=== PATIENT | male | born 1955 | race Caucasian/White ===

== ENCOUNTER → 2017-08-15 | Day surgery (SDC) | payer MEDICARE ==
[2017-08-14 08:28] VITALS: BMI 32.7
[~2017-08-15] MED LIST: INSULIN ASPART 100 UNIT/ML 1 ML 10 ML VIAL SQ SCH; LACTATED RINGERS 1,000 ML IV SCH; PROPOFOL 10 MG/ML 20 ML VIAL IV ONE; SODIUM CHLORIDE 0.9% 1,000 ML IV SCH
[2017-08-15 07:16] LABS: Glucose,Whole Blood 308 mg/dL (75-99)
[2017-08-15 07:19] VITALS: RESP 16
[2017-08-15 08:57] VITALS: TEMP 98
[2017-08-15 10:01] VITALS: PULSE 68
[2017-08-15 10:02] VITALS: BP 140/64
--- NOTE | 2017-08-15 12:19 | CE ---
CARDIAC ELECTROPHYSIOLOGY REPORT This is a 61-year-old male patient who has severe heart failure and cardiomyopathy who underwent biventricular ICD implantation. He was brought in for ICD testing under anesthesia. He has a etaskr device [employer], [id number]. P waves 2.8 mV, pacing impedance in the atrium 470 ohms, pacing threshold 0.5 V at 0.5 milliseconds. The RV sensing was 22.9 mV, pacing impedance 478 ohms, pacing threshold 0.6 V at at 0.5 milliseconds. LV sensing 7.5 mV, pacing impedance 464 ohms and pacing threshold 1.5 V at 1.5 milliseconds, shock impedance 49 ohms. The shock and T-wave protocol was used to induce ventricular fibrillation. This was adequately and appropriately detected at lead sensitivity and successfully internally defibrillated with an 11 joule shock. The charge time was 1.9 seconds. Shock impedance 38 ohms. shock noise. The device was then reprogrammed. Sensitivity reprogrammed to normal sensitivity. MADIT- RIT programming with appropriate antitachycardia pacing, cardioversion and defibrillation. Patient tolerated the procedure well without any acute complications. IMPRESSION: 1. ICD interrogation with reprogramming to MADIT-RIT programming. 2. DFT at or below 11 joules. MMODL / IJN: [id number] /
== END ==
LOC: CATHEP 06:30
PROVIDERS: ATTEND Internal Medicine Clinical Cardiac Electrophysiology
DX: I42.9 Cardiomyopathy, unspecified (principal); I11.0 Hypertensive heart disease with heart failure; I50.9 Heart failure, unspecified; Z87.891 Personal history of nicotine dependence; I25.10 Atherosclerotic heart disease of native coronary artery without angina pectoris; I47.2 Ventricular tachycardia; Z95.1 Presence of aortocoronary bypass graft; E11.9 Type 2 diabetes mellitus without complications; Z79.4 Long term (current) use of insulin; Z95.810 Presence of automatic (implantable) cardiac defibrillator; E78.5 Hyperlipidemia, unspecified; Z82.49 Family history of ischemic heart disease and other diseases of the circulatory system; Z79.899 Other long term (current) drug therapy
CPT/HCPCS: 93642; J2704

== ENCOUNTER → 2017-10-23 | Outpatient (CLI) | payer MEDICARE ==
[2017-10-23 19:51] LABS: Basophils # (A) 0.1 k/uL (0-0.2); Basophils % (A) 1 %; Eosinophils # (A) 0.2 k/uL (0-0.7); Eosinophils % (A) 3 %; HGB 13.7 gm/dL (13.0-17.5); Lymphocytes # (A) 1.4 k/uL (1.0-4.8); Lymphocytes % (A) 20 %; MCH 27.5 pg (25.0-35.0); MCHC 32.6 g/dL (31.0-37.0); MCV 84.5 fL (80.0-100.0); Mean Platelet Volume 9.4; Monocytes # (A) 0.6 k/uL (0-1.0); Monocytes % (A) 8 %; Neutrophils # (A) 4.6 k/uL (1.3-7.7); Neutrophils % (A) 67 %; Platelet Count 234 k/uL (150-450); RBC 4.97 m/uL (4.30-5.90); WBC 6.9 k/uL (3.8-10.6)
[2017-10-23 19:59] LABS: Albumin 4.1 g/dL (3.5-5.0); Potassium 4.7 mmol/L (3.5-5.1); Total Bilirubin 0.7 mg/dL (0.2-1.3); Total Protein 7.2 g/dL (6.3-8.2)
[2017-10-23 20:10] LABS: T4, Free (Free Thyroxine) 2.33 ng/dL (0.78-2.19)
[2017-10-23 20:24] LABS: PSA Annual Screen 0.68 ng/mL (0.00-4.00)
[2017-10-24 01:33] LABS: Hemoglobin A1C 14.3 % (4.0-6.0)
== END | disposition home or self-care (01) ==
LOC: MMGSC 10:51
PROVIDERS: ATTEND Family Medicine
DX: L03.90 Cellulitis, unspecified (principal); E11.9 Type 2 diabetes mellitus without complications; E78.5 Hyperlipidemia, unspecified; Z12.5 Encounter for screening for malignant neoplasm of prostate
CPT/HCPCS: 84439; 80061; 80053; 84443; 85025; 87070; 87205; 82043; 82570; 83036; 36415; G0103

== ENCOUNTER → 2017-11-07 | Outpatient (CLI) | payer MEDICARE ==
[2017-11-07 23:15] LABS: T4, Free (Free Thyroxine) 1.85 ng/dL (0.78-2.19)
== END | disposition home or self-care (01) ==
LOC: MMGSC 10:11
PROVIDERS: ATTEND Family Medicine
DX: R79.89 Other specified abnormal findings of blood chemistry (principal)
CPT/HCPCS: 36415; 84439; 84443; 84480

== ENCOUNTER → 2019-03-09 | Outpatient (CLI) | payer MEDICARE ==
--- NOTE | 2019-03-09 16:05 | US ---
EXAMINATION TYPE: US carotid duplex BILAT DATE OF EXAM: 03/09/2019 COMPARISON: CLINICAL HISTORY: I73.9 Peripheral vascular disease. HTN, no hx of TIA EXAM MEASUREMENTS: RIGHT: Peak Systolic Velocity (PSV) cm/sec ----- Right CCA: 59.7 ----- Right ICA: 119 ----- Right ECA: 103 ICA/CCA ratio: 2.0 RIGHT: End Diastole cm/sec ----- Right CCA: 10.0 ----- Right ICA: 31.2 ----- Right ECA: 0.0 LEFT: Peak Systolic Velocity (PSV) cm/sec ----- Left CCA: 78.7 ----- Left ICA: 53.2 ----- Left ECA: 188.0 ICA/CCA ratio: 0.7 LEFT: End Diastole cm/sec ----- Left CCA: 12.5 ----- Left ICA: 13.9 ----- Left ECA: 9.1 VERTEBRALS (direction of flow): Right Vertebral: Antegrade Left Vertebral: Antegrade Rhythm: Normal Slightly right CCA significant stenosis. Left ECA elevated velocities. Plaque seen in left bulb, le ft CCA and right bulb. No wall thickening. IMPRESSION: Borderline values for 50-69% stenosis within the right internal carotid artery and incid entally noted 50-69% stenosis of the left external carotid artery. CTA could more accurately assess t he degree of stenosis. Criteria for Assigning % of Stenosis / Diameter reduction (Estimation based on the indirect measurements of the internal carotid artery velocities (ICA PSV). 1. Normal (no stenosis)=ICA PSV < 125 cm/s: ratio < 2.0: ICA EDV<40 cm/s. 2. Less than 50% stenosis=ICA PSV < 125 cm/s: ratio < 2.0: ICA EDV<40 cm/s. 3. 50 to 69% stenosis=ICA PSV of 125 to 230 cm/s: ration 2.0 ? 4.0: ICA EDV 40-100 cm/s. 4. Greater than 70% stenosis to near occlusion= ICA PSV > 230 cm/s: ratio > 4.0: ICA EDV > 100 cm/s. 5. Near occlusion= ICA PSV velocities may be low or undetectable: variable ratio and ICA EDV. 6. Total occlusion=unable to detect flow.
== END ==
LOC: RADUSWWP 15:12
PROVIDERS: ATTEND Family Medicine
DX: I65.21 Occlusion and stenosis of right carotid artery (principal)
CPT/HCPCS: 93880

== ENCOUNTER → 2019-12-23 | Outpatient (CLI) | payer MEDICARE ==
--- NOTE | 2019-12-23 15:03 | US ---
LOWER EXTREMITY VENOUS INSUFFICIENCY CLINICAL HISTORY: L97.922 Non-pressure chronic ulcer LL leg fat exp. SIDE PERFORMED: Bilateral 1) Color flow is present and patency is documented in the following vessels. No DVT or SVT is noted . EIV Common Femoral Vein Deep Femoral Vein Femoral Vein Popliteal Vein Proximal Calf Veins Greater Saph Vein Upper Small Saph Vein 2) There is venous reflux noted at the following venous levels: None 3) Incompetent perforators are noted at these levels: None IMPRESSION: No sonographic evidence of deep venous thrombosis within either the visualized bilateral lower extremities. No venous reflux or incompetent perforators seen. No superficial venous thrombosis identified.
--- NOTE | 2019-12-30 13:29 | P.ARTDOP ---
Arterial Doppler LOWER EXTREMITY ARTERIAL DOPPLER: DATE OF SERVICE: 12/23/2019 Reason for study: Bilateral leg ulcers. Doppler waveforms: Multiphasic bilaterally throughout. Pulse volume recording: Mild distal blunting on the left. Pressure gradients: Only at the foot level more on the left than the right. Ankle-brachial indices: Cannot be occluded. Toe brachial indices: 0.62 on the right, 0.30 on the left Impression: Normal proximal flow. Suspect decreased pressure and waveform at the left foot could be vasospastic phenomenon. Suspect adequate circulatory status for healing..
== END | disposition home or self-care (01) ==
LOC: RADUSWWP 13:34
PROVIDERS: ATTEND Family Medicine
DX: I87.333 Chronic venous hypertension (idiopathic) with ulcer and inflammation of bilateral lower extremity (principal); L97.922 Non-pressure chronic ulcer of unspecified part of left lower leg with fat layer exposed; L97.912 Non-pressure chronic ulcer of unspecified part of right lower leg with fat layer exposed; E11.622 Type 2 diabetes mellitus with other skin ulcer
CPT/HCPCS: 93922; 93923; 93970

== ENCOUNTER 2020-05-24 12:11 | Inpatient (IN) | payer MEDICARE ==
[2020-05-24] MEDS ORDERED: NON FORMULARY DRUG (Dulaglutide [Trulicity] 0.75 MG) SQ SCH (14:45)
[2020-05-24] MEDS: SODIUM CHLORIDE 0.9% 1,000 ML IV SCH (15:10)
[2020-05-24] MEDS: FUROSEMIDE 40 MG TAB PO SCH (15:18)
[2020-05-24] MEDS: PIPERACILLIN-TAZOBACTAM 3.375 GM in SODIUM CHLORIDE 0.9% 100 ML IVPB SCH ×2 (15:18→23:26)
[2020-05-24] MEDS: INSULIN ASPART (NovoLOG) 100 UNIT/ML VIAL SQ SCH ×2 (16:58→20:36)
[2020-05-24 16:59] LABS: Glucose,Whole Blood 110 mg/dL (75-99)
[2020-05-24 17:11] LABS: Basophils # (A) 0.1 k/uL (0-0.2); Basophils % (A) 1 %; Eosinophils # (A) 0.3 k/uL (0-0.7); Eosinophils % (A) 4 %; HCT 32.5 % (39.0-53.0); HGB 10.5 gm/dL (13.0-17.5); Lymphocytes # (A) 1.5 k/uL (1.0-4.8); Lymphocytes % (A) 24 %; MCH 26.6 pg (25.0-35.0); MCHC 32.3 g/dL (31.0-37.0); MCV 82.3 fL (80.0-100.0); Mean Platelet Volume 8.7; Monocytes # (A) 0.5 k/uL (0-1.0); Monocytes % (A) 8 %; Neutrophils % (A) 62 %; Platelet Count 201 k/uL (150-450); RBC 3.94 m/uL (4.30-5.90); WBC 6.5 k/uL (3.8-10.6)
[2020-05-24 17:17] LABS: Albumin 3.4 g/dL (3.5-5.0); Calcium 8.8 mg/dL (8.4-10.2); Potassium 4.4 mmol/L (3.5-5.1); Total Bilirubin 0.5 mg/dL (0.2-1.3); Total Protein 6.1 g/dL (6.3-8.2)
[2020-05-24] MEDS: metOLazone 2.5 MG TAB PO SCH (17:21)
[2020-05-24 20:33] LABS: Glucose,Whole Blood 123 mg/dL (75-99)
[2020-05-24] MEDS: INSULIN DETEMIR (LEVEMIR) 100 UNIT/ML SYR SQ SCH (20:42)
--- NOTE | 2020-05-24 23:57 | P.CONS ---
History of Present Illness - Reason for Consult Consult date: 05/24/20 Bilateral lower extremity wound and cellulitis Requesting physician: Johny Granado - Chief Complaint Bilateral leg wound and redness few days - History of Present Illness Patient is 64-year-old male with a past medical history significant for bilateral lower extremity venous stasis ulcer for the patient follow-up at the wound care center, patient has been evaluated in outpatient setting by his primary care physician was noticed to have more swelling in the leg and some redness with concern for cellulitis patient had been admitted to the hospital and infectious disease was consulted for further management of antibiotic therapy Patient at time of evaluation today that is a 05/24/2020 denies having any fever or chills , patient did have mild the leg pain to the leg wound area with intensity to 3 out of 10 and no radiation patient did have more swelling and redness to the right and left leg denies having any purulent drainage patient denies any chest pain shortness breath or cough no nausea no vomiting no abdominal pain and no diarrhea Review of Systems Positive point has been mentioned in the HPI rest of the systems are negative Past Medical History Past Medical History: Coronary Artery Disease (CAD), Heart Failure, Diabetes Mellitus, Eye Disorder, GERD/Reflux, Hearing Disorder / Deafness, Hyperlipidemia, Hypertension, Myocardial Infarction (LA), Osteoarthritis (OA), Renal Disease, Thyroid Disorder Additional Past Medical History / Comment(s): IDDM type II, neuropathy bilateral hands/forearms/lower legs/feet, current bilateral lower leg wounds/WCC pt, bilateral leg edema, bilateral lower leg cellulitis, ischemic cardiomyopathy/AICD, vtach, past medical record documents paroxysmal Afib/pt does not recall this, bilateral lower leg intermittent claudiaction/PAD, chronic renal disease stage III, anemia, bilateral tinnitis/[place], hypothyroid, arthritis bilateral hands with R hand worse, bilateral glaucoma. Last Myocardial Infarction Date:: 2006 History of Any Multi-Drug Resistant Organisms: None Reported Past Surgical History: Coronary Bypass/CABG, Heart Catheterization, Heart Catheterization With Stent, Pacemaker Additional Past Surgical History / Comment(s): PCI with stent 1998, 2006 CABG 3 vessel and AICD, DFTs, aortagram with runoff, colonoscopy, bilateral cataract removals/lens implants. Past Anesthesia/Blood Transfusion Reactions: No Reported Reaction Date of Last Stent Placement:: 1998 Type of Cardiac Device: Permanent Pacemaker Device Placement Date:: 2006 Past Psychological History: No Psychological Hx Reported Additional Psychological History / Comment(s): Pt resides with his spouse. He uses a cane or walker to ambulate. He drives. Smoking Status: Former smoker Past Alcohol Use History: None Reported, Rare Additional Past Alcohol Use History / Comment(s): STARTED SMOKING AT AGE 17 QUIT 2006 SMOKED 1 1/2 PPD Past Drug Use History: None Reported - Past Family History Sister(s) Additional Family Medical History / Comment(s): Pt has a sister with COPD, another sister with diabetes/copd/htn and another sister with diabetes. Father Family Medical History: Myocardial Infarction (LA) Additional Family Medical History / Comment(s): Father of a LA at the age of 75 yrs. Brother(s) Family Medical History: Coronary Artery Disease (CAD), CVA/TIA, Diabetes Mellitus, Myocardial Infarction (LA) Additional Family Medical History / Comment(s): One brother had a LA at 38yrs and at age 48yrs. Another brother is alive and had a stroke. Mother Family Medical History: Diabetes Mellitus, Renal Disease Additional Family Medical History / Comment(s): Mother at age 62 from renal failure Medications and Allergies Home Medications Medication Instructions Recorded Confirmed Type Fenofibrate 160 mg PO DAILY 03/31/14 05/24/20 History Insulin Lispro [humaLOG Kwikpen] 8 - 10 units SQ DAILY PRN 03/31/14 05/24/20 History Losartan Potassium 50 mg PO DAILY 03/31/14 05/24/20 History Insulin Glargine,Hum.rec.anlog 30 units SQ HS 06/07/17 05/24/20 History [Toujeo Solostar] Atorvastatin [Lipitor] 40 mg PO DAILY 05/24/20 05/24/20 History Dulaglutide [Trulicity] 0.75 mg SQ TU 05/24/20 05/24/20 History Furosemide [Lasix] 40 mg PO BID 05/24/20 05/24/20 History Levothyroxine Sodium [Synthroid] 50 mcg PO DAILY 05/24/20 05/24/20 History Levothyroxine Sodium [Synthroid] 200 mcg PO DAILY 05/24/20 05/24/20 History Metoprolol Tartrate 75 mg PO DAILY 05/24/20 05/24/20 History metOLazone 2.5 mg PO Q48H 05/24/20 05/24/20 History Allergies Allergy/AdvReac Type Severity Reaction Status Date / Time No Known Allergies Allergy Verified 05/24/20 14:17 Physical Exam Vitals: Vital Signs Temp Pulse Resp BP Pulse Ox 05/24/20 19:35 97.6 F 63 16 134/74 99 05/24/20 13:23 97.7 F 65 16 113/73 99 Intake and Output 05/24/20 05/24/20 05/25/20 14:59 22:59 06:59 Intake Total 425 Balance 425 Intake: Intake, IV Titration 225 Amount Sodium Chloride 0.9% 1, 225 000 ml @ 75 mls/hr IV . [id number] VICK Rx#:[id number] Oral 200 Other: Voiding Method Toilet Toilet # Voids 2 Weight 91.229 kg GENERAL DESCRIPTION: Middle-aged male lying in bed, no distress. No tachypnea or accessory muscle of respiration use. HEENT: Shows Pallor , no scleral icterus. Oral mucous membrane is dry. No pharyngeal erythema or thrush NECK: Trachea central, no thyromegaly. LUNGS: Unlabored breathing. Clear to auscultation anteriorly. No wheeze or crackle. HEART: S1, S2, regular rate and rhythm. No loud murmur ABDOMEN: Soft, no tenderness , guarding or rigidity, no organomegaly EXTREMITIES: Bilateral lower extremity with diffuse swelling some superficial ulceration minimal redness no foul-smelling drainage. SKIN: No rash, no masses palpable. NEUROLOGICAL: The patient is awake, alert, oriented x3, mood and affect normal. Results CBC & Chem 7: 05/24/20 16:50 05/24/20 16:50 Labs: Abnormal Lab Results - Last 24 Hours (Table) 05/24/20 05/24/20 05/24/20 Range/Units 16:50 16:50 16:50 RBC 3.94 L (4.30-5.90) m/uL Hgb 10.5 L (13.0-17.5) gm/dL Hct 32.5 L (39.0-53.0) % ESR 35 H (0-15) mm/hr BUN 35 H (9-20) mg/dL Creatinine 1.59 H (0.66-1.25) mg/dL Glucose 105 H (74-99) mg/dL POC Glucose (mg/dL) (75-99) mg/dL Total Protein 6.1 L (6.3-8.2) g/dL Albumin 3.4 L (3.5-5.0) g/dL 05/24/20 05/24/20 Range/Units 16:57 20:31 RBC (4.30-5.90) m/uL Hgb (13.0-17.5) gm/dL Hct (39.0-53.0) % ESR (0-15) mm/hr BUN (9-20) mg/dL Creatinine (0.66-1.25) mg/dL Glucose (74-99) mg/dL POC Glucose (mg/dL) 110 H 123 H (75-99) mg/dL Total Protein (6.3-8.2) g/dL Albumin (3.5-5.0) g/dL Assessment and Plan Assessment: 1- patient with bilateral lower extremity venous stasis ulcer and cellulitis right greater than the left with concern for possible streptococcal cellulitis or gram-positive skin chano clinically doubt gram-negative infection (1) Bilateral lower leg cellulitis Current Visit: Yes Status: Acute Code(s): L03.116 - CELLULITIS OF LEFT LOWER LIMB; L03.115 - CELLULITIS OF RIGHT LOWER LIMB SNOMED Code(s): 495616362 Plan: 1- discontinue Zosyn 2-start the patient cefazolin 2 g every 8 hours 3-local wound care with Aquacel silver dressing followed by Jose wrap from just above the toe to below the knee We will follow on clinical condition and cultures to further adjust medication if needed Thank you for this consultation will follow this patient with you Time with Patient: Greater than 30
[2020-05-25 00:23] LABS: Hemoglobin A1C 8.3 % (4.0-6.0)
[2020-05-25] MEDS: LEVOTHYROXINE 50 MCG TAB PO SCH (05:04)
[2020-05-25] MEDS: LEVOTHYROXINE 100 MCG TAB PO SCH (05:04)
[2020-05-25] MEDS: SODIUM CHLORIDE 0.9% 1,000 ML IV SCH ×3 (05:04→23:49)
[2020-05-25 06:55] LABS: Glucose,Whole Blood 72 mg/dL (75-99)
[2020-05-25] MEDS: INSULIN ASPART (NovoLOG) 100 UNIT/ML VIAL SQ SCH ×4 (07:18→20:25)
[2020-05-25] MEDS: FUROSEMIDE 40 MG TAB PO SCH ×2 (07:36→15:35)
[2020-05-25] MEDS: ATORVASTATIN 40 MG TAB PO SCH (07:36)
[2020-05-25] MEDS: FENOFIBRATE 160 MG TAB PO SCH (07:36)
[2020-05-25] MEDS: LOSARTAN 50 MG TAB PO SCH (07:36)
[2020-05-25] MEDS: METOPROLOL TARTRATE 25 MG TAB PO SCH (07:37)
[2020-05-25 08:05] LABS: Basophils # (A) 0.1 k/uL (0-0.2); Basophils % (A) 1 %; Eosinophils # (A) 0.4 k/uL (0-0.7); Eosinophils % (A) 5 %; HCT 34.2 % (39.0-53.0); HGB 10.9 gm/dL (13.0-17.5); Lymphocytes % (A) 25 %; MCH 26.1 pg (25.0-35.0); MCHC 31.8 g/dL (31.0-37.0); MCV 81.9 fL (80.0-100.0); Mean Platelet Volume 8.2; Monocytes # (A) 0.6 k/uL (0-1.0); Monocytes % (A) 8 %; Neutrophils # (A) 4.6 k/uL (1.3-7.7); Neutrophils % (A) 59 %; Platelet Count 219 k/uL (150-450); RBC 4.18 m/uL (4.30-5.90); RDW 13.8 % (11.5-15.5); WBC 7.8 k/uL (3.8-10.6)
[2020-05-25 08:20] LABS: Albumin 3.5 g/dL (3.5-5.0); Calcium 8.9 mg/dL (8.4-10.2); Total Bilirubin 0.5 mg/dL (0.2-1.3); Total Protein 6.4 g/dL (6.3-8.2)
--- NOTE | 2020-05-25 08:58 | XR ---
EXAMINATION TYPE: XR chest 2V DATE OF EXAM: 05/25/2020 CLINICAL HISTORY: Shortness of breath. Dyspnea. TECHNIQUE: Frontal and lateral views of the chest are obtained. COMPARISON: 12/31/2014 chest radiograph FINDINGS: Left-sided biventricular 3-lead AICD. The cardiomediastinal silhouette is within normal li mits for size. Pulmonary vasculature is normal. There is no focal air space opacity, pleural effusion , or pneumothorax seen. The osseous structures are intact. IMPRESSION: No acute cardiopulmonary process.
--- NOTE | 2020-05-25 09:31 | HP ---
HISTORY AND PHYSICAL A 64-year-old white male who was admitted with bilateral lower extremity venostasis ulcer and worsening wound infection. He had a wound dressing that was matted onto his leg. He changes once a week. He has severe swelling and redness about baseball size across his anterior tibia of the right leg. He has large amount of lymphedema in bilateral legs, 3/10 pain, swelling and redness and purulent drainage. He says he has been trying to change dressing once a week with some Aquacel Silver. He does go to the wound clinic once in a while. 14 POINT REVIEW OF SYSTEMS: Negative. PAST MEDICAL HISTORY: Coronary artery disease, heart failure, diabetes mellitus, eye disorder, hearing disorder, hypertension, myocardial infarction, osteoarthritis, renal disease, thyroid disorder, type 2 diabetes mellitus, neuropathy bilateral hands, lymphedema type changes in his legs as mentioned, ischemic cardiomyopathy, AICD. His pacemaker is hypothyroid arthritis. He had recently uncontrolled diabetes and recently his A1c went from 14 down to 9. PAST SURGICAL HISTORY: CABG surgery, heart catheterization with stents, pacemaker. He resides with his spouse. He has a couple of kids, former smoker, rare alcohol. PAST FAMILY HISTORY: Sister, COPD, diabetes. Father myocardial infarction. Brother coronary artery disease, diabetes mellitus in the mother, diabetes mellitus, renal disease. MEDICATIONS: Fenofibrate 160 mg daily, Humalog Quick Pen 8-10 units subcu with meals, losartan 50 mg daily, Tujeo 30 units daily, Lipitor 40 daily, Trulicity 0.75 mg subcu on Tuesdays, Lasix 40 mg b.i.d., Synthroid 250 mcg daily, metoprolol tartrate 25 mg daily, metabolism 2.5 mg q.48 hours. ALLERGIES: No known drug allergies. Temperature 97.6, pulse 60s, respiratory rate 16 to 18, blood pressure 113 to 134/70s, O2 saturation 99%. CARDIOVASCULAR: S1-S2. LUNGS: Some rales at the bases. PSYCH: Fair mood and affect. NEUROLOGIC: Cranial nerves are intact. Pupils equal, round, reactive. EXTREMITIES: Show lymphedema type swelling, ulceration and redness of the lower extremity, a small size over the anterior tibia of the right leg. NEUROLOGIC: Cranial nerves are intact. White count 6.5, hemoglobin is 10.5. His BUN is 35, creatinine 1.99, hemoglobin 10.5, albumin is 3.4. He has venostasis ulcer, cellulitis, right greater than left and cellulitis of the leg, diabetes mellitus, uncontrolled. History of coronary artery disease, hypothyroidism, hypertension, lymphedema. He is on cefazolin 2 g every 8 hours, Aquacel dressings. Possibly discharge home when his leg improves in the next 24- 48 hours. MMODL / IJN: [id number] /
[2020-05-25 11:44] LABS: Glucose,Whole Blood 202 mg/dL (75-99)
[2020-05-25 16:46] LABS: Glucose,Whole Blood 104 mg/dL (75-99)
--- NOTE | 2020-05-25 17:17 | PN ---
PROGRESS NOTE DATE OF SERVICE: 05/25/2020 REASON FOR FOLLOWUP: Bilateral lower extremity wound and cellulitis. INTERVAL HISTORY: The patient is currently afebrile, has been breathing comfortably. Denies having any chest pain or cough. No nausea, vomiting, abdominal pain or any worsening pain in the legs. PHYSICAL EXAMINATION: Blood pressure is 100/59 with a pulse of 66, temperature 97.9. He is 94% on room air. General description is a middle-aged male up in the chair in no distress. RESPIRATORY SYSTEM: Unlabored breathing. Clear to auscultation anteriorly. HEART: S1, S2. Regular rate and rhythm. ABDOMEN: Soft. No tenderness. Bilateral lower extremities have some swelling, some redness. No drainage. LABS: Hemoglobin is 10.9, white count 7.8, BUN of 37, creatinine 1.95. DIAGNOSTIC IMPRESSION AND PLAN: Patient with bilateral lower extremity venostasis ulcers with secondary cellulitis. Local care to continue with dry Aquacel Silver dressing and Jose wrap to keep the swelling down. IV cefazolin. Monitor his clinical course closely. MMODL / IJN: [id number] /
[2020-05-25 20:12] LABS: Glucose,Whole Blood 216 mg/dL (75-99)
[2020-05-25] MEDS: INSULIN DETEMIR (LEVEMIR) 100 UNIT/ML SYR SQ SCH (20:25)
[2020-05-26] MEDS: LEVOTHYROXINE 100 MCG TAB PO SCH (05:58)
[2020-05-26] MEDS: LEVOTHYROXINE 50 MCG TAB PO SCH (05:58)
[2020-05-26 06:55] LABS: Glucose,Whole Blood 84 mg/dL (75-99)
[2020-05-26] MEDS: SODIUM CHLORIDE 0.9% 1,000 ML IV SCH ×2 (07:22→20:26)
[2020-05-26] MEDS: METOPROLOL TARTRATE 25 MG TAB PO SCH (07:23)
[2020-05-26] MEDS: ATORVASTATIN 40 MG TAB PO SCH (07:23)
[2020-05-26] MEDS: INSULIN ASPART (NovoLOG) 100 UNIT/ML VIAL SQ SCH ×4 (07:23→20:25)
[2020-05-26] MEDS: FUROSEMIDE 40 MG TAB PO SCH ×2 (07:23→15:04)
[2020-05-26] MEDS: FENOFIBRATE 160 MG TAB PO SCH (07:23)
[2020-05-26] MEDS: LOSARTAN 50 MG TAB PO SCH (07:23)
[2020-05-26 12:08] LABS: Glucose,Whole Blood 125 mg/dL (75-99)
--- NOTE | 2020-05-26 15:02 | PN ---
PROGRESS NOTE DATE OF SERVICE: 05/26/2020 REASON FOR FOLLOWUP: Bilateral lower extremity cellulitis, right greater than left. INTERVAL HISTORY: The patient is currently afebrile. The patient is feeling better. Breathing comfortably. Denies having any chest pain, cough, abdominal pain, or any worsening pain to the leg. PHYSICAL EXAMINATION: Blood pressure 132/67, pulse of 82, temperature 98.9. He is 93% on room air. General description is a middle-aged male, up in the chair in no distress. RESPIRATORY SYSTEM: Unlabored breathing, clear to auscultation anteriorly. HEART: S1, S2. Regular rate and rhythm. ABDOMEN: Soft, no tenderness. Legs are currently wrapped up. No obvious drainage on the dressing. LABS: Blood culture negative. DIAGNOSTIC IMPRESSION AND PLAN: Patient with bilateral lower extremity cellulitis, right greater than the left in this patient who did have bilateral lower extremity venostasis ulcer. Patient currently responding to cefazolin to continue finish therapy with oral Keflex. Continue Aquacel Silver dressing and Jose wrap to the leg and monitor clinical course closely. MMODL / IJN: [id number] /
[2020-05-26] MEDS: metOLazone 2.5 MG TAB PO SCH (15:04)
[2020-05-26 17:03] LABS: Glucose,Whole Blood 206 mg/dL (75-99)
[2020-05-26 20:16] LABS: Glucose,Whole Blood 158 mg/dL (75-99)
[2020-05-26] MEDS: INSULIN DETEMIR (LEVEMIR) 100 UNIT/ML SYR SQ SCH (20:25)
[2020-05-27 01:39] VITALS: TEMP 97.9
[2020-05-27] MEDS: LEVOTHYROXINE 100 MCG TAB PO SCH (05:58)
[2020-05-27] MEDS: LEVOTHYROXINE 50 MCG TAB PO SCH (05:59)
[2020-05-27 07:28] LABS: Glucose,Whole Blood 133 mg/dL (75-99)
[2020-05-27] MEDS: INSULIN ASPART (NovoLOG) 100 UNIT/ML VIAL SQ SCH ×2 (07:41→13:19)
[2020-05-27] MEDS: ATORVASTATIN 40 MG TAB PO SCH (07:43)
[2020-05-27] MEDS: FUROSEMIDE 40 MG TAB PO SCH (07:44)
[2020-05-27] MEDS: LOSARTAN 50 MG TAB PO SCH (07:44)
[2020-05-27] MEDS: METOPROLOL TARTRATE 25 MG TAB PO SCH (07:44)
[2020-05-27] MEDS: FENOFIBRATE 160 MG TAB PO SCH (07:46)
[2020-05-27 07:47] VITALS: BP 132/62; PULSE 72; RESP 16
[2020-05-27] MEDS: SODIUM CHLORIDE 0.9% 1,000 ML IV SCH (07:49)
[2020-05-27 12:26] LABS: Glucose,Whole Blood 177 mg/dL (75-99)
--- NOTE | 2020-05-27 12:42 | PN ---
PROGRESS NOTE DATE OF SERVICE: 05/27/2020 REASON FOR FOLLOWUP: Bilateral lower extremity cellulitis. INTERVAL HISTORY: Patient is currently afebrile. The patient denies having any chest pain, shortness of breath or cough. No nausea, no vomiting, no abdominal pain or pain to the lower extremity. PHYSICAL EXAMINATION: Blood pressure 132/62 with a pulse of 78, temperature 97.9, he is 96% on room air. General description is an middle-aged male, up in the chair in no distress. RESPIRATORY SYSTEM: Unlabored breathing, clear to auscultation anteriorly. HEART: S1, S2. Regular rate and rhythm. ABDOMEN: Soft, no tenderness. LABS: No new labs have been obtained today. DIAGNOSTIC IMPRESSION AND PLAN: Patient with bilateral lower extremity cellulitis, right greater than left in this patient. Overall clinical improvement on cefazolin, finished therapy with oral Keflex. Prescription sent to the pharmacy. Continue supportive care. MMODL / IJN: [id number] /
--- NOTE | 2020-05-29 12:02 | CDI ---
Documentation Clarification Form Date: 05/29/2020 11:53:10 AM From: Mariluz Salazar Phone: If you have a question about this query, please contact Anette Lindsey, State Archivist at [phone] between 8am and 5pm. Admit Date: 05/24/2020 12:52:00 PM Patient Name: Cruz Sorenson V Visit Number: [id number] Discharge Date: 05/27/2020 03:15:00 PM ATTENTION: The Clinical Documentation Specialists (CDI) and [facility] Coding Staff appreciate your assistance in clarifying documentation. Please respond to the clarification below the line at the bottom and electronically sign. The CDI & [facility] Coding staff will review the response and follow-up if needed. Please note: Queries are made part of the Legal Health Record. If you have any questions, please contact the author of this message via ITS. Dr. Johny Granado Your patient has the documented diagnosis of bilateral lower extremity cellulitis and DM with PAD, neuropathy and CKD III. Please clarify if there is a link between the diabetes and the cellulitis. A relationship between diagnoses cannot be assumed unless documented as such by the attending physician. In order to capture the severity of condition; please document the relationship, if any, between these diagnoses. History/Risk Factors: DM with peripheral neuropathy and PAD. Venous stasis ulcers Treatment: cefazolin 2 g every 8 hours . Aquacel dressings. Please clarify and document your clinical opinion in the progress notes and discharge summary if any relationship (due to, caused by, secondary to) exists between these two diagnoses. Please include clinical findings supporting your diagnosis. Link between DM and cellulitis No link between DM and cellulitis Other explanation of clinical findings (please specify) Unable to determine (no explanation for clinical findings) MTDD
--- NOTE | 2020-05-30 20:47 | PN ---
PROGRESS NOTE ADDENDUM: Diabetic mellitus and cellulitis. MMODL / IJN: [id number] /
== END 2020-05-27 15:15 | disposition home or self-care (01) | DRG 638 ==
LOC: 4SSUR 12:52
PROVIDERS: ADMIT Family Medicine; ATTEND Family Medicine
DX: E11.628 Type 2 diabetes mellitus with other skin complications (principal); L03.115 Cellulitis of right lower limb; L97.919 Non-pressure chronic ulcer of unspecified part of right lower leg with unspecified severity; L97.929 Non-pressure chronic ulcer of unspecified part of left lower leg with unspecified severity; I13.0 Hypertensive heart and chronic kidney disease with heart failure and stage 1 through stage 4 chronic kidney disease, or unspecified chronic kidney disease; L03.116 Cellulitis of left lower limb; I83.029 Varicose veins of left lower extremity with ulcer of unspecified site; I89.0 Lymphedema, not elsewhere classified; I50.9 Heart failure, unspecified; I83.019 Varicose veins of right lower extremity with ulcer of unspecified site; E03.9 Hypothyroidism, unspecified; E11.40 Type 2 diabetes mellitus with diabetic neuropathy, unspecified; Z79.4 Long term (current) use of insulin; E78.5 Hyperlipidemia, unspecified; H91.90 Unspecified hearing loss, unspecified ear; I25.10 Atherosclerotic heart disease of native coronary artery without angina pectoris; I25.2 Old myocardial infarction; I25.5 Ischemic cardiomyopathy; I48.0 Paroxysmal atrial fibrillation; M19.90 Unspecified osteoarthritis, unspecified site; E11.22 Type 2 diabetes mellitus with diabetic chronic kidney disease; N18.3 Chronic kidney disease, stage 3 (moderate); Z79.890 Hormone replacement therapy; Z79.899 Other long term (current) drug therapy; Z82.3 Family history of stroke; Z82.49 Family history of ischemic heart disease and other diseases of the circulatory system; Z82.5 Family history of asthma and other chronic lower respiratory diseases; Z83.3 Family history of diabetes mellitus; Z84.1 Family history of disorders of kidney and ureter; Z87.891 Personal history of nicotine dependence; Z95.1 Presence of aortocoronary bypass graft; Z95.5 Presence of coronary angioplasty implant and graft; Z98.42 Cataract extraction status, left eye; Z98.41 Cataract extraction status, right eye; Z96.1 Presence of intraocular lens; H40.9 Unspecified glaucoma; H93.13 Tinnitus, bilateral; E11.51 Type 2 diabetes mellitus with diabetic peripheral angiopathy without gangrene; I70.213 Atherosclerosis of native arteries of extremities with intermittent claudication, bilateral legs
CPT/HCPCS: 71046; 80053; 83036; 83880; 85025; 85652; 86140; 87040

== ENCOUNTER 2020-06-23 07:17 | Day surgery (SDC) | payer MEDICARE ==
[2020-06-21 15:07] VITALS: BMI 31.1
[~2020-06-23 07:17] MED LIST changes: -INSULIN ASPART 100 UNIT/ML 1 ML 10 ML VIAL SQ SCH; +LIDOCAINE 1% (10MG/ML) FOR IV START INTRADERMA PRN; -PROPOFOL 10 MG/ML 20 ML VIAL IV ONE; -SODIUM CHLORIDE 0.9% 1,000 ML IV SCH
[2020-06-23 07:53] VITALS: TEMP 97.6
[2020-06-23 08:11] LABS: Glucose,Whole Blood 83 mg/dL (75-99)
[2020-06-23] MEDS ORDERED: PROPOFOL 10 MG/ML 20 ML VIAL IV ONE (08:21)
--- NOTE | 2020-06-23 08:24 | P.GSHP ---
History of Present Illness H&P Date: 06/23/20 Chief Complaint: Diarrhea This a 64-year-old male presents today for colonoscopy. He's had issues with diarrhea. Past Medical History Past Medical History: Coronary Artery Disease (CAD), Heart Failure, Diabetes Mellitus, Eye Disorder, GERD/Reflux, Hearing Disorder / Deafness, Hyperlipidemia, Hypertension, Myocardial Infarction ([place]), Osteoarthritis (OA), Renal Disease, Thyroid Disorder Additional Past Medical History / Comment(s): IDDM type II, neuropathy bilateral hands/forearms/lower legs/feet, RECENT ADMISSION FOR bilateral lower leg wounds/WCC pt, bilateral leg edema, CURRENTLY LEFT LEG IS CLEAR, RT LEG STILL HAS SOME CELLULITIS WITH A DRESSING ON IT, ischemic cardiomyopathy/AICD, vtach, past medical record documents paroxysmal Afib/pt does not recall this, bilateral lower leg intermittent claudiaction/PAD, chronic renal disease stage III, anemia, bilateral tinnitis/[place], hypothyroid, arthritis bilateral hands with R hand worse, Last Myocardial Infarction Date:: 2006 History of Any Multi-Drug Resistant Organisms: None Reported Past Surgical History: Coronary Bypass/CABG, Heart Catheterization, Heart Catheterization With Stent, Pacemaker Additional Past Surgical History / Comment(s): PCI with stent 1998, 2006 CABG 3 vessel and AICD, DFTs, aortagram with runoff, colonoscopy, bilateral cataract removals/lens implants. Past Anesthesia/Blood Transfusion Reactions: No Reported Reaction Date of Last Stent Placement:: 1998 Type of Cardiac Device: Permanent Pacemaker Device Placement Date:: 2006 Past Psychological History: No Psychological Hx Reported Additional Psychological History / Comment(s): Pt resides with his spouse. He uses a cane or walker to ambulate. He drives. Smoking Status: Former smoker Past Alcohol Use History: None Reported Additional Past Alcohol Use History / Comment(s): STARTED SMOKING AT AGE 17 QUIT 2006 SMOKED 1 1/2 PPD Past Drug Use History: None Reported - Past Family History Sister(s) Additional Family Medical History / Comment(s): Pt has a sister with COPD, another sister with diabetes/copd/htn and another sister with diabetes. Father Family Medical History: Myocardial Infarction ([place]) Additional Family Medical History / Comment(s): Father of a [place] at the age of 75 yrs. Brother(s) Family Medical History: Coronary Artery Disease (CAD), CVA/TIA, Diabetes Mellitus, Myocardial Infarction ([place]) Additional Family Medical History / Comment(s): One brother had a [place] at 38yrs and at age 48yrs. Another brother is alive and had a stroke. Mother Family Medical History: Diabetes Mellitus, Renal Disease Additional Family Medical History / Comment(s): Mother at age 62 from renal failure Medications and Allergies Home Medications Medication Instructions Recorded Confirmed Type Fenofibrate 160 mg PO DAILY 03/31/14 06/21/20 History Insulin Lispro [humaLOG Kwikpen] 8 - 10 units SQ ACHS PRN 03/31/14 06/21/20 History Losartan Potassium 50 mg PO DAILY 03/31/14 06/21/20 History Insulin Glargine,Hum.rec.anlog 30 units SQ HS 06/07/17 06/21/20 History [Toujeo Solostar] Atorvastatin [Lipitor] 40 mg PO DAILY 05/24/20 06/21/20 History Dulaglutide [Trulicity] 0.75 mg SQ TU 05/24/20 06/21/20 History Furosemide [Lasix] 40 mg PO BID 05/24/20 06/21/20 History Levothyroxine Sodium [Synthroid] 50 mcg PO DAILY 05/24/20 06/21/20 History Levothyroxine Sodium [Synthroid] 200 mcg PO DAILY 05/24/20 06/21/20 History Metoprolol Tartrate 75 mg PO DAILY 05/24/20 06/21/20 History metOLazone 2.5 mg PO Q48H 05/24/20 06/21/20 History Allergies Allergy/AdvReac Type Severity Reaction Status Date / Time No Known Allergies Allergy Verified 06/21/20 14:52 Surgical - Exam Vital Signs Temp Pulse Resp BP Pulse Ox 97.6 F 67 20 128/61 100 06/23/20 07:52 06/23/20 07:52 06/23/20 07:52 06/23/20 07:52 06/23/20 07:52 - General well developed, well nourished, no distress - Eyes PERRL - ENT normal pinna - Neck no masses - Respiratory normal expansion - Cardiovascular Rhythm: regular - Abdomen Abdomen: soft, non tender Assessment and Plan Assessment: Diarrhea. We'll perform colonoscopy.
--- NOTE | 2020-06-23 08:36 | P.OP ---
Date of Procedure: 06/23/20 Preoperative Diagnosis: Diarrhea Postoperative Diagnosis: Diverticulosis Biopsies of sigmoid colon and rectum pending No evidence of colitis Procedure(s) Performed: Colonoscopy Anesthesia: MAC Surgeon: Prosper Schilling Pathology: none sent (Rectum, sigmoid) Condition: stable Disposition: PACU Description of Procedure: The patient's placed on the endoscopy table in the lateral position. He received IV sedation. The digital rectal exam was performed which revealed no abnormalities. The prostate was symmetric without nodules. The flexible colonoscope was then placed patient anus and passed throughout the entire colon. The ileocecal valve visualized. The cecum, ascending and transverse colon ap peared normal. The descending and sigmoid colon there was moderate diverticular changes. There is no evidence of colitis. A random biopsy of the sigmoid colon and rectum were performed using the cold forcep. Scope was withdrawn from patient.
[2020-06-23 08:39] VITALS: RESP 16
[2020-06-23 08:53] VITALS: BP 100/60; PULSE 62
[2020-06-23 08:58] LABS: Glucose,Whole Blood 74 mg/dL (75-99)
== END 2020-06-23 09:34 | disposition home or self-care (01) ==
LOC: ORWHC2ENDO 07:17
PROVIDERS: ATTEND Surgery
DX: K57.30 Diverticulosis of large intestine without perforation or abscess without bleeding (principal); I13.0 Hypertensive heart and chronic kidney disease with heart failure and stage 1 through stage 4 chronic kidney disease, or unspecified chronic kidney disease; E11.22 Type 2 diabetes mellitus with diabetic chronic kidney disease; N18.3 Chronic kidney disease, stage 3 (moderate); I50.9 Heart failure, unspecified; I25.10 Atherosclerotic heart disease of native coronary artery without angina pectoris; F32.9 Major depressive disorder, single episode, unspecified; E03.9 Hypothyroidism, unspecified; I89.0 Lymphedema, not elsewhere classified; E66.9 Obesity, unspecified; K21.9 Gastro-esophageal reflux disease without esophagitis; H91.90 Unspecified hearing loss, unspecified ear; E78.5 Hyperlipidemia, unspecified; I25.2 Old myocardial infarction; I25.5 Ischemic cardiomyopathy; I48.0 Paroxysmal atrial fibrillation; M19.042 Primary osteoarthritis, left hand; M19.041 Primary osteoarthritis, right hand; Z95.810 Presence of automatic (implantable) cardiac defibrillator; Z83.3 Family history of diabetes mellitus; Z95.5 Presence of coronary angioplasty implant and graft; Z87.891 Personal history of nicotine dependence; Z79.4 Long term (current) use of insulin; Z79.899 Other long term (current) drug therapy; Z79.890 Hormone replacement therapy; Z82.49 Family history of ischemic heart disease and other diseases of the circulatory system; Z68.31 Body mass index [BMI] 31.0-31.9, adult
CPT/HCPCS: 88305; 45380; J2704

== ENCOUNTER 2020-09-21 23:28 | Inpatient (IN) | payer MEDICARE ==
--- NOTE | 2020-09-22 00:23 | ED ---
General Adult HPI - General Chief complaint: Fever Stated complaint: Fever Time Seen by Provider: 09/21/20 23:49 Source: patient Mode of arrival: wheelchair Limitations: no limitations - History of Present Illness Initial comments: 65-year-old male patient presents to the emergency department today for evaluation of fever. Patient states he believes he had a fever starting yesterday. States that the he is having associated nasal congestion and draina ge. States he is sneezing. He denies sore throat or cough. Denies any shortness of breath. Denies abdominal pain, nausea, or vomiting. Denies any diarrhea or constipation. Denies loss of taste or smell. Denies any sick contacts. He does have chronic wounds to the bilateral feet and legs. States he does get regular wound care, last visit to the wound care center was yesterday. They were aware of his fever and were not concerned for wound infection. Patient denies any recent rash, chest pain, abdominal pain, back pain, numbness, tingling, dizziness, weakness, hematuria, dysuria, urinary urgency, urinary frequency, headache, visual changes, or any other complaints. - Related Data Home Medications Medication Instructions Recorded Confirmed Fenofibrate 160 mg PO DAILY 03/31/14 06/21/20 Insulin Lispro [humaLOG Kwikpen] 8 - 10 units SQ ACHS PRN 03/31/14 06/21/20 Losartan Potassium 50 mg PO DAILY 03/31/14 06/21/20 Insulin Glargine,Hum.rec.anlog 30 units SQ HS 06/07/17 06/21/20 [Sofia Fajardo] Atorvastatin [Lipitor] 40 mg PO DAILY 05/24/20 06/21/20 Dulaglutide [Trulicity] 0.75 mg SQ TU 05/24/20 06/21/20 Furosemide [Lasix] 40 mg PO BID 05/24/20 06/21/20 Levothyroxine Sodium [Synthroid] 50 mcg PO DAILY 05/24/20 06/21/20 Levothyroxine Sodium [Synthroid] 200 mcg PO DAILY 05/24/20 06/21/20 Metoprolol Tartrate 75 mg PO DAILY 05/24/20 06/21/20 metOLazone 2.5 mg PO Q48H 05/24/20 06/21/20 Allergies Allergy/AdvReac Type Severity Reaction Status Date / Time No Known Allergies Allergy Verified 09/21/20 23:43 Review of Systems ROS Statement: Those systems with pertinent positive or pertinent negative responses have been documented in the HPI. ROS Other: All systems not noted in ROS Statement are negative. Past Medical History Past Medical History: Coronary Artery Disease (CAD), Heart Failure, Diabetes Mellitus, Eye Disorder, GERD/Reflux, Hearing Disorder / Deafness, Hyperli pidemia, Hypertension, Myocardial Infarction ([place]), Osteoarthritis (OA), Renal Disease, Thyroid Disorder Additional Past Medical History / Comment(s): IDDM type II, neuropathy bilateral hands/forearms/lower legs/feet, RECENT ADMISSION FOR bilateral lower leg wounds/WCC pt, bilateral leg edema, CURRENTLY LEFT LEG IS CLEAR, RT LEG STILL HAS SOME CELLULITIS WITH A DRESSING ON IT, ischemic cardiomyopathy/AICD, vtach, past medical record documents paroxysmal Afib/pt does not recall this, bilateral lower leg intermittent claudiaction/PAD, chronic renal disease stage III, anemia, bilateral tinnitis/[place], hypothyroid, arthritis bilateral hands with R hand worse, Last Myocardial Infarction Date:: 2006 History of Any Multi-Drug Resistant Organisms: None Reported Past Surgical History: Coronary Bypass/CABG, Heart Catheterization, Heart Catheterization With Stent, Pacemaker Additional Past Surgical History / Comment(s): PCI with stent 1998, 2006 CABG 3 vessel and AICD, DFTs, aortagram with runoff, colonoscopy, bilateral cataract removals/lens implants. Past Anesthesia/Blood Transfusion Reactions: No Reported Reaction Date of Last Stent Placement:: 1998 Type of Cardiac Device: Permanent Pacemaker Device Placement Date:: 2006 Past Psychological History: No Psychological Hx Reported Smoking Status: Former smoker Past Alcohol Use History: None Reported Past Drug Use History: None Reported - Past Family History Sister(s) Additional Family Medical History / Comment(s): Pt has a sister with COPD, another sister with diabetes/copd/htn and another sister with diabetes. Father Family Medical History: Myocardial Infarction ([place]) Additional Family Medical History / Comment(s): Father of a [place] at the age of 75 yrs. Brother(s) Family Medical History: Coronary Artery Disease (CAD), CVA/TIA, Diabetes Mellitus, Myocardial Infarction ([place]) Additional Family Medical History / Comment(s): One brother had a [place] at 38yrs and at age 48yrs. Another brother is alive and had a stroke. Mother Family Medical History: Diabetes Mellitus, Renal Disease Additional Family Medical History / Comment(s): Mother at age 62 from renal failure General Exam Limitations: no limitations General appearance: alert, in no apparent distress, other (Physical well- developed, well-nourished adult male patient in no acute distress. Vital signs upon presentation are temperature 102.0F, pulse 100, respirations 18, blood pressure 102/63, pulse ox 93% on room air.) Respiratory exam: Present: normal lung sounds bilaterally. Absent: respiratory distress, wheezes, rales, rhonchi, stridor Cardiovascular Exam: Present: regular rate, normal rhythm, normal heart sounds. Absent: systolic murmur, diastolic murmur, rubs, gallop, clicks GI/Abdominal exam: Present: soft, normal bowel sounds. Absent: distended, tenderness, guarding, rebound, rigid Neurological exam: Present: alert, oriented X3, CN II-XII intact Psychiatric exam: Present: normal affect, normal mood Skin exam: Present: warm, dry, intact, normal color. Absent: rash Course Vital Signs 09/21/20 09/22/20 09/22/20 23:37 01:22 02:33 Temperature 102 F H 100 F H 99.9 F H Pulse Rate 100 85 88 Respiratory 18 20 18 Rate Blood Pressure 102/63 136/60 112/52 O2 Sat by Pulse 93 L 100 97 Oximetry Medical Decision Making - Medical Decision Making 65-year-old male patient percents to the emergency department today for evaluation of fever, congestion, and cough. Physical examination did reveal clear equal lung sounds. Initially he was 93% on room air. Labs reviewed and did reveal white blood cell count at 12.2, hemoglobin 10.3, lymphocytes are low at 0.5. BUN 45, creatinine 1.78. Glucose 260. Lactic acid is 1.0. Blood cultures were obtained. He did test negative for COVID and influenza. He will be admitted for further evaluation and to further rule out COVID as it is suspected his is a false negative given fever and hypoxia without evidence for other infection source. - Lab Data Result diagrams: 09/22/20 00:21 09/22/20 00:21 Lab Results 09/22/20 09/22/20 09/22/20 Range/Units 00:21 00:21 00:21 WBC 12.2 H (3.8-10.6) k/uL RBC 3.89 L (4.30-5.90) m/uL Hgb 10.3 L (13.0-17.5) gm/dL Hct 31.1 L (39.0-53.0) % MCV 79.8 L (80.0-100.0) fL MCH 26.5 (25.0-35.0) pg MCHC 33.2 (31.0-37.0) g/dL RDW 15.1 (11.5-15.5) % Plt Count 196 (150-450) k/uL MPV 8.0 Neutrophils % 88 % Lymphocytes % 4 % Monocytes % 5 % Eosinophils % 1 % Basophils % 1 % Neutrophils # 10.8 H (1.3-7.7) k/uL Lymphocytes # 0.5 L (1.0-4.8) k/uL Monocytes # 0.6 (0-1.0) k/uL Eosinophils # 0.1 (0-0.7) k/uL Basophils # 0.1 (0-0.2) k/uL PT 11.2 (9.0-12.0) sec INR 1.1 (<1.2) APTT 24.9 (22.0-30.0) sec Sodium 134 L (137-145) mmol/L Potassium 4.3 (3.5-5.1) mmol/L Chloride 102 (98-107) mmol/L Carbon Dioxide 24 (22-30) mmol/L Anion Gap 8 mmol/L BUN 45 H (9-20) mg/dL Creatinine 1.78 H (0.66-1.25) mg/dL Est GFR (CKD-EPI)AfAm 46 (>60 ml/min/1.73 sqM) Est GFR (CKD-EPI)NonAf 40 (>60 ml/min/1.73 sqM) Glucose 260 H (74-99) mg/dL Plasma Lactic Acid Gianluca (0.7-2.0) mmol/L Calcium 8.3 L (8.4-10.2) mg/dL Total Bilirubin 0.6 (0.2-1.3) mg/dL AST 29 (17-59) U/L ALT 15 (4-49) U/L Alkaline Phosphatase 63 (38-126) U/L Total Protein 6.1 L (6.3-8.2) g/dL Albumin 3.1 L (3.5-5.0) g/dL Urine Color Urine Appearance (Clear) Urine pH (5.0-8.0) Ur Specific [place] (1.001-1.035) Urine Protein (Negative) Urine Glucose (UA) (Negative) Urine Ketones (Negative) Urine Blood (Negative) Urine Nitrite (Negative) Urine Bilirubin (Negative) Urine Urobilinogen (<2.0) mg/dL Ur Leukocyte Esterase (Negative) Urine RBC (0-5) /hpf Urine WBC (0-5) /hpf Ur Squamous Epith Cells (0-4) /hpf Urine Bacteria (None) /hpf Hyaline Casts (0-2) /lpf Granular Casts (0) /lpf Urine Mucus (None) /hpf Influenza Type A (PCR) (Not Detectd) Influenza Type B (PCR) (Not Detectd) RSV (PCR) (Not Detectd) SARS-CoV-2 (PCR) (Not Detectd) 09/22/20 09/22/20 09/22/20 Range/Units 00:21 00:21 02:30 WBC (3.8-10.6) k/uL RBC (4.30-5.90) m/uL Hgb (13.0-17.5) gm/dL Hct (39.0-53.0) % MCV (80.0-100.0) fL MCH (25.0-35.0) pg MCHC (31.0-37.0) g/dL RDW (11.5-15.5) % Plt Count (150-450) k/uL MPV Neutrophils % % Lymphocytes % % Monocytes % % Eosinophils % % Basophils % % Neutrophils # (1.3-7.7) k/uL Lymphocytes # (1.0-4.8) k/uL Monocytes # (0-1.0) k/uL Eosinophils # (0-0.7) k/uL Basophils # (0-0.2) k/uL PT (9.0-12.0) sec INR (<1.2) APTT (22.0-30.0) sec Sodium (137-145) mmol/L Potassium (3.5-5.1) mmol/L Chloride (98-107) mmol/L Carbon Dioxide (22-30) mmol/L Anion Gap mmol/L BUN (9-20) mg/dL Creatinine (0.66-1.25) mg/dL Est GFR (CKD-EPI)AfAm (>60 ml/min/1.73 sqM) Est GFR (CKD-EPI)NonAf (>60 ml/min/1.73 sqM) Glucose (74-99) mg/dL Plasma Lactic Acid Gianluca 1.0 (0.7-2.0) mmol/L Calcium (8.4-10.2) mg/dL Total Bilirubin (0.2-1.3) mg/dL AST (17-59) U/L ALT (4-49) U/L Alkaline Phosphatase (38-126) U/L Total Protein (6.3-8.2) g/dL Albumin (3.5-5.0) g/dL Urine Color Yellow Urine Appearance Cloudy (Clear) Urine pH 5.0 (5.0-8.0) Ur Specific [place] 1.018 (1.001-1.035) Urine Protein 1+ H (Negative) Urine Glucose (UA) 3+ H (Negative) Urine Ketones Trace H (Negative) Urine Blood Trace H (Negative) Urine Nitrite Negative (Negative) Urine Bilirubin Negative (Negative) Urine Urobilinogen <2.0 (<2.0) mg/dL Ur Leukocyte Esterase Negative (Negative) Urine RBC 1 (0-5) /hpf Urine WBC 1 (0-5) /hpf Ur Squamous Epith Cells <1 (0-4) /hpf Urine Bacteria Rare H (None) /hpf Hyaline Casts 6 H (0-2) /lpf Granular Casts 3 (0) /lpf Urine Mucus Rare H (None) /hpf Influenza Type A (PCR) Not Detected (Not Detectd) Influenza Type B (PCR) Not Detected (Not Detectd) RSV (PCR) Not Detected (Not Detectd) SARS-CoV-2 (PCR) Not Detected (Not Detectd) - Radiology Data Radiology results: report reviewed, image reviewed One view x-ray of the chest is obtained. Report is reviewed in its entirety. Impression by Dr. Jones shows no acute findings in the chest. Disposition Clinical Impression: Fever, Hypoxia Narrative: Rule out covid Disposition: ADMITTED IP TO THIS HOSP Condition: Serious Referrals: Johny Granado MD [Primary Care Provider] - 1-2 days Decision to Admit Reason: Admit from EC Decision Date: 09/22/20 Decision Time: 02:55
[2020-09-22 00:32] LABS: Basophils # (A) 0.1 k/uL (0-0.2); Basophils % (A) 1 %; Eosinophils # (A) 0.1 k/uL (0-0.7); Eosinophils % (A) 1 %; HCT 31.1 % (39.0-53.0); HGB 10.3 gm/dL (13.0-17.5); Lymphocytes # (A) 0.5 k/uL (1.0-4.8); Lymphocytes % (A) 4 %; MCH 26.5 pg (25.0-35.0); MCHC 33.2 g/dL (31.0-37.0); MCV 79.8 fL (80.0-100.0); Monocytes # (A) 0.6 k/uL (0-1.0); Monocytes % (A) 5 %; Neutrophils # (A) 10.8 k/uL (1.3-7.7); Neutrophils % (A) 88 %; Platelet Count 196 k/uL (150-450); RBC 3.89 m/uL (4.30-5.90); RDW 15.1 % (11.5-15.5); WBC 12.2 k/uL (3.8-10.6)
--- NOTE | 2020-09-22 00:38 | XR ---
EXAM: XR Chest, 1 View CLINICAL HISTORY: Fever TECHNIQUE: Frontal view of the chest. COMPARISON: May 25, 2020 FINDINGS: Lungs: Unremarkable. No acute infiltration, atelectasis or mass. Pleural space: Unremarkable. No pneumothorax or pleural fluid. Heart: Unremarkable. No cardiomegaly. Mediastinum: Unremarkable. Bones/joints: Previous sternotomy. Tubes, lines and devices: Stable implanted cardiac pacer. IMPRESSION: No acute findings in the chest.
[2020-09-22 00:42] LABS: Albumin 3.1 g/dL (3.5-5.0); Calcium 8.3 mg/dL (8.4-10.2); Potassium 4.3 mmol/L (3.5-5.1); Total Bilirubin 0.6 mg/dL (0.2-1.3); Total Protein 6.1 g/dL (6.3-8.2)
[2020-09-22 00:44] LABS: INR 1.1 (<1.2); Partial Thromboplastin Time 24.9 sec (22.0-30.0); Prothrombin Time 11.2 sec (9.0-12.0)
[2020-09-22] MEDS: SODIUM CHLORIDE 0.9% 500 ML 500 ML IV SCH (00:53)
[2020-09-22 02:44] LABS: Appearance,Urine Cloudy (Clear); Bacteria,Urine Rare /hpf; Bilirubin,Urine Negative (Negative); Blood,Urine Trace (Negative); Color,Urine Yellow; Glucose,Urine (UA) 3+ (Negative); Granular Casts,Urine 3 /lpf (0); Hyaline Casts,Urine 6 /lpf (0-2); Ketones,Urine Trace (Negative); Leukocyte Esterase,Urine Negative (Negative); Mucus,Urine Rare /hpf; Nitrite,Urine Negative (Negative); Protein,Urine 1+ (Negative); RBC,Urine 1 /hpf (0-5); Specific Gravity,Urine 1.018 (1.001-1.035); Squamous Epithelial Cell,Urine <1 /hpf (0-4); Urobilinogen,Urine <2.0 mg/dL (<2.0); WBC,Urine 1 /hpf (0-5)
[2020-09-22] MEDS ORDERED: ACETAMINOPHEN TAB 325 MG TAB PO PRN (02:54)
[2020-09-22] MEDS ORDERED: NALOXONE 0.4 MG/ML 1 ML VIAL IV PRN (02:54)
[2020-09-22] MEDS ORDERED: INSULIN ASPART (NovoLOG) 100 UNIT/ML VIAL SQ ONE (07:50)
[2020-09-22] MEDS ORDERED: DEXAMETHASONE SOD PHOSPHATE 10 MG/ML 1 ML VIAL IV SCH (09:00)
[2020-09-22] MEDS ORDERED: AZITHROMYCIN 500 MG in SODIUM CHLORIDE 0.9% 250 ML IVPB SCH (09:00)
[2020-09-22] MEDS: ZINC SULFATE 220 MG CAP PO SCH (09:33)
[2020-09-22] MEDS: LEVOTHYROXINE 50 MCG TAB PO SCH (09:33)
[2020-09-22] MEDS: METOPROLOL TARTRATE 25 MG TAB PO SCH (09:33)
[2020-09-22] MEDS: LOSARTAN 50 MG TAB PO SCH (09:34)
[2020-09-22] MEDS: FENOFIBRATE 160 MG TAB PO SCH (09:34)
[2020-09-22] MEDS: ATORVASTATIN 40 MG TAB PO SCH (09:34)
[2020-09-22] MEDS: LEVOTHYROXINE 100 MCG TAB PO SCH (09:34)
[2020-09-22] MEDS: FUROSEMIDE 20 MG TAB PO SCH (09:34)
[2020-09-22] MEDS: INSULIN ASPART (NovoLOG) 100 UNIT/ML VIAL SQ SCH ×2 (12:43→17:33)
--- NOTE | 2020-09-22 14:42 | P.CNPUL ---
History of Present Illness Consult date: 09/22/20 Reason for consult: dyspnea, cough Chief complaint: Shortness of breath History of present illness: This is a pleasant 65-year-old male came into the hospital with ongoing fever, it appears that patient started fever about a day ago also has upper respiratory symptoms, has occasional cough, denies any chest pain shortness of breath, denies any loss of taste or smell, there is no history of sick contact, pharmacist medical history is significant for diabetes mellitus hypertension hypertensive cardiovascular disease dyslipidemia hypothyroidism and congestive heart failure, on arrival he has a fever of 102, however came down to 99, abscess significant for mild leukocytosis and microcytic anemia, acute kidney injury with BUN of 45 creatinine 1.78 also noted glucose 260, LDH is 769 with C- reactive protein was 161, iron panel including a and B as well as covert 19 is negative, his chest x-ray did not show any acute finding, computed tomography scan of the chest is pending, and the patient is being treated with IV antibiotics along with dexamethasone, his oxygen saturation is stable 98% Review of Systems All systems: negative Past Medical History Past Medical History: Coronary Artery Disease (CAD), Heart Failure, Diabetes Mellitus, Eye Disorder, GERD/Reflux, Hearing Disorder / Deafness, Hyperlipidemia, Hypertension, Myocardial Infarction ([place]), Osteoarthritis ([place]), Renal Disease, Thyroid Disorder Additional Past Medical History / Comment(s): IDDM type II, neuropathy bilateral hands/forearms/lower legs/feet, RECENT ADMISSION FOR bilateral lower leg wounds/WCC pt, bilateral leg edema, CURRENTLY LEFT LEG IS CLEAR, RT LEG STILL HAS SOME CELLULITIS WITH A DRESSING ON IT, ischemic cardiomyopathy/AICD, vtach, past medical record documents paroxysmal Afib/pt does not recall this, bilateral lower leg intermittent claudiaction/PAD, chronic renal disease stage III, anemia, bilateral tinnitis/[place], hypothyroid, arthritis bilateral hands with R hand worse, Last Myocardial Infarction Date:: 2006 History of Any Multi-Drug Resistant Organisms: None Reported Past Surgical History: Coronary Bypass/CABG, Heart Catheterization, Heart Catheterization With Stent, Pacemaker Additional Past Surgical History / Comment(s): PCI with stent 1998, 2006 CABG 3 vessel and AICD, DFTs, aortagram with runoff, colonoscopy, bilateral cataract removals/lens implants. Past Anesthesia/Blood Transfusion Reactions: No Reported Reaction Date of Last Stent Placement:: 1998 Type of Cardiac Device: Permanent Pacemaker Device Placement Date:: 2006 Past Psychological History: No Psychological Hx Reported Additional Psychological History / Comment(s): Pt resides with his spouse. He uses a cane or walker to ambulate. He drives. Smoking Status: Former smoker Past Alcohol Use History: None Reported Additional Past Alcohol Use History / Comment(s): STARTED SMOKING AT AGE 17 QUIT 2006 SMOKED 1 1/2 PPD Past Drug Use History: None Reported - Past Family History Sister(s) Additional Family Medical History / Comment(s): Pt has a sister with COPD, another sister with diabetes/copd/htn and another sister with diabetes. Father Family Medical History: Myocardial Infarction ([place]) Additional Family Medical History / Comment(s): Father of a [place] at the age of 75 yrs. Brother(s) Family Medical History: Coronary Artery Disease (CAD), CVA/TIA, Diabetes Mellitus, Myocardial Infarction ([place]) Additional Family Medical History / Comment(s): One brother had a [place] at 38yrs and at age 48yrs. Another brother is alive and had a stroke. Mother Family Medical History: Diabetes Mellitus, Renal Disease Additional Family Medical History / Comment(s): Mother at age 62 from renal failure Medications and Allergies Home Medications Medication Instructions Recorded Confirmed Type Fenofibrate 160 mg PO DAILY 03/31/14 09/22/20 History Insulin Lispro [humaLOG Kwikpen] 8 - 10 units SQ ACHS PRN 03/31/14 09/22/20 History Losartan Potassium 50 mg PO DAILY 03/31/14 09/22/20 History Insulin Glargine,Hum.rec.anlog 30 units SQ HS 06/07/17 09/22/20 History [Toujeo Solostar] Atorvastatin [Lipitor] 40 mg PO DAILY 05/24/20 09/22/20 History Dulaglutide [Trulicity] 0.75 mg SQ TU 05/24/20 09/22/20 History Levothyroxine Sodium [Synthroid] 50 mcg PO DAILY 05/24/20 09/22/20 History Levothyroxine Sodium [Synthroid] 200 mcg PO DAILY 05/24/20 09/22/20 History Metoprolol Tartrate 75 mg PO DAILY 05/24/20 09/22/20 History Furosemide [Lasix] 40 mg PO BID 09/22/20 09/22/20 History Allergies Allergy/AdvReac Type Severity Reaction Status Date / Time No Known Allergies Allergy Verified 09/22/20 08:49 Physical Exam Vitals: Vital Signs Temp Pulse Pulse Resp BP BP Pulse Ox 09/22/20 11:00 97.4 F L 66 17 114/66 98 09/22/20 03:51 100 F H 92 18 146/76 100 09/22/20 02:33 99.9 F H 88 18 112/52 97 09/22/20 01:22 100 F H 85 20 136/60 100 09/21/20 23:37 102 F H 100 18 102/63 93 L Intake and Output 09/21/20 09/22/20 09/22/20 22:59 06:59 14:59 Intake Total 220 Balance 220 Intake: Oral 220 Other: # Voids 2 1 Weight 86.636 kg - Constitutional General appearance: average body habitus, disheveled - EENT Eyes: EOMI, PERRLA Ears: bilateral: normal - Neck Carotids: bilateral: upstroke normal - Respiratory Respiratory: bilateral: CTA - Cardiovascular Rhythm: regular Heart sounds: normal: S1, S2 - Gastrointestinal General gastrointestinal: normal bowel sounds - Neurologic Neurologic: CNII-XII intact - Musculoskeletal Musculoskeletal: gait normal, generalized weakness, strength equal bilaterally - Psychiatric Psychiatric: A&O x's 3, appropriate affect, intact judgment & insight Results - Laboratory Findings CBC and BMP: 09/22/20 00:21 09/22/20 00:21 PT/INR, D-dimer PT 11.2 sec (9.0-12.0) 09/22/20 00:21 INR 1.1 (<1.2) 09/22/20 00:21 Abnormal lab findings: Abnormal Labs 09/22/20 09/22/20 09/22/20 00:21 00:21 02:30 WBC 12.2 H RBC 3.89 L Hgb 10.3 L Hct 31.1 L MCV 79.8 L Neutrophils # 10.8 H Lymphocytes # 0.5 L Sodium 134 L BUN 45 H Creatinine 1.78 H Glucose 260 H Calcium 8.3 L Lactate Dehydrogenase C-Reactive Protein Total Protein 6.1 L Albumin 3.1 L Urine Protein 1+ H Urine Glucose (UA) 3+ H Urine Ketones Trace H Urine Blood Trace H Urine Bacteria Rare H Hyaline Casts 6 H Urine Mucus Rare H 09/22/20 08:47 WBC RBC Hgb Hct MCV Neutrophils # Lymphocytes # Sodium BUN Creatinine Glucose Calcium Lactate Dehydrogenase 769 H C-Reactive Protein 161.0 H Total Protein Albumin Urine Protein Urine Glucose (UA) Urine Ketones Urine Blood Urine Bacteria Hyaline Casts Urine Mucus - Diagnostic Findings Chest x-ray: report reviewed, image reviewed Assessment and Plan Assessment: Febrile illness likely upper respiratory however Covid 19 infection cannot be excluded, agree with broad-spectrum antibiotics Decadron will follow up on computed tomography scan of the chest Plan: As noted above Time with Patient: Greater than 30
[2020-09-22] MEDS ORDERED: INSULIN REGULAR 100 UNIT in SODIUM CHLORIDE 0.9% 100 ML IV SCH (20:45)
[2020-09-22] MEDS ORDERED: INSULIN DETEMIR (LEVEMIR) 100 UNIT/ML SYR SQ SCH (21:00)
--- NOTE | 2020-09-22 21:57 | CONS ---
CONSULTATION DATE OF SERVICE: 09/22/2020 REASON FOR CONSULTATION: Fever. HISTORY OF PRESENT ILLNESS: The patient is a 65-year-old male with a past medical history significant for lower extremity wound and previous episode of cellulitis in this patient who follows at [facility]. The patient presented to the ER early this afternoon with concern about fever. The patient before presentation to the hospital. The patient did have mild URI symptoms but denies having any chest pain, shortness of breath or cough. Denies having any nausea. No vomiting, abdominal pain or diarrhea. The patient apparently has bilateral lower extremity wounds which were dressed in the wound care center on Saturday and apparently there was no concern about any wound infection. Patient on presentation to the hospital did have a fever of 102 degrees Fahrenheit. The patient did have mild tachycardia. The patient has been saturating 93% on room air, currently 99% on 2 L nasal cannula. The patient did have a white count of 12.2 with mild lymphopenia but left shift. Creatinine was elevated at 1.78. Liver enzymes were normal. CRP and LDH were elevated. Urine is negative. Subsequently influenza and albarado PCR came back negative. The patient did have a chest x-ray that has been reported negative for any acute infiltrate. The patient was started on Rocephin and Zithromax. Infectious Disease was consulted for further management of fever and need for antibiotic therapy. REVIEW OF SYSTEMS: Positive points have been mentioned in the HPI. Rest of the systems are negative. PAST MEDICAL HISTORY: Coronary artery disease, heart failure, diabetes mellitus, gastroesophageal reflux disease, hyperlipidemia, hypertension, NV. PAST SURGICAL HISTORY: Coronary artery bypass grafting, heart catheterization with stenting and pacemaker. SOCIAL HISTORY: Remote history of smoking. No drinking or drug use. FAMILY HISTORY: Sister with COPD. Father with history of NV. ALLERGIES: NO KNOWN DRUG ALLERGIES. MEDICATIONS: The patient is currently on Tylenol, Lipitor, Rocephin 1 gram q.12 Zithromax, Decadron, Lasix, Levemir, Synthroid, Cozaar, Narcan, zinc. PHYSICAL EXAMINATION: Blood pressure 121/63 with a pulse of 72, temperature 98.4. He is 99% on 2 L nasal cannula. General description is an elderly male up in the bed in no distress. No tachypnea or accessory muscle of respiration use. HEENT: Examination shows no pallor or scleral icterus. Oral mucous membrane is dry. No pharyngeal erythema or thrush. NECK: Trachea is central. No thyromegaly. LUNGS: Unlabored breathing. Clear to auscultation anteriorly. No wheeze or crackle. HEART: S1, S2. Regular rate and rhythm. ABDOMEN: Soft. No tenderness. No guarding or rigidity. Extremities are currently wrapped up. No obvious drainage on the dressing. NEUROLOGICAL: The patient is awake, alert, oriented x3. Mood and affect normal. LABS: Hemoglobin is 10.3, white count 12.2, BUN of 45, creatinine 1.78. Liver enzymes are normal. Urine is negative. Influenza PCR has been negative. DIAGNOSTIC IMPRESSION AND PLAN: Patient admitted to hospital with fever in this patient with high clinical suspicion for lower extremity wound with cellulitis, clinically not behaving as COVID-19 infection, and this patient does not have any respiratory symptoms. Chest x-ray was negative for any acute infiltrate. The patient did have leukocytosis, more common with bacterial infection than the viral infection. PLAN: 1. We will discontinue Rocephin, Zithromax and Decadron. 2. Will start the patient on cefazolin 2 grams q.8 hours. 3. We will follow his clinical condition and further adjust medication if needed. 4. Thank you for this consultation. Will follow this patient along with you. BELEN / SUZIE: [id number] /
--- NOTE | 2020-09-22 21:59 | CT ---
EXAM: CT Chest Without Intravenous Contrast CLINICAL HISTORY: Shortness of breath TECHNIQUE: Axial computed tomography images of the chest without intravenous contrast. CTDI is 10.8 mGy and DLP is 409.8 mGy-cm. This CT exam was performed using one or more of the following dose reduction techniques: automated exposure control, adjustment of the mA and/or kV according to patient size, and/or use of iterative reconstruction technique. COMPARISON: Chest x-ray from September 22, 2020 at 0027 hours FINDINGS: Lungs: Unremarkable. No mass. No consolidation. Pleural space: Unremarkable. No pneumothorax. No significant effusion. Heart: The heart is mildly enlarged. Severe coronary calcification is present. There are signs of previous CABG. No pericardial effusion is seen. Bones/joints: Mild multilevel degenerative changes are seen throughout the thoracic spine. No fracture or bone lesion is identified. No dislocation. Soft tissues: Unremarkable. Vasculature: The thoracic aorta is mildly calcified but nondilated. Lymph nodes: Unremarkable. No enlarged lymph nodes. Gallbladder and bile ducts: Limited images of the upper abdomen demonstrate a 1 cm calcified gallstone in the dependent portion of the nondilated gallbladder. No pericholecystic inflammation or biliary duct dilation is seen. Tubes, lines and devices: There is a pacing device on the left with leads running to the heart. IMPRESSION: Previous CABG and his reimplantation with cardiomegaly and severe coronary calcification. No pericardial effusion. The lungs are well inflated and clear. No infiltrate or consolidation is seen. Cholelithiasis without dilated gallbladder or visible surrounding inflammation.
[2020-09-23 04:59] VITALS: BP 112/42; PULSE 82; RESP 16; TEMP 99.2
[2020-09-23] MEDS: LEVOTHYROXINE 100 MCG TAB PO SCH (05:20)
[2020-09-23] MEDS: LEVOTHYROXINE 50 MCG TAB PO SCH (05:20)
[2020-09-23 06:19] LABS: Basophils % (A) 0 %; Eosinophils % (A) 0 %; HCT 26.5 % (39.0-53.0); HGB 9.2 gm/dL (13.0-17.5); Lymphocytes # (A) 0.9 k/uL (1.0-4.8); Lymphocytes % (A) 7 %; MCH 27.8 pg (25.0-35.0); MCHC 34.8 g/dL (31.0-37.0); MCV 79.9 fL (80.0-100.0); Mean Platelet Volume 8.2; Monocytes # (A) 0.9 k/uL (0-1.0); Monocytes % (A) 7 %; Neutrophils % (A) 85 %; Platelet Count 174 k/uL (150-450); RBC 3.32 m/uL (4.30-5.90); RDW 14.8 % (11.5-15.5)
[2020-09-23] MEDS: METOPROLOL TARTRATE 25 MG TAB PO SCH (09:09)
[2020-09-23] MEDS: FUROSEMIDE 20 MG TAB PO SCH (09:09)
[2020-09-23] MEDS: LOSARTAN 50 MG TAB PO SCH (09:09)
[2020-09-23] MEDS: ATORVASTATIN 40 MG TAB PO SCH (09:09)
[2020-09-23] MEDS: ZINC SULFATE 220 MG CAP PO SCH (09:09)
[2020-09-23] MEDS: FENOFIBRATE 160 MG TAB PO SCH (09:10)
[2020-09-23 10:56] LABS: African American GFR (CKD) 39.7 (60.0-200.0); Anion Gap 9.4 mmol/L (4.00-12.00); BUN/Creat Ratio 28.5 Ratio (12.00-20.00); C Reactive Protein 18.7 mg/dL (0.0-0.8); Carbon Dioxide 23.6 mmol/L (21.6-31.8); Non-African American GFR(CKD) 34.3 (60.0-200.0)
[2020-09-23 20:24] LABS: Hemoglobin A1C 8.8 % (4.0-6.0)
[2020-09-29 05:24] LABS: Glucose,Whole Blood 157 mg/dL (75-99)
[2020-09-29 05:24] LABS: Glucose,Whole Blood 130 mg/dL (75-99)
[2020-09-29 05:24] LABS: Glucose,Whole Blood 171 mg/dL (75-99)
[2020-09-29 05:24] LABS: Glucose,Whole Blood 165 mg/dL (75-99)
[2020-09-29 05:24] LABS: Glucose,Whole Blood 96 mg/dL (75-99)
[2020-09-29 05:41] LABS: Glucose,Whole Blood 471 mg/dL (75-99)
[2020-09-29 05:41] LABS: Glucose,Whole Blood 427 mg/dL (75-99)
[2020-09-29 05:41] LABS: Glucose,Whole Blood 520 mg/dL (75-99)
[2020-09-29 05:41] LABS: Glucose,Whole Blood 282 mg/dL (75-99)
[2020-09-29 05:41] LABS: Glucose,Whole Blood 263 mg/dL (75-99)
[2020-09-29 05:41] LABS: Glucose,Whole Blood 281 mg/dL (75-99)
[2020-09-29 05:41] LABS: Glucose,Whole Blood 422 mg/dL (75-99)
[2020-09-29 05:41] LABS: Glucose,Whole Blood 227 mg/dL (75-99)
[2020-09-29 05:41] LABS: Glucose,Whole Blood 300 mg/dL (75-99)
== END 2020-09-23 12:17 | disposition home or self-care (01) | DRG 603 ==
LOC: EC 23:28 → 6NMEDSUR 09-22 02:52
PROVIDERS: ADMIT Family Medicine; ATTEND Family Medicine
DX: L03.116 Cellulitis of left lower limb (principal); D72.810 Lymphocytopenia; Z20.828 Contact with and (suspected) exposure to other viral communicable diseases; Z96.1 Presence of intraocular lens; I48.0 Paroxysmal atrial fibrillation; I25.5 Ischemic cardiomyopathy; I25.10 Atherosclerotic heart disease of native coronary artery without angina pectoris; I11.0 Hypertensive heart disease with heart failure; H91.90 Unspecified hearing loss, unspecified ear; E78.5 Hyperlipidemia, unspecified; E11.9 Type 2 diabetes mellitus without complications; K21.9 Gastro-esophageal reflux disease without esophagitis; I50.9 Heart failure, unspecified; Z95.5 Presence of coronary angioplasty implant and graft; Z95.1 Presence of aortocoronary bypass graft; Z87.891 Personal history of nicotine dependence; Z98.42 Cataract extraction status, left eye; Z98.41 Cataract extraction status, right eye; I25.2 Old myocardial infarction; Z83.3 Family history of diabetes mellitus; Z82.5 Family history of asthma and other chronic lower respiratory diseases; Z82.49 Family history of ischemic heart disease and other diseases of the circulatory system; Z82.3 Family history of stroke; Z79.899 Other long term (current) drug therapy; Z79.890 Hormone replacement therapy; Z79.4 Long term (current) use of insulin
CPT/HCPCS: 36415; 71045; 71250; 80048; 80053; 81001; 83036; 83605; 83615; 84145; 85025; 85610; 85730; 86140; 87040; 87636; 93005; 96360; 96361; 99285

== ENCOUNTER 2020-12-06 07:11 | Inpatient (IN) | payer MEDICARE ==
[2020-12-06] MEDS ORDERED: SODIUM CHLORIDE 0.9% 500 ML 500 ML IV STA (07:38)
--- NOTE | 2020-12-06 08:14 | ED ---
General Adult HPI - General Chief complaint: Fever Stated complaint: High blood sugar/dehydration Time Seen by Provider: 12/06/20 07:24 Source: family, RN notes reviewed Mode of arrival: wheelchair Limitations: no limitations - History of Present Illness Initial comments: 65-year-old male with a past medical history of IDDM type II, neuropathy, bilat leg wounds, PAD, chronic renal disease presents to the emergency room for a chief complaint of high blood sugar and fever. Patient reports that his sugars have been high for the past several days. States that yesterday, and her just read "high." Patient has been using his insulin as directed. Patient states he also had a fever of 101.7 last night. He states that it has since resolved however he was supposed to have a pacemaker replaced today and his doctor told him he should come in and be evaluated instead. Patient denies cough congestion sore throat. Patient does have wounds on his lower extremities and recently was admitted for bilateral lower extremity cellulitis. States that these are healing and Dr. Ross did not feel they were infected one week ago. Patient states his legs have been red since and there are knots was to be unwrapped until 2 days from now so has not been able to evaluate them.Patient has no other complaints at this time including shortness of breath, chest pain, abdominal pain, nausea or vomiting, headache, or visual changes. - Related Data Home Medications Medication Instructions Recorded Confirmed Fenofibrate 160 mg PO DAILY 03/31/14 12/06/20 Insulin Lispro [humaLOG Kwikpen] See Protocol SQ ACHS PRN 03/31/14 12/06/20 Losartan Potassium 50 mg PO DAILY 03/31/14 12/06/20 Atorvastatin [Lipitor] 40 mg PO DAILY 05/24/20 12/06/20 Levothyroxine Sodium [Synthroid] 50 mcg PO DAILY 05/24/20 12/06/20 Levothyroxine Sodium [Synthroid] 200 mcg PO DAILY 05/24/20 12/06/20 Metoprolol Tartrate 75 mg PO DAILY 05/24/20 12/06/20 Dulaglutide [Trulicity] 3 mg SQ HENRY 11/30/20 12/06/20 Furosemide [Lasix] 20 mg PO DAILY 11/30/20 12/06/20 Insulin Glargine,Hum.rec.anlog 35 units SQ DAILY 11/30/20 12/06/20 [Toujeo Solostar] Acetaminophen Tab [Tylenol Tab] 1,000 mg PO Q6HR PRN 12/06/20 12/06/20 Allergies Allergy/AdvReac Type Severity Reaction Status Date / Time No Known Allergies Allergy Verified 12/06/20 08:56 Review of Systems ROS Statement: Those systems with pertinent positive or pertinent negative responses have been documented in the HPI. ROS Other: All systems not noted in ROS Statement are negative. Past Medical History Past Medical History: Diabetes Mellitus Additional Past Medical History / Comment(s): IDDM type II, neuropathy bilateral hands/forearms/lower legs/feet, RECENT ADMISSION FOR bilateral lower leg wounds/WCC pt, bilateral leg edema, CURRENTLY LEFT LEG IS CLEAR, RT LEG STILL HAS SOME CELLULITIS WITH A DRESSING ON IT, ischemic cardiomyopathy/AICD, vtach, past medical record documents paroxysmal Afib/pt does not recall this, bilateral lower leg intermittent claudiaction/PAD, chronic renal disease stage III, anemia, bilateral tinnitis/[place], hypothyroid, arthritis bilateral hands with R hand worse, Last Myocardial Infarction Date:: 2006 History of Any Multi-Drug Resistant Organisms: None Reported Past Surgical History: Coronary Bypass/CABG, Heart Catheterization, Heart Catheterization With Stent, Pacemaker Additional Past Surgical History / Comment(s): PCI with stent 1998, 2006 CABG 3 vessel and AICD, DFTs, aortagram with runoff, colonoscopy, bilateral cataract removals/lens implants. Past Anesthesia/Blood Transfusion Reactions: No Reported Reaction Date of Last Stent Placement:: 1998 Type of Cardiac Device: Permanent Pacemaker Device Placement Date:: 2006 Past Psychological History: No Psychological Hx Reported Smoking Status: Never smoker Past Alcohol Use History: None Reported Past Drug Use History: None Reported - Past Family History Sister(s) Additional Family Medical History / Comment(s): Pt has a sister with COPD, another sister with diabetes/copd/htn and another sister with diabetes. Father Family Medical History: Myocardial Infarction (CT) Additional Family Medical History / Comment(s): Father of a CT at the age of 75 yrs. Brother(s) Family Medical History: Coronary Artery Disease (CAD), CVA/TIA, Diabetes Mellitus, Myocardial Infarction (CT) Additional Family Medical History / Comment(s): One brother had a CT at 38yrs and at age 48yrs. Another brother is alive and had a stroke. Mother Family Medical History: Diabetes Mellitus, Renal Disease Additional Family Medical History / Comment(s): Mother at age 62 from renal failure General Exam Limitations: no limitations General appearance: alert, in no apparent distress Head exam: Present: atraumatic, normocephalic, normal inspection Eye exam: Present: normal appearance, PERRL, EOMI. Absent: scleral icterus, conjunctival injection, periorbital swelling ENT exam: Present: normal exam, mucous membranes moist Neck exam: Present: normal inspection, full ROM. Absent: tenderness, meningismus, lymphadenopathy Respiratory exam: Present: normal lung sounds bilaterally. Absent: respiratory distress, wheezes, rales, rhonchi, stridor Cardiovascular Exam: Present: regular rate, normal rhythm, normal heart sounds. Absent: systolic murmur, diastolic murmur, rubs, gallop, clicks GI/Abdominal exam: Present: soft, normal bowel sounds. Absent: distended, tenderness, guarding, rebound, rigid Extremities exam: Present: normal capillary refill (Capillary refill less than 2 seconds of the bilateral lower extremities), other (Patient has open wounds on several aspects of the bilateral lower extremities. There is erythema and increased warmth consistent with cellulitis of the dorsal aspect of the left fo ot. Do not appreciate cellulitis of the right foot however there are chronic wounds.) Course Vital Signs 12/06/20 12/06/20 12/06/20 07:12 08:15 09:15 Temperature 98.0 F Pulse Rate 78 81 Respiratory 18 18 18 Rate Blood Pressure 120/62 144/67 O2 Sat by Pulse 97 100 Oximetry Medical Decision Making - Medical Decision Making Vitals are stable. Patient afebrile here in the emergency room. He does have erythema to the left forefoot especially consistent with a cellulitis. Not clinically suspect necrotizing fasciitis, no significant pain, no hemorrhagic bullae. No spreading streaking redness up the leg. No significant edema. Symptoms of infection of an chronically on and off for months. CBC does reveal to give Leukocytosis with a white blood cell count of 21.9. Thermal cytosis noted as well. Patient does have chronic anemia. CMP does reveal chronic kidney disease. Glucose is 293. Acetone positive however anion gap is 9. Patient was started on broad-spectrum antibiotics given concern for cellulitis. No gas on foot x-ray. Chest x-ray does show bilateral opacities. He does not have any upper history symptoms and COVID is negative. I did speak with Dr. Granado who is in agreement with care plan of admitting for broad spectrum IV abx. recommends consult to infectious disease. He will put in any further consult as needed. - Lab Data Result diagrams: 12/06/20 08:08 12/06/20 08:08 Lab Results 12/06/20 12/06/20 12/06/20 Range/Units 08:08 08:08 08:08 WBC 21.9 H (3.8-10.6) k/uL RBC 3.43 L (4.30-5.90) m/uL Hgb 8.4 L (13.0-17.5) gm/dL Hct 26.6 L (39.0-53.0) % MCV 77.5 L (80.0-100.0) fL MCH 24.5 L (25.0-35.0) pg MCHC 31.6 (31.0-37.0) g/dL RDW 14.3 (11.5-15.5) % Plt Count 456 H (150-450) k/uL MPV 8.8 Neutrophils % 90 % Lymphocytes % 5 % Monocytes % 4 % Eosinophils % 1 % Basophils % 0 % Neutrophils # 19.7 H (1.3-7.7) k/uL Lymphocytes # 1.0 (1.0-4.8) k/uL Monocytes # 0.9 (0-1.0) k/uL Eosinophils # 0.2 (0-0.7) k/uL Basophils # 0.0 (0-0.2) k/uL Hypochromasia Slight Sodium 130 L (137-145) mmol/L Potassium 4.1 (3.5-5.1) mmol/L Chloride 94 L (98-107) mmol/L Carbon Dioxide 27 (22-30) mmol/L Anion Gap 9 mmol/L BUN 53 H (9-20) mg/dL Creatinine 1.95 H (0.66-1.25) mg/dL Est GFR (CKD-EPI)AfAm 41 (>60 ml/min/1.73 sqM) Est GFR (CKD-EPI)NonAf 35 (>60 ml/min/1.73 sqM) Glucose 293 H (74-99) mg/dL Plasma Lactic Acid Gianluca 1.2 (0.7-2.0) mmol/L Calcium 8.5 (8.4-10.2) mg/dL Total Bilirubin 1.1 (0.2-1.3) mg/dL AST 38 (17-59) U/L ALT 24 (4-49) U/L Alkaline Phosphatase 227 H (38-126) U/L C-Reactive Protein 328.9 H (<10.0) mg/L Total Protein 6.0 L (6.3-8.2) g/dL Albumin 2.6 L (3.5-5.0) g/dL Acetone, Qual Positive (Negative) Coronavirus (PCR) (Not Detectd) 12/06/20 Range/Units 08:20 WBC (3.8-10.6) k/uL RBC (4.30-5.90) m/uL Hgb (13.0-17.5) gm/dL Hct (39.0-53.0) % MCV (80.0-100.0) fL MCH (25.0-35.0) pg MCHC (31.0-37.0) g/dL RDW (11.5-15.5) % Plt Count (150-450) k/uL MPV Neutrophils % % Lymphocytes % % Monocytes % % Eosinophils % % Basophils % % Neutrophils # (1.3-7.7) k/uL Lymphocytes # (1.0-4.8) k/uL Monocytes # (0-1.0) k/uL Eosinophils # (0-0.7) k/uL Basophils # (0-0.2) k/uL Hypochromasia Sodium (137-145) mmol/L Potassium (3.5-5.1) mmol/L Chloride (98-107) mmol/L Carbon Dioxide (22-30) mmol/L Anion Gap mmol/L BUN (9-20) mg/dL Creatinine (0.66-1.25) mg/dL Est GFR (CKD-EPI)AfAm (>60 ml/min/1.73 sqM) Est GFR (CKD-EPI)NonAf (>60 ml/min/1.73 sqM) Glucose (74-99) mg/dL Plasma Lactic Acid Gianluca (0.7-2.0) mmol/L Calcium (8.4-10.2) mg/dL Total Bilirubin (0.2-1.3) mg/dL AST (17-59) U/L ALT (4-49) U/L Alkaline Phosphatase (38-126) U/L C-Reactive Protein (<10.0) mg/L Total Protein (6.3-8.2) g/dL Albumin (3.5-5.0) g/dL Acetone, Qual (Negative) Coronavirus (PCR) Not Detected (Not Detectd) Disposition Clinical Impression: Cellulitis, Leukocytosis, Chronic anemia Disposition: ADMITTED IP TO THIS HOSP Is patient prescribed a controlled substance at d/c from ED?: No Referrals: Johny Granado MD [Primary Care Provider] - 1-2 days Time of Disposition: 09:31
[2020-12-06 08:30] LABS: Basophils % (A) 0 %; Eosinophils # (A) 0.2 k/uL (0-0.7); Eosinophils % (A) 1 %; HCT 26.6 % (39.0-53.0); HGB 8.4 gm/dL (13.0-17.5); Hypochromasia Slight; Lymphocytes % (A) 5 %; MCH 24.5 pg (25.0-35.0); MCHC 31.6 g/dL (31.0-37.0); MCV 77.5 fL (80.0-100.0); Mean Platelet Volume 8.8; Monocytes # (A) 0.9 k/uL (0-1.0); Monocytes % (A) 4 %; Neutrophils # (A) 19.7 k/uL (1.3-7.7); Neutrophils % (A) 90 %; Platelet Count 456 k/uL (150-450); RBC 3.43 m/uL (4.30-5.90); RDW 14.3 % (11.5-15.5); WBC 21.9 k/uL (3.8-10.6)
[2020-12-06 08:35] LABS: ALT 24 U/L (4-49); AST 38 U/L (17-59); African American GFR (CKD) 41 (>60 ml/min/1.73 sqM); Albumin 2.6 g/dL (3.5-5.0); Alkaline Phosphatase 227 U/L (38-126); Anion Gap 9 mmol/L; Blood Urea Nitrogen 53 mg/dL (9-20); Calcium 8.5 mg/dL (8.4-10.2); Carbon Dioxide 27 mmol/L (22-30); Chloride 94 mmol/L (98-107); Glucose 293 mg/dL (74-99); Non-African American GFR(CKD) 35 (>60 ml/min/1.73 sqM); Potassium 4.1 mmol/L (3.5-5.1); Sodium 130 mmol/L (137-145); Total Bilirubin 1.1 mg/dL (0.2-1.3)
--- NOTE | 2020-12-06 08:50 | XR ---
EXAMINATION TYPE: XR foot complete LT DATE OF EXAM: 12/06/2020 CLINICAL HISTORY: Cellulitis, open wounds. TECHNIQUE: Frontal, lateral, and oblique images of the left foot are obtained. COMPARISON: None FINDINGS: Mild to moderate diffuse subcutaneous edema with moderate to severe diffuse soft tissue swe lling. Large inferior calcaneal spur. Sclerosis and deformity of the navicular bone. Moderate to carter re narrowing and subchondral cystic change at the Lisfranc joints. No suspicious bony destruction or abnormal periosteal reaction to suggest acute osteomyelitis. Significant arterial vascular calcificat ion. IMPRESSION: As above. Charcot-type arthropathy suspected, correlate clinically.
--- NOTE | 2020-12-06 08:52 | XR ---
EXAMINATION TYPE: XR chest 2V DATE OF EXAM: 12/06/2020 COMPARISON: Chest x-ray and CT chest September 22, 2020 HISTORY: Fever. TECHNIQUE: Frontal and lateral views of the chest are obtained. FINDINGS: There is persisting cardiomegaly with small to the pacemaker/defibrillator. Overlying st ernal wires and mediastinal clips are redemonstrated. The osseous structures are intact. New faint Mu ltifocal bilateral opacities on current study. No pleural effusion or pneumothorax seen. IMPRESSION: New faint multifocal bilateral opacities, correlate to exclude covid-19 infection.
[2020-12-06 09:09] LABS: C Reactive Protein 328.9 mg/L (<10.0)
[2020-12-06] MEDS ORDERED: PIPERACILLIN-TAZOBACTAM 3.375 GM in SODIUM CHLORIDE 0.9% 100 ML IVPB STA (09:22)
[2020-12-06] MEDS ORDERED: VANCOMYCIN IV PER PHARMACY 1 EACH MISC MISCELLANE PRN (09:22)
[2020-12-06] MEDS ORDERED: NALOXONE 0.4 MG/ML 1 ML VIAL IV PRN (09:31)
[2020-12-06] MEDS ORDERED: HYDROcodone/APAP 5-325MG 1 EACH TAB PO PRN (09:31)
[2020-12-06] MEDS ORDERED: ACETAMINOPHEN TAB 325 MG TAB PO PRN (09:31)
[2020-12-06] MEDS ORDERED: MORPHINE SULFATE 2 MG/ML SYRINGE IVP PRN (09:35)
[2020-12-06 09:46] LABS: Appearance,Urine Cloudy (Clear); Bilirubin,Urine Negative (Negative); Blood,Urine Trace (Negative); Color,Urine Yellow; Glucose,Urine (UA) 4+ (Negative); Hyaline Casts,Urine 1 /lpf (0-2); Ketones,Urine Negative (Negative); Leukocyte Esterase,Urine Negative (Negative); Mucus,Urine Rare /hpf; Nitrite,Urine Negative (Negative); PH, Urine 5.5 (5.0-8.0); Protein,Urine 1+ (Negative); RBC,Urine <1 /hpf (0-5); Specific Gravity,Urine 1.015 (1.001-1.035); Squamous Epithelial Cell,Urine <1 /hpf (0-4); WBC,Urine 1 /hpf (0-5)
[2020-12-06] MEDS ORDERED: VANCOMYCIN 1,750 MG in SODIUM CHLORIDE 0.9% 500 ML 500 ML IVPB ONE (10:00)
[2020-12-06] MEDS: SODIUM CHLORIDE 0.9% 1,000 ML IV SCH (10:32)
[2020-12-06 14:44] LABS: Glucose,Whole Blood 289 mg/dL (75-99)
[2020-12-06] MEDS: INSULIN ASPART (NovoLOG) 100 UNIT/ML VIAL SQ SCH ×3 (14:47→22:23)
[2020-12-06] MEDS ORDERED: PIPERACILLIN-TAZOBACTAM 3.375 GM in SODIUM CHLORIDE 0.9% 100 ML IVPB SCH (16:00)
[2020-12-06] MEDS: ACETAMINOPHEN TAB 500 MG TAB PO PRN (17:28)
--- NOTE | 2020-12-06 18:12 | HP ---
HISTORY AND PHYSICAL This patient is a 65-year-old white male with type 2 diabetes, neuropathy, bilateral leg wounds and possible Charcot foot, PID, chronic renal disease, elevated blood sugar, fevers, elevated white count, high fevers. He has been treated by a vascular doctor for some vascular wounds in his legs. Due to elevated white count and worsening redness of the leg and a deep fever of 101.7, he was admitted to the hospital. He is supposed to have a pacemaker evaluated. Doctor told him to come to the emergency room instead due to the fever. He is being treated for bilateral lower extremity cellulitis and possible pneumonia. Dr. Bustamante is consulted. HOME MEDICINES: 1. Benefiber 160 daily. 2. Accu-Chek protocol. 3. Losartan 50 daily. 4. Lipitor 40 daily. 5. Synthroid 250 mcg daily. 6. Metoprolol tartrate 75 mg daily. 7. Trulicity 3 mg subcutaneously weekly. 8. Lasix 20 mg daily. 9. Toujeo 35 units subcutaneously daily. 10.Tylenol 1000 q.6 p.r.n. ALLERGIES: NO KNOWN DRUG ALLERGIES. REVIEW OF SYSTEMS: Fourteen-point review of systems negative except for mentioned in HPI. PAST MEDICAL HISTORY: Insulin-dependent diabetes mellitus, type 2, neuropathy in bilateral hands, forearms, possible Charcot joint, cellulitis, ischemic cardiomyopathy, AICD, pacemaker, intermittent claudication, chronic kidney disease type 3, hypothyroidism, bilateral tinnitus. PAST SURGICAL HISTORY: CABG, heart catheterization with stent, pacemaker, bilateral cataract removal, aortogram with runoff. He has had a permanent pacemaker since 2006. FAMILY HISTORY: Sister with diabetes mellitus, chronic renal disease, hypertension. Father with myocardial infarction. Brother with coronary artery disease, CVA, TIA, diabetes, myocardial infarction. Mother with diabetes mellitus, renal disease. PHYSICAL EXAMINATION: This is an obese white male in no acute distress. PSYCH: Fair mood and affect. NEUROLOGIC: Alert and oriented x3. CARDIOVASCULAR: S1, S2. LUNGS: Mostly clear. Scattered wheeze. GI: Soft. Normal bowel sounds. No mass or organomegaly. EXTREMITIES: Severe bilateral lower extremity redness with anterior ulcers on the left leg, open wounds consistent with cellulitis of the left foot and extreme redness and warmth throughout the leg from the knee down to the ankle. He has swelling over the ankle areas bilaterally. VITAL SIGNS: Reviewed. ASSESSMENT: 1. Cellulitis of the left leg. 2. Leukocytosis secondary to left leg inflammation. Dr. Bustamante is consulted. 3. Abnormal chest x-ray, possible pneumonia. 4. Uncontrolled diabetes mellitus. 5. Elevated blood sugar secondary to sepsis. Broad-spectrum antibiotics were ordered. Dr. Bustamante and Dr. Ferris consulted. Continue home medicines, IV antibiotics. MMODL / IJN: [id number] /
[2020-12-06 22:19] LABS: Glucose,Whole Blood 284 mg/dL (75-99)
--- NOTE | 2020-12-07 00:06 | CONS ---
CONSULTATION DATE OF SERVICE: 12/06/2020. REASON FOR CONSULTATION: Lower extremity wound and cellulitis. HISTORY OF PRESENT ILLNESS: The patient is a 65-year-old male apparently seemed to have problem with lower extremity venostasis ulcer for which the patient does follow up with Dr. Armenta's group. The patient mentioned that he was evaluated by his surgeon last week and did have compression dressing applied. The patient apparently was supposed to have his pacemaker generator battery change. However, the patient did have fever last night and the patient was advised to go to the ER for further evaluation. Patient, on presentation to the hospital, was afebrile. Subsequently, spiked a fever of 101.7 Fahrenheit. The patient denies having any headache or URI symptoms. Denies having any chest pain or shortness of breath or cough. No nausea, no vomiting. No abdominal pain. No diarrhea. The patient did have ulcers to both lower extremities did seem to have more swelling and redness to the left foot area with a necrotic wound on the plantar aspect. The patient did have neuropathy. Denies significant pain to the left foot. Patient with these symptoms has been evaluated by the primary physician. On arrival to the ER, the patient did have x-rays of the foot, shows moderate diffuse worse edema with moderate diffuse soft tissue swelling. Chest x-ray was negative for any pneumonia. The patient did have white count of 21,000 creatinine was 1.95. Urine has been negative. Dale PCR was negative. The patient was started on vancomycin and Zosyn and admitted to the hospital. Infectious Disease was consulted for further management of antibiotic therapy. REVIEW OF SYSTEMS: Positive points have been mentioned in HPI. Rest of the systems are negative. PAST MEDICAL HISTORY: Diabetes mellitus, lower extremity venostasis ulcer, coronary artery disease, arrhythmia, arthritis. PAST SURGERY HISTORY: Coronary artery bypass grafting, PTCA with stenting and pacemaker placement. SOCIAL HISTORY: The patient is , lives with his . Denies smoking, drinking or drug use. FAMILY HISTORY: Father with history of ME. Mother history of diabetes and renal insufficiency. ALLERGIES: No known drug allergies. MEDICATIONS: The patient is currently on Tylenol, Lipitor, Zosyn, fenofibrate, Lasix, NovoLog, Synthroid, Cozaar, Lopressor, Narcan and vancomycin. PHYSICAL EXAMINATION: Blood pressure is 145/65, pulse 94, temperature 98.8, T-max 101.7. He is 98% on room air. General description: The patient is a middle-aged male lying in bed in no distress. No tachypnea or accessory muscle of respiration use. HEENT examination: No scleral icterus. Oral mucous membranes dry. NECK: Trachea central. No thyromegaly. LUNGS: Unlabored breathing, decreased intensity in breath sounds. No wheeze. HEART S1, S2. Regular rate and rhythm. ABDOMEN: Soft, no tenderness. No guarding. No rigidity. EXTREMITIES: No edema of the feet. SKIN examination: No rash or mass palpable. NEUROLOGICALLY: The patient is awake, alert, oriented x3. Mood and affect normal. Left foot did have a necrotic wound interval from some swelling and draining, wound on the right foot and ankle area did not have significant soft tissue surrounding redness. LABS: Hemoglobin 8.8, white count 21.9, BUN of 53, creatinine 1.95. Urine is negative. DIAGNOSTIC IMPRESSION AND PLAN: 1. Patient admitted to the hospital with a fever, elevated white count, sepsis, source is likely left lower extremity wound with secondary cellulitis. Underlying diabetes. We will need to cover for both Gram-positive as well as Gram-negative pathogen. 2. Patient high risk for nephrotoxicity vancomycin. PLAN: 1. Vancomycin, pharmacy to dose, target of 15 while watching kidney function closely. 2. Discontinue Zosyn to decrease risk of nephrotoxicity in this combination. 3. Will add cefepime to cover for the Gram-negative. 4. Vascular surgery evaluation for possible debridement and deep culture. 5. We will follow on clinical condition and further adjust medication if needed. Thank you for this consultation. Will follow the patient along with you. MMODL / IJN: [id number] /
[2020-12-07] MEDS: SODIUM CHLORIDE 0.9% 1,000 ML IV SCH ×2 (00:17→11:45)
[2020-12-07] MEDS: ACETAMINOPHEN TAB 500 MG TAB PO PRN ×2 (03:00→21:09)
[2020-12-07] MEDS: LEVOTHYROXINE 100 MCG TAB PO SCH (05:50)
[2020-12-07] MEDS: VANCOMYCIN 1,500 MG in SODIUM CHLORIDE 0.9% 250 ML IVPB SCH (05:50)
[2020-12-07] MEDS: LEVOTHYROXINE 50 MCG TAB PO SCH (05:50)
[2020-12-07] MEDS ORDERED: VANCOMYCIN 1,500 MG in SODIUM CHLORIDE 0.9% 250 ML IVPB SCH (06:00)
[2020-12-07 07:17] LABS: Glucose,Whole Blood 290 mg/dL (75-99)
[2020-12-07] MEDS: LOSARTAN 50 MG TAB PO SCH (08:08)
[2020-12-07] MEDS: FUROSEMIDE 20 MG TAB PO SCH (08:08)
[2020-12-07] MEDS: METOPROLOL TARTRATE 25 MG TAB PO SCH (08:08)
[2020-12-07] MEDS: FENOFIBRATE 160 MG TAB PO SCH (08:08)
[2020-12-07] MEDS: ATORVASTATIN 40 MG TAB PO SCH (08:08)
[2020-12-07] MEDS: INSULIN ASPART (NovoLOG) 100 UNIT/ML VIAL SQ SCH ×4 (08:14→21:10)
--- NOTE | 2020-12-07 10:50 | P.CNPUL ---
History of Present Illness Consult date: 12/07/20 Reason for consult: dyspnea Chief complaint: shortness of breath History of present illness: this is a 65-year-old morbidly obese male with the prior medical history of type 2 diabetes mellitus with his complication and sequelae including peripheral arterial disease neuropathy and chronic leg wounds patient also has chronic renal failure, patient presented into the hospital with the increased blood sugar, also has a problem of shortness of breath had fever of 101, denies any cough or sputum production denies any chest pain, Dr. Ross from vascular surgery has been following him for lower extremity woundshim a patient used to smoke but quit several years ago he used to smoke 2 packs per day quit about 10- 14 years, his prior history also significant for bypass surgery and stent placement, his covid 19 testing is negative, white cell count is 21,900, hemoglobin is 8.4, BUN/creatinine 53 and 1.9,left foot x-ray noted to have Charcot-type arthropathy with soft tissue swelling, chest x-ray prominent interstitium/infiltrate,subtle pneumonia cannot be excludedThomas patient is on Vanco along with cephapirin wound care on consult Review of Systems All systems: negative Past Medical History Past Medical History: Diabetes Mellitus Additional Past Medical History / Comment(s): IDDM type II, neuropathy bilateral hands/forearms/lower legs/feet, RECENT ADMISSION FOR bilateral lower leg wounds/WCC pt, bilateral leg edema, CURRENTLY LEFT LEG IS CLEAR, RT LEG STILL HAS SOME CELLULITIS WITH A DRESSING ON IT, ischemic cardiomyopathy/AICD, vtach, past medical record documents paroxysmal Afib/pt does not recall this, bilateral lower leg intermittent claudiaction/PAD, chronic renal disease stage III, anem ia, bilateral tinnitis/[place], hypothyroid, arthritis bilateral hands with R hand worse, Last Myocardial Infarction Date:: 2006 History of Any Multi-Drug Resistant Organisms: None Reported Past Surgical History: Coronary Bypass/CABG, Heart Catheterization, Heart Catheterization With Stent, Pacemaker Additional Past Surgical History / Comment(s): PCI with stent 1998, 2006 CABG 3 vessel and AICD, DFTs, aortagram with runoff, colonoscopy, bilateral cataract removals/lens implants. Past Anesthesia/Blood Transfusion Reactions: No Reported Reaction Date of Last Stent Placement:: 1998 Type of Cardiac Device: Permanent Pacemaker Device Placement Date:: 2006 Past Psychological History: No Psychological Hx Reported Additional Psychological History / Comment(s): Pt resides with his spouse. He uses a cane or walker to ambulate. He drives. Smoking Status: Former smoker Past Alcohol Use History: None Reported Additional Past Alcohol Use History / Comment(s): STARTED SMOKING AT AGE 17 QUIT 2006 SMOKED 1 1/2 PPD Past Drug Use History: None Reported - Past Family History Sister(s) Additional Family Medical History / Comment(s): Pt has a sister with COPD, another sister with diabetes/copd/htn and another sister with diabetes. Father Family Medical History: Myocardial Infarction ([place]) Additional Family Medical History / Comment(s): Father of a [place] at the age of 75 yrs. Brother(s) Family Medical History: Coronary Artery Disease (CAD), CVA/TIA, Diabetes Mellitus, Myocardial Infarction ([place]) Additional Family Medical History / Comment(s): One brother had a [place] at 38yrs and at age 48yrs. Another brother is alive and had a stroke. Mother Family Medical History: Diabetes Mellitus, Renal Disease Additional Family Medical History / Comment(s): Mother at age 62 from renal failure Medications and Allergies Home Medications Medication Instructions Recorded Confirmed Type Fenofibrate 160 mg PO DAILY 03/31/14 12/06/20 History Insulin Lispro [humaLOG Kwikpen] See Protocol SQ ACHS PRN 03/31/14 12/06/20 History Losartan Potassium 50 mg PO DAILY 03/31/14 12/06/20 History Atorvastatin [Lipitor] 40 mg PO DAILY 05/24/20 12/06/20 History Levothyroxine Sodium [Synthroid] 50 mcg PO DAILY 05/24/20 12/06/20 History Levothyroxine Sodium [Synthroid] 200 mcg PO DAILY 05/24/20 12/06/20 History Metoprolol Tartrate 75 mg PO DAILY 05/24/20 12/06/20 History Dulaglutide [Trulicity] 3 mg SQ HENRY 11/30/20 12/06/20 History Furosemide [Lasix] 20 mg PO DAILY 11/30/20 12/06/20 History Insulin Glargine,Hum.rec.anlog 35 units SQ DAILY 11/30/20 12/06/20 History [Sofia Fajardo] Acetaminophen Tab [Tylenol Tab] 1,000 mg PO Q6HR PRN 12/06/20 12/06/20 History Allergies Allergy/AdvReac Type Severity Reaction Status Date / Time No Known Allergies Allergy Verified 12/06/20 08:56 Physical Exam Vitals: Vital Signs Temp Pulse Pulse Resp BP BP Pulse Ox 12/07/20 09:21 98.0 F 71 16 125/96 96 12/07/20 05:48 99.5 F 77 16 124/61 94 L 12/07/20 02:00 100.7 F H 82 16 125/65 96 12/06/20 22:12 99.9 F H 85 19 124/70 97 12/06/20 18:51 99.8 F H 94 16 145/65 98 12/06/20 17:34 101.7 F H 88 18 123/57 95 12/06/20 16:00 98.2 F 91 20 123/81 96 12/06/20 14:40 86 20 146/68 100 12/06/20 13:00 63 20 121/64 95 12/06/20 11:00 78 18 146/67 100 Intake and Output 12/06/20 12/07/20 12/07/20 22:59 06:59 14:59 Other: Voiding Method Bedpan # Voids 1 # Bowel Movements 1 - Constitutional General appearance: disheveled, morbidly obese - EENT Eyes: PERRLA Ears: bilateral: normal - Neck Neck: normal ROM Carotids: bilateral: upstroke normal - Respiratory Respiratory: bilateral: diminished - Cardiovascular Rhythm: regular Heart sounds: normal: S1, S2 - Gastrointestinal General gastrointestinal: normal bowel sounds - Integumentary bilateral foot infection with left foot more than the right side - Neurologic Neurologic: CNII-XII intact - Musculoskeletal Musculoskeletal: gait normal, generalized weakness, strength equal bilaterally - Psychiatric Psychiatric: A&O x's 3, appropriate affect, intact judgment & insight Results - Laboratory Findings CBC and BMP: 12/06/20 08:08 12/06/20 08:08 Abnormal lab findings: Abnormal Labs 12/06/20 12/06/20 12/06/20 08:08 08:08 09:40 WBC 21.9 H RBC 3.43 L Hgb 8.4 L Hct 26.6 L MCV 77.5 L MCH 24.5 L Plt Count 456 H Neutrophils # 19.7 H Sodium 130 L Chloride 94 L BUN 53 H Creatinine 1.95 H Glucose 293 H POC Glucose (mg/dL) Alkaline Phosphatase 227 H C-Reactive Protein 328.9 H Total Protein 6.0 L Albumin 2.6 L Urine Protein 1+ H Urine Glucose (UA) 4+ H Urine Blood Trace H Urine Mucus Rare H 12/06/20 12/06/20 12/07/20 14:42 22:17 07:15 WBC RBC Hgb Hct MCV MCH Plt Count Neutrophils # Sodium Chloride BUN Creatinine Glucose POC Glucose (mg/dL) 289 H 284 H 290 H Alkaline Phosphatase C-Reactive Protein Total Protein Albumin Urine Protein Urine Glucose (UA) Urine Blood Urine Mucus - Diagnostic Findings Chest x-ray: report reviewed, image reviewed (finding as noted above) Assessment and Plan Assessment: sepsis involving bilateral foot infection and cellulitis Atypical pneumonia Chronic kidney disease Uncontrolled diabetes and neuropathy along with vasculopathy hypertension hypertensive cardiovascular disease Dyslipidemia Morbid obesity and likely obstructive sleep apnea Plan: continue deep breathing exercise incentive spirometry Follow clinical course closely with antibiotics Add oral doxycycline Patient will need a sleep study as outpatient Further recommendations pending plan of care as per clinical response of patient Time with Patient: Greater than 30
[2020-12-07 11:12] LABS: African American GFR (CKD) 42.2 (60.0-200.0); Albumin 2.5 g/dL (3.80-4.90); Albumin/Globulin Ratio 0.96 (1.60-3.17); BUN/Creat Ratio 24.21 Ratio (12.00-20.00); Calcium 7.7 mg/dL (8.7-10.3); Globulin 2.6 g/dL (1.6-3.3); Non-African American GFR(CKD) 36.4 (60.0-200.0); Potassium 3.7 mmol/L (3.5-5.5); Total Bilirubin 0.5 mg/dL (0.2-1.2); Total Protein 5.1 g/dL (6.2-8.2)
[2020-12-07 11:38] LABS: Basophils # (A) 0.05 X 10*3/uL (0.00-0.10); Basophils % (A) 0.3 %; Eosinophils # (A) 0.08 X 10*3/uL (0.04-0.35); Eosinophils % (A) 0.4 %; HCT 22.8 % (39.6-50.0); Lymphocytes # (A) 1.01 X 10*3/uL (0.90-5.00); Lymphocytes % (A) 5.5 %; MCH 24.4 pg (27.0-32.0); MCHC 30.7 g/dL (32.0-37.0); MCV 79.4 fL (80.0-97.0); Mean Platelet Volume 11.5 fL (9.5-12.2); Monocytes % (A) 10.3 %; Neutrophils # (A) 15.19 X 10*3/uL (1.80-7.70); Neutrophils % (A) 82.4 %; Platelet Count 422 X 10*3/uL (140-440); RBC 2.87 X 10*6/uL (4.40-5.60); RDW 15.2 % (11.5-14.5); WBC 18.43 X 10*3/uL (4.50-10.00)
[2020-12-07] MEDS: CEFEPIME 2 GM in SODIUM CHLORIDE 0.9% 100 ML IVPB SCH ×2 (11:42→21:10)
[2020-12-07 12:08] LABS: Glucose,Whole Blood 399 mg/dL (75-99)
--- NOTE | 2020-12-07 13:22 | P.GSCN ---
History of Present Illness Consult date: 12/07/20 Reason for Consult: Left foot ischemia History of present illness: The same pleasant 65-year-old male with bilateral lower extremity wounds. His past medical history includes type 2 diabetes mellitus, neuropathy, bilateral lower extremity chronic wounds, ischemic cardiomyopathy with AICD, bilateral intermittent claudication on chronic anemia, and chronic renal disease stage III. The patient has been following with Dr. Ross in the office. The patient reports he is to follow with Dr. Lira in the wound care center. The patient states Carlos he began with a fever of 101, he was scheduled yesterday to have his defibrillator battery replacement but continued to have a fever and was told to come to the emergency department. He had a x-ray of the left foot that showed Charcot type arthroplasty suspected, arterial vascular calcification. In June 2017 he underwent an aortogram with runoff for bilateral claudication by Dr. Townsend that showed an occluded anterior tibial bilaterally with medical management. He is currently denying any chest pain, shortness of breath. He does have some discomfort with walking. He does have neuropathy and is unable to feel much in the bilateral lower extremities. Left greater than right. Review of Systems 14 point review systems was completed all pertinent positives and negatives as stated in the HPI. Past Medical History Past Medical History: Diabetes Mellitus Additional Past Medical History / Comment(s): IDDM type II, neuropathy bilateral hands/forearms/lower legs/feet, RECENT ADMISSION FOR bilateral lower leg wounds/WCC pt, bilateral leg edema, CURRENTLY LEFT LEG IS CLEAR, RT LEG STILL HAS SOME CELLULITIS WITH A DRESSING ON IT, ischemic cardiomyopathy/AICD, vtach, past medical record documents paroxysmal Afib/pt does not recall this, bilateral lower leg intermittent claudiaction/PAD, chronic renal disease stage III, anemia, bilateral tinnitis/[place], hypothyroid, arthritis bilateral hands with R hand worse, Last Myocardial Infarction Date:: 2006 History of Any Multi-Drug Resistant Organisms: None Reported Past Surgical History: Coronary Bypass/CABG, Heart Catheterization, Heart Catheterization With Stent, Pacemaker Additional Past Surgical History / Comment(s): PCI with stent 1998, 2006 CABG 3 vessel and AICD, DFTs, aortagram with runoff, colonoscopy, bilateral cataract removals/lens implants. Past Anesthesia/Blood Transfusion Reactions: No Reported Reaction Date of Last Stent Placement:: 1998 Type of Cardiac Device: Permanent Pacemaker Device Placement Date:: 2006 Past Psychological History: No Psychological Hx Reported Additional Psychological History / Comment(s): Pt resides with his spouse. He uses a cane or walker to ambulate. He drives. Smoking Status: Former smoker Past Alcohol Use History: None Reported Additional Past Alcohol Use History / Comment(s): STARTED SMOKING AT AGE 17 QUIT 2006 SMOKED 1 1/2 PPD Past Drug Use History: None Reported - Past Family History Sister(s) Additional Family Medical History / Comment(s): Pt has a sister with COPD, another sister with diabetes/copd/htn and another sister with diabetes. Father Family Medical History: Myocardial Infarction ([place]) Additional Family Medical History / Comment(s): Father of a [place] at the age of 75 yrs. Brother(s) Family Medical History: Coronary Artery Disease (CAD), CVA/TIA, Diabetes Mellitus, Myocardial Infarction ([place]) Additional Family Medical History / Comment(s): One brother had a [place] at 38yrs and at age 48yrs. Another brother is alive and had a stroke. Mother Family Medical History: Diabetes Mellitus, Renal Disease Additional Family Medical History / Comment(s): Mother at age 62 from renal failure Medications and Allergies Home Medications Medication Instructions Recorded Confirmed Type Fenofibrate 160 mg PO DAILY 03/31/14 12/06/20 History Insulin Lispro [humaLOG Kwikpen] See Protocol SQ ACHS PRN 03/31/14 12/06/20 History Losartan Potassium 50 mg PO DAILY 03/31/14 12/06/20 History Atorvastatin [Lipitor] 40 mg PO DAILY 05/24/20 12/06/20 History Levothyroxine Sodium [Synthroid] 50 mcg PO DAILY 05/24/20 12/06/20 History Levothyroxine Sodium [Synthroid] 200 mcg PO DAILY 05/24/20 12/06/20 History Metoprolol Tartrate 75 mg PO DAILY 05/24/20 12/06/20 History Dulaglutide [Trulicity] 3 mg SQ HENRY 11/30/20 12/06/20 History Furosemide [Lasix] 20 mg PO DAILY 11/30/20 12/06/20 History Insulin Glargine,Hum.rec.anlog 35 units SQ DAILY 11/30/20 12/06/20 History [Toujeo Solostar] Acetaminophen Tab [Tylenol Tab] 1,000 mg PO Q6HR PRN 12/06/20 12/06/20 History Allergies Allergy/AdvReac Type Severity Reaction Status Date / Time No Known Allergies Allergy Verified 12/06/20 08:56 Surgical - Exam Vital Signs Temp Pulse Resp BP Pulse Ox 98.0 F 78 18 120/62 97 12/06/20 07:12 12/06/20 07:12 12/06/20 07:12 12/06/20 07:12 12/06/20 07:12 General appearance: The patient is alert, oriented, in no acute distress. HET: Head is normocephalic and atraumatic. Pupils are equal and reactive. Oropharynx is clear without lesions. Neck: Supple without lymphadenopathy. Trachea midline. Heart: S1 S2. Regular rate and rhythm. Lungs: Clear to auscultation. Abdomen: Soft, nontender, nondistended. Extremities: Bilateral pedal edema. Left lower extremity with ulcer on proximal dorsal aspect measuring 2 cm x 1 cm. There is an ulcer that covers the majority of the plantar surface of the left foot with some serosanguineous drainage. Malodorous. Right anterior aspect of [place] with a ulcer 3 x 1 cm dry, nondra ining. Ulcer to the lateral aspect of the right plantar surface of his foot measuring 5 x 3 cm. Neurological: No focal deficits. Strength and sensation are grossly intact. Results X-ray left: Shows mild to moderate diffuse subcutaneous edema with moderate to severe diffuse soft tissue swelling. Large inferior calcaneal spur. Sclerosis and deformity of the navicular bone. Moderate to severe narrowing and subchondral cystic change at the Lisfranc joints. No suspicious bony destruction or of abnormal or steel reaction to suggest acute osteomyelitis. significant arterial vascular calcification. - Labs 12/07/20 06:49 12/07/20 06:49 Abnormal Lab Results - Last 24 Hours (Table) 12/06/20 12/06/20 12/06/20 Range/Units 09:40 14:42 22:17 POC Glucose (mg/dL) 289 H 284 H (75-99) mg/dL Urine Protein 1+ H (Negative) Urine Glucose (UA) 4+ H (Negative) Urine Blood Trace H (Negative) Urine Mucus Rare H (None) /hpf 12/07/20 Range/Units 07:15 POC Glucose (mg/dL) 290 H (75-99) mg/dL Urine Protein (Negative) Urine Glucose (UA) (Negative) Urine Blood (Negative) Urine Mucus (None) /hpf Microbiology - Last 24 Hours (Table) 12/06/20 11:15 Gram Stain - Preliminary Foot - Right Wound Culture - Preliminary 12/06/20 14:35 Anaerobic Culture - Preliminary Foot - Right Assessment and Plan Assessment: 1. Bilateral lower extremity wounds 2. Fever 3. Diabetes mellitus 4. Neuropathy 5. Ischemic cardiomyopathy 6. History of intermittent claudication/peripheral arterial disease 7. Chronic anemia 8. Chronic kidney disease Plan: 1. Continue IV antibiotics per infectious disease 2. Bilateral lower extremity arterial ultrasound ordered, pending results 3. Continue current medical treatment 4. Cardiology consult for cardiac clearance 5. Patient will be scheduled for bilateral lower extremity debridement tomorrow if cleared by cardiology 6. By mouth after midnight The impression and plan of care has been dictated as directed. Dr. Armenta I performed a history and examination of this patient, discussed the same with the dictator. I agree with the dictator's note ,documented as a scribe. Any additional findings or plans will be noted.
--- NOTE | 2020-12-07 14:27 | P.CRDCN ---
History of Present Illness History of present illness: HISTORY OF PRESENTING ILLNESS This is a pleasant 65-year-old male past medical history significant for coronary artery disease status post CABG, ischemic cardiomyopathy with recovered ejection fraction and status post AICD placement, peripheral artery disease with bilateral occluded anterior tibial arteries in 2017, bilateral vascular wounds, type 2 diabetes,chronic kidney disease, neuropathy of upper and lower extremities. He follows in the office with Dr. Henderson. We have been asked to see in consultation for AICD management and potential cardiac clearance for surgery. Patient is seen and examined at bedside resting comfortably, no acute distress. Patient states he was scheduled to get had generator change for his AICD however had a temperature of 101.7, the procedure was cancelled, and patient was told to present to the emergency department for further evaluation. He has been feeling sick over this past week, having high blood sugars and having chills. He has had problems with ambulation and bilateral leg pain that has progressively gotten worse over the past couple years. He states the right leg is worse than his left. He follows with Dr. Ross for his vascular wounds on his bilateral legs. He denies shortness of breath, chest pain, palpitations, nausea or vomiting, abdominal pain. Laboratory data reviewed, Covid-19 negative, WBC 18.43, Hgb 7.0, Plt 422, Sodium 136, K 3.7, creatinine 1.9, BUN 46, Vital signs BP 125/96 HR 71, SpO2 96% on room air, afebrile. DIAGNOSTICS Telemetry tracings indicate - patient not on alarm security or surveillance monitor Chest xray New faint multifocal bilateral opacities. Echo 08/29/20: EF 50-55%. Diastolic function evaluation indicates normal diastolic function. Carotid duplex to 08/23/20- Right: irregular heterogenous plaque noted in the ICA, bulb, CCA- 50-79% stenosis. Left: irregular heterogenous plaque noted in t he ICA, bulb, CCA 16-49% stenosis. Current home cardiac medications include metoprolol titrate 75 mg daily, losartan 50 mg daily, Lasix 20 mg daily, atorvastatin 40 mg daily, fenofibrate 160mg daily REVIEW OF SYSTEMS At the time of my exam: CONSTITUTIONAL:+ fever and chills. CARDIOVASCULAR: Denies chest pain, shortness of breath, orthopnea, PND or palpitations. RESPIRATORY: Denies cough. GASTROINTESTINAL: Denies abdominal pain, diarrhea, constipation, nausea or vomiting. MUSCULOSKELETAL: +bilateral leg pain, Denies myalgias. NEUROLOGIC: Denies numbness, tingling, headacbe or weakness. ENDOCRINE: Denies fatigue, weight change, polydipsia or polyurina. GENITOURINARY: Denies burning, hematuria or urgency with micturation. HEMATOLOGIC: Denies history of anemia or bleeding. PHYSICAL EXAMINATION CONSTITUTIONAL: No apparent distress. HEENT: Head is normocephalic. Pupils are equal, round. Sclerae anicteric. Mucous membranes of the mouth are moist. No JVD. No carotid bruit. CHEST EXAMINATION: Lungs are clear to auscultation. No chest wall tenderness is noted on palpation or with deep breathing. HEART EXAMINATION: Regular rate and rhythm. S1, S2 heard. No murmurs, gallops or rub. ABDOMEN: Soft, nontender. Positive bowel sounds. EXTREMITIES: +2 radial pulses bilaterally. +1 lower extremity edema and bilateral lower extremity pain with palpation. Bilateral lower extremity wounds covered in gauze in tape. NEUROLOGIC EXAMINATION: Patient is awake, alert and oriented x3. ASSESSMENT -Coronary artery disease status post CABG -Ischemic cardiomyopathy with recovered ejection fraction and status post AICD placement -Peripheral artery disease with bilateral occluded anterior tibial arteries in 2017 -Bilateral vascular wounds -Type 2 Diabetes -Chronic Kidney Disease PLAN -Will not proceed with AICD generator change at this time due fevers and infectious process this admission. -Will get a baseline EKG. Started aspirin 81mg daily. Continue home medication: metoprolol titrate 75 mg daily, losartan 50 mg daily, Lasix 20 mg daily, atorvastatin 40 mg daily, fenofibrate 160mg daily -From cardiac perspective, patient stable and ok to proceed with wound debridement tomorrow. Nurse Practitioner note has been reviewed, I agree with a documented findings and plan of care. Patient was seen and examined. Past Medical History Past Medical History: Diabetes Mellitus Additional Past Medical History / Comment(s): IDDM type II, neuropathy bilateral hands/forearms/lower legs/feet, RECENT ADMISSION FOR bilateral lower leg wounds/WCC pt, bilateral leg edema, CURRENTLY LEFT LEG IS CLEAR, RT LEG STILL HAS SOME CELLULITIS WITH A DRESSING ON IT, ischemic cardiomyopathy/AICD, vtach, past medical record documents paroxysmal Afib/pt does not recall this, bilateral lower leg intermittent claudiaction/PAD, chronic renal disease stage III, anemia, bilateral tinnitis/[place], hypothyroid, arthritis bilateral hands with R hand worse, Last Myocardial Infarction Date:: 2006 History of Any Multi-Drug Resistant Organisms: None Reported Past Surgical History: Coronary Bypass/CABG, Heart Catheterization, Heart Catheterization With Stent, Pacemaker Additional Past Surgical History / Comment(s): PCI with stent 1998, 2006 CABG 3 vessel and AICD, DFTs, aortagram with runoff, colonoscopy, bilateral cataract r emovals/lens implants. Past Anesthesia/Blood Transfusion Reactions: No Reported Reaction Date of Last Stent Placement:: 1998 Type of Cardiac Device: Permanent Pacemaker Device Placement Date:: 2006 Past Psychological History: No Psychological Hx Reported Additional Psychological History / Comment(s): Pt resides with his spouse. He uses a cane or walker to ambulate. He drives. Smoking Status: Former smoker Past Alcohol Use History: None Reported Additional Past Alcohol Use History / Comment(s): STARTED SMOKING AT AGE 17 QUIT 2006 SMOKED 1 1/2 PPD Past Drug Use History: None Reported - Past Family History Sister(s) Additional Family Medical History / Comment(s): Pt has a sister with COPD, another sister with diabetes/copd/htn and another sister with diabetes. Father Family Medical History: Myocardial Infarction (ID) Additional Family Medical History / Comment(s): Father of a ID at the age of 75 yrs. Brother(s) Family Medical History: Coronary Artery Disease (CAD), CVA/TIA, Diabetes Mellit us, Myocardial Infarction (ID) Additional Family Medical History / Comment(s): One brother had a ID at 38yrs and at age 48yrs. Another brother is alive and had a stroke. Mother Family Medical History: Diabetes Mellitus, Renal Disease Additional Family Medical History / Comment(s): Mother at age 62 from renal failure Medications and Allergies Home Medications Medication Instructions Recorded Confirmed Type Fenofibrate 160 mg PO DAILY 03/31/14 12/06/20 History Insulin Lispro [humaLOG Kwikpen] See Protocol SQ ACHS PRN 03/31/14 12/06/20 History Losartan Potassium 50 mg PO DAILY 03/31/14 12/06/20 History Atorvastatin [Lipitor] 40 mg PO DAILY 05/24/20 12/06/20 History Levothyroxine Sodium [Synthroid] 50 mcg PO DAILY 05/24/20 12/06/20 History Levothyroxine Sodium [Synthroid] 200 mcg PO DAILY 05/24/20 12/06/20 History Metoprolol Tartrate 75 mg PO DAILY 05/24/20 12/06/20 History Dulaglutide [Trulicity] 3 mg SQ HENRY 11/30/20 12/06/20 History Furosemide [Lasix] 20 mg PO DAILY 11/30/20 12/06/20 History Insulin Glargine,Hum.rec.anlog 35 units SQ DAILY 11/30/20 12/06/20 History [Toujeo Solostar] Acetaminophen Tab [Tylenol Tab] 1,000 mg PO Q6HR PRN 12/06/20 12/06/20 History Allergies Allergy/AdvReac Type Severity Reaction Status Date / Time No Known Allergies Allergy Verified 12/06/20 08:56 Physical Exam Vitals: Vital Signs Temp Pulse Pulse Resp BP BP Pulse Ox 12/07/20 09:21 98.0 F 71 16 125/96 96 12/07/20 07:45 16 12/07/20 05:48 99.5 F 77 16 124/61 94 L 12/07/20 02:00 100.7 F H 82 16 125/65 96 12/06/20 22:12 99.9 F H 85 19 124/70 97 12/06/20 18:51 99.8 F H 94 16 145/65 98 12/06/20 17:34 101.7 F H 88 18 123/57 95 12/06/20 16:00 98.2 F 91 20 123/81 96 12/06/20 14:40 86 20 146/68 100 Intake and Output 12/06/20 12/07/20 12/07/20 22:59 06:59 14:59 Intake Total 200 Balance 200 Intake: Oral 200 Other: Voiding Method Bedpan Bedpan # Voids 1 # Bowel Movements 1 Results 12/07/20 06:49 12/07/20 06:49 Cardiac Enzymes 12/07/20 Range/Units 06:49 AST 42 H (14-35) U/L CBC 12/07/20 Range/Units 06:49 WBC 18.43 H (4.50-10.00) X 10*3/uL RBC 2.87 L (4.40-5.60) X 10*6/uL Hgb 7.0 L (13.0-17.0) g/dL Hct 22.8 L (39.6-50.0) % Plt Count 422 (140-440) X 10*3/uL Comprehensive Metabolic Panel 12/07/20 Range/Units 06:49 Sodium 136 (135-145) mmol/L Potassium 3.7 (3.5-5.5) mmol/L Chloride 99 (96-109) mmol/L Carbon Dioxide 27.0 (21.6-31.8) mmol/L BUN 46.0 H (9.0-27.0) mg/dL Creatinine 1.9 H (0.6-1.5) mg/dL Glucose 265 H (70-110) mg/dL Calcium 7.7 L (8.7-10.3) mg/dL AST 42 H (14-35) U/L ALT 22 (10-49) U/L Alkaline Phosphatase 222 H (41-126) U/L Total Protein 5.1 L (6.2-8.2) g/dL Albumin 2.50 L (3.80-4.90) g/dL Current Medications Generic Name Dose Route Start Last Admin Trade Name Freq PRN Reason Stop Dose Admin Acetaminophen 1,000 mg 12/06/20 09:34 12/07/20 03:00 Acetaminophen Tab 500 Mg Tab PO 1,000 mg Q6HR PRN Administration Mild Pain or Fever >= 100.5 Atorvastatin Calcium 40 mg 12/07/20 09:00 12/07/20 08:08 Atorvastatin 40 Mg Tab PO 40 mg DAILY VICK Administration Doxycycline Monohydrate 100 mg 12/07/20 21:00 Doxycycline 100 Mg Cap PO BID VICK Fenofibrate 160 mg 12/07/20 09:00 12/07/20 08:08 Fenofibrate 160 Mg Tab PO 160 mg DAILY VICK Administration Furosemide 20 mg 12/07/20 09:00 12/07/20 08:08 Furosemide 20 Mg Tab PO 20 mg DAILY VICK Administration Sodium Chloride 1,000 mls @ 75 mls/hr 12/06/20 09:45 12/07/20 11:45 Saline 0.9% IV 75 mls/hr .[id number] VICK Administration Vancomycin HCl 1,500 mg/ 250 mls @ 125 mls/hr 12/07/20 06:00 12/07/20 05:50 Sodium Chloride IVPB 125 mls/hr Q24H VICK Administration Cefepime HCl 2 gm/ Sodium 100 mls @ 25 mls/hr 12/07/20 09:00 12/07/20 11:42 Chloride IVPB 25 mls/hr Q12HR VICK Administration Insulin Aspart 0 unit 12/06/20 12:30 12/07/20 12:31 Insulin Aspart (Novolog) 100 Unit/Ml Vial SQ 7 unit ACHS VICK Administration Protocol Levothyroxine Sodium 50 mcg 12/07/20 06:30 12/07/20 05:50 Levothyroxine 50 Mcg Tab PO 50 mcg DAILY@0630 VICK Administration Levothyroxine Sodium 200 mcg 12/07/20 06:30 12/07/20 05:50 Levothyroxine 100 Mcg Tab PO 200 mcg DAILY@0630 VICK Administration Losartan Potassium 50 mg 12/07/20 09:00 12/07/20 08:08 Losartan 50 Mg Tab PO 50 mg DAILY VICK Administration Metoprolol Tartrate 75 mg 12/07/20 09:00 12/07/20 08:08 Metoprolol Tartrate 25 Mg Tab PO 75 mg DAILY VICK Administration Morphine Sulfate 2 mg 12/06/20 09:35 Morphine Sulfate 2 Mg/Ml Syringe IVP Q4H PRN Pain Naloxone HCl 0.2 mg 12/06/20 09:31 Naloxone 0.4 Mg/Ml 1 Ml Vial IV Q2M PRN Opioid Reversal Intake and Output 12/06/20 12/07/20 12/07/20 22:59 06:59 14:59 Intake Total 200 Balance 200 Intake: Oral 200 Other: Voiding Method Bedpan Bedpan # Voids 1 # Bowel Movements 1 12/07/20 06:49 12/07/20 06:49
[2020-12-07] MEDS: ASPIRIN 81 MG PO SCH (15:50)
--- NOTE | 2020-12-07 16:47 | PN ---
PROGRESS NOTE This is a 65-year-old white male with severe cellulitis to the lower extremities bilaterally near the foot with open ulcerations, some ulcers, but he has surrounding redness and erythema spreading up to the legs, so he definitely has a wound infection in his legs. He also has some dark discoloration over the mid foot area. Vascular is seeing him for this. We will continue with treatment for possible pneumonia with doxycycline. He is supposed to have debridement tomorrow. CARDIOVASCULAR: S1, S2. LUNGS: Clear. GI: Soft. HEMATOLOGY: Negative Homans. ASSESSMENT: 1. Diabetic wound infection, cellulitis of the legs, vascular ulcers. 2. Chronic renal disease. 3. Leukocytosis secondary to cellulitis of the legs. 4. Possible pneumonia. 5. Ischemic cardiomyopathy. 6. Chronic anemia. Nothing by mouth. Debridement tomorrow in the OR. MMODL / IJN: [id number] /
[2020-12-07 16:57] LABS: Glucose,Whole Blood 461 mg/dL (75-99)
[2020-12-07] MEDS ORDERED: INSULIN ASPART (NovoLOG) 100 UNIT/ML VIAL SQ ONE (17:20)
[2020-12-07 20:19] LABS: Glucose,Whole Blood 326 mg/dL (75-99)
[2020-12-07] MEDS: DOXYCYCLINE 100 MG CAP PO SCH (22:16)
--- NOTE | 2020-12-08 01:40 | PN ---
PROGRESS NOTE DATE OF SERVICE: 12/07/2020 REASON FOR FOLLOWUP: Bilateral lower extremity wound cellulitis, left greater than right. INTERVAL HISTORY: The patient is currently afebrile. The patient is breathing comfortably. The patient denies having any chest pain, shortness of breath or cough. No abdominal pain. No worsening pain to the bilateral area. PHYSICAL EXAMINATION: Blood pressure 135/65, pulse of 74, temperature 98.9. He is 98% on room air. General description is a middle-aged male lying in bed in no distress. Respiratory system: Unlabored breathing, clear to auscultation anteriorly. Heart S1, S2. Regular rate and rhythm. ABDOMEN: Soft, no tenderness. LABS: Hemoglobin 7, white count of 18.4, BUN of 46, creatinine 1.9. Cultures currently pending. DIAGNOSTIC IMPRESSION AND PLAN: Patient with bilateral lower extremity wound cellulitis, left greater than right. Waiting for the vascular surgery debridement and deep cultures. Patient is covered with cefepime and vancomycin to continue while waiting for the culture to finalize. MMODL / IJN: [id number] /
[2020-12-08] MEDS: SODIUM CHLORIDE 0.9% 1,000 ML IV SCH ×2 (03:26→17:18)
[2020-12-08] MEDS: LEVOTHYROXINE 100 MCG TAB PO SCH (05:59)
[2020-12-08] MEDS: LEVOTHYROXINE 50 MCG TAB PO SCH (05:59)
[2020-12-08] MEDS: VANCOMYCIN 1,500 MG in SODIUM CHLORIDE 0.9% 250 ML IVPB SCH (05:59)
[2020-12-08 06:52] LABS: Glucose,Whole Blood 267 mg/dL (75-99)
[2020-12-08] MEDS: INSULIN ASPART (NovoLOG) 100 UNIT/ML VIAL SQ SCH ×4 (07:51→22:33)
[2020-12-08] MEDS: METOPROLOL TARTRATE 25 MG TAB PO SCH (07:52)
[2020-12-08] MEDS: FUROSEMIDE 20 MG TAB PO SCH (07:52)
[2020-12-08] MEDS: LOSARTAN 50 MG TAB PO SCH (07:52)
[2020-12-08] MEDS: ATORVASTATIN 40 MG TAB PO SCH (07:53)
[2020-12-08] MEDS: ASPIRIN 81 MG PO SCH (07:53)
[2020-12-08] MEDS: CEFEPIME 2 GM in SODIUM CHLORIDE 0.9% 100 ML IVPB SCH ×2 (07:53→22:34)
[2020-12-08] MEDS: FENOFIBRATE 160 MG TAB PO SCH (07:53)
--- NOTE | 2020-12-08 11:02 | P.PN ---
Subjective This is a pleasant 65-year-old male past medical history significant for coronary artery disease status post CABG, ischemic cardiomyopathy with recovered ejection fraction and status post AICD placement, peripheral artery disease with bilateral occluded anterior tibial arteries in 2017, bilateral vascular wounds, type 2 diabetes,chronic kidney disease, neuropathy of upper and lower extremities. He follows in the office with Dr. Henderson. We have been asked to see in consultation for AICD management and potential cardiac clearance for surgery. Patient is seen and examined at bedside resting comfortably, no acute distress. Patient states he was scheduled to get had generator change for his AICD however had a temperature of 101.7, the procedure was cancelled, and patient was told to present to the emergency department for further evaluation. He has been feeling sick over this past week, having high blood sugars and hav ing chills. He has had problems with ambulation and bilateral leg pain that has progressively gotten worse over the past couple years. He states the right leg is worse than his left. He follows with Dr. Ross for his vascular wounds on his bilateral legs. Echo 08/29/20: EF 50-55%. Diastolic function evaluation indicates normal diastolic function. Carotid duplex to 08/23/20- Right: irregular heterogenous plaque noted in the ICA, bulb, CCA- 50-79% stenosis. Left: irregular heterogenous plaque noted in the ICA, bulb, CCA 16-49% stenosis. 12/08/20: Patient is seen and examined at bedside, resting comfortably, no acute distress. He continues to have bilateral leg pain which is unchanged from yesterday. He denies shortness of breath, chest pain, palpitations, nausea or vomiting, abdominal pain. Vital signs BP 133/72, heart rate 71, 95% on room air, and temperature 99.5F. EKG- Plan for patient to get wound debridement today Current hospital cardiac medications include aspirin 81 mg daily, metoprolol titrate 75 mg daily, losartan 50 mg daily, Lasix 20 mg daily, atorvastatin 40 mg daily, fenofibrate 160mg daily PHYSICAL EXAMINATION CONSTITUTIONAL: No apparent distress. HEENT: Head is normocephalic. Pupils are equal, round. Sclerae anicteric. Mucous membranes of the mouth are moist. No JVD. No carotid bruit. CHEST EXAMINATION: Lungs are clear to auscultation. No chest wall tenderness is noted on palpation or with deep breathing. HEART EXAMINATION: Regular rate and rhythm. S1, S2 heard. No murmurs, gallops or rub. ABDOMEN: Soft, nontender. Positive bowel sounds. EXTREMITIES: +2 radial pulses bilaterally. +1 lower extremity edema and bilateral lower extremity pain with palpation. Bilateral lower extremity wounds covered in gauze in tape. NEUROLOGIC EXAMINATION: Patient is awake, alert and oriented x3. ASSESSMENT -Coronary artery disease status post CABG -Ischemic cardiomyopathy with recovered ejection fraction and status post AICD placement -Peripheral artery disease with bilateral occluded anterior tibial arteries in 2017 -Bilateral vascular wounds -Type 2 Diabetes -Chronic Kidney Disease PLAN -Will not proceed with AICD generator change at this time due fevers and infectious process this admission. -Continue home medication: metoprolol titrate 75 mg daily, aspirin 81mg daily, losartan 50 mg daily, Lasix 20 mg daily, atorvastatin 40 mg daily, fenofibrate 160mg daily . Nurse Practitioner note has been reviewed, I agree with a documented findings a nd plan of care. Patient was seen and examined. Objective - Vital Signs Vital signs: Vital Signs Temp 99.5 F 12/08/20 07:31 Pulse 71 12/08/20 07:31 Resp 20 12/08/20 07:31 BP 133/72 12/08/20 07:31 Pulse Ox 95 12/08/20 07:31 Intake & Output 12/07/20 12/08/20 12/08/20 18:59 06:59 18:59 Intake Total 500 Output Total 400 600 450 Balance 100 -600 -450 Intake: Oral 500 Output: Urine 400 600 450 Other: Voiding Method Bedpan Urinal - Labs CBC & Chem 7: 12/08/20 06:44 12/08/20 06:44 Labs: Abnormal Lab Results - Last 24 Hours (Table) 12/07/20 12/07/20 12/07/20 Range/Units 06:49 06:49 12:07 WBC 18.43 H (4.50-10.00) X 10*3/uL RBC 2.87 L (4.40-5.60) X 10*6/uL Hgb 7.0 L (13.0-17.0) g/dL Hct 22.8 L (39.6-50.0) % MCV 79.4 L (80.0-97.0) fL MCH 24.4 L (27.0-32.0) pg MCHC 30.7 L (32.0-37.0) g/dL RDW 15.2 H (11.5-14.5) % Immature Gran # 0.20 H (0.00-0.04) X 10*3/uL Neutrophils # 15.19 H (1.80-7.70) X 10*3/uL Monocytes # 1.90 H (0.20-1.00) X 10*3/uL BUN 46.0 H (9.0-27.0) mg/dL Creatinine 1.9 H (0.6-1.5) mg/dL Est GFR (CKD-EPI)AfAm 42.2 L (60.0-200.0) Est GFR (CKD-EPI)NonAf 36.4 L (60.0-200.0) BUN/Creatinine Ratio 24.21 H (12.00-20.00) Ratio Glucose 265 H (70-110) mg/dL POC Glucose (mg/dL) 399 H (75-99) mg/dL Calcium 7.7 L (8.7-10.3) mg/dL AST 42 H (14-35) U/L Alkaline Phosphatase 222 H (41-126) U/L Total Protein 5.1 L (6.2-8.2) g/dL Albumin 2.50 L (3.80-4.90) g/dL Albumin/Globulin Ratio 0.96 L (1.60-3.17) g/dL 12/07/20 12/07/20 12/08/20 Range/Units 16:55 20:17 06:45 WBC (4.50-10.00) X 10*3/uL RBC (4.40-5.60) X 10*6/uL Hgb (13.0-17.0) g/dL Hct (39.6-50.0) % MCV (80.0-97.0) fL MCH (27.0-32.0) pg MCHC (32.0-37.0) g/dL RDW (11.5-14.5) % Immature Gran # (0.00-0.04) X 10*3/uL Neutrophils # (1.80-7.70) X 10*3/uL Monocytes # (0.20-1.00) X 10*3/uL BUN (9.0-27.0) mg/dL Creatinine (0.6-1.5) mg/dL Est GFR (CKD-EPI)AfAm (60.0-200.0) Est GFR (CKD-EPI)NonAf (60.0-200.0) BUN/Creatinine Ratio (12.00-20.00) Ratio Glucose (70-110) mg/dL POC Glucose (mg/dL) 461 H 326 H 267 H (75-99) mg/dL Calcium (8.7-10.3) mg/dL AST (14-35) U/L Alkaline Phosphatase (41-126) U/L Total Protein (6.2-8.2) g/dL Albumin (3.80-4.90) g/dL Albumin/Globulin Ratio (1.60-3.17) g/dL Microbiology - Last 24 Hours (Table) 12/06/20 11:15 Gram Stain - Preliminary Foot - Right Wound Culture - Preliminary Strep agalactiae - (group b) Group D Enterococcus 12/06/20 08:04 Blood Culture - Preliminary Blood No Growth after 48 hours 12/06/20 07:51 Blood Culture - Preliminary Blood No Growth after 48 hours
[2020-12-08 11:07] LABS: Basophils # (A) 0.07 X 10*3/uL (0.00-0.10); Basophils % (A) 0.3 %; Eosinophils # (A) 0.33 X 10*3/uL (0.04-0.35); Eosinophils % (A) 1.6 %; HCT 23.8 % (39.6-50.0); HGB 7.3 g/dL (13.0-17.0); Lymphocytes # (A) 1.42 X 10*3/uL (0.90-5.00); Lymphocytes % (A) 6.9 %; MCH 24.4 pg (27.0-32.0); MCHC 30.7 g/dL (32.0-37.0); MCV 79.6 fL (80.0-97.0); Mean Platelet Volume 11.6 fL (9.5-12.2); Monocytes # (A) 1.49 X 10*3/uL (0.20-1.00); Monocytes % (A) 7.3 %; Neutrophils # (A) 16.81 X 10*3/uL (1.80-7.70); Neutrophils % (A) 82.3 %; Platelet Count 523 X 10*3/uL (140-440); RBC 2.99 X 10*6/uL (4.40-5.60); RDW 15.8 % (11.5-14.5); WBC 20.44 X 10*3/uL (4.50-10.00)
[2020-12-08 11:34] LABS: Glucose,Whole Blood 233 mg/dL (75-99)
[2020-12-08 11:41] LABS: African American GFR (CKD) 48.3 (60.0-200.0); Albumin 2.5 g/dL (3.80-4.90); Albumin/Globulin Ratio 0.96 (1.60-3.17); Anion Gap 8.8 mmol/L (4.00-12.00); BUN/Creat Ratio 24.12 Ratio (12.00-20.00); Calcium 7.6 mg/dL (8.7-10.3); Carbon Dioxide 27.2 mmol/L (21.6-31.8); Globulin 2.6 g/dL (1.6-3.3); Non-African American GFR(CKD) 41.7 (60.0-200.0); Potassium 4.1 mmol/L (3.5-5.5); Total Bilirubin 0.6 mg/dL (0.2-1.2); Total Protein 5.1 g/dL (6.2-8.2)
[2020-12-08] MEDS ORDERED: LACTATED RINGERS 1,000 ML IV ONE (11:59)
[2020-12-08] MEDS ORDERED: ONDANSETRON 4 MG/2 ML VIAL ONE (12:03)
[2020-12-08] MEDS ORDERED: ONDANSETRON 4 MG/2 ML VIAL IVP ONE (12:14)
[2020-12-08] MEDS ORDERED: DEXAMETHASONE SOD PHOSPHATE 4 MG/ML 1 ML VIAL IVP ONE (12:15)
[2020-12-08] MEDS ORDERED: INSULIN ASPART (NovoLOG) 100 UNIT/ML VIAL SQ ONE ×2 (12:15→14:32)
[2020-12-08] MEDS: DOXYCYCLINE 100 MG CAP PO SCH ×2 (12:20→22:34)
[2020-12-08] MEDS ORDERED: MIDAZOLAM 2 MG/2 ML VIAL ONE (12:45)
[2020-12-08] MEDS ORDERED: fentaNYL (PF) 50 MCG/ML 2 ML AMP ONE (12:45)
[2020-12-08] MEDS ORDERED: PROPOFOL 10 MG/ML 20 ML VIAL IV ONE (12:45)
[2020-12-08] MEDS ORDERED: SODIUM HYPOCHLORITE 0.5% 480 ML BOT MISCELLANE ONE (13:30)
--- NOTE | 2020-12-08 14:02 | P.OP ---
Date of Procedure: 12/08/20 Preoperative Diagnosis: Bilateral foot wounds. Postoperative Diagnosis: Same. Right foot wounds were 2 in number. First measures 8 cm x 3.5 cm x 5 mm in depth while the second measures 6.3 cm x 5 cm x 5 mm in depth. Wound of the left foot measured 14 cm x 7 cm x 9 mm in depth Procedure(s) Performed: Excisional debridement bilateral foot wounds down to muscular level Implants: None. Anesthesia: GETA Surgeon: Luis Hughes Estimated Blood Loss (ml): 10 Pathology: other (Debrided tissue) Condition: stable Disposition: no change Indications for Procedure: Patient is a 65-year-old male who had been treated as an outpatient for bilateral lower extremity foot wounds. This was complicated by his significant bilateral lower extremity edema. His wounds continue to become progressively more severe although his leg edema improved with compression therapy. Patient was admitted to the hospital yesterday and placed on IV antibiotics. Wounds of both feet are need of surgical debridement. Description of Procedure: Patient was brought the upper and placed in the supine position Mr. general inhalational anesthesia via LMA delivered by the department of anesthesiology. The patient had been receiving IV antibiotics on the floor and these were continued as scheduled. Both feet were sterilely prepped and draped in the usual manner. Beginning on the right utilizing surgical scalpel large eschar was removed from the dorsal surface of the foot at the ankle level as well as along the lateral aspect of the right foot. The wounds measured 8 x 3.5 x 0.5 cm and 6.3 x 5.0 x .5 cm respectively. No purulent drainage was retrieved however the tissues were cultured both aerobically and anaerobically. The debridement continued until all nonviable tissue was excised. This was taken down through the skin and subcutaneous fat levels down to the muscle/tendon level. A similar procedure with similar findings were noted on the left foot. The wound measured 14 cm x 7 cm x 0.9 cm. Culture of this wound was also obtained. Following this both wounds were copiously irrigated with pulse lavage. Gauze moistened with half-strength Dakin solution was applied to both wounds and both feet were wrapped. Patient tolerated procedure well and was taken to the recovery area satisfactory and stable condition.
[2020-12-08 14:18] LABS: Glucose,Whole Blood 213 mg/dL (75-99)
[2020-12-08 16:48] LABS: Glucose,Whole Blood 216 mg/dL (75-99)
--- NOTE | 2020-12-08 19:38 | PN ---
PROGRESS NOTE DATE OF SERVICE: 12/08/2020 REASON FOR FOLLOWUP: Bilateral lower extremity wounds with secondary cellulitis. INTERVAL HISTORY: The patient is currently afebrile. The patient is status post surgical debridement of bilateral foot wounds down to the muscular level. Patient tolerated the procedure. Cultures have been obtained. The patient denies having any chest pain or shortness of breath or cough. No abdominal pain or diarrhea. PHYSICAL EXAMINATION: Blood pressure 156/70 with a pulse of 63, temperature 97.6. He is 100% on 3 L nasal cannula. General description is a middle-aged male lying in bed in no distress. RESPIRATORY SYSTEM: Unlabored breathing. Clear to auscultation anteriorly. HEART: S1, S2. Regular rate and rhythm. ABDOMEN: Soft. No tenderness. Bilateral feet are currently dressed up. No obvious drainage on the dressing. LABS: Hemoglobin of 7.3, white count 20.44. BUN of 41, creatinine is 1.7. Initial culture with Streptococcus agalactiae and Enterococcus. DIAGNOSTIC IMPRESSION AND PLAN: Patient with bilateral diabetic foot wounds with secondary cellulitis. Culture showing Enterococcus and Streptococcus. Will wait for the cultures to finalize. Continue cefepime and vancomycin at this point and monitor clinical course closely. MMODL / IJN: [id number] /
[2020-12-08 20:57] LABS: Glucose,Whole Blood 300 mg/dL (75-99)
[2020-12-08] MEDS: ACETAMINOPHEN TAB 500 MG TAB PO PRN (22:33)
[2020-12-09] MEDS: SODIUM CHLORIDE 0.9% 1,000 ML IV SCH ×2 (04:31→20:11)
[2020-12-09] MEDS ORDERED: VANCOMYCIN TROUGH DUE 1 EACH MISC MISCELLANE ONE (05:00)
[2020-12-09] MEDS: LEVOTHYROXINE 100 MCG TAB PO SCH (06:18)
[2020-12-09] MEDS: VANCOMYCIN 1,500 MG in SODIUM CHLORIDE 0.9% 250 ML IVPB SCH (06:18)
[2020-12-09] MEDS: LEVOTHYROXINE 50 MCG TAB PO SCH (06:18)
[2020-12-09 07:22] LABS: Glucose,Whole Blood 274 mg/dL (75-99)
[2020-12-09] MEDS: FUROSEMIDE 20 MG TAB PO SCH (07:22)
[2020-12-09] MEDS: ASPIRIN 81 MG PO SCH (07:22)
[2020-12-09] MEDS: FENOFIBRATE 160 MG TAB PO SCH (07:23)
[2020-12-09] MEDS: LOSARTAN 50 MG TAB PO SCH (07:23)
[2020-12-09] MEDS: METOPROLOL TARTRATE 25 MG TAB PO SCH (07:23)
[2020-12-09] MEDS: ATORVASTATIN 40 MG TAB PO SCH (07:23)
[2020-12-09] MEDS: DOXYCYCLINE 100 MG CAP PO SCH ×2 (07:23→20:14)
[2020-12-09] MEDS: INSULIN ASPART (NovoLOG) 100 UNIT/ML VIAL SQ SCH ×4 (07:27→20:14)
[2020-12-09] MEDS: CEFEPIME 2 GM in SODIUM CHLORIDE 0.9% 100 ML IVPB SCH (09:39)
[2020-12-09 11:35] LABS: Glucose,Whole Blood 385 mg/dL (75-99)
--- NOTE | 2020-12-09 11:42 | P.PN ---
Subjective This is a pleasant 65-year-old male past medical history significant for coronary artery disease status post CABG, ischemic cardiomyopathy with recovered ejection fraction and status post AICD placement, peripheral artery disease with bilateral occluded anterior tibial arteries in 2017, bilateral vascular wounds, type 2 diabetes,chronic kidney disease, neuropathy of upper and lower extremities. He follows in the office with Dr. Henderson. We have been asked to see in consultation for AICD management and potential cardiac clearance for surgery. Patient is seen and examined at bedside resting comfortably, no acute distress. Patient states he was scheduled to get had generator change for his AICD however had a temperature of 101.7, the procedure was cancelled, and patient was told to present to the emergency department for further evaluation. He has been feeling sick over this past week, having high blood sugars and hav ing chills. He has had problems with ambulation and bilateral leg pain that has progressively gotten worse over the past couple years. He states the right leg is worse than his left. He follows with Dr. Ross for his vascular wounds on his bilateral legs. Echo 08/29/20: EF 50-55%. Diastolic function evaluation indicates normal diastolic function. Carotid duplex to 08/23/20- Right: irregular heterogenous plaque noted in the ICA, bulb, CCA- 50-79% stenosis. Left: irregular heterogenous plaque noted in the ICA, bulb, CCA 16-49% stenosis. 12/09/20: Patient is seen and examined at bedside, resting comfortably, no acute distress. He continues to have bilateral leg pain which is unchanged from yesterday. He denies shortness of breath, chest pain, palpitations, nausea or vomiting, abdominal pain. Vital signs BP 136/67, heart rate 65, 96% on room air, and temperature 99.5F. EKG-ventricular paced. Patient POD #1 from wound debridement. Current hospital cardiac medications include aspirin 81 mg daily, metoprolol titrate 75 mg daily, losartan 50 mg daily, Lasix 20 mg daily, atorvastatin 40 mg daily, fenofibrate 160mg daily PHYSICAL EXAMINATION CONSTITUTIONAL: No apparent distress. HEENT: Head is normocephalic. Pupils are equal, round. Sclerae anicteric. Mucous membranes of the mouth are moist. No JVD. No carotid bruit. CHEST EXAMINATION: Lungs are clear to auscultation. No chest wall tenderness is noted on palpation or with deep breathing. HEART EXAMINATION: Regular rate and rhythm. S1, S2 heard. No murmurs, gallops or rub. ABDOMEN: Soft, nontender. Positive bowel sounds. EXTREMITIES: +2 radial pulses bilaterally. +1 lower extremity edema and bilateral lower extremity pain with palpation. Bilateral lower extremity wounds covered in gauze in tape. NEUROLOGIC EXAMINATION: Patient is awake, alert and oriented x3. ASSESSMENT -Coronary artery disease status post CABG -Ischemic cardiomyopathy with recovered ejection fraction and status post AICD placement -Peripheral artery disease with bilateral occluded anterior tibial arteries in 2017 -Bilateral vascular wounds -Type 2 Diabetes -Chronic Kidney Disease PLAN -Will not proceed with AICD generator change at this time due fevers and infectious process this admission. -Continue home medication: metoprolol titrate 75 mg daily, aspirin 81mg daily, losartan 50 mg daily, Lasix 20 mg daily, atorvastatin 40 mg daily, fenofibrate 160mg daily . -We will sign off at this time. Please reach out for further questions or concerns. Nurse Practitioner note has been reviewed, I agree with a documented findings and plan of care. Patient was seen and examined. Objective - Vital Signs Vital signs: Vital Signs Temp 97.5 F L 12/09/20 07:43 Pulse 65 12/09/20 07:43 Resp 18 12/09/20 07:43 BP 136/67 12/09/20 07:43 Pulse Ox 96 12/09/20 07:43 Intake & Output 12/08/20 12/09/20 12/09/20 18:59 06:59 18:59 Intake Total 150 Output Total 460 400 500 Balance -310 -400 -500 Intake: IV 150 Output: Urine 450 400 500 Estimated Blood Loss 10 Other: Voiding Method Urinal Urinal # Voids 1 # Bowel Movements 1 - Labs CBC & Chem 7: 12/08/20 06:44 12/09/20 05:31 Labs: Abnormal Lab Results - Last 24 Hours (Table) 12/08/20 12/08/20 12/08/20 Range/Units 06:44 14:16 16:46 BUN 41.0 H (9.0-27.0) mg/dL Creatinine 1.7 H (0.6-1.5) mg/dL Est GFR (CKD-EPI)AfAm 48.3 L (60.0-200.0) Est GFR (CKD-EPI)NonAf 41.7 L (60.0-200.0) BUN/Creatinine Ratio 24.12 H (12.00-20.00) Ratio Glucose 249 H (70-110) mg/dL POC Glucose (mg/dL) 213 H 216 H (75-99) mg/dL Calcium 7.6 L (8.7-10.3) mg/dL Alkaline Phosphatase 213 H (41-126) U/L Total Protein 5.1 L (6.2-8.2) g/dL Albumin 2.50 L (3.80-4.90) g/dL Albumin/Globulin Ratio 0.96 L (1.60-3.17) g/dL 12/08/20 12/09/20 12/09/20 Range/Units 20:54 05:31 07:15 BUN (9.0-27.0) mg/dL Creatinine 1.69 H (0.6-1.5) mg/dL Est GFR (CKD-EPI)AfAm (60.0-200.0) Est GFR (CKD-EPI)NonAf (60.0-200.0) BUN/Creatinine Ratio (12.00-20.00) Ratio Glucose (70-110) mg/dL POC Glucose (mg/dL) 300 H 274 H (75-99) mg/dL Calcium (8.7-10.3) mg/dL Alkaline Phosphatase (41-126) U/L Total Protein (6.2-8.2) g/dL Albumin (3.80-4.90) g/dL Albumin/Globulin Ratio (1.60-3.17) g/dL 12/09/20 Range/Units 11:31 BUN (9.0-27.0) mg/dL Creatinine (0.6-1.5) mg/dL Est GFR (CKD-EPI)AfAm (60.0-200.0) Est GFR (CKD-EPI)NonAf (60.0-200.0) BUN/Creatinine Ratio (12.00-20.00) Ratio Glucose (70-110) mg/dL POC Glucose (mg/dL) 385 H (75-99) mg/dL Calcium (8.7-10.3) mg/dL Alkaline Phosphatase (41-126) U/L Total Protein (6.2-8.2) g/dL Albumin (3.80-4.90) g/dL Albumin/Globulin Ratio (1.60-3.17) g/dL Microbiology - Last 24 Hours (Table) 12/06/20 11:15 Gram Stain - Preliminary Foot - Right Wound Culture - Preliminary Strep agalactiae - (group b) Enterococcus faecalis 12/06/20 08:04 Blood Culture - Preliminary Blood No Growth after 72 hours 12/06/20 07:51 Blood Culture - Preliminary Blood No Growth after 72 hours 12/08/20 13:19 Gram Stain - Preliminary Foot - Right Wound Culture - Preliminary 12/08/20 13:19 Gram Stain - Preliminary Foot - Left Wound Culture - Preliminary 12/08/20 13:19 Anaerobic Culture - Preliminary Foot - Right 12/08/20 13:19 Anaerobic Culture - Preliminary Foot - Left 12/06/20 14:35 Anaerobic Culture - Preliminary Foot - Right
--- NOTE | 2020-12-09 12:02 | P.PN ---
Subjective Progress Note Date: 12/09/20 Principal diagnosis: Bilateral lower extremity wounds Patient is seen and examined sitting up in his recliner washing. He is status postop day #1 for bilateral lower extremity excisional debridement. He states he had no acute changes through the night. Denies any fever or chills. Objective - Vital Signs Vital signs: Vital Signs Temp 97.5 F L 12/09/20 07:43 Pulse 65 12/09/20 07:43 Resp 18 12/09/20 07:43 BP 136/67 12/09/20 07:43 Pulse Ox 96 12/09/20 07:43 Intake & Output 12/08/20 12/09/20 12/09/20 18:59 06:59 18:59 Intake Total 150 Output Total 460 400 500 Balance -310 -400 -500 Intake: IV 150 Output: Urine 450 400 500 Estimated Blood Loss 10 Other: Voiding Method Urinal Urinal # Voids 1 # Bowel Movements 1 - Exam General appearance: The patient is alert, oriented, in no acute distress. HET: Head is normocephalic and atraumatic. Pupils are equal and reactive. Oropharynx is clear without lesions. Neck: Supple without lymphadenopathy. Trachea midline. Heart: S1 S2. Regular rate and rhythm. Lungs: Clear to auscultation. Abdomen: Soft, nontender, nondistended. Extremities: Bilateral lower extremity edema. Bilateral lower extremities with dressings clean dry and intact. Neurological: No focal deficits. Strength and sensation are grossly intact. - Labs CBC & Chem 7: 12/08/20 06:44 12/09/20 05:31 Labs: Abnormal Lab Results - Last 24 Hours (Table) 12/08/20 12/08/20 12/08/20 Range/Units 06:44 11:32 14:16 BUN 41.0 H (9.0-27.0) mg/dL Creatinine 1.7 H (0.6-1.5) mg/dL Est GFR (CKD-EPI)AfAm 48.3 L (60.0-200.0) Est GFR (CKD-EPI)NonAf 41.7 L (60.0-200.0) BUN/Creatinine Ratio 24.12 H (12.00-20.00) Ratio Glucose 249 H (70-110) mg/dL POC Glucose (mg/dL) 233 H 213 H (75-99) mg/dL Calcium 7.6 L (8.7-10.3) mg/dL Alkaline Phosphatase 213 H (41-126) U/L Total Protein 5.1 L (6.2-8.2) g/dL Albumin 2.50 L (3.80-4.90) g/dL Albumin/Globulin Ratio 0.96 L (1.60-3.17) g/dL 12/08/20 12/08/20 12/09/20 Range/Units 16:46 20:54 05:31 BUN (9.0-27.0) mg/dL Creatinine 1.69 H (0.6-1.5) mg/dL Est GFR (CKD-EPI)AfAm (60.0-200.0) Est GFR (CKD-EPI)NonAf (60.0-200.0) BUN/Creatinine Ratio (12.00-20.00) Ratio Glucose (70-110) mg/dL POC Glucose (mg/dL) 216 H 300 H (75-99) mg/dL Calcium (8.7-10.3) mg/dL Alkaline Phosphatase (41-126) U/L Total Protein (6.2-8.2) g/dL Albumin (3.80-4.90) g/dL Albumin/Globulin Ratio (1.60-3.17) g/dL 12/09/20 Range/Units 07:15 BUN (9.0-27.0) mg/dL Creatinine (0.6-1.5) mg/dL Est GFR (CKD-EPI)AfAm (60.0-200.0) Est GFR (CKD-EPI)NonAf (60.0-200.0) BUN/Creatinine Ratio (12.00-20.00) Ratio Glucose (70-110) mg/dL POC Glucose (mg/dL) 274 H (75-99) mg/dL Calcium (8.7-10.3) mg/dL Alkaline Phosphatase (41-126) U/L Total Protein (6.2-8.2) g/dL Albumin (3.80-4.90) g/dL Albumin/Globulin Ratio (1.60-3.17) g/dL Microbiology - Last 24 Hours (Table) 12/06/20 11:15 Gram Stain - Preliminary Foot - Right Wound Culture - Preliminary Strep agalactiae - (group b) Enterococcus faecalis 12/06/20 08:04 Blood Culture - Preliminary Blood No Growth after 72 hours 12/06/20 07:51 Blood Culture - Preliminary Blood No Growth after 72 hours 12/08/20 13:19 Gram Stain - Preliminary Foot - Right Wound Culture - Preliminary 12/08/20 13:19 Gram Stain - Preliminary Foot - Left Wound Culture - Preliminary 12/08/20 13:19 Anaerobic Culture - Preliminary Foot - Right 12/08/20 13:19 Anaerobic Culture - Preliminary Foot - Left 12/06/20 14:35 Anaerobic Culture - Preliminary Foot - Right Assessment and Plan Assessment: 1. Post op day #1 bilateral lower extremity wound debridement 2. Bilateral lower extremity wounds 3. Fever 4. Diabetes mellitus 5. Neuropathy 6. Ischemic cardiomyopathy 7. History of intermittent claudication/peripheral arterial disease 8. Chronic anemia 9. Chronic kidney disease Plan: 1. Continue IV antibiotics per infectious disease 2. Dressing changes every 12 hours, with Dakin solution then saline wet to dry 3. Continue current medical treatment 4. Cardiology on consult 5. Physical therapy ordered, recommend non-weight bearing on left foot and may have weight bearing on right heal 6. Consult case management for ECF placement The impression and plan of care has been dictated as directed. Dr. Hughes I performed a history and examination of this patient, discussed the same with the dictator. I agree with the dictator's note ,documented as a scribe. Any additional findings or plans will be noted.
--- NOTE | 2020-12-09 15:50 | P.PN ---
Subjective Progress Note Date: 12/09/20 Principal diagnosis: sepsis involving bilateral foot infection and cellulitis Atypical pneumonia Chronic kidney disease Uncontrolled diabetes and neuropathy along with vasculopathy hypertension hypertensive cardiovascular disease Dyslipidemia Morbid obesity and likely obstructive sleep apnea 12/09/2020, patient seen eval reexamined labs reviewed medications reviewed care plan discussed, on room air oxygen saturation 100%, patient remains afebrile and hemodynamically stable with slightly low blood pressure, this is a 65-year-old morbidly obese male with the prior medical history of type 2 diabetes mellitus with his complication and sequelae including peripheral pablo rial disease neuropathy and chronic leg wounds patient also has chronic renal failure, patient presented into the hospital with the increased blood sugar, also has a problem of shortness of breath had fever of 101, denies any cough or sputum production denies any chest pain, Dr. Ross from vascular surgery has been following him for lower extremity woundshim a patient used to smoke but quit several years ago he used to smoke 2 packs per day quit about 10-14 years, his prior history also significant for bypass surgery and stent placement, his covid 19 testing is negative, white cell count is 21,900, hemoglobin is 8.4, BUN/creatinine 53 and 1.9,left foot x-ray noted to have Charcot-type arthropathy with soft tissue swelling, chest x-ray prominent interstitium/infiltrate,subtle pneumonia cannot be excludedThomas patient is on Vanco along with cephapirin wound care on consult Objective - Vital Signs Vital signs: Vital Signs Temp 97.5 F L 12/09/20 14:00 Pulse 58 L 12/09/20 14:00 Resp 18 12/09/20 14:00 BP 92/52 12/09/20 14:00 Pulse Ox 100 12/09/20 14:00 Intake & Output 12/08/20 12/09/20 12/09/20 18:59 06:59 18:59 Intake Total 150 Output Total 460 400 500 Balance -310 -400 -500 Intake: IV 150 Output: Urine 450 400 500 Estimated Blood Loss 10 Other: Voiding Method Urinal Urinal # Voids 1 # Bowel Movements 1 - Exam - Constitutional General appearance: disheveled, morbidly obese - EENT Eyes: PERRLA Ears: bilateral: normal - Neck Neck: normal ROM Carotids: bilateral: upstroke normal - Respiratory Respiratory: bilateral: diminished - Cardiovascular Rhythm: regular Heart sounds: normal: S1, S2 - Gastrointestinal General gastrointestinal: normal bowel sounds - Integumentary bilateral foot infection with left foot more than the right side - Neurologic Neurologic: CNII-XII intact - Musculoskeletal Musculoskeletal: gait normal, generalized weakness, strength equal bilaterally - Psychiatric Psychiatric: A&O x's 3, appropriate affect, intact judgment & insight - Labs CBC & Chem 7: 12/08/20 06:44 12/09/20 05:31 Labs: Abnormal Lab Results - Last 24 Hours (Table) 12/08/20 12/08/20 12/09/20 Range/Units 16:46 20:54 05:31 Creatinine 1.69 H (0.66-1.25) mg/dL POC Glucose (mg/dL) 216 H 300 H (75-99) mg/dL 12/09/20 12/09/20 Range/Units 07:15 11:31 Creatinine (0.66-1.25) mg/dL POC Glucose (mg/dL) 274 H 385 H (75-99) mg/dL Microbiology - Last 24 Hours (Table) 12/06/20 11:15 Gram Stain - Preliminary Foot - Right Wound Culture - Preliminary Strep agalactiae - (group b) Enterococcus faecalis 12/06/20 08:04 Blood Culture - Preliminary Blood No Growth after 72 hours 12/06/20 07:51 Blood Culture - Preliminary Blood No Growth after 72 hours 12/08/20 13:19 Gram Stain - Preliminary Foot - Right Wound Culture - Preliminary 12/08/20 13:19 Gram Stain - Preliminary Foot - Left Wound Culture - Preliminary 12/08/20 13:19 Anaerobic Culture - Preliminary Foot - Right 12/08/20 13:19 Anaerobic Culture - Preliminary Foot - Left 12/06/20 14:35 Anaerobic Culture - Preliminary Foot - Right Assessment and Plan Assessment: sepsis involving bilateral foot infection and cellulitis Atypical pneumonia Chronic kidney disease Uncontrolled diabetes and neuropathy along with vasculopathy hypertension hypertensive cardiovascular disease Dyslipidemia Morbid obesity and likely obstructive sleep apnea Plan: continue deep breathing exercise incentive spirometry Follow clinical course closely with antibiotics continue oral doxycycline 4 feet to 10 days Patient will need a sleep study as outpatient Further recommendations pending plan of care as per clinical response of patient Time with Patient: Greater than 30
--- NOTE | 2020-12-09 16:36 | PN ---
PROGRESS NOTE DATE OF SERVICE: 12/09/2020 REASON FOR FOLLOWUP: Bilateral foot ulcers and cellulitis. INTERVAL HISTORY: The patient is currently afebrile. The patient is breathing comfortably. The patient denies having any chest pain or shortness of breath or cough. No nausea, no vomiting, no abdominal pain or any worsening pain to the bilateral foot areas. PHYSICAL EXAMINATION: Blood pressure 92/52 with a pulse of 58, temperature 97.5. He is 100% on room air. General description is a middle-aged male lying in bed in no distress. RESPIRATORY SYSTEM: Unlabored breathing. Clear to auscultation anteriorly. HEART: S1, S2. Regular rate and rhythm. ABDOMEN: Soft. No tenderness. currently dressed up. No obvious drainage on the dressing. LABS: Vancomycin trough is 15.5, creatinine 1.69. DIAGNOSTIC IMPRESSION AND PLAN: Patient with bilateral foot ulcers with cellulitis, left greater than right. Local culture has been enterococcus and strep. Antibiotic will be adjusted to Unasyn. Discontinue vancomycin and cefepime. He likely will need a PICC line for outpatient antibiotic therapy. Continue supportive care. MMODL / IJN: [id number] /
[2020-12-09 16:48] LABS: Glucose,Whole Blood 372 mg/dL (75-99)
[2020-12-09] MEDS: AMPICILLIN-SULBACTAM 3 GM in SODIUM CHLORIDE 0.9% 100 ML IVPB SCH ×2 (17:18→23:03)
[2020-12-09 20:13] LABS: Glucose,Whole Blood 321 mg/dL (75-99)
[2020-12-09] MEDS: INSULIN DETEMIR (LEVEMIR) 100 UNIT/ML SYR SQ SCH (20:14)
--- NOTE | 2020-12-09 21:49 | PN ---
PROGRESS NOTE This patient is a white male, status post debridement of wounds in his legs bilaterally. No nausea, vomiting. No chest pain, shortness of breath. Temperature 97.5, 100% on room air. Blood pressure is 90s over 50s. Pulse ox 58. CARDIAC: Lungs clear. HEART: S1, S2. ABDOMEN: Soft. Legs are dressed with no obvious bleeding. He is nonweightbearing at this time, so discussion for possible senior care has been given by community development planner and myself. Remains on IV vancomycin. Left greater than right. Local culture has been Enterococcus and Streptococcus. Unasyn antibiotics are being given at this time. He will need a PICC line for outpatient antibiotics and nonweightbearing with senior care placement. MMODL / IJN: [id number] /
[2020-12-09] MEDS: CALCIUM CARBONATE 500 MG CHEWABLE PO PRN (21:53)
[2020-12-10] MEDS: AMPICILLIN-SULBACTAM 3 GM in SODIUM CHLORIDE 0.9% 100 ML IVPB SCH ×4 (05:37→23:11)
[2020-12-10] MEDS: LEVOTHYROXINE 100 MCG TAB PO SCH (05:37)
[2020-12-10] MEDS: LEVOTHYROXINE 50 MCG TAB PO SCH (05:37)
[2020-12-10 06:32] LABS: ALT 18 U/L (4-49); AST 28 U/L (17-59); African American GFR (CKD) 49 (>60 ml/min/1.73 sqM); Albumin 2.2 g/dL (3.5-5.0); Albumin/Globulin Ratio 0.7; Alkaline Phosphatase 235 U/L (38-126); Anion Gap 8 mmol/L; Blood Urea Nitrogen 43 mg/dL (9-20); Calcium 7.8 mg/dL (8.4-10.2); Carbon Dioxide 27 mmol/L (22-30); Chloride 103 mmol/L (98-107); Globulin 3.2 g/dL; Glucose 185 mg/dL (74-99); Non-African American GFR(CKD) 42 (>60 ml/min/1.73 sqM); Potassium 4.2 mmol/L (3.5-5.1); Sodium 138 mmol/L (137-145); Total Bilirubin 0.5 mg/dL (0.2-1.3); Total Protein 5.4 g/dL (6.3-8.2)
[2020-12-10 06:38] LABS: Basophils % (A) 0 %; Eosinophils # (A) 0.3 k/uL (0-0.7); Eosinophils % (A) 1 %; HCT 26.8 % (39.0-53.0); HGB 8.2 gm/dL (13.0-17.5); Hypochromasia Marked; Lymphocytes # (A) 1.4 k/uL (1.0-4.8); Lymphocytes % (A) 7 %; MCH 24.3 pg (25.0-35.0); MCHC 30.6 g/dL (31.0-37.0); MCV 79.3 fL (80.0-100.0); Mean Platelet Volume 7.6; Monocytes # (A) 0.6 k/uL (0-1.0); Monocytes % (A) 3 %; Neutrophils # (A) 16.2 k/uL (1.3-7.7); Neutrophils % (A) 87 %; Platelet Count 572 k/uL (150-450); RBC 3.37 m/uL (4.30-5.90); RDW 14.6 % (11.5-15.5); WBC 18.6 k/uL (3.8-10.6)
[2020-12-10 07:06] LABS: Glucose,Whole Blood 161 mg/dL (75-99)
[2020-12-10] MEDS: INSULIN ASPART (NovoLOG) 100 UNIT/ML VIAL SQ SCH ×4 (07:23→21:21)
[2020-12-10] MEDS: FENOFIBRATE 160 MG TAB PO SCH (07:24)
[2020-12-10] MEDS: DOXYCYCLINE 100 MG CAP PO SCH ×2 (07:24→21:21)
[2020-12-10] MEDS: ASPIRIN 81 MG PO SCH (07:24)
[2020-12-10] MEDS: METOPROLOL TARTRATE 25 MG TAB PO SCH (07:24)
[2020-12-10] MEDS: FUROSEMIDE 20 MG TAB PO SCH (07:24)
[2020-12-10] MEDS: LOSARTAN 50 MG TAB PO SCH (07:24)
[2020-12-10] MEDS: ATORVASTATIN 40 MG TAB PO SCH (07:24)
[2020-12-10] MEDS: SODIUM CHLORIDE 0.9% 1,000 ML IV SCH ×2 (07:28→23:11)
[2020-12-10 11:27] LABS: Glucose,Whole Blood 137 mg/dL (75-99)
--- NOTE | 2020-12-10 11:54 | PN ---
PROGRESS NOTE 65-year-old white male continues to have bilateral leg pain, status post debridement. He was told he is nonweightbearing, the note says weightbearing on the right heel only. He agreed to go to possibly a rehab center for 1 week. He is ventricular paced from pacemaker. Cardiology recesses medications. Pulmonary has him on doxycycline for 10 days for possible pneumonia. CARDIOVASCULAR: S1, S2. Lungs are clear. GI soft. HEMATOLOGY: Negative Homans. NEUROLOGIC: Cranial nerves are intact. He is status post CABG, ischemic cardiomyopathy, PAD, occluded anterior tibial arteries 2016, bilateral vascular wounds, type 2 diabetes mellitus, chronic renal disease. They are not going to do an ICD generator change at this time. Continue metoprolol, aspirin, losartan, Lasix, atorvastatin, fenofibrate, and continue doxycycline for 10 days for pneumonia, possibly outpatient antibiotics. Await for cultures to come back and decide to go the longterm or do wound care at the wound clinic and go home. Await for Dr. Bustamante's recommendations. He has got strep agalactiae and Enterococcus faecalis and Staph aureus possibly we will have to determine if he can take an oral antibiotic or he will need IV antibiotics. Await for Dr. Bustamante's recommendations. MMODL / IJN: [id number] /
[2020-12-10 16:57] LABS: Glucose,Whole Blood 140 mg/dL (75-99)
[2020-12-10 20:26] LABS: Glucose,Whole Blood 166 mg/dL (75-99)
[2020-12-10] MEDS: INSULIN DETEMIR (LEVEMIR) 100 UNIT/ML SYR SQ SCH (21:21)
--- NOTE | 2020-12-10 22:34 | PN ---
PROGRESS NOTE DATE OF SERVICE: 12/10/2020 REASON FOR FOLLOWUP: Bilateral diabetic ulcer and a colitis. INTERVAL HISTORY: The patient is currently afebrile. Patient is breathing comfortably. The patient denies having any chest pain. No shortness of breath or cough. No abdominal pain or any worsening pain to the lower extremity wound area. PHYSICAL EXAMINATION: Blood pressure 110/59 with a pulse of 72, temperature of 97.4. He is 97% on room air. General description is a middle aged male lying in bed in no distress. Respiratory system: Unlabored breathing, clear to auscultation anteriorly heart is S1, S2. Regular. ABDOMEN: Soft, no tenderness. Bilateral foot wounds are currently dressed. No obvious drainage on the dressing. LABS: Hemoglobin 8.8, white count 18.6, creatinine 1.66. DIAGNOSTIC IMPRESSION AND PLAN: Patient with bilateral lower extremity wound with secondary cellulitis, left greater than right. Culture positive for strep, MSSA, Enterococcus faecalis. Patient covered with Unasyn and Zosyn infection will benefit from outpatient antibiotic therapy. This was discussed with the admitting physician. Continue supportive care. MMODL / IJN: [id number] /
[2020-12-11] MEDS: AMPICILLIN-SULBACTAM 3 GM in SODIUM CHLORIDE 0.9% 100 ML IVPB SCH ×4 (05:40→23:14)
[2020-12-11] MEDS: LEVOTHYROXINE 50 MCG TAB PO SCH (05:40)
[2020-12-11] MEDS: LEVOTHYROXINE 100 MCG TAB PO SCH (05:42)
[2020-12-11] MEDS ORDERED: DEXTROSE 50% SYRINGE 50 ML IVP ONE (06:54)
[2020-12-11 06:55] LABS: Glucose,Whole Blood 30 mg/dL (75-99)
[2020-12-11] MEDS: INSULIN ASPART (NovoLOG) 100 UNIT/ML VIAL SQ SCH ×4 (07:01→21:10)
[2020-12-11 07:10] LABS: Glucose,Whole Blood 125 mg/dL (75-99)
[2020-12-11] MEDS: SODIUM CHLORIDE 0.9% 1,000 ML IV SCH ×2 (07:43→23:14)
[2020-12-11] MEDS: ATORVASTATIN 40 MG TAB PO SCH (07:44)
[2020-12-11] MEDS: FENOFIBRATE 160 MG TAB PO SCH (07:44)
[2020-12-11] MEDS: DOXYCYCLINE 100 MG CAP PO SCH ×2 (07:44→21:10)
[2020-12-11] MEDS: ASPIRIN 81 MG PO SCH (07:44)
[2020-12-11] MEDS: METOPROLOL TARTRATE 25 MG TAB PO SCH (07:44)
[2020-12-11] MEDS: LOSARTAN 50 MG TAB PO SCH (07:45)
[2020-12-11] MEDS: FUROSEMIDE 20 MG TAB PO SCH (07:45)
[2020-12-11 08:59] LABS: Basophils # (A) 0.05 X 10*3/uL (0.00-0.10); Basophils % (A) 0.3 %; Eosinophils # (A) 0.29 X 10*3/uL (0.04-0.35); Eosinophils % (A) 1.5 %; HCT 22.8 % (39.6-50.0); Lymphocytes # (A) 1.84 X 10*3/uL (0.90-5.00); Lymphocytes % (A) 9.4 %; MCH 24.1 pg (27.0-32.0); MCHC 30.7 g/dL (32.0-37.0); MCV 78.4 fL (80.0-97.0); Mean Platelet Volume 10.4 fL (9.5-12.2); Monocytes # (A) 1.29 X 10*3/uL (0.20-1.00); Monocytes % (A) 6.6 %; Neutrophils % (A) 78.5 %; Platelet Count 555 X 10*3/uL (140-440); RBC 2.91 X 10*6/uL (4.40-5.60); RDW 16.1 % (11.5-14.5)
[2020-12-11 09:38] LABS: African American GFR (CKD) 61.1 (60.0-200.0); Albumin 2.4 g/dL (3.80-4.90); Albumin/Globulin Ratio 0.92 (1.60-3.17); Anion Gap 4.8 mmol/L (4.00-12.00); Calcium 7.8 mg/dL (8.7-10.3); Carbon Dioxide 29.2 mmol/L (21.6-31.8); Globulin 2.6 g/dL (1.6-3.3); Non-African American GFR(CKD) 52.7 (60.0-200.0); Potassium 3.9 mmol/L (3.5-5.5); Total Bilirubin 0.4 mg/dL (0.2-1.2)
[2020-12-11 11:33] LABS: Glucose,Whole Blood 77 mg/dL (75-99)
--- NOTE | 2020-12-11 14:21 | PN ---
PROGRESS NOTE SUBJECTIVE: 65-year-old white male, status post debridement, severe wound infections, PAD to the legs. His left foot still has some necrotic material all over and on exam. I told him and his on the phone that he is high risk for an amputation of his left foot due to severe infection that appears to be deep. Most of the posterior dorsum of the foot is necrotic and going deep into the foot. He has redness throughout the entire foot and still has some necrotic looking material and some black ischemic areas throughout the wound area covering maybe 40% of the dorsum of his foot. Long-term prognosis is poor. He wants to go home and to rehab center. He has weightbearing on his right heel. He is going to try to ambulate with physical therapy. We are going to consult Dr. Armenta for debridement of the foot prior to going home. Antibiotics are pending Dr. Bustamante's recommendations. He will need outpatient IV antibiotics. Hopefully set up at home. As mentioned above, he has high prognosis is for amputation of his foot which is necrotic through the whole wound which is deep into the foot and 40% of the foot. Cardiovascular: S1-S2. Lungs clear. GI soft. ASSESSMENT: 1. Osteomyelitis. 2. Severe wound infection. 3. Peripheral arterial disease to bilateral feet. 4. Diabetic wound infection. He had low blood sugars as well as long-acting insulin is going to be held today. Continue with Accu-Chek protocol. Continue with other home medications. Prognosis is guarded. Please see further orders. MMODL / IJN: [id number] /
[2020-12-11 16:56] LABS: Glucose,Whole Blood 142 mg/dL (75-99)
--- NOTE | 2020-12-11 18:45 | PN ---
PROGRESS NOTE DATE OF SERVICE: 12/11/2020 REASON FOR FOLLOWUP: Left foot ulcer and cellulitis. INTERVAL HISTORY: Patient is currently afebrile. The patient is breathing comfortably. Denies having any chest pain, shortness of breath or cough. No abdominal pain or pain to the left foot area. PHYSICAL EXAMINATION: Blood 103/61, pulse of 87, temperature 98.5. He is 99% on room air. General description: The patient is a middle-aged male up in the bed in no distress. Respiratory system: Unlabored breathing, clear to auscultation anteriorly. Heart S1, S2. Regular rate and rhythm. Abdomen soft, no tenderness. Left foot plantar area did have a wound with slough tissue, some necrotic area. Swelling and redness has improved. LABS: Hemoglobin is 7, white count 19.60, BUN of 35, creatinine 1.4. DIAGNOSTIC IMPRESSION AND PLAN: Patient with left foot ulcer and cellulitis. Culture with multiple pathogens including MSSA strep and Streptococcus and Enterococcus faecalis. Patient is covered with Unasyn. Still has worsening of the white count could be related to the likely ischemic changes seen and may benefit from a repeat debridement. Local care to continue as ordered and the patient is covered with Unasyn. Continue supportive care. MMODL / IJN: [id number] /
[2020-12-11 20:11] LABS: Glucose,Whole Blood 209 mg/dL (75-99)
[2020-12-12] MEDS: LEVOTHYROXINE 50 MCG TAB PO SCH (05:55)
[2020-12-12] MEDS: AMPICILLIN-SULBACTAM 3 GM in SODIUM CHLORIDE 0.9% 100 ML IVPB SCH ×3 (05:55→17:06)
[2020-12-12] MEDS: LEVOTHYROXINE 100 MCG TAB PO SCH (05:55)
[2020-12-12 07:10] LABS: Glucose,Whole Blood 223 mg/dL (75-99)
[2020-12-12] MEDS: INSULIN ASPART (NovoLOG) 100 UNIT/ML VIAL SQ SCH ×4 (07:49→21:35)
[2020-12-12] MEDS: DOXYCYCLINE 100 MG CAP PO SCH ×2 (07:49→21:35)
[2020-12-12] MEDS: LOSARTAN 50 MG TAB PO SCH (07:49)
[2020-12-12] MEDS: FENOFIBRATE 160 MG TAB PO SCH (07:49)
[2020-12-12] MEDS: FUROSEMIDE 20 MG TAB PO SCH (07:49)
[2020-12-12] MEDS: METOPROLOL TARTRATE 25 MG TAB PO SCH (07:49)
[2020-12-12] MEDS: ATORVASTATIN 40 MG TAB PO SCH (07:49)
[2020-12-12 09:49] LABS: African American GFR (CKD) 61.1 (60.0-200.0); Albumin 2.3 g/dL (3.80-4.90); Albumin/Globulin Ratio 0.85 (1.60-3.17); Anion Gap 7.6 mmol/L (4.00-12.00); BUN/Creat Ratio 20.71 Ratio (12.00-20.00); Calcium 7.8 mg/dL (8.7-10.3); Carbon Dioxide 29.4 mmol/L (21.6-31.8); Globulin 2.7 g/dL (1.6-3.3); Non-African American GFR(CKD) 52.7 (60.0-200.0); Potassium 5.5 mmol/L (3.5-5.5); Total Bilirubin 0.5 mg/dL (0.2-1.2)
[2020-12-12] MEDS: ASPIRIN 81 MG PO SCH (10:05)
[2020-12-12 10:50] LABS: Basophils # (A) 0.07 X 10*3/uL (0.00-0.10); Basophils % (A) 0.4 %; HCT 22.8 % (39.6-50.0); HGB 6.8 g/dL (13.0-17.0); Lymphocytes # (A) 1.91 X 10*3/uL (0.90-5.00); Lymphocytes % (A) 9.9 %; MCH 23.9 pg (27.0-32.0); MCHC 29.8 g/dL (32.0-37.0); Mean Platelet Volume 10.3 fL (9.5-12.2); Monocytes # (A) 1.35 X 10*3/uL (0.20-1.00); Neutrophils # (A) 15.21 X 10*3/uL (1.80-7.70); Neutrophils % (A) 78.3 %; Platelet Count 547 X 10*3/uL (140-440); RBC 2.85 X 10*6/uL (4.40-5.60); RDW 16.2 % (11.5-14.5); WBC 19.39 X 10*3/uL (4.50-10.00)
--- NOTE | 2020-12-12 11:05 | P.PN ---
Subjective Progress Note Date: 12/12/20 Principal diagnosis: sepsis involving bilateral foot infection and cellulitis Atypical pneumonia Chronic kidney disease Uncontrolled diabetes and neuropathy along with vasculopathy hypertension hypertensive cardiovascular disease Dyslipidemia Morbid obesity and likely obstructive sleep apnea 12/12/2020, patient seen eval examined during the rounds labs reviewed medications reviewed care plan discussed, respiratory status the remains stable patient sitting upright on the bed breathing comfortably, patient is scheduled for PICC line later on today also supposed to get wound debridement as well, denies any cough or sputum production, 12/09/2020, patient seen eval reexamined labs reviewed medications reviewed care plan discussed, on room air oxygen saturation 100%, patient remains afebrile and hemodynamically stable with slightly low blood pressure, this is a 65-year-old morbidly obese male with the prior medical history of type 2 diabetes mellitus with his complication and sequelae including peripheral arterial disease neuropathy and chronic leg wounds patient also has chronic renal failure, patient presented into the hospital with the increased blood sugar, also has a problem of shortness of breath had fever of 101, denies any cough or sputum production denies any chest pain, Dr. Ross from vascular surgery has been following him for lower extremity woundshim a patient used to smoke but quit several years ago he used to smoke 2 packs per day quit about 10- 14 years, his prior history also significant for bypass surgery and stent placement, his covid 19 testing is negative, white cell count is 21,900, hemoglobin is 8.4, BUN/creatinine 53 and 1.9,left foot x-ray noted to have Charcot-type arthropathy with soft tissue swelling, chest x-ray prominent interstitium/infiltrate,subtle pneumonia cannot be excludedThomas patient is on Vanco along with cephapirin wound care on consult Objective - Vital Signs Vital signs: Vital Signs Temp 98.8 F 12/12/20 07:37 Pulse 91 12/12/20 07:37 Resp 16 12/12/20 07:37 BP 128/63 12/12/20 07:37 Pulse Ox 100 12/12/20 07:37 Intake & Output 12/11/20 12/12/20 12/12/20 18:59 06:59 18:59 Intake Total 1080 Output Total 600 325 Balance 480 -325 Intake: Oral 1080 Output: Urine 600 325 Other: # Bowel Movements 1 - Exam - Constitutional General appearance: disheveled, morbidly obese - EENT Eyes: PERRLA Ears: bilateral: normal - Neck Neck: normal ROM Carotids: bilateral: upstroke normal - Respiratory Respiratory: bilateral: diminished - Cardiovascular Rhythm: regular Heart sounds: normal: S1, S2 - Gastrointestinal General gastrointestinal: normal bowel sounds - Integumentary bilateral foot infection with left foot more than the right side - Neurologic Neurologic: CNII-XII intact - Musculoskeletal Musculoskeletal: gait normal, generalized weakness, strength equal bilaterally - Psychiatric Psychiatric: A&O x's 3, appropriate affect, intact judgment & insight - Labs CBC & Chem 7: 12/12/20 05:56 12/12/20 05:56 Labs: Abnormal Lab Results - Last 24 Hours (Table) 12/11/20 12/11/20 12/11/20 Range/Units 05:19 05:19 16:55 WBC (4.50-10.00) X 10*3/uL RBC (4.40-5.60) X 10*6/uL Hgb (13.0-17.0) g/dL Hct (39.6-50.0) % MCH (27.0-32.0) pg MCHC (32.0-37.0) g/dL RDW (11.5-14.5) % Plt Count (140-440) X 10*3/uL Immature Gran # (0.00-0.04) X 10*3/uL Neutrophils # (1.80-7.70) X 10*3/uL Monocytes # (0.20-1.00) X 10*3/uL BUN (9.0-27.0) mg/dL Est GFR (CKD-EPI)NonAf (60.0-200.0) BUN/Creatinine Ratio (12.00-20.00) Ratio Glucose (70-110) mg/dL POC Glucose (mg/dL) 142 H (75-99) mg/dL Calcium (8.7-10.3) mg/dL Alkaline Phosphatase (41-126) U/L C-Reactive Protein 11.4 H (0.0-0.8) mg/dL Total Protein (6.2-8.2) g/dL Albumin (3.80-4.90) g/dL Albumin/Globulin Ratio (1.60-3.17) g/dL Procalcitonin 0.42 H (0.02-0.09) ng/mL 12/11/20 12/12/20 12/12/20 Range/Units 20:08 05:56 05:56 WBC 19.39 H (4.50-10.00) X 10*3/uL RBC 2.85 L (4.40-5.60) X 10*6/uL Hgb 6.8 L* (13.0-17.0) g/dL Hct 22.8 L (39.6-50.0) % MCH 23.9 L (27.0-32.0) pg MCHC 29.8 L (32.0-37.0) g/dL RDW 16.2 H (11.5-14.5) % Plt Count 547 H (140-440) X 10*3/uL Immature Gran # 0.65 H (0.00-0.04) X 10*3/uL Neutrophils # 15.21 H (1.80-7.70) X 10*3/uL Monocytes # 1.35 H (0.20-1.00) X 10*3/uL BUN 29.0 H (9.0-27.0) mg/dL Est GFR (CKD-EPI)NonAf 52.7 L (60.0-200.0) BUN/Creatinine Ratio 20.71 H (12.00-20.00) Ratio Glucose 222 H (70-110) mg/dL POC Glucose (mg/dL) 209 H (75-99) mg/dL Calcium 7.8 L (8.7-10.3) mg/dL Alkaline Phosphatase 213 H (41-126) U/L C-Reactive Protein (0.0-0.8) mg/dL Total Protein 5.0 L (6.2-8.2) g/dL Albumin 2.30 L (3.80-4.90) g/dL Albumin/Globulin Ratio 0.85 L (1.60-3.17) g/dL Procalcitonin (0.02-0.09) ng/mL 12/12/20 Range/Units 07:03 WBC (4.50-10.00) X 10*3/uL RBC (4.40-5.60) X 10*6/uL Hgb (13.0-17.0) g/dL Hct (39.6-50.0) % MCH (27.0-32.0) pg MCHC (32.0-37.0) g/dL RDW (11.5-14.5) % Plt Count (140-440) X 10*3/uL Immature Gran # (0.00-0.04) X 10*3/uL Neutrophils # (1.80-7.70) X 10*3/uL Monocytes # (0.20-1.00) X 10*3/uL BUN (9.0-27.0) mg/dL Est GFR (CKD-EPI)NonAf (60.0-200.0) BUN/Creatinine Ratio (12.00-20.00) Ratio Glucose (70-110) mg/dL POC Glucose (mg/dL) 223 H (75-99) mg/dL Calcium (8.7-10.3) mg/dL Alkaline Phosphatase (41-126) U/L C-Reactive Protein (0.0-0.8) mg/dL Total Protein (6.2-8.2) g/dL Albumin (3.80-4.90) g/dL Albumin/Globulin Ratio (1.60-3.17) g/dL Procalcitonin (0.02-0.09) ng/mL Microbiology - Last 24 Hours (Table) 12/06/20 07:51 Blood Culture - Final Blood No Growth after 144 hours 12/06/20 08:04 Blood Culture - Final Blood No Growth after 144 hours 12/08/20 13:19 Gram Stain - Final Foot - Right Wound Culture - Final Strep agalactiae - (group b) Staphylococcus aureus 12/08/20 13:19 Gram Stain - Final Foot - Left Wound Culture - Final Strep agalactiae - (group b) Staphylococcus aureus 12/08/20 13:19 Anaerobic Culture - Final Foot - Left Anaerobic Gram Positive Cocci 12/06/20 14:35 Anaerobic Culture - Final Foot - Right Anaerobic Gm Negative Bacilli Anaerobic Gm Negative Bacilli#2 Assessment and Plan Assessment: sepsis involving bilateral foot infection and cellulitis Atypical pneumonia Chronic kidney disease Uncontrolled diabetes and neuropathy along with vasculopathy hypertension hypertensive cardiovascular disease Dyslipidemia Morbid obesity and likely obstructive sleep apnea Plan: continue deep breathing exercise incentive spirometry Follow clinical course closely with antibiotics continue oral doxycycline 4 feet to 10 days Patient will need a sleep study as outpatient Further recommendations pending plan of care as per clinical response of patient Time with Patient: Greater than 30
[2020-12-12 11:21] LABS: Glucose,Whole Blood 364 mg/dL (75-99)
--- NOTE | 2020-12-12 13:23 | P.PN ---
Subjective Progress Note Date: 12/12/20 Principal diagnosis: Bilateral lower extremity wounds The patient is seen and examined sitting up in the recliner. He states physical therapy assisted him. His pain is been manageable. He is status postop day #4 for bilateral lower extremity debridement. He is been afebrile. Patient with leukocytosis, WBC 19.39, hemoglobin with a drop to 6.8. Infectious disease continues to follow. Objective - Vital Signs Vital signs: Vital Signs Temp 98.8 F 12/12/20 07:37 Pulse 91 12/12/20 07:37 Resp 16 12/12/20 07:37 BP 128/63 12/12/20 07:37 Pulse Ox 100 12/12/20 07:37 Intake & Output 12/11/20 12/12/20 12/12/20 18:59 06:59 18:59 Intake Total 1080 Output Total 600 325 Balance 480 -325 Intake: Oral 1080 Output: Urine 600 325 Other: # Bowel Movements 1 - Exam General appearance: The patient is alert, oriented, in no acute distress. HET: Head is normocephalic and atraumatic. Pupils are equal and reactive. Oropharynx is clear without lesions. Neck: Supple without lymphadenopathy. Trachea midline. Heart: S1 S2. Regular rate and rhythm. Lungs: Clear to auscultation. Abdomen: Soft, nontender, nondistended. Extremities: Bilateral lower extremity edema. Bilateral plantar surface debridement without any drainage, necrotic tissue noted bilaterally. Bilateral dorsal aspect debridement with pink granulated tissue. Neurological: No focal deficits. Strength and sensation are grossly intact. - Labs CBC & Chem 7: 12/12/20 05:56 12/12/20 05:56 Labs: Abnormal Lab Results - Last 24 Hours (Table) 12/11/20 12/11/20 12/11/20 Range/Units 05:19 05:19 16:55 WBC (4.50-10.00) X 10*3/uL RBC (4.40-5.60) X 10*6/uL Hgb (13.0-17.0) g/dL Hct (39.6-50.0) % MCH (27.0-32.0) pg MCHC (32.0-37.0) g/dL RDW (11.5-14.5) % Plt Count (140-440) X 10*3/uL Immature Gran # (0.00-0.04) X 10*3/uL Neutrophils # (1.80-7.70) X 10*3/uL Monocytes # (0.20-1.00) X 10*3/uL BUN (9.0-27.0) mg/dL Est GFR (CKD-EPI)NonAf (60.0-200.0) BUN/Creatinine Ratio (12.00-20.00) Ratio Glucose (70-110) mg/dL POC Glucose (mg/dL) 142 H (75-99) mg/dL Calcium (8.7-10.3) mg/dL Alkaline Phosphatase (41-126) U/L C-Reactive Protein 11.4 H (0.0-0.8) mg/dL Total Protein (6.2-8.2) g/dL Albumin (3.80-4.90) g/dL Albumin/Globulin Ratio (1.60-3.17) g/dL Procalcitonin 0.42 H (0.02-0.09) ng/mL 12/11/20 12/12/20 12/12/20 Range/Units 20:08 05:56 05:56 WBC 19.39 H (4.50-10.00) X 10*3/uL RBC 2.85 L (4.40-5.60) X 10*6/uL Hgb 6.8 L* (13.0-17.0) g/dL Hct 22.8 L (39.6-50.0) % MCH 23.9 L (27.0-32.0) pg MCHC 29.8 L (32.0-37.0) g/dL RDW 16.2 H (11.5-14.5) % Plt Count 547 H (140-440) X 10*3/uL Immature Gran # 0.65 H (0.00-0.04) X 10*3/uL Neutrophils # 15.21 H (1.80-7.70) X 10*3/uL Monocytes # 1.35 H (0.20-1.00) X 10*3/uL BUN 29.0 H (9.0-27.0) mg/dL Est GFR (CKD-EPI)NonAf 52.7 L (60.0-200.0) BUN/Creatinine Ratio 20.71 H (12.00-20.00) Ratio Glucose 222 H (70-110) mg/dL POC Glucose (mg/dL) 209 H (75-99) mg/dL Calcium 7.8 L (8.7-10.3) mg/dL Alkaline Phosphatase 213 H (41-126) U/L C-Reactive Protein (0.0-0.8) mg/dL Total Protein 5.0 L (6.2-8.2) g/dL Albumin 2.30 L (3.80-4.90) g/dL Albumin/Globulin Ratio 0.85 L (1.60-3.17) g/dL Procalcitonin (0.02-0.09) ng/mL 12/12/20 12/12/20 Range/Units 07:03 11:19 WBC (4.50-10.00) X 10*3/uL RBC (4.40-5.60) X 10*6/uL Hgb (13.0-17.0) g/dL Hct (39.6-50.0) % MCH (27.0-32.0) pg MCHC (32.0-37.0) g/dL RDW (11.5-14.5) % Plt Count (140-440) X 10*3/uL Immature Gran # (0.00-0.04) X 10*3/uL Neutrophils # (1.80-7.70) X 10*3/uL Monocytes # (0.20-1.00) X 10*3/uL BUN (9.0-27.0) mg/dL Est GFR (CKD-EPI)NonAf (60.0-200.0) BUN/Creatinine Ratio (12.00-20.00) Ratio Glucose (70-110) mg/dL POC Glucose (mg/dL) 223 H 364 H (75-99) mg/dL Calcium (8.7-10.3) mg/dL Alkaline Phosphatase (41-126) U/L C-Reactive Protein (0.0-0.8) mg/dL Total Protein (6.2-8.2) g/dL Albumin (3.80-4.90) g/dL Albumin/Globulin Ratio (1.60-3.17) g/dL Procalcitonin (0.02-0.09) ng/mL Microbiology - Last 24 Hours (Table) 12/06/20 07:51 Blood Culture - Final Blood No Growth after 144 hours 12/06/20 08:04 Blood Culture - Final Blood No Growth after 144 hours 12/08/20 13:19 Gram Stain - Final Foot - Right Wound Culture - Final Strep agalactiae - (group b) Staphylococcus aureus 12/08/20 13:19 Gram Stain - Final Foot - Left Wound Culture - Final Strep agalactiae - (group b) Staphylococcus aureus 12/08/20 13:19 Anaerobic Culture - Final Foot - Left Anaerobic Gram Positive Cocci 12/06/20 14:35 Anaerobic Culture - Final Foot - Right Anaerobic Gm Negative Bacilli Anaerobic Gm Negative Bacilli#2 Assessment and Plan Assessment: 1. Post op day #4 bilateral lower extremity wound debridement 2. Bilateral non-healing lower extremity wounds 3. Fever 4. Diabetes mellitus 5. Neuropathy 6. Ischemic cardiomyopathy 7. History of intermittent claudication/peripheral arterial disease 8. Chronic anemia 9. Chronic kidney disease Plan: 1. Continue IV antibiotics per infectious disease 2. Dressing changes every 12 hours, with Dakin solution then saline wet to dry 3. Bilateral Arterial ultrasound reviewed by Dr. Barnhart 3. Patient will be scheduled for bilateral lower extremity angiogram tomorrow with Dr. Barnhart 3. Continue current medical treatment 4. Cardiology on consult 5. Physical therapy ordered, recommend non-weight bearing on left foot and may have weight bearing on right heal 6. Consult case management for ECF placement The impression and plan of care has been dictated as directed. Dr. Barnhart I performed a history and examination of this patient, discussed the same with the dictator. I agree with the dictator's note ,documented as a scribe. Any additional findings or plans will be noted.
[2020-12-12] MEDS: SODIUM CHLORIDE 0.9% 1,000 ML IV SCH (15:58)
[2020-12-12 16:49] LABS: Glucose,Whole Blood 273 mg/dL (75-99)
--- NOTE | 2020-12-12 18:21 | PN ---
PROGRESS NOTE This is a 65-year-old white male whose hemoglobin dropped down to 6.8 today. White count is 19.39. Remains on broad-spectrum antibiotics for severe cellulitis and osteomyelitis of the legs. He is going to be transfused one unit of blood today, probably has severe anemia of chronic disease plus some blood loss in his legs. Sugar is in the mid 200s. CARDIOVASCULAR: S1, S2. LUNGS: Clear. GI: Soft. HEMATOLOGY: Negative Homans. Dressings, wrappings on both legs. He had debridement 4 days ago. His white count is still high. We consulted Vascular for another debridement. Surgery recommended changing it every 12 hours with Dakin solution, then saline wet to dry. Angiogram tomorrow with Dr. Barnhart. Unsure what to do. Nonweightbearing on the left foot. Weightbearing on the right heel. Prognosis extremely guarded. Wait for recommendations on the foot per Dr. Bustamante and the vascular surgeon. Remain on broad-spectrum antibiotics. Transfuse for hemoglobin less than 7 today. Monitor electrolytes. He is covered with Unasyn. White count may be elevated secondary to likely ischemic changes. May benefit from repeat debridement. Waiting for Surgery to determine what they want to do with this. MMODL / IJN: [id number] /
[2020-12-12 20:37] LABS: Glucose,Whole Blood 284 mg/dL (75-99)
[2020-12-13] MEDS: AMPICILLIN-SULBACTAM 3 GM in SODIUM CHLORIDE 0.9% 100 ML IVPB SCH ×4 (01:37→17:29)
[2020-12-13] MEDS: SODIUM CHLORIDE 0.9% 1,000 ML IV SCH ×3 (02:44→21:46)
--- NOTE | 2020-12-13 03:28 | PN ---
PROGRESS NOTE DATE OF SERVICE: 12/12/2020 REASON FOR FOLLOWUP: Bilateral foot ulcers and cellulitis. INTERVAL HISTORY: The patient is currently afebrile, has been breathing comfortably. Denies having any chest pain, shortness of breath, cough, no abdominal pain or any worsening pain to diabetic foot wound area. PHYSICAL EXAMINATION: Blood pressure 126/55, pulse of 77, temperature 98.5. He is 97% on room air. General description is a middle-aged male lying in bed in no distress. Respiratory system: Unlabored breathing, clear to auscultation anteriorly. Heart S1, S2. Regular rate and rhythm. Abdomen soft, no tenderness. Bilateral feet wounds have significant amount of necrotic tissue. Surrounding redness has improved though. LABS: Hemoglobin 6.8, white count 19.9, BUN of 29, creatinine 1.4. DIAGNOSTIC IMPRESSION/PLAN: Patient with bilateral foot ulcer with cellulitis. Culture has been positive for Strep MSSA, anaerobes and Enterococcus faecalis. Should be covered with Unasyn with elevated white count, possibly reactive. The patient does have anemia and should be investigated further by GI plus-minus necrotic tissue. No benefit from further surgical debridement for vascular. Continue with Unasyn and monitor clinical course closely. MMODL / IJN: [id number] /
[2020-12-13] MEDS: LEVOTHYROXINE 100 MCG TAB PO SCH (05:24)
[2020-12-13] MEDS: LEVOTHYROXINE 50 MCG TAB PO SCH (05:24)
[2020-12-13 07:06] LABS: Glucose,Whole Blood 273 mg/dL (75-99)
[2020-12-13] MEDS: ATORVASTATIN 40 MG TAB PO SCH (07:51)
[2020-12-13] MEDS: DOXYCYCLINE 100 MG CAP PO SCH ×2 (07:51→21:47)
[2020-12-13] MEDS: FUROSEMIDE 20 MG TAB PO SCH (07:51)
[2020-12-13] MEDS: FENOFIBRATE 160 MG TAB PO SCH (07:52)
[2020-12-13] MEDS: METOPROLOL TARTRATE 25 MG TAB PO SCH (07:52)
[2020-12-13] MEDS: LOSARTAN 50 MG TAB PO SCH (07:52)
[2020-12-13] MEDS: ASPIRIN 81 MG PO SCH (07:52)
[2020-12-13] MEDS: INSULIN ASPART (NovoLOG) 100 UNIT/ML VIAL SQ SCH ×4 (07:54→21:46)
[2020-12-13 09:10] LABS: Basophils # (A) 0.05 X 10*3/uL (0.00-0.10); Basophils % (A) 0.3 %; Eosinophils # (A) 0.23 X 10*3/uL (0.04-0.35); Eosinophils % (A) 1.2 %; HCT 24.4 % (39.6-50.0); HGB 7.7 g/dL (13.0-17.0); Lymphocytes # (A) 2.06 X 10*3/uL (0.90-5.00); Lymphocytes % (A) 10.7 %; MCH 25.2 pg (27.0-32.0); MCHC 31.6 g/dL (32.0-37.0); Monocytes # (A) 1.26 X 10*3/uL (0.20-1.00); Monocytes % (A) 6.6 %; Neutrophils # (A) 15.21 X 10*3/uL (1.80-7.70); Platelet Count 541 X 10*3/uL (140-440); RBC 3.05 X 10*6/uL (4.40-5.60); RDW 17.2 % (11.5-14.5); WBC 19.23 X 10*3/uL (4.50-10.00)
[2020-12-13] MEDS ORDERED: LIDOCAINE 1% INJ 10MG/ML (20 ML MDV) ONE (09:48)
[2020-12-13 09:57] LABS: Glucose,Whole Blood 216 mg/dL (75-99)
[2020-12-13] MEDS ORDERED: IV FLUID CONTINUATION 1,000 ML IV ONE (10:20)
[2020-12-13] MEDS ORDERED: MIDAZOLAM 2 MG/2 ML VIAL IVP ONE (10:35)
[2020-12-13] MEDS ORDERED: LIDOCAINE 1% INJ 10MG/ML (20 ML MDV) SQ ONE (10:36)
[2020-12-13 10:43] LABS: African American GFR (CKD) 66.8 (60.0-200.0); Albumin 2.4 g/dL (3.80-4.90); Albumin/Globulin Ratio 0.89 (1.60-3.17); BUN/Creat Ratio 21.54 Ratio (12.00-20.00); Calcium 7.8 mg/dL (8.7-10.3); Globulin 2.7 g/dL (1.6-3.3); Non-African American GFR(CKD) 57.7 (60.0-200.0); Potassium 4.8 mmol/L (3.5-5.5); Total Bilirubin 0.4 mg/dL (0.3-1.2); Total Protein 5.1 g/dL (6.2-8.2)
[2020-12-13] MEDS ORDERED: IOPAMIDOL-250 100ML BTL INTRAARTER ONE (11:02)
--- NOTE | 2020-12-13 11:17 | P.OP ---
Description of Procedure: Preoperative diagnosis: Critical limb ischemia Omayra 6, bilateral foot wounds Postop diagnosis: Same. 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 Procedure: Aortogram with bilateral lower extremity runoffs via left radial artery access under ultrasound guidance Surgeon: Bronwyn Anesthesia: Moderate sedation times 30 mins Estimated blood loss: 5cc Complications: none Condition: stable Findings: Aorta: Patent without significant stenosis. Athersclerotic disease throughout [place]: Bilateral common, internal and external iliac arteries patent without significant stenosis Femorals: bilateral common, superficial femoral and profundus femoral arteries are patent. bilateral other sclerotic disease with right SFA occlusive disease approximately 60% just after the Torsten's canal. Popliteal: significant atherosclerotic calcific disease within the left poplit eal artery below the knee greater than 90% stenosis. No evidence of stenosis in the right popliteal artery. Tibials: bilateral anterior tibial artery SECOND FLOOR OPERATOR without reconstitution. Calcific disease involving bilateral PT and peroneal vessels with runoff to the ankle. Indication for procedure: 65-year-old gentleman currently being treated at the hospital for bilateral lower extremity foot wounds and he does have significant chronic venous insufficiency and has been treated with Unna boots and compression which he developed worsening wounds at the plantar aspect of bilateral feet. Upon evaluation and arterial Doppler he had decrease flow to his lower extremities with noncompressible vessels. Due to the fact that his wounds have not improved it was determined that he would require angiogram to see if there is any further treatment that can be performed to improve blood flow to his lower extremities. Operative narrative: After written informed consent was obtained the patient all risks benefits competitions were described the patient is brought to the [facility] and laid in a supine position. The area of the left arm was prepped and draped in the usual sterile fashion. Local anesthesia with moderate sedation was performed with continuous pulse ox monitoring and EKG monitoring. Utilizing ultrasound the left radial artery was visualized and shown to be patent without any significant plaque. Utilizing a multipurpose needle under ultrasound guidance the artery was accessed. Guidewire was placed followed by 5 Sudanese sheath. 035 Glidewire was then placed into the aorta followed by pigtail catheter. Angiogram was then obtained of the aorta. Catheter was then placed at the bifurcation and lower extremity runoffs were obtained. Once completed all guidewires, catheters and sheaths were removed and pressure was placed for hemostasis. Patient tolerated procedure well was sent to PACU for recovery
--- NOTE | 2020-12-13 11:35 | IR ---
EXAMINATION TYPE: IR angio abdominal w runoff DATE OF EXAM: 12/13/2020 COMPARISON: NONE HISTORY: Fluoroscopy time. Fluoroscopy was provided to the referring clinician.
--- NOTE | 2020-12-13 12:04 | P.PN ---
Subjective Progress Note Date: 12/13/20 Principal diagnosis: sepsis involving bilateral foot infection and cellulitis Atypical pneumonia Chronic kidney disease Uncontrolled diabetes and neuropathy along with vasculopathy hypertension hypertensive cardiovascular disease Dyslipidemia Morbid obesity and likely obstructive sleep apnea 12/13/2020, patient seen eval examined respiratory status remains stable patient's wound care by vascular surgery,denies any chest pain cough or sputum production, remains on broad-spectrum antibiotics oxygen saturation 98% percent on room air 12/12/2020, patient seen eval examined during the rounds labs reviewed medications reviewed care plan discussed, respiratory status the remains stable patient sitting upright on the bed breathing comfortably, patient is scheduled for PICC line later on today also supposed to get wound debridement as well, denies any cough or sputum production, 12/09/2020, patient seen eval reexamined labs reviewed medications reviewed care plan discussed, on room air oxygen saturation 100%, patient remains afebrile and hemodynamically stable with slightly low blood pressure, this is a 65-year-old morbidly obese male with the prior medical history of type 2 diabetes mellitus with his complication and sequelae including peripheral arterial disease neuropathy and chronic leg wounds patient also has chronic renal failure, patient presented into the hospital with the increased blood sugar, also has a problem of shortness of breath had fever of 101, denies any cough or sputum production denies any chest pain, Dr. Ross from vascular surgery has been following him for lower extremity woundshim a patient used to smoke but quit several years ago he used to smoke 2 packs per day quit about 10- 14 years, his prior history also significant for bypass surgery and stent placement, his covid 19 testing is negative, white cell count is 21,900, hemoglobin is 8.4, BUN/creatinine 53 and 1.9,left foot x-ray noted to have Charcot-type arthropathy with soft tissue swelling, chest x-ray prominent interstitium/infiltrate,subtle pneumonia cannot be excludedThomas patient is on Vanco along with cephapirin wound care on consult Objective - Vital Signs Vital signs: Vital Signs Temp 99.0 F 12/13/20 08:00 Pulse 55 L 12/13/20 11:30 Resp 16 12/13/20 11:30 BP 139/62 12/13/20 11:30 Pulse Ox 98 12/13/20 11:30 Intake & Output 12/12/20 12/13/2021 18:59 06:59 18:59 Intake Total 310 125 Output Total 500 850 Balance -190 -850 125 Weight 83.461 kg Intake: IV 125 Blood Product 310 Rc As-1 Unit 310 [id number] Output: Urine 500 850 Other: Voiding Method Urinal # Voids 1 # Bowel Movements 1 - Exam - Constitutional General appearance: disheveled, morbidly obese - EENT Eyes: PERRLA Ears: bilateral: normal - Neck Neck: normal ROM Carotids: bilateral: upstroke normal - Respiratory Respiratory: bilateral: diminished - Cardiovascular Rhythm: regular Heart sounds: normal: S1, S2 - Gastrointestinal General gastrointestinal: normal bowel sounds - Integumentary bilateral foot infection with left foot more than the right side - Neurologic Neurologic: CNII-XII intact - Musculoskeletal Musculoskeletal: gait normal, generalized weakness, strength equal bilaterally - Psychiatric Psychiatric: A&O x's 3, appropriate affect, intact judgment & insight - Labs CBC & Chem 7: 12/13/20 05:50 12/13/20 05:50 Labs: Abnormal Lab Results - Last 24 Hours (Table) 12/12/20 12/12/20 12/12/20 Range/Units 11:39 16:47 20:34 WBC (4.50-10.00) X 10*3/uL RBC (4.40-5.60) X 10*6/uL Hgb (13.0-17.0) g/dL Hct (39.6-50.0) % MCH (27.0-32.0) pg MCHC (32.0-37.0) g/dL RDW (11.5-14.5) % Plt Count (140-440) X 10*3/uL Immature Gran # (0.00-0.04) X 10*3/uL Neutrophils # (1.80-7.70) X 10*3/uL Monocytes # (0.20-1.00) X 10*3/uL BUN (9.0-27.0) mg/dL Est GFR (CKD-EPI)NonAf (60.0-200.0) BUN/Creatinine Ratio (12.00-20.00) Ratio Glucose (70-110) mg/dL POC Glucose (mg/dL) 273 H 284 H (75-99) mg/dL Calcium (8.7-10.3) mg/dL Alkaline Phosphatase (41-126) U/L Total Protein (6.2-8.2) g/dL Albumin (3.80-4.90) g/dL Albumin/Globulin Ratio (1.60-3.17) g/dL Crossmatch See Detail 12/13/20 12/13/20 12/13/20 Range/Units 05:50 05:50 07:03 WBC 19.23 H (4.50-10.00) X 10*3/uL RBC 3.05 L (4.40-5.60) X 10*6/uL Hgb 7.7 L (13.0-17.0) g/dL Hct 24.4 L (39.6-50.0) % MCH 25.2 L (27.0-32.0) pg MCHC 31.6 L (32.0-37.0) g/dL RDW 17.2 H (11.5-14.5) % Plt Count 541 H (140-440) X 10*3/uL Immature Gran # 0.42 H (0.00-0.04) X 10*3/uL Neutrophils # 15.21 H (1.80-7.70) X 10*3/uL Monocytes # 1.26 H (0.20-1.00) X 10*3/uL BUN 28.0 H (9.0-27.0) mg/dL Est GFR (CKD-EPI)NonAf 57.7 L (60.0-200.0) BUN/Creatinine Ratio 21.54 H (12.00-20.00) Ratio Glucose 231 H (70-110) mg/dL POC Glucose (mg/dL) 273 H (75-99) mg/dL Calcium 7.8 L (8.7-10.3) mg/dL Alkaline Phosphatase 226 H (41-126) U/L Total Protein 5.1 L (6.2-8.2) g/dL Albumin 2.40 L (3.80-4.90) g/dL Albumin/Globulin Ratio 0.89 L (1.60-3.17) g/dL Crossmatch 12/13/20 Range/Units 09:54 WBC (4.50-10.00) X 10*3/uL RBC (4.40-5.60) X 10*6/uL Hgb (13.0-17.0) g/dL Hct (39.6-50.0) % MCH (27.0-32.0) pg MCHC (32.0-37.0) g/dL RDW (11.5-14.5) % Plt Count (140-440) X 10*3/uL Immature Gran # (0.00-0.04) X 10*3/uL Neutrophils # (1.80-7.70) X 10*3/uL Monocytes # (0.20-1.00) X 10*3/uL BUN (9.0-27.0) mg/dL Est GFR (CKD-EPI)NonAf (60.0-200.0) BUN/Creatinine Ratio (12.00-20.00) Ratio Glucose (70-110) mg/dL POC Glucose (mg/dL) 216 H (75-99) mg/dL Calcium (8.7-10.3) mg/dL Alkaline Phosphatase (41-126) U/L Total Protein (6.2-8.2) g/dL Albumin (3.80-4.90) g/dL Albumin/Globulin Ratio (1.60-3.17) g/dL Crossmatch Microbiology - Last 24 Hours (Table) 12/08/20 13:19 Anaerobic Culture - Final Foot - Right 12/06/20 07:51 Blood Culture - Final Blood No Growth after 144 hours 12/06/20 08:04 Blood Culture - Final Blood No Growth after 144 hours Assessment and Plan Assessment: sepsis involving bilateral foot infection and cellulitis Atypical pneumonia Chronic kidney disease Uncontrolled diabetes and neuropathy along with vasculopathy hypertension hypertensive cardiovascular disease Dyslipidemia Morbid obesity and likely obstructive sleep apnea Plan: continue deep breathing exercise incentive spirometry Follow clinical course closely with antibiotics continue oral doxycycline 4 feet to 10 days Patient will need a sleep study as outpatient Further recommendations pending plan of care as per clinical response of patient Time with Patient: Greater than 30
[2020-12-13 16:57] LABS: Glucose,Whole Blood 268 mg/dL (75-99)
--- NOTE | 2020-12-13 19:06 | PN ---
PROGRESS NOTE This is a 65-year-old white male with bilateral foot infections, greater on the left. He is going to have another wound debridement tomorrow. He had an arteriogram that showed one area of blockage, but fixing it would not improve his healing by any significant amount of time, so he will need 6 weeks of antibiotics to heal his foot, according to the vascular doctor. He is being treated for atypical pneumonia on doxycycline orally, IV Unasyn for wound infection. The patient is doing better today. He is in a good mood. Saturation is 98% on room air. CARDIOVASCULAR: S1, S2. LUNGS: Clear. VASCULAR: Left leg is a dressing on the entire leg. He has Charcot foot soft tissue swelling. VITAL SIGNS: Stable. White count 19.2, hemoglobin 7.7, status post one unit of blood transfusion yesterday for significant anemia. ASSESSMENT: 1. Severe anemia secondary to sepsis. 2. Sepsis secondary to bilateral foot infections. 3. Cellulitis. 4. Atypical pneumonia. 5. Chronic kidney disease. 6. Uncontrolled diabetes mellitus. 7. Hypertensive heart disease. 8. Dyslipidemia. 9. Morbid obesity. Continue on oral doxycycline to finish course. IV Unasyn. Possibly he will be need to be set up on prolonged IV antibiotics until the wound heals at home with home nursing care. Please see further orders. MMODL / IJN: [id number] /
[2020-12-13 20:00] LABS: Glucose,Whole Blood 355 mg/dL (75-99)
[2020-12-14] MEDS: ACETAMINOPHEN TAB 500 MG TAB PO PRN (00:30)
[2020-12-14] MEDS: AMPICILLIN-SULBACTAM 3 GM in SODIUM CHLORIDE 0.9% 100 ML IVPB SCH ×5 (00:30→21:09)
--- NOTE | 2020-12-14 01:00 | PN ---
PROGRESS NOTE DATE OF SERVICE: 12/13/2020 REASON FOR FOLLOW UP: Bilateral foot wound and cellulitis. INTERVAL HISTORY: The patient is afebrile. The patient is currently breathing comfortably. Denies having any chest pain. No shortness of breath or cough. No abdominal pain or any worsening pain to the bilateral foot wound area. The patient is status post aortogram with bilateral lower extremity runoff. The patient has tolerated the procedure. EXAMINATION: His blood pressure is 138/57, pulse of 72, temperature 98. He is 93% on room air. General description is a middle-aged male lying in bed in no distress. Respiratory system: Unlabored breathing, clear to auscultation anteriorly. Heart: S1, S2. Regular rate and rhythm. ABDOMEN: Soft, no tenderness. LABS: White count still elevated 19.3. DIAGNOSTIC IMPRESSION AND PLAN: Patient with bilateral foot ulcers, wound and cellulitis. Culture with multiple pathogen including anaerobes, strep and MSSA. The patient is covered with Unasyn. Still have elevated white count more likely because of significant necrotic tissue which may need further debridement. Continue supportive care. MMODL / IJN: [id number] /
[2020-12-14 06:04] LABS: Glucose,Whole Blood 218 mg/dL (75-99)
[2020-12-14] MEDS: INSULIN ASPART (NovoLOG) 100 UNIT/ML VIAL SQ SCH ×4 (06:33→21:09)
[2020-12-14] MEDS: LEVOTHYROXINE 100 MCG TAB PO SCH (06:33)
[2020-12-14] MEDS: LEVOTHYROXINE 50 MCG TAB PO SCH (06:33)
[2020-12-14 07:33] LABS: Basophils % (A) 0 %; Eosinophils # (A) 0.2 k/uL (0-0.7); Eosinophils % (A) 1 %; HCT 24.4 % (39.0-53.0); HGB 7.7 gm/dL (13.0-17.5); Hypochromasia Moderate; Lymphocytes # (A) 1.8 k/uL (1.0-4.8); Lymphocytes % (A) 11 %; MCHC 31.6 g/dL (31.0-37.0); Mean Platelet Volume 7.3; Monocytes # (A) 0.7 k/uL (0-1.0); Monocytes % (A) 4 %; Neutrophils # (A) 13.5 k/uL (1.3-7.7); Neutrophils % (A) 83 %; Platelet Count 542 k/uL (150-450); RBC 3.09 m/uL (4.30-5.90); WBC 16.4 k/uL (3.8-10.6)
[2020-12-14 07:43] LABS: Calcium 7.6 mg/dL (8.4-10.2); Total Bilirubin 0.4 mg/dL (0.2-1.3)
[2020-12-14] MEDS: LOSARTAN 50 MG TAB PO SCH (08:26)
[2020-12-14] MEDS: DOXYCYCLINE 100 MG CAP PO SCH ×2 (08:26→22:58)
[2020-12-14] MEDS: METOPROLOL TARTRATE 25 MG TAB PO SCH (08:26)
[2020-12-14] MEDS: ATORVASTATIN 40 MG TAB PO SCH (08:27)
[2020-12-14] MEDS: FUROSEMIDE 20 MG TAB PO SCH (08:27)
[2020-12-14] MEDS: ASPIRIN 81 MG PO SCH (08:27)
[2020-12-14] MEDS: FENOFIBRATE 160 MG TAB PO SCH (08:27)
[2020-12-14] MEDS ORDERED: IV FLUID CONTINUATION 250 ML IV ONE (11:15)
--- NOTE | 2020-12-14 11:23 | P.ARTDOP ---
Arterial Doppler LOWER EXTREMITY ARTERIAL DOPPLER: DATE OF SERVICE: 12/07/2020 Reason for study: Right foot and leg ulcers. Doppler waveforms: Multiphasic at the right femoral and atypical below. Multiphasic at the left femoral and throughout.. Pulse volume recording: []. Pressure gradients: Only recorded at the foot level. Ankle-brachial indices: Cannot be occluded. Toe brachial indices: 0.3 to on the right, 0.53 on the left Impression: Suggests mild to moderate left fem-pop disease with perfusion possibly adequate for healing. At least moderate right fem-pop disease. Tissue perfusion marginal. Clinical correlation recommended with vascular specialty consultation..
[2020-12-14 11:46] LABS: Glucose,Whole Blood 170 mg/dL (75-99)
--- NOTE | 2020-12-14 12:24 | PN ---
PROGRESS NOTE A 65-year-old white male who is suppose to get a wound debridement today. He had arterial angiogram test done yesterday which shows mild to moderate left, adequate for healing, moderate right femoral-popliteal disease, tissue perfusion marginal, clinical correlation recommended. His worse wounds are on his left leg, which seem to have enough blood flow. He is going to get debridement and antibiotics have to be set up for at least 6 weeks as an outpatient. The patient is having no fevers or chills. He is status post a unit of blood. He is feeling better. Blood pressure 130s over 50s, pulse 70s, temperature 98, O2 of 93 on room air. Well- developed white male in no acute distress. Nonlabored breathing. Lungs are clear. Heart S1, S2. Abdomen is soft, nontender. Labs show white count 19.3. He has got bilateral foot ulcers, wounds, and signs of cellulitis, PAD, strep, MSSA anaerobes covered with Unasyn. He has significant necrotic tissue which has to be debrided today and then possibly be sent home on antibiotics which will be set up with Dr. Bustamante's. His white count is decreased today down to 16.4 from 19.7. His hemoglobin remains low at 7.7. May have to give him another unit of blood if he continues to have blood loss, especially after another wound debridement today. Sugars are in the mid 200s. Prognosis is guarded as he is high risk for amputation due to Charcot foot and about 40% of his foot wounds on his left foot. Prognosis extremely guarded. Risk factor modification explained. MMODL / IJN: [id number] /
[2020-12-14] MEDS ORDERED: fentaNYL (PF) 50 MCG/ML 2 ML AMP ONE (13:27)
[2020-12-14] MEDS ORDERED: PROPOFOL 10 MG/ML 20 ML VIAL IV ONE (13:27)
[2020-12-14] MEDS ORDERED: LIDOCAINE 1% INJ 10MG/ML (20 ML MDV) ONE (13:27)
--- NOTE | 2020-12-14 13:30 | P.PN ---
Subjective Progress Note Date: 12/14/20 Patient seen and examined today. No complaints or concerns. Plan for operative debridement for necrotic tissues. Objective - Vital Signs Vital signs: Vital Signs Temp 97.3 F L 12/14/20 13:20 Pulse 56 L 12/14/20 13:20 Resp 20 12/14/20 13:20 BP 121/55 12/14/20 13:20 Pulse Ox 100 12/14/20 13:20 Intake & Output 12/13/20 12/14/20 12/14/20 18:59 06:59 18:59 Intake Total 465 1260 Output Total 400 950 200 Balance 65 310 -200 Weight 91.5 kg Intake: IV 125 Intake, IV Titration 100 600 Amount Ampicillin-Sulbactam 3 gm 100 200 In Sodium Chloride 0.9% 100 ml @ 200 mls/hr IVPB Q6HR [facility] Rx#:[id number] Sodium Chloride 0.9% 1, 400 000 ml @ 75 mls/hr IV . [id number] [facility] Rx#:[id number] Oral 240 660 Output: Urine 400 950 200 Other: Voiding Method Urinal Urinal # Voids 1 # Bowel Movements 1 1 - Labs CBC & Chem 7: 12/14/20 07:06 12/14/20 07:06 Labs: Abnormal Lab Results - Last 24 Hours (Table) 12/13/20 12/13/20 12/14/20 Range/Units 16:36 19:57 06:03 WBC (3.8-10.6) k/uL RBC (4.30-5.90) m/uL Hgb (13.0-17.5) gm/dL Hct (39.0-53.0) % MCV (80.0-100.0) fL RDW (11.5-15.5) % Plt Count (150-450) k/uL Neutrophils # (1.3-7.7) k/uL BUN (9-20) mg/dL Creatinine (0.66-1.25) mg/dL Glucose (74-99) mg/dL POC Glucose (mg/dL) 268 H 355 H 218 H (75-99) mg/dL Calcium (8.4-10.2) mg/dL Alkaline Phosphatase (38-126) U/L Total Protein (6.3-8.2) g/dL Albumin (3.5-5.0) g/dL 12/14/20 12/14/20 12/14/20 Range/Units 07:06 07:06 11:45 WBC 16.4 H (3.8-10.6) k/uL RBC 3.09 L (4.30-5.90) m/uL Hgb 7.7 L (13.0-17.5) gm/dL Hct 24.4 L (39.0-53.0) % MCV 79.0 L (80.0-100.0) fL RDW 16.0 H (11.5-15.5) % Plt Count 542 H (150-450) k/uL Neutrophils # 13.5 H (1.3-7.7) k/uL BUN 27 H (9-20) mg/dL Creatinine 1.39 H (0.66-1.25) mg/dL Glucose 185 H (74-99) mg/dL POC Glucose (mg/dL) 170 H (75-99) mg/dL Calcium 7.6 L (8.4-10.2) mg/dL Alkaline Phosphatase 226 H (38-126) U/L Total Protein 5.0 L (6.3-8.2) g/dL Albumin 2.0 L (3.5-5.0) g/dL
--- NOTE | 2020-12-14 14:27 | P.OP ---
Date of Procedure: 12/14/20 Description of Procedure: Preoperative diagnosis: [Bilateral lower extremity wounds, bilateral Charcot foot, peripheral arterial disease] Postoperative diagnosis: Same Procedure: [Sharp excisional debridement bilateral lower extremities Right ankle 7 x 3.5 x 0.2 cm to subcutaneous tissue Right foot 9 x 5 x 0.3 cm to bone Left ankle 2.3 x 1.7 x 0.2 cm to subcutaneous tissue Left foot 14 x 11 x 1 cm to bone] Surgeon: Denia Armenta D.O. EBL: [20 mL] IV fluids: [See records] Urine output: [Not measured] Drains: [None] Complications: [None immediately apparent] Condition: [Stable to recovery] Operative indication and findings: [The patient is a 65-year-old male in today for operative debridement of his bilateral lower extremities. He has undergone previous debridement a few days ago and continues to have some areas of ischemic tissue and eschar. There is still some purulent drainage therefore it was decided he would benefit from intervention. He underwent an aortic angiogram yesterday with Dr. Barnhart] Procedure in detail: [The patient is seemingly upper suite and placed in supine position. Bilateral lower extremities were prepped and draped in usual sterile fashion. A preprocedure timeout was performed, all parties are in agreement. On the right ankle the anterior wound is debrided with a scalpel to the level of healthy-appearing granulation tissue. The foot was cleared of all eschar and did appear to travel to the bone at the fifth metatarsal itself. There was no further purulent drainage. The area was irrigated. Wet-to-dry dressings were placed with a Kerlix and Coban and. Attention was then turned towards the left lower extremity the left ankle anteriorly was debrided down to healthy appearing granulation tissue in the subcutaneous space. At the level of the foot there was significant eschar that was excised. At the lateral foot near the fifth metatarsal head there was a pocket of purulent drainage that was opened and cleaned. There is also an area in the medial foot with necrotic-appearing fat that was debrided. Again the debridements of did go to the level of the bone at the metatarsals. The wound was cleansed. Wet-to-dry dressing was placed on the Kerlix and Coban. Will continue local wound care, there is a high inevitability the patient will require amputations due to his Charcot foot and the amount of tissue loss and obstruction due to his wounds. ]
[2020-12-14 14:40] LABS: Glucose,Whole Blood 144 mg/dL (75-99)
--- NOTE | 2020-12-14 15:34 | P.PN ---
Subjective Progress Note Date: 12/14/20 Principal diagnosis: sepsis involving bilateral foot infection and cellulitis Atypical pneumonia Chronic kidney disease Uncontrolled diabetes and neuropathy along with vasculopathy hypertension hypertensive cardiovascular disease Dyslipidemia Morbid obesity and likely obstructive sleep apnea 12/14/2020, patient seen eval examined remains afebrile saturation is stable denies any cough or sputum production denies any chest pain, labs today for reviewed hemoglobin stable 7.7 white cell count is trending downwards 16.4, renal functions have been a stable 27/1.39 12/13/2020, patient seen eval examined respiratory status remains stable patient's wound care by vascular surgery,denies any chest pain cough or sputum production, remains on broad-spectrum antibiotics oxygen saturation 98% percent on room air 12/12/2020, patient seen eval examined during the rounds labs reviewed medications reviewed care plan discussed, respiratory status the remains stable patient sitting upright on the bed breathing comfortably, patient is scheduled for PICC line later on today also supposed to get wound debridement as well, denies any cough or sputum production, 12/09/2020, patient seen eval reexamined labs reviewed medications reviewed care plan discussed, on room air oxygen saturation 100%, patient remains afebrile and hemodynamically stable with slightly low blood pressure, this is a 65-year-old morbidly obese male with the prior medical history of type 2 diabetes mellitus with his complication and sequelae including peripheral arterial disease neuropathy and chronic leg wounds patient also has chronic renal failure, patient presented into the hospital with the increased blood sugar, also has a problem of shortness of breath had fever of 101, denies any cough or sputum production denies any chest pain, Dr. Ross from vascular surgery has been following him for lower extremity woundshim a patient used to smoke but quit several years ago he used to smoke 2 packs per day quit about 10- 14 years, his prior history also significant for bypass surgery and stent placement, his covid 19 testing is negative, white cell count is 21,900, hemoglobin is 8.4, BUN/creatinine 53 and 1.9,left foot x-ray noted to have Charcot-type arthropathy with soft tissue swelling, chest x-ray prominent interstitium/infiltrate,subtle pneumonia cannot be excludedThomas patient is on Vanco along with cephapirin wound care on consult Objective - Vital Signs Vital signs: Vital Signs Temp 97.8 F 12/14/20 15:30 Pulse 58 L 12/14/20 15:30 Resp 16 12/14/20 15:30 BP 146/71 12/14/20 15:30 Pulse Ox 99 12/14/20 15:30 Intake & Output 12/13/20 12/14/20 12/14/20 18:59 06:59 18:59 Intake Total 465 1260 200 Output Total 400 950 520 Balance 65 310 -320 Weight 91.5 kg Intake: IV 125 200 Intake, IV Titration 100 600 Amount Ampicillin-Sulbactam 3 gm 100 200 In Sodium Chloride 0.9% 100 ml @ 200 mls/hr IVPB Q6HR [facility] Rx#:[id number] Sodium Chloride 0.9% 1, 400 000 ml @ 75 mls/hr IV . [id number] [facility] Rx#:[id number] Oral 240 660 0 Output: Urine 400 950 500 Estimated Blood Loss 20 Other: Voiding Method Urinal Urinal # Voids 1 # Bowel Movements 1 1 - Exam - Constitutional General appearance: disheveled, morbidly obese - EENT Eyes: PERRLA Ears: bilateral: normal - Neck Neck: normal ROM Carotids: bilateral: upstroke normal - Respiratory Respiratory: bilateral: diminished - Cardiovascular Rhythm: regular Heart sounds: normal: S1, S2 - Gastrointestinal General gastrointestinal: normal bowel sounds - Integumentary bilateral foot infection with left foot more than the right side - Neurologic Neurologic: CNII-XII intact - Musculoskeletal Musculoskeletal: gait normal, generalized weakness, strength equal bilaterally - Psychiatric Psychiatric: A&O x's 3, appropriate affect, intact judgment & insight - Labs CBC & Chem 7: 12/14/20 07:06 12/14/20 07:06 Labs: Abnormal Lab Results - Last 24 Hours (Table) 12/13/20 12/13/20 12/14/20 Range/Units 16:36 19:57 06:03 WBC (3.8-10.6) k/uL RBC (4.30-5.90) m/uL Hgb (13.0-17.5) gm/dL Hct (39.0-53.0) % MCV (80.0-100.0) fL RDW (11.5-15.5) % Plt Count (150-450) k/uL Neutrophils # (1.3-7.7) k/uL BUN (9-20) mg/dL Creatinine (0.66-1.25) mg/dL Glucose (74-99) mg/dL POC Glucose (mg/dL) 268 H 355 H 218 H (75-99) mg/dL Calcium (8.4-10.2) mg/dL Alkaline Phosphatase (38-126) U/L Total Protein (6.3-8.2) g/dL Albumin (3.5-5.0) g/dL 12/14/20 12/14/20 12/14/20 Range/Units 07:06 07:06 11:45 WBC 16.4 H (3.8-10.6) k/uL RBC 3.09 L (4.30-5.90) m/uL Hgb 7.7 L (13.0-17.5) gm/dL Hct 24.4 L (39.0-53.0) % MCV 79.0 L (80.0-100.0) fL RDW 16.0 H (11.5-15.5) % Plt Count 542 H (150-450) k/uL Neutrophils # 13.5 H (1.3-7.7) k/uL BUN 27 H (9-20) mg/dL Creatinine 1.39 H (0.66-1.25) mg/dL Glucose 185 H (74-99) mg/dL POC Glucose (mg/dL) 170 H (75-99) mg/dL Calcium 7.6 L (8.4-10.2) mg/dL Alkaline Phosphatase 226 H (38-126) U/L Total Protein 5.0 L (6.3-8.2) g/dL Albumin 2.0 L (3.5-5.0) g/dL 12/14/20 Range/Units 14:38 WBC (3.8-10.6) k/uL RBC (4.30-5.90) m/uL Hgb (13.0-17.5) gm/dL Hct (39.0-53.0) % MCV (80.0-100.0) fL RDW (11.5-15.5) % Plt Count (150-450) k/uL Neutrophils # (1.3-7.7) k/uL BUN (9-20) mg/dL Creatinine (0.66-1.25) mg/dL Glucose (74-99) mg/dL POC Glucose (mg/dL) 144 H (75-99) mg/dL Calcium (8.4-10.2) mg/dL Alkaline Phosphatase (38-126) U/L Total Protein (6.3-8.2) g/dL Albumin (3.5-5.0) g/dL Assessment and Plan Assessment: sepsis involving bilateral foot infection and cellulitis Atypical pneumonia Chronic kidney disease Uncontrolled diabetes and neuropathy along with vasculopathy hypertension hypertensive cardiovascular disease Dyslipidemia Morbid obesity and likely obstructive sleep apnea Plan: continue deep breathing exercise incentive spirometry Follow clinical course closely with antibiotics continue oral doxycycline 4 feet to 10 days Patient will need a sleep study as outpatient Further recommendations pending plan of care as per clinical response of patient Time with Patient: Greater than 30
[2020-12-14 16:52] LABS: Glucose,Whole Blood 188 mg/dL (75-99)
[2020-12-14] MEDS: SODIUM CHLORIDE 0.9% 1,000 ML IV SCH (17:01)
[2020-12-14 20:34] LABS: Glucose,Whole Blood 231 mg/dL (75-99)
[2020-12-15] MEDS: LEVOTHYROXINE 100 MCG TAB PO SCH (04:53)
[2020-12-15] MEDS: LEVOTHYROXINE 50 MCG TAB PO SCH (04:53)
[2020-12-15] MEDS: AMPICILLIN-SULBACTAM 3 GM in SODIUM CHLORIDE 0.9% 100 ML IVPB SCH ×4 (04:53→22:59)
[2020-12-15] MEDS: SODIUM CHLORIDE 0.9% 1,000 ML IV SCH (04:54)
--- NOTE | 2020-12-15 05:52 | PN ---
PROGRESS NOTE DATE OF SERVICE: 12/14/2020 REASON FOR FOLLOWUP: Bilateral lower extremity wound and cellulitis. INTERVAL HISTORY: Patient is currently afebrile. Patient is breathing comfortably. The patient is status post debridement of his wound today. The patient has tolerated the procedure. Denies having any chest pain. No shortness of breath or cough. No abdominal pain or diarrhea. PHYSICAL EXAMINATION: Blood pressure 131/78 with a pulse of 75, temperature 97.9. He is 98% on room air. General description is a middle-aged male lying in bed in no distress. Respiratory system: Unlabored breathing ,clear to auscultation anteriorly. Heart S1, S2. Regular rate and rhythm. Abdomen is soft and tenderness. Foot wounds are currently dressed up. No obvious drainage on the dressing. LABS: Hemoglobin 7.7, white count 16.4, BUN of 27, creatinine is 1.39. DIAGNOSTIC IMPRESSION AND PLAN: Patient with bilateral lower extremity wounds with secondary cellulitis, status post debridement. The patient is currently covered with Unasyn. In view of extensive wounds, would benefit from PICC line and outpatient IV antibiotic therapy. Continue with supportive care. MMODL / IJN: [id number] /
[2020-12-15 06:20] LABS: Glucose,Whole Blood 340 mg/dL (75-99)
[2020-12-15] MEDS: INSULIN ASPART (NovoLOG) 100 UNIT/ML VIAL SQ SCH ×4 (06:30→20:31)
[2020-12-15] MEDS: ASPIRIN 81 MG PO SCH (09:26)
[2020-12-15] MEDS: ATORVASTATIN 40 MG TAB PO SCH (09:27)
[2020-12-15] MEDS: METOPROLOL TARTRATE 25 MG TAB PO SCH (09:27)
[2020-12-15] MEDS: LOSARTAN 50 MG TAB PO SCH (09:27)
[2020-12-15] MEDS: FUROSEMIDE 20 MG TAB PO SCH (09:27)
[2020-12-15] MEDS: FENOFIBRATE 160 MG TAB PO SCH (09:27)
--- NOTE | 2020-12-15 10:21 | P.PN ---
Subjective Progress Note Date: 12/15/20 Principal diagnosis: Bilateral lower extremity wounds The patient is seen and examined lying in bed. He is postop day #1 for bilateral lower extremity debridement of his right and left foot. He denies any pain to bilateral lower extremities. He denies any acute changes through the night. Denies any fever or chills. Is able to move bilateral lower extremities. He is scheduled to get a PICC line placement today. Objective - Vital Signs Vital signs: Vital Signs Temp 98.2 F 12/15/20 08:00 Pulse 69 12/15/20 08:00 Resp 16 12/15/20 08:00 BP 124/68 12/15/20 08:00 Pulse Ox 96 12/15/20 08:00 Intake & Output 12/14/20 12/15/20 12/15/20 18:59 06:59 18:59 Intake Total 680 1430 Output Total 845 600 Balance -165 830 Weight 92.5 kg Intake: IV 200 Intake, IV Titration 950 Amount Ampicillin-Sulbactam 3 gm 200 In Sodium Chloride 0.9% 100 ml @ 200 mls/hr IVPB Q6HR [facility] Rx#:[id number] Sodium Chloride 0.9% 1, 750 000 ml @ 75 mls/hr IV . [id number] [facility] Rx#:[id number] Oral 480 480 Output: Urine 825 600 Estimated Blood Loss 20 Other: Voiding Method Urinal Urinal # Voids 3 # Bowel Movements 1 1 - Exam General appearance: The patient is alert, oriented, in no acute distress. HET: Head is normocephalic and atraumatic. Pupils are equal and reactive. Oropharynx is clear without lesions. Neck: Supple without lymphadenopathy. Trachea midline. Heart: S1 S2. Regular rate and rhythm. Lungs: Clear to auscultation. Abdomen: Soft, nontender, nondistended. Extremities: Bilateral lower extremity edema. Bilateral lower extremities with dressing clean dry and intact. Patient is able to freely move bilateral lower extremities including toes. Neurological: No focal deficits. Strength and sensation are grossly intact. - Labs CBC & Chem 7: 12/14/20 07:06 12/14/20 07:06 Labs: Abnormal Lab Results - Last 24 Hours (Table) 12/14/20 12/14/20 12/14/20 Range/Units 11:45 14:38 16:51 POC Glucose (mg/dL) 170 H 144 H 188 H (75-99) mg/dL 12/14/20 12/15/20 Range/Units 20:33 06:19 POC Glucose (mg/dL) 231 H 340 H (75-99) mg/dL Assessment and Plan Assessment: 1. Post op day #4 bilateral lower extremity wound debridement 2. Bilateral non-healing lower extremity wounds 3. Fever 4. Diabetes mellitus 5. Neuropathy 6. Ischemic cardiomyopathy 7. History of intermittent claudication/peripheral arterial disease 8. Chronic anemia 9. Chronic kidney disease Plan: 1. Continue IV antibiotics per infectious disease 2. Daily wet-to-dry dressing changes, beginning tomorrow 3. Continue current medical treatment 5. Physical therapy ordered, recommend non-weight bearing on left foot and may have weight bearing on right heal 6. Discussed with patient he will need outpatient follow-up with the wound care center, and will likely need bilateral lower extremity below the knee amputation 7. Case management for ECF placement on consult The impression and plan of care has been dictated as directed. Dr. Armenta I performed a history and examination of this patient, discussed the same with the dictator. I agree with the dictator's note ,documented as a scribe. Any additional findings or plans will be noted.
--- NOTE | 2020-12-15 10:28 | P.PN ---
Subjective Progress Note Date: 12/15/20 Principal diagnosis: sepsis involving bilateral foot infection and cellulitis Atypical pneumonia Chronic kidney disease Uncontrolled diabetes and neuropathy along with vasculopathy hypertension hypertensive cardiovascular disease Dyslipidemia Morbid obesity and likely obstructive sleep apnea 12/15/2020, patient seen eval examined during the rounds status was debridement of the wound from the foot, respiratory status remained stable breathing comfortably denies any chest pain, remains afebrile with temperature 90.8, hemodynamically stable blood pressure 124/68, on room air oxygen saturation 96%, patient off of doxycycline on Unasyn for 4 foot infection now 12/14/2020, patient seen eval examined remains afebrile saturation is stable denies any cough or sputum production denies any chest pain, labs today for reviewed hemoglobin stable 7.7 white cell count is trending downwards 16.4, renal functions have been a stable /.39 12/13/2020, patient seen eval examined respiratory status remains stable patient's wound care by vascular surgery,denies any chest pain cough or sputum production, remains on broad-spectrum antibiotics oxygen saturation 98% percent on room air 12/12/2020, patient seen eval examined during the rounds labs reviewed medications reviewed care plan discussed, respiratory status the remains stable patient sitting upright on the bed breathing comfortably, patient is scheduled for PICC line later on today also supposed to get wound debridement as well, denies any cough or sputum production, 12/09/2020, patient seen eval reexamined labs reviewed medications reviewed care plan discussed, on room air oxygen saturation 100%, patient remains afebrile and hemodynamically stable with slightly low blood pressure, this is a 65-year-old morbidly obese male with the prior medical history of type 2 diabetes mellitus with his complication and sequelae including peripheral arterial disease neuropathy and chronic leg wounds patient also has chronic renal failure, patient presented into the hospital with the increased blood sugar, also has a problem of shortness of breath had fever of 101, denies any cough or sputum production denies any chest pain, Dr. Ross from vascular surgery has been following him for lower extremity woundshim a patient used to smoke but quit several years ago he used to smoke 2 packs per day quit about 10- 14 years, his prior history also significant for bypass surgery and stent placement, his covid 19 testing is negative, white cell count is 21,900, hemoglobin is 8.4, BUN/creatinine 53 and 1.9,left foot x-ray noted to have Charcot-type arthropathy with soft tissue swelling, chest x-ray prominent inte rstitium/infiltrate,subtle pneumonia cannot be excludedThomas patient is on Vanco along with cephapirin wound care on consult Objective - Vital Signs Vital signs: Vital Signs Temp 98.2 F 12/15/20 08:00 Pulse 69 12/15/20 08:00 Resp 16 12/15/20 08:00 BP 124/68 12/15/20 08:00 Pulse Ox 96 12/15/20 08:00 Intake & Output 12/14/20 12/15/20 12/15/20 18:59 06:59 18:59 Intake Total 680 1430 Output Total 845 600 Balance -165 830 Weight 92.5 kg Intake: IV 200 Intake, IV Titration 950 Amount Ampicillin-Sulbactam 3 gm 200 In Sodium Chloride 0.9% 100 ml @ 200 mls/hr IVPB Q6HR [facility] Rx#:[id number] Sodium Chloride 0.9% 1, 750 000 ml @ 75 mls/hr IV . [id number] [facility] Rx#:[id number] Oral 480 480 Output: Urine 825 600 Estimated Blood Loss 20 Other: Voiding Method Urinal Urinal # Voids 3 # Bowel Movements 1 1 - Exam - Constitutional General appearance: disheveled, morbidly obese - EENT Eyes: PERRLA Ears: bilateral: normal - Neck Neck: normal ROM Carotids: bilateral: upstroke normal - Respiratory Respiratory: bilateral: diminished - Cardiovascular Rhythm: regular Heart sounds: normal: S1, S2 - Gastrointestinal General gastrointestinal: normal bowel sounds - Integumentary bilateral foot infection with left foot more than the right side - Neurologic Neurologic: CNII-XII intact - Musculoskeletal Musculoskeletal: gait normal, generalized weakness, strength equal bilaterally - Psychiatric Psychiatric: A&O x's 3, appropriate affect, intact judgment & insight - Labs CBC & Chem 7: 12/14/20 07:06 12/14/20 07:06 Labs: Abnormal Lab Results - Last 24 Hours (Table) 12/14/20 12/14/20 12/14/20 Range/Units 11:45 14:38 16:51 POC Glucose (mg/dL) 170 H 144 H 188 H (75-99) mg/dL 12/14/20 12/15/20 Range/Units 20:33 06:19 POC Glucose (mg/dL) 231 H 340 H (75-99) mg/dL Assessment and Plan Assessment: sepsis involving bilateral foot infection and cellulitis Atypical pneumonia Chronic kidney disease Uncontrolled diabetes and neuropathy along with vasculopathy hypertension hypertensive cardiovascular disease Dyslipidemia Morbid obesity and likely obstructive sleep apnea Plan: continue deep breathing exercise incentive spirometry Follow clinical course closely with antibiotics Observe off of doxycycline Patient will need a sleep study as outpatient Further recommendations pending plan of care as per clinical response of patient Time with Patient: Greater than 30
[2020-12-15 10:55] VITALS: BMI 32.9
[2020-12-15] MEDS ORDERED: LIDOCAINE 1% INJ 10MG/ML (20 ML MDV) ONE (11:03)
[2020-12-15] MEDS ORDERED: LIDOCAINE 1% INJ 10MG/ML (20 ML MDV) SQ ONE (11:38)
[2020-12-15 12:13] LABS: Glucose,Whole Blood 229 mg/dL (75-99)
--- NOTE | 2020-12-15 12:23 | IR ---
PICC LINE PLACEMENT: HISTORY: Infection requiring long-term antibiotic therapy PROCEDURE: Ultrasound and fluoroscopic guidance of PICC line placement. COMPLICATIONS: None ANESTHESIA: 1. 1% Lidocaine locally. FINDINGS/TECHNIQUE: The procedure was explained to the patient. The risks, complications, benefits and alternatives were discussed and any questions were answered. Informed consent was obtained. The patient was placed supine on the fluoroscopic table and prepped and draped in the usual sterile fash ion. Utilizing a 21 gauge needle and sonographic and fluoroscopic guidance, access in the right bas ilic vein was achieved and there is placement of a 0.018 guidewire. The vein is patent. A 4-F sheat h was placed over the guidewire. The guidewire and dilator were removed and a 4-F. PICC line was carisa maria isabel through the sheath with the tip at the level of the SVC. The sheath was removed, the catheter wa s flushed and sutured into position. The patient was stable throughout the procedure and remained st able upon discharge from the Department of Radiology. The vein puncture was patent under ultrasound. A piña scale image was obtained to document patency of the vein punctured. All elements of the maximal barrier technique were utilized. FLUOROSCOPY TIME: 0.3 minutes and one image submitted IMPRESSION: Successful PICC line placement under ultrasound and fluoroscopic guidance.
--- NOTE | 2020-12-15 12:40 | CDI ---
Documentation Clarification Form Date: 12/15/2020 12:28:14 PM From: Sophia Sommer RN, CCDS Admit Date: 12/06/2020 09:30:00 AM Patient Name: Cruz Sorenson V Visit Number: [id number] ATTENTION: The Clinical Documentation Specialists (CDI) and [facility] Coding Staff appreciate your assistance in clarifying documentation. Please respond to the clarification below the line at the bottom and electronically sign. The CDI & [facility] Coding staff will review the response and follow-up if needed. Please note: Queries are made part of the Legal Health Record. If you have any questions, please contact the author of this message via ITS. Dr. Johny Granado Osteomyelitis has been documented in the 12/11 & 12/12 Attending progress notes in a patient with documented uncontrolled DM2, and requires further clarification. History/Risk Factors: uncontrolled DM2 with elevated blood sugar, CKD stage 3, bilateral lower extremity cellulitis, neuropathy, Ischemic cardiomyopathy w/ AICD, intermittent claudication, PTCA, PAD, Ex-smoker, Charcot arthropathy Clinical Indicators: 12/06 ID Consult: " Patient admitted to the hospital with a fever, elevated white count, sepsis, source is likely left lower extremity wound with secondary cellulitis. Underlying diabetes." 12/11 Attending Progress note: "Osteomyelitis" 12/12 Attending Progress Note: "Remains on broad-spectrum antibiotics for severe cellulitis and osteomyelitis of the legs." 12/06 left Foot XR: "No suspicious bony destruction or abnormal periosteal reaction to suggest acute osteomyelitis. Significant arterial vascular calcification." 12/14 Arterial Doppler: Impression: Suggests mild to moderate left fem-pop disease with perfusion possibly adequate for healing. At least moderate right fem-pop disease. Tissue perfusion marginal." 12/06-12/15 Labs: WBC: 21.9/18.43/20.44/19.6/19.39/19.23/16.4 Neutrophils 19.7/15.19/16.81/16.2/15.4/15.21/13.5 CRP 328.9/11.4 12/08 Right foot wound cx: +Strep agalactiae Left foot Cx: + Anaerobic Gram + Cocci, Strep agalactiae, Staph aureus 12/16 Right foot Cx: + Anaerobic gram negative bacilli, Strep agalactiae, Enterococcus faecalis, Staph aureus Treatment: 12/14 Excisional Debridement Procedure Note: Sharp excisional debridement bilateral lower extremities Right ankle 7 x 3.5 x 0.2 cm to subcutaneous tissue Right foot 9 x 5 x 0.3 cm to bone Left ankle 2.3 x 1.7 x 0.2 cm to subcutaneous tissue Left foot 14 x 11 x 1 cm to bone] 12/06-12/09 Cefazolin 2gm IVPB q 12 hrs. 12/07-12/14 Vibramycin 100 mg Po BID 12/06 Zosyn 3.375mg IVPB Q 8 hrs. Vancomycin IVPB PTD Novolog SSI SQ and Levimir SQ insulin In your professional opinion, please specify the following: *Laterality and Location (if known, specify part of bone): Left Right Bilateral Upper Lower *Acuity: Acute Chronic Subacute Unable to Determine *Cause: Viral (specify organism if know): Bacterial (specify organism if know): Other (please specify): Unable to Determine *Associated condition (if applicable): Diabetic Major osseous defect (specify site) Other (please specify): (Last Revision: June 2017) MTDD
--- NOTE | 2020-12-15 12:53 | CDI ---
Documentation Clarification Form Date: 12/15/2020 12:51:06 PM From: Sophia Sommer RN, CCDS Admit Date: 12/06/2020 09:30:00 AM Patient Name: Cruz Sorenson V Visit Number: [id number] ATTENTION: The Clinical Documentation Specialists (CDI) and [facility] Coding Staff appreciate your assistance in clarifying documentation. Please respond to the clarification below the line at the bottom and electronically sign. The CDI & [facility] Coding staff will review the response and follow-up if needed. Please note: Queries are made part of the Legal Health Record. If you have any questions, please contact the author of this message via ITS. Dr. Johny Granado Cellulitis of the bilateral lower extremities in a patient with uncontrolled DM2 is documented in the H&P, Consults and progress notes and requires further specificity. Patient history/risk factors: Uncontrolled DM2 with elevated blood sugar, CKD stage 3, bilateral lower extremity cellulitis, neuropathy, Ischemic cardiomyopathy w/ AICD, intermittent claudication, PTCA, PAD, Ex-smoker, Charcot arthropathy Clinical Indicators: 12/06 ID Consult: " Patient admitted to the hospital with a fever, elevated white count, sepsis, source is likely left lower extremity wound with secondary cellulitis. Underlying diabetes." 12/07 Pulmonary Consult - 12/14 Pulmonary progress notes: "sepsis involving bilateral foot infection and cellulitis. Uncontrolled diabetes and neuropathy along with vasculopathy." 12/12 Attending Progress Note: "Remains on broad-spectrum antibiotics for severe cellulitis and osteomyelitis of the legs." 12/14 ID: "Patient with bilateral lower extremity wounds with secondary cellulitis, status post debridement." 12/06 Left Foot XR: "No suspicious bony destruction or abnormal periosteal reaction to suggest acute osteomyelitis. Significant arterial vascular calcification." 12/14 Arterial Doppler: Impression: Suggests mild to moderate left fem-pop disease with perfusion possibly adequate for healing. At least moderate right fem-pop disease. Tissue perfusion marginal." 12/06-12/15 Labs: WBC: 21.9/18.43/20.44/19.6/19.39/19.23/16.4 Neutrophils 19.7/15.19/16.81/16.2/15.4/15.21/13.5 CRP 328.9/11.4 12/08 Right foot wound cx: +Strep agalactiae Left foot Cx: + Anaerobic Gram + Cocci, Strep agalactiae, Staph aureus 12/16 Right foot Cx: + Anaerobic gram negative bacilli, Strep agalactiae, Enterococcus faecalis, Staph aureus 12/06 1734 V/S: temp 101.7, HR 88, RR 18, B/P 123/57, SPo2 95% RA Treatment: 12/14 Excisional Debridement Procedure Note: Sharp excisional debridement bilateral lower extremities Right ankle 7 x 3.5 x 0.2 cm to subcutaneous tissue Right foot 9 x 5 x 0.3 cm to bone Left ankle 2.3 x 1.7 x 0.2 cm to subcutaneous tissue Left foot 14 x 11 x 1 cm to bone] 12/06-12/09 Cefazolin 2gm IVPB q 12 hrs. 12/07-12/14 Vibramycin 100 mg Po BID 12/06 Zosyn 3.375mg IVPB Q 8 hrs. Vancomycin IVPB PTD Novolog SSI SQ and Levimir SQ insulin Consults: Vascular and ID In your professional opinion, can Cellulitis be further specified as one of the following? Bilateral Lower Extremity Cellulitis due to DM2 Bilateral Lower Extremity Cellulitis is not related to DM2 Please also specify Infectious agent: Bacteria Virus Other, please specify: Unable to determine (Last Revision: June 2017) MTDD
--- NOTE | 2020-12-15 13:29 | CDI ---
Documentation Clarification Form Date: 12/15/2020 01:24:37 PM From: Sophia Sommer RN, CCDS Admit Date: 12/06/2020 09:30:00 AM Patient Name: Cruz Sorenson V Visit Number: [id number] ATTENTION: The Clinical Documentation Specialists (CDI) and [facility] Coding Staff appreciate your assistance in clarifying documentation. Please respond to the clarification below the line at the bottom and electronically sign. The CDI & [facility] Coding staff will review the response and follow-up if needed. Please note: Queries are made part of the Legal Health Record. If you have any questions, please contact the author of this message via ITS. Dr. Johny Granado The patient has Uncontrolled Diabetes, as indicated in 12/06 H&P, subsequent Consults, and progress notes and requires further specificity. History/Risk Factors: Uncontrolled DM2 with elevated blood sugar, CKD stage 3, bilateral lower extremity cellulitis, neuropathy, Ischemic cardiomyopathy w/ AICD, intermittent claudication, PTCA, PAD, Ex-smoker, Charcot arthropathy Clinical Indicators: 12/06 ED Note: "65-year-old male with a past medical history of IDDM type II, neuropathy, bilateral leg wounds, PAD, chronic renal disease presents to the emergency room for a chief complaint of high blood sugar and fever." 12/06 H&P: "Uncontrolled diabetes mellitus. Elevated blood sugar secondary to sepsis." 12/07 Pulmonary Consult- 12/15 Pulmonary Progress notes: "Uncontrolled diabetes and neuropathy along with vasculopathy." 12/06 ID Consult: " Patient admitted to the hospital with a fever, elevated white count, sepsis, source is likely left lower extremity wound with secondary cellulitis. Underlying diabetes." 12/06-12/15 Labs: + Acetone on 12/06, Glucose 293/265/249/234/209/284/355/231/340 Treatment: 12/06 Sliding Scale Novolog 12/09-12/10 Levemir SQ HS 35 units 12/06 0.9%NS IVF bolus 500 cc followed by 75cc/hr. In order to capture the severity of Illness and necessary documentation specificity, please clarify: DM Type 2 with hyperglycemia DM due to underlying condition, specify (e.g. 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
[2020-12-15 17:00] LABS: Glucose,Whole Blood 233 mg/dL (75-99)
[2020-12-15 20:29] LABS: Glucose,Whole Blood 192 mg/dL (75-99)
--- NOTE | 2020-12-15 21:50 | PN ---
PROGRESS NOTE This is a 65-year-old white male with bilateral lower extremity wounds. He had debridement of his right and left foot. He is able to move his lower extremities. He had a PICC line placement today. VITAL SIGNS: Temperature 98.2, pulse 69, respiratory rate 16 to 18, blood pressure 124/68, O2 96% on room air. CARDIOVASCULAR: S1, S2. LUNGS: Clear. GI: Soft. HEMATOLOGY: Negative Homans. PSYCH: Fair mood and affect. Left leg is in a dressing wrap with Jose wrap. White count is 16.4, hemoglobin 7.7. ASSESSMENT: 1. Postoperative day 4, bilateral lower extremity wound debridement. 2. Nonhealing ulcers in the legs. 3. Fever. 4. Diabetes mellitus. 5. Neuropathy. 6. Ischemic cardiomyopathy. 7. Peripheral vascular disease. 8. Chronic anemia. 9. Chronic kidney disease. Wet-to-dry dressings. Physical therapy. Follow up at the wound care center. He will likely need bilateral lower extremity [id number] amputations. Discussed this with the patient. MMODL / IJN: [id number] /
--- NOTE | 2020-12-15 22:54 | PN ---
PROGRESS NOTE DATE OF SERVICE: 12/15/2020 REASON FOR FOLLOWUP: Bilateral foot wounds and cellulitis. INTERVAL HISTORY: The patient is currently afebrile. The patient is breathing comfortably. Denies having any chest pain or shortness of breath or cough. No abdominal pain or any worsening pain to the lower extremity wounds. PHYSICAL EXAMINATION: Blood pressure 133/56, pulse of 69, temperature 99. He is 98% on room air. General description is a middle-aged male lying in bed in no distress. RESPIRATORY SYSTEM: Unlabored breathing. Clear to auscultation anteriorly. HEART: S1, S2. Regular rate and rhythm. ABDOMEN: Soft. No tenderness. LABS: No new labs have been obtained today. DIAGNOSTIC IMPRESSION AND PLAN: Patient with bilateral foot wounds, left greater than right, status post debridement. Culture with anaerobes, MSSA, strep, enterococcus. Patient is covered with Unasyn and did get a PICC line today. Plan is for at least 4 weeks of antibiotics while monitoring his clinical response and monitor his clinical course closely. MMODL / IJN: [id number] /
[2020-12-16] MEDS: SODIUM CHLORIDE 0.9% 1,000 ML IV SCH ×2 (00:09→12:53)
[2020-12-16] MEDS: LEVOTHYROXINE 100 MCG TAB PO SCH (06:17)
[2020-12-16] MEDS: LEVOTHYROXINE 50 MCG TAB PO SCH (06:17)
[2020-12-16] MEDS: INSULIN ASPART (NovoLOG) 100 UNIT/ML VIAL SQ SCH ×4 (06:18→20:44)
[2020-12-16] MEDS: AMPICILLIN-SULBACTAM 3 GM in SODIUM CHLORIDE 0.9% 100 ML IVPB SCH ×4 (06:18→23:26)
[2020-12-16 06:31] LABS: Glucose,Whole Blood 199 mg/dL (75-99)
[2020-12-16 08:13] LABS: Potassium 4.3 mmol/L (3.5-5.1); Total Protein 5.2 g/dL (6.3-8.2)
[2020-12-16 08:15] LABS: Total Bilirubin 0.4 mg/dL (0.2-1.3)
[2020-12-16 08:19] LABS: Anisocytosis Slight; Basophils % (A) 0 %; Eosinophils # (A) 0.2 k/uL (0-0.7); Eosinophils % (A) 1 %; HCT 23.9 % (39.0-53.0); HGB 7.5 gm/dL (13.0-17.5); Hypochromasia Moderate; Lymphocytes # (A) 1.4 k/uL (1.0-4.8); Lymphocytes % (A) 11 %; MCH 25.4 pg (25.0-35.0); MCHC 31.6 g/dL (31.0-37.0); MCV 80.4 fL (80.0-100.0); Mean Platelet Volume 7.5; Monocytes # (A) 0.7 k/uL (0-1.0); Monocytes % (A) 6 %; Neutrophils # (A) 10.6 k/uL (1.3-7.7); Neutrophils % (A) 81 %; Platelet Count 456 k/uL (150-450); RBC 2.97 m/uL (4.30-5.90); RDW 16.2 % (11.5-15.5); WBC 13.1 k/uL (3.8-10.6)
[2020-12-16] MEDS: FENOFIBRATE 160 MG TAB PO SCH (08:26)
[2020-12-16] MEDS: METOPROLOL TARTRATE 25 MG TAB PO SCH (08:26)
[2020-12-16] MEDS: LOSARTAN 50 MG TAB PO SCH (08:26)
[2020-12-16] MEDS: ASPIRIN 81 MG PO SCH (08:26)
[2020-12-16] MEDS: FUROSEMIDE 20 MG TAB PO SCH (08:26)
[2020-12-16] MEDS: ATORVASTATIN 40 MG TAB PO SCH (08:26)
--- NOTE | 2020-12-16 09:07 | P.PN ---
Subjective Progress Note Date: 12/16/20 Principal diagnosis: sepsis involving bilateral foot infection and cellulitis Atypical pneumonia Chronic kidney disease Uncontrolled diabetes and neuropathy along with vasculopathy hypertension hypertensive cardiovascular disease Dyslipidemia Morbid obesity and likely obstructive sleep apnea 12/16/2020, patient seen eval examined during the rounds labs reviewed medications reviewed care plan discussed, respiratory status remains stable denies any chest pain breathing comfortably, hemoglobin stable white cell count is coming down, stable renal functions 12/15/2020, patient seen eval examined during the rounds status was debridement of the wound from the foot, respiratory status remained stable breathing comfortably denies any chest pain, remains afebrile with temperature 90.8, hemodynamically stable blood pressure 124/68, on room air oxygen saturation 96%, patient off of doxycycline on Unasyn for 4 foot infection now 12/14/2020, patient seen eval examined remains afebrile saturation is stable denies any cough or sputum production denies any chest pain, labs today for reviewed hemoglobin stable 7.7 white cell count is trending downwards 16.4, renal functions have been a stable 27/1.39 12/13/2020, patient seen eval examined respiratory status remains stable patient's wound care by vascular surgery,denies any chest pain cough or sputum production, remains on broad-spectrum antibiotics oxygen saturation 98% percent on room air 12/12/2020, patient seen eval examined during the rounds labs reviewed medications reviewed care plan discussed, respiratory status the remains stable patient sitting upright on the bed breathing comfortably, patient is scheduled for PICC line later on today also supposed to get wound debridement as well, denies any cough or sputum production, 12/09/2020, patient seen eval reexamined labs reviewed medications reviewed care plan discussed, on room air oxygen saturation 100%, patient remains afebrile and hemodynamically stable with slightly low blood pressure, this is a 65-year-old morbidly obese male with the prior medical history of type 2 diabetes mellitus with his complication and sequelae including peripheral arterial disease neuropathy and chronic leg wounds patient also has chronic renal failure, patient presented into the hospital with the increased blood sugar, also has a problem of shortness of breath had fever of 101, denies any cough or sputum production denies any chest pain, Dr. Ross from vascular surgery has been following him for lower extremity woundshim a patient used to smoke but quit several years ago he used to smoke 2 packs per day quit about 10- 14 years, his prior history also significant for bypass surgery and stent placement, his covid 19 testing is negative, white cell count is 21,900, hemoglobin is 8.4, BUN/creatinine 53 and 1.9,left foot x-ray noted to have Charcot-type arthropathy with soft tissue swelling, chest x-ray prominent interstitium/infiltrate,subtle pneumonia cannot be excludedThomas patient is on Vanco along with cephapirin wound care on consult Objective - Vital Signs Vital signs: Vital Signs Temp 98 F 12/16/20 08:15 Pulse 70 12/16/20 08:15 Resp 18 12/16/20 08:15 BP 161/76 12/16/20 08:15 Pulse Ox 95 12/16/20 08:15 Intake & Output 12/15/20 12/16/20 12/16/20 18:59 06:59 18:59 Intake Total 720 480 Output Total 450 100 250 Balance 270 380 -250 Weight 92.5 kg 94.5 kg Intake: Oral 720 480 Output: Urine 450 100 250 Other: Voiding Method Urinal Urinal # Voids 1 # Bowel Movements 1 1 - Exam - Constitutional General appearance: disheveled, morbidly obese - EENT Eyes: PERRLA Ears: bilateral: normal - Neck Neck: normal ROM Carotids: bilateral: upstroke normal - Respiratory Respiratory: bilateral: diminished - Cardiovascular Rhythm: regular Heart sounds: normal: S1, S2 - Gastrointestinal General gastrointestinal: normal bowel sounds - Integumentary bilateral foot infection with left foot more than the right side - Neurologic Neurologic: CNII-XII intact - Musculoskeletal Musculoskeletal: gait normal, generalized weakness, strength equal bilaterally - Psychiatric Psychiatric: A&O x's 3, appropriate affect, intact judgment & insight - Labs CBC & Chem 7: 12/16/20 07:18 12/16/20 07:18 Labs: Abnormal Lab Results - Last 24 Hours (Table) 12/15/20 12/15/20 12/15/20 Range/Units 12:09 16:58 20:28 WBC (3.8-10.6) k/uL RBC (4.30-5.90) m/uL Hgb (13.0-17.5) gm/dL Hct (39.0-53.0) % RDW (11.5-15.5) % Plt Count (150-450) k/uL Neutrophils # (1.3-7.7) k/uL BUN (9-20) mg/dL Creatinine (0.66-1.25) mg/dL Glucose (74-99) mg/dL POC Glucose (mg/dL) 229 H 233 H 192 H (75-99) mg/dL Calcium (8.4-10.2) mg/dL Alkaline Phosphatase (38-126) U/L Total Protein (6.3-8.2) g/dL Albumin (3.5-5.0) g/dL 12/16/20 12/16/20 12/16/20 Range/Units 06:15 07:18 07:18 WBC 13.1 H (3.8-10.6) k/uL RBC 2.97 L (4.30-5.90) m/uL Hgb 7.5 L (13.0-17.5) gm/dL Hct 23.9 L (39.0-53.0) % RDW 16.2 H (11.5-15.5) % Plt Count 456 H (150-450) k/uL Neutrophils # 10.6 H (1.3-7.7) k/uL BUN 31 H (9-20) mg/dL Creatinine 1.27 H (0.66-1.25) mg/dL Glucose 163 H (74-99) mg/dL POC Glucose (mg/dL) 199 H (75-99) mg/dL Calcium 8.0 L (8.4-10.2) mg/dL Alkaline Phosphatase 199 H (38-126) U/L Total Protein 5.2 L (6.3-8.2) g/dL Albumin 2.0 L (3.5-5.0) g/dL Assessment and Plan Assessment: sepsis involving bilateral foot infection and cellulitis Atypical pneumonia off of doxycycline Chronic kidney disease Uncontrolled diabetes and neuropathy along with vasculopathy hypertension hypertensive cardiovascular disease Dyslipidemia Morbid obesity and likely obstructive sleep apnea Plan: continue deep breathing exercise incentive spirometry Follow clinical course closely with antibiotics Observe off of doxycycline Patient will need a sleep study as outpatient Further recommendations pending plan of care as per clinical response of patient Time with Patient: Greater than 30
[2020-12-16 12:10] LABS: Glucose,Whole Blood 248 mg/dL (75-99)
--- NOTE | 2020-12-16 12:33 | P.PN ---
Subjective Progress Note Date: 12/16/20 Principal diagnosis: Bilateral lower extremity wounds Seen and examined lying in bed. She is status post debridement of bilateral two feet days ago. He denies any pain currently. He denies any acute changes through the night including fever or chills. Objective - Vital Signs Vital signs: Vital Signs Temp 98 F 12/16/20 08:15 Pulse 70 12/16/20 08:15 Resp 18 12/16/20 08:15 BP 161/76 12/16/20 08:15 Pulse Ox 95 12/16/20 08:15 Intake & Output 12/15/20 12/16/20 12/16/20 18:59 06:59 18:59 Intake Total 720 480 Output Total 450 100 250 Balance 270 380 -250 Weight 92.5 kg 94.5 kg Intake: Oral 720 480 Output: Urine 450 100 250 Other: Voiding Method Urinal Urinal # Voids 1 # Bowel Movements 1 1 - Exam General appearance: The patient is alert, oriented, in no acute distress. HET: Head is normocephalic and atraumatic. Pupils are equal and reactive. Oropharynx is clear without lesions. Neck: Supple without lymphadenopathy. Trachea midline. Heart: S1 S2. Regular rate and rhythm. Lungs: Clear to auscultation. Abdomen: Soft, nontender, nondistended. Extremities: Debridement site of the plantar aspect left foot without any active bleeding down to bone. Right lower extremity debridement site plantar surface of foot without any bleeding, pink tissue. Dressings were changed to bilateral lower extremities Neurological: No focal deficits. Strength and sensation are grossly intact. - Labs CBC & Chem 7: 12/16/20 07:18 12/16/20 07:18 Labs: Abnormal Lab Results - Last 24 Hours (Table) 12/15/20 12/15/20 12/15/20 Range/Units 12:09 16:58 20:28 WBC (3.8-10.6) k/uL RBC (4.30-5.90) m/uL Hgb (13.0-17.5) gm/dL Hct (39.0-53.0) % RDW (11.5-15.5) % Plt Count (150-450) k/uL Neutrophils # (1.3-7.7) k/uL BUN (9-20) mg/dL Creatinine (0.66-1.25) mg/dL Glucose (74-99) mg/dL POC Glucose (mg/dL) 229 H 233 H 192 H (75-99) mg/dL Calcium (8.4-10.2) mg/dL Alkaline Phosphatase (38-126) U/L Total Protein (6.3-8.2) g/dL Albumin (3.5-5.0) g/dL 12/16/20 12/16/20 12/16/20 Range/Units 06:15 07:18 07:18 WBC 13.1 H (3.8-10.6) k/uL RBC 2.97 L (4.30-5.90) m/uL Hgb 7.5 L (13.0-17.5) gm/dL Hct 23.9 L (39.0-53.0) % RDW 16.2 H (11.5-15.5) % Plt Count 456 H (150-450) k/uL Neutrophils # 10.6 H (1.3-7.7) k/uL BUN 31 H (9-20) mg/dL Creatinine 1.27 H (0.66-1.25) mg/dL Glucose 163 H (74-99) mg/dL POC Glucose (mg/dL) 199 H (75-99) mg/dL Calcium 8.0 L (8.4-10.2) mg/dL Alkaline Phosphatase 199 H (38-126) U/L Total Protein 5.2 L (6.3-8.2) g/dL Albumin 2.0 L (3.5-5.0) g/dL Assessment and Plan Assessment: 1. Post op day #2 bilateral lower extremity wound debridement 2. Bilateral non-healing lower extremity wounds 3. Fever 4. Diabetes mellitus 5. Neuropathy 6. Ischemic cardiomyopathy 7. History of intermittent claudication/peripheral arterial disease 8. Chronic anemia 9. Chronic kidney disease Plan: 1. Continue IV antibiotics per infectious disease 2. Daily wet-to-dry dressing changes 3. Continue current medical treatment 5. Physical therapy ordered, recommend non-weight bearing on left foot and may have weight bearing on right heal 6. Discussed with patient he will need outpatient follow-up with the wound care center, and will likely need bilateral lower extremity below the knee amputation 7. Case management for ECF placement on consult 8. Patient may be discharged from a vascular surgical standpoint IThe above dictated assessment and findings were discussed with Dr. Barnhart. The impression and plan of care have been directed as dictated.
--- NOTE | 2020-12-16 14:30 | DS ---
DISCHARGE SUMMARY A 65-year-old white male, status post wound debridement x2 and PAD with extreme Charcot foot deformity and worsening wounds and necrotic material removed twice from his legs. He has high risk embolism both legs. He has some mild PAD blockage behind the right knee. Left leg is fairly good blood flow. Vascular says he will probably need bilateral knee amputations down the road. He will follow up at the wound clinic and is going to get IV antibiotics at home. DISCHARGE DIAGNOSES: 1. Peripheral arterial disease. 2. Charcot's foot. 3. Diabetic wound infection bilateral feet. 4. Cellulitis bilateral feet. 5. Chronic anemia. 6. Hypertension. 7. Chronic obstructive pulmonary disease. 8. Congestive heart failure. 9. Hypothyroidism. 10.Dyslipidemia. HOME MEDICINES: 1. Aspirin 81 mg daily. 2. Calcium carbonate 1000 q.i.d. 3. Unasyn 3 grams IV piggyback q.6. 4. Losartan 50 daily. 5. Accu-Chek protocol. 6. Fenofibrate 160 daily. 7. Metoprolol tartrate 25 daily. 8. Levothyroxine 250 mcg daily. 9. Lipitor 40 at bedtime. 10.Toujeo 35 units at night. 11.Lasix 20 mg daily. 12.Trulicity 3 mg once a week. 13.Tylenol 1000 q.6. CONDITION: Stable. PROGNOSIS: Guarded. AMBULATE: As tolerated. Follow up in office in a week. MMODL / IJN: [id number] /
[2020-12-16 15:31] LABS: Anisocytosis Slight; Basophils % (A) 0 %; Eosinophils # (A) 0.2 k/uL (0-0.7); Eosinophils % (A) 1 %; HCT 25.8 % (39.0-53.0); HGB 7.9 gm/dL (13.0-17.5); Hypochromasia Marked; Lymphocytes # (A) 1.3 k/uL (1.0-4.8); Lymphocytes % (A) 10 %; MCH 24.8 pg (25.0-35.0); MCHC 30.8 g/dL (31.0-37.0); MCV 80.7 fL (80.0-100.0); Mean Platelet Volume 7.4; Monocytes # (A) 0.6 k/uL (0-1.0); Monocytes % (A) 5 %; Neutrophils # (A) 10.8 k/uL (1.3-7.7); Neutrophils % (A) 83 %; Platelet Count 455 k/uL (150-450)
[2020-12-16 16:47] LABS: Glucose,Whole Blood 303 mg/dL (75-99)
--- NOTE | 2020-12-16 17:18 | PN ---
PROGRESS NOTE DATE OF SERVICE: 12/16/2020 REASON FOR FOLLOWUP: Bilateral diabetic foot ulcers and cellulitis. INTERVAL HISTORY: The patient is currently afebrile. The patient is breathing comfortably. The patient denies having any chest pain or shortness of breath or cough. No abdominal pain or pain to the bilateral foot wound areas. PHYSICAL EXAMINATION: Blood pressure 114/53, pulse of 66, temperature 97.9. He is 98% on room air. General description is a middle-aged male lying in bed in no distress. RESPIRATORY SYSTEM: Unlabored breathing. Clear to auscultation anteriorly. HEART: S1, S2. Regular rate and rhythm. ABDOMEN: Soft. No tenderness. Bilateral foot wounds are currently dressed. No obvious drainage on the dressing. LABS: Hemoglobin is now 7.9, white count 13. DIAGNOSTIC IMPRESSION AND PLAN: Patient with bilateral diabetic foot ulcers with secondary cellulitis. Cultures have been positive for multiple pathogens, including MSSA, enterococcus, strep. The patient is on Unasyn; to continue for 2-3 weeks. Local wound care would benefit from a wound V.A.C. However, currently being managed by Vascular Surgery. Will benefit from followup in the wound care center. Continue with supportive care. MMODL / IJN: [id number] /
[2020-12-16 20:00] LABS: Glucose,Whole Blood 249 mg/dL (75-99)
--- NOTE | 2020-12-16 21:16 | CONS ---
CONSULTATION DATE OF DICTATION: 12/16/2020 REASON FOR CONSULTATION: Diarrhea and GI bleed. HISTORY OF PRESENT ILLNESS: The patient is a 65-year-old pleasant white male with a history of diabetes mellitus, hypertension, hyperlipidemia, bilateral lower extremity wounds, chronic kidney disease. He was admitted to the hospital with cellulitis and worsening lower extremity wounds with fever. He was seen by Vascular Surgery. He underwent debridement and presently on broad-spectrum antibiotics. The patient is doing well and he was being discharged home today. However, he started complaining of diarrhea and had a bowel movement that had bright red blood in the stool. The discharge was canceled and GI was consulted. The patient denies any abdominal pain. He reports no nausea, vomiting. He states that he was started on antibiotics about 4 or 5 days ago. He has been having some loose bowel movements, usually 1 or 2 a day, but today he had about 4 episodes. The last bowel movement had bright red blood in the stool. He is not on any anticoagulants other than aspirin. His last colonoscopy was done by Dr. Schilling in May of 2020 that showed diverticulosis. PAST MEDICAL HISTORY: Significant for diabetes mellitus, hypertension, hyperlipidemia, bilateral lower extremity chronic wounds, chronic kidney disease, hypothyroidism. MEDICATIONS: Medications at home include Benefiber, losartan, Lipitor, Synthroid, metoprolol, Trulicity, Lasix, Toujeo and Tylenol p.r.n. ALLERGIES: NONE. SOCIAL HISTORY: Chronic smoker. No alcohol use. FAMILY HISTORY: Father had coronary artery disease. Brother had coronary artery disease, diabetes mellitus and hypertension. Mother had diabetes mellitus and chronic kidney disease. PAST SURGICAL HISTORY: CABG, cardiac catheterization with stent placement, pacemaker implantation, bilateral cataract surgeries, AICD placement. REVIEW OF SYSTEMS: CARDIOPULMONARY: He denies any chest pain or shortness of breath. GENITOURINARY: No dysuria or hematuria. MUSCULOSKELETAL: Chronic lower extremity wound infections. SKIN: Unremarkable. ENDOCRINE: Unremarkable. PSYCHIATRIC: Unremarkable. NEUROLOGY: Unremarkable. ENT/VISION: Unremarkable. CONSTITUTIONAL: No recent weight loss. No fever, chills, night sweats. GI: As mentioned above. PHYSICAL EXAMINATION: He appears comfortable. VITAL SIGNS: Stable. Blood pressure is 133/53, pulse rate 66, temperature 97.9. HEENT examination unremarkable. Conjunctivae pink. Sclerae anicteric. Oral cavity no lesions. NECK: No JVD or lymph node enlargement. CHEST: Clear to auscultation. HEART: Regular rate and rhythm. ABDOMEN: Soft. Bowel sounds are positive. No organomegaly. EXTREMITIES: No pedal edema. Bilateral lower extremity wound infections that are bandaged. LABS: Labs from today show WBC 13, hemoglobin 7.9, platelets 455. Four days ago hemoglobin was 6.8 and he received one unit of PRBC transfusion. BUN is 31, creatinine 1.27. AST and ALT are within normal limits. T-bilirubin normal, alkaline phosphatase 199. IMPRESSION: 1. Diarrhea with rectal bleeding for the last 3-4 days' duration. The patient had only one episode of rectal bleeding this afternoon. Hemoglobin stable at 7.9 g/dL. Patient believes that the diarrhea began after he was started on IV antibiotics for chronic lower extremity wound infection. Rule out C difficile colitis. Patient had a colonoscopy in May of [address] Schilling that showed diverticulosis. 2. Bilateral lower extremity wound infections, on broad-spectrum antibiotics. 3. Longstanding history of diabetes mellitus with peripheral neuropathy. 4. History of hypertension and hyperlipidemia. 5. History of chronic kidney disease. RECOMMENDATIONS: 1. Obtain stool cultures and C difficile toxin. 2. Continue with current antibiotics. 3. Monitor CBC daily. 4. No plans for any endoscopic intervention at the present time. 5. Will follow with you closely. Thank you for this consultation. MMODL / IJN: [id number] /
[2020-12-17 06:29] LABS: Glucose,Whole Blood 181 mg/dL (75-99)
[2020-12-17] MEDS: LEVOTHYROXINE 50 MCG TAB PO SCH (06:37)
[2020-12-17] MEDS: AMPICILLIN-SULBACTAM 3 GM in SODIUM CHLORIDE 0.9% 100 ML IVPB SCH ×3 (06:37→18:37)
[2020-12-17] MEDS: LEVOTHYROXINE 100 MCG TAB PO SCH (06:37)
[2020-12-17] MEDS: INSULIN ASPART (NovoLOG) 100 UNIT/ML VIAL SQ SCH ×4 (06:37→20:16)
[2020-12-17] MEDS: SODIUM CHLORIDE 0.9% 1,000 ML IV SCH (06:52)
[2020-12-17] MEDS: METOPROLOL TARTRATE 25 MG TAB PO SCH (09:21)
[2020-12-17] MEDS: LOSARTAN 50 MG TAB PO SCH (09:21)
[2020-12-17] MEDS: ASPIRIN 81 MG PO SCH (09:21)
[2020-12-17] MEDS: FENOFIBRATE 160 MG TAB PO SCH (09:22)
[2020-12-17] MEDS: ATORVASTATIN 40 MG TAB PO SCH (09:22)
[2020-12-17] MEDS: FUROSEMIDE 20 MG TAB PO SCH (09:22)
[2020-12-17 10:13] LABS: Anisocytosis Slight; HCT 26.8 % (39.0-53.0); HGB 8.8 gm/dL (13.0-17.5); Hypochromasia Slight; MCHC 32.8 g/dL (31.0-37.0); MCV 79.4 fL (80.0-100.0); Mean Platelet Volume 7.8; Platelet Count 371 k/uL (150-450); RBC 3.38 m/uL (4.30-5.90); RDW 16.2 % (11.5-15.5); WBC 11.9 k/uL (3.8-10.6)
[2020-12-17 10:28] LABS: Eosinophils # (M) 0.24 k/uL (0-0.7); Monocytes # (M) 0.83 k/uL (0-1.0); Neutrophils # (M) 8.93 k/uL (1.3-7.7); Neutrophils % (M) 75 %; Nucleated Red Blood Cells 0 /100 WBC (0-0); Total Cells Counted 100
--- NOTE | 2020-12-17 10:40 | PN ---
PROGRESS NOTE DATE OF SERVICE: 12/17/2020 The patient is a 65-year-old pleasant white male seen on consultation yesterday for diarrhea and rectal bleeding. He had three episodes of diarrhea followed by one episode of rectal bleeding last night. In the meantime, stool for C difficile toxin was ordered because the patient is currently on antibiotics for chronic lower wound infection. He is feeling better. He had one episode of bowel movement in the middle of the night and patient states that there was small streak of fresh blood noted. No bowel movements since this morning. PHYSICAL EXAMINATION: He appears comfortable. No apparent distress. VITAL SIGNS: Stable. Blood pressure is 112/86, pulse rate 82 per minute and afebrile. HEENT examination unremarkable. Conjunctivae pink. Sclerae anicteric. Oral cavity, no lesions. NECK: No JVD or lymph node enlargement. CHEST: Clear to auscultation. HEART: Regular rate and rhythm. ABDOMEN: Soft. Bowel sounds are positive. No organomegaly. NEUROLOGIC: Alert and oriented x3. No focal deficits. EXTREMITIES: Lower extremity wound infection. LABS: No labs are available from today. IMPRESSION: 1. Diarrhea with rectal bleeding x1 yesterday. The patient clinically doing better, no further bleeding. This morning he remains hemodynamically stable. Stool cultures and C difficile toxin are still pending. 2. Chronic lower extremity wound infection, on broad-spectrum antibiotics. 3. History of hypertension and hyperlipidemia. 4. History of diabetes mellitus. RECOMMENDATIONS: 1. Await stool cultures. 2. Monitor for symptoms. 3. Await CBC results. 4. No plans on any endoscopic intervention at this time. 5. We will follow with you closely. Thank you for this consultation. MMODL / IJN: [id number] /
--- NOTE | 2020-12-17 11:13 | P.PN ---
Subjective Progress Note Date: 12/17/20 Principal diagnosis: sepsis involving bilateral foot infection and cellulitis Atypical pneumonia Chronic kidney disease Uncontrolled diabetes and neuropathy along with vasculopathy hypertension hypertensive cardiovascular disease Dyslipidemia Morbid obesity and likely obstructive sleep apnea 12/17/2020, patient seen eval examined during the rounds labs reviewed medications reviewed care plan discussed, respiratory status remains stable off of oxygen breathing comfortably denies any cough or sputum production 12/16/2020, patient seen eval examined during the rounds labs reviewed medications reviewed care plan discussed, respiratory status remains stable denies any chest pain breathing comfortably, hemoglobin stable white cell count is coming down, stable renal functions 12/15/2020, patient seen eval examined during the rounds status was debridement of the wound from the foot, respiratory status remained stable breathing comfortably denies any chest pain, remains afebrile with temperature 90.8, hemodynamically stable blood pressure 124/68, on room air oxygen saturation 96%, patient off of doxycycline on Unasyn for 4 foot infection now 12/14/2020, patient seen eval examined remains afebrile saturation is stable denies any cough or sputum production denies any chest pain, labs today for reviewed hemoglobin stable 7.7 white cell count is trending downwards 16.4, renal functions have been a stable 27/1.39 12/13/2020, patient seen eval examined respiratory status remains stable patient's wound care by vascular surgery,denies any chest pain cough or sputum production, remains on broad-spectrum antibiotics oxygen saturation 98% percent on room air 12/12/2020, patient seen eval examined during the rounds labs reviewed medications reviewed care plan discussed, respiratory status the remains stable patient sitting upright on the bed breathing comfortably, patient is scheduled for PICC line later on today also supposed to get wound debridement as well, denies any cough or sputum production, 12/09/2020, patient seen eval reexamined labs reviewed medications reviewed care plan discussed, on room air oxygen saturation 100%, patient remains afebrile and hemodynamically stable with slightly low blood pressure, this is a 65-year-old morbidly obese male with the prior medical history of type 2 diabetes mellitus with his complication and sequelae including peripheral arterial disease neuropathy and chronic leg wounds patient also has chronic r enal failure, patient presented into the hospital with the increased blood sugar, also has a problem of shortness of breath had fever of 101, denies any cough or sputum production denies any chest pain, Dr. Ross from vascular surgery has been following him for lower extremity woundshim a patient used to smoke but quit several years ago he used to smoke 2 packs per day quit about 10- 14 years, his prior history also significant for bypass surgery and stent placement, his covid 19 testing is negative, white cell count is 21,900, hemoglobin is 8.4, BUN/creatinine 53 and 1.9,left foot x-ray noted to have Charcot-type arthropathy with soft tissue swelling, chest x-ray prominent interstitium/infiltrate,subtle pneumonia cannot be excludedThomas patient is on Vanco along with cephapirin wound care on consult Objective - Vital Signs Vital signs: Vital Signs Temp 98.3 F 12/17/20 08:00 Pulse 72 12/17/20 08:00 Resp 16 12/17/20 08:00 BP 127/64 12/17/20 08:00 Pulse Ox 97 12/17/20 08:00 Intake & Output 12/16/20 12/17/20 12/17/20 18:59 06:59 18:59 Intake Total 1420 1740 480 Output Total 1500 650 Balance -80 1090 480 Weight 93 kg Intake: Intake, IV Titration 700 850 Amount Ampicillin-Sulbactam 3 gm 100 100 In Sodium Chloride 0.9% 100 ml @ 200 mls/hr IVPB Q6HR VICK Rx#:[id number] Sodium Chloride 0.9% 1, 600 750 000 ml @ 75 mls/hr IV . [id number] VICK Rx#:[id number] Oral 720 890 480 Output: Urine 1500 650 Other: Voiding Method Urinal # Bowel Movements 2 1 - Exam - Constitutional General appearance: disheveled, morbidly obese - EENT Eyes: PERRLA Ears: bilateral: normal - Neck Neck: normal ROM Carotids: bilateral: upstroke normal - Respiratory Respiratory: bilateral: diminished - Cardiovascular Rhythm: regular Heart sounds: normal: S1, S2 - Gastrointestinal General gastrointestinal: normal bowel sounds - Integumentary bilateral foot infection with left foot more than the right side - Neurologic Neurologic: CNII-XII intact - Musculoskeletal Musculoskeletal: gait normal, generalized weakness, strength equal bilaterally - Psychiatric Psychiatric: A&O x's 3, appropriate affect, intact judgment & insight - Labs CBC & Chem 7: 12/17/20 08:50 12/16/20 07:18 Labs: Abnormal Lab Results - Last 24 Hours (Table) 12/16/20 12/16/20 12/16/20 Range/Units 11:46 15:13 16:44 WBC 13.0 H (3.8-10.6) k/uL RBC 3.20 L (4.30-5.90) m/uL Hgb 7.9 L (13.0-17.5) gm/dL Hct 25.8 L (39.0-53.0) % MCV (80.0-100.0) fL MCH 24.8 L (25.0-35.0) pg MCHC 30.8 L (31.0-37.0) g/dL RDW 16.0 H (11.5-15.5) % Plt Count 455 H (150-450) k/uL Neutrophils # 10.8 H (1.3-7.7) k/uL Neutrophils # (Manual) (1.3-7.7) k/uL POC Glucose (mg/dL) 248 H 303 H (75-99) mg/dL 12/16/20 12/17/20 12/17/20 Range/Units 19:58 06:21 08:50 WBC 11.9 H (3.8-10.6) k/uL RBC 3.38 L (4.30-5.90) m/uL Hgb 8.8 L (13.0-17.5) gm/dL Hct 26.8 L (39.0-53.0) % MCV 79.4 L (80.0-100.0) fL MCH (25.0-35.0) pg MCHC (31.0-37.0) g/dL RDW 16.2 H (11.5-15.5) % Plt Count (150-450) k/uL Neutrophils # (1.3-7.7) k/uL Neutrophils # (Manual) 8.93 H (1.3-7.7) k/uL POC Glucose (mg/dL) 249 H 181 H (75-99) mg/dL Microbiology - Last 24 Hours (Table) 12/17/20 00:11 Stool Culture - Preliminary Stool Assessment and Plan Assessment: sepsis involving bilateral foot infection and cellulitis Atypical pneumonia off of doxycycline Chronic kidney disease Uncontrolled diabetes and neuropathy along with vasculopathy hypertension hypertensive cardiovascular disease Dyslipidemia Morbid obesity and likely obstructive sleep apnea Plan: continue deep breathing exercise incentive spirometry Follow clinical course closely with antibiotics Observe off of doxycycline Patient will need a sleep study as outpatient Further recommendations pending plan of care as per clinical response of patient Time with Patient: Greater than 30
[2020-12-17 11:40] LABS: Glucose,Whole Blood 258 mg/dL (75-99)
[2020-12-17 16:38] LABS: Glucose,Whole Blood 252 mg/dL (75-99)
--- NOTE | 2020-12-17 17:53 | PN ---
PROGRESS NOTE DATE OF SERVICE: 12/17/2020 REASON FOR FOLLOWUP: Bilateral diabetic foot ulcer with secondary cellulitis. INTERVAL HISTORY: The patient is currently afebrile. The patient is feeling slightly better. The patient's discharge has been put on hold because of the bleeding from the rectum yesterday, being managed by the GI Team. Denies any chest pain, shortness of breath, abdominal pain, or any worsening pain in the bilateral foot wound area. PHYSICAL EXAMINATION: Blood pressure 127/67, pulse of 61, temperature 98.3, he is 96% on room air. GENERAL DESCRIPTION: A middle-aged male lying in bed in no distress. RESPIRATORY SYSTEM: Unlabored breathing, clear to auscultation anteriorly. HEART: S1, S2. Regular rate and rhythm. ABDOMEN: Soft, no tenderness. EXTREMITIES: Bilateral foot wounds have been dressed with no drainage on the dressings. LABORATORY DATA: Hemoglobin 8.2, white count 11.9. DIAGNOSTIC IMPRESSION AND PLAN: Patient with bilateral diabetic foot ulcers and cellulitis, left greater than right. Culture positive for strep, Enterococcus, MSSA, and the patient is covered with Unasyn. He has a PICC line for outpatient antibiotic once stable from GI standpoint. Continue supportive care. MMODL / IJN: [id number] /
[2020-12-17 20:10] LABS: Glucose,Whole Blood 216 mg/dL (75-99)
[2020-12-18] MEDS: AMPICILLIN-SULBACTAM 3 GM in SODIUM CHLORIDE 0.9% 100 ML IVPB SCH ×4 (00:36→17:43)
[2020-12-18] MEDS: CALCIUM CARBONATE 500 MG CHEWABLE PO PRN (00:39)
[2020-12-18 06:05] LABS: Glucose,Whole Blood 164 mg/dL (75-99)
[2020-12-18] MEDS: LEVOTHYROXINE 50 MCG TAB PO SCH (06:25)
[2020-12-18] MEDS: LEVOTHYROXINE 100 MCG TAB PO SCH (06:25)
[2020-12-18] MEDS: INSULIN ASPART (NovoLOG) 100 UNIT/ML VIAL SQ SCH ×4 (06:26→21:36)
[2020-12-18 07:55] LABS: Anisocytosis Slight; Basophils % (A) 0 %; Eosinophils # (A) 0.2 k/uL (0-0.7); Eosinophils % (A) 2 %; HCT 24.6 % (39.0-53.0); HGB 7.8 gm/dL (13.0-17.5); Hypochromasia Moderate; Lymphocytes # (A) 1.4 k/uL (1.0-4.8); Lymphocytes % (A) 12 %; MCHC 31.7 g/dL (31.0-37.0); Mean Platelet Volume 7.5; Monocytes # (A) 0.6 k/uL (0-1.0); Monocytes % (A) 5 %; Neutrophils # (A) 8.5 k/uL (1.3-7.7); Neutrophils % (A) 79 %; Platelet Count 401 k/uL (150-450); RBC 3.11 m/uL (4.30-5.90); RDW 16.2 % (11.5-15.5); WBC 10.8 k/uL (3.8-10.6)
[2020-12-18] MEDS: SODIUM CHLORIDE 0.9% 1,000 ML IV SCH (09:31)
[2020-12-18] MEDS: FENOFIBRATE 160 MG TAB PO SCH (09:45)
[2020-12-18] MEDS: ASPIRIN 81 MG PO SCH (09:45)
[2020-12-18] MEDS: METOPROLOL TARTRATE 25 MG TAB PO SCH (09:45)
[2020-12-18] MEDS: LOSARTAN 50 MG TAB PO SCH (09:45)
[2020-12-18] MEDS: ATORVASTATIN 40 MG TAB PO SCH (09:45)
[2020-12-18] MEDS: FUROSEMIDE 20 MG TAB PO SCH (09:45)
[2020-12-18 11:36] LABS: Glucose,Whole Blood 167 mg/dL (75-99)
--- NOTE | 2020-12-18 12:31 | PN ---
PROGRESS NOTE DATE OF SERVICE: 12/17/2020 A 65-year-old white male admitted to the hospital with severe cellulitis and PAD and wound infections of bilateral legs, most likely requiring 6 weeks of IV antibiotics at home and if that fails, he will have to have below-knee amputations per Dr. Armenta. The patient has some GI bleeding and was kept in the hospital and had no further bleeding overnight. Hemoglobin was 8.4 yesterday on 12/17/2020. We are going to monitor him overnight 1 more night. Monitor for bleeding. Possibly discharged home tomorrow. His lungs are clear. Cardiovascular S1-S2. Psych fair mood and affect. no suprapubic tenderness. Hematologic, his wounds are dressed on the legs. ASSESSMENT: Acute gastrointestinal bleeding, most likely diverticular versus hemorrhoids. GI recommendations pending. Diabetes, decubitus wounds of severe nature, PAD, Charcot joint, left foot. Prognosis extremely guarded. Please see further orders. MMODL / IJN: [id number] /
--- NOTE | 2020-12-18 15:27 | PN ---
PROGRESS NOTE DATE OF SERVICE: 12/18/2020 INTERVAL HISTORY: Patient is a 65-year-old white male admitted to the hospital with bilateral lower extremity wound and presently on broad-spectrum antibiotics. While in the hospital for the last 2 days he had some small amount of bright red blood per rectum. His last colonoscopy in May of [address] Schilling showed diverticulosis and internal hemorrhoids. This morning he had one bowel movement with small streak of blood. No abdominal pain. No nausea, no vomiting. PHYSICAL EXAMINATION: GENERAL: Appears comfortable. VITAL SIGNS: Stable. Blood pressure 146/54, pulse rate 60, temperature 98. HEENT: Examination unremarkable. Conjunctivae are pink. Sclerae anicteric. Oral cavity no lesions. NECK: No JVD or lymph node enlargement. CHEST: Clear to auscultation. HEART: Regular rate and rhythm. ABDOMEN: Soft. Bowel sounds are positive. No organomegaly. EXTREMITIES: Bilateral lower extremity wounds. LABS: WBC 10.8, hemoglobin 7.8, and platelets are 401. IMPRESSION: 1. Intermittent rectal bleeding, probably from internal hemorrhoids. The patient had a colonoscopy by Dr. Schilling in May of 2020 that showed small internal hemorrhoids and diverticulosis. 2. Diarrhea secondary to antibiotics, resolved. 3. Bilateral lower extremity wound infection, on broad-spectrum antibiotics. RECOMMENDATION: 1. We will start the patient on a rectal suppository twice daily. 2. No plans on any endoscopic intervention. 3. If the hemoglobin remains stable, he can be discharged home tomorrow with outpatient followup in 2 weeks. Thank you for this consultation. MMODL / IJN: [id number] /
[2020-12-18 16:54] LABS: Glucose,Whole Blood 224 mg/dL (75-99)
[2020-12-18] MEDS: HYDROCORTISONE SUPPOSITORY 25 MG SUPP RECTAL SCH ×2 (17:44→21:36)
--- NOTE | 2020-12-18 19:51 | P.PN ---
Subjective Progress Note Date: 12/18/20 Principal diagnosis: sepsis involving bilateral foot infection and cellulitis Atypical pneumonia Chronic kidney disease Uncontrolled diabetes and neuropathy along with vasculopathy hypertension hypertensive cardiovascular disease Dyslipidemia Morbid obesity and likely obstructive sleep apnea 12/18/2020, patient seen eval reexamined during the rounds labs reviewed medications reviewed patient remains on room air breathing comfortably denies any chest pain denies any cough or sputum production, patient had just a new dressing in the feet and lower extremity 12/17/2020, patient seen eval examined during the rounds labs reviewed medications reviewed care plan discussed, respiratory status remains stable off of oxygen breathing comfortably denies any cough or sputum production 12/16/2020, patient seen eval examined during the rounds labs reviewed medications reviewed care plan discussed, respiratory status remains stable denies any chest pain breathing comfortably, hemoglobin stable white cell count is coming down, stable renal functions 12/15/2020, patient seen eval examined during the rounds status was debridement of the wound from the foot, respiratory status remained stable breathing comfortably denies any chest pain, remains afebrile with temperature 90.8, hemodynamically stable blood pressure 124/68, on room air oxygen saturation 96%, patient off of doxycycline on Unasyn for 4 foot infection now 12/14/2020, patient seen eval examined remains afebrile saturation is stable denies any cough or sputum production denies any chest pain, labs today for reviewed hemoglobin stable 7.7 white cell count is trending downwards 16.4, renal functions have been a stable 27/1.39 12/13/2020, patient seen eval examined respiratory status remains stable dave ent's wound care by vascular surgery,denies any chest pain cough or sputum production, remains on broad-spectrum antibiotics oxygen saturation 98% percent on room air 12/12/2020, patient seen eval examined during the rounds labs reviewed medications reviewed care plan discussed, respiratory status the remains stable patient sitting upright on the bed breathing comfortably, patient is scheduled f or PICC line later on today also supposed to get wound debridement as well, denies any cough or sputum production, 12/09/2020, patient seen eval reexamined labs reviewed medications reviewed care plan discussed, on room air oxygen saturation 100%, patient remains afebrile and hemodynamically stable with slightly low blood pressure, this is a 65-year-old morbidly obese male with the prior medical history of type 2 diabetes mellitus with his complication and sequelae including peripheral arterial disease neuropathy and chronic leg wounds patient also has chronic renal failure, patient presented into the hospital with the increased blood sugar, also has a problem of shortness of breath had fever of 101, denies any cough or sputum production denies any chest pain, Dr. Ross from vascular surgery has been following him for lower extremity woundshim a patient used to smoke but quit several years ago he used to smoke 2 packs per day quit about 10- 14 years, his prior history also significant for bypass surgery and stent placement, his covid 19 testing is negative, white cell count is 21,900, hemoglobin is 8.4, BUN/creatinine 53 and 1.9,left foot x-ray noted to have Charcot-type arthropathy with soft tissue swelling, chest x-ray prominent interstitium/infiltrate,subtle pneumonia cannot be excludedThomas patient is on Vanco along with cephapirin wound care on consult Objective - Vital Signs Vital signs: Vital Signs Temp 98.5 F 12/18/20 08:00 Pulse 84 12/18/20 16:00 Resp 18 12/18/20 16:00 BP 127/66 12/18/20 16:00 Pulse Ox 95 12/18/20 16:00 Intake & Output 12/18/20 12/18/20 12/19/20 06:59 18:59 06:59 Intake Total 580 Output Total 1275 Balance -1275 580 Weight 94 kg Intake: Oral 580 Output: Urine 1275 Other: Voiding Method Urinal # Voids 2 # Bowel Movements 1 1 - Exam - Constitutional General appearance: disheveled, morbidly obese - EENT Eyes: PERRLA Ears: bilateral: normal - Neck Neck: normal ROM Carotids: bilateral: upstroke normal - Respiratory Respiratory: bilateral: diminished - Cardiovascular Rhythm: regular Heart sounds: normal: S1, S2 - Gastrointestinal General gastrointestinal: normal bowel sounds - Integumentary bilateral foot infection with left foot more than the right side - Neurologic Neurologic: CNII-XII intact - Musculoskeletal Musculoskeletal: gait normal, generalized weakness, strength equal bilaterally - Psychiatric Psychiatric: A&O x's 3, appropriate affect, intact judgment & insight - Labs CBC & Chem 7: 12/18/20 07:26 12/16/20 07:18 Labs: Abnormal Lab Results - Last 24 Hours (Table) 12/17/20 12/18/20 12/18/20 Range/Units 20:08 06:02 07:26 WBC 10.8 H (3.8-10.6) k/uL RBC 3.11 L (4.30-5.90) m/uL Hgb 7.8 L (13.0-17.5) gm/dL Hct 24.6 L (39.0-53.0) % MCV 79.0 L (80.0-100.0) fL RDW 16.2 H (11.5-15.5) % Neutrophils # 8.5 H (1.3-7.7) k/uL POC Glucose (mg/dL) 216 H 164 H (75-99) mg/dL 12/18/20 12/18/20 Range/Units 11:34 16:53 WBC (3.8-10.6) k/uL RBC (4.30-5.90) m/uL Hgb (13.0-17.5) gm/dL Hct (39.0-53.0) % MCV (80.0-100.0) fL RDW (11.5-15.5) % Neutrophils # (1.3-7.7) k/uL POC Glucose (mg/dL) 167 H 224 H (75-99) mg/dL Assessment and Plan Assessment: sepsis involving bilateral foot infection and cellulitis Atypical pneumonia off of doxycycline Chronic kidney disease Uncontrolled diabetes and neuropathy along with vasculopathy hypertension hypertensive cardiovascular disease Dyslipidemia Morbid obesity and likely obstructive sleep apnea Plan: continue deep breathing exercise incentive spirometry Follow clinical course closely with antibiotics Observe off of doxycycline Patient will need a sleep study as outpatient Further recommendations pending plan of care as per clinical response of patient Time with Patient: Greater than 30
[2020-12-18 20:59] LABS: Glucose,Whole Blood 230 mg/dL (75-99)
--- NOTE | 2020-12-18 21:49 | P.PN ---
Progress Note - Text Progress Note Date: 12/18/20 Patient seen and examined. He states pain in his feet have improved. He is still having swelling to the lower extremities. He states he is supposed to be leaving early next week. He denies any fevers, chills, nausea, chest pain or shortness of breath. VSS- afebrile NAD, alert and oriented x 3 PERRL, EOMI Clear, no retractions RRR Bilateral large foot wounds with fibrinous tissue, no purulence. Tendon and ligaments are exposed on the left plantar surface wound. A/P: 1. Bilateral lower extremtiy non healing foot wounds 2. Lower extremity venous insufficiency 3. PVD 4. Pneumonia - continue local wound care. We will schedule for another formal debridement and skin substitute placement either Saturday or Saturday. If patient has a bed and is being discharged prior to Saturday then we will see him as outpatient.
--- NOTE | 2020-12-18 23:14 | PN ---
PROGRESS NOTE DATE OF SERVICE: 12/18/2020. REASON FOR FOLLOWUP: Bilateral diabetic foot ulcer and cellulitis. INTERVAL HISTORY: The patient is currently afebrile. The patient is breathing comfortably. The patient denies having any chest pain. No shortness of breath, cough, abdominal pain. Denies any further black or tarry stool. No vomiting. EXAMINATION: His vital signs stable. T-max 98. General description is a middle-aged male lying in bed in no distress. Respiratory system: Unlabored breathing, clear to auscultation anteriorly. Heart: S1, S2. Regular rate and rhythm. Abdomen soft, no tenderness. Bilateral foot wounds are currently dressed up. No obvious drainage on the dressing. LABS: Hemoglobin is 10.8, white count of 10, wound culture with multiple pathogens. DIAGNOSTIC IMPRESSION AND PLAN: Patient with bilateral diabetic foot ulcers secondary cellulitis. Culture positive for multiple pathogens. Patient seemed to be clinically responding to the Unasyn and will continue on for 2-3 days with no clear response. Local wound care is ordered and monitor clinical course closely. MMODL / IJN: [id number] /
--- NOTE | 2020-12-18 23:44 | PN ---
PROGRESS NOTE 65-year-old white male he was examined. He has pain on his feet, it is improved. He is still having swelling in his lower extremities, was going to be sent home, but he still had a little bit of blood in his stools this morning. We are going to check his hemoglobin in the morning prior to discharge. No fever or chills. Psych: Fair mood and affect. Lungs are clear. Cardiac: Regular rate and rhythm. Extremities shows bilateral large foot wounds with fibrinous tissue. No purulence. Tendon in the ligaments exposed, the left plantar surface wounds. ASSESSMENT: 1. Community-acquired pneumonia. 2. Bilateral lower extremity nonhealing foot wounds. 3. Infected diabetic wounds. 4. Venous insufficiency. 5. Peripheral vascular disease. Continue local wound care. They are going to do another formal debridement, skin substitute placement Saturday, Saturday. They may see him as an outpatient if we send him home tomorrow. BELEN / SUZIE: [id number] /
[2020-12-19] MEDS: AMPICILLIN-SULBACTAM 3 GM in SODIUM CHLORIDE 0.9% 100 ML IVPB SCH ×5 (00:23→22:57)
[2020-12-19 06:33] LABS: Glucose,Whole Blood 259 mg/dL (75-99)
[2020-12-19] MEDS: INSULIN ASPART (NovoLOG) 100 UNIT/ML VIAL SQ SCH ×4 (06:38→21:08)
[2020-12-19] MEDS: LEVOTHYROXINE 100 MCG TAB PO SCH (06:38)
[2020-12-19] MEDS: LEVOTHYROXINE 50 MCG TAB PO SCH (06:38)
[2020-12-19 08:05] LABS: Anisocytosis Slight; Basophils % (A) 0 %; Eosinophils # (A) 0.1 k/uL (0-0.7); Eosinophils % (A) 1 %; HCT 24.1 % (39.0-53.0); HGB 7.8 gm/dL (13.0-17.5); Hypochromasia Slight; Lymphocytes % (A) 10 %; MCH 25.4 pg (25.0-35.0); MCHC 32.4 g/dL (31.0-37.0); MCV 78.4 fL (80.0-100.0); Mean Platelet Volume 7.9; Microcytosis Slight; Monocytes # (A) 0.6 k/uL (0-1.0); Monocytes % (A) 6 %; Neutrophils # (A) 8.2 k/uL (1.3-7.7); Neutrophils % (A) 82 %; Platelet Count 363 k/uL (150-450); RBC 3.07 m/uL (4.30-5.90); RDW 16.2 % (11.5-15.5)
[2020-12-19 08:06] LABS: Albumin 2.1 g/dL (3.5-5.0); Potassium 4.1 mmol/L (3.5-5.1); Total Bilirubin 0.4 mg/dL (0.2-1.3); Total Protein 5.4 g/dL (6.3-8.2)
[2020-12-19] MEDS: METOPROLOL TARTRATE 25 MG TAB PO SCH (09:36)
[2020-12-19] MEDS: HYDROCORTISONE SUPPOSITORY 25 MG SUPP RECTAL SCH ×2 (09:37→21:08)
[2020-12-19] MEDS: ASPIRIN 81 MG PO SCH (09:37)
[2020-12-19] MEDS: LOSARTAN 50 MG TAB PO SCH (09:37)
[2020-12-19] MEDS: ATORVASTATIN 40 MG TAB PO SCH (09:37)
[2020-12-19] MEDS: FUROSEMIDE 20 MG TAB PO SCH (09:37)
[2020-12-19] MEDS: FENOFIBRATE 160 MG TAB PO SCH (09:37)
[2020-12-19] MEDS: SODIUM CHLORIDE 0.9% 1,000 ML IV SCH ×3 (09:38→19:49)
[2020-12-19 09:49] LABS: Erythrocyte Sedimentation Rate 108 mm/hr (0-15)
--- NOTE | 2020-12-19 11:32 | P.PN ---
Subjective Progress Note Date: 12/19/20 Principal diagnosis: sepsis involving bilateral foot infection and cellulitis Atypical pneumonia Chronic kidney disease Uncontrolled diabetes and neuropathy along with vasculopathy hypertension hypertensive cardiovascular disease Dyslipidemia Morbid obesity and likely obstructive sleep apnea 12/19/2020, patient has been doing well denies any chest pain, vitals remains stable, remains on room air denies any chest 12/18/2020, patient seen eval reexamined during the rounds labs reviewed medications reviewed patient remains on room air breathing comfortably denies any chest pain denies any cough or sputum production, patient had just a new dressing in the feet and lower extremity 12/17/2020, patient seen eval examined during the rounds labs reviewed medications reviewed care plan discussed, respiratory status remains stable off of oxygen breathing comfortably denies any cough or sputum production 12/16/2020, patient seen eval examined during the rounds labs reviewed medications reviewed care plan discussed, respiratory status remains stable denies any chest pain breathing comfortably, hemoglobin stable white cell count is coming down, stable renal functions 12/15/2020, patient seen eval examined during the rounds status was debridement of the wound from the foot, respiratory status remained stable breathing comfortably denies any chest pain, remains afebrile with temperature 90.8, hemodynamically stable blood pressure 124/68, on room air oxygen saturation 96%, patient off of doxycycline on Unasyn for 4 foot infection now 12/14/2020, patient seen eval examined remains afebrile saturation is stable denies any cough or sputum production denies any chest pain, labs today for reviewed hemoglobin stable 7.7 white cell count is trending downwards 16.4, renal functions have been a stable 27/1.39 12/13/2020, patient seen eval examined respiratory status remains stable patient's wound care by vascular surgery,denies any chest pain cough or sputum production, remains on broad-spectrum antibiotics oxygen saturation 98% percent on room air 12/12/2020, patient seen eval examined during the rounds labs reviewed medications reviewed care plan discussed, respiratory status the remains stable patient sitting upright on the bed breathing comfortably, patient is scheduled for PICC line later on today also supposed to get wound debridement as well, denies any cough or sputum production, 12/09/2020, patient seen eval reexamined labs reviewed medications reviewed care plan discussed, on room air oxygen saturation 100%, patient remains afebrile and hemodynamically stable with slightly low blood pressure, this is a 65-year-old morbidly obese male with the prior medical history of type 2 diabetes mellitus with his complication and sequelae including peripheral arterial disease neuropathy and chronic leg wounds patient also has chronic renal failure, patient presented into the hospital with the increased blood sugar, also has a problem of shortness of breath had fever of 101, denies any cough or sputum production denies any chest pain, Dr. Ross from vascular surgery has been following him for lower extremity woundshim a patient used to smoke but quit several years ago he used to smoke 2 packs per day quit about 10- 14 years, his prior history also significant for bypass surgery and stent placement, his covid 19 testing is negative, white cell count is 21,900, hemoglobin is 8.4, BUN/creatinine 53 and 1.9,left foot x-ray noted to have Charcot-type arthropathy with soft tissue swelling, chest x-ray prominent interstitium/infiltrate,subtle pneumonia cannot be excludedThomas patient is on Vanco along with cephapirin wound care on consult Objective - Vital Signs Vital signs: Vital Signs Temp 98.8 F 12/19/20 04:11 Pulse 71 12/19/20 04:11 Resp 16 12/19/20 04:11 BP 138/66 12/19/20 04:11 Pulse Ox 91 L 12/19/20 04:11 Intake & Output 12/18/20 12/19/20 12/19/20 18:59 06:59 18:59 Intake Total 580 240 Output Total 427 Balance 580 -427 240 Weight 94.3 kg Intake: Oral 580 240 Output: Urine 425 Stool 2 Other: Voiding Method Urinal # Bowel Movements 1 - Exam - Constitutional General appearance: disheveled, morbidly obese - EENT Eyes: PERRLA Ears: bilateral: normal - Neck Neck: normal ROM Carotids: bilateral: upstroke normal - Respiratory Respiratory: bilateral: diminished - Cardiovascular Rhythm: regular Heart sounds: normal: S1, S2 - Gastrointestinal General gastrointestinal: normal bowel sounds - Integumentary bilateral foot infection with left foot more than the right side - Neurologic Neurologic: CNII-XII intact - Musculoskeletal Musculoskeletal: gait normal, generalized weakness, strength equal bilaterally - Psychiatric Psychiatric: A&O x's 3, appropriate affect, intact judgment & insight - Labs CBC & Chem 7: 12/19/20 07:26 12/19/20 07:26 Labs: Abnormal Lab Results - Last 24 Hours (Table) 12/18/20 12/18/20 12/18/20 Range/Units 11:34 16:53 20:57 RBC (4.30-5.90) m/uL Hgb (13.0-17.5) gm/dL Hct (39.0-53.0) % MCV (80.0-100.0) fL RDW (11.5-15.5) % Neutrophils # (1.3-7.7) k/uL ESR (0-15) mm/hr Sodium (137-145) mmol/L Carbon Dioxide (22-30) mmol/L BUN (9-20) mg/dL Glucose (74-99) mg/dL POC Glucose (mg/dL) 167 H 224 H 230 H (75-99) mg/dL Calcium (8.4-10.2) mg/dL Alkaline Phosphatase (38-126) U/L C-Reactive Protein (<10.0) mg/L Total Protein (6.3-8.2) g/dL Albumin (3.5-5.0) g/dL 12/19/20 12/19/20 12/19/20 Range/Units 06:31 07:26 07:26 RBC 3.07 L (4.30-5.90) m/uL Hgb 7.8 L (13.0-17.5) gm/dL Hct 24.1 L (39.0-53.0) % MCV 78.4 L (80.0-100.0) fL RDW 16.2 H (11.5-15.5) % Neutrophils # 8.2 H (1.3-7.7) k/uL ESR 108 H (0-15) mm/hr Sodium 136 L (137-145) mmol/L Carbon Dioxide 33 H (22-30) mmol/L BUN 34 H (9-20) mg/dL Glucose 248 H (74-99) mg/dL POC Glucose (mg/dL) 259 H (75-99) mg/dL Calcium 8.0 L (8.4-10.2) mg/dL Alkaline Phosphatase 204 H (38-126) U/L C-Reactive Protein 64.0 H (<10.0) mg/L Total Protein 5.4 L (6.3-8.2) g/dL Albumin 2.1 L (3.5-5.0) g/dL Assessment and Plan Assessment: sepsis involving bilateral foot infection and cellulitis Atypical pneumonia off of doxycycline Chronic kidney disease Uncontrolled diabetes and neuropathy along with vasculopathy hypertension hypertensive cardiovascular disease Dyslipidemia Morbid obesity and likely obstructive sleep apnea Plan: continue deep breathing exercise incentive spirometry Follow clinical course closely with antibiotics Observe off of doxycycline Patient will need a sleep study as outpatient Further recommendations pending plan of care as per clinical response of patient Time with Patient: Greater than 30
[2020-12-19 11:56] LABS: Glucose,Whole Blood 291 mg/dL (75-99)
--- NOTE | 2020-12-19 12:59 | CDI ---
Documentation Clarification Form 2nd Request Date: 12/15/2020 12:28:14 PM From: Sophia Sommer RN, CCDS Admit Date: 12/06/2020 09:30:00 AM Patient Name: Cruz Sorenson V Visit Number: [id number] ATTENTION: The Clinical Documentation Specialists (CDI) and [facility] Coding Staff appreciate your assistance in clarifying documentation. Please respond to the clarification below the line at the bottom and electronically sign. The CDI & [facility] Coding staff will review the response and follow-up if needed. Please note: Queries are made part of the Legal Health Record. If you have any questions, please contact the author of this message via ITS. Dr. Johny Granado Osteomyelitis has been documented in the 12/11 & 12/12 Attending progress notes in a patient with documented uncontrolled DM2, and requires further clarification. History/Risk Factors: uncontrolled DM2 with elevated blood sugar, CKD stage 3, bilateral lower extremity cellulitis, neuropathy, Ischemic cardiomyopathy w/ AICD, intermittent claudication, PTCA, PAD, Ex-smoker, Charcot arthropathy Clinical Indicators: 12/06 ID Consult: " Patient admitted to the hospital with a fever, elevated white count, sepsis, source is likely left lower extremity wound with secondary cellulitis. Underlying diabetes." 12/11 Attending Progress note: "Osteomyelitis" 12/12 Attending Progress Note: "Remains on broad-spectrum antibiotics for severe cellulitis and osteomyelitis of the legs." 12/06 left Foot XR: "No suspicious bony destruction or abnormal periosteal reaction to suggest acute osteomyelitis. Significant arterial vascular calcification." 12/14 Arterial Doppler: Impression: Suggests mild to moderate left fem-pop disease with perfusion possibly adequate for healing. At least moderate right fem-pop disease. Tissue perfusion marginal." 12/06-12/15 Labs: WBC: 21.9/18.43/20.44/19.6/19.39/19.23/16.4 Neutrophils 19.7/15.19/16.81/16.2/15.4/15.21/13.5 CRP 328.9/11.4 12/08 Right foot wound cx: +Strep agalactiae Left foot Cx: + Anaerobic Gram + Cocci, Strep agalactiae, Staph aureus 12/16 Right foot Cx: + Anaerobic gram negative bacilli, Strep agalactiae, Enterococcus faecalis, Staph aureus Treatment: 12/14 Excisional Debridement Procedure Note: Sharp excisional debridement bilateral lower extremities Right ankle 7 x 3.5 x 0.2 cm to subcutaneous tissue Right foot 9 x 5 x 0.3 cm to bone Left ankle 2.3 x 1.7 x 0.2 cm to subcutaneous tissue Left foot 14 x 11 x 1 cm to bone] 12/06-12/09 Cefazolin 2gm IVPB q 12 hrs. 12/07-12/14 Vibramycin 100 mg Po BID 12/06 Zosyn 3.375mg IVPB Q 8 hrs. Vancomycin IVPB PTD Novolog SSI SQ and Levimir SQ insulin In your professional opinion, please specify the following: *Laterality and Location (if known, specify part of bone): Left Right Bilateral Upper Lower *Acuity: Acute Chronic Subacute Unable to Determine *Cause: Viral (specify organism if know): Bacterial (specify organism if know): Other (please specify): Unable to Determine *Associated condition (if applicable): Diabetic Major osseous defect (specify site) Other (please specify): (Last Revision: June 2017) MTDD
--- NOTE | 2020-12-19 13:00 | CDI ---
Documentation Clarification Form 2nd request Date: 12/15/2020 12:51:00 PM From: Sophia Sommer RN, CDS Admit Date: 12/06/2020 09:30:00 AM Patient Name: Cruz Sorenson V Visit Number: [id number] ATTENTION: The Clinical Documentation Specialists (CDI) and [facility] Coding Staff appreciate your assistance in clarifying documentation. Please respond to the clarification below the line at the bottom and electronically sign. The CDI & [facility] Coding staff will review the response and follow-up if needed. Please note: Queries are made part of the Legal Health Record. If you have any questions, please contact the author of this message via ITS. Dr. Johny Granado Cellulitis of the bilateral lower extremities in a patient with uncontrolled DM2 is documented in the H&P, Consults and progress notes and requires further specificity. Patient history/risk factors: Uncontrolled DM2 with elevated blood sugar, CKD stage 3, bilateral lower extremity cellulitis, neuropathy, Ischemic cardiomyopathy w/ AICD, intermittent claudication, PTCA, PAD, Ex-smoker, Charcot arthropathy Clinical Indicators: 12/06 ID Consult: " Patient admitted to the hospital with a fever, elevated white count, sepsis, source is likely left lower extremity wound with secondary cellulitis. Underlying diabetes." 12/07 Pulmonary Consult - 12/14 Pulmonary progress notes: "sepsis involving bilateral foot infection and cellulitis. Uncontrolled diabetes and neuropathy along with vasculopathy." 12/12 Attending Progress Note: "Remains on broad-spectrum antibiotics for severe cellulitis and osteomyelitis of the legs." 12/14 ID: "Patient with bilateral lower extremity wounds with secondary cellulitis, status post debridement." 12/06 Left Foot XR: "No suspicious bony destruction or abnormal periosteal reaction to suggest acute osteomyelitis. Significant arterial vascular calcification." 12/14 Arterial Doppler: Impression: Suggests mild to moderate left fem-pop disease with perfusion possibly adequate for healing. At least moderate right fem-pop disease. Tissue perfusion marginal." 12/06-12/15 Labs: WBC: 21.9/18.43/20.44/19.6/19.39/19.23/16.4 Neutrophils 19.7/15.19/16.81/16.2/15.4/15.21/13.5 CRP 328.9/11.4 12/08 Right foot wound cx: +Strep agalactiae Left foot Cx: + Anaerobic Gram + Cocci, Strep agalactiae, Staph aureus 12/16 Right foot Cx: + Anaerobic gram negative bacilli, Strep agalactiae, Enterococcus faecalis, Staph aureus 12/06 1734 V/S: temp 101.7, HR 88, RR 18, B/P 123/57, SPo2 95% RA Treatment: 12/14 Excisional Debridement Procedure Note: Sharp excisional debridement bilateral lower extremities Right ankle 7 x 3.5 x 0.2 cm to subcutaneous tissue Right foot 9 x 5 x 0.3 cm to bone Left ankle 2.3 x 1.7 x 0.2 cm to subcutaneous tissue Left foot 14 x 11 x 1 cm to bone] 12/06-12/09 Cefazolin 2gm IVPB q 12 hrs. 12/07-12/14 Vibramycin 100 mg Po BID 12/06 Zosyn 3.375mg IVPB Q 8 hrs. Vancomycin IVPB PTD Novolog SSI SQ and Levimir SQ insulin Consults: Vascular and ID In your professional opinion, can Cellulitis be further specified as one of the following? Bilateral Lower Extremity Cellulitis due to DM2 Bilateral Lower Extremity Cellulitis is not related to DM2 Please also specify Infectious agent: Bacteria Virus Other, please specify: Unable to determine (Last Revision: June 2017) MTDD
--- NOTE | 2020-12-19 13:02 | CDI ---
Documentation Clarification Form 2nd Request Date: 12/15/2020 01:24:37 PM From: Sophia Sommer RN, CCDS Admit Date: 12/06/2020 09:30:00 AM Patient Name: Cruz Sorenson V Visit Number: [id number] ATTENTION: The Clinical Documentation Specialists (CDI) and [facility] Coding Staff appreciate your assistance in clarifying documentation. Please respond to the clarification below the line at the bottom and electronically sign. The CDI & [facility] Coding staff will review the response and follow-up if needed. Please note: Queries are made part of the Legal Health Record. If you have any questions, please contact the author of this message via ITS. Dr. Johny Granado The patient has Uncontrolled diabetes, as indicated in 12/06 H&P, subsequent Consults and progress notes and requires further specificity. History/Risk Factors: Uncontrolled DM2 with elevated blood sugar, CKD stage 3, bilateral lower extremity cellulitis, neuropathy, Ischemic cardiomyopathy w/ AICD, intermittent claudication, PTCA, PAD, Ex-smoker, Charcot arthropathy Clinical Indicators: 12/06 ED Note: "65-year-old male with a past medical history of IDDM type II, neuropathy, bilateral leg wounds, PAD, chronic renal disease presents to the emergency room for a chief complaint of high blood sugar and fever." 12/06 H&P: "Uncontrolled diabetes mellitus. Elevated blood sugar secondary to sepsis." 12/07 Pulmonary Consult- 12/15 Pulmonary Progress notes: "Uncontrolled diabetes and neuropathy along with vasculopathy." 12/06 ID Consult: " Patient admitted to the hospital with a fever, elevated white count, sepsis, source is likely left lower extremity wound with secondary cellulitis. Underlying diabetes." 12/06-12/15 Labs: + Acetone on 12/06, Glucose 293/265/249/234/209/284/355/231/340 Treatment: 12/06 Sliding Scale Novolog 12/09-12/10 Levemir SQ HS 35 units 12/06 0.9%NS IVF bolus 500 cc followed by 75cc/hr. In order to capture the severity of Illness and necessary documentation specificity, please clarify: DM Type 2 with hyperglycemia DM due to underlying condition, specify (e.g. 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
--- NOTE | 2020-12-19 13:02 | P.PN ---
Subjective Progress Note Date: 12/19/20 Principal diagnosis: Anemia, melena Patient seen and examined lying in bed. He had a bowel movement today which his nurse reports as brown. He's been having several bowel movements daily, likely due to antibiotic therapy. Hemoglobin is stable at 7.8 with no further signs of GI bleed. Objective - Vital Signs Vital signs: Vital Signs Temp 98.8 F 12/19/20 04:11 Pulse 71 12/19/20 04:11 Resp 16 12/19/20 04:11 BP 138/66 12/19/20 04:11 Pulse Ox 91 L 12/19/20 04:11 Intake & Output 12/18/20 12/19/20 12/19/20 18:59 06:59 18:59 Intake Total 580 240 Output Total 427 Balance 580 -427 240 Weight 94.3 kg Intake: Oral 580 240 Output: Urine 425 Stool 2 Other: Voiding Method Urinal # Bowel Movements 1 - Exam General appearance: The patient is alert, oriented, appears in no acute distress. HET: Head is normocephalic and atraumatic. Conjunctiva pink. Sclera anicteric. Neck: Supple without lymphadenopathy. Abdomen: Soft, nontender, nondistended with bowel sounds. No guarding or rigidity. Extremities: Normal skin color and turgor. No pedal edema Skin: No rashes, no jaundice Neurological: No focal deficits. Alert and oriented 3. - Labs CBC & Chem 7: 12/19/20 07:26 12/19/20 07:26 Labs: Abnormal Lab Results - Last 24 Hours (Table) 12/18/20 12/18/20 12/18/20 Range/Units 11:34 16:53 20:57 RBC (4.30-5.90) m/uL Hgb (13.0-17.5) gm/dL Hct (39.0-53.0) % MCV (80.0-100.0) fL RDW (11.5-15.5) % Neutrophils # (1.3-7.7) k/uL ESR (0-15) mm/hr Sodium (137-145) mmol/L Carbon Dioxide (22-30) mmol/L BUN (9-20) mg/dL Glucose (74-99) mg/dL POC Glucose (mg/dL) 167 H 224 H 230 H (75-99) mg/dL Calcium (8.4-10.2) mg/dL Alkaline Phosphatase (38-126) U/L C-Reactive Protein (<10.0) mg/L Total Protein (6.3-8.2) g/dL Albumin (3.5-5.0) g/dL 12/19/20 12/19/20 12/19/20 Range/Units 06:31 07:26 07:26 RBC 3.07 L (4.30-5.90) m/uL Hgb 7.8 L (13.0-17.5) gm/dL Hct 24.1 L (39.0-53.0) % MCV 78.4 L (80.0-100.0) fL RDW 16.2 H (11.5-15.5) % Neutrophils # 8.2 H (1.3-7.7) k/uL ESR 108 H (0-15) mm/hr Sodium 136 L (137-145) mmol/L Carbon Dioxide 33 H (22-30) mmol/L BUN 34 H (9-20) mg/dL Glucose 248 H (74-99) mg/dL POC Glucose (mg/dL) 259 H (75-99) mg/dL Calcium 8.0 L (8.4-10.2) mg/dL Alkaline Phosphatase 204 H (38-126) U/L C-Reactive Protein 64.0 H (<10.0) mg/L Total Protein 5.4 L (6.3-8.2) g/dL Albumin 2.1 L (3.5-5.0) g/dL Assessment and Plan (1) Rectal bleeding Narrative/Plan: This is a 65-year-old pleasant male who has had intermittent rectal bleeding, likely from internal hemorrhoids. The patient had a colonoscopy by Dr. Schilling in May 2020 that showed small internal hemorrhoids and diverticulosis. Patient has had no further rectal bleeding. Had a normal bowel movement today. Globin is stable at 7.8 Current Visit: Yes Status: Acute Code(s): K62.5 - HEMORRHAGE OF ANUS AND RECTUM SNOMED Code(s): 13536001 (2) Diarrhea Narrative/Plan: Diarrhea secondary to antibiotics Current Visit: Yes Status: Acute Code(s): R19.7 - DIARRHEA, UNSPECIFIED SNOMED Code(s): 71520739 (3) Chronic anemia Current Visit: Yes Status: Acute Code(s): D64.9 - ANEMIA, UNSPECIFIED SNOMED Code(s): 281260332 Plan: 1. Supportive care 2. CBC daily 3. Monitor for signs and symptoms of GI bleed 4. Rectal suppositories twice daily for hemorrhoids 5. No plans for endoscopic evaluation Thank you for this consultation, we will sign off at this time. Dr. Romero I agree with the dictator's note, documented as a scribe by Cynthia Tello.
--- NOTE | 2020-12-19 13:12 | P.PN ---
Subjective Progress Note Date: 12/19/20 Principal diagnosis: Bilateral lower extremity wounds The patient is seen and examined lying in bed. He denies any pain in his feet. He's had no acute changes through the night. He is status post bilateral debridement of his feet. Objective - Vital Signs Vital signs: Vital Signs Temp 98.8 F 12/19/20 04:11 Pulse 71 12/19/20 04:11 Resp 16 12/19/20 04:11 BP 138/66 12/19/20 04:11 Pulse Ox 91 L 12/19/20 04:11 Intake & Output 12/18/20 12/19/20 12/19/20 18:59 06:59 18:59 Intake Total 580 240 Output Total 427 Balance 580 -427 240 Weight 94.3 kg Intake: Oral 580 240 Output: Urine 425 Stool 2 Other: Voiding Method Urinal # Bowel Movements 1 - Exam General appearance: The patient is alert, oriented, in no acute distress. HET: Head is normocephalic and atraumatic. Neck: Supple without lymphadenopathy. Trachea midline. Extremities: Normal skin color and turgor. Bilateral lower extremity edema. Bilateral large polyp wounds with fibrinous tissue, no purulence. Tendon and ligaments are exposed on the left plantar surface wound. Neurological: No focal deficits. Strength and sensation are grossly intact. - Labs CBC & Chem 7: 12/19/20 07:26 12/19/20 07:26 Labs: Abnormal Lab Results - Last 24 Hours (Table) 12/18/20 12/18/20 12/18/20 Range/Units 11:34 16:53 20:57 RBC (4.30-5.90) m/uL Hgb (13.0-17.5) gm/dL Hct (39.0-53.0) % MCV (80.0-100.0) fL RDW (11.5-15.5) % Neutrophils # (1.3-7.7) k/uL ESR (0-15) mm/hr Sodium (137-145) mmol/L Carbon Dioxide (22-30) mmol/L BUN (9-20) mg/dL Glucose (74-99) mg/dL POC Glucose (mg/dL) 167 H 224 H 230 H (75-99) mg/dL Calcium (8.4-10.2) mg/dL Alkaline Phosphatase (38-126) U/L C-Reactive Protein (<10.0) mg/L Total Protein (6.3-8.2) g/dL Albumin (3.5-5.0) g/dL 12/19/20 12/19/20 12/19/20 Range/Units 06:31 07:26 07:26 RBC 3.07 L (4.30-5.90) m/uL Hgb 7.8 L (13.0-17.5) gm/dL Hct 24.1 L (39.0-53.0) % MCV 78.4 L (80.0-100.0) fL RDW 16.2 H (11.5-15.5) % Neutrophils # 8.2 H (1.3-7.7) k/uL ESR 108 H (0-15) mm/hr Sodium 136 L (137-145) mmol/L Carbon Dioxide 33 H (22-30) mmol/L BUN 34 H (9-20) mg/dL Glucose 248 H (74-99) mg/dL POC Glucose (mg/dL) 259 H (75-99) mg/dL Calcium 8.0 L (8.4-10.2) mg/dL Alkaline Phosphatase 204 H (38-126) U/L C-Reactive Protein 64.0 H (<10.0) mg/L Total Protein 5.4 L (6.3-8.2) g/dL Albumin 2.1 L (3.5-5.0) g/dL Assessment and Plan Assessment: 1. Status post bilateral lower extremity wound debridement 2. Bilateral non-healing lower extremity wounds 3. Peripheral Vascular Disease 4. Diabetes mellitus 5. Neuropathy 6. Ischemic cardiomyopathy 7. History of intermittent claudication/peripheral arterial disease 8. Chronic anemia 9. Chronic kidney disease Plan: 1. Continue local wound care 2. Consult wound care for further local wound care and outpatient follow-up and debridement 3. Continue IV antibiotics per infectious disease Patient may be discharged home from a vascular surgical standpoint The impression and plan of care has been dictated as directed. I performed a history and examination of this patient, discussed the same with the dictator. I agree with the dictator's note ,documented as a scribe. Any additional findings or plans will be noted.
[2020-12-19 16:37] LABS: Glucose,Whole Blood 242 mg/dL (75-99)
[2020-12-19 20:03] LABS: Glucose,Whole Blood 259 mg/dL (75-99)
--- NOTE | 2020-12-20 00:48 | PN ---
PROGRESS NOTE DATE OF SERVICE: 12/19/2020. REASON FOR FOLLOWUP: Bilateral diabetic foot ulcers and cellulitis. INTERVAL HISTORY: Patient is currently afebrile. The patient is breathing comfortably. The patient denies having any chest pain. No shortness of breath or cough. No nausea, vomiting. No abdominal pain. No worsening pain to bilateral foot wound area. PHYSICAL EXAMINATION: Blood pressure 109/53, pulse of 69, temperature 98.7. She is 97% on room air. General description is a middle-aged male lying in bed in no distress. Respiratory system: Unlabored breathing. Clear to auscultation anteriorly. Heart S1, S2. Regular rate and rhythm. Abdomen: Soft, no tenderness. Left foot plantar wound minimal necrotic tissue though overall improvement. Right foot wound base no significant slough tissue or surrounding redness. LABS: Hemoglobin 7.1, white count 10.0. BUN of 24, creatinine 1.21. DIAGNOSTIC IMPRESSION AND PLAN: Patient with bilateral diabetic foot ulcer left greater than right, status post debridement. Culture has been positive for strep MSSA anaerobes. Patient is currently on Unasyn 3 g q.6h to continue. Local wound care per Surgery. Continue supportive care. MMODL / IJN: [id number] /
--- NOTE | 2020-12-20 01:29 | PN ---
PROGRESS NOTE This is a 65-year-old white male, hemoglobin stable, minimal rectal bleeding to be discharged home tomorrow. Cardiovascular S1-S2. Lungs clear. GI soft. Hematology negative Homans. Psych: Fair mood and affect. PLAN: Continue current treatment. Follow up in next 24 to 48 hours for possible discharge home tomorrow. MMODL / IJN: [id number] /
[2020-12-20 06:11] LABS: Glucose,Whole Blood 239 mg/dL (75-99)
[2020-12-20] MEDS: LEVOTHYROXINE 100 MCG TAB PO SCH (06:33)
[2020-12-20] MEDS: LEVOTHYROXINE 50 MCG TAB PO SCH (06:33)
[2020-12-20] MEDS: SODIUM CHLORIDE 0.9% 1,000 ML IV SCH (06:34)
[2020-12-20] MEDS: AMPICILLIN-SULBACTAM 3 GM in SODIUM CHLORIDE 0.9% 100 ML IVPB SCH (06:34)
[2020-12-20] MEDS: INSULIN ASPART (NovoLOG) 100 UNIT/ML VIAL SQ SCH ×2 (06:34→12:18)
[2020-12-20 08:01] VITALS: RESP 16
[2020-12-20 08:04] LABS: Calcium 7.8 mg/dL (8.4-10.2); Potassium 4.1 mmol/L (3.5-5.1); Total Bilirubin 0.3 mg/dL (0.2-1.3); Total Protein 5.2 g/dL (6.3-8.2)
[2020-12-20 08:25] LABS: Anisocytosis Slight; HCT 23.3 % (39.0-53.0); HGB 7.4 gm/dL (13.0-17.5); Hypochromasia Slight; MCH 25.1 pg (25.0-35.0); MCHC 31.9 g/dL (31.0-37.0); MCV 78.8 fL (80.0-100.0); Mean Platelet Volume 7.9; Platelet Count 330 k/uL (150-450); RBC 2.96 m/uL (4.30-5.90); RDW 16.6 % (11.5-15.5); WBC 8.7 k/uL (3.8-10.6)
[2020-12-20 09:19] LABS: Eosinophils # (M) 0.17 k/uL (0-0.7); Lymphocytes # (M) 1.48 k/uL (1.0-4.8); Monocytes # (M) 0.52 k/uL (0-1.0); Myelocytes # (M) 0.09 k/uL (0); Myelocytes % 1 %; Neutrophils # (M) 6.61 k/uL (1.3-7.7); Neutrophils % (M) 76 %; Nucleated Red Blood Cells 0 /100 WBC (0-0); Poikilocytosis (M) Present; Total Cells Counted 200
--- OUTSIDE RECORDS SUMMARY | 2020-12-20 11:07 | XMS REPORT | Referral Summary ---
:1955 Author Name Matilda Address [address] [place] [address] Care Team Providers Name Role Phone Pankaj Unavailable Unavailable Santiago Unavailable Unavailable Matilda Unavailable Unavailable Nevaeh Unavailable Unavailable Salazar Unavailable Unavailable Allergies, Adverse Reactions and Alerts Substance Reaction Reaction Severity Status No Known Allergies Unspecified Active Medications Medication Directions Start Date Status Keflex 500 mg capsule 1 capsule oral/TID 09/23/2020 active Santyl 250 unit/gram topical ointment topical, Apply daily 2020 active ointment after cleansing Santyl 250 unit/gram topical ointment topical, Apply daily 2020 active ointment after cleansing Problems Problem Onset Date Status L97.812 - Non-pressure chronic ulcer of other part of right lower 09/07/2020 active leg with fat layer exposed E11.621 - Type 2 diabetes mellitus with foot ulcer 09/07/2020 active E11.622 - Type 2 diabetes mellitus with other skin ulcer 09/07/2020 active I87.331 - Chronic venous hypertension (idiopathic) with ulce r and 09/07/2020 active inflammation of right lower extremity L97.512 - Non-pressure chronic ulcer of other part of right foot 09/07/2020 active with fat layer exposed L97.222 - Non-pressure chronic ulcer of left calf with fat l alexis 09/21/2020 active exposed Encounters Date Location 09/07/2020 12:00:00 AM [facility] Encounter Diagnosis: L97.812 - Non-pressure chronic ulcer of other part of right lower leg with fat layer exposed Encounter Diagnosis: E11.621 - Type 2 diabetes mellitus with foot ulcer Encounter Diagnosis: E11.622 - Type 2 diabetes mellitus with other skin ulcer Encounter Diagnosis: I87.331 - Chronic venous hypertension (idiopathic) with ulcer and inflammation of right lower extremity Encounter Diagnosis: L97.512 - Non-pressure chronic ulcer of other part of right foot with fat layer exposed Encounter Diagnosis: L97.222 - Non-pressure chronic ulcer of left calf with fat layer exposed Vital signs Vital Value Unit Height 66 [in_i] Weight Measured 202 [lb_av] BP Systolic 117 mm[Hg] BP Diastolic 62 mm[Hg] BMI (Body Mass Index) 32.6 Unspecified Weight Measured 91.82 kg Body Temperature 98.3 [degF] Body Temperature 36.83 Cassandra O2 % BldC Oximetry Unspecified Unspecified Heart Rate 99 /min Respiratory Rate 18 /min Inhaled O2 concentration Unspecified Unspecified Immunizations Name Date Status Immunization information has not been included or does not e xist. Procedures Procedure Date Status Procedure information has not been included or does not exis t. Social History Smoking Status: Former smoker. Notes: QUIT IN 2006 Goals Description Goal: Patient will not experience any in jury related to falls Goal: Patient will remain injury free re lated to falls Goal: Patient/caregiver will verbalize/d emonstrate measures taken to prevent injury and/or falls Goal: Necrotic/devitalized tissue will b e minimized in the wound bed Goal: Patient/caregiver will verbalize u nderstanding of reason and process for debridement of necrotic tissue Goal: Patient/caregiver will verbalize u nderstanding of the [facility] Goal: Patient will verbalize adequate pa in control and receive pain control interventions during procedures as neede d Goal: Patient/caregiver will verbalize a dequate pain control between visits Goal: Patient/caregiver will verbalize c omfort level met Goal: Patient will maintain optimal mert a control Goal: Verify adequate tissue perfusion p rior to therapeutic compression application Goal: Patient/caregiver will verbalize u nderstanding of skin care regimen Goal: Ulcer/skin breakdown will have a v olume reduction of 30% by week 4 Goal: Ulcer/skin breakdown will have a v olume reduction of 50% by week 8 Goal: Ulcer/skin breakdown will have a v olume reduction of 80% by week 12 Goal: Ulcer/skin breakdown will heal wit hin 14 weeks Health Concerns Description Problem: Abuse / Safety / Falls / Self C are Management Problem: Necrotic Tissue Problem: Orientation to the Wound Care P rogram Problem: Pain, Acute or Chronic Problem: Venous Leg Ulcer Problem: Wound/Skin Impairment Functional Status Description Date Cognitive Status: Alert and Oriented x 3 (Active) 09/07 Ambulatory Status - Cane (Active) 11/23/2020 Assessment and Plan Description Plan of Treatment: Patient referred to hospital for behavioral medicine care Plan of Treatment: Apply topical anesthe tic as ordered Plan of Treatment: Excisional debridemen t Plan of Treatment: Administer pain contr ol measures as ordered Plan of Treatment: Non-invasive vascular studies Plan of Treatment: Patient referred to hospital for behavioral medicine care Assessment: this is a 64-year-old pleasa nt gentleman being seen by the wound care center for nonhealing ulcerat ions to bilateral lower extremities anterior aspect. Patient has a past medical hist ory that includes diabetes mellitus last hemoglobin A1c was a while ago at 9.7, h yperlipidemia, myocardial infarction, osteoarthritis, hypothyroidism, bilatera l diabetic neuropathy, coronary artery bypass 1998, defibrillator. Patient is a forme r smoker stopped smoking in 2006 after his bypass surgery. Patient presents today with nonhealing ulcerations to bilateral lower extremities anterior aspect. Orly ent was pulling up his compression stockings causing trauma to the lower extremities. Patient has significant edema to bilateral lower extremities. Patient just has bee n putting a dressing over top of the ulcerations. His last arterial Doppler was a year and half ago which showed positive blood flow no clots.12/22/2019: Patient is tolerating dressings without any difficulties. Patient is scheduled for his Dopplers tomorrow. Patient has no complaints or concerns at this time.12/29: Patient's hemoglobin A1c 14.9, patient venous Dopplers were negative fo r DVT showed venous insufficiency, arterial Dopplers impression suspect atelectatic circulation status for healing. Suspected decreased pressure waveform at the left foot could be vasospastic phenomenon. Normal proximal flow.01/18/2020: Patient is loly erating dressings without any difficulties. Patient was scheduled to see diabetes ed ucation however they are not seeing patients at this time. Instructed patient the im portance of seeing them once they are reopened and seen patients. Patient sharron balized understanding. Patient has no complaint or concerns at this time2019: Patient is tolerating dressings without any difficulties. [facility]id are at the [facility].09/07/2020: this is a 65-year-old pleasant gentleman who is bein g seen in the wound care center with a nonhealing ulceration to the right anter ior lower extremity and the right foot fourth digit lateral aspect ulceration. Jessica t states that the ulcerations have been there for approximately 12 weeks. He has been utilizing absorptive silver and collagen. The latest he has been using his collage n with home care. Patient has been utilizing Jose wraps. He does have CircAid at home at the bedside. Patient has history of diabetes with his last hemoglobin A1c at 8.2. Arterial Dopplers were performed in December to pressure on the right 0.64 to p ressure on the left 0.33 ABIs unable to obtain.09/13/2020: patient is tolerating dressings.09/21/2020: No [id number]/30/2020: No [id number]/06 /2021: No complaints. Tolerating 3 layer wraps [id number]/13/2021: No complain ts. Tolerating wraps.10/19/2020: No complaints10/26/2020: No complaints. Loly erating bilateral wraps.11/02/2020: No complaints. Against advice, the patient again began utilizing the shoes that cause breakdown on the anterior ankle on the r ight.11/09/2020: No complaints. Patient continues to be noncompliant with avoida nce of shoes that defined on the anterior ankle crease.11/16/2020: No [id number] /24/2021: No complaints Results Name Specimen Value Unit Ref. Range Date Lab Order: Complete Blood Count w/diff 12/15/2019 WBC 6.3 k/uL 12/15/2019 RBC 4.3 m/uL 12/15/2019 HGB 12.5 gm/dL 12/15/2019 HCT 37.9 % 12/15/2019 MCV 88.2 fL 12/15/2019 MCH 29.1 pg 12/15/2019 MCHC 32.9 g/dL 12/15/2019 RDW 13.5 % 12/15/2019 Platelet Count 177 k/uL 12/15/2019 Neutrophils % (A) 67 % 12/15/19 Lymphocytes % (A) 19 % 12/15/19 Monocytes % (A) 7 % 12/15/2019 Eosinophils % (A) 5 % 12/15/19 Basophils % (A) 1 % 12/15/2019 Neutrophils # (A) 4.2 k/uL 12/15/19 Lymphocytes # (A) 1.2 k/uL 3/17/20 20 Monocytes # (A) 0.4 k/uL 12/15/2019 Eosinophils # (A) 0.3 k/uL 12/15/19 20 Basophils # (A) 0.1 k/uL 12/15/2019 Lab Order: Comprehensive Metabolic Panel 12/15/2019 Glucose 359 mg/dL 12/15/2019 Sodium 135 mmol/L 12/15/2019 Potassium 4.3 mmol/L 12/15/2019 Chloride 99 mmol/L 12/15/2019 Carbon Dioxide 30 mmol/L 12/15/2019 Anion Gap 6 mmol/L 12/15/2019 Blood Urea Nitrogen 24 mg/dL 2019 Creatinine 1.31 mg/dL 12/15/2019 Non- GFR(CKD) 58 12/15/2019 GFR (CKD) 67 12/15/2019 Calcium 8.9 mg/dL 12/15/2019 Total Protein 6.8 g/dL 12/15/2019 Albumin 3.8 g/dL 12/15/2019 Total Bilirubin 0.5 mg/dL 12/15/2019 AST 24 U/L 12/15/2019 ALT 14 U/L 12/15/2019 Alkaline Phosphatase 95 U/L 12/14 Lab Order: Prealbumin 11/28 Prealbumin 25 mg/dL 12/15/2019 Lab Order: Hemoglobin A1C 12/15/2019 Hemoglobin A1C 14.9 % 12/15/2019 Estimated Average Glucose 381 12/15/2019 Medical Equipment Implanted Area JEANCARLOS Assigning Author [email or web address] Medical Equipment information has not been included or does not exist. Reason for Referral transition of care
[2020-12-20 11:24] VITALS: BP 151/67; PULSE 70; TEMP 98
[2020-12-20] MEDS: ATORVASTATIN 40 MG TAB PO SCH (11:26)
[2020-12-20] MEDS: ASPIRIN 81 MG PO SCH (11:26)
[2020-12-20] MEDS: FUROSEMIDE 20 MG TAB PO SCH (11:27)
[2020-12-20] MEDS: FENOFIBRATE 160 MG TAB PO SCH (11:27)
[2020-12-20] MEDS: METOPROLOL TARTRATE 25 MG TAB PO SCH (11:28)
[2020-12-20] MEDS: LOSARTAN 50 MG TAB PO SCH (11:28)
[2020-12-20 11:44] LABS: Glucose,Whole Blood 174 mg/dL (75-99)
--- NOTE | 2020-12-20 12:11 | P.CONS ---
History of Present Illness - Reason for Consult Consult date: 12/20/20 wound care - History of Present Illness This is a 65-year-old woman known to the wound care center with nonhealing ulcerations to bilateral lower feet plantar aspect nonhealing ulceration to the right foot dorsal aspect and a nonhealing ulceration to the left foot dorsal aspect. Patient has undergone 2 surgical debridements over the last few days. They have been utilizing silver to the site. Patient is scheduled to have another debridement sometime this week either in the wound care center or outpatient. Patient will be scheduled with Dr. Lira tomorrow for wound care appointment. Right foot ulceration plantar aspect is nonhealing ulceration with muscle exposure without necrosis significant amount of slough eschar noted with granulation seen throughout. Nonhealing ulceration to right foot dorsal aspect with fat layer exposure significant granulation seen throughout wound bed and minimal slough. Left foot plantar aspect ulceration is a nonhealing nonpressure ulceration with muscle involvement, significant amount of eschar noted with minimal granulation, left foot dorsal aspect ulceration with fatty layer exposure minimal slough noted with granulation syndrome wound bed. Review Of Systems: Constitutional: No fever, no chills, no night sweats. No weight change. No weakness, fatigue or lethargy. No daytime sleepiness. Integumentary:reports wounds, no lesions. No rash or pruritus. No unusual bruising. No change in hair or nails. Physical exam: General Appearance: Alert, cooperative, no distress, appears stated age. Skin: See HPI all other Skin color, texture, tugor normal, no rashes or lesions. Neurologic: Alert oriented x3 Assessment: 1. Nonhealing ulceration right foot with muscle involvement without necrosis 2. Nonhealing ulceration right dorsal foot with fat layer exposure 3. Nonhealing ulceration left plantar foot with muscle involvement 4. Nonhealing ulceration left dorsal foot with fat layer exposure 5. Diabetic foot ulcer Plan: 1. Apply Santyl edge to edge and the nickel in depth, saline moistened gauze, dry gauze, rolled gauze secured paper tape change daily. Patient will be seen tomorrow 12/21/2020 at 945 in the wound care center with Dr. Lira. 2. Minimal weightbearing Thank you for the consultation any questions please contact the wound care ce nter DNP note has been reviewed and discussed with Dr. Lira and the impression and plan of care has been directed as dictated. Past Medical History Past Medical History: Diabetes Mellitus Additional Past Medical History / Comment(s): IDDM type II, neuropathy bilateral hands/forearms/lower legs/feet, RECENT ADMISSION FOR bilateral lower leg wounds/WCC pt, bilateral leg edema, CURRENTLY LEFT LEG IS CLEAR, RT LEG STILL HAS SOME CELLULITIS WITH A DRESSING ON IT, ischemic cardiomyopathy/AICD, vtach, past medical record documents paroxysmal Afib/pt does not recall this, bilateral lower leg intermittent claudiaction/PAD, chronic renal disease stage III, anemia, bilateral tinnitis/[place], hypothyroid, arthritis bilateral hands with R hand worse, Last Myocardial Infarction Date:: 2006 History of Any Multi-Drug Resistant Organisms: None Reported Past Surgical History: Coronary Bypass/CABG, Heart Catheterization, Heart Catheterization With Stent, Pacemaker Additional Past Surgical History / Comment(s): PCI with stent 1998, 2006 CABG 3 vessel and AICD, DFTs, aortagram with runoff, colonoscopy, bilateral cataract removals/lens implants. Past Anesthesia/Blood Transfusion Reactions: No Reported Reaction Date of Last Stent Placement:: 1998 Type of Cardiac Device: Permanent Pacemaker Device Placement Date:: 2006 Past Psychological History: No Psychological Hx Reported Additional Psychological History / Comment(s): Pt resides with his spouse. He uses a cane or walker to ambulate. He drives. Smoking Status: Former smoker Past Alcohol Use History: None Reported Additional Past Alcohol Use History / Comment(s): STARTED SMOKING AT AGE 17 QUIT 2006 SMOKED 1 1/2 PPD Past Drug Use History: None Reported - Past Family History Sister(s) Additional Family Medical History / Comment(s): Pt has a sister with COPD, another sister with diabetes/copd/htn and another sister with diabetes. Father Family Medical History: Myocardial Infarction (SD) Additional Family Medical History / Comment(s): Father of a SD at the age of 75 yrs. Brother(s) Family Medical History: Coronary Artery Disease (CAD), CVA/TIA, Diabetes Mellitus, Myocardial Infarction (SD) Additional Family Medical History / Comment(s): One brother had a SD at 38yrs and at age 48yrs. Another brother is alive and had a stroke. Mother Family Medical History: Diabetes Mellitus, Renal Disease Additional Family Medical History / Comment(s): Mother at age 62 from renal failure Medications and Allergies Home Medications Medication Instructions Recorded Confirmed Type Fenofibrate 160 mg PO DAILY 03/31/14 12/06/20 History Insulin Lispro [humaLOG Kwikpen] See Protocol SQ ACHS PRN 03/31/14 12/06/20 History Losartan Potassium 50 mg PO DAILY 03/31/14 12/06/20 History Atorvastatin [Lipitor] 40 mg PO DAILY 05/24/20 12/06/20 History Levothyroxine Sodium [Synthroid] 50 mcg PO DAILY 05/24/20 12/06/20 History Levothyroxine Sodium [Synthroid] 200 mcg PO DAILY 05/24/20 12/06/20 History Metoprolol Tartrate 75 mg PO DAILY 05/24/20 12/06/20 History Dulaglutide [Trulicity] 3 mg SQ HENRY 11/30/20 12/06/20 History Furosemide [Lasix] 20 mg PO DAILY 11/30/20 12/06/20 History Insulin Glargine,Hum.rec.anlog 35 units SQ DAILY 11/30/20 12/06/20 History [Toujeo Solostar] Acetaminophen Tab [Tylenol] 1,000 mg PO Q6HR PRN 12/06/20 12/06/20 History Ampicillin-Sulbactam [Unasyn] 3 gm IVPB Q6HR vial 12/16/20 Rx Aspirin 81 mg PO DAILY 90 Days #90 chew 12/16/20 Rx Calcium Carbonate [Tums] 1,000 mg PO QID PRN 90 Days #90 12/16/20 Rx chew Allergies Allergy/AdvReac Type Severity Reaction Status Date / Time No Known Allergies Allergy Verified 12/06/20 08:56 Physical Exam Vitals: Vital Signs Temp Pulse Resp BP BP Pulse Ox 12/20/20 11:23 98.0 F 70 16 151/67 95 12/20/20 10:52 76 16 167/77 12/20/20 08:00 67 12/20/20 07:58 97.7 F 67 16 119/61 96 12/20/20 04:00 98.3 F 63 19 141/70 96 12/19/20 23:17 99.5 F 71 18 149/72 94 L 12/19/20 20:00 99.1 F 73 19 150/62 98 12/19/20 16:00 64 16 143/78 93 L 12/19/20 14:00 64 Intake and Output 12/19/20 12/20/20 12/20/20 22:59 06:59 14:59 Intake Total 880 480 Output Total 575 450 975 Balance 305 -450 -495 Intake: Oral 880 480 Output: Urine 575 450 975 Other: # Voids 1 # Bowel Movements 1 Weight 93.5 kg Results CBC & Chem 7: 12/20/20 07:03 12/20/20 07:03 Labs: Abnormal Lab Results - Last 24 Hours (Table) 12/19/20 12/19/20 12/19/20 Range/Units 16:34 20:02 23:06 RBC (4.30-5.90) m/uL Hgb (13.0-17.5) gm/dL Hct (39.0-53.0) % MCV (80.0-100.0) fL RDW (11.5-15.5) % Myelocytes # (Manual) (0) k/uL Carbon Dioxide (22-30) mmol/L BUN (9-20) mg/dL Creatinine (0.66-1.25) mg/dL Glucose (74-99) mg/dL POC Glucose (mg/dL) 242 H 259 H (75-99) mg/dL Calcium (8.4-10.2) mg/dL Alkaline Phosphatase (38-126) U/L C-Reactive Protein 62.7 H (<10.0) mg/L Total Protein (6.3-8.2) g/dL Albumin (3.5-5.0) g/dL 12/20/20 12/20/20 12/20/20 Range/Units 06:09 07:03 07:03 RBC 2.96 L (4.30-5.90) m/uL Hgb 7.4 L (13.0-17.5) gm/dL Hct 23.3 L (39.0-53.0) % MCV 78.8 L (80.0-100.0) fL RDW 16.6 H (11.5-15.5) % Myelocytes # (Manual) 0.09 H (0) k/uL Carbon Dioxide 34 H (22-30) mmol/L BUN 35 H (9-20) mg/dL Creatinine 1.28 H (0.66-1.25) mg/dL Glucose 176 H (74-99) mg/dL POC Glucose (mg/dL) 239 H (75-99) mg/dL Calcium 7.8 L (8.4-10.2) mg/dL Alkaline Phosphatase 153 H (38-126) U/L C-Reactive Protein (<10.0) mg/L Total Protein 5.2 L (6.3-8.2) g/dL Albumin 2.0 L (3.5-5.0) g/dL 12/20/20 Range/Units 11:43 RBC (4.30-5.90) m/uL Hgb (13.0-17.5) gm/dL Hct (39.0-53.0) % MCV (80.0-100.0) fL RDW (11.5-15.5) % Myelocytes # (Manual) (0) k/uL Carbon Dioxide (22-30) mmol/L BUN (9-20) mg/dL Creatinine (0.66-1.25) mg/dL Glucose (74-99) mg/dL POC Glucose (mg/dL) 174 H (75-99) mg/dL Calcium (8.4-10.2) mg/dL Alkaline Phosphatase (38-126) U/L C-Reactive Protein (<10.0) mg/L Total Protein (6.3-8.2) g/dL Albumin (3.5-5.0) g/dL Microbiology - Last 24 Hours (Table) 12/17/20 00:11 Stool Culture - Final Stool Assessment and Plan (1) Non-healing ulcer of right foot with fat layer exposed Current Visit: Yes Status: Acute Code(s): L97.512 - NON-PRS CHRONIC ULCER OTH PRT RIGHT FOOT W FAT LAYER EXPOSED SNOMED Code(s): 427582537 (2) Non-healing ulcer of right foot with necrosis of muscle Current Visit: Yes Status: Acute Code(s): L97.513 - NON-PRS CHRONIC ULCER OTH PRT RIGHT FOOT W NECROS MUSCLE SNOMED Code(s): 522136806 (3) Non-healing ulcer of left foot with fat layer exposed Current Visit: Yes Status: Acute Code(s): L97.522 - NON-PRS CHRONIC ULCER OTH PRT LEFT FOOT W FAT LAYER EXPOSED SNOMED Code(s): 243111946 (4) Non-healing ulcer of left foot with necrosis of muscle Current Visit: Yes Status: Acute Code(s): L97.523 - NON-PRS CHRONIC ULCER OTH PRT LEFT FOOT W NECROSIS OF MUSCLE SNOMED Code(s): 916134933 (5) Diabetic foot ulcer Current Visit: Yes Status: Acute Code(s): E11.621 - TYPE 2 DIABETES MELLITUS WITH FOOT ULCER; L97.509 - NON-PRESSURE CHRONIC ULCER OTH PRT UNSP FOOT W UNSP SEVERITY SNOMED Code(s): 625213850
[2020-12-20] MEDS ORDERED: COLLAGENASE 250 UNIT/GM OINTMENT 30 GM TUBE TOPICAL SCH (12:15)
[2020-12-20] MEDS ORDERED: ERTAPENEM 1 GM in SODIUM CHLORIDE 0.9% 50 ML IVPB SCH (13:00)
--- NOTE | 2020-12-20 14:04 | CDI ---
Documentation Clarification form 3rd request Date: 12/15/2020 12:28:14 PM From: Sophia Sommer RN, CCDS Admit Date: 12/06/2020 09:30:00 AM Patient Name: Cruz Sorenson V Visit Number: [id number] ATTENTION: The Clinical Documentation Specialists (CDI) and [facility] Coding Staff appreciate your assistance in clarifying documentation. Please respond to the clarification below the line at the bottom and electronically sign. The CDI & [facility] Coding staff will review the response and follow-up if needed. Please note: Queries are made part of the Legal Health Record. If you have any questions, please contact the author of this message via ITS. Dr. Johny Granado Osteomyelitis has been documented in the 12/11 & 12/12 Attending progress notes in a patient with documented uncontrolled DM2, and requires further clarification. History/Risk Factors: uncontrolled DM2 with elevated blood sugar, CKD stage 3, bilateral lower extremity cellulitis, neuropathy, Ischemic cardiomyopathy w/ AICD, intermittent claudication, PTCA, PAD, Ex-smoker, Charcot arthropathy Clinical Indicators: 12/06 ID Consult: " Patient admitted to the hospital with a fever, elevated white count, sepsis, source is likely left lower extremity wound with secondary cellulitis. Underlying diabetes." 12/11 Attending Progress note: "Osteomyelitis" 12/12 Attending Progress Note: "Remains on broad-spectrum antibiotics for severe cellulitis and osteomyelitis of the legs." 12/06 left Foot XR: "No suspicious bony destruction or abnormal periosteal reaction to suggest acute osteomyelitis. Significant arterial vascular calcification." 12/14 Arterial Doppler: Impression: Suggests mild to moderate left fem-pop disease with perfusion possibly adequate for healing. At least moderate right fem-pop disease. Tissue perfusion marginal." 12/06-12/15 Labs: WBC: 21.9/18.43/20.44/19.6/19.39/19.23/16.4 Neutrophils 19.7/15.19/16.81/16.2/15.4/15.21/13.5 CRP 328.9/11.4 12/08 Right foot wound cx: +Strep agalactiae Left foot Cx: + Anaerobic Gram + Cocci, Strep agalactiae, Staph aureus 12/16 Right foot Cx: + Anaerobic gram negative bacilli, Strep agalactiae, Enterococcus faecalis, Staph aureus Treatment: 12/14 Excisional Debridement Procedure Note: Sharp excisional debridement bilateral lower extremities Right ankle 7 x 3.5 x 0.2 cm to subcutaneous tissue Right foot 9 x 5 x 0.3 cm to bone Left ankle 2.3 x 1.7 x 0.2 cm to subcutaneous tissue Left foot 14 x 11 x 1 cm to bone] 12/06-12/09 Cefazolin 2gm IVPB q 12 hrs. 12/07-12/14 Vibramycin 100 mg Po BID 12/06 Zosyn 3.375mg IVPB Q 8 hrs. Vancomycin IVPB PTD Novolog SSI SQ and Levimir SQ insulin In your professional opinion, please specify the following: *Laterality and Location (if known, specify part of bone): Left Right Bilateral Upper Lower *Acuity: Acute Chronic Subacute Unable to Determine *Cause: Viral (specify organism if know): Bacterial (specify organism if know): Other (please specify): Unable to Determine *Associated condition (if applicable): Diabetic Major osseous defect (specify site) Other (please specify): (Last Revision: June 2017) MTDD
--- NOTE | 2020-12-20 14:08 | CDI ---
Documentation Clarification Form 3rd request Date: 12/15/2020 12:51:06 PM From: Sophia Sommer RN, CCDS Admit Date: 12/06/2020 09:30:00 AM Patient Name: Cruz Sorenson V Visit Number: [id number] ATTENTION: The Clinical Documentation Specialists (CDI) and [facility] Coding Staff appreciate your assistance in clarifying documentation. Please respond to the clarification below the line at the bottom and electronically sign. The CDI & [facility] Coding staff will review the response and follow-up if needed. Please note: Queries are made part of the Legal Health Record. If you have any questions, please contact the author of this message via ITS. Dr. Johny Granado Cellulitis of the bilateral lower extremities in a patient with uncontrolled DM2 is documented in the H&P, Consults and progress notes and requires further specificity. Patient history/risk factors: Uncontrolled DM2 with elevated blood sugar, CKD stage 3, bilateral lower extremity cellulitis, neuropathy, Ischemic cardiomyopathy w/ AICD, intermittent claudication, PTCA, PAD, Ex-smoker, Charcot arthropathy Clinical Indicators: 12/06 ID Consult: " Patient admitted to the hospital with a fever, elevated white count, sepsis, source is likely left lower extremity wound with secondary cellulitis. Underlying diabetes." 12/07 Pulmonary Consult - 12/14 Pulmonary progress notes: "sepsis involving bilateral foot infection and cellulitis. Uncontrolled diabetes and neuropathy along with vasculopathy." 12/12 Attending Progress Note: "Remains on broad-spectrum antibiotics for severe cellulitis and osteomyelitis of the legs." 12/14 ID: "Patient with bilateral lower extremity wounds with secondary cellulitis, status post debridement." 12/06 Left Foot XR: "No suspicious bony destruction or abnormal periosteal reaction to suggest acute osteomyelitis. Significant arterial vascular calcification." 12/14 Arterial Doppler: Impression: Suggests mild to moderate left fem-pop disease with perfusion possibly adequate for healing. At least moderate right fem-pop disease. Tissue perfusion marginal." 12/06-12/15 Labs: WBC: 21.9/18.43/20.44/19.6/19.39/19.23/16.4 Neutrophils 19.7/15.19/16.81/16.2/15.4/15.21/13.5 CRP 328.9/11.4 12/08 Right foot wound cx: +Strep agalactiae Left foot Cx: + Anaerobic Gram + Cocci, Strep agalactiae, Staph aureus 12/16 Right foot Cx: + Anaerobic gram negative bacilli, Strep agalactiae, Enterococcus faecalis, Staph aureus 12/06 1734 V/S: temp 101.7, HR 88, RR 18, B/P 123/57, SPo2 95% RA Treatment: 12/14 Excisional Debridement Procedure Note: Sharp excisional debridement bilateral lower extremities Right ankle 7 x 3.5 x 0.2 cm to subcutaneous tissue Right foot 9 x 5 x 0.3 cm to bone Left ankle 2.3 x 1.7 x 0.2 cm to subcutaneous tissue Left foot 14 x 11 x 1 cm to bone] 12/06-12/09 Cefazolin 2gm IVPB q 12 hrs. 12/07-12/14 Vibramycin 100 mg Po BID 12/06 Zosyn 3.375mg IVPB Q 8 hrs. Vancomycin IVPB PTD Novolog SSI SQ and Levimir SQ insulin Consults: Vascular and ID In your professional opinion, can Cellulitis be further specified as one of the following? Bilateral Lower Extremity Cellulitis due to DM2 Bilateral Lower Extremity Cellulitis is not related to DM2 Please also specify Infectious agent: Bacteria Virus Other, please specify: Unable to determine (Last Revision: June 2017) MTDD
--- NOTE | 2020-12-20 14:10 | CDI ---
Documentation Clarification Form 3rd request Date: 12/15/2020 01:24:37 PM From: Sophia Sommer RN, CCDS Admit Date: 12/06/2020 09:30:00 AM Patient Name: Cruz Sorenson V Visit Number: [id number] ATTENTION: The Clinical Documentation Specialists (CDI) and [facility] Coding Staff appreciate your assistance in clarifying documentation. Please respond to the clarification below the line at the bottom and electronically sign. The CDI & [facility] Coding staff will review the response and follow-up if needed. Please note: Queries are made part of the Legal Health Record. If you have any questions, please contact the author of this message via ITS. Dr. Johny Granado The patient has Uncontrolled diabetes, as indicated in 12/06 H&P, subsequent Consults and progress notes and requires further specificity. History/Risk Factors: Uncontrolled DM2 with elevated blood sugar, CKD stage 3, bilateral lower extremity cellulitis, neuropathy, Ischemic cardiomyopathy w/ AICD, intermittent claudication, PTCA, PAD, Ex-smoker, Charcot arthropathy Clinical Indicators: 12/06 ED Note: "65-year-old male with a past medical history of IDDM type II, neuropathy, bilateral leg wounds, PAD, chronic renal disease presents to the emergency room for a chief complaint of high blood sugar and fever." 12/06 H&P: "Uncontrolled diabetes mellitus. Elevated blood sugar secondary to sepsis." 12/07 Pulmonary Consult- 12/15 Pulmonary Progress notes: "Uncontrolled diabetes and neuropathy along with vasculopathy." 12/06 ID Consult: " Patient admitted to the hospital with a fever, elevated white count, sepsis, source is likely left lower extremity wound with secondary cellulitis. Underlying diabetes." 12/06-12/15 Labs: + Acetone on 12/06, Glucose 293/265/249/234/209/284/355/231/340 Treatment: 12/06 Sliding Scale Novolog 12/09-12/10 Levemir SQ HS 35 units 12/06 0.9%NS IVF bolus 500 cc followed by 75cc/hr. In order to capture the severity of Illness and necessary documentation specificity, please clarify: DM Type 2 with hyperglycemia DM due to underlying condition, specify (e.g. 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
[2020-12-20] MEDS: HYDROCORTISONE SUPPOSITORY 25 MG SUPP RECTAL SCH (15:14)
--- NOTE | 2020-12-20 15:20 | P.PN ---
Subjective Progress Note Date: 12/20/20 Principal diagnosis: sepsis involving bilateral foot infection and cellulitis Atypical pneumonia Chronic kidney disease Uncontrolled diabetes and neuropathy along with vasculopathy hypertension hypertensive cardiovascular disease Dyslipidemia Morbid obesity and likely obstructive sleep apnea 12/20/2020, patient seen eval examined during the rounds, respiratory status remains stable, denies any chest pain 12/19/2020, patient has been doing well denies any chest pain, vitals remains stable, remains on room air denies any chest 12/18/2020, patient seen eval reexamined during the rounds labs reviewed medications reviewed patient remains on room air breathing comfortably denies any chest pain denies any cough or sputum production, patient had just a new dressing in the feet and lower extremity 12/17/2020, patient seen eval examined during the rounds labs reviewed medications reviewed care plan discussed, respiratory status remains stable off of oxygen breathing comfortably denies any cough or sputum production 12/16/2020, patient seen eval examined during the rounds labs reviewed medications reviewed care plan discussed, respiratory status remains stable de nies any chest pain breathing comfortably, hemoglobin stable white cell count is coming down, stable renal functions 12/15/2020, patient seen eval examined during the rounds status was debridement of the wound from the foot, respiratory status remained stable breathing comfortably denies any chest pain, remains afebrile with temperature 90.8, hemodynamically stable blood pressure 124/68, on room air oxygen saturation 96%, patient off of doxycycline on Unasyn for 4 foot infection now 12/14/2020, patient seen eval examined remains afebrile saturation is stable denies any cough or sputum production denies any chest pain, labs today for reviewed hemoglobin stable 7.7 white cell count is trending downwards 16.4, renal functions have been a stable 27/1.39 12/13/2020, patient seen eval examined respiratory status remains stable patient's wound care by vascular surgery,denies any chest pain cough or sputum production, remains on broad-spectrum antibiotics oxygen saturation 98% percent on room air 12/12/2020, patient seen eval examined during the rounds labs reviewed medications reviewed care plan discussed, respiratory status the remains stable patient sitting upright on the bed breathing comfortably, patient is scheduled for PICC line later on today also supposed to get wound debridement as well, denies any cough or sputum production, 12/09/2020, patient seen eval reexamined labs reviewed medications reviewed care plan discussed, on room air oxygen saturation 100%, patient remains afebrile and hemodynamically stable with slightly low blood pressure, this is a 65-year-old morbidly obese male with the prior medical history of type 2 diabetes mellitus with his complication and sequelae including peripheral arterial disease neuropathy and chronic leg wounds patient also has chronic renal failure, patient presented into the hospital with the increased blood sugar, also has a problem of shortness of breath had fever of 101, denies any cough or sputum production denies any chest pain, Dr. Ross from vascular surgery has been following him for lower extremity woundshim a patient used to smoke but quit several years ago he used to smoke 2 packs per day quit about 10-14 years, his prior history also significant for bypass surgery and stent placement, his covid 19 testing is negative, white cell count is 21,900, hemoglobin is 8.4, BUN/creatinine 53 and 1.9,left foot x-ray noted to have Charcot-type arthropathy with soft tissue swelling, chest x-ray prominent inter stitium/infiltrate,subtle pneumonia cannot be excludedThomas patient is on Vanco along with cephapirin wound care on consult Objective - Vital Signs Vital signs: Vital Signs Temp 98.0 F 12/20/20 11:23 Pulse 70 12/20/20 11:23 Resp 16 12/20/20 11:23 BP 151/67 12/20/20 11:23 Pulse Ox 95 12/20/20 11:23 Intake & Output 12/19/20 12/20/20 12/20/20 18:59 06:59 18:59 Intake Total 1360 720 Output Total 897 642 6562 Balance 710 -372 -668 Weight 93.5 kg Intake: Oral 1360 720 Output: Urine 395 791 5555 Other: # Voids 1 1 # Bowel Movements 1 1 2 - Exam - Constitutional General appearance: disheveled, morbidly obese - EENT Eyes: PERRLA Ears: bilateral: normal - Neck Neck: normal ROM Carotids: bilateral: upstroke normal - Respiratory Respiratory: bilateral: diminished - Cardiovascular Rhythm: regular Heart sounds: normal: S1, S2 - Gastrointestinal General gastrointestinal: normal bowel sounds - Integumentary bilateral foot infection with left foot more than the right side - Neurologic Neurologic: CNII-XII intact - Musculoskeletal Musculoskeletal: gait normal, generalized weakness, strength equal bilaterally - Psychiatric Psychiatric: A&O x's 3, appropriate affect, intact judgment & insight - Labs CBC & Chem 7: 12/20/20 07:03 12/20/20 07:03 Labs: Abnormal Lab Results - Last 24 Hours (Table) 12/19/20 12/19/20 12/19/20 Range/Units 16:34 20:02 23:06 RBC (4.30-5.90) m/uL Hgb (13.0-17.5) gm/dL Hct (39.0-53.0) % MCV (80.0-100.0) fL RDW (11.5-15.5) % Myelocytes # (Manual) (0) k/uL Carbon Dioxide (22-30) mmol/L BUN (9-20) mg/dL Creatinine (0.66-1.25) mg/dL Glucose (74-99) mg/dL POC Glucose (mg/dL) 242 H 259 H (75-99) mg/dL Calcium (8.4-10.2) mg/dL Alkaline Phosphatase (38-126) U/L C-Reactive Protein 62.7 H (<10.0) mg/L Total Protein (6.3-8.2) g/dL Albumin (3.5-5.0) g/dL 12/20/20 12/20/20 12/20/20 Range/Units 06:09 07:03 07:03 RBC 2.96 L (4.30-5.90) m/uL Hgb 7.4 L (13.0-17.5) gm/dL Hct 23.3 L (39.0-53.0) % MCV 78.8 L (80.0-100.0) fL RDW 16.6 H (11.5-15.5) % Myelocytes # (Manual) 0.09 H (0) k/uL Carbon Dioxide 34 H (22-30) mmol/L BUN 35 H (9-20) mg/dL Creatinine 1.28 H (0.66-1.25) mg/dL Glucose 176 H (74-99) mg/dL POC Glucose (mg/dL) 239 H (75-99) mg/dL Calcium 7.8 L (8.4-10.2) mg/dL Alkaline Phosphatase 153 H (38-126) U/L C-Reactive Protein (<10.0) mg/L Total Protein 5.2 L (6.3-8.2) g/dL Albumin 2.0 L (3.5-5.0) g/dL 12/20/20 Range/Units 11:43 RBC (4.30-5.90) m/uL Hgb (13.0-17.5) gm/dL Hct (39.0-53.0) % MCV (80.0-100.0) fL RDW (11.5-15.5) % Myelocytes # (Manual) (0) k/uL Carbon Dioxide (22-30) mmol/L BUN (9-20) mg/dL Creatinine (0.66-1.25) mg/dL Glucose (74-99) mg/dL POC Glucose (mg/dL) 174 H (75-99) mg/dL Calcium (8.4-10.2) mg/dL Alkaline Phosphatase (38-126) U/L C-Reactive Protein (<10.0) mg/L Total Protein (6.3-8.2) g/dL Albumin (3.5-5.0) g/dL Microbiology - Last 24 Hours (Table) 12/17/20 00:11 Stool Culture - Final Stool Assessment and Plan Assessment: sepsis involving bilateral foot infection and cellulitis Atypical pneumonia off of doxycycline Chronic kidney disease Uncontrolled diabetes and neuropathy along with vasculopathy hypertension hypertensive cardiovascular disease Dyslipidemia Morbid obesity and likely obstructive sleep apnea Plan: continue deep breathing exercise incentive spirometry Follow clinical course closely with antibiotics Observe off of doxycycline Patient will need a sleep study as outpatient Further recommendations pending plan of care as per clinical response of patient Time with Patient: Greater than 30
[2020-12-20 16:31] LABS: Glucose,Whole Blood 272 mg/dL (75-99)
--- NOTE | 2020-12-20 19:37 | PN ---
PROGRESS NOTE DATE OF SERVICE: 12/20/2020 REASON FOR FOLLOWUP: Bilateral diabetic foot ulcer and cellulitis. INTERVAL HISTORY: The patient is currently afebrile. The patient is breathing comfortably. He was seen on rounds this morning. Denies having any chest pain, shortness of breath or cough. No abdominal pain or worsening pain to the bilateral foot wound areas. PHYSICAL EXAMINATION: Blood pressure 151/67, pulse of 60, temperature 98. He is 95% on room air. General description is a middle-aged male lying in bed in no distress. RESPIRATORY SYSTEM: Unlabored breathing. Clear to auscultation anteriorly. HEART: S1, S2. Regular rate and rhythm. ABDOMEN: Soft. No tenderness. Bilateral feet are currently dressed up. No obvious drainage on the dressing. LABS: Hemoglobin is 7.4, white count 8.7, BUN of 35, creatinine 1.28. DIAGNOSTIC IMPRESSION AND PLAN: Patient with bilateral diabetic foot ulcers with secondary cellulitis, status post debridement. Culture with anaerobes and MSSA. We will give him a dose of Invanz 1 gram x1 so he can resume his IV Unasyn at home tomorrow. Local wound care per Surgery with close outpatient followup. MMODL / IJN: [id number] /
--- NOTE | 2020-12-23 14:10 | PN ---
PROGRESS NOTE Please add: Bilateral lower leg wound debridements mostly on the foot bilaterally related to diabetes mellitus. Type 2 diabetes mellitus and diabetic peripheral vascular disease as well as diabetic cellulitis and osteomyelitis, all of the above. MMODL / IJN: [id number] /
== END 2020-12-20 17:58 | disposition home health service (06) | DRG 853 ==
LOC: EC 07:11 → 4SSUR 09:30 → 3SCARD 12-13 11:50
PROVIDERS: ADMIT Family Medicine; ATTEND Family Medicine
PROC: 0KBV0ZZ Excision of Right Foot Muscle, Open Approach (ICD-10-PCS; 2020-12-08)
PROC: 0KBW0ZZ Excision of Left Foot Muscle, Open Approach (ICD-10-PCS; principal; 2020-12-08 12:30)
PROC: 30233N1 Transfusion of Nonautologous Red Blood Cells into Peripheral Vein, Percutaneous Approach (ICD-10-PCS; 2020-12-12)
PROC: B41D1ZZ Fluoroscopy of Aorta and Bilateral Lower Extremity Arteries using Low Osmolar Contrast (ICD-10-PCS; 2020-12-13)
PROC: 0JBN0ZZ Excision of Right Lower Leg Subcutaneous Tissue and Fascia, Open Approach (ICD-10-PCS; 2020-12-14)
PROC: 0QBP0ZZ Excision of Left Metatarsal, Open Approach (ICD-10-PCS; 2020-12-14)
PROC: 0QBN0ZZ Excision of Right Metatarsal, Open Approach (ICD-10-PCS; 2020-12-14)
PROC: 0JBP0ZZ Excision of Left Lower Leg Subcutaneous Tissue and Fascia, Open Approach (ICD-10-PCS; 2020-12-14)
PROC: B44HZZZ Ultrasonography of Bilateral Lower Extremity Arteries (ICD-10-PCS; 2020-12-14)
PROC: 02HV33Z Insertion of Infusion Device into Superior Vena Cava, Percutaneous Approach (ICD-10-PCS; 2020-12-15)
DX: A40.1 Sepsis due to streptococcus, group B (principal); J18.9 Pneumonia, unspecified organism; I13.0 Hypertensive heart and chronic kidney disease with heart failure and stage 1 through stage 4 chronic kidney disease, or unspecified chronic kidney disease; L03.116 Cellulitis of left lower limb; L03.115 Cellulitis of right lower limb; M86.172 Other acute osteomyelitis, left ankle and foot; M86.171 Other acute osteomyelitis, right ankle and foot; K52.1 Toxic gastroenteritis and colitis; J44.0 Chronic obstructive pulmonary disease with (acute) lower respiratory infection; L97.413 Non-pressure chronic ulcer of right heel and midfoot with necrosis of muscle; L97.423 Non-pressure chronic ulcer of left heel and midfoot with necrosis of muscle; E11.610 Type 2 diabetes mellitus with diabetic neuropathic arthropathy; D63.1 Anemia in chronic kidney disease; L97.512 Non-pressure chronic ulcer of other part of right foot with fat layer exposed; L97.522 Non-pressure chronic ulcer of other part of left foot with fat layer exposed; E11.51 Type 2 diabetes mellitus with diabetic peripheral angiopathy without gangrene; E11.22 Type 2 diabetes mellitus with diabetic chronic kidney disease; E11.621 Type 2 diabetes mellitus with foot ulcer; E11.69 Type 2 diabetes mellitus with other specified complication; I50.9 Heart failure, unspecified; E11.42 Type 2 diabetes mellitus with diabetic polyneuropathy; E11.628 Type 2 diabetes mellitus with other skin complications; I70.235 Atherosclerosis of native arteries of right leg with ulceration of other part of foot; E11.65 Type 2 diabetes mellitus with hyperglycemia; Z79.4 Long term (current) use of insulin; I48.0 Paroxysmal atrial fibrillation; N18.30 Chronic kidney disease, stage 3 unspecified; I70.245 Atherosclerosis of native arteries of left leg with ulceration of other part of foot; E66.01 Morbid (severe) obesity due to excess calories; Z20.822 Contact with and (suspected) exposure to COVID-19; E86.0 Dehydration; I25.5 Ischemic cardiomyopathy; E03.9 Hypothyroidism, unspecified; M19.042 Primary osteoarthritis, left hand; M19.041 Primary osteoarthritis, right hand; I25.2 Old myocardial infarction; H93.13 Tinnitus, bilateral; I25.10 Atherosclerotic heart disease of native coronary artery without angina pectoris; E78.5 Hyperlipidemia, unspecified; G47.33 Obstructive sleep apnea (adult) (pediatric); K57.90 Diverticulosis of intestine, part unspecified, without perforation or abscess without bleeding; T36.8X5A Adverse effect of other systemic antibiotics, initial encounter; K64.8 Other hemorrhoids; Z71.3 Dietary counseling and surveillance; Z68.33 Body mass index [BMI] 33.0-33.9, adult; Z79.890 Hormone replacement therapy; Z79.899 Other long term (current) drug therapy; Z95.810 Presence of automatic (implantable) cardiac defibrillator; Z95.1 Presence of aortocoronary bypass graft; Z95.5 Presence of coronary angioplasty implant and graft; Z98.42 Cataract extraction status, left eye; Z98.41 Cataract extraction status, right eye; Z96.1 Presence of intraocular lens; Z87.891 Personal history of nicotine dependence; Z82.5 Family history of asthma and other chronic lower respiratory diseases; Z83.3 Family history of diabetes mellitus; Z82.49 Family history of ischemic heart disease and other diseases of the circulatory system; Z82.3 Family history of stroke; Z84.1 Family history of disorders of kidney and ureter
CPT/HCPCS: 36200; 36415; 36573; 71046; 75625; 75716; 76937; 80053; 80202; 81001; 82009; 82565; 83605; 84145; 85025; 85652; 86140; 86850; 86900; 86901; 86920; 87040; 87045; 87046; 87070; 87075; 87077; 87186; 87205; 87635; 93005; 93922; 94760

== ENCOUNTER → 2020-12-06 | Day surgery (SDC) | payer MEDICARE ==
[2020-11-30 09:45] VITALS: BMI 29.0
[~2020-12-06] MED LIST changes: +SODIUM CHLORIDE 0.9% 1,000 ML IV SCH; +ceFAZolin 1 GM in SODIUM CHLORIDE 0.9% 250 ML IRRIGATION PRN
== END ==
LOC: CATHEP 06:29
PROVIDERS: ATTEND Internal Medicine Clinical Cardiac Electrophysiology
DX: Z53.9 Procedure and treatment not carried out, unspecified reason (principal)

== ENCOUNTER 2020-12-22 12:01 | Inpatient (IN) | payer MEDICARE ==
[2020-12-22] MEDS ORDERED: CALCIUM CARBONATE 500 MG CHEWABLE PO PRN (17:42)
[2020-12-22] MEDS ORDERED: ACETAMINOPHEN TAB 500 MG TAB PO PRN (17:42)
[2020-12-22] MEDS ORDERED: AMPICILLIN-SULBACTAM 3 GM VIAL IVPB SCH (18:00)
[2020-12-22 18:16] LABS: Glucose,Whole Blood 180 mg/dL (75-99)
[2020-12-22 19:04] LABS: ALT 18 U/L (4-49); AST 31 U/L (17-59); African American GFR (CKD) 63 (>60 ml/min/1.73 sqM); Albumin 2.6 g/dL (3.5-5.0); Albumin/Globulin Ratio 0.7; Alkaline Phosphatase 193 U/L (38-126); Anion Gap 6 mmol/L; Blood Urea Nitrogen 36 mg/dL (9-20); Calcium 8.5 mg/dL (8.4-10.2); Carbon Dioxide 33 mmol/L (22-30); Chloride 97 mmol/L (98-107); Globulin 3.5 g/dL; Glucose 156 mg/dL (74-99); Non-African American GFR(CKD) 54 (>60 ml/min/1.73 sqM); Potassium 3.8 mmol/L (3.5-5.1); Sodium 136 mmol/L (137-145); Total Bilirubin 0.4 mg/dL (0.2-1.3); Total Protein 6.1 g/dL (6.3-8.2)
[2020-12-22 19:07] LABS: Anisocytosis Slight; Basophils # (A) 0.1 k/uL (0-0.2); Basophils % (A) 1 %; Eosinophils # (A) 0.4 k/uL (0-0.7); Eosinophils % (A) 3 %; HCT 26.4 % (39.0-53.0); HGB 8.4 gm/dL (13.0-17.5); Hypochromasia Moderate; Lymphocytes # (A) 1.8 k/uL (1.0-4.8); Lymphocytes % (A) 16 %; MCH 25.1 pg (25.0-35.0); MCHC 31.8 g/dL (31.0-37.0); MCV 79.1 fL (80.0-100.0); Mean Platelet Volume 7.9; Monocytes # (A) 0.8 k/uL (0-1.0); Monocytes % (A) 7 %; Neutrophils # (A) 8.1 k/uL (1.3-7.7); Neutrophils % (A) 72 %; Platelet Count 319 k/uL (150-450); RBC 3.33 m/uL (4.30-5.90); RDW 16.4 % (11.5-15.5); WBC 11.2 k/uL (3.8-10.6)
[2020-12-22] MEDS: SODIUM CHLORIDE 0.9% 1,000 ML IV SCH (19:08)
[2020-12-22] MEDS: AMPICILLIN-SULBACTAM 3 GM in SODIUM CHLORIDE 0.9% 100 ML IVPB SCH (19:08)
--- NOTE | 2020-12-22 19:55 | XR ---
EXAMINATION TYPE: XR chest 1V portable DATE OF EXAM: 12/22/2020 COMPARISON: 12/06/2020 HISTORY: Shortness of breath. TECHNIQUE: Single frontal view of the chest is obtained. FINDINGS: There is unchanged diffuse mild hazy opacities. No pleural effusion, or pneumothorax seen. The cardiac silhouette size is borderline enlarged. Stable prior cardiothoracic postsurgical change s. The osseous structures are intact. IMPRESSION: Unchanged mild hazy opacities.
[2020-12-22 20:18] LABS: Glucose,Whole Blood 206 mg/dL (75-99)
[2020-12-22 20:31] LABS: Erythrocyte Sedimentation Rate 120 mm/hr (0-15)
[2020-12-22] MEDS: INSULIN ASPART (NovoLOG) 100 UNIT/ML VIAL SQ SCH (20:32)
[2020-12-22] MEDS: INSULIN DETEMIR (LEVEMIR) 100 UNIT/ML SYR SQ SCH (20:33)
[2020-12-22 22:18] LABS: Appearance,Urine Clear (Clear); Bilirubin,Urine Negative (Negative); Blood,Urine Negative (Negative); Color,Urine Yellow; Glucose,Urine (UA) 3+ (Negative); Hyaline Casts,Urine 1 /lpf (0-2); Ketones,Urine Negative (Negative); Leukocyte Esterase,Urine Negative (Negative); Mucus,Urine Rare /hpf; Nitrite,Urine Negative (Negative); PH, Urine 5.5 (5.0-8.0); Protein,Urine 1+ (Negative); RBC,Urine 1 /hpf (0-5); Squamous Epithelial Cell,Urine <1 /hpf (0-4); Urobilinogen,Urine <2.0 mg/dL (<2.0); WBC,Urine 1 /hpf (0-5)
[2020-12-23] MEDS: AMPICILLIN-SULBACTAM 3 GM in SODIUM CHLORIDE 0.9% 100 ML IVPB SCH ×4 (05:51→20:16)
[2020-12-23] MEDS: LEVOTHYROXINE 100 MCG TAB PO SCH (05:59)
[2020-12-23] MEDS: LEVOTHYROXINE 50 MCG TAB PO SCH (05:59)
[2020-12-23 07:18] LABS: Glucose,Whole Blood 109 mg/dL (75-99)
[2020-12-23] MEDS: INSULIN ASPART (NovoLOG) 100 UNIT/ML VIAL SQ SCH ×4 (08:07→20:09)
[2020-12-23] MEDS: LOSARTAN 50 MG TAB PO SCH (08:22)
[2020-12-23] MEDS: FUROSEMIDE 20 MG TAB PO SCH (08:22)
[2020-12-23] MEDS: METOPROLOL TARTRATE 25 MG TAB PO SCH (08:22)
[2020-12-23] MEDS: ASPIRIN 81 MG PO SCH (08:23)
[2020-12-23] MEDS: ATORVASTATIN 40 MG TAB PO SCH (08:23)
[2020-12-23] MEDS: FENOFIBRATE 160 MG TAB PO SCH (08:23)
--- NOTE | 2020-12-23 11:22 | P.CONS ---
History of Present Illness - Reason for Consult Consult date: 12/23/20 wound care - History of Present Illness This is a 65-year-old woman known to the wound care center with nonhealing ulcerations to bilateral lower feet plantar aspect nonhealing ulceration to the right foot dorsal aspect and a nonhealing ulceration to the left foot dorsal aspect. Patient has undergone 2 surgical debridements over the last few days. They have been utilizing silver to the site. Patient is scheduled to have another debridement sometime this week either in the wound care center or outpatient. Patient will be scheduled with Dr. Lira tomorrow for wound care appointment. Right foot ulceration plantar aspect is nonhealing ulceration with muscle exposure without necrosis significant amount of slough eschar noted with granulation seen throughout. Nonhealing ulceration to right foot dorsal aspect with fat layer exposure significant granulation seen throughout wound bed and minimal slough. Left foot plantar aspect ulceration is a nonhealing nonpressure ulceration with muscle involvement, significant amount of eschar noted with minimal granulation, left foot dorsal aspect ulceration with fatty layer exposure minimal slough noted with granulation syndrome wound bed. Review Of Systems: Constitutional: No fever, no chills, no night sweats. No weight change. No weakness, fatigue or lethargy. No daytime sleepiness. Integumentary:reports wounds, no lesions. No rash or pruritus. No unusual bruising. No change in hair or nails. Physical exam: General Appearance: Alert, cooperative, no distress, appears stated age. Skin: See HPI all other Skin color, texture, tugor normal, no rashes or lesions. Neurologic: Alert oriented x3 Assessment: 1. Nonhealing ulceration right foot with muscle involvement without necrosis 2. Nonhealing ulceration right dorsal foot with fat layer exposure 3. Nonhealing ulceration left plantar foot with muscle involvement 4. Nonhealing ulceration left dorsal foot with fat layer exposure 5. Diabetic foot ulcer Plan: 1. Apply Santyl edge to edge and the nickel in depth, saline moistened gauze, dry gauze, rolled gauze secured paper tape change daily. Patient will be seen tomorrow 12/21/2020 at 945 in the wound care center with Dr. Lira. 2. Minimal weightbearing Thank you for the consultation any questions please contact the wound care c enter DNP note has been reviewed and discussed with Dr. Lira and the impression and plan of care has been directed as dictated. Past Medical History Past Medical History: Diabetes Mellitus, Heart Failure, Diabetes Mellitus, Eye Disorder, GERD/Reflux, Hearing Disorder / Deafness, Hyperlipidemia, Hypertension, Myocardial Infarction (RI), Osteoarthritis (OA), Renal Disease, Thyroid Disorder Additional Past Medical History / Comment(s): IDDM type II, neuropathy bilateral hands/forearms/lower legs/feet, RECENT ADMISSION FOR bilateral lower leg wounds/WCC pt, bilateral leg edema, CURRENTLY LEFT LEG IS CLEAR, RT LEG STILL HAS SOME CELLULITIS WITH A DRESSING ON IT, ischemic cardiomyopathy/AICD, vtach, past medical record documents paroxysmal Afib/pt does not recall this, bilateral lower leg intermittent claudiaction/PAD, chronic renal disease stage III, anemia, bilateral tinnitis/[place], hypothyroid, arthritis bilateral hands with R hand worse, Last Myocardial Infarction Date:: 2006 History of Any Multi-Drug Resistant Organisms: None Reported Past Surgical History: Coronary Bypass/CABG, Heart Catheterization, Heart Catheterization With Stent, Pacemaker Additional Past Surgical History / Comment(s): PCI with stent 1998, 2006 CABG 3 vessel and AICD, DFTs, aortagram with runoff, colonoscopy, bilateral cataract removals/lens implants. Past Anesthesia/Blood Transfusion Reactions: No Reported Reaction Date of Last Stent Placement:: 1998 Type of Cardiac Device: Permanent Pacemaker Device Placement Date:: 2006 Past Psychological History: No Psychological Hx Reported Additional Psychological History / Comment(s): Pt resides with his spouse. He uses a cane or walker to ambulate. He drives. Smoking Status: Former smoker Past Alcohol Use History: None Reported Additional Past Alcohol Use History / Comment(s): STARTED SMOKING AT AGE 17 QUIT 2006 SMOKED 1 1/2 PPD Past Drug Use History: None Reported - Past Family History Sister(s) Additional Family Medical History / Comment(s): Pt has a sister with COPD, another sister with diabetes/copd/htn and another sister with diabetes. Father Family Medical History: Myocardial Infarction (RI) Additional Family Medical History / Comment(s): Father of a RI at the age of 75 yrs. Brother(s) Family Medical History: Coronary Artery Disease (CAD), CVA/TIA, Diabetes Mellitus, Myocardial Infarction (RI) Additional Family Medical History / Comment(s): One brother had a RI at 38yrs and at age 48yrs. Another brother is alive and had a stroke. Mother Family Medical History: Diabetes Mellitus, Renal Disease Additional Family Medical History / Comment(s): Mother at age 62 from renal failure Medications and Allergies Home Medications Medication Instructions Recorded Confirmed Type Fenofibrate 160 mg PO DAILY 03/31/14 12/22/20 History Insulin Lispro [humaLOG Kwikpen] See Protocol SQ ACHS PRN 03/31/14 12/22/20 History Losartan Potassium 50 mg PO DAILY 03/31/14 12/22/20 History Atorvastatin [Lipitor] 40 mg PO DAILY 05/24/20 12/22/20 History Levothyroxine Sodium [Synthroid] 50 mcg PO DAILY 05/24/20 12/22/20 History Levothyroxine Sodium [Synthroid] 200 mcg PO DAILY 05/24/20 12/22/20 History Metoprolol Tartrate 75 mg PO DAILY 05/24/20 12/22/20 History Dulaglutide [Trulicity] 3 mg SQ HENRY 11/30/20 12/22/20 History Furosemide [Lasix] 20 mg PO DAILY 11/30/20 12/22/20 History Insulin Glargine,Hum.rec.anlog 35 units SQ HS 11/30/20 12/22/20 History [Toujeo Solostar] Acetaminophen Tab [Tylenol] 1,000 mg PO Q6HR PRN 12/06/20 12/22/20 History Ampicillin-Sulbactam [Unasyn] 3 gm IVPB Q6HR vial 12/16/20 12/22/20 Rx Aspirin 81 mg PO DAILY 90 Days #90 chew 12/16/20 12/22/20 Rx Calcium Carbonate [Tums] 1,000 mg PO QID PRN 90 Days #90 12/16/20 12/22/20 Rx chew Collagenase [Santyl] 1 applic TOPICAL DAILY 12/22/20 12/22/20 History Allergies Allergy/AdvReac Type Severity Reaction Status Date / Time No Known Allergies Allergy Verified 12/22/20 16:27 Physical Exam Vitals: Vital Signs Temp Pulse Resp BP Pulse Ox 12/23/20 02:00 98.2 F 77 16 151/64 100 12/22/20 20:00 16 12/22/20 19:50 97.7 F 76 16 150/72 98 12/22/20 16:00 97.8 F 76 16 145/71 99 Intake and Output 12/22/20 12/23/20 12/23/20 22:59 06:59 14:59 Intake Total 240 Output Total 400 Balance -160 Intake: Oral 240 Output: Urine 400 Other: # Voids 3 Weight 93.894 kg Results CBC & Chem 7: 12/22/20 18:35 12/22/20 18:35 Labs: Abnormal Lab Results - Last 24 Hours (Table) 12/22/20 12/22/20 12/22/20 Range/Units 18:13 18:35 18:35 WBC 11.2 H (3.8-10.6) k/uL RBC 3.33 L (4.30-5.90) m/uL Hgb 8.4 L (13.0-17.5) gm/dL Hct 26.4 L (39.0-53.0) % MCV 79.1 L (80.0-100.0) fL RDW 16.4 H (11.5-15.5) % Neutrophils # 8.1 H (1.3-7.7) k/uL ESR 120 H (0-15) mm/hr Sodium 136 L (137-145) mmol/L Chloride 97 L (98-107) mmol/L Carbon Dioxide 33 H (22-30) mmol/L BUN 36 H (9-20) mg/dL Creatinine 1.37 H (0.66-1.25) mg/dL Glucose 156 H (74-99) mg/dL POC Glucose (mg/dL) 180 H (75-99) mg/dL Alkaline Phosphatase 193 H (38-126) U/L Total Protein 6.1 L (6.3-8.2) g/dL Albumin 2.6 L (3.5-5.0) g/dL Urine Protein (Negative) Urine Glucose (UA) (Negative) Urine Mucus (None) /hpf 12/22/20 12/22/20 12/23/20 Range/Units 20:15 21:50 07:17 WBC (3.8-10.6) k/uL RBC (4.30-5.90) m/uL Hgb (13.0-17.5) gm/dL Hct (39.0-53.0) % MCV (80.0-100.0) fL RDW (11.5-15.5) % Neutrophils # (1.3-7.7) k/uL ESR (0-15) mm/hr Sodium (137-145) mmol/L Chloride (98-107) mmol/L Carbon Dioxide (22-30) mmol/L BUN (9-20) mg/dL Creatinine (0.66-1.25) mg/dL Glucose (74-99) mg/dL POC Glucose (mg/dL) 206 H 109 H (75-99) mg/dL Alkaline Phosphatase (38-126) U/L Total Protein (6.3-8.2) g/dL Albumin (3.5-5.0) g/dL Urine Protein 1+ H (Negative) Urine Glucose (UA) 3+ H (Negative) Urine Mucus Rare H (None) /hpf Microbiology - Last 24 Hours (Table) 12/22/20 21:50 Urine Culture - Preliminary Urine,Clean Catch Assessment and Plan (1) Diabetic foot ulcer Current Visit: No Status: Acute Code(s): E11.621 - TYPE 2 DIABETES MELLITUS WITH FOOT ULCER; L97.509 - NON-PRESSURE CHRONIC ULCER OTH PRT UNSP FOOT W UNSP SEVERITY SNOMED Code(s): 407744045 (2) Non-healing ulcer of left foot with necrosis of muscle Current Visit: No Status: Acute Code(s): L97.523 - NON-PRS CHRONIC ULCER OTH PRT LEFT FOOT W NECROSIS OF MUSCLE SNOMED Code(s): 158029825 (3) Non-healing ulcer of right foot with necrosis of muscle Current Visit: No Status: Acute Code(s): L97.513 - NON-PRS CHRONIC ULCER OTH PRT RIGHT FOOT W NECROS MUSCLE SNOMED Code(s): 646851453
[2020-12-23 11:36] LABS: Glucose,Whole Blood 86 mg/dL (75-99)
[2020-12-23] MEDS: COLLAGENASE 250 UNIT/GM OINTMENT 30 GM TUBE TOPICAL SCH ×2 (11:38→16:15)
--- NOTE | 2020-12-23 12:24 | P.GSCN ---
History of Present Illness Consult date: 12/23/20 Reason for Consult: Bilateral lower extremity wounds Requesting physician: Johny Granado History of present illness: This is pleasant 65-year-old male with bilateral lower extremity wounds. He was recently hospitalized and discharged 3 days ago after bilateral lower extremity debridement. He followed up this past week with Dr. Lira from the wound care center and has home care. He has history of chronic anemia, had labs drawn with a reported hemoglobin of 7.0 was told to come to the emergency department for further evaluation. He also underwent aortogram with bilateral lower extremity runoffs on 12/13/2020 which revealed 90% left below the knee popliteal artery stenosis, right SFA occlusive disease 60% stenosis, bilateral MARGARITA TANNER ROTARY DRUM CONTINUOUS PROCESS. His past medical history includes type 2 diabetes mellitus, neuropathy, bilateral lower extremity chronic wounds, ischemic cardiomyopathy with AICD, bilateral intermittent claudication on chronic anemia, and chronic renal disease stage III. He denies any pain, fever, nausea, vomiting, chest pain, shortness of breath, black stool or blood in the stool. Review of Systems A 14 point review of systems was completed all pertinent positives and negatives as stated in the HPI Past Medical History Past Medical History: Diabetes Mellitus, Heart Failure, Diabetes Mellitus, Eye Disorder, GERD/Reflux, Hearing Disorder / Deafness, Hyperlipidemia, Hypertension, Myocardial Infarction ([place]), Osteoarthritis (OA), Renal Disease, Thyroid Disorder Additional Past Medical History / Comment(s): IDDM type II, neuropathy bilateral hands/forearms/lower legs/feet, RECENT ADMISSION FOR bilateral lower leg wounds/WCC pt, bilateral leg edema, CURRENTLY LEFT LEG IS CLEAR, RT LEG STILL HAS SOME CELLULITIS WITH A DRESSING ON IT, ischemic cardiomyopathy/AICD, vtach, past medical record documents paroxysmal Afib/pt does not recall this, bilateral lower leg intermittent claudiaction/PAD, chronic renal disease stage III, anemia, bilateral tinnitis/CAHTO, hypothyroid, arthritis bilateral hands with R hand worse, Last Myocardial Infarction Date:: 2006 History of Any Multi-Drug Resistant Organisms: None Reported Past Surgical History: Coronary Bypass/CABG, Heart Catheterization, Heart Catheterization With Stent, Pacemaker Additional Past Surgical History / Comment(s): PCI with stent 1998, 2006 CABG 3 vessel and AICD, DFTs, aortagram with runoff, colonoscopy, bilateral cataract removals/lens implants. Past Anesthesia/Blood Transfusion Reactions: No Reported Reaction Date of Last Stent Placement:: 1998 Type of Cardiac Device: Permanent Pacemaker Device Placement Date:: 2006 Past Psychological History: No Psychological Hx Reported Additional Psychological History / Comment(s): Pt resides with his spouse. He uses a cane or walker to ambulate. He drives. Smoking Status: Former smoker Past Alcohol Use History: None Reported Additional Past Alcohol Use History / Comment(s): STARTED SMOKING AT AGE 17 QUIT 2006 SMOKED 1 1/2 PPD Past Drug Use History: None Reported - Past Family History Sister(s) Additional Family Medical History / Comment(s): Pt has a sister with COPD, another sister with diabetes/copd/htn and another sister with diabetes. Father Family Medical History: Myocardial Infarction (WA) Additional Family Medical History / Comment(s): Father of a WA at the age of 75 yrs. Brother(s) Family Medical History: Coronary Artery Disease (CAD), CVA/TIA, Diabetes Melli tus, Myocardial Infarction (WA) Additional Family Medical History / Comment(s): One brother had a WA at 38yrs and at age 48yrs. Another brother is alive and had a stroke. Mother Family Medical History: Diabetes Mellitus, Renal Disease Additional Family Medical History / Comment(s): Mother at age 62 from renal failure Medications and Allergies Home Medications Medication Instructions Recorded Confirmed Type Fenofibrate 160 mg PO DAILY 03/31/14 12/22/20 History Insulin Lispro [humaLOG Kwikpen] See Protocol SQ ACHS PRN 03/31/14 12/22/20 History Losartan Potassium 50 mg PO DAILY 03/31/14 12/22/20 History Atorvastatin [Lipitor] 40 mg PO DAILY 05/24/20 12/22/20 History Levothyroxine Sodium [Synthroid] 50 mcg PO DAILY 05/24/20 12/22/20 History Levothyroxine Sodium [Synthroid] 200 mcg PO DAILY 05/24/20 12/22/20 History Metoprolol Tartrate 75 mg PO DAILY 05/24/20 12/22/20 History Dulaglutide [Trulicity] 3 mg SQ HENRY 11/30/20 12/22/20 History Furosemide [Lasix] 20 mg PO DAILY 11/30/20 12/22/20 History Insulin Glargine,Hum.rec.anlog 35 units SQ HS 11/30/20 12/22/20 History [Sofia Gomessara] Acetaminophen Tab [Tylenol] 1,000 mg PO Q6HR PRN 12/06/20 12/22/20 History Ampicillin-Sulbactam [Unasyn] 3 gm IVPB Q6HR vial 12/16/20 12/22/20 Rx Aspirin 81 mg PO DAILY 90 Days #90 chew 12/16/20 12/22/20 Rx Calcium Carbonate [Tums] 1,000 mg PO QID PRN 90 Days #90 12/16/20 12/22/20 Rx chew Collagenase [Santyl] 1 applic TOPICAL DAILY 12/22/20 12/22/20 History Allergies Allergy/AdvReac Type Severity Reaction Status Date / Time No Known Allergies Allergy Verified 12/22/20 16:27 Surgical - Exam Vital Signs Temp Pulse Resp BP Pulse Ox 97.8 F 76 16 145/71 99 12/22/20 16:00 12/22/20 16:00 12/22/20 16:00 12/22/20 16:00 12/22/20 16:00 General appearance: The patient is alert, oriented, appears in no acute distress. HET: Head is normocephalic and atraumatic. Neck: Supple without lymphadenopathy. Trachea midline. Heart: S1 S2. Regular rate and rhythm. Lungs: No crackles or wheezes are heard. Abdomen: Soft, nontender, nondistended. Extremities: Bilateral lower extremity edema. Patient had bilateral lower extremity dressings with Jose wrap intact. Palpable bilateral femoral pulses, absent dorsalis pedis pulses. Right foot ulceration plantar aspect nonhealing with muscle exposure without necrosis significant amount of slough eschar, with granulation seen throughout. Nonhealing ulceration to the dorsal aspect of the right foot with that later exposure with significant granulation seen throughout with minimal soft tissue. Left foot plantar aspect ulceration nonhealing with muscle involvement, with a significant amount of eschar noted with minimal granulation, left foot dorsal aspect ulceration with fatty layer exposure minimal slough tissue. Neurological: No focal deficits. Strength and sensation are grossly intact. Results - Labs 12/22/20 18:35 12/22/20 18:35 Abnormal Lab Results - Last 24 Hours (Table) 12/22/20 12/22/20 12/22/20 Range/Units 18:13 18:35 18:35 WBC 11.2 H (3.8-10.6) k/uL RBC 3.33 L (4.30-5.90) m/uL Hgb 8.4 L (13.0-17.5) gm/dL Hct 26.4 L (39.0-53.0) % MCV 79.1 L (80.0-100.0) fL RDW 16.4 H (11.5-15.5) % Neutrophils # 8.1 H (1.3-7.7) k/uL ESR 120 H (0-15) mm/hr Sodium 136 L (137-145) mmol/L Chloride 97 L (98-107) mmol/L Carbon Dioxide 33 H (22-30) mmol/L BUN 36 H (9-20) mg/dL Creatinine 1.37 H (0.66-1.25) mg/dL Glucose 156 H (74-99) mg/dL POC Glucose (mg/dL) 180 H (75-99) mg/dL Alkaline Phosphatase 193 H (38-126) U/L Total Protein 6.1 L (6.3-8.2) g/dL Albumin 2.6 L (3.5-5.0) g/dL Urine Protein (Negative) Urine Glucose (UA) (Negative) Urine Mucus (None) /hpf 12/22/20 12/22/20 12/23/20 Range/Units 20:15 21:50 07:17 WBC (3.8-10.6) k/uL RBC (4.30-5.90) m/uL Hgb (13.0-17.5) gm/dL Hct (39.0-53.0) % MCV (80.0-100.0) fL RDW (11.5-15.5) % Neutrophils # (1.3-7.7) k/uL ESR (0-15) mm/hr Sodium (137-145) mmol/L Chloride (98-107) mmol/L Carbon Dioxide (22-30) mmol/L BUN (9-20) mg/dL Creatinine (0.66-1.25) mg/dL Glucose (74-99) mg/dL POC Glucose (mg/dL) 206 H 109 H (75-99) mg/dL Alkaline Phosphatase (38-126) U/L Total Protein (6.3-8.2) g/dL Albumin (3.5-5.0) g/dL Urine Protein 1+ H (Negative) Urine Glucose (UA) 3+ H (Negative) Urine Mucus Rare H (None) /hpf Microbiology - Last 24 Hours (Table) 12/22/20 21:50 Urine Culture - Preliminary Urine,Clean Catch Diabetes panel 12/22/20 Range/Units 18:35 Sodium 136 L (137-145) mmol/L Potassium 3.8 (3.5-5.1) mmol/L Chloride 97 L (98-107) mmol/L Carbon Dioxide 33 H (22-30) mmol/L BUN 36 H (9-20) mg/dL Creatinine 1.37 H (0.66-1.25) mg/dL Glucose 156 H (74-99) mg/dL Calcium 8.5 (8.4-10.2) mg/dL AST 31 (17-59) U/L ALT 18 (4-49) U/L Alkaline Phosphatase 193 H (38-126) U/L Total Protein 6.1 L (6.3-8.2) g/dL Albumin 2.6 L (3.5-5.0) g/dL Calcium panel 12/22/20 Range/Units 18:35 Calcium 8.5 (8.4-10.2) mg/dL Albumin 2.6 L (3.5-5.0) g/dL Pituitary panel 12/22/20 Range/Units 18:35 Sodium 136 L (137-145) mmol/L Potassium 3.8 (3.5-5.1) mmol/L Chloride 97 L (98-107) mmol/L Carbon Dioxide 33 H (22-30) mmol/L BUN 36 H (9-20) mg/dL Creatinine 1.37 H (0.66-1.25) mg/dL Glucose 156 H (74-99) mg/dL Calcium 8.5 (8.4-10.2) mg/dL Adrenal panel 12/22/20 Range/Units 18:35 Sodium 136 L (137-145) mmol/L Potassium 3.8 (3.5-5.1) mmol/L Chloride 97 L (98-107) mmol/L Carbon Dioxide 33 H (22-30) mmol/L BUN 36 H (9-20) mg/dL Creatinine 1.37 H (0.66-1.25) mg/dL Glucose 156 H (74-99) mg/dL Calcium 8.5 (8.4-10.2) mg/dL Total Bilirubin 0.4 (0.2-1.3) mg/dL AST 31 (17-59) U/L ALT 18 (4-49) U/L Alkaline Phosphatase 193 H (38-126) U/L Total Protein 6.1 L (6.3-8.2) g/dL Albumin 2.6 L (3.5-5.0) g/dL Assessment and Plan Assessment: 1. Bilateral non-healing lower extremity wounds 2. Status post debridement of bilateral feet 3. Peripheral arterial disease, 90% left below the knee popliteal artery stenosis, right SFA occlusive disease 60% stenosis 4. Diabetes mellitus 5. Neuropathy 6. Ischemic cardiomyopathy 7. History of intermittent claudication/peripheral arterial disease 8. Chronic anemia 9. Chronic kidney disease Plan: 1. Supportive care 2. Consult wound care for local wound treatment, patient known to them 3. Plan for bilateral foot debridement Saturday with Primatrix 4. Continue with medical treatment 5. Further surgical recommendations to follow Thank you for this consultation, and allowing us take part in the plan of care of your patient during his hospital stay The impression and plan of care has been dictated as directed. Dr. Hughes I performed a history and examination of this patient, discussed the same with the dictator. I agree with the dictator's note ,documented as a scribe. Any additional findings or plans will be noted.
--- NOTE | 2020-12-23 14:05 | P.CRDCN ---
History of Present Illness History of present illness: This is a pleasant 65-year-old male past medical history significant for coronary artery disease status post CABG, ischemic cardiomyopathy with recovered ejection fraction and status post AICD placement, peripheral artery disease with bilateral occluded anterior tibial arteries in 2017, bilateral vascular wounds s/p 2 surgical debridements last week, type 2 diabetes,chronic kidney disease, neuropathy of upper and lower extremities. He follows in the office with Dr. Henderson. We have been asked to see in consultation for congestive heart failure. He follows with Dr. Ross for his vascular wounds on his bilateral legs. Patient states that he is admitted for low hemoglobin. He states he was at home and he had home nursing to check his labs and was told that his hemoglobin was 7.0 and to come to the emergency department. Patient was recently hospitalized and discharged 3 days ago after bilateral lower extremity debridement. On admission, Hgb 8.4, patient did not recieve any blood tranfusions. Patient seen and examined at bedside, in no acute distress. Patient denies shortness of breath, Chest pain, palpitations, lightheadedness, dizziness, syncope. Laboratory data reviewed, BNP 3180, sodium 136, potassium 3.8, creatinine 1.37, BUN 36, WBC 11.2, hemoglobin 8.4, platelets 319 Vital signs BP 127/64 HR 77, SpO2 95% on room air, afebrile. DIAGNOSTICS Chest xray unchanged mild hazy opacities. Cardiac silhouette size is borderline enlarged. Echo 08/29/20: EF 50-55%. Diastolic function evaluation indicates normal diastolic function. Carotid duplex to 08/23/20- Right: irregular heterogenous plaque noted in the ICA, bulb, CCA- 50-79% stenosis. Left: irregular heterogenous plaque noted in the ICA, bulb, CCA 16-49% stenosis. Current home cardiac medications include metoprolol titrate 75 mg daily, losartan 50 mg daily, Lasix 20 mg daily, atorvastatin 40 mg daily, fenofibrate 160mg daily, aspirin 81 mg daily. REVIEW OF SYSTEMS At the time of my exam: CONSTITUTIONAL: Denies fever and chills. CARDIOVASCULAR: Denies chest pain, shortness of breath, orthopnea, PND or palpitations. RESPIRATORY: Denies cough. GASTROINTESTINAL: Denies abdominal pain, diarrhea, constipation, nausea or vomiting. MUSCULOSKELETAL: +bilateral leg pain, Denies myalgias. NEUROLOGIC: Denies numbness, tingling, headacbe or weakness. ENDOCRINE: Denies fatigue, weight change, polydipsia or polyurina. GENITOURINARY: Denies burning, hematuria or urgency with micturation. HEMATOLOGIC: Denies history of anemia or bleeding. PHYSICAL EXAMINATION CONSTITUTIONAL: No apparent distress. HEENT: Head is normocephalic. Pupils are equal, round. Sclerae anicteric. Mucous membranes of the mouth are moist. No JVD. No carotid bruit. CHEST EXAMINATION: Lungs are clear to auscultation. No chest wall tenderness is noted on palpation or with deep breathing. HEART EXAMINATION: Regular rate and rhythm. S1, S2 heard. No murmurs, gallops or rub. ABDOMEN: Soft, nontender. Positive bowel sounds. EXTREMITIES: +2 radial pulses bilaterally. trace lower extremity edema and carolina ateral lower extremity pain with palpation. Left plantar food ulceration. Right dorsal foot ulceration open to air, left dorsal foot ulceration open to air. NEUROLOGIC EXAMINATION: Patient is awake, alert and oriented x3. ASSESSMENT -Coronary artery disease status post CABG -Ischemic cardiomyopathy with recovered ejection fraction and status post AICD placement -Peripheral artery disease with bilateral occluded anterior tibial arteries in 2017 -Bilateral vascular wounds -Type 2 Diabetes -Chronic Kidney Disease PLAN -Patient does not appear to be in congestive heart failure on exam. Most recent echocardiogram EF 50-55%. Diastolic function evaluation indicates normal diastolic function. -We will sign off at this time. Please reach out for any further questions or concerns. Thank you kindly for this consultation. Nurse Practitioner note has been reviewed, I agree with a documented findings and plan of care. Patient was seen and examined. Past Medical History Past Medical History: Diabetes Mellitus, Heart Failure, Diabetes Mellitus, Eye Disorder, GERD/Reflux, Hearing Disorder / Deafness, Hyperlipidemia, Hypertension, Myocardial Infarction ([place]), Osteoarthritis (OA), Renal Disease, Thyroid Disorder Additional Past Medical History / Comment(s): IDDM type II, neuropathy bilateral hands/forearms/lower legs/feet, RECENT ADMISSION FOR bilateral lower leg wounds/WCC pt, bilateral leg edema, CURRENTLY LEFT LEG IS CLEAR, RT LEG STILL HAS SOME CELLULITIS WITH A DRESSING ON IT, ischemic cardiomyopathy/AICD, vtach, past medical record documents paroxysmal Afib/pt does not recall this, bilateral lower leg intermittent claudiaction/PAD, chronic renal disease stage III, anemia, bilateral tinnitis/WASHOE, hypothyroid, arthritis bilateral hands with R hand worse, Last Myocardial Infarction Date:: 2006 History of Any Multi-Drug Resistant Organisms: None Reported Past Surgical History: Coronary Bypass/CABG, Heart Catheterization, Heart Catheterization With Stent, Pacemaker Additional Past Surgical History / Comment(s): PCI with stent 1998, 2006 CABG 3 vessel and AICD, DFTs, aortagram with runoff, colonoscopy, bilateral cataract removals/lens implants. Past Anesthesia/Blood Transfusion Reactions: No Reported Reaction Date of Last Stent Placement:: 1998 Type of Cardiac Device: Permanent Pacemaker Device Placement Date:: 2006 Past Psychological History: No Psychological Hx Reported Additional Psychological History / Comment(s): Pt resides with his spouse. He uses a cane or walker to ambulate. He drives. Smoking Status: Former smoker Past Alcohol Use History: None Reported Additional Past Alcohol Use History / Comment(s): STARTED SMOKING AT AGE 17 QUIT 2006 SMOKED 1 1/2 PPD Past Drug Use History: None Reported - Past Family History Sister(s) Additional Family Medical History / Comment(s): Pt has a sister with COPD, another sister with diabetes/copd/htn and another sister with diabetes. Father Family Medical History: Myocardial Infarction (IA) Additional Family Medical History / Comment(s): Father of a IA at the age of 75 yrs. Brother(s) Family Medical History: Coronary Artery Disease (CAD), CVA/TIA, Diabetes Mellitus, Myocardial Infarction (IA) Additional Family Medical History / Comment(s): One brother had a IA at 38yrs and at age 48yrs. Another brother is alive and had a stroke. Mother Family Medical History: Diabetes Mellitus, Renal Disease Additional Family Medical History / Comment(s): Mother at age 62 from renal failure Medications and Allergies Home Medications Medication Instructions Recorded Confirmed Type Fenofibrate 160 mg PO DAILY 03/31/14 12/22/20 History Insulin Lispro [humaLOG Kwikpen] See Protocol SQ ACHS PRN 03/31/14 12/22/20 History Losartan Potassium 50 mg PO DAILY 03/31/14 12/22/20 History Atorvastatin [Lipitor] 40 mg PO DAILY 05/24/20 12/22/20 History Levothyroxine Sodium [Synthroid] 50 mcg PO DAILY 05/24/20 12/22/20 History Levothyroxine Sodium [Synthroid] 200 mcg PO DAILY 05/24/20 12/22/20 History Metoprolol Tartrate 75 mg PO DAILY 05/24/20 12/22/20 History Dulaglutide [Trulicity] 3 mg SQ HENRY 11/30/20 12/22/20 History Furosemide [Lasix] 20 mg PO DAILY 11/30/20 12/22/20 History Insulin Glargine,Hum.rec.anlog 35 units SQ HS 11/30/20 12/22/20 History [Touadamo Solostar] Acetaminophen Tab [Tylenol] 1,000 mg PO Q6HR PRN 12/06/20 12/22/20 History Ampicillin-Sulbactam [Unasyn] 3 gm IVPB Q6HR vial 12/16/20 12/22/20 Rx Aspirin 81 mg PO DAILY 90 Days #90 chew 12/16/20 12/22/20 Rx Calcium Carbonate [Tums] 1,000 mg PO QID PRN 90 Days #90 12/16/20 12/22/20 Rx chew Collagenase [Santyl] 1 applic TOPICAL DAILY 12/22/20 12/22/20 History Allergies Allergy/AdvReac Type Severity Reaction Status Date / Time No Known Allergies Allergy Verified 12/22/20 16:27 Physical Exam Vitals: Vital Signs Temp Pulse Resp BP Pulse Ox 12/23/20 02:00 98.2 F 77 16 151/64 100 12/22/20 20:00 16 12/22/20 19:50 97.7 F 76 16 150/72 98 12/22/20 16:00 97.8 F 76 16 145/71 99 Intake and Output 12/22/20 12/23/20 12/23/20 22:59 06:59 14:59 Intake Total 240 Output Total 400 Balance -160 Intake: Oral 240 Output: Urine 400 Other: # Voids 3 Weight 93.894 kg Results 12/22/20 18:35 12/22/20 18:35 Cardiac Enzymes 12/22/20 Range/Units 18:35 AST 31 (17-59) U/L CBC 12/22/20 Range/Units 18:35 WBC 11.2 H (3.8-10.6) k/uL RBC 3.33 L (4.30-5.90) m/uL Hgb 8.4 L (13.0-17.5) gm/dL Hct 26.4 L (39.0-53.0) % Plt Count 319 (150-450) k/uL Comprehensive Metabolic Panel 12/22/20 Range/Units 18:35 Sodium 136 L (137-145) mmol/L Potassium 3.8 (3.5-5.1) mmol/L Chloride 97 L (98-107) mmol/L Carbon Dioxide 33 H (22-30) mmol/L BUN 36 H (9-20) mg/dL Creatinine 1.37 H (0.66-1.25) mg/dL Glucose 156 H (74-99) mg/dL Calcium 8.5 (8.4-10.2) mg/dL AST 31 (17-59) U/L ALT 18 (4-49) U/L Alkaline Phosphatase 193 H (38-126) U/L Total Protein 6.1 L (6.3-8.2) g/dL Albumin 2.6 L (3.5-5.0) g/dL Current Medications Generic Name Dose Route Start Last Admin Trade Name Freq PRN Reason Stop Dose Admin Acetaminophen 1,000 mg 12/22/20 17:42 Acetaminophen Tab 500 Mg Tab PO Q6HR PRN Pain Aspirin 81 mg 12/23/20 09:00 Aspirin 81 Mg PO DAILY [facility] Atorvastatin Calcium 40 mg 12/23/20 09:00 Atorvastatin 40 Mg Tab PO DAILY [facility] Calcium Carbonate/Glycine 1,000 mg 12/22/20 17:42 Calcium Carbonate 500 Mg Chewable PO QID PRN Heartburn Fenofibrate 160 mg 12/23/20 09:00 Fenofibrate 160 Mg Tab PO DAILY [facility] Furosemide 20 mg 12/23/20 09:00 Furosemide 20 Mg Tab PO DAILY [facility] Sodium Chloride 1,000 mls @ 20 mls/hr 12/22/20 17:45 12/22/20 19:08 Saline 0.9% IV 20 mls/hr .Q24H VICK Administration Ampicillin Sodium/Sulbactam 100 mls @ 200 mls/hr 12/22/20 20:00 12/23/20 05:51 Sodium 3 gm/ Sodium Chloride IVPB Not Given Q6H [facility] Insulin Aspart 0 unit 12/22/20 21:00 12/22/20 20:32 Insulin Aspart (Novolog) 100 Unit/Ml Vial SQ 4 unit ACHS VICK Administration Protocol Insulin Detemir 35 unit 12/22/20 21:00 12/22/20 20:33 Insulin Detemir (Levemir) 100 Unit/Ml Syr SQ 35 unit HS VICK Administration Levothyroxine Sodium 50 mcg 12/23/20 06:30 12/23/20 05:59 Levothyroxine 50 Mcg Tab PO 50 mcg 0630 VICK Administration Levothyroxine Sodium 200 mcg 12/23/20 06:30 12/23/20 05:59 Levothyroxine 100 Mcg Tab PO 200 mcg 0630 VICK Administration Losartan Potassium 50 mg 12/23/20 09:00 Losartan 50 Mg Tab PO DAILY VICK Metoprolol Tartrate 75 mg 12/23/20 09:00 Metoprolol Tartrate 25 Mg Tab PO DAILY [facility] Collagenase 250 Unit 1 each 12/23/20 09:00 /Gm Ointment 30 Gm TOPICAL Tube DAILY [facility] Non-Formulary Medication 3 mg 12/25/20 09:00 Dulaglutide [Trulicity] SQ HENRY VICK Intake and Output 12/22/20 12/23/20 12/23/20 22:59 06:59 14:59 Intake Total 240 Output Total 400 Balance -160 Intake: Oral 240 Output: Urine 400 Other: # Voids 3 Weight 93.894 kg 12/22/20 18:35 12/22/20 18:35
--- NOTE | 2020-12-23 15:07 | HP ---
HISTORY AND PHYSICAL A 65-year-old white male admitted with severe swelling of the extremities, severe redness, excoriation, worsening wounds in bilateral feet and severe anemia who is admitted for failed outpatient treatment. His cardiomyopathy with recovered ejection fraction, status post AICD placement, peripheral artery disease, bilateral occluded anterior tibial arteries. He is status post debridement last week. He continues to have severe gangrene to the bottom of both feet and wounds are severe covering about 50% of the feet posteriorly. He has severe swelling of his legs when he was sent home a couple days ago. He was admitted for severe low hemoglobin of 7. His hemoglobin was 8.4 on admission. We got him on his antibiotics wound care for possible debridement which worsened wound infections. His chest x-ray unchanged mild hazy opacities, cardiac silhouette borderline enlarged. Echo shows 50% to 55% ejection fraction. Carotid shows blockage 60% to 79% in the internal carotid artery on the right. Left is about 60% to 49% stenosis. Physical exam as mentioned above weakness fatigue, shortness of breath at rest and with any exertion. PHYSICAL EXAMINATION: Vital signs stable. Afebrile. CARDIOVASCULAR: S1, S2. LUNGS: Rales at the bases. Scattered rhonchi. HEMATOLOGY: 3+ pedal edema bilaterally. Wound dressings to the bilateral feet. As mentioned, 40% to 50% of the feet with gangrene changes on the bottom. HEAD: Pupils equal, round, reactive. LUNGS: Clear. ASSESSMENT: 1. Suspect acute on chronic diastolic heart failure. 2. Coronary artery disease. 3. Ischemic cardiomyopathy. 4. Status post AICD. 5. Peripheral artery disease. 6. Bilateral vascular wounds. 7. Type 2 diabetes mellitus. 8. Chronic kidney disease. PLAN: Plan is to continue with IV antibiotics. Possibly a change diastolic heart failure medications. Wound care, possibly debridement, possibly amputation will be done. Await for vascular consult. Prognosis on him is very guarded at this time. Hemoglobin, want to give him a unit of blood if the hemoglobin goes below 7, currently is 8.3. MMODL / IJN: [id number] /
--- NOTE | 2020-12-23 15:25 | P.CONS ---
History of Present Illness - Reason for Consult Consult date: 12/22/20 Diabetic foot ulcer and cellulitis Requesting physician: Johny Granado - Chief Complaint Low hemoglobin x 1 day - History of Present Illness Patient is a 65 year male who was recently admitted at this facility in this patient who did have bilateral diabetic foot infection in this patient due to multiple debridement of the left foot culture were positive for Str eptococcus agalactiae MSSA anaerobic gram-positive cocci patient did got a PICC line and was advised Unasyn 3 g every 8 hours for 3 weeks the patient was receiving at home apparently the patient did have a blood draw in the outpatient setting he was noticed to have low hemoglobin for the patient has been admitted directly to the hospital for GI workup infection disease was consulted for follow-up on his diabetic foot wound and infection, patient currently denies having any fever or any chills, the patient denies having any chest pain or shortness, Evelin did mention some blood in the stool denies any worsening pain to the left foot treatment to the left foot wound is currently sent and followed by moist dressing with Aquacel dressing to the right foot. The patient was doing at home Review of Systems Positive point has been mentioned in the HPI rest of the systems are negative Past Medical History Past Medical History: Diabetes Mellitus, Heart Failure, Diabetes Mellitus, Eye Disorder, GERD/Reflux, Hearing Disorder / Deafness, Hyperlipidemia, Hypertension, Myocardial Infarction (IA), Osteoarthritis (OA), Renal Disease, Thyroid Disorder Additional Past Medical History / Comment(s): IDDM type II, neuropathy bilateral hands/forearms/lower legs/feet, RECENT ADMISSION FOR bilateral lower leg wounds/WCC pt, bilateral leg edema, CURRENTLY LEFT LEG IS CLEAR, RT LEG STILL HAS SOME CELLULITIS WITH A DRESSING ON IT, ischemic cardiomyopathy/AICD, vtach, past medical record documents paroxysmal Afib/pt does not recall this, bilateral lower leg intermittent claudiaction/PAD, chronic renal disease stage III, anemia, bilateral tinnitis/[place], hypothyroid, arthritis bilateral hands with R hand worse, Last Myocardial Infarction Date:: 2006 History of Any Multi-Drug Resistant Organisms: None Reported Past Surgical History: Coronary Bypass/CABG, Heart Catheterization, Heart Catheterization With Stent, Pacemaker Additional Past Surgical History / Comment(s): PCI with stent 2006 CABG 3 vessel and AICD, DFTs, aortagram with runoff, colonoscopy, bilateral cataract removals/lens implants. Past Anesthesia/Blood Transfusion Reactions: No Reported Reaction Date of Last Stent Placement:: 1998 Type of Cardiac Device: Permanent Pacemaker Device Placement Date:: 2006 Past Psychological History: No Psychological Hx Reported Additional Psychological History / Comment(s): Pt resides with his spouse. He uses a cane or walker to ambulate. He drives. Smoking Status: Former smoker Past Alcohol Use History: None Reported Additional Past Alcohol Use History / Comment(s): STARTED SMOKING AT AGE 17 QUIT 2006 SMOKED 1 1/2 PPD Past Drug Use History: None Reported - Past Family History Sister(s) Additional Family Medical History / Comment(s): Pt has a sister with COPD, another sister with diabetes/copd/htn and another sister with diabetes. Father Family Medical History: Myocardial Infarction (IA) Additional Family Medical History / Comment(s): Father of a IA at the age of 75 yrs. Brother(s) Family Medical History: Coronary Artery Disease (CAD), CVA/TIA, Diabetes Mellitus, Myocardial Infarction (IA) Additional Family Medical History / Comment(s): One brother had a IA at 38yrs and at age 48yrs. Another brother is alive and had a stroke. Mother Family Medical History: Diabetes Mellitus, Renal Disease Additional Family Medical History / Comment(s): Mother at age 62 from renal failure Medications and Allergies Home Medications Medication Instructions Recorded Confirmed Type Fenofibrate 160 mg PO DAILY 03/31/14 12/22/20 History Insulin Lispro [humaLOG Kwikpen] See Protocol SQ ACHS PRN 03/31/14 12/22/20 History Losartan Potassium 50 mg PO DAILY 03/31/14 12/22/20 History Atorvastatin [Lipitor] 40 mg PO DAILY 05/24/20 12/22/20 History Levothyroxine Sodium [Synthroid] 50 mcg PO DAILY 05/24/20 12/22/20 History Levothyroxine Sodium [Synthroid] 200 mcg PO DAILY 05/24/20 12/22/20 History Metoprolol Tartrate 75 mg PO DAILY 05/24/20 12/22/20 History Dulaglutide [Trulicity] 3 mg SQ HENRY 11/30/20 12/22/20 History Furosemide [Lasix] 20 mg PO DAILY 11/30/20 12/22/20 History Insulin Glargine,Hum.rec.anlog 35 units SQ HS 11/30/20 12/22/20 History [T[place]] Acetaminophen Tab [Tylenol] 1,000 mg PO Q6HR PRN 12/06/20 12/22/20 History Ampicillin-Sulbactam [Unasyn] 3 gm IVPB Q6HR vial 12/16/20 12/22/20 Rx Aspirin 81 mg PO DAILY 90 Days #90 chew 12/16/20 12/22/20 Rx Calcium Carbonate [Tums] 1,000 mg PO QID PRN 90 Days #90 12/16/20 12/22/20 Rx chew Collagenase [Santyl] 1 applic TOPICAL DAILY 12/22/20 12/22/20 History Allergies Allergy/AdvReac Type Severity Reaction Status Date / Time No Known Allergies Allergy Verified 12/22/20 16:27 Physical Exam Vitals: Vital Signs Temp Pulse Resp BP Pulse Ox 12/23/20 08:00 77 16 12/23/20 02:00 98.2 F 77 16 151/64 100 12/22/20 20:00 16 12/22/20 19:50 97.7 F 76 16 150/72 98 12/22/20 16:00 97.8 F 76 16 145/71 99 Intake and Output 12/22/20 12/23/20 12/23/20 22:59 06:59 14:59 Intake Total 240 Output Total 400 Balance -160 Intake: Oral 240 Output: Urine 400 Other: # Voids 3 Weight 93.894 kg GENERAL DESCRIPTION: Middle-aged male lying in bed, no distress. No tachypnea or accessory muscle of respiration use. HEENT: Shows Pallor , no scleral icterus. Oral mucous membrane is dry. No pharyngeal erythema or thrush NECK: Trachea central, no thyromegaly. LUNGS: Unlabored breathing. Clear to auscultation anteriorly. No wheeze or crackle. HEART: S1, S2, regular rate and rhythm. No loud murmur ABDOMEN: Soft, no tenderness , guarding or rigidity, no organomegaly EXTREMITIES: Left foot plantar aspect did have a deep wound with tendon exposed some slough tissue some surrounding swelling no redness did have drainage but no foul-smelling SKIN: No rash, no masses palpable. NEUROLOGICAL: The patient is awake, alert, oriented x3, mood and affect normal. Results CBC & Chem 7: 12/22/20 18:35 12/22/20 18:35 Labs: Abnormal Lab Results - Last 24 Hours (Table) 12/22/20 12/22/20 12/22/20 Range/Units 18:13 18:35 18:35 WBC 11.2 H (3.8-10.6) k/uL RBC 3.33 L (4.30-5.90) m/uL Hgb 8.4 L (13.0-17.5) gm/dL Hct 26.4 L (39.0-53.0) % MCV 79.1 L (80.0-100.0) fL RDW 16.4 H (11.5-15.5) % Neutrophils # 8.1 H (1.3-7.7) k/uL ESR 120 H (0-15) mm/hr Sodium 136 L (137-145) mmol/L Chloride 97 L (98-107) mmol/L Carbon Dioxide 33 H (22-30) mmol/L BUN 36 H (9-20) mg/dL Creatinine 1.37 H (0.66-1.25) mg/dL Glucose 156 H (74-99) mg/dL POC Glucose (mg/dL) 180 H (75-99) mg/dL Alkaline Phosphatase 193 H (38-126) U/L Total Protein 6.1 L (6.3-8.2) g/dL Albumin 2.6 L (3.5-5.0) g/dL Urine Protein (Negative) Urine Glucose (UA) (Negative) Urine Mucus (None) /hpf 12/22/20 12/22/20 12/23/20 Range/Units 20:15 21:50 07:17 WBC (3.8-10.6) k/uL RBC (4.30-5.90) m/uL Hgb (13.0-17.5) gm/dL Hct (39.0-53.0) % MCV (80.0-100.0) fL RDW (11.5-15.5) % Neutrophils # (1.3-7.7) k/uL ESR (0-15) mm/hr Sodium (137-145) mmol/L Chloride (98-107) mmol/L Carbon Dioxide (22-30) mmol/L BUN (9-20) mg/dL Creatinine (0.66-1.25) mg/dL Glucose (74-99) mg/dL POC Glucose (mg/dL) 206 H 109 H (75-99) mg/dL Alkaline Phosphatase (38-126) U/L Total Protein (6.3-8.2) g/dL Albumin (3.5-5.0) g/dL Urine Protein 1+ H (Negative) Urine Glucose (UA) 3+ H (Negative) Urine Mucus Rare H (None) /hpf Microbiology - Last 24 Hours (Table) 12/22/20 21:50 Urine Culture - Preliminary Urine,Clean Catch Assessment and Plan Assessment: 1-patient with left diabetic foot infection extensive with significant deep wound tendon exposed did have some slough tissue, and this patient recent culture positive for strep MSSA and anaerobes for the patient was receiving Unasyn now admitted to the hospital for anemia and possible GI bleed, no evidence of any worsening infection to the left foot 2-patient with a right diabetic foot ulcers not as extensive as the left (1) Diabetic foot ulcer Current Visit: Yes Status: Acute Code(s): E11.621 - TYPE 2 DIABETES MELLITUS WITH FOOT ULCER; L97.509 - NON-PRESSURE CHRONIC ULCER OTH PRT UNSP FOOT W UNSP SEVERITY SNOMED Code(s): 827014932 (2) Chronic ulcer of left leg with fat layer exposed Current Visit: No Status: Acute Code(s): L97.922 - NON-PRS CHR ULC UNSP PRT OF L LOW LEG W FAT LAYER EXPOSED SNOMED Code(s): 69847098 Plan: 1-patient will be treated with Unasyn 3 g every 6 hours 2-local wound care with Santyl followed by moist dressing to be changed daily the patient may benefit from wound VAC application We will follow on clinical condition and cultures to further adjust medication if needed Thank you for this consultation will follow this patient with you Time with Patient: Greater than 30
[2020-12-23 16:51] LABS: Glucose,Whole Blood 93 mg/dL (75-99)
--- NOTE | 2020-12-23 17:28 | PN ---
PROGRESS NOTE This is a 65-year-old white male with cellulitis of bilateral lower extremities. He is going to have debridement on Saturday or Saturday. He remains on broad-spectrum antibiotics over the weekend. Monitor his electrolytes and his breathing. Congestive heart failure will be addressed by Cardiology. CARDIOVASCULAR: S1, S2. LUNGS: Clear. GI: Distended. EXTREMITIES: Extremities are wrapped from the toes up to the knees. ASSESSMENT: 1. Cellulitis of the legs. 2. Charcot deformities. 3. Peripheral arterial disease. 4. Diabetes mellitus. 5. Hypertension. PROGNOSIS: Extremely guarded. Wait for further wound debridement next week. Continue with broad-spectrum antibiotics at this time. Prognosis guarded. MMODL / IJN: [id number] /
[2020-12-23 20:10] LABS: Glucose,Whole Blood 109 mg/dL (75-99)
[2020-12-23] MEDS: INSULIN DETEMIR (LEVEMIR) 100 UNIT/ML SYR SQ SCH (20:10)
[2020-12-23] MEDS: SODIUM CHLORIDE 0.9% 1,000 ML IV SCH (20:17)
--- NOTE | 2020-12-23 23:12 | PN ---
PROGRESS NOTE DATE OF SERVICE: 12/23/2020 REASON FOR FOLLOWUP: Right diabetic foot wound and cellulitis. INTERVAL HISTORY: The patient is currently afebrile. The patient is breathing comfortably. Denies having any chest pain, shortness of breath or cough. No abdominal pain or any worsening pain to the left foot. PHYSICAL EXAMINATION: Blood pressure is 127/64 with pulse of 59, temperature 98.2. He is 95% on room air. General description is a middle-aged male lying in bed in no distress. RESPIRATORY SYSTEM: Unlabored breathing. Clear to auscultation anteriorly. HEART: S1, S2. Regular rate and rhythm. ABDOMEN: Soft. No tenderness. LABS: Hemoglobin 8.4, white count 11.2. DIAGNOSTIC IMPRESSION AND PLAN: Patient with bilateral diabetic foot ulcers, left greater than right, in this patient who did have extensive debridement. Culture has been multiple pathogens and the patient is covered with Unasyn. Local care with Santyl. Would benefit from wound V.A.C. Continue supportive care. MMODL / IJN: [id number] /
[2020-12-24] MEDS: AMPICILLIN-SULBACTAM 3 GM in SODIUM CHLORIDE 0.9% 100 ML IVPB SCH ×4 (02:42→21:12)
[2020-12-24] MEDS: LEVOTHYROXINE 100 MCG TAB PO SCH (06:15)
[2020-12-24] MEDS: LEVOTHYROXINE 50 MCG TAB PO SCH (06:15)
[2020-12-24 07:37] LABS: Glucose,Whole Blood 75 mg/dL (75-99)
[2020-12-24] MEDS: INSULIN ASPART (NovoLOG) 100 UNIT/ML VIAL SQ SCH ×4 (07:55→21:25)
[2020-12-24] MEDS: FUROSEMIDE 20 MG TAB PO SCH (09:30)
[2020-12-24] MEDS: LOSARTAN 50 MG TAB PO SCH (09:30)
[2020-12-24] MEDS: METOPROLOL TARTRATE 25 MG TAB PO SCH (09:30)
[2020-12-24] MEDS: ATORVASTATIN 40 MG TAB PO SCH (09:30)
[2020-12-24] MEDS: ASPIRIN 81 MG PO SCH (09:30)
[2020-12-24] MEDS: FENOFIBRATE 160 MG TAB PO SCH (09:31)
[2020-12-24] MEDS: COLLAGENASE 250 UNIT/GM OINTMENT 30 GM TUBE TOPICAL SCH ×2 (09:31)
[2020-12-24 12:38] LABS: Glucose,Whole Blood 155 mg/dL (75-99)
--- NOTE | 2020-12-24 13:42 | PN ---
PROGRESS NOTE 65-year-old white male who was admitted with severe cellulitis, leg edema, fluid overload, severe anemia, started on antibiotics, possible debridement Saturday or Saturday. Wants to stay in the hospital until his debridement, O2 95% on room air, pulse is 59, blood pressure 120s over 60s, temperature 98.2. CARDIOVASCULAR: S1, S2. Lungs are clear. Abdomen is soft. Extremities 2 to 3+ edema. LABORATORY DATA: Sugars are in the low 100s to 90s, low at 75. Plan is to get debridement Saturday or Saturday. Continue with wound care. IMPRESSION: 1. Diabetic wound infection. 2. Peripheral arterial disease. 3. Gangrene to the feet. 4. Diabetes mellitus. 5. Congestive heart failure. 6. Hypertension. 7. Hypothyroidism. Please see further orders. Await debridement on Saturday or Saturday. MMELÍASL / JENNAN: [id number] /
--- NOTE | 2020-12-24 14:53 | P.PN ---
Subjective Progress Note Date: 12/24/20 Patient seen and examined. No complaints. No issues overall. Objective - Vital Signs Vital signs: Vital Signs Temp 98.0 F 12/24/20 12:34 Pulse 59 L 12/24/20 12:34 Resp 12 12/24/20 12:34 BP 113/61 12/24/20 12:34 Pulse Ox 98 12/24/20 12:34 Intake & Output 12/23/20 12/24/20 12/24/20 18:59 06:59 18:59 Intake Total 640 Output Total 1050 825 Balance -410 -825 Intake: Intake, IV Titration 100 Amount Ampicillin-Sulbactam 3 gm 100 In Sodium Chloride 0.9% 100 ml @ 200 mls/hr IVPB Q6H VICK Rx#:[id number] Oral 540 Output: Urine 1050 825 Other: Voiding Method Bedpan Urinal Urinal # Voids 0 - Exam Gen. a pleasant operative male in no acute distress sitting in his bed with family member at bedside. HEENT is normal cephalic, atraumatic, etc. he motion intact. Heart appears regular at this time. Lungs are clear bilaterally. Abdomen soft, nontender nondistended. Obese. Examination is show no clubbing, cyanosis or edema. Dressings in place clean and dry. Cranial nerves II through XII grossly intact. Normal mood and affect. - Labs CBC & Chem 7: 12/22/20 18:35 12/22/20 18:35 Labs: Abnormal Lab Results - Last 24 Hours (Table) 12/23/20 12/24/20 Range/Units 20:07 12:37 POC Glucose (mg/dL) 109 H 155 H (75-99) mg/dL Microbiology - Last 24 Hours (Table) 12/22/20 21:50 Urine Culture - Preliminary Urine,Clean Catch Assessment and Plan Assessment: Bilateral lower extremity nonhealing wounds due to Charcot foot and diabetes Status post debridement of bilateral lower extremities Peripheral arterial disease Diabetes mellitus Neuropathy Ischemic cardiomyopathy Chronic anemia Chronic kidney disease Plan: Continue supportive care at this time. Continue wound care. Continue dressing changes. We'll plan for bilateral lower extremity debridement with skin substitute placement on Saturday
[2020-12-24 17:43] LABS: Glucose,Whole Blood 151 mg/dL (75-99)
[2020-12-24] MEDS: SODIUM CHLORIDE 0.9% 1,000 ML IV SCH (18:00)
--- NOTE | 2020-12-24 18:06 | PN ---
PROGRESS NOTE DATE OF SERVICE: 12/24/2020. REASON FOR FOLLOW UP: Bilateral diabetic foot ulcer and cellulitis. INTERVAL HISTORY: The patient is currently afebrile. Patient is breathing comfortably. Patient denies having any chest pain or shortness of breath, cough. No abdominal pain or any worsening pain to the foot. PHYSICAL EXAMINATION: Blood pressure 113/61, pulse of 89, temperature 98. He is 98% on room air. General description is a middle-aged male lying in bed in no distress. Respiratory system: Unlabored breathing, clear to auscultation anteriorly. Heart S1, S2. Regular rate and rhythm. Abdomen soft, no tenderness. The left foot plantar wound with slough tissue. His third toe is getting more swollen, slightly have necrotic tip. No drainage. LABS: No new labs have been obtained today. DIAGNOSTIC IMPRESSION AND PLAN: Patient with bilateral diabetic foot wound and cellulitis, left greater than right. Previous culture was multiple pathogens. Patient is covered with Unasyn to continue wound care with Santyl and moist dressing. His left third toe is getting infected now and may need further debridement or amputation. Will discuss with Vascular Surgery. Continue supportive care. MMODL / IJN: [id number] /
[2020-12-24 21:03] LABS: Glucose,Whole Blood 200 mg/dL (75-99)
[2020-12-24] MEDS: INSULIN DETEMIR (LEVEMIR) 100 UNIT/ML SYR SQ SCH (21:18)
[2020-12-25] MEDS: AMPICILLIN-SULBACTAM 3 GM in SODIUM CHLORIDE 0.9% 100 ML IVPB SCH ×4 (02:08→19:38)
[2020-12-25] MEDS: LEVOTHYROXINE 100 MCG TAB PO SCH (05:29)
[2020-12-25] MEDS: LEVOTHYROXINE 50 MCG TAB PO SCH (05:29)
[2020-12-25 07:08] LABS: Glucose,Whole Blood 216 mg/dL (75-99)
[2020-12-25 08:06] LABS: ALT 18 U/L (4-49); AST 33 U/L (17-59); African American GFR (CKD) 58 (>60 ml/min/1.73 sqM); Albumin 2.1 g/dL (3.5-5.0); Albumin/Globulin Ratio 0.7; Alkaline Phosphatase 172 U/L (38-126); Anion Gap 5 mmol/L; Blood Urea Nitrogen 32 mg/dL (9-20); Calcium 7.4 mg/dL (8.4-10.2); Carbon Dioxide 31 mmol/L (22-30); Chloride 102 mmol/L (98-107); Glucose 201 mg/dL (74-99); Non-African American GFR(CKD) 50 (>60 ml/min/1.73 sqM); Potassium 4.3 mmol/L (3.5-5.1); Sodium 138 mmol/L (137-145); Total Bilirubin 0.3 mg/dL (0.2-1.3); Total Protein 5.1 g/dL (6.3-8.2)
[2020-12-25 08:39] LABS: Anisocytosis Slight; HCT 21.8 % (39.0-53.0); Hypochromasia Slight; MCHC 32.2 g/dL (31.0-37.0); MCV 77.6 fL (80.0-100.0); Mean Platelet Volume 7.8; Microcytosis Slight; Platelet Count 258 k/uL (150-450); RDW 16.9 % (11.5-15.5); WBC 7.7 k/uL (3.8-10.6)
[2020-12-25] MEDS ORDERED: DULAGLUTIDE 3 MG/0.5 ML SQ SCH (09:00)
[2020-12-25] MEDS: LOSARTAN 50 MG TAB PO SCH (09:24)
[2020-12-25] MEDS: FUROSEMIDE 20 MG TAB PO SCH (09:24)
[2020-12-25] MEDS: ATORVASTATIN 40 MG TAB PO SCH (09:24)
[2020-12-25] MEDS: ASPIRIN 81 MG PO SCH (09:24)
[2020-12-25] MEDS: METOPROLOL TARTRATE 25 MG TAB PO SCH (09:24)
[2020-12-25] MEDS: INSULIN ASPART (NovoLOG) 100 UNIT/ML VIAL SQ SCH ×4 (09:25→20:52)
[2020-12-25] MEDS: COLLAGENASE 250 UNIT/GM OINTMENT 30 GM TUBE TOPICAL SCH ×2 (09:26→13:30)
[2020-12-25] MEDS: FENOFIBRATE 160 MG TAB PO SCH (09:26)
--- NOTE | 2020-12-25 09:59 | P.PN ---
Subjective Progress Note Date: 12/25/20 Patient seen and examined. No issues Objective - Vital Signs Vital signs: Vital Signs Temp 99.4 F 12/25/20 04:32 Pulse 73 12/25/20 04:32 Resp 16 12/25/20 04:32 BP 122/68 12/25/20 04:32 Pulse Ox 92 L 12/25/20 04:32 Intake & Output 12/24/20 12/25/20 12/25/20 18:59 06:59 18:59 Output Total 1075 600 Balance -1075 -600 Output: Urine 1075 600 Other: Voiding Method Urinal Urinal Urinal # Voids 0 - Exam Gen. a pleasant operative male in no acute distress sitting in his bed with family member at bedside. HEENT is normal cephalic, atraumatic, etc. he motion intact. Heart appears regular at this time. Lungs are clear bilaterally. Abdomen soft, nontender nondistended. Obese. Examination is show no clubbing, cyanosis or edema. Dressings in place clean and dry. Cranial nerves II through XII grossly intact. Normal mood and affect. - Labs CBC & Chem 7: 12/25/20 07:16 12/25/20 07:16 Labs: Abnormal Lab Results - Last 24 Hours (Table) 12/24/20 12/24/20 12/24/20 Range/Units 12:37 17:42 21:01 RBC (4.30-5.90) m/uL Hgb (13.0-17.5) gm/dL Hct (39.0-53.0) % MCV (80.0-100.0) fL RDW (11.5-15.5) % Carbon Dioxide (22-30) mmol/L BUN (9-20) mg/dL Creatinine (0.66-1.25) mg/dL Glucose (74-99) mg/dL POC Glucose (mg/dL) 155 H 151 H 200 H (75-99) mg/dL Calcium (8.4-10.2) mg/dL Alkaline Phosphatase (38-126) U/L Total Protein (6.3-8.2) g/dL Albumin (3.5-5.0) g/dL 12/25/20 12/25/20 12/25/20 Range/Units 07:06 07:16 07:16 RBC 2.80 L (4.30-5.90) m/uL Hgb 7.0 L (13.0-17.5) gm/dL Hct 21.8 L (39.0-53.0) % MCV 77.6 L (80.0-100.0) fL RDW 16.9 H (11.5-15.5) % Carbon Dioxide 31 H (22-30) mmol/L BUN 32 H (9-20) mg/dL Creatinine 1.46 H (0.66-1.25) mg/dL Glucose 201 H (74-99) mg/dL POC Glucose (mg/dL) 216 H (75-99) mg/dL Calcium 7.4 L (8.4-10.2) mg/dL Alkaline Phosphatase 172 H (38-126) U/L Total Protein 5.1 L (6.3-8.2) g/dL Albumin 2.1 L (3.5-5.0) g/dL Microbiology - Last 24 Hours (Table) 12/22/20 21:50 Urine Culture - Final Urine,Clean Catch Assessment and Plan Assessment: Bilateral lower extremity nonhealing wounds due to Charcot foot and diabetes Status post debridement of bilateral lower extremities Peripheral arterial disease Diabetes mellitus Neuropathy Ischemic cardiomyopathy Chronic anemia Chronic kidney disease Plan: Patient doing well overall without any issues. Would transfuse 1 unit PRBC in the preoperative time To improve hemodynamics. Plan for debridement and skin substitute placement tomorrow with Dr. Ross
[2020-12-25 11:46] LABS: Lymphocytes # (M) 0.92 k/uL (1.0-4.8); Monocytes # (M) 0.62 k/uL (0-1.0); Neutrophils # (M) 6.16 k/uL (1.3-7.7); Neutrophils % (M) 80 %; Nucleated Red Blood Cells 0 /100 WBC (0-0); Total Cells Counted 100
[2020-12-25 11:50] LABS: Glucose,Whole Blood 241 mg/dL (75-99)
--- NOTE | 2020-12-25 12:40 | PN ---
PROGRESS NOTE 65-year-old male with severe PAD, wound infection and gangrene to the feet encompassing about 40% of the feet posteriorly. Supposed to get debrided again in the next couple days prior to discharge. Temperature 99.4, pulse 73, respiratory, rate 16. Blood pressure 132/68, O2 92% on room air. PSYCH: Fair mood and affect. NEUROLOGIC: Alert and oriented x3. CARDIOVASCULAR S1, S2. GI soft. Dressings clean, dry from the toes wrapped up to the knees. Sugars mid 150s to 200s. Carbon dioxide is 31, creatinine is 1.46, BUN 32. ASSESSMENT: 1. Bilateral lower extremity nonhealing wounds due to Charcot foot, diabetes, status post debridement of bilateral lower extremities. 2. Peripheral arterial disease. 3. Diabetes mellitus. 4. Neuropathy. 5. Ischemic cardiomyopathy. 6. Chronic anemia. 7. Chronic kidney disease. They are going to give 1 unit of blood and a debridement tomorrow with Dr. Partida. Told him possibly he will be able to go home. He has had some bleeding from the rectum but GI has cleared him and did not want to do scopes on last admission. Please see further orders. MMODL / IJN: [id number] /
[2020-12-25] MEDS: SODIUM CHLORIDE 0.9% 1,000 ML IV SCH (16:02)
[2020-12-25 17:00] LABS: Glucose,Whole Blood 156 mg/dL (75-99)
[2020-12-25 18:11] LABS: Anisocytosis Slight; Basophils # (A) 0.1 k/uL (0-0.2); Basophils % (A) 1 %; Eosinophils # (A) 0.4 k/uL (0-0.7); Eosinophils % (A) 5 %; HCT 22.1 % (39.0-53.0); HGB 7.2 gm/dL (13.0-17.5); Hypochromasia Slight; Lymphocytes # (A) 1.5 k/uL (1.0-4.8); Lymphocytes % (A) 17 %; MCH 25.3 pg (25.0-35.0); MCHC 32.7 g/dL (31.0-37.0); MCV 77.3 fL (80.0-100.0); Mean Platelet Volume 8.3; Microcytosis Slight; Monocytes # (A) 0.7 k/uL (0-1.0); Monocytes % (A) 9 %; Neutrophils % (A) 69 %; Platelet Count 255 k/uL (150-450); RBC 2.86 m/uL (4.30-5.90); RDW 16.6 % (11.5-15.5); WBC 8.8 k/uL (3.8-10.6)
[2020-12-25 19:12] LABS: Poikilocytosis (M) Present; Polychromasia Present
--- NOTE | 2020-12-25 19:53 | PN ---
PROGRESS NOTE DATE OF SERVICE: 12/25/2020 REASON FOR FOLLOWUP: Bilateral diabetic foot ulceration and cellulitis. INTERVAL HISTORY: Patient is currently afebrile. The patient is breathing comfortably. The patient denies having any chest pain. No shortness of breath or cough. No abdominal pain or any worsening pain to the left foot wound area. PHYSICAL EXAMINATION: Blood pressure is 113/65, pulse of 71, temperature 98.3. He is 96% on room air. General description is a middle-aged male lying in bed in no distress. Respiratory system: Unlabored breathing, clear to auscultation anteriorly. Heart S1, S2. Regular rate and rhythm. Abdomen soft, no tenderness. Left foot is currently dressed up. He did have an ischemic 3rd toe. LABS: Hemoglobin is 7, white count 7.7, BUN of 32, creatinine 1.46. DIAGNOSTIC IMPRESSION AND PLAN: Patient with bilateral diabetic foot ulceration and cellulitis, left greater than right. This patient is status post debridement, now with evidence of ischemic 3rd toe. Scheduled for further debridement tomorrow. Last tune culture positive for multiple pathogen and the patient currently covered with Unasyn to continue and monitor clinical course closely. Continue supportive care. MMODL / IJN: [id number] /
[2020-12-25 20:03] LABS: Glucose,Whole Blood 143 mg/dL (75-99)
[2020-12-25] MEDS: INSULIN DETEMIR (LEVEMIR) 100 UNIT/ML SYR SQ SCH (20:52)
[2020-12-26] MEDS: AMPICILLIN-SULBACTAM 3 GM in SODIUM CHLORIDE 0.9% 100 ML IVPB SCH ×4 (02:42→19:31)
[2020-12-26] MEDS: LEVOTHYROXINE 50 MCG TAB PO SCH (02:43)
[2020-12-26] MEDS: LACTATED RINGERS 1,000 ML IV SCH (02:43)
[2020-12-26] MEDS: LEVOTHYROXINE 100 MCG TAB PO SCH (02:43)
[2020-12-26] MEDS ORDERED: HYDROmorphone 0.5 MG/0.5 ML SYRINGE IVP PRN (07:00)
[2020-12-26] MEDS ORDERED: DEXAMETHASONE SOD PHOSPHATE 4 MG/ML 1 ML VIAL IV ONE (07:00)
[2020-12-26] MEDS ORDERED: fentaNYL (PF) 50 MCG/ML 2 ML AMP IV PRN (07:00)
[2020-12-26] MEDS ORDERED: ONDANSETRON 4 MG/2 ML VIAL IVP ONE (07:00)
[2020-12-26] MEDS ORDERED: MIDAZOLAM 2 MG/2 ML VIAL IV PRN (07:00)
[2020-12-26 07:08] LABS: Glucose,Whole Blood 138 mg/dL (75-99)
[2020-12-26 08:51] LABS: Basophils # (A) 0.07 X 10*3/uL (0.00-0.10); Basophils % (A) 0.8 %; Eosinophils # (A) 0.36 X 10*3/uL (0.04-0.35); Eosinophils % (A) 4.3 %; HCT 25.2 % (39.6-50.0); HGB 7.8 g/dL (13.0-17.0); Lymphocytes # (A) 1.53 X 10*3/uL (0.90-5.00); Lymphocytes % (A) 18.3 %; MCH 25.2 pg (27.0-32.0); MCV 81.6 fL (80.0-97.0); Mean Platelet Volume 11.2 fL (9.5-12.2); Monocytes # (A) 0.78 X 10*3/uL (0.20-1.00); Monocytes % (A) 9.4 %; Neutrophils # (A) 5.56 X 10*3/uL (1.80-7.70); Neutrophils % (A) 66.7 %; Platelet Count 279 X 10*3/uL (140-440); RBC 3.09 X 10*6/uL (4.40-5.60); RDW 17.2 % (11.5-14.5); WBC 8.34 X 10*3/uL (4.50-10.00)
[2020-12-26] MEDS: ASPIRIN 81 MG PO SCH (08:59)
[2020-12-26] MEDS: ATORVASTATIN 40 MG TAB PO SCH (08:59)
[2020-12-26] MEDS: INSULIN ASPART (NovoLOG) 100 UNIT/ML VIAL SQ SCH ×4 (08:59→21:16)
[2020-12-26] MEDS: FUROSEMIDE 20 MG TAB PO SCH (08:59)
[2020-12-26] MEDS: FENOFIBRATE 160 MG TAB PO SCH (08:59)
[2020-12-26] MEDS: LOSARTAN 50 MG TAB PO SCH (09:02)
[2020-12-26] MEDS: METOPROLOL TARTRATE 25 MG TAB PO SCH (09:02)
[2020-12-26] MEDS: COLLAGENASE 250 UNIT/GM OINTMENT 30 GM TUBE TOPICAL SCH ×2 (09:37→09:38)
[2020-12-26 09:52] LABS: Erythrocyte Sedimentation Rate 106 mm/Hr (0-20); Protein, Total 5.3 g/dL (6.2-8.2)
[2020-12-26 10:03] LABS: % Iron Saturation 10.45 (15.00-50.00); African American GFR (CKD) 66.8 (60.0-200.0); Albumin 2.4 g/dL (3.80-4.90); Albumin/Globulin Ratio 0.83 (1.60-3.17); Anion Gap 3.7 mmol/L (4.00-12.00); BUN/Creat Ratio 23.08 Ratio (12.00-20.00); Calcium 7.3 mg/dL (8.7-10.3); Carbon Dioxide 32.3 mmol/L (21.6-31.8); Ferritin 792.9 ng/mL (22.0-322.0); Globulin 2.9 g/dL (1.6-3.3); Non-African American GFR(CKD) 57.7 (60.0-200.0); Total Bilirubin 0.4 mg/dL (0.3-1.2); Total Protein 5.3 g/dL (6.2-8.2)
[2020-12-26 11:52] LABS: Glucose,Whole Blood 122 mg/dL (75-99)
[2020-12-26 13:02] LABS: Free Kappa Lt Chain Qnt, Serum 7.07 mg/dL (0.33-1.94)
[2020-12-26] MEDS ORDERED: IV FLUID CONTINUATION 450 ML IV ONE (14:44)
[2020-12-26 15:13] LABS: Immunoglobulin M 58.6 mg/dL (40.0-280.0)
[2020-12-26] MEDS ORDERED: ePHEDrine SULFATE/0.9% NACL/PF 50 MG/5 ML SYRINGE IV ONE (16:10)
[2020-12-26] MEDS ORDERED: MIDAZOLAM 2 MG/2 ML VIAL ONE (16:10)
[2020-12-26] MEDS ORDERED: fentaNYL (PF) 50 MCG/ML 2 ML AMP ONE (16:10)
[2020-12-26] MEDS ORDERED: PROPOFOL 10 MG/ML 20 ML VIAL IV ONE (16:10)
[2020-12-26] MEDS ORDERED: LIDOCAINE 1% INJ 10MG/ML (20 ML MDV) ONE (16:10)
[2020-12-26] MEDS ORDERED: LACTATED RINGERS 1,000 ML IV ONE (17:04)
--- NOTE | 2020-12-26 18:18 | P.OP ---
Date of Procedure: 12/26/20 Preoperative Diagnosis: Nonhealing wound bilateral lower extremities appear left foot measuring 15 x 11 cm x 9 mm in depth on the plantar surface of the foot. 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 #2: Pulse lavage irrigation all wounds bilateral feet. #3: Application of Primatrix to left foot wound. #4: Application of wound VAC left foot wound. #5: Application Unna boot right lower extremity. Anesthesia: TIN Surgeon: Luis Hughes Estimated Blood Loss (ml): 5 IV fluids (ml): 500 Urine output (ml): 0 Pathology: none sent Condition: stable Disposition: no change Indications for Procedure: Patient is a 65-year-old male who had presented to the office with bilateral lower extremity wounds and extreme leg edema. The patient was treated with compression wraps all simultaneously being treated at the wound care center. His leg edema has improved and the patient was admitted for IV antibiotic therapy. Because of the necrotic tissue patient is offered excisional the Brightman and application of xenograft. The procedure, risk and benefits were discussed. Patient was to proceed. Description of Procedure: Patient brought the upper and placed in the supine position and administered general inhalational anesthesia delivered by the department anesthesiology. The bilateral lower extremities were sterilely prepped and draped in usual manner. The left foot wound was measured and found to be 15 cm x 11 cm x 9 mm. The wound edges were clean however after debridement utilizing a surgical scalpel was performed of all necrotic/nonviable tissue the patient's fifth metatarsal was exposed as were the tendons of the flexure sheath pulse lavage irrigation was performed followed by application of a Primatrix xenograft which was secured to the skin with 4-0 chromic sutures. This was followed by application of the sling gauze followed by application of a negative pressure wound VAC therapy. On the right similar debridement was performed and findings were encountered, with tendon and bone exposure.Primatrix was applied and secured with chromic suture to the plantar wound. The wound on the dorsum of the foot had good granular tissue with no tendon or bone exposed. This was treated also with application of Primatrix which was secured to the skin with chromic suture. Presently gauze was applied over the xenograft and the leg was wrapped with an Unna boot. Patient tolerated procedure well and taken to recovery in satisfactory and stable condition.
[2020-12-26 18:40] LABS: Glucose,Whole Blood 109 mg/dL (75-99)
[2020-12-26 20:54] LABS: Glucose,Whole Blood 137 mg/dL (75-99)
[2020-12-26] MEDS: INSULIN DETEMIR (LEVEMIR) 100 UNIT/ML SYR SQ SCH ×2 (21:15→21:28)
--- NOTE | 2020-12-26 21:18 | P.CONS ---
History of Present Illness - Reason for Consult Consult date: 12/25/20 Anemia Requesting physician: Johny Granado - History of Present Illness Mr. Sorenson is a 65-year-old male patient who was recently admitted with the same. He has known history of diabetes and non-healing wounds, bilateral lower extremities, and bilateral dorsal feet. Status post surgical debridements. Right foot is deep with visible muscle tissue. He has chronic anemia since 2019, worsening last few months. Therefore he was scheduled to be seen in office in January for first time consultation. He also appears to have chronic kidney disease with baseline creatinine between 1.5-2, unknown stage. We have been asked to further evaluate related to his chronic anemia. Review of Systems All systems: negative Constitutional: Reports as per HPI Past Medical History Past Medical History: Diabetes Mellitus, Heart Failure, Diabetes Mellitus, Eye Disorder, GERD/Reflux, Hearing Disorder / Deafness, Hyperlipidemia, Hypertension, Myocardial Infarction (LA), Osteoarthritis (OA), Renal Disease, Thyroid Disorder Additional Past Medical History / Comment(s): IDDM type II, neuropathy bilateral hands/forearms/lower legs/feet, RECENT ADMISSION FOR bilateral lower leg wou nds/C pt, bilateral leg edema, CURRENTLY LEFT LEG IS CLEAR, RT LEG STILL HAS SOME CELLULITIS WITH A DRESSING ON IT, ischemic cardiomyopathy/AICD, vtach, past medical record documents paroxysmal Afib/pt does not recall this, bilateral lower leg intermittent claudiaction/PAD, chronic renal disease stage III, anemia, bilateral tinnitis/[place], hypothyroid, arthritis bilateral hands with R hand worse, Last Myocardial Infarction Date:: 2006 History of Any Multi-Drug Resistant Organisms: None Reported Past Surgical History: Coronary Bypass/CABG, Heart Catheterization, Heart Catheterization With Stent, Pacemaker Additional Past Surgical History / Comment(s): PCI with stent 1998, 2006 CABG 3 vessel and AICD, DFTs, aortagram with runoff, colonoscopy, bilateral cataract removals/lens implants. Past Anesthesia/Blood Transfusion Reactions: No Reported Reaction Date of Last Stent Placement:: 1998 Type of Cardiac Device: Permanent Pacemaker Device Placement Date:: 2006 Past Psychological History: No Psychological Hx Reported Additional Psychological History / Comment(s): Pt resides with his spouse. He uses a cane or walker to ambulate. He drives. Smoking Status: Former smoker Past Alcohol Use History: None Reported Additional Past Alcohol Use History / Comment(s): STARTED SMOKING AT AGE 17 QUIT 2006 SMOKED 1 1/2 PPD Past Drug Use History: None Reported - Past Family History Sister(s) Additional Family Medical History / Comment(s): Pt has a sister with COPD, another sister with diabetes/copd/htn and another sister with diabetes. Father Family Medical History: Myocardial Infarction (LA) Additional Family Medical History / Comment(s): Father of a LA at the age of 75 yrs. Brother(s) Family Medical History: Coronary Artery Disease (CAD), CVA/TIA, Diabetes Mellitus, Myocardial Infarction (LA) Additional Family Medical History / Comment(s): One brother had a LA at 38yrs and at age 48yrs. Another brother is alive and had a stroke. Mother Family Medical History: Diabetes Mellitus, Renal Disease Additional Family Medical History / Comment(s): Mother at age 62 from renal failure Medications and Allergies Home Medications Medication Instructions Recorded Confirmed Type Fenofibrate 160 mg PO DAILY 03/31/14 12/22/20 History Insulin Lispro [humaLOG Kwikpen] See Protocol SQ ACHS PRN 03/31/14 12/22/20 History Losartan Potassium 50 mg PO DAILY 03/31/14 12/22/20 History Atorvastatin [Lipitor] 40 mg PO DAILY 05/24/20 12/22/20 History Levothyroxine Sodium [Synthroid] 50 mcg PO DAILY 05/24/20 12/22/20 History Levothyroxine Sodium [Synthroid] 200 mcg PO DAILY 05/24/20 12/22/20 History Metoprolol Tartrate 75 mg PO DAILY 05/24/20 12/22/20 History Dulaglutide [Trulicity] 3 mg SQ HENRY 11/30/20 12/22/20 History Furosemide [Lasix] 20 mg PO DAILY 11/30/20 12/22/20 History Insulin Glargine,Hum.rec.anlog 35 units SQ HS 11/30/20 12/22/20 History [Toujeo Solostar] Acetaminophen Tab [Tylenol] 1,000 mg PO Q6HR PRN 12/06/20 12/22/20 History Ampicillin-Sulbactam [Unasyn] 3 gm IVPB Q6HR vial 12/16/20 12/22/20 Rx Aspirin 81 mg PO DAILY 90 Days #90 chew 12/16/20 12/22/20 Rx Calcium Carbonate [Tums] 1,000 mg PO QID PRN 90 Days #90 12/16/20 12/22/20 Rx chew Collagenase [Santyl] 1 applic TOPICAL DAILY 12/22/20 12/22/20 History Allergies Allergy/AdvReac Type Severity Reaction Status Date / Time No Known Allergies Allergy Verified 12/22/20 16:27 Physical Exam Vitals: Vital Signs Temp Pulse Pulse Resp BP BP Pulse Ox 12/25/20 22:10 98.7 F 75 16 136/77 95 12/25/20 21:51 98.8 F 76 18 144/74 12/25/20 21:40 99 F 72 18 134/69 96 12/25/20 21:30 98.5 F 73 18 147/68 94 L 12/25/20 20:39 98.9 F 72 16 135/67 95 12/25/20 12:33 98.3 F 61 16 113/65 96 12/25/20 04:32 99.4 F 73 16 122/68 92 L Intake and Output 12/25/20 12/25/20 12/25/20 06:59 14:59 22:59 Intake Total 0 Output Total 600 Balance -600 0 Intake: Blood Product 0 Rc As-1 Unit 0 [id number] Output: Urine 600 Other: Voiding Method Urinal # Voids 2 - Constitutional General appearance: cooperative, no acute distress - EENT Eyes: EOMI, PERRLA ENT: NA/AT, normal oropharynx - Neck Neck: normal ROM - Respiratory Respiratory: bilateral: CTA - Cardiovascular Rhythm: regular Heart sounds: normal: S1, S2 - Gastrointestinal General gastrointestinal: soft - Integumentary Integumentary: pale - Neurologic Neurologic: CNII-XII intact - Musculoskeletal Musculoskeletal: generalized weakness - Psychiatric Psychiatric: A&O x's 3, appropriate affect, intact judgment & insight Results CBC & Chem 7: 12/26/20 06:23 12/26/20 06:23 Labs: Abnormal Lab Results - Last 24 Hours (Table) 12/25/20 12/25/20 12/25/20 Range/Units 07:06 07:16 07:16 RBC 2.80 L (4.30-5.90) m/uL Hgb 7.0 L (13.0-17.5) gm/dL Hct 21.8 L (39.0-53.0) % MCV 77.6 L (80.0-100.0) fL RDW 16.9 H (11.5-15.5) % Lymphocytes # (Manual) 0.92 L (1.0-4.8) k/uL Carbon Dioxide 31 H (22-30) mmol/L BUN 32 H (9-20) mg/dL Creatinine 1.46 H (0.66-1.25) mg/dL Glucose 201 H (74-99) mg/dL POC Glucose (mg/dL) 216 H (75-99) mg/dL Calcium 7.4 L (8.4-10.2) mg/dL Alkaline Phosphatase 172 H (38-126) U/L Total Protein 5.1 L (6.3-8.2) g/dL Albumin 2.1 L (3.5-5.0) g/dL Crossmatch 12/25/20 12/25/20 12/25/20 Range/Units 11:49 16:59 17:47 RBC 2.86 L (4.30-5.90) m/uL Hgb 7.2 L (13.0-17.5) gm/dL Hct 22.1 L (39.0-53.0) % MCV 77.3 L (80.0-100.0) fL RDW 16.6 H (11.5-15.5) % Lymphocytes # (Manual) (1.0-4.8) k/uL Carbon Dioxide (22-30) mmol/L BUN (9-20) mg/dL Creatinine (0.66-1.25) mg/dL Glucose (74-99) mg/dL POC Glucose (mg/dL) 241 H 156 H (75-99) mg/dL Calcium (8.4-10.2) mg/dL Alkaline Phosphatase (38-126) U/L Total Protein (6.3-8.2) g/dL Albumin (3.5-5.0) g/dL Crossmatch 12/25/20 12/25/20 Range/Units 17:47 20:02 RBC (4.30-5.90) m/uL Hgb (13.0-17.5) gm/dL Hct (39.0-53.0) % MCV (80.0-100.0) fL RDW (11.5-15.5) % Lymphocytes # (Manual) (1.0-4.8) k/uL Carbon Dioxide (22-30) mmol/L BUN (9-20) mg/dL Creatinine (0.66-1.25) mg/dL Glucose (74-99) mg/dL POC Glucose (mg/dL) 143 H (75-99) mg/dL Calcium (8.4-10.2) mg/dL Alkaline Phosphatase (38-126) U/L Total Protein (6.3-8.2) g/dL Albumin (3.5-5.0) g/dL Crossmatch See Detail Microbiology - Last 24 Hours (Table) 12/22/20 21:50 Urine Culture - Final Urine,Clean Catch Assessment and Plan (1) Microcytic anemia Current Visit: Yes Status: Acute Code(s): D50.9 - IRON DEFICIENCY ANEMIA, UNSPECIFIED SNOMED Code(s): 339694212 Plan: Assessment and Recommendations: Microcytic Anemia: - Likely secondary to chronic inflammation, worsened with persistent non- healing ulcers and component of CKD (unknown stage). - Full anemia work-up placed, replacement recs will be made when resulted. - Gi evaluation if not performed in past few years - Appears to be chronic since 2019, worsening past month. - Recent admission with Transfusion required Diabetes mellitus Non-healing bilateral pedal ulcers Chronic Kidney disease (unknown stage)
--- NOTE | 2020-12-26 23:46 | PN ---
PROGRESS NOTE DATE OF SERVICE: 12/26/2020 REASON FOR FOLLOW UP: Bilateral diabetic foot ulcer and cellulitis. INTERVAL HISTORY: Patient is currently afebrile. Patient is breathing comfortably. The patient denies having any chest pain. No shortness of breath or cough. No abdominal pain or any worsening pain to the lower extremity. PHYSICAL EXAMINATION: Blood pressure 132/60 with a pulse of 73, temperature of 96.8. He is 93% on room air. General description: The patient is a middle-aged male lying in bed in no distress. Respiratory system: Unlabored breathing, clear to auscultation anteriorly. Heart: S1, S2. Regular rate and rhythm. Abdomen soft, no tenderness. Bilateral feet currently dressed up, no obvious drainage on the dressing. LABS: Hemoglobin 7.3, white count 8.34, BUN of 30, creatinine 1.3. DIAGNOSTIC IMPRESSION AND PLAN: Patient with bilateral diabetic foot ulcer, left greater than the right. This patient is status post extensive debridement and deep cultures positive for multiple pathogens on the last admission. Patient covered with Unasyn to continue. Local wound care as ordered and monitor clinical course closely. Continue supportive care. MMODL / IJN: [id number] /
[2020-12-27] MEDS: SODIUM CHLORIDE 0.9% 1,000 ML IV SCH ×2 (00:05→17:49)
--- NOTE | 2020-12-27 00:46 | PN ---
PROGRESS NOTE 65-year-old white male who underwent debridement today after having a blood transfusion yesterday. His last hemoglobin 7.8. We are going to recheck in the morning. Possibly will need bilateral knee amputations. Will discuss with the family. Labs were reviewed. Sugars are mid 100s. Iron level is low at 21, TIBC is low at 201, ferritin high 792. ASSESSMENT: 1. Severe anemia. 2. Status post wound debridement. 3. Diabetes mellitus. 4. Diabetic wound infection. 5. Severe gangrene of the legs. He had sharp debridement of bilateral feet, pulse lavage and irrigation all wounds in the feet. PriMatrix to left foot wound. Wound VAC, left foot wound. Application Unna boot right lower extremities. Prognosis is very guarded. The wound is 15 x 11 x 9 cm on the left foot. MMODL / IJN: [id number] /
[2020-12-27] MEDS: AMPICILLIN-SULBACTAM 3 GM in SODIUM CHLORIDE 0.9% 100 ML IVPB SCH ×4 (02:47→19:55)
[2020-12-27] MEDS: LEVOTHYROXINE 100 MCG TAB PO SCH (05:43)
[2020-12-27] MEDS: LEVOTHYROXINE 50 MCG TAB PO SCH (05:43)
[2020-12-27 07:06] LABS: Glucose,Whole Blood 251 mg/dL (75-99)
[2020-12-27] MEDS: ATORVASTATIN 40 MG TAB PO SCH (08:07)
[2020-12-27] MEDS: FUROSEMIDE 20 MG TAB PO SCH (08:07)
[2020-12-27] MEDS: ASPIRIN 81 MG PO SCH (08:07)
[2020-12-27] MEDS: LOSARTAN 50 MG TAB PO SCH (08:07)
[2020-12-27] MEDS: FOLIC ACID 1 MG TAB PO SCH (08:07)
[2020-12-27] MEDS: METOPROLOL TARTRATE 25 MG TAB PO SCH (08:07)
[2020-12-27] MEDS: COLLAGENASE 250 UNIT/GM OINTMENT 30 GM TUBE TOPICAL SCH ×2 (08:08→13:16)
[2020-12-27] MEDS: INSULIN ASPART (NovoLOG) 100 UNIT/ML VIAL SQ SCH ×4 (08:08→21:23)
[2020-12-27] MEDS: FENOFIBRATE 160 MG TAB PO SCH (08:08)
--- NOTE | 2020-12-27 08:44 | P.PN ---
Subjective Progress Note Date: 12/27/20 Principal diagnosis: bilateral lower extremity foot wounds Patient seen and examined. Doing well since his surgery yesterday. He denies any fevers, chills, chest pain or shortness of breath. States his pain is controlled. Objective - Vital Signs Vital signs: Vital Signs Temp 98.9 F 12/27/20 05:00 Pulse 88 12/27/20 08:00 Resp 20 12/27/20 08:00 BP 134/64 12/27/20 05:00 Pulse Ox 94 L 12/27/20 05:00 Intake & Output 12/26/20 12/27/20 12/27/20 18:59 06:59 18:59 Intake Total 1000 400 Output Total 4 3 3 Balance 996 397 -3 Intake: IV 1000 Oral 400 Output: Stool 3 3 Estimated Blood Loss 4 Other: Voiding Method Urinal Urinal Urinal # Voids 1 - Exam Gen. well-nourished well-developed male no acute distress alert and oriented 3 HEENT- no scleral icterus, pupils equal round reactive, extraocular muscles intact Cardiovascular- regular rate Pulmonary- clear no retractions Extremities- right foot wound dressing intact with Jose wrap to the knee. Moderate edema noted. Minimal drainage. Left foot wound is dressed with a wound VAC. Wound VAC is intact without any leak. Minimal drainage noted within the canister. Moderate edema left lower extremity. - Labs CBC & Chem 7: 12/26/20 06:23 12/26/20 06:23 Labs: Abnormal Lab Results - Last 24 Hours (Table) 12/26/20 12/26/20 12/26/20 Range/Units 06:23 06:23 06:23 RBC 3.09 L (4.40-5.60) X 10*6/uL Hgb 7.8 L (13.0-17.0) g/dL Hct 25.2 L (39.6-50.0) % MCH 25.2 L (27.0-32.0) pg MCHC 31.0 L (32.0-37.0) g/dL RDW 17.2 H (11.5-14.5) % Eosinophils # 0.36 H (0.04-0.35) X 10*3/uL ESR 106 H (0-20) mm/Hr Carbon Dioxide 32.3 H (21.6-31.8) mmol/L Anion Gap 3.70 L (4.00-12.00) mmol/L BUN 30.0 H (9.0-27.0) mg/dL Est GFR (CKD-EPI)NonAf 57.7 L (60.0-200.0) BUN/Creatinine Ratio 23.08 H (12.00-20.00) Ratio Glucose 131 H (70-110) mg/dL POC Glucose (mg/dL) (75-99) mg/dL Calcium 7.3 L (8.7-10.3) mg/dL Iron 21 L (65-175) ug/dL TIBC 201 L (228-460) ug/dL % Saturation 10.45 L (15.00-50.00) Ferritin 792.9 H (22.0-322.0) ng/mL Alkaline Phosphatase 138 H (41-126) U/L Total Protein 5.3 L (6.2-8.2) g/dL Total Protein (PEP) 5.3 L (6.2-8.2) g/dL Albumin 2.40 L (3.80-4.90) g/dL Albumin/Globulin Ratio 0.83 L (1.60-3.17) g/dL IgA (60.0-350.0) mg/dL GEORGE Screen POSITIVE A (NEGATIVE) Free Reddick LC, Quant 7.07 H (0.33-1.94) mg/dL Free Lambda LC, Quant 8.05 H (0.57-2.63) mg/dL 12/26/20 12/26/20 12/26/20 Range/Units 06:23 11:51 18:37 RBC (4.40-5.60) X 10*6/uL Hgb (13.0-17.0) g/dL Hct (39.6-50.0) % MCH (27.0-32.0) pg MCHC (32.0-37.0) g/dL RDW (11.5-14.5) % Eosinophils # (0.04-0.35) X 10*3/uL ESR (0-20) mm/Hr Carbon Dioxide (21.6-31.8) mmol/L Anion Gap (4.00-12.00) mmol/L BUN (9.0-27.0) mg/dL Est GFR (CKD-EPI)NonAf (60.0-200.0) BUN/Creatinine Ratio (12.00-20.00) Ratio Glucose (70-110) mg/dL POC Glucose (mg/dL) 122 H 109 H (75-99) mg/dL Calcium (8.7-10.3) mg/dL Iron (65-175) ug/dL TIBC (228-460) ug/dL % Saturation (15.00-50.00) Ferritin (22.0-322.0) ng/mL Alkaline Phosphatase (41-126) U/L Total Protein (6.2-8.2) g/dL Total Protein (PEP) (6.2-8.2) g/dL Albumin (3.80-4.90) g/dL Albumin/Globulin Ratio (1.60-3.17) g/dL IgA 912.0 H (60.0-350.0) mg/dL GEORGE Screen (NEGATIVE) Free Reddick LC, Quant (0.33-1.94) mg/dL Free Lambda LC, Quant (0.57-2.63) mg/dL 12/26/20 12/27/20 Range/Units 20:41 07:02 RBC (4.40-5.60) X 10*6/uL Hgb (13.0-17.0) g/dL Hct (39.6-50.0) % MCH (27.0-32.0) pg MCHC (32.0-37.0) g/dL RDW (11.5-14.5) % Eosinophils # (0.04-0.35) X 10*3/uL ESR (0-20) mm/Hr Carbon Dioxide (21.6-31.8) mmol/L Anion Gap (4.00-12.00) mmol/L BUN (9.0-27.0) mg/dL Est GFR (CKD-EPI)NonAf (60.0-200.0) BUN/Creatinine Ratio (12.00-20.00) Ratio Glucose (70-110) mg/dL POC Glucose (mg/dL) 137 H 251 H (75-99) mg/dL Calcium (8.7-10.3) mg/dL Iron (65-175) ug/dL TIBC (228-460) ug/dL % Saturation (15.00-50.00) Ferritin (22.0-322.0) ng/mL Alkaline Phosphatase (41-126) U/L Total Protein (6.2-8.2) g/dL Total Protein (PEP) (6.2-8.2) g/dL Albumin (3.80-4.90) g/dL Albumin/Globulin Ratio (1.60-3.17) g/dL IgA (60.0-350.0) mg/dL GEORGE Screen (NEGATIVE) Free Reddick LC, Quant (0.33-1.94) mg/dL Free Lambda LC, Quant (0.57-2.63) mg/dL Assessment and Plan Assessment: Bilateral lower extremity nonhealing wounds due to Charcot foot and diabetes Status post debridement of bilateral lower extremities with left foot skin substitute and wound vac placement Peripheral arterial disease Diabetes mellitus Neuropathy Ischemic cardiomyopathy Chronic anemia Chronic kidney disease Plan: continue wound vac x 1 week. continue unna boot to the right lower extremity. If needed dressing can be changed if saturated. Do not change below adaptic dressing. Will need follow up in 1 week at wound care center. Ok for discharge from vascular standpoint.
[2020-12-27 12:13] LABS: Glucose,Whole Blood 248 mg/dL (75-99)
--- NOTE | 2020-12-27 13:00 | PN ---
PROGRESS NOTE A 65-year-old white male. Yesterday, he had wound debridement of his legs bilaterally. He is doing well since surgery yesterday. Hemoglobin is pending. Today, he denies any fever, chills, shortness of breath. Temperature 98.9, pulse 80 to 88, respiratory rate 18 to 20, blood pressure 130s over 60s, O2 of 94%. CARDIOVASCULAR: S1, S2. LUNGS: Clear. GI: Soft. His right foot wound dressing intact. Jose wrap to the knee. Moderate edema. Left foot is dressed with a wound VAC. Wound VAC is intact. Moderate edema left lower extremity. Hemoglobin 7.8, but is pending for today. ASSESSMENT: 1. Bilateral lower extremity nonhealing wounds due to Charcot foot, diabetes. 2. Debridement of bilateral lower legs with wound VAC to the left leg. 3. Peripheral arterial disease. 4. Diabetes mellitus. 5. Neuropathy. 6. Ischemic cardiomyopathy. 7. Anemia of chronic kidney disease. Wound VAC for a week. Unna boot to the right lower extremity. If needed, dressing can be changed if saturated. Do not change below adaptive dressing. Follow up in one week in the wound center. Possible discharge if hemoglobin is stable today. Await for hemoglobin. MMODL / IJN: [id number] /
[2020-12-27 13:31] LABS: Anisocytosis Slight; Basophils # (A) 0.1 k/uL (0-0.2); Basophils % (A) 1 %; Eosinophils # (A) 0.2 k/uL (0-0.7); Eosinophils % (A) 3 %; HCT 25.3 % (39.0-53.0); HGB 8.1 gm/dL (13.0-17.5); Hypochromasia Moderate; Lymphocytes % (A) 12 %; MCH 25.3 pg (25.0-35.0); MCHC 31.9 g/dL (31.0-37.0); MCV 79.2 fL (80.0-100.0); Mean Platelet Volume 8.1; Microcytosis Slight; Monocytes # (A) 0.7 k/uL (0-1.0); Monocytes % (A) 8 %; Neutrophils # (A) 6.6 k/uL (1.3-7.7); Neutrophils % (A) 75 %; Platelet Count 287 k/uL (150-450); RDW 16.7 % (11.5-15.5); WBC 8.8 k/uL (3.8-10.6)
[2020-12-27 13:46] LABS: Toxic Granulation Present
[2020-12-27 13:47] LABS: Poikilocytosis (M) Present; Rouleaux Present
--- NOTE | 2020-12-27 14:54 | P.PN ---
Subjective Progress Note Date: 12/27/20 Principal diagnosis: chronic Anemia Partial Anemia panel resulted. IgA increased 920, Awaiting immunofixation and electrophoresis for paraprotein identification. FLC ratio is stable. Hemoglobin 8.1 today. Objective - Vital Signs Vital signs: Vital Signs Temp 98.4 F 12/27/20 12:36 Pulse 67 12/27/20 12:36 Resp 18 12/27/20 12:36 BP 111/61 12/27/20 12:36 Pulse Ox 94 L 12/27/20 12:36 Intake & Output 12/26/20 12/27/20 12/27/20 18:59 06:59 18:59 Intake Total 1000 400 Output Total 4 3 3 Balance 996 397 -3 Intake: IV 1000 Oral 400 Output: Stool 3 3 Estimated Blood Loss 4 Other: Voiding Method Urinal Urinal Urinal # Voids 1 - Exam - Constitutional General appearance: cooperative, no acute distress - EENT Eyes: EOMI, PERRLA ENT: NA/AT, normal oropharynx - Neck Neck: normal ROM - Respiratory Respiratory: bilateral: CTA - Cardiovascular Rhythm: regular Heart sounds: normal: S1, S2 - Gastrointestinal General gastrointestinal: soft - Integumentary Integumentary: pale - Neurologic Neurologic: CNII-XII intact - Musculoskeletal Musculoskeletal: generalized weakness - Psychiatric Psychiatric: A&O x's 3, appropriate affect, intact judgment & insight - Labs CBC & Chem 7: 12/27/20 12:41 12/26/20 06:23 Labs: Abnormal Lab Results - Last 24 Hours (Table) 12/26/20 12/26/20 12/26/20 Range/Units 06:23 18:37 20:41 RBC (4.30-5.90) m/uL Hgb (13.0-17.5) gm/dL Hct (39.0-53.0) % MCV (80.0-100.0) fL RDW (11.5-15.5) % POC Glucose (mg/dL) 109 H 137 H (75-99) mg/dL IgA 912.0 H (60.0-350.0) mg/dL 12/27/20 12/27/20 12/27/20 Range/Units 07:02 11:56 12:41 RBC 3.20 L (4.30-5.90) m/uL Hgb 8.1 L (13.0-17.5) gm/dL Hct 25.3 L (39.0-53.0) % MCV 79.2 L (80.0-100.0) fL RDW 16.7 H (11.5-15.5) % POC Glucose (mg/dL) 251 H 248 H (75-99) mg/dL IgA (60.0-350.0) mg/dL Assessment and Plan (1) Microcytic anemia Current Visit: Yes Status: Acute Code(s): D50.9 - IRON DEFICIENCY ANEMIA, UNSPECIFIED SNOMED Code(s): 533996844 Plan: Assessment and Recommendations: Microcytic Anemia: - Likely secondary to chronic inflammation, worsened with persistent non- healing ulcers and component of CKD (unknown stage). - Full anemia work-up placed, replacement recs will be made when resulted. - Gi evaluation if not performed in past few years - Appears to be chronic since 2019, worsening past month. - Recent admission with Transfusion required Diabetes mellitus Non-healing bilateral pedal ulcers Chronic Kidney disease (unknown stage) Await completion of anemia panel IgA increased 920
[2020-12-27 17:23] LABS: Glucose,Whole Blood 206 mg/dL (75-99)
[2020-12-27] MEDS: LACTATED RINGERS 1,000 ML IV SCH (17:36)
[2020-12-27] MEDS: INSULIN DETEMIR (LEVEMIR) 100 UNIT/ML SYR SQ SCH (21:22)
[2020-12-27 21:36] LABS: Glucose,Whole Blood 196 mg/dL (75-99)
[2020-12-28] MEDS: AMPICILLIN-SULBACTAM 3 GM in SODIUM CHLORIDE 0.9% 100 ML IVPB SCH ×3 (01:50→14:28)
--- NOTE | 2020-12-28 02:25 | PN ---
PROGRESS NOTE DATE OF SERVICE: 12/27/2020 REASON FOR FOLLOWUP: Bilateral diabetic foot ulcer and cellulitis. INTERVAL HISTORY: Patient is currently afebrile. He is breathing comfortably. Patient denies any chest pain, shortness of breath or cough. No nausea, vomiting, abdominal pain or diarrhea. PHYSICAL EXAMINATION: Blood pressure 111/61 with a pulse of 67, temperature 98.4. He is 94% on room air. General description is a middle-aged male lying in bed in no distress. Respiratory system: Unlabored breathing, clear to auscultation anteriorly. Heart S1, S2. Regular rate and rhythm. Abdomen: Soft, no tenderness. LABS: Hemoglobin 11.3, white count 8.8. DIAGNOSTIC IMPRESSION AND PLAN: Patient with bilateral diabetic foot ulcer and cellulitis, left greater than the right in this patient who is status post debridement of the left foot wound and application of the wound VAC to continue local wound care. The patient to continue with Unasyn and monitor clinical course closely. MMODL / IJN: [id number] / SURINDER
[2020-12-28] MEDS: LEVOTHYROXINE 100 MCG TAB PO SCH (06:13)
[2020-12-28] MEDS: LEVOTHYROXINE 50 MCG TAB PO SCH (06:13)
[2020-12-28 07:25] LABS: Glucose,Whole Blood 71 mg/dL (75-99)
[2020-12-28] MEDS: LACTATED RINGERS 1,000 ML IV SCH (07:31)
[2020-12-28] MEDS: INSULIN ASPART (NovoLOG) 100 UNIT/ML VIAL SQ SCH ×2 (07:31→12:58)
[2020-12-28] MEDS: COLLAGENASE 250 UNIT/GM OINTMENT 30 GM TUBE TOPICAL SCH ×2 (07:33→09:43)
[2020-12-28 09:08] LABS: Basophils # (A) 0.06 X 10*3/uL (0.00-0.10); Basophils % (A) 0.7 %; Eosinophils # (A) 0.36 X 10*3/uL (0.04-0.35); Eosinophils % (A) 4.2 %; HCT 26.5 % (39.6-50.0); HGB 7.9 g/dL (13.0-17.0); Lymphocytes % (A) 17.3 %; MCH 24.7 pg (27.0-32.0); MCHC 29.8 g/dL (32.0-37.0); MCV 82.8 fL (80.0-97.0); Mean Platelet Volume 11.1 fL (9.5-12.2); Monocytes # (A) 0.93 X 10*3/uL (0.20-1.00); Monocytes % (A) 10.7 %; Neutrophils # (A) 5.79 X 10*3/uL (1.80-7.70); Neutrophils % (A) 66.8 %; Platelet Count 304 X 10*3/uL (140-440); RDW 17.5 % (11.5-14.5); WBC 8.67 X 10*3/uL (4.50-10.00)
[2020-12-28] MEDS: ASPIRIN 81 MG PO SCH (09:42)
[2020-12-28] MEDS: ATORVASTATIN 40 MG TAB PO SCH (09:42)
[2020-12-28] MEDS: METOPROLOL TARTRATE 25 MG TAB PO SCH (09:42)
[2020-12-28] MEDS: FOLIC ACID 1 MG TAB PO SCH (09:43)
[2020-12-28] MEDS: FENOFIBRATE 160 MG TAB PO SCH (09:43)
[2020-12-28] MEDS: FUROSEMIDE 20 MG TAB PO SCH (09:43)
[2020-12-28] MEDS: LOSARTAN 50 MG TAB PO SCH (09:43)
[2020-12-28 10:00] LABS: African American GFR (CKD) 66.8 (60.0-200.0); Albumin 2.5 g/dL (3.80-4.90); Albumin/Globulin Ratio 0.89 (1.60-3.17); Anion Gap 4.9 mmol/L (4.00-12.00); BUN/Creat Ratio 20.77 Ratio (12.00-20.00); Calcium 7.7 mg/dL (8.7-10.3); Carbon Dioxide 33.1 mmol/L (21.6-31.8); Globulin 2.8 g/dL (1.6-3.3); Non-African American GFR(CKD) 57.7 (60.0-200.0); Total Bilirubin 0.3 mg/dL (0.2-1.2); Total Protein 5.3 g/dL (6.2-8.2)
--- NOTE | 2020-12-28 11:19 | P.PN ---
Subjective Progress Note Date: 12/28/20 Principal diagnosis: nonhealing diabetic wounds She was seen and examined lying in bed. He is without any pain at this time. He is status post debridement of bilateral feet. Left lower extremity with application of primatrix. His had no acute changes through the night, no fevers or chills. He states he wants to be discharged today because he has to receive his second Covid vaccine. Objective - Vital Signs Vital signs: Vital Signs Temp 98.3 F 12/28/20 05:00 Pulse 76 12/28/20 05:00 Resp 20 12/28/20 05:00 BP 148/67 12/28/20 05:00 Pulse Ox 96 12/28/20 05:00 Intake & Output 12/27/20 12/28/20 12/28/20 18:59 06:59 18:59 Intake Total 160 400 Output Total 3 3 250 Balance 157 397 -250 Intake: Intake, IV Titration 160 Amount Lactated Ringers 1,000 ml 160 @ 20 mls/hr IV .Q24H VICK Rx#:[id number] Oral 400 Output: Urine 250 Stool 3 3 Other: Voiding Method Urinal Urinal # Voids 1 1 # Bowel Movements 1 - Exam General appearance: The patient is alert, oriented, in no acute distress. HET: Head is normocephalic and atraumatic. Neck: Supple without lymphadenopathy. Trachea midline. Extremities: Left lower extremity with wound VAC and dressing intact. Left lower extremity swelling. Right lower extremity with dressing clean dry and intact with decreased swelling. Neurological: No focal deficits. Alert and oriented 3. - Labs CBC & Chem 7: 12/28/20 06:21 12/28/20 06:21 Labs: Abnormal Lab Results - Last 24 Hours (Table) 12/27/20 12/27/20 12/27/20 Range/Units 11:56 12:41 17:15 RBC 3.20 L (4.30-5.90) m/uL Hgb 8.1 L (13.0-17.5) gm/dL Hct 25.3 L (39.0-53.0) % MCV 79.2 L (80.0-100.0) fL MCH (27.0-32.0) pg MCHC (32.0-37.0) g/dL RDW 16.7 H (11.5-15.5) % Eosinophils # (0.04-0.35) X 10*3/uL POC Glucose (mg/dL) 248 H 206 H (75-99) mg/dL 12/27/20 12/28/20 12/28/20 Range/Units 21:16 06:21 07:23 RBC 3.20 L (4.30-5.90) m/uL Hgb 7.9 L (13.0-17.5) gm/dL Hct 26.5 L (39.0-53.0) % MCV (80.0-100.0) fL MCH 24.7 L (27.0-32.0) pg MCHC 29.8 L (32.0-37.0) g/dL RDW 17.5 H (11.5-15.5) % Eosinophils # 0.36 H (0.04-0.35) X 10*3/uL POC Glucose (mg/dL) 196 H 71 L (75-99) mg/dL Assessment and Plan Assessment: 1. Bilateral extremity nonhealing wounds due to charcoal foot and diabetes 2. Status post debridement of bilateral extremities with left foot skin substitute and wound VAC placement 3. Peripheral arterial disease, 90% left below the knee popliteal artery stenosis, right SFA occlusive disease 60% stenosis 4. Diabetes mellitus 5. Neuropathy 6. Ischemic cardiomyopathy 7. History of intermittent claudication/peripheral arterial disease 8. Chronic anemia 9. Chronic kidney disease Plan: Continue wound VAC 1 week Continue Unna boot to the right lower extremity. If needed dressing can be changed to saturated. Do not change below Adaptic dressing. Follow-up in one week with wound care center Patient may be discharged home from vascular surgical standpoint Thank you for this consultation, we will sign off at this time The impression and plan of care has been dictated as directed. Dr. Armenta I performed a history and examination of this patient, discussed the same with the dictator. I agree with the dictator's note ,documented as a scribe. Any additional findings or plans will be noted.
[2020-12-28 12:54] LABS: Glucose,Whole Blood 84 mg/dL (75-99)
[2020-12-28 13:16] VITALS: BP 135/67; PULSE 64; RESP 16; TEMP 97.9
--- NOTE | 2020-12-28 13:35 | P.PN ---
Subjective Progress Note Date: 12/28/20 Principal diagnosis: chronic Anemia IgA markedly elevated, may be related to chronic kidney disease (nephropathy) versus MGUS/Multiple myeloma. patient is planning discharge today, therefore cresencio radhaee us in office within 2 weeks to monitor CBC and to obtain 24 hour urine SPEP and FLC 24 urine/ Objective - Vital Signs Vital signs: Vital Signs Temp 97.9 F 12/28/20 12:44 Pulse 64 12/28/20 12:44 Resp 16 12/28/20 12:44 BP 135/67 12/28/20 12:44 Pulse Ox 93 L 12/28/20 12:44 Intake & Output 12/27/20 12/28/20 12/28/20 18:59 06:59 18:59 Intake Total 160 400 Output Total 3 3 250 Balance 157 397 -250 Intake: Intake, IV Titration 160 Amount Lactated Ringers 1,000 ml 160 @ 20 mls/hr IV .Q24H VICK Rx#:[id number] Oral 400 Output: Urine 250 Stool 3 3 Other: Voiding Method Urinal Urinal Urinal # Voids 1 1 # Bowel Movements 1 - Exam - Constitutional General appearance: cooperative, no acute distress - EENT Eyes: EOMI, PERRLA ENT: NA/AT, normal oropharynx - Neck Neck: normal ROM - Respiratory Respiratory: bilateral: CTA - Cardiovascular Rhythm: regular Heart sounds: normal: S1, S2 - Gastrointestinal General gastrointestinal: soft - Integumentary Integumentary: pale - Neurologic Neurologic: CNII-XII intact - Musculoskeletal Musculoskeletal: generalized weakness - Psychiatric Psychiatric: A&O x's 3, appropriate affect, intact judgment & insight - Labs CBC & Chem 7: 12/28/20 06:21 12/28/20 06:21 Labs: Abnormal Lab Results - Last 24 Hours (Table) 12/27/20 12/27/20 12/27/20 Range/Units 12:41 17:15 21:16 RBC 3.20 L (4.30-5.90) m/uL Hgb 8.1 L (13.0-17.5) gm/dL Hct 25.3 L (39.0-53.0) % MCV 79.2 L (80.0-100.0) fL MCH (27.0-32.0) pg MCHC (32.0-37.0) g/dL RDW 16.7 H (11.5-15.5) % Eosinophils # (0.04-0.35) X 10*3/uL Carbon Dioxide (21.6-31.8) mmol/L Est GFR (CKD-EPI)NonAf (60.0-200.0) BUN/Creatinine Ratio (12.00-20.00) Ratio Glucose (70-110) mg/dL POC Glucose (mg/dL) 206 H 196 H (75-99) mg/dL Calcium (8.7-10.3) mg/dL Alkaline Phosphatase (41-126) U/L Total Protein (6.2-8.2) g/dL Albumin (3.80-4.90) g/dL Albumin/Globulin Ratio (1.60-3.17) g/dL 12/28/20 12/28/20 12/28/20 Range/Units 06:21 06:21 07:23 RBC 3.20 L (4.30-5.90) m/uL Hgb 7.9 L (13.0-17.5) gm/dL Hct 26.5 L (39.0-53.0) % MCV (80.0-100.0) fL MCH 24.7 L (27.0-32.0) pg MCHC 29.8 L (32.0-37.0) g/dL RDW 17.5 H (11.5-15.5) % Eosinophils # 0.36 H (0.04-0.35) X 10*3/uL Carbon Dioxide 33.1 H (21.6-31.8) mmol/L Est GFR (CKD-EPI)NonAf 57.7 L (60.0-200.0) BUN/Creatinine Ratio 20.77 H (12.00-20.00) Ratio Glucose 59 L (70-110) mg/dL POC Glucose (mg/dL) 71 L (75-99) mg/dL Calcium 7.7 L (8.7-10.3) mg/dL Alkaline Phosphatase 139 H (41-126) U/L Total Protein 5.3 L (6.2-8.2) g/dL Albumin 2.50 L (3.80-4.90) g/dL Albumin/Globulin Ratio 0.89 L (1.60-3.17) g/dL Assessment and Plan (1) Microcytic anemia Current Visit: Yes Status: Acute Code(s): D50.9 - IRON DEFICIENCY ANEMIA, UNSPECIFIED SNOMED Code(s): 218612309 Plan: Assessment and Recommendations: Microcytic Anemia: - Likely secondary to chronic inflammation, worsened with persistent non- healing ulcers and component of CKD (unknown stage). - Full anemia work-up placed, replacement recs will be made when resulted. - Gi evaluation if not performed in past few years - Appears to be chronic since 2019, worsening past month. - Recent admission with Transfusion required Diabetes mellitus Non-healing bilateral pedal ulcers Chronic Kidney disease (unknown stage) Await completion of anemia panel IgA increased 920 Electrophoresis and immunofixation still pending 24 hour urine as outpatient, script in discharge CBC check one week and follow-up in 2
[2020-12-28 13:40] LABS: Albumin 1.68 g/dL (3.80-4.90); Gamma Globulin 0.86 g/dL (0.70-1.50)
[2020-12-28 13:48] VITALS: BMI 33.4
--- NOTE | 2020-12-28 21:23 | P.PN ---
Progress Note - Text Progress Note Date: 12/28/20 REASON FOR FOLLOWUP: Bilateral diabetic foot ulcer and cellulitis. INTERVAL HISTORY: Patient is afebrile. The pt is breathing comfortably. Patient denies any chest pain, shortness of breath or cough. No nausea, vomiting, abdominal pain or diarrhea. PHYSICAL EXAMINATION: Blood pressure 110/60 with a pulse of 60, temperature 98.4. He is 94% on room air. General description is a middle-aged male lying in bed in no distress. Respiratory system: Unlabored breathing, clear to auscultation anteriorly. Heart S1, S2. Regular rate and rhythm. Abdomen: Soft, no tenderness. Bilateral Feet wounds , dressed no drainage LABS: Reviewed DIAGNOSTIC IMPRESSION AND PLAN: Patient with bilateral diabetic foot ulcer and cellulitis, left greater than the right in this patient who is status post debridement of the left foot wound and application of the wound VAC to continue local wound care. Plan is to continue with Unasyn 3gm q6hr x 3 weeks to finish his course of therapy.
[2020-12-29 22:44] LABS: LD Isoenzymes 1 18 % (19-38); LD Isoenzymes 2 36 % (30-43); LD Isoenzymes 3 24 % (16-26); LD Isoenzymes 4 10 % (3-12); LD Isoenzymes 5 12 % (3-14); Lactacte Dehydrogenase(LD) ISO 174 U/L (120-250)
--- NOTE | 2021-01-02 06:49 | CDI ---
Documentation Clarification Form Date: 01/02/21 From: Tyra Ahuja Phone: Admit Date: 12/22/2020 03:37:00 PM Patient Name: Cruz Sorenson V Visit Number: [id number] Discharge Date: 12/28/2020 03:25:00 PM ATTENTION: The Clinical Documentation Specialists (CDI) and [facility] Coding Staff appreciate your assistance in clarifying documentation. Please respond to the clarification below the line at the bottom and electronically sign. The CDI & [facility] Coding staff will review the response and follow-up if needed. Please note: Queries are made part of the Legal Health Record. If you have any questions, please contact the author of this message via ITS. Dr. Johny Granado, Osteomyelitis is documented procedure note. Additional clarification regarding the cause and acuity of the osteomyelitis is requested. History/Risk Factors: Type II diabetes: w foot ulcer, peripheral angiopathy w gangrene, cellulitis, neuropathy, Charcot's, CKD Clinical Indicators: Nonhealing wound bilateral lower extremities appear left foot measuring 15 x 11 cm x 9 mm in depth on the plantar surface of the foot.On the right foot entire wound measures 8.5 x 5.5 x 6 mm deep and a wound on the dorsal surface of the lower leg/foot area measuring 6.25 x 2.5 x 2 mm deep. Same plus clinical osteomyelitis with necrosis down to bone level bilateral feet Treatment: Excisional sharp debridement bilateral feet. Please clarify the acuity and etiology of the osteomyelitis, if known: Acuity: [ ] Acute osteomyelitis [ ] Chronic osteomyelitis [ ] Subacute osteomyelitis [ ] Unable to Determine MTDD
--- NOTE | 2021-01-02 06:58 | CDI ---
Documentation Clarification Form Date: 01/02/21 From: Tyra Ahuja Phone: Admit Date: 12/22/2020 03:37:00 PM Patient Name: Cruz Sorenson V Visit Number: [id number] Discharge Date: 12/28/2020 03:25:00 PM ATTENTION: The Clinical Documentation Specialists (CDI) and [facility] Coding Staff appreciate your assistance in clarifying documentation. Please respond to the clarification below the line at the bottom and electronically sign. The CDI & [facility] Coding staff will review the response and follow-up if needed. Please note: Queries are made part of the Legal Health Record. If you have any questions, please contact the author of this message via ITS. Dr. Luis Hughes, A debridement is documented procedure note. Additional clarification regarding the procedure is requested. History/Risk Factors: Type II diabetes: w foot ulcer, peripheral angiopathy w gangrene, cellulitis, neuropathy, Charcot's, CKD Clinical Indicators: Nonhealing wound bilateral lower extremities appear left foot measuring 15 x 11 cm x 9 mm in depth on the plantar surface of the foot. On the right foot entire wound measures 8.5 x 5.5 x 6 mm deep and a wound on the dorsal surface of the lower leg/foot area measuring 6.25 x 2.5 x 2 mm deep. Same plus clinical osteomyelitis with necrosis down to bone level bilateral feet Treatment: Excisional sharp debridement bilateral feet Please clarify the depth of the excisional debridement for both feet and location: Bones, Muscles Skin Subcutaneous tissue and fascia Other; please specify Unable to determine Five elements required for accurate and compliant documentation of a debridement: Technique used (e.g., excisional, excised, cutting, brushing, jet lavage etc.) Instrument(s) used (e.g., scalpel, curette, etc.) Nature of the tissue removed (e.g., necrotic, devitalized tissues, non-viable tissue, etc.) Appearance and size of the wound (e.g., down to fresh bleeding tissue, 7cm x 10cm, etc.) Depth of the debridement* (e.g., skin, subcutaneous tissue, fascia, muscle, bone, etc.) bone MTDD
[2021-01-02 10:56] LABS: ANA Pattern Speckled
--- NOTE | 2021-01-03 14:46 | CDI ---
Documentation Clarification Form Date: 01/02/2021 06:48:00 AM From: Tyra Ahuja Phone: Admit Date: 12/22/2020 03:37:00 PM Patient Name: Cruz Sorenson V Visit Number: [id number] Discharge Date: 12/28/2020 03:25:00 PM ATTENTION: The Clinical Documentation Specialists (CDI) and [facility] Coding Staff appreciate your assistance in clarifying documentation. Please respond to the clarification below the line at the bottom and electronically sign. The CDI & [facility] Coding staff will review the response and follow-up if needed. Please note: Queries are made part of the Legal Health Record. If you have any questions, please contact the author of this message via ITS. Dr. Johny Granado, Osteomyelitis is documented procedure note. Additional clarification regarding the cause and acuity of the osteomyelitis is requested. History/Risk Factors: Type II diabetes: w foot ulcer, peripheral angiopathy w gangrene, cellulitis, neuropathy, Charcot's, CKD Clinical Indicators: Nonhealing wound bilateral lower extremities appear left foot measuring 15 x 11 cm x 9 mm in depth on the plantar surface of the foot. On the right foot entire wound measures 8.5 x 5.5 x 6 mm deep and a wound on the dorsal surface of the lower leg/foot area measuring 6.25 x 2.5 x 2 mm deep. Same plus clinical osteomyelitis with necrosis down to bone level bilateral feet Treatment: Excisional sharp debridement bilateral feet. Please clarify the acuity and etiology of the osteomyelitis, if known: Acuity: [ ] Acute osteomyelitis [ ] Chronic osteomyelitis [ ] Subacute osteomyelitis [ ] Unable to Determine MTDD
--- NOTE | 2021-01-05 14:20 | CDI ---
Documentation Clarification Form Date: 01/02/2021 06:48:00 AM From: Tyra Ahuja Phone: Admit Date: 12/22/2020 03:37:00 PM Patient Name: Cruz Sorenson V Visit Number: [id number] Discharge Date: 12/28/2020 03:25:00 PM ATTENTION: The Clinical Documentation Specialists (CDI) and [facility] Coding Staff appreciate your assistance in clarifying documentation. Please respond to the clarification below the line at the bottom and electronically sign. The CDI & [facility] Coding staff will review the response and follow-up if needed. Please note: Queries are made part of the Legal Health Record. If you have any questions, please contact the author of this message via ITS. Dr. Johny Granado, Osteomyelitis is documented procedure note. Additional clarification regarding the cause and acuity of the osteomyelitis is requested. History/Risk Factors: Type II diabetes: w foot ulcer, peripheral angiopathy w gangrene, cellulitis, neuropathy, Charcot's, CKD Clinical Indicators: Nonhealing wound bilateral lower extremities appear left foot measuring 15 x 11 cm x 9 mm in depth on the plantar surface of the foot. On the right foot entire wound measures 8.5 x 5.5 x 6 mm deep and a wound on the dorsal surface of the lower leg/foot area measuring 6.25 x 2.5 x 2 mm deep. Same plus clinical osteomyelitis with necrosis down to bone level bilateral feet Treatment: Excisional sharp debridement bilateral feet. Please clarify the acuity and etiology of the osteomyelitis, if known: Acuity: [ ] Acute osteomyelitis [ ] Chronic osteomyelitis [ ] Subacute osteomyelitis [ ] Unable to Determine MTDD
--- NOTE | 2021-01-08 10:21 | PN ---
PROGRESS NOTE ADDENDUM: Chronic osteomyelitis. MMODL / IJN: [id number] /
--- NOTE | 2021-01-19 18:21 | DS ---
DISCHARGE SUMMARY DATE OF ADMISSION: 12/22/2020. DATE OF DISCHARGE: 12/28/2020. MEDICATIONS: 1. Losartan 50 mg daily. 2. Humalog Quick Pen use as directed. 3. Fenofibrate 160 mg daily. 4. Metoprolol tartrate 75 mg daily. 5. Levothyroxine 250 mcg daily. 6. Lipitor 40 mg daily. 7. Toujeo 35 units daily. 8. Trulicity 3 mg once a week. 9. Lasix 20 mg daily. 10.Acetaminophen 1000 mg every 6 hours p.r.n. 11.Aspirin 81 mg daily. 12.Calcium carbonate 1000 mg q.i.d. 13.Unasyn 3 grams IV piggyback q.6 hours for at least 14 days. Follow up with Dr. Bustamante in the Wound clinic for this. 14.Santyl topical daily to the wounds. Condition stable. Prognosis guarded. DISCHARGE DIAGNOSES: 1. Severe cellulitis, diabetic wound infection of the legs. 2. Severe necrotic tissue of the lower legs with visible muscle tissue. 3. Diastolic congestive heart failure with fluid overload. 4. Chronic renal disease. 5. Diabetes mellitus. 6. Hypothyroidism. 7. Insulin-dependent diabetes mellitus. 8. Microcytic anemia secondary to nonhealing ulcers requiring blood transfusion while inpatient. 9. Chronic obstructive pulmonary disease. PROGNOSIS: Extremely guarded. Patient was admitted for severe anemia requiring a unit of blood transfusion. He also had severe wound infections with severe swelling in his extremities for which treatment was given with IV antibiotics and wound care. He will follow up with Wound Clinic for 14 more days of antibiotics, vascular surgeon for possible amputations down the road. Risk factor modification including cholesterol, medication, blood pressure control, diastolic heart failure treatment. Hypertension medications. Discussed with the patient home nursing for wound care. Prognosis extremely guarded in this patient. MMODL / IJN: [id number] /
== END 2020-12-28 15:25 | disposition home health service (06) | DRG 628 ==
LOC: 5NMEDONC 15:37
PROVIDERS: ADMIT Family Medicine; ATTEND Family Medicine
PROC: 30243N1 Transfusion of Nonautologous Red Blood Cells into Central Vein, Percutaneous Approach (ICD-10-PCS; 2020-12-25)
PROC: 0HRNXK3 Replacement of Left Foot Skin with Nonautologous Tissue Substitute, Full Thickness, External Approach (ICD-10-PCS; principal; 2020-12-26 14:45)
PROC: 0QBP0ZZ Excision of Left Metatarsal, Open Approach (ICD-10-PCS; principal; 2020-12-26 14:45)
PROC: 0QBN0ZZ Excision of Right Metatarsal, Open Approach (ICD-10-PCS; principal; 2020-12-26 14:45)
PROC: 0HRKXK3 Replacement of Right Lower Leg Skin with Nonautologous Tissue Substitute, Full Thickness, External Approach (ICD-10-PCS; principal; 2020-12-26 14:45)
DX: E11.69 Type 2 diabetes mellitus with other specified complication (principal); I50.33 Acute on chronic diastolic (congestive) heart failure; M86.9 Osteomyelitis, unspecified; E11.52 Type 2 diabetes mellitus with diabetic peripheral angiopathy with gangrene; I13.0 Hypertensive heart and chronic kidney disease with heart failure and stage 1 through stage 4 chronic kidney disease, or unspecified chronic kidney disease; I70.269 Atherosclerosis of native arteries of extremities with gangrene, unspecified extremity; I47.2 Ventricular tachycardia; L97.414 Non-pressure chronic ulcer of right heel and midfoot with necrosis of bone; L97.424 Non-pressure chronic ulcer of left heel and midfoot with necrosis of bone; L03.116 Cellulitis of left lower limb; L03.115 Cellulitis of right lower limb; M86.672 Other chronic osteomyelitis, left ankle and foot; M86.671 Other chronic osteomyelitis, right ankle and foot; E11.621 Type 2 diabetes mellitus with foot ulcer; E11.610 Type 2 diabetes mellitus with diabetic neuropathic arthropathy; D63.1 Anemia in chronic kidney disease; E11.42 Type 2 diabetes mellitus with diabetic polyneuropathy; E11.22 Type 2 diabetes mellitus with diabetic chronic kidney disease; E11.628 Type 2 diabetes mellitus with other skin complications; N18.30 Chronic kidney disease, stage 3 unspecified; I48.0 Paroxysmal atrial fibrillation; Z79.4 Long term (current) use of insulin; Z20.822 Contact with and (suspected) exposure to COVID-19; B95.61 Methicillin susceptible Staphylococcus aureus infection as the cause of diseases classified elsewhere; B95.5 Unspecified streptococcus as the cause of diseases classified elsewhere; I25.5 Ischemic cardiomyopathy; E03.9 Hypothyroidism, unspecified; E78.5 Hyperlipidemia, unspecified; D50.9 Iron deficiency anemia, unspecified; K21.9 Gastro-esophageal reflux disease without esophagitis; I25.10 Atherosclerotic heart disease of native coronary artery without angina pectoris; I25.2 Old myocardial infarction; M19.042 Primary osteoarthritis, left hand; M19.041 Primary osteoarthritis, right hand; H91.90 Unspecified hearing loss, unspecified ear; E66.9 Obesity, unspecified; Z68.33 Body mass index [BMI] 33.0-33.9, adult; Z95.810 Presence of automatic (implantable) cardiac defibrillator; Z79.82 Long term (current) use of aspirin; Z79.890 Hormone replacement therapy; Z79.899 Other long term (current) drug therapy; Z98.42 Cataract extraction status, left eye; Z98.41 Cataract extraction status, right eye; Z96.1 Presence of intraocular lens; Z95.5 Presence of coronary angioplasty implant and graft; Z95.1 Presence of aortocoronary bypass graft; Z87.19 Personal history of other diseases of the digestive system; Z87.891 Personal history of nicotine dependence; Z71.3 Dietary counseling and surveillance; Z98.890 Other specified postprocedural states; Z83.3 Family history of diabetes mellitus; Z82.5 Family history of asthma and other chronic lower respiratory diseases; Z82.49 Family history of ischemic heart disease and other diseases of the circulatory system; Z82.3 Family history of stroke; Z84.1 Family history of disorders of kidney and ureter
CPT/HCPCS: 71045; 80053; 81001; 82607; 82668; 82728; 82746; 82784; 83540; 83550; 83625; 83880; 83883; 84165; 85025; 85652; 86038; 86039; 86334; 86431; 86850; 86900; 86901; 86920; 87086; 87635; 93005

== ENCOUNTER 2021-01-13 14:51 | Day surgery (SDC) | payer MEDICARE ==
[~2021-01-13 14:51] MED LIST changes: -LACTATED RINGERS 1,000 ML IV SCH; -LIDOCAINE 1% (10MG/ML) FOR IV START INTRADERMA PRN; +Pre Op ABX Message 1 EACH MISC MISCELLANE ONE; -SODIUM CHLORIDE 0.9% 1,000 ML IV SCH; -ceFAZolin 1 GM in SODIUM CHLORIDE 0.9% 250 ML IRRIGATION PRN
[2021-01-13 15:20] VITALS: TEMP 98.4
[2021-01-13] MEDS ORDERED: LACTATED RINGERS 1,000 ML IV ONE (15:23)
[2021-01-13 15:28] LABS: Glucose,Whole Blood 146 mg/dL (75-99)
[2021-01-13] MEDS ORDERED: fentaNYL (PF) 50 MCG/ML 2 ML AMP ONE (17:21)
[2021-01-13] MEDS ORDERED: MIDAZOLAM 2 MG/2 ML VIAL ONE (17:21)
[2021-01-13] MEDS ORDERED: ePHEDrine SULFATE/0.9% NACL/PF 50 MG/5 ML SYRINGE IV ONE (17:21)
[2021-01-13] MEDS ORDERED: PROPOFOL 10 MG/ML 20 ML VIAL IV ONE (17:21)
--- NOTE | 2021-01-13 18:29 | P.OP ---
Date of Procedure: 01/13/21 Preoperative Diagnosis: Bilateral foot wounds, stage IV. Status post bilateral foot wound debridement with application of Primatrix. Postoperative Diagnosis: Same. Wound left foot measuring 15 x 12 x 1 cm. Wound on the right foot measuring 9 cm x 5 cm x 1 cm. Procedure(s) Performed: #1: Debridement of bilateral foot wounds with sharp technique (knifeblade). #2: Application of negative pressure wound VAC therapy with durable medical equipment, greater than 50 cm bilaterally Anesthesia: MAC Surgeon: Luis Hughes Estimated Blood Loss (ml): 10 Urine output (ml): 0 Pathology: none sent Condition: stable Disposition: no change Indications for Procedure: Patient is a 65-year-old male with a history of diabetes mellitus who had presented with bilateral lower extremity foot wounds complicated by extreme fluid overload of the lower extremities. His wounds have been treated with wound debridement and application of Primatrix and negative pressure wound VAC therapy. His leg edema was treated with compression overall his wounds have improved however the wound on the right foot is in need of significant debridement with lesser debridement needed on the left foot. Description of Procedure: Patient brought the upper and placed in the supine position and administered general inhalational anesthesia delivered by the department anesthesiology. The patient's bilateral feet were sterilely prepped and draped in usual manner. The right foot wound measured 9 x 5 x 1 cm with the edges being clean and little evidence of undermining and no tunneling. Necrotic tissue including tendon and tendon sheath was encountered and this was sharply excised with a surgical scalpel blade down to the bone level. Granular tissue was noted throughout a significant portion of the wound bed. Once adequate debridement was achieved a black sponge wound VAC was then placed over the wound with good negative pressure result. Unfortunately most of the Primatrix previously placed did not adhere to the tissue. On the left foot a large portion of the Primatrix is intact. On a small degree of debridement of this wound was necessary. Again this was performed with a surgical scalpel down to the bone level. Negative pressure wound VAC therapy was applied with good result. Patient tolerated procedure well and was transferred to the recovery area satisfactory and stable condition.
[2021-01-13] MEDS ORDERED: ACETAMINOPHEN TAB 500 MG TAB PO PRN (18:30)
[2021-01-13] MEDS ORDERED: INSULIN LISPRO 100 UNIT/ML SQ PRN (18:30)
[2021-01-13] MEDS ORDERED: CALCIUM CARBONATE 500 MG CHEWABLE PO PRN (18:30)
[2021-01-13] MEDS ORDERED: LOSARTAN 50 MG TAB PO SCH (18:45)
[2021-01-13 18:54] LABS: Glucose,Whole Blood 130 mg/dL (75-99)
[2021-01-13 19:14] VITALS: BP 138/75; PULSE 72; RESP 16
[2021-01-13] MEDS ORDERED: NON FORMULARY DRUG (Insulin Glargine,Hum.Rec.Anlog [Toujeo Solostar] 300 UNIT/ML Insuln.Pe SQ SCH (21:00)
[2021-01-14] MEDS ORDERED: AMPICILLIN-SULBACTAM 3 GM VIAL IVPB SCH
[2021-01-14] MEDS ORDERED: METOPROLOL TARTRATE 25 MG TAB PO SCH (09:00)
[2021-01-14] MEDS ORDERED: FOLIC ACID 1 MG TAB PO SCH (09:00)
[2021-01-14] MEDS ORDERED: FUROSEMIDE 20 MG TAB PO SCH (09:00)
[2021-01-14] MEDS ORDERED: ATORVASTATIN 40 MG TAB PO SCH (09:00)
[2021-01-14] MEDS ORDERED: ASPIRIN 81 MG PO SCH (09:00)
[2021-01-14] MEDS ORDERED: NON FORMULARY DRUG (Levothyroxine Sodium [Synthroid] 200 MCG Tablet) PO SCH (09:00)
[2021-01-14] MEDS ORDERED: LEVOTHYROXINE 50 MCG TAB PO SCH (09:00)
[2021-01-14] MEDS ORDERED: FENOFIBRATE 160 MG TAB PO SCH (09:00)
[2021-01-15] MEDS ORDERED: DULAGLUTIDE 3 MG/0.5 ML SQ SCH (18:30)
== END 2021-01-13 19:40 | disposition home or self-care (01) ==
LOC: OR 14:51
PROVIDERS: ATTEND Surgery
DX: E11.621 Type 2 diabetes mellitus with foot ulcer (principal); E11.42 Type 2 diabetes mellitus with diabetic polyneuropathy; L97.521 Non-pressure chronic ulcer of other part of left foot limited to breakdown of skin; L97.519 Non-pressure chronic ulcer of other part of right foot with unspecified severity; E78.5 Hyperlipidemia, unspecified; I25.10 Atherosclerotic heart disease of native coronary artery without angina pectoris; Z79.4 Long term (current) use of insulin; Z79.890 Hormone replacement therapy; Z79.899 Other long term (current) drug therapy; Z95.5 Presence of coronary angioplasty implant and graft; Z95.810 Presence of automatic (implantable) cardiac defibrillator
CPT/HCPCS: 11043; 11046 ×11; 87635; J2250; J3010; J2704

== ENCOUNTER 2021-01-27 12:41 | Day surgery (SDC) | payer MEDICARE ==
[2021-01-27] MEDS ORDERED: INSULIN ASPART (NovoLOG) 100 UNIT/ML VIAL SQ ONE (13:50)
[2021-01-27 13:53] LABS: Glucose,Whole Blood 221 mg/dL (75-99)
[2021-01-27] MEDS ORDERED: LACTATED RINGERS 1,000 ML IV ONE (14:04)
[2021-01-27] MEDS ORDERED: CLINDAMYCIN 600 MG in DEXTROSE 5% IN WATER 50 ML IVPB STA ×2 (14:40)
[2021-01-27] MEDS ORDERED: PHENYLEPHRINE-0.9% NACL SYG 1,000 MCG/10 ML SYRINGE ONE (14:41)
[2021-01-27] MEDS ORDERED: PROPOFOL 10 MG/ML 20 ML VIAL IV ONE (14:41)
[2021-01-27] MEDS ORDERED: fentaNYL (PF) 50 MCG/ML 2 ML AMP ONE (14:41)
[2021-01-27] MEDS ORDERED: LIDOCAINE 1% INJ 10MG/ML (20 ML MDV) ONE (14:41)
[2021-01-27] MEDS ORDERED: MIDAZOLAM 2 MG/2 ML VIAL ONE (14:41)
[2021-01-27 16:05] LABS: Glucose,Whole Blood 176 mg/dL (75-99)
[2021-01-27 16:11] VITALS: TEMP 96.9
--- NOTE | 2021-01-27 16:13 | P.OP ---
Date of Procedure: 01/27/21 Preoperative Diagnosis: Nonhealing wounds plantar surface of both the left and right foot Postoperative Diagnosis: Same, plus non-viability of the left foot. Procedure(s) Performed: Debridement of bilateral foot wounds. Right foot wound measured 8 cm x 5 cm x 1 cm while the left foot wound measured 12 cm x 14 cm x 1.5 cm. Implants: None. Anesthesia: GETA Surgeon: Luis Hughes Estimated Blood Loss (ml): 5 Urine output (ml): 0 Pathology: none sent Condition: stable Disposition: no change Indications for Procedure: Patient is a 65-year-old male who has been treated for bilateral foot wounds on the plantar aspect over the past few months. His undergone multiple debridements in the past. The wounds of the right foot have been healing although they're currently is exposed tendon which is in need of debridement. On the left approximate 50% of the wound is healing well however there is exposed tendon and bone and it appears preoperatively that this will not recover and is anticipated the patient will need an a below the knee amputation however prior to making that decision debridement under anesthesia is thought to be appropriate. Description of Procedure: Patient brought the upper and placed in the supine position MrDeacon general inhalational anesthesia delivered by the department anesthesiology. Both feet/lower extremities were sterilely prepped and draped in usual manner. On the right the foot wound measures 8 x 5 x 1 cm. Excellent granulation tissue is noted throughout a proximally 90-95% on the wound although there are areas where tendon is exposed. Utilizing a surgical scalpel these exposed tendons were to prided to below the annular tissue level. Excellent bleeding characteristics were identified. Some bleeding was encountered and this was controlled with electrocautery. On the left the foot wound measures 12 cm x 14 cm x 1.5 cm. Exposed tendon and bone was identified near the metatarsophalangeal level. The tendons were debridable in the forefoot area revealing no viable tissue and no bleeding. The exposed tendons were debridable back as far as possible. Wound VAC was placed over each wound. Patient tolerated the procedure well and was taken the recovery area satisfactory and stable condition. I did discuss with the patient's sister the need for below the knee amputation. She had indicated that they had anticipated this outcome and were not surprised.
[2021-01-27 16:15] VITALS: RESP 16
[2021-01-27 16:56] VITALS: BP 118/70; PULSE 64
== END 2021-01-27 17:28 | disposition home or self-care (01) ==
LOC: OR 12:41
PROVIDERS: ATTEND Surgery
DX: E11.621 Type 2 diabetes mellitus with foot ulcer (principal); E11.52 Type 2 diabetes mellitus with diabetic peripheral angiopathy with gangrene; L97.429 Non-pressure chronic ulcer of left heel and midfoot with unspecified severity; L97.419 Non-pressure chronic ulcer of right heel and midfoot with unspecified severity; I96 Gangrene, not elsewhere classified; E11.42 Type 2 diabetes mellitus with diabetic polyneuropathy; I11.0 Hypertensive heart disease with heart failure; I50.9 Heart failure, unspecified; I48.0 Paroxysmal atrial fibrillation; K21.9 Gastro-esophageal reflux disease without esophagitis; E78.5 Hyperlipidemia, unspecified; I47.2 Ventricular tachycardia; N28.9 Disorder of kidney and ureter, unspecified; Z95.810 Presence of automatic (implantable) cardiac defibrillator; Z82.49 Family history of ischemic heart disease and other diseases of the circulatory system; Z83.3 Family history of diabetes mellitus; Z95.1 Presence of aortocoronary bypass graft; Z95.5 Presence of coronary angioplasty implant and graft; Z97.2 Presence of dental prosthetic device (complete) (partial); Z98.890 Other specified postprocedural states; Z79.890 Hormone replacement therapy; Z79.4 Long term (current) use of insulin; Z79.899 Other long term (current) drug therapy; Z91.041 Radiographic dye allergy status
CPT/HCPCS: 11043; 11046 ×10; J2250; J2001; J3010; J1642; J2370; J2704

== ENCOUNTER 2021-02-17 10:26 | Inpatient (IN) | payer MEDICARE ==
[2021-02-15 14:23] VITALS: BMI 32.5
[~2021-02-17 10:26] MED LIST changes: +HYDROmorphone 0.5 MG/0.5 ML SYRINGE IVP PRN; +MIDAZOLAM 2 MG/2 ML VIAL IV PRN; -Pre Op ABX Message 1 EACH MISC MISCELLANE ONE; +SCOPOLAMINE 1.5MG/72HR PATCH TRANSDERM ONE
[2021-02-17] MEDS: LACTATED RINGERS 1,000 ML IV SCH (11:01)
[2021-02-17 11:06] LABS: Glucose,Whole Blood 221 mg/dL (75-99)
--- NOTE | 2021-02-17 11:19 | P.HPIHPCON ---
History of Present Illness H&P Date: 02/17/21 The patient is a 65-year-old male with bilateral lower extremity wounds, type 2 diabetes, neuropathy, heart failure, hyperlipidemia, hypertension. These nonhealing wounds have come to a point where it is recommended he undergo amputation of his left lower extremity. He seemingly understands and is willing to proceed as such at this time he denies any fevers, chills, nausea, vomiting or issues otherwise. Consent for Procedure: I have explained the operation/procedure to the patient, including the risks, benefits, side effects, alternative therapies (including not receiving the proposed treatment or service), the likelihood of the patient achieving his/her goals, and potential recuperation problems for the procedure/sedation/analgesia, as well as any blood products, if indicated. I also explained to the patient the risks, benefits and side effects of the alternatives, as well as the risks related to not receiving the proposed procedure, care, treatment, or services. Past Medical History Past Medical History: Heart Failure, Diabetes Mellitus, Diabetes Mellitus, Eye Disorder, GERD/Reflux, Hearing Disorder / Deafness, Hyperlipidemia, Hypertension, Myocardial Infarction (IN), Osteoarthritis (OA), Renal Disease, Skin Disorder, Thyroid Disorder Additional Past Medical History / Comment(s): IDDM type II, neuropathy bilateral hands/forearms/lower legs/feet, WCC pt, bilateral leg edema, [place]. wounds feet- exposed bone left foot-both feet w/wound vacs, ischemic cardiomyopathy/AICD, vtach, past medical record documents paroxysmal Afib/pt does not recall this, bilateral lower leg intermittent claudication/PAD, chronic renal disease stage III, anemia-transfusion in December per pt., bilateral tinnitis/ASA'CARSARMIUT, hypothyroid Last Myocardial Infarction Date:: 2006 History of Any Multi-Drug Resistant Organisms: None Reported Past Surgical History: AICD, Coronary Bypass/CABG, Heart Catheterization, Heart Catheterization With Stent, Pacemaker Additional Past Surgical History / Comment(s): PCI with one stent 2006 CABG 3 vessel and AICD, DFTs, aortagram with runoff, colonoscopy, bilateral cataract removals/lens implants, multiple debridements of wounds Past Anesthesia/Blood Transfusion Reactions: No Reported Reaction Date of Last Stent Placement:: 1998 Type of Cardiac Device: Permanent Pacemaker, AICD Device Placement Date:: 2006 Smoking Status: Former smoker - Past Family History Sister(s) Additional Family Medical History / Comment(s): Pt has a sister with COPD, another sister with diabetes/copd/htn and another sister with diabetes. Father Family Medical History: Myocardial Infarction (IN) Additional Family Medical History / Comment(s): Father of a IN at the age of 75 yrs. Brother(s) Family Medical History: Coronary Artery Disease (CAD), CVA/TIA, Diabetes Mellitus, Myocardial Infarction (IN) Additional Family Medical History / Comment(s): One brother had a IN at 38yrs and at age 48yrs. Another brother is alive and had a stroke. Mother Family Medical History: Diabetes Mellitus, Renal Disease Additional Family Medical History / Comment(s): Mother at age 62 from renal failure Medications and Allergies Home Medications Medication Instructions Recorded Confirmed Type Fenofibrate 160 mg PO DAILY 03/31/14 02/17/21 History Insulin Lispro [humaLOG Kwikpen] See Protocol SQ ACHS PRN 03/31/14 02/15/21 History Losartan Potassium 50 mg PO DAILY 03/31/14 02/15/21 History Atorvastatin [Lipitor] 40 mg PO DAILY 05/24/20 02/15/21 History Levothyroxine Sodium [Synthroid] 50 mcg PO DAILY 05/24/20 02/15/21 History Levothyroxine Sodium [Synthroid] 200 mcg PO DAILY 05/24/20 02/15/21 History Metoprolol Tartrate 75 mg PO DAILY 05/24/20 02/15/21 History Dulaglutide [Trulicity] 3 mg SQ HENRY 11/30/20 02/17/21 History Furosemide [Lasix] 40 mg PO DAILY 11/30/20 02/17/21 History Insulin Glargine,Hum.rec.anlog 35 units SQ HS 11/30/20 02/15/21 History [Toujeo Solostar] Acetaminophen Tab [Tylenol] 1,000 mg PO Q6HR PRN 12/06/20 02/15/21 History Aspirin 81 mg PO DAILY 90 Days #90 chew 12/16/20 02/15/21 Rx Calcium Carbonate [Tums] 1,000 mg PO QID PRN 90 Days #90 12/16/20 02/15/21 Rx chew Folic Acid 1 mg PO DAILY 90 Days #90 tab 12/27/20 02/17/21 Rx Allergies Allergy/AdvReac Type Severity Reaction Status Date / Time No Known Allergies Allergy Verified 02/17/21 10:59 Surgical - Exam Vital Signs Temp Pulse Resp BP Pulse Ox 98.1 F 91 18 87/56 100 02/17/21 10:48 02/17/21 10:48 02/17/21 10:48 02/17/21 10:48 02/17/21 10:48 Gen. a pleasant cooperative chronically ill-appearing male in no acute distress. HEENT is normal cephalic, atraumatic, excellent motion intact. Heart appears regular this time. Lungs are clear bilaterally. Abdomen is soft, nontender, obese, nondistended. Extremity show no clubbing, cyanosis or edema, he has bilateral foot wound vacs. Normal mood and affect. Cranial nerves II through XII grossly intact Results - Labs Abnormal Lab Results - Last 24 Hours (Table) 02/17/21 Range/Units 11:02 POC Glucose (mg/dL) 221 H (75-99) mg/dL Assessment and Plan Assessment: Bilateral foot wounds Type 2 diabetes Hypertension Hyperlipidemia Neuropathy Plan: The plan is to go forward today with a left lower extremity below-knee amputation. Continue local wound care of the right lower extremity. Risks and benefits were discussed with the patient who seemingly understands and is leading to proceed as such. Preoperative labs are pending. He did have cardiac clearance for this procedure.
[2021-02-17 11:28] LABS: Basophils # (A) 0.1 k/uL (0-0.2); Basophils % (A) 1 %; Eosinophils # (A) 0.3 k/uL (0-0.7); Eosinophils % (A) 3 %; HCT 32.2 % (39.0-53.0); HGB 10.4 gm/dL (13.0-17.5); Lymphocytes # (A) 1.4 k/uL (1.0-4.8); Lymphocytes % (A) 13 %; MCH 24.6 pg (25.0-35.0); MCHC 32.4 g/dL (31.0-37.0); Mean Platelet Volume 7.9; Microcytosis Slight; Monocytes % (A) 9 %; Neutrophils % (A) 73 %; Platelet Count 403 k/uL (150-450); RBC 4.25 m/uL (4.30-5.90); RDW 15.7 % (11.5-15.5); WBC 10.9 k/uL (3.8-10.6)
[2021-02-17 11:29] LABS: Calcium 8.5 mg/dL (8.4-10.2); Potassium 4.2 mmol/L (3.5-5.1)
[2021-02-17] MEDS: DEXAMETHASONE SOD PHOSPHATE 4 MG/ML 1 ML VIAL IV ONE ×2 (11:47→16:42)
[2021-02-17] MEDS: ONDANSETRON 4 MG/2 ML VIAL IVP ONE ×2 (11:47→16:42)
[2021-02-17 11:48] LABS: MCV 75.8 fL (80.0-100.0)
[2021-02-17] MEDS ORDERED: LIDOCAINE 1% INJ 10MG/ML (20 ML MDV) ONE (13:09)
[2021-02-17] MEDS ORDERED: PROPOFOL 10 MG/ML 20 ML VIAL IV ONE (13:09)
[2021-02-17] MEDS ORDERED: fentaNYL (PF) 50 MCG/ML 2 ML AMP ONE (13:09)
[2021-02-17] MEDS ORDERED: PHENYLEPHRINE-0.9% NACL SYG 1,000 MCG/10 ML SYRINGE ONE (13:09)
[2021-02-17] MEDS ORDERED: SUCCINYLCHOLINE CHLORIDE 100 MG/5 ML SYR IV ONE (13:09)
[2021-02-17] MEDS ORDERED: MIDAZOLAM 2 MG/2 ML VIAL ONE (13:09)
[2021-02-17] MEDS ORDERED: LACTATED RINGERS 1,000 ML IV ONE (14:42)
[2021-02-17 14:56] LABS: Glucose,Whole Blood 273 mg/dL (75-99)
--- NOTE | 2021-02-17 14:58 | P.OP ---
Date of Procedure: 02/17/21 Description of Procedure: PREOPERATIVE DIAGNOSIS: [Nonhealing left lower extremity wounds, diabetes]. POSTOPERATIVE DIAGNOSIS: [Same]. OPERATION: Left] below knee amputation. SURGEON: Denia Armenta DO . ANESTHESIA: [General endotracheal] ESTIMATED BLOOD LOSS: [50 mL] SPECIMENS REMOVED: [Left leg] COMPLICATIONS: [None immediately apparent] CONDITION: Stable to recovery FINDINGS AND INDICATIONS: [The patient is a 65-year-old male with nonhealing bilateral lower extremity wounds. He has undergone multiple attempts at wound healing and continues to have infected left lower extremity wounds with significant tissue loss. The plan today is for below-knee amputation. Risks and benefits were discussed, he seemingly understood and was willing to proceed as such.] PROCEDURE IN DETAIL: The patient was brought to the operating room, the operative leg was prepped and draped in the usual sterile manner. 10 cm below the tibial plateau was marked. The calf circumference was measured. Two thirds was utilized for the anterior incision, one third was utilized to create the flap. The incision was marked. The incision was deepened through the subcutaneous tissue and fascia to the level of the bone. The fascia was transected around the level of the incision. Anterior compartment muscles were divided and visualized to the tibial vessels which were suture ligated with 2-0 silk. Then the lateral compartment muscles were divided. Dissection was carried down to the level of the bone. The periosteal elevator was used and the tibia was freed from its periosteal tissues. The tibia was divided with an oscillating saw. The same was done of the fibula, approximately 1-1/2-2 cm more proximal to the tibia itself. The posterior flap was created with an amputation knife. Bleeding was controlled with suture ligation of the vessels. Electrocautery was also used for hemostasis. The specimen was removed. The wound was copiously irrigated. The tibia and fibula were smoothed with a rasp. 2-0 and 3-0 Vicryl was utilized to approximate the fascia. The skin was reapproximated with sharee. The incsion was cleansed and a dressing was placed. The patient was extubated and transferred to PACU in stable condition having tolerated the procedure well
[2021-02-17] MEDS ORDERED: HYDROcodone/APAP 5-325MG 1 EACH TAB PO PRN (15:01)
[2021-02-17] MEDS ORDERED: MORPHINE SULFATE 4 MG/ML SYRINGE IV PRN (15:01)
[2021-02-17] MEDS ORDERED: ONDANSETRON 4 MG/2 ML VIAL IVP PRN (15:01)
[2021-02-17] MEDS ORDERED: INSULIN ASPART (NovoLOG) 100 UNIT/ML VIAL SQ ONE (15:16)
[2021-02-17 16:38] LABS: Glucose,Whole Blood 302 mg/dL (75-99)
[2021-02-17] MEDS: SODIUM CHLORIDE 0.9% 1,000 ML IV SCH (16:42)
[2021-02-18] MEDS: HYDROcodone/APAP 5-325MG 1 EACH TAB PO PRN ×2 (02:17→14:59)
[2021-02-18] MEDS: SODIUM CHLORIDE 0.9% 1,000 ML IV SCH ×2 (02:19→12:21)
[2021-02-18] MEDS: LACTATED RINGERS 1,000 ML IV SCH (05:28)
[2021-02-18 07:12] LABS: Glucose,Whole Blood 181 mg/dL (75-99)
[2021-02-18] MEDS: INSULIN ASPART (NovoLOG) 100 UNIT/ML VIAL SQ SCH ×4 (07:45→22:20)
[2021-02-18] MEDS ORDERED: CALCIUM CARBONATE 500 MG CHEWABLE PO PRN (10:57)
[2021-02-18] MEDS ORDERED: ACETAMINOPHEN TAB 500 MG TAB PO PRN (10:57)
[2021-02-18 11:33] LABS: Glucose,Whole Blood 291 mg/dL (75-99)
--- NOTE | 2021-02-18 13:16 | P.PN ---
Subjective Progress Note Date: 02/18/21 Patient seen and examined. Overall doing well. No complaints. Pain is relatively well controlled. No chest pains or shortness of breath. Sitting in bed eating lunch, resting comfortably. HEENT is normocephalic. Heart is regular at this time. Lungs are clear. Abdomen is soft. Left lower extremity knee immobilizer and dressings clean, dry, intact. Right lower extremity wound VAC in place. Postoperative day #1 from left lower extremity below-knee amputation Right lower extremity wounds Diabetes Order place for rigid dressing and stump mobile architect, PTOT for evaluation and DC planning. Hopeful for discharge in next 24-48 hours Objective - Vital Signs Vital signs: Vital Signs Temp 98.2 F 02/18/21 07:45 Pulse 82 02/18/21 07:45 Resp 17 02/18/21 07:45 BP 113/58 02/18/21 07:45 Pulse Ox 94 L 02/18/21 07:45 Intake & Output 02/17/21 02/18/21 02/18/21 18:59 06:59 18:59 Intake Total 1500 Output Total 50 950 Balance 1450 -950 Weight 92.986 kg Intake: IV 1500 Output: Urine 950 Estimated Blood Loss 50 Other: Voiding Method Urinal # Voids 0 # Bowel Movements 0 - Labs CBC & Chem 7: 02/17/21 11:01 02/17/21 11:01 Labs: Abnormal Lab Results - Last 24 Hours (Table) 02/17/21 02/17/21 02/18/21 Range/Units 14:54 16:34 07:10 POC Glucose (mg/dL) 273 H 302 H 181 H (75-99) mg/dL 02/18/21 Range/Units 11:31 POC Glucose (mg/dL) 291 H (75-99) mg/dL
[2021-02-18 16:29] LABS: Glucose,Whole Blood 175 mg/dL (75-99)
[2021-02-18] MEDS ORDERED: INSULIN DETEMIR (LEVEMIR) 100 UNIT/ML SYR SQ SCH (21:00)
[2021-02-18 21:14] LABS: Glucose,Whole Blood 181 mg/dL (75-99)
[2021-02-19] MEDS: SODIUM CHLORIDE 0.9% 1,000 ML IV SCH ×3 (03:47→17:54)
[2021-02-19] MEDS: LEVOTHYROXINE 100 MCG TAB PO SCH (06:30)
[2021-02-19] MEDS: LEVOTHYROXINE 50 MCG TAB PO SCH (06:30)
[2021-02-19] MEDS ORDERED: DEXTROSE 50% SYRINGE 50 ML IVP ONE (06:41)
[2021-02-19] MEDS ORDERED: DEXTROSE 50% SYRINGE 50 ML IVP STA (06:43)
[2021-02-19 06:59] LABS: Glucose,Whole Blood 24 mg/dL (75-99)
[2021-02-19 07:11] LABS: Glucose,Whole Blood 52 mg/dL (75-99)
[2021-02-19] MEDS: LACTATED RINGERS 1,000 ML IV SCH (07:18)
[2021-02-19] MEDS: INSULIN ASPART (NovoLOG) 100 UNIT/ML VIAL SQ SCH ×4 (07:34→21:48)
[2021-02-19 07:38] LABS: Glucose,Whole Blood 99 mg/dL (75-99)
--- NOTE | 2021-02-19 08:10 | CONS ---
CONSULTATION A 65-year-old status post [id number] amputation of the left leg. History of heart failure, dyslipidemia, hypertension, diabetes mellitus, neuropathy, severe PAD. He is sitting comfortably with minimal pain except some phantom pain. History of heart failure, diabetes mellitus, eye disorder, GERD, hearing disorder, hypertension, myocardial infarction, osteoarthritis, renal disease, COPD, end-stage diastolic heart failure, hypothyroidism, bilateral leg wounds, AICD, cardiomyopathy, ischemic, hypothyroidism, chronic kidney disease, stage 3. PAST SURGICAL HISTORY: PCI, stent, CABG x3 vessels. FAMILY HISTORY: Sister with COPD. Father with OR. Brother with diabetes mellitus, CVA, coronary artery disease. Mother had renal disease, diabetes mellitus. REVIEW OF SYSTEMS: Fourteen-point review of systems negative except for mentioned in HPI. HOME MEDICATIONS: See list. PHYSICAL EXAMINATION: Vital signs temp 98.1, pulse 90s, respiratory 16 to 18, blood pressure is 87/56, O2 saturation 100%. Cardiovascular S1, S2. Lungs transmitted upper airway sounds, scattered rhonchi and wheeze. Hematology negative Homans. Psych fair mood and affect. NEUROLOGIC: Alert and oriented x3. His left leg is BKA. ASSESSMENT: 1. Bilateral knee amputation, left leg amputation below-knee. 2. Diabetes mellitus. 3. Chronic obstructive pulmonary disease. 4. Diastolic heart failure. 5. Diabetic wound infection. 6. Cellulitis of the legs. PROGNOSIS: Extremely guarded. Follow up in the next 24 to 48 hours. Possible discharge home once PT OT and possibly fpc placement for physical therapy and wound care. Continue home medications. Prognosis guarded. MMODL / IJN: [id number] /
[2021-02-19] MEDS: ATORVASTATIN 40 MG TAB PO SCH (08:53)
[2021-02-19] MEDS: FOLIC ACID 1 MG TAB PO SCH (08:53)
[2021-02-19] MEDS: ASPIRIN 81 MG PO SCH (08:53)
[2021-02-19] MEDS: LOSARTAN 50 MG TAB PO SCH (08:54)
[2021-02-19] MEDS: FENOFIBRATE 160 MG TAB PO SCH (08:54)
[2021-02-19] MEDS: FUROSEMIDE 40 MG TAB PO SCH (08:54)
[2021-02-19] MEDS ORDERED: METOPROLOL TARTRATE 25 MG TAB PO SCH (09:00)
[2021-02-19] MEDS ORDERED: DULAGLUTIDE 3 MG/0.5 ML SQ SCH (09:00)
[2021-02-19 09:58] LABS: Basophils # (A) 0.04 X 10*3/uL (0.00-0.10); Basophils % (A) 0.3 %; Eosinophils # (A) 0.19 X 10*3/uL (0.04-0.35); Eosinophils % (A) 1.6 %; HCT 26.2 % (39.6-50.0); Lymphocytes # (A) 1.94 X 10*3/uL (0.90-5.00); Lymphocytes % (A) 16.1 %; MCH 24.1 pg (27.0-32.0); MCHC 30.5 g/dL (32.0-37.0); MCV 78.9 fL (80.0-97.0); Mean Platelet Volume 10.6 fL (9.5-12.2); Monocytes # (A) 1.25 X 10*3/uL (0.20-1.00); Monocytes % (A) 10.4 %; Neutrophils # (A) 8.56 X 10*3/uL (1.80-7.70); Neutrophils % (A) 71.1 %; Platelet Count 406 X 10*3/uL (140-440); RBC 3.32 X 10*6/uL (4.40-5.60); RDW 16.9 % (11.5-14.5); WBC 12.04 X 10*3/uL (4.50-10.00)
[2021-02-19 10:15] LABS: ALT <8 U/L (10-49); AST 20 U/L (14-35); African American GFR (CKD) 81.8 (60.0-200.0); Albumin/Globulin Ratio 0.86 (1.60-3.17); Alkaline Phosphatase 105 U/L (41-126); Calcium 7.7 mg/dL (8.7-10.3); Carbon Dioxide 29.3 mmol/L (21.6-31.8); Chloride 107 mmol/L (96-109); Globulin 2.8 g/dL (1.6-3.3); Glucose 19 mg/dL (70-110); Potassium 3.9 mmol/L (3.5-5.5); Sodium 142 mmol/L (135-145); Total Bilirubin 0.1 mg/dL (0.2-1.2); Total Protein 5.2 g/dL (6.2-8.2)
[2021-02-19 10:23] LABS: Non-African American GFR(CKD) 70.6 (60.0-200.0)
[2021-02-19 11:30] LABS: Glucose,Whole Blood 107 mg/dL (75-99)
[2021-02-19 16:32] LABS: Glucose,Whole Blood 145 mg/dL (75-99)
--- NOTE | 2021-02-19 17:05 | P.PN ---
Subjective Patient seen and examined. Overall doing well. No complaints. Sitting in bed eating lunch, resting comfortably. HEENT is normocephalic. Heart is regular at this time. Lungs are clear. Abdomen is soft. Left lower extremity dressing change. Stump and flap are clean and dry. No erythema or drainage Right lower extremity wound VAC in place. Right lower extremity with heel wound Postoperative day #2 from left lower extremity below-knee amputation Right lower extremity wounds Diabetes Still awaiting rigid dressing and stump aeroplane pilot. Physical therapy still to see the patient. Continue 3 times weekly right lower extremity dressing changes. Offloading right lower extremity heel Objective - Vital Signs Vital signs: Vital Signs Temp 98.5 F 02/19/21 13:55 Pulse 70 02/19/21 13:55 Resp 17 02/19/21 13:55 BP 119/63 02/19/21 13:55 Pulse Ox 98 02/19/21 13:55 Intake & Output 02/18/21 02/19/21 02/19/21 18:59 06:59 18:59 Intake Total 500 Balance 500 Intake: Intake, IV Titration 500 Amount Sodium Chloride 0.9% 1, 500 000 ml @ 100 mls/hr IV . Q10H [facility] Rx#:[id number] Other: Voiding Method Urinal Urinal # Voids 3 5 - Labs CBC & Chem 7: 02/19/21 05:46 02/19/21 05:46 Labs: Abnormal Lab Results - Last 24 Hours (Table) 02/18/21 02/19/21 02/19/21 Range/Units 21:10 05:46 05:46 WBC 12.04 H (4.50-10.00) X 10*3/uL RBC 3.32 L (4.40-5.60) X 10*6/uL Hgb 8.0 L (13.0-17.0) g/dL Hct 26.2 L (39.6-50.0) % MCV 78.9 L (80.0-97.0) fL MCH 24.1 L (27.0-32.0) pg MCHC 30.5 L (32.0-37.0) g/dL RDW 16.9 H (11.5-14.5) % Immature Gran # 0.06 H (0.00-0.04) X 10*3/uL Neutrophils # 8.56 H (1.80-7.70) X 10*3/uL Monocytes # 1.25 H (0.20-1.00) X 10*3/uL Glucose 19 L* (70-110) mg/dL POC Glucose (mg/dL) 181 H (75-99) mg/dL Calcium 7.7 L (8.7-10.3) mg/dL Total Bilirubin 0.1 L (0.2-1.2) mg/dL ALT <8 L (10-49) U/L Total Protein 5.2 L (6.2-8.2) g/dL Albumin 2.40 L (3.80-4.90) g/dL Albumin/Globulin Ratio 0.86 L (1.60-3.17) g/dL 02/19/21 02/19/21 02/19/21 Range/Units 06:40 07:10 11:29 WBC (4.50-10.00) X 10*3/uL RBC (4.40-5.60) X 10*6/uL Hgb (13.0-17.0) g/dL Hct (39.6-50.0) % MCV (80.0-97.0) fL MCH (27.0-32.0) pg MCHC (32.0-37.0) g/dL RDW (11.5-14.5) % Immature Gran # (0.00-0.04) X 10*3/uL Neutrophils # (1.80-7.70) X 10*3/uL Monocytes # (0.20-1.00) X 10*3/uL Glucose (70-110) mg/dL POC Glucose (mg/dL) 24 L 52 L 107 H (75-99) mg/dL Calcium (8.7-10.3) mg/dL Total Bilirubin (0.2-1.2) mg/dL ALT (10-49) U/L Total Protein (6.2-8.2) g/dL Albumin (3.80-4.90) g/dL Albumin/Globulin Ratio (1.60-3.17) g/dL 02/19/21 Range/Units 16:30 WBC (4.50-10.00) X 10*3/uL RBC (4.40-5.60) X 10*6/uL Hgb (13.0-17.0) g/dL Hct (39.6-50.0) % MCV (80.0-97.0) fL MCH (27.0-32.0) pg MCHC (32.0-37.0) g/dL RDW (11.5-14.5) % Immature Gran # (0.00-0.04) X 10*3/uL Neutrophils # (1.80-7.70) X 10*3/uL Monocytes # (0.20-1.00) X 10*3/uL Glucose (70-110) mg/dL POC Glucose (mg/dL) 145 H (75-99) mg/dL Calcium (8.7-10.3) mg/dL Total Bilirubin (0.2-1.2) mg/dL ALT (10-49) U/L Total Protein (6.2-8.2) g/dL Albumin (3.80-4.90) g/dL Albumin/Globulin Ratio (1.60-3.17) g/dL
--- NOTE | 2021-02-19 20:21 | P.PN ---
Progress Note - Text Progress Note Date: 02/19/21 presenting complaint: Left lower extremity wounds interval history: Patient presented with left lower extremity diabetic wounds. Has undergone left below-knee amputation. Today: Sitting up in bed. Eating his lunch. Has some post pain in the left leg. Has wounds in the right leg with dressing. No nausea vomiting. Review of systems: Was done for constitutional, cardiovascular, GI, pulmonary. relevant finding as above Active Medications Acetaminophen (Acetaminophen Tab 500 Mg Tab) 1,000 mg PO Q6HR PRN PRN Reason: Pain Hydrocodone Bitart/Acetaminophen (Hydrocodone/Apap 5-325mg 1 Each Tab) 1 each PO Q4HR PRN PRN Reason: Pain Scale 6 to 7 Last Admin: 02/18/21 14:59 Dose: 1 each Documented by: Hydrocodone Bitart/Acetaminophen (Hydrocodone/Apap 5-325mg 1 Each Tab) 2 each PO Q4HR PRN PRN Reason: Pain Scale 8 to 10 Last Admin: 02/18/21 22:21 Dose: 1 each Documented by: Aspirin (Aspirin 81 Mg) 81 mg PO DAILY [facility] Last Admin: 02/19/21 08:53 Dose: 81 mg Documented by: Atorvastatin Calcium (Atorvastatin 40 Mg Tab) 40 mg PO DAILY [facility] Last Admin: 02/19/21 08:53 Dose: 40 mg Documented by: Calcium Carbonate/Glycine (Calcium Carbonate 500 Mg Chewable) 1,000 mg PO QID PRN PRN Reason: Heartburn Fenofibrate (Fenofibrate 160 Mg Tab) 160 mg PO DAILY [facility] Last Admin: 02/19/21 08:54 Dose: 160 mg Documented by: Folic Acid (Folic Acid 1 Mg Tab) 1 mg PO DAILY [facility] Last Admin: 02/19/21 08:53 Dose: 1 mg Documented by: Furosemide (Furosemide 40 Mg Tab) 40 mg PO DAILY [facility] Last Admin: 02/19/21 08:54 Dose: 40 mg Documented by: Lactated Ringer's (Lactated Ringers) 1,000 mls @ 20 mls/hr IV .Q24H [facility] Last Admin: 02/19/21 07:18 Dose: 20 mls/hr Documented by: Sodium Chloride (Saline 0.9%) 1,000 mls @ 100 mls/hr IV .Q10H [facility] Last Admin: 02/19/21 17:54 Dose: Not Given Documented by: Insulin Aspart (Insulin Aspart (Novolog) 100 Unit/Ml Vial) [address] [facility]; Protocol Last Admin: 02/19/21 17:53 Dose: 1 unit Documented by: Levothyroxine Sodium (Levothyroxine 50 Mcg Tab) 50 mcg PO DAILY@0630 [facility] Last Admin: 02/19/21 06:30 Dose: 50 mcg Documented by: Levothyroxine Sodium (Levothyroxine 100 Mcg Tab) 200 mcg PO DAILY@30 [facility] Last Admin: 02/19/21 06:30 Dose: 200 mcg Documented by: Losartan Potassium (Losartan 50 Mg Tab) 50 mg PO DAILY [facility] Last Admin: 02/19/21 08:54 Dose: 50 mg Documented by: Metoprolol Tartrate (Metoprolol Tartrate 25 Mg Tab) 75 mg PO DAILY [facility] Last Admin: 02/19/21 08:53 Dose: 75 mg Documented by: Morphine Sulfate (Morphine Sulfate 4 Mg/Ml Syringe) 3 mg IV Q2HR PRN PRN Reason: Moderate Pain Non-Formulary Medication (Dulaglutide [Trulicity]) 3 mg SQ [facility] Last Admin: 02/19/21 08:56 Dose: Not Given Documented by: Ondansetron HCl (Ondansetron 4 Mg/2 Ml Vial) 4 mg IVP Q6HR PRN PRN Reason: Nausea And Vomiting On examination: VITAL SIGNS: [97.8, 70, 17, 119/63, 88% on room air] GENERAL APPEARANCE:sitting up in bed, eating. HEENT: Normal external appearance of nose and ear. Oral cavity normal EYES: Pupils equal. Conjunctiva normal. NECK: JVD not raised. Mass not palpable. RESPIRATORY: Respiratory effort normal. Lungs clear to auscultation. CARDIOVASCULAR: First and second sounds normal. No edema. ABDOMEN: Soft. Liver and spleen not palpable. No tenderness. No mass palpable. PSYCHIATRY: Alert and oriented x3. Mood and affect normal. EXTREMITIES: Left below-knee amputation with the leg brace, dressing over the right ankle INVESTIGATIONS, reviewed in the clinical context: WBC 12 hemoglobin 8 platelets 406 potassium 3.9 creatinine 1.1. Blood glucoses 19 Accu-Cheks: 24, 52, 19, 107, 145 Assessment and plan: -Left lower extremity wound diabetic nonhealing followed by left below-knee amputation Pain control and wound dressing as per vascular surgery -Diabetes mellitus type 2, on insulin. Uncontrolled with hypoglycemia hold off Levemir for now. Follow Accu-Cheks closely -GERD on Tums -Hyperlipidemia on fenofibrate, Lipitor -Essential hypertension Continue losartan. Change Lopressor to 25 mg twice a day. 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 Discussed with the patient. RICHARD Levemir.
[2021-02-19 21:14] LABS: Glucose,Whole Blood 74 mg/dL (75-99)
[2021-02-19] MEDS: HYDROcodone/APAP 5-325MG 1 EACH TAB PO PRN (21:47)
[2021-02-20 02:18] LABS: Glucose,Whole Blood 120 mg/dL (75-99)
[2021-02-20] MEDS: SODIUM CHLORIDE 0.9% 1,000 ML IV SCH ×3 (04:00→21:29)
[2021-02-20] MEDS: LACTATED RINGERS 1,000 ML IV SCH (05:54)
[2021-02-20] MEDS: LEVOTHYROXINE 50 MCG TAB PO SCH (06:16)
[2021-02-20] MEDS: LEVOTHYROXINE 100 MCG TAB PO SCH (06:16)
[2021-02-20 07:01] LABS: Glucose,Whole Blood 167 mg/dL (75-99)
[2021-02-20] MEDS: INSULIN ASPART (NovoLOG) 100 UNIT/ML VIAL SQ SCH ×4 (07:35→21:29)
[2021-02-20] MEDS: ASPIRIN 81 MG PO SCH (07:37)
[2021-02-20] MEDS: FUROSEMIDE 40 MG TAB PO SCH (07:37)
[2021-02-20] MEDS: FENOFIBRATE 160 MG TAB PO SCH (07:37)
[2021-02-20] MEDS: LOSARTAN 50 MG TAB PO SCH (07:37)
[2021-02-20] MEDS: FOLIC ACID 1 MG TAB PO SCH (07:37)
[2021-02-20] MEDS: ATORVASTATIN 40 MG TAB PO SCH (07:37)
[2021-02-20] MEDS: METOPROLOL TARTRATE 25 MG TAB PO SCH ×2 (07:38→21:30)
[2021-02-20] MEDS: HYDROcodone/APAP 5-325MG 1 EACH TAB PO PRN ×2 (07:45→21:29)
[2021-02-20 11:51] LABS: Glucose,Whole Blood 279 mg/dL (75-99)
--- NOTE | 2021-02-20 15:07 | P.PN ---
Subjective Progress Note Date: 02/20/21 Principal diagnosis: Left below the knee amputation She was seen and examined lying in bed. He is postop day #3 for left below the knee amputation. He states overall he is doing well, pain is manageable. He also has ulcer to the right lower extremity with a wound VAC dressing. He denies any fevers or chills. He is awaiting physical therapy for evaluation for discharge. Also awaiting prostatic company for stump itinerant teacher assistant and rigid dressing. Objective - Vital Signs Vital signs: Vital Signs Temp 98.1 F 02/20/21 07:31 Pulse 80 02/20/21 07:31 Resp 18 02/20/21 07:31 BP 125/63 02/20/21 07:31 Pulse Ox 94 L 02/20/21 07:31 Intake & Output 02/19/21 02/20/21 02/20/21 18:59 06:59 18:59 Intake Total 900 Balance 900 Intake: Intake, IV Titration 600 Amount Sodium Chloride 0.9% 1, 600 000 ml @ 100 mls/hr IV . Q10H [facility] Rx#:[id number] Oral 300 Other: Voiding Method Urinal # Voids 5 # Bowel Movements 1 - Exam General appearance: The patient is alert, oriented, in no acute distress. HET: Head is normocephalic and atraumatic. Pupils are equal and reactive. Oropharynx is clear without lesions. Neck: Supple without lymphadenopathy. Trachea midline. Heart: S1 S2. Regular rate and rhythm. Lungs: No crackles or wheezes are heard. Abdomen: Soft, nontender, nondistended with bowel sounds. No peritoneal signs. No palpable organomegaly or masses. Extremities: Left lower extremity with dressing clean dry and intact on stump. Right lower extremity with dressing clean dry and intact with a heel wound and wound VAC in place. Neurological: No focal deficits. Strength and sensation are grossly intact. - Labs CBC & Chem 7: 02/19/21 05:46 02/19/21 05:46 Labs: Abnormal Lab Results - Last 24 Hours (Table) 02/19/21 02/19/21 02/19/21 Range/Units 11:29 16:30 21:07 POC Glucose (mg/dL) 107 H 145 H 74 L (75-99) mg/dL 02/20/21 02/20/21 Range/Units 02:16 06:58 POC Glucose (mg/dL) 120 H 167 H (75-99) mg/dL Assessment and Plan Assessment: Postop day #3 left lower extremity below the knee amputation Right lower extremity wounds Diabetes Plan: Change wound VAC dressing every 3 days to right lower extremity Offload right lower extremity heel Order for stump itinerant teacher assistant and rigid dressing Physical therapy on consult Will plan for patient to be discharged home tomorrow to home with home care and physical therapy The impression and plan of care has been dictated as directed. Dr. Armenta I performed a history and examination of this patient, discussed the same with the dictator. I agree with the dictator's note ,documented as a scribe. Any additional findings or plans will be noted.
[2021-02-20 17:06] LABS: Glucose,Whole Blood 255 mg/dL (75-99)
[2021-02-20 20:45] LABS: Glucose,Whole Blood 306 mg/dL (75-99)
[2021-02-21 02:47] LABS: Glucose,Whole Blood 191 mg/dL (75-99)
--- NOTE | 2021-02-21 04:42 | PN ---
PROGRESS NOTE This 65-year-old white male status post left BKA. Home medicines for hypertension and thyroid have been ordered. He has some minimal pain due to a phantom pain. Cardiovascular: S1, S2. Lungs clear. GI soft. Hematology: Negative Homans. Musculoskeletal shows left BKA. Sugars in the 200s to 300 range. ASSESSMENT: 1. Insulin-dependent diabetes mellitus. 2. Peripheral arterial disease. 3. Diabetic wound infection of the right foot. 4. Below knee amputation of the left foot. PROGNOSIS: Extremely guarded. We will set up PT, OT, and possible discharge home soon. MMODL / IJN: [id number] /
[2021-02-21] MEDS: LACTATED RINGERS 1,000 ML IV SCH (05:26)
[2021-02-21] MEDS: LEVOTHYROXINE 100 MCG TAB PO SCH (06:06)
[2021-02-21] MEDS: LEVOTHYROXINE 50 MCG TAB PO SCH (06:06)
[2021-02-21 07:04] LABS: Glucose,Whole Blood 232 mg/dL (75-99)
[2021-02-21] MEDS: ATORVASTATIN 40 MG TAB PO SCH (07:12)
[2021-02-21] MEDS: METOPROLOL TARTRATE 25 MG TAB PO SCH ×2 (07:12→23:07)
[2021-02-21] MEDS: FUROSEMIDE 40 MG TAB PO SCH (07:12)
[2021-02-21] MEDS: INSULIN ASPART (NovoLOG) 100 UNIT/ML VIAL SQ SCH ×4 (07:12→23:08)
[2021-02-21] MEDS: FOLIC ACID 1 MG TAB PO SCH (07:13)
[2021-02-21] MEDS: FENOFIBRATE 160 MG TAB PO SCH (07:13)
[2021-02-21] MEDS: ASPIRIN 81 MG PO SCH (07:13)
[2021-02-21] MEDS: LOSARTAN 50 MG TAB PO SCH (07:13)
--- NOTE | 2021-02-21 08:20 | P.DS ---
Providers Date of admission: 02/17/21 10:26 Expected date of discharge: 02/21/21 Attending physician: Denia Armenta DO Consults: 02/17/21 14:59 Consult Physician Routine Consulting Provider: Johny Granado Reason/Comments: post bka, med mgmnt Do you want consulting provider notified?: Yes [facility] Course: A pleasant 65-year-old male with bilateral lower extremity wounds type 2 diabetes neuropathy, heart failure, hyperlipidemia, and hypertension. He had nonhealing wounds that have come to a point where he was recommended to undergo amputation of his left lower extremity. He underwent a left below the knee amputation on 02/17/2021. Physical therapy evaluated the patient yesterday and deemed the patient is safe to go home with in-home rehab. The patient was agreeable to this plan. He will be discharged home with a wound VAC to the right lower extremity. He has tolerated the procedure well, she has had no fevers or chills. Pain has been well controlled. Assessment: The patient is seen and examined. 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 He denies any acute changes through the night. His been tolerating his diet. He's been afebrile, states his pain is controlled. Plan is for discharge home today with home care/physical therapy. Exam: General appearance: The patient is alert, oriented, in no acute distress. HET: Head is normocephalic and atraumatic. Pupils are equal and reactive. Oropharynx is clear without lesions. Neck: Supple without lymphadenopathy. Trachea midline. Heart: S1 S2. Regular rate and rhythm. Lungs: No crackles or wheezes are heard. Abdomen: Soft, nontender, nondistended with bowel sounds. No peritoneal signs. No palpable organomegaly or masses. Extremities: Left lower extremity with dressing clean dry and intact on stump. Right lower extremity with dressing clean dry and intact with a heel wound and wound VAC in place. Neurological: No focal deficits. Strength and sensation are grossly intact. Assessment: Postop day #4 left lower extremity below the knee amputation Right lower extremity wounds Diabetes Plan: Wound VAC to be changed every 3 days to right lower extremity Offload right lower extremity heel Stump rail detector car operator and rigid dressing to left BKA stump Physical therapy on consult The impression and plan of care has been dictated as directed. Dr. Armenta I performed a history and examination of this patient, discussed the same with the dictator. I agree with the dictator's note ,documented as a scribe. Any additional findings or plans will be noted. Procedures: Left lower extremity [id number] amputation Patient Condition at Discharge: Good Plan - Discharge Summary Discharge Rx Participant: Yes New Discharge Prescriptions: New HYDROcodone/APAP 5-325MG [[place] 5-325] 1 each PO Q4HR PRN 3 Days #18 tab PRN Reason: Pain Scale 6 To 7 Continue Losartan Potassium 50 mg PO DAILY Insulin Lispro [humaLOG Kwikpen] See Protocol SQ ACHS PRN PRN Reason: BS >300 Fenofibrate 160 mg PO DAILY Metoprolol Tartrate 75 mg PO DAILY Levothyroxine Sodium [Synthroid] 50 mcg PO DAILY Levothyroxine Sodium [Synthroid] 200 mcg PO DAILY Atorvastatin [Lipitor] 40 mg PO DAILY Insulin Glargine,Hum.rec.anlog [Toujeo Solostar] 35 units SQ HS Furosemide [Lasix] 40 mg PO DAILY Dulaglutide [Trulicity] 3 mg SQ HENRY Acetaminophen Tab [Tylenol] 1,000 mg PO Q6HR PRN PRN Reason: Pain Aspirin 81 mg PO DAILY 90 Days #90 chew Calcium Carbonate [Tums] 1,000 mg PO QID PRN 90 Days #90 chew PRN Reason: Heartburn Folic Acid 1 mg PO DAILY 90 Days #90 tab Discharge Medication List Fenofibrate 160 mg PO DAILY 03/31/14 [History] Insulin Lispro [humaLOG Kwikpen] See Protocol SQ ACHS PRN 03/31/14 [History] Losartan Potassium 50 mg PO DAILY 03/31/14 [History] Atorvastatin [Lipitor] 40 mg PO DAILY 05/24/20 [History] Levothyroxine Sodium [Synthroid] 50 mcg PO DAILY 05/24/20 [History] Levothyroxine Sodium [Synthroid] 200 mcg PO DAILY 05/24/20 [History] Metoprolol Tartrate 75 mg PO DAILY 05/24/20 [History] Dulaglutide [Trulicity] 3 mg SQ HENRY 11/30/20 [History] Furosemide [Lasix] 40 mg PO DAILY 11/30/20 [History] Insulin Glargine,Hum.rec.anlog [Toujeo Solostar] 35 units SQ HS 11/30/20 [History] Acetaminophen Tab [Tylenol] 1,000 mg PO Q6HR PRN 12/06/20 [History] Aspirin 81 mg PO DAILY 90 Days #90 chew 12/16/20 [Rx] Calcium Carbonate [Tums] 1,000 mg PO QID PRN 90 Days #90 chew 12/16/20 [Rx] Folic Acid 1 mg PO DAILY 90 Days #90 tab 12/27/20 [Rx] HYDROcodone/APAP 5-325MG [[place] 5-325] 1 each PO Q4HR PRN 3 Days #18 tab 02/21/21 [Rx] Follow up Appointment(s)/Referral(s): [facility], [NON-STAFF] - Patient Instructions/Handouts: Below the Knee Amputation (DC) Activity/Diet/Wound Care/Special Instructions: 1. 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 [facility]: [phone] - please call if you have any questions regarding needs for your left leg Wound VAC to right lower extremity to be changed every 3 days Dressing change as needed to left stump Patient may shower, no tub bath. Follow-up with Dr. Armenta in 1-2 weeks. Follow-up with wound care as previously scheduled Discharge Disposition: HOME WITH HOME HEALTH SERVICES
[2021-02-21 09:34] LABS: African American GFR (CKD) 63 (>60 ml/min/1.73 sqM); Anion Gap 3 mmol/L; Blood Urea Nitrogen 25 mg/dL (9-20); Calcium 7.9 mg/dL (8.4-10.2); Carbon Dioxide 31 mmol/L (22-30); Chloride 101 mmol/L (98-107); Glucose 233 mg/dL (74-99); Non-African American GFR(CKD) 54 (>60 ml/min/1.73 sqM); Sodium 135 mmol/L (137-145)
[2021-02-21 09:43] LABS: Anisocytosis Slight; HCT 25.7 % (39.0-53.0); Hypochromasia Moderate; MCH 23.9 pg (25.0-35.0); MCHC 30.7 g/dL (31.0-37.0); Mean Platelet Volume 7.2; Microcytosis Slight; Platelet Count 440 k/uL (150-450); RDW 16.1 % (11.5-15.5)
[2021-02-21 09:46] LABS: HGB 7.9 gm/dL (13.0-17.5)
[2021-02-21 10:36] LABS: Neutrophils % (M) 78 %; Nucleated Red Blood Cells 0 /100 WBC (0-0); Total Cells Counted 100
[2021-02-21] MEDS: SODIUM CHLORIDE 0.9% 1,000 ML IV SCH ×2 (10:47→20:46)
[2021-02-21 11:30] LABS: Glucose,Whole Blood 241 mg/dL (75-99)
--- NOTE | 2021-02-21 14:12 | XR ---
EXAMINATION TYPE: XR chest 2V DATE OF EXAM: 02/21/2021 COMPARISON: Chest x-ray 12/22/2020 HISTORY: Fever TECHNIQUE: Frontal and lateral views of the chest are obtained on 3 images. FINDINGS: Right-sided PICC line has been removed. Generator in the left pectoral region, leads in th e right atrium, right ventricle, coronary sinus are again noted, patient is post median sternotomy. I s no evident pneumothorax. Cardiac mediastinal silhouette is stable. Aorta is dense. Patchy basilar d ensity is noted. IMPRESSION: Ossicle basilar atelectasis, scarring, correlate to exclude pneumonia
[2021-02-21 16:41] LABS: Glucose,Whole Blood 283 mg/dL (75-99)
[2021-02-21 16:56] LABS: Appearance,Urine Clear (Clear); Bacteria,Urine Occasional /hpf; Bilirubin,Urine Negative (Negative); Blood,Urine Trace (Negative); Color,Urine Light Yellow; Glucose,Urine (UA) 1+ (Negative); Hyaline Casts,Urine 4 /lpf (0-2); Ketones,Urine Negative (Negative); Leukocyte Esterase,Urine Large (Negative); Mucus,Urine Rare /hpf; Nitrite,Urine Negative (Negative); PH, Urine 5.5 (5.0-8.0); Protein,Urine Trace (Negative); RBC,Urine 4 /hpf (0-5); Specific Gravity,Urine 1.009 (1.001-1.035); Urobilinogen,Urine <2.0 mg/dL (<2.0); WBC,Urine 60 /hpf (0-5)
[2021-02-21 21:07] LABS: Glucose,Whole Blood 289 mg/dL (75-99)
[2021-02-21] MEDS: HYDROcodone/APAP 5-325MG 1 EACH TAB PO PRN (23:10)
[2021-02-22 01:54] LABS: Glucose,Whole Blood 215 mg/dL (75-99)
[2021-02-22] MEDS: SODIUM CHLORIDE 0.9% 1,000 ML IV SCH ×2 (05:26→16:39)
[2021-02-22] MEDS: LACTATED RINGERS 1,000 ML IV SCH (05:26)
--- NOTE | 2021-02-22 06:12 | PN ---
PROGRESS NOTE 65-year-old white male status post left below-knee amputation. His pain is much improved. Severe pain in the left leg is gone. He has a wound VAC in the right foot for right foot infection. CARDIOVASCULAR: S1, S2. Lungs clear. GI soft. Hematology negative Homans. ASSESSMENT: Mild phantom pain, status post left below knee amputation for severe peripheral arterial disease and diabetic wound infection down to the bone. Failed treatment for multiple months. PROGNOSIS: Extremely guarded. As far as right foot goes, continue wound VAC. Continue broad-spectrum antibiotics. Diabetic good control with sugars. PT/OT possible discharge home tomorrow. MMODL / IJN: [id number] /
[2021-02-22] MEDS: LEVOTHYROXINE 100 MCG TAB PO SCH (06:20)
[2021-02-22] MEDS: LEVOTHYROXINE 50 MCG TAB PO SCH (06:21)
[2021-02-22 07:19] LABS: Glucose,Whole Blood 205 mg/dL (75-99)
[2021-02-22] MEDS: INSULIN ASPART (NovoLOG) 100 UNIT/ML VIAL SQ SCH ×4 (07:38→22:29)
[2021-02-22] MEDS: METOPROLOL TARTRATE 25 MG TAB PO SCH ×2 (07:39→22:29)
[2021-02-22] MEDS: FUROSEMIDE 40 MG TAB PO SCH (07:40)
[2021-02-22] MEDS: ATORVASTATIN 40 MG TAB PO SCH (07:40)
[2021-02-22] MEDS: ASPIRIN 81 MG PO SCH (07:40)
[2021-02-22] MEDS: FOLIC ACID 1 MG TAB PO SCH (07:41)
[2021-02-22] MEDS: LOSARTAN 50 MG TAB PO SCH (07:41)
[2021-02-22] MEDS: FENOFIBRATE 160 MG TAB PO SCH (07:41)
[2021-02-22 08:42] LABS: HCT 25.3 % (39.0-53.0); HGB 8.2 gm/dL (13.0-17.5); MCH 24.8 pg (25.0-35.0); MCHC 32.6 g/dL (31.0-37.0); MCV 76.2 fL (80.0-100.0); Mean Platelet Volume 7.2; Microcytosis Slight; Platelet Count 436 k/uL (150-450); RBC 3.31 m/uL (4.30-5.90); RDW 15.9 % (11.5-15.5); WBC 11.3 k/uL (3.8-10.6)
[2021-02-22 11:31] LABS: Glucose,Whole Blood 305 mg/dL (75-99)
--- NOTE | 2021-02-22 12:15 | P.PN ---
Subjective Progress Note Date: 02/22/21 Principal diagnosis: Left below the knee amputation The patient was seen and examined lying in bed. He is postop day #5 for left arcgv-yro-bpdf amputation. He has a diabetic ulcer to the right lateral side of the his foot, as well as a pressure ulcer on his right heel. Saturday evening the patient spiked a temperature with a max temperature 101.1, and an elevated CBC yesterday of 15. Labs are pending today. Infectious disease has been consulted regarding possible need for antibiotics. He denies any fevers through the night, however did say that he had night sweats but the nurse said he was afebrile. He denies any extremity pain, shortness breath, or chest pain. He is urinating, which is clear. Chest x-ray was ordered yesterday showing ossicle basilar atelectasis, scarring, correlate to exclude pneumonia Objective - Vital Signs Vital signs: Vital Signs Temp 98.4 F 02/22/21 07:56 Pulse 63 02/22/21 07:56 Resp 17 02/22/21 07:56 BP 139/65 02/22/21 07:56 Pulse Ox 99 02/22/21 07:56 Intake & Output 02/21/21 02/22/21 02/22/21 18:59 06:59 18:59 Output Total 250 Balance -250 Weight 92.986 kg Output: Urine 250 Other: Voiding Method Urinal # Voids 6 - Labs CBC & Chem 7: 02/22/21 07:49 02/21/21 09:04 Labs: Abnormal Lab Results - Last 24 Hours (Table) 02/21/21 02/21/21 02/21/21 Range/Units 11:27 16:38 16:40 WBC (3.8-10.6) k/uL RBC (4.30-5.90) m/uL Hgb (13.0-17.5) gm/dL Hct (39.0-53.0) % MCV (80.0-100.0) fL MCH (25.0-35.0) pg RDW (11.5-15.5) % POC Glucose (mg/dL) 241 H 283 H (75-99) mg/dL Urine Protein Trace H (Negative) Urine Glucose (UA) 1+ H (Negative) Urine Blood Trace H (Negative) Ur Leukocyte Esterase Large H (Negative) Urine WBC 60 H (0-5) /hpf Urine Bacteria Occasional H (None) /hpf Hyaline Casts 4 H (0-2) /lpf Urine Mucus Rare H (None) /hpf 02/21/21 02/22/21 02/22/21 Range/Units 21:06 01:53 07:00 WBC (3.8-10.6) k/uL RBC (4.30-5.90) m/uL Hgb (13.0-17.5) gm/dL Hct (39.0-53.0) % MCV (80.0-100.0) fL MCH (25.0-35.0) pg RDW (11.5-15.5) % POC Glucose (mg/dL) 289 H 215 H 205 H (75-99) mg/dL Urine Protein (Negative) Urine Glucose (UA) (Negative) Urine Blood (Negative) Ur Leukocyte Esterase (Negative) Urine WBC (0-5) /hpf Urine Bacteria (None) /hpf Hyaline Casts (0-2) /lpf Urine Mucus (None) /hpf 02/22/21 Range/Units 07:49 WBC 11.3 H (3.8-10.6) k/uL RBC 3.31 L (4.30-5.90) m/uL Hgb 8.2 L (13.0-17.5) gm/dL Hct 25.3 L (39.0-53.0) % MCV 76.2 L (80.0-100.0) fL MCH 24.8 L (25.0-35.0) pg RDW 15.9 H (11.5-15.5) % POC Glucose (mg/dL) (75-99) mg/dL Urine Protein (Negative) Urine Glucose (UA) (Negative) Urine Blood (Negative) Ur Leukocyte Esterase (Negative) Urine WBC (0-5) /hpf Urine Bacteria (None) /hpf Hyaline Casts (0-2) /lpf Urine Mucus (None) /hpf Assessment and Plan Assessment: Postop day #5 left lower extremity below the knee amputation Right lower extremity wounds Diabetes Plan: Change wound VAC dressing every 3 days to right lower extremity Offload right lower extremity heel Continue with stump general practitioner and rigid dressing Physical therapy on consult X-ray reviewed Infectious disease consult with further opinion of possible need for antibiotics The impression and plan of care has been dictated as directed. Dr. Armenta I performed a history and examination of this patient, discussed the same with the dictator. I agree with the dictator's note ,documented as a scribe. Any additional findings or plans will be noted.
--- NOTE | 2021-02-22 15:02 | CONS ---
CONSULTATION DATE OF SERVICE: 02/22/2021 REASON FOR CONSULTATION: Fever. HISTORY OF PRESENT ILLNESS: The patient is a 65-year-old male with multiple comorbidities, including diabetes mellitus, bilateral diabetic foot wound, left greater than right foot. The patient was electively admitted to the hospital on 02/17/2021 for left jvlkq-opp-bqcu amputation for nonhealing wound to the left foot area. The patient did have the procedure completed on the same day with left hgjwf-vjq-ktgy amputation. No complication postop. The patient did not have any fever on presentation to the hospital. However, he did spike a fever only x1 on 02/20/2021 in the evening with a temperature of 101.1 degrees Fahrenheit. The next morning around 2:48 a.m. he did have fever of 100.3, but no fever since then. The patient did have a mildly elevated white count on the 25th of 15,000. Creatinine was mildly elevated. Liver enzymes are normal. Did have positive UA with large leukocyte esterase and 60 WBC. Dale PCR was negative. He did have a chest x-ray some basilar atelectasis, scarring, correlate to exclude pneumonia. Infectious Disease was consulted last evening for his fever. The patient currently does not have any active symptoms. The patient denies having any headache. No chest pain. No shortness of breath or cough. No abdominal pain. Pain to the left BKA stump is currently controlled. He did have wound VAC application to the right foot wound which was taken off and the wound bed looks clean. REVIEW OF SYSTEMS: Positive points have been mentioned in HPI. Rest of the systems are negative. PAST MEDICAL HISTORY: Diabetes mellitus, heart failure, hypertension, hyperlipidemia, DE, osteoarthritis, hypothyroidism, diabetic foot infection. PAST SURGICAL HISTORY: AICD placement, coronary artery bypass grafting, PTCA with stenting, multiple debridement of the foot wound, pacemaker placement. SOCIAL HISTORY: Remote history of smoking. No drinking or drug use. FAMILY HISTORY: Father with history of DE. Mother history of diabetes and kidney disease. ALLERGIES: No known drug allergies. MEDICATIONS: Medications include the patient is currently on Tylenol, [place], aspirin, Lipitor, Tums, Lofibra, folic acid, Lasix, NovoLog, lactated Ringer's, Synthroid, Cozaar, Lopressor, Zofran and IV fluid. PHYSICAL EXAMINATION: Blood pressure is 139/65, pulse of 63, temperature 98.4. He is 99% on room air. General description is a middle-aged male lying in bed in no distress. HEENT: Examination shows slight pallor. No scleral icterus. Oral mucous membrane is dry. NECK: Trachea central. No thyromegaly. LUNGS: Unlabored breathing, clear to auscultation anteriorly with crackles. HEART: S1, S2. Regular rate and rhythm. ABDOMEN: Soft, no tenderness. No guarding or rigidity. EXTREMITIES: Left BKA stump is currently dressed. Right foot wound VAC was removed. Wound base looks clean and there is no evidence of any cellulitis. LABS: Hemoglobin is 8.2 with white count down to 11.3 as of this morning. BUN of 22, creatinine 1.1. Electrolytes are normal. Liver enzymes are normal. Urine was slightly positive. Dale PCR was negative. Chest x-ray did not show any pneumonia. DIAGNOSTIC IMPRESSION: Patient electively admitted to the hospital for left dqwrd-bbb-htga amputation for a nonhealing wound to the left foot which was completed on 02/17/2021. The patient did have an episode of fever in the evening of 02/20 and the morning of 02/21 and he did have an elevated white count that day; however, the patient did not have any obvious focus of infection. The patient's fever subsequently resolved without any antibiotic therapy and his cultures are negative with negative workup and no obvious focus of infection. Recommend to monitor the patient closely off antibiotic therapy. PLAN: 1. No need for any systemic antibiotic therapy at this point or on discharge. 2. Local care to continue per Vascular Surgery. MMODL / IJN: [id number] /
[2021-02-22 16:51] LABS: Glucose,Whole Blood 235 mg/dL (75-99)
[2021-02-22 20:39] LABS: Glucose,Whole Blood 206 mg/dL (75-99)
[2021-02-22] MEDS: HYDROcodone/APAP 5-325MG 1 EACH TAB PO PRN (22:29)
[2021-02-23] MEDS: SODIUM CHLORIDE 0.9% 1,000 ML IV SCH (03:45)
[2021-02-23] MEDS: LEVOTHYROXINE 100 MCG TAB PO SCH (06:12)
[2021-02-23] MEDS: LEVOTHYROXINE 50 MCG TAB PO SCH (06:12)
[2021-02-23 06:47] LABS: Glucose,Whole Blood 201 mg/dL (75-99)
[2021-02-23] MEDS ORDERED: INSULIN DETEMIR (LEVEMIR) 100 UNIT/ML SYR SQ SCH ×2 (07:37→07:45)
--- NOTE | 2021-02-23 07:56 | P.DS ---
Providers Date of admission: 02/17/21 10:26 Attending physician: Denia Armenta DO Consults: 02/17/21 14:59 Consult Physician Routine Consulting Provider: Johny Granado Consult Reason/Comments: post bka, med mgmnt Do you want consulting provider notified?: Yes 02/22/21 07:57 Consult Physician Urgent Consulting Provider: Vivi Bustamante Consult Reason/Comments: fever, questionable pneumonia, wounds: input for abx Do you want consulting provider notified?: Yes Primary care physician: Corey Hospital Course: This is A pleasant 65-year-old male with bilateral lower extremity wounds type 2 diabetes neuropathy, heart failure, hyperlipidemia, and hypertension. He had nonhealing wounds that have come to a point where he was recommended to undergo amputation of his left lower extremity. He underwent a left below the knee amputation on 02/17/2021. Physical therapy evaluated the patient and deemed the patient is safe to go home with in-home rehab. The patient was agreeable to this plan. He will be discharged home with a wound VAC to the right lower extremity. He had a spike in his temperature Saturday evening with a max temp 101.3, he has been afebrile since. Infectious disease was consulted for recommendation if home antibiotics were needed, and Dr. Bustamante deemed not necessary. Patient will be discharged home today. Assessment: The patient is seen and examined. He has stump pipe organ mechanic on left stump and wound vac on right foot. He denies any acute changes through the night. He has remained afebrile, pain well controlled. Plan is for discharge home today with home care/physical therapy. Exam: General appearance: The patient is alert, oriented, in no acute distress. HET: Head is normocephalic and atraumatic. Pupils are equal and reactive. Oropharynx is clear without lesions. Neck: Supple without lymphadenopathy. Trachea midline. Heart: S1 S2. Regular rate and rhythm. Lungs: No crackles or wheezes are heard. Abdomen: Soft, nontender, nondistended with bowel sounds. No peritoneal signs. No palpable organomegaly or masses. Extremities: Left lower extremity with dressing clean dry and intact with stump pipe organ mechanic on stump. Right lower extremity with dressing clean dry and intact with a heel wound and wound VAC in place. Neurological: No focal deficits. Strength and sensation are grossly intact. Assessment: Postop day #6 left lower extremity below the knee amputation Right lower extremity wounds Diabetes Plan: Wound VAC to be changed every 3 days to right lower extremity Offload right lower extremity heel Stump pipe organ mechanic and rigid dressing to left BKA stump Physical therapy on consult The impression and plan of care has been dictated as directed. Dr. Saul Valladares performed a history and examination of this patient, discussed the same with the dictator. I agree with the dictator's note ,documented as a scribe. Any additional findings or plans will be noted. Patient Condition at Discharge: Good Plan - Discharge Summary Discharge Rx Participant: Yes New Discharge Prescriptions: New HYDROcodone/APAP 5-325MG [[place] 5-325] 1 each PO Q4HR PRN 3 Days #18 tab PRN Reason: Pain Scale 6 To 7 Continue Losartan Potassium 50 mg PO DAILY Insulin Lispro [humaLOG Kwikpen] See Protocol SQ ACHS PRN PRN Reason: BS >300 Fenofibrate 160 mg PO DAILY Metoprolol Tartrate 75 mg PO DAILY Levothyroxine Sodium [Synthroid] 50 mcg PO DAILY Levothyroxine Sodium [Synthroid] 200 mcg PO DAILY Atorvastatin [Lipitor] 40 mg PO DAILY Insulin Glargine,Hum.rec.anlog [[place] Solostar] 35 units SQ HS Furosemide [Lasix] 40 mg PO DAILY Dulaglutide [Trulicity] 3 mg SQ HENRY Acetaminophen Tab [Tylenol] 1,000 mg PO Q6HR PRN PRN Reason: Pain Aspirin 81 mg PO DAILY 90 Days #90 chew Calcium Carbonate [Tums] 1,000 mg PO QID PRN 90 Days #90 chew PRN Reason: Heartburn Folic Acid 1 mg PO DAILY 90 Days #90 tab Discharge Medication List Fenofibrate 160 mg PO DAILY 03/31/14 [History] Insulin Lispro [humaLOG Kwikpen] See Protocol SQ ACHS PRN 03/31/14 [History] Losartan Potassium 50 mg PO DAILY 03/31/14 [History] Atorvastatin [Lipitor] 40 mg PO DAILY 05/24/20 [History] Levothyroxine Sodium [Synthroid] 50 mcg PO DAILY 05/24/20 [History] Levothyroxine Sodium [Synthroid] 200 mcg PO DAILY 05/24/20 [History] Metoprolol Tartrate 75 mg PO DAILY 05/24/20 [History] Dulaglutide [Trulicity] 3 mg SQ HENRY 11/30/20 [History] Furosemide [Lasix] 40 mg PO DAILY 11/30/20 [History] Insulin Glargine,Hum.rec.anlog [[place]o Solostar] 35 units SQ HS 11/30/20 [History] Acetaminophen Tab [Tylenol] 1,000 mg PO Q6HR PRN 12/06/20 [History] Aspirin 81 mg PO DAILY 90 Days #90 chew 12/16/20 [Rx] Calcium Carbonate [Tums] 1,000 mg PO QID PRN 90 Days #90 chew 12/16/20 [Rx] Folic Acid 1 mg PO DAILY 90 Days #90 tab 12/27/20 [Rx] HYDROcodone/APAP 5-325MG [[place] 5-325] 1 each PO Q4HR PRN 3 Days #18 tab 02/21/21 [Rx] Follow up Appointment(s)/Referral(s): [facility], [NON-STAFF] - Patient Instructions/Handouts: Below the Knee Amputation (DC) Activity/Diet/Wound Care/Special Instructions: 1. Wound vac - [facility]/: [phone] (Vtc Technician needs to call at discharge to resume home wound vac - please call CM with d/c) 2. [facility]: [phone] - please call if you have any questions regarding needs for your left leg Wound VAC to right lower extremity to be changed every 3 days Dressing change as needed to left stump Patient may shower, no tub bath. Follow-up with Dr. Armenta in 1-2 weeks. Follow-up with wound care as previously scheduled Discharge Disposition: HOME WITH HOME HEALTH SERVICES
[2021-02-23] MEDS: LOSARTAN 50 MG TAB PO SCH (08:22)
[2021-02-23] MEDS: ASPIRIN 81 MG PO SCH (08:22)
[2021-02-23] MEDS: METOPROLOL TARTRATE 25 MG TAB PO SCH (08:22)
[2021-02-23] MEDS: INSULIN ASPART (NovoLOG) 100 UNIT/ML VIAL SQ SCH ×3 (08:22→17:16)
[2021-02-23] MEDS: FOLIC ACID 1 MG TAB PO SCH (08:23)
[2021-02-23] MEDS: ATORVASTATIN 40 MG TAB PO SCH (08:23)
[2021-02-23] MEDS: FUROSEMIDE 40 MG TAB PO SCH (08:23)
[2021-02-23] MEDS: FENOFIBRATE 160 MG TAB PO SCH (08:23)
[2021-02-23] MEDS ORDERED: GABAPENTIN 100 MG CAP PO SCH (11:30)
[2021-02-23 14:38] VITALS: BP 101/61; PULSE 67; RESP 18; TEMP 97.9
[2021-02-23] MEDS: LACTATED RINGERS 1,000 ML IV SCH (15:32)
--- NOTE | 2021-02-23 16:20 | PN ---
PROGRESS NOTE DATE OF SERVICE: 02/23/2021 REASON FOR FOLLOWUP: Postop fever. INTERVAL HISTORY: The patient is currently afebrile. Patient is breathing comfortably. Patient denies having any chest pain. No shortness of breath or cough. No abdominal pain or diarrhea. PHYSICAL EXAMINATION: Blood pressure 101/61 with a pulse of 67, temperature 97.9. He is 99% on room air. General description is a middle-aged male lying in bed in no distress. RESPIRATORY SYSTEM: Unlabored breathing, clear to auscultation anteriorly. HEART: S1, S2. Regular rate and rhythm. ABDOMEN: Soft, no tenderness. LABS: Hemoglobin is 8.2, white count 11.3. DIAGNOSTIC IMPRESSION AND PLAN: Patient with fever postoperative below knee amputation in this patient with no obvious focus of infection. Culture has been negative so far. The patient's fever resolved without antibiotic therapy. Recommend no antibiotic on discharge. MMODL / IJN: [id number] /
[2021-02-23 16:49] LABS: Glucose,Whole Blood 242 mg/dL (75-99)
--- NOTE | 2021-02-24 00:08 | P.PN ---
Subjective This is a pleasant 65 years old male with multiple medical problems including heart failure, diabetes mellitus, GERD, hearing disorder, hyperlipidemia, hypertension, osteoarthritis, hypothyroidism, chronic kidney disease stage III, ischemic cardiomyopathy status post AICD, he is admitted under Dr. Kathi jang for nonhealing left lower extremity wound status post left below-knee amputation. Continue supportive care and management. Patient was about the discharge today by surgery team, he developed fever and thus far To be monitored for another 24 hours, infectious disease consult obtained who recommended no antibiotics as fever improved and subsided without antibiotic. Today patient is doing well and he feels he can go home. He was on long-acting insulin 35 units lowered to 18 units daily with instructions to keep close monitoring for glucose, check glucose 4 times a day explained to the patient extensively and he verbalized understanding and acceptance Objective - Vital Signs Vital signs: Vital Signs Temp 97.9 F 02/23/21 14:38 Pulse 67 02/23/21 14:38 Resp 18 02/23/21 14:38 BP 101/61 02/23/21 14:38 Pulse Ox 99 02/23/21 14:38 Intake & Output 02/22/21 02/23/21 02/23/21 18:59 06:59 18:59 Output Total 600 500 Balance -600 -500 Output: Urine 600 500 Other: Voiding Method Urinal Urinal # Voids 5 # Bowel Movements 1 - Exam GENERAL: The patient is alert and oriented x3, not in any acute distress. Well developed, well nourished. HEENT: Pupils are round and equally reacting to light. EOMI. No scleral icterus. No conjunctival pallor. Normocephalic, atraumatic. No pharyngeal erythema. No thyromegaly. CARDIOVASCULAR: S1 and S2 present. No murmurs, rubs, or gallops. PULMONARY: Chest is clear to auscultation, no wheezing or crackles. ABDOMEN: Soft, nontender, nondistended, normoactive bowel sounds. No palpable organomegaly. MUSCULOSKELETAL: No joint swelling or deformity. -EXTREMITIES: No cyanosis, clubbing, or pedal edema. Bilateral BKA NEUROLOGICAL: Gross neurological examination did not reveal any focal deficits. SKIN: No rashes. no petechiae. - Labs CBC & Chem 7: 02/22/21 07:49 02/21/21 09:04 Labs: Abnormal Lab Results - Last 24 Hours (Table) 02/22/21 02/22/21 02/23/21 Range/Units 16:48 20:39 06:46 POC Glucose (mg/dL) 235 H 206 H 201 H (75-99) mg/dL Assessment and Plan Assessment: -Left lower extremity wound diabetic nonhealing followed by left below-knee amputation -Diabetes mellitus type 2, on insulin. 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 He is doing well he is eating well, no chest pain or dyspnea Continue with insulin but adjust dose, we started him on 15 units daily and du ring the day he needed 3 more units so adjusted to 18 units daily upon discharge and prescription sent to the pharmacy, I discussed with Moisés the bedside nurse Labs and medication were reviewed.. Continue same treatment. Continue with symptomatic treatment. Resume home medication. Monitor lytes and vitals. DVT and GI prophylaxis pain management for surgery primary team Patient is medically stable instructed patient to follow-up with PCP within one week after discharge and he verbalized understanding and acceptance Thank you for consulting us
--- NOTE | 2021-02-24 00:09 | P.PN ---
Subjective This is a pleasant 65 years old male with multiple medical problems including heart failure, diabetes mellitus, GERD, hearing disorder, hyperlipidemia, hypertension, osteoarthritis, hypothyroidism, chronic kidney disease stage III, ischemic cardiomyopathy status post AICD, he is admitted under Dr. Kathi jang for nonhealing left lower extremity wound status post left below-knee amputation. Continue supportive care and management. Patient was about the discharge today by surgery team, he developed fever and thus far To be monitored for another 24 hours, infectious disease consult obtained Objective - Vital Signs Vital signs: Vital Signs Temp 98.4 F 02/22/21 07:56 Pulse 63 02/22/21 07:56 Resp 17 02/22/21 07:56 BP 139/65 02/22/21 07:56 Pulse Ox 99 02/22/21 07:56 Intake & Output 02/21/21 02/22/21 02/22/21 18:59 06:59 18:59 Output Total 250 Balance -250 Weight 92.986 kg Output: Urine 250 Other: Voiding Method Urinal # Voids 6 - Exam GENERAL: The patient is alert and oriented x3, not in any acute distress. Well developed, well nourished. HEENT: Pupils are round and equally reacting to light. EOMI. No scleral icterus. No conjunctival pallor. Normocephalic, atraumatic. No pharyngeal erythema. No thyromegaly. CARDIOVASCULAR: S1 and S2 present. No murmurs, rubs, or gallops. PULMONARY: Chest is clear to auscultation, no wheezing or crackles. ABDOMEN: Soft, nontender, nondistended, normoactive bowel sounds. No palpable organomegaly. MUSCULOSKELETAL: No joint swelling or deformity. -EXTREMITIES: No cyanosis, clubbing, or pedal edema. Bilateral BKA NEUROLOGICAL: Gross neurological examination did not reveal any focal deficits. SKIN: No rashes. no petechiae. - Labs CBC & Chem 7: 02/22/21 07:49 02/21/21 09:04 Labs: Abnormal Lab Results - Last 24 Hours (Table) 02/21/21 02/21/21 02/21/21 Range/Units 16:38 16:40 21:06 WBC (3.8-10.6) k/uL RBC (4.30-5.90) m/uL Hgb (13.0-17.5) gm/dL Hct (39.0-53.0) % MCV (80.0-100.0) fL MCH (25.0-35.0) pg RDW (11.5-15.5) % POC Glucose (mg/dL) 283 H 289 H (75-99) mg/dL Urine Protein Trace H (Negative) Urine Glucose (UA) 1+ H (Negative) Urine Blood Trace H (Negative) Ur Leukocyte Esterase Large H (Negative) Urine WBC 60 H (0-5) /hpf Urine Bacteria Occasional H (None) /hpf Hyaline Casts 4 H (0-2) /lpf Urine Mucus Rare H (None) /hpf 02/22/21 02/22/21 02/22/21 Range/Units 01:53 07:00 07:49 WBC 11.3 H (3.8-10.6) k/uL RBC 3.31 L (4.30-5.90) m/uL Hgb 8.2 L (13.0-17.5) gm/dL Hct 25.3 L (39.0-53.0) % MCV 76.2 L (80.0-100.0) fL MCH 24.8 L (25.0-35.0) pg RDW 15.9 H (11.5-15.5) % POC Glucose (mg/dL) 215 H 205 H (75-99) mg/dL Urine Protein (Negative) Urine Glucose (UA) (Negative) Urine Blood (Negative) Ur Leukocyte Esterase (Negative) Urine WBC (0-5) /hpf Urine Bacteria (None) /hpf Hyaline Casts (0-2) /lpf Urine Mucus (None) /hpf 02/22/21 Range/Units 11:29 WBC (3.8-10.6) k/uL RBC (4.30-5.90) m/uL Hgb (13.0-17.5) gm/dL Hct (39.0-53.0) % MCV (80.0-100.0) fL MCH (25.0-35.0) pg RDW (11.5-15.5) % POC Glucose (mg/dL) 305 H (75-99) mg/dL Urine Protein (Negative) Urine Glucose (UA) (Negative) Urine Blood (Negative) Ur Leukocyte Esterase (Negative) Urine WBC (0-5) /hpf Urine Bacteria (None) /hpf Hyaline Casts (0-2) /lpf Urine Mucus (None) /hpf Assessment and Plan Assessment: -Left lower extremity wound diabetic nonhealing followed by left below-knee amputation -Diabetes mellitus type 2, on insulin. 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 He is doing well he is eating well, no chest pain or dyspnea Continue with insulin and adjust dose accordingly Labs and medication were reviewed.. Continue same treatment. Continue with symptomatic treatment. Resume home medication. Monitor lytes and vitals. DVT and GI prophylaxis pain management for surgery primary team patient to follow-up with PCP within one week after discharge and he verbalized understanding and acceptance Thank you for consulting us
== END 2021-02-23 18:30 | disposition home health service (06) | DRG 240 ==
LOC: 2ORMAIN 10:26 → 4SSUR 14:43
PROVIDERS: ADMIT Surgery; ATTEND Surgery
PROC: 0Y6J0Z1 Detachment at Left Lower Leg, High, Open Approach (ICD-10-PCS; principal; 2021-02-17 12:00)
DX: E11.51 Type 2 diabetes mellitus with diabetic peripheral angiopathy without gangrene (principal); I13.0 Hypertensive heart and chronic kidney disease with heart failure and stage 1 through stage 4 chronic kidney disease, or unspecified chronic kidney disease; I50.32 Chronic diastolic (congestive) heart failure; J98.11 Atelectasis; L03.115 Cellulitis of right lower limb; L03.116 Cellulitis of left lower limb; L97.919 Non-pressure chronic ulcer of unspecified part of right lower leg with unspecified severity; E03.9 Hypothyroidism, unspecified; E11.22 Type 2 diabetes mellitus with diabetic chronic kidney disease; E11.42 Type 2 diabetes mellitus with diabetic polyneuropathy; E11.621 Type 2 diabetes mellitus with foot ulcer; E11.649 Type 2 diabetes mellitus with hypoglycemia without coma; E78.5 Hyperlipidemia, unspecified; G54.6 Phantom limb syndrome with pain; H91.90 Unspecified hearing loss, unspecified ear; Z20.822 Contact with and (suspected) exposure to COVID-19; I25.2 Old myocardial infarction; I25.5 Ischemic cardiomyopathy; I50.84 End stage heart failure; J44.9 Chronic obstructive pulmonary disease, unspecified; K21.9 Gastro-esophageal reflux disease without esophagitis; L89.619 Pressure ulcer of right heel, unspecified stage; L97.509 Non-pressure chronic ulcer of other part of unspecified foot with unspecified severity; M19.91 Primary osteoarthritis, unspecified site; I70.245 Atherosclerosis of native arteries of left leg with ulceration of other part of foot; Z79.4 Long term (current) use of insulin; N18.30 Chronic kidney disease, stage 3 unspecified; R50.82 Postprocedural fever; Z82.3 Family history of stroke; Z82.49 Family history of ischemic heart disease and other diseases of the circulatory system; Z82.5 Family history of asthma and other chronic lower respiratory diseases; Z83.3 Family history of diabetes mellitus; Z87.891 Personal history of nicotine dependence; Z95.810 Presence of automatic (implantable) cardiac defibrillator; H93.13 Tinnitus, bilateral; M19.90 Unspecified osteoarthritis, unspecified site; Z95.1 Presence of aortocoronary bypass graft; Z95.5 Presence of coronary angioplasty implant and graft; Z84.1 Family history of disorders of kidney and ureter; Z98.42 Cataract extraction status, left eye; Z98.41 Cataract extraction status, right eye; Z96.1 Presence of intraocular lens; Z79.890 Hormone replacement therapy; Z79.899 Other long term (current) drug therapy
CPT/HCPCS: 71046; 80048; 80053; 81001; 85025; 85027; 86850; 86900; 86901; 87635

== ENCOUNTER 2021-03-20 12:43 | Inpatient (IN) | payer MEDICARE ==
[2021-03-20] MEDS ORDERED: SODIUM CHLORIDE 0.9% 1,000 ML IV STA (14:40)
[2021-03-20] MEDS ORDERED: VANCOMYCIN IV PER PHARMACY 1 EACH MISC MISCELLANE PRN (14:41)
--- NOTE | 2021-03-20 14:50 | ED ---
Skin/Abscess/FB HPI - General Chief complaint: Skin/Abscess/Foreign Body Stated complaint: right foot wound Time Seen by Provider: 03/20/21 14:31 Source: patient Mode of arrival: wheelchair Limitations: physical limitation - History of Present Illness Initial comments: 65-year-old male with history of chronic diabetic wounds on the right foot presents to emergency Department with a chief complaint of a foot infection. Patient states he goes to the wound clinic and was advised to come to emergency department for IV antibiotics and admission. Patient states over the last week, he has developed gradual increase in his wound near the fifth toe along with necrotic changes. States he also has developed a foul odor. Also reports having a fever over the last week of 102. States she has been taking Tylenol for it and able to break the fever. He also reports 2 additional ones on the heel and on the lateral aspect of the right plantar aspect of her foot. He denies diabetic peripheral neuropathy so pain is minimal. - Related Data Home Medications Medication Instructions Recorded Confirmed Fenofibrate 160 mg PO DAILY 03/31/14 02/17/21 Insulin Lispro [humaLOG Kwikpen] See Protocol SQ ACHS PRN 03/31/14 02/17/21 Losartan Potassium 50 mg PO DAILY 03/31/14 02/17/21 Atorvastatin [Lipitor] 40 mg PO DAILY 05/24/20 02/17/21 Levothyroxine Sodium [Synthroid] 50 mcg PO DAILY 05/24/20 02/17/21 Levothyroxine Sodium [Synthroid] 200 mcg PO DAILY 05/24/20 02/17/21 Metoprolol Tartrate 75 mg PO DAILY 05/24/20 02/17/21 Dulaglutide [Trulicity] 3 mg SQ HENRY 11/30/20 02/17/21 Furosemide [Lasix] 40 mg PO DAILY 11/30/20 02/17/21 Acetaminophen Tab [Tylenol] 1,000 mg PO Q6HR PRN 12/06/20 02/17/21 Previous Rx's Medication Instructions Recorded Aspirin 81 mg PO DAILY 90 Days #90 chew 12/16/20 Calcium Carbonate [Tums] 1,000 mg PO QID PRN 90 Days #90 12/16/20 chew Folic Acid 1 mg PO DAILY 90 Days #90 tab 12/27/20 HYDROcodone/APAP 5-325MG [Jordan 1 each PO Q4HR PRN 3 Days #18 tab 02/21/21 5-325] Gabapentin [Neurontin] 100 mg PO TID 30 Days #90 cap 02/23/21 Insulin Glargine,Hum.rec.anlog 18 units SQ DAILY #1 vial 02/23/21 [Sofia Fajardo] Allergies Allergy/AdvReac Type Severity Reaction Status Date / Time No Known Allergies Allergy Verified 03/20/21 12:54 Review of Systems ROS Statement: Those systems with pertinent positive or pertinent negative responses have been documented in the HPI. ROS Other: All systems not noted in ROS Statement are negative. Past Medical History Past Medical History: Heart Failure, Diabetes Mellitus, Diabetes Mellitus, Eye Disorder, GERD/Reflux, Hearing Disorder / Deafness, Hyperlipidemia, Hypertension, Myocardial Infarction (VT), Osteoarthritis (OA), Renal Disease, Skin Disorder, Thyroid Disorder Additional Past Medical History / Comment(s): IDDM type II, neuropathy bilateral hands/forearms/lower legs/feet, WCC pt, bilateral leg edema, [place]. wounds right foot w/wound vac, ischemic cardiomyopathy/AICD, vtach, past medical record do cuments paroxysmal Afib/pt does not recall this, bilateral lower leg intermittent claudication/PAD, chronic renal disease stage III, anemia- transfusion in December per pt., bilateral tinnitis/SLEETMUTE, hypothyroidchronic renal disease stage III, anemia, bilateral tinnitis/SLEETMUTE, hypothyroid, arthritis bilateral hands with R hand worse, Last Myocardial Infarction Date:: 2006 History of Any Multi-Drug Resistant Organisms: None Reported Past Surgical History: AICD, Coronary Bypass/CABG, Heart Catheterization, Heart Catheterization With Stent, Pacemaker Additional Past Surgical History / Comment(s): PCI with one stent 1998, 2006 CABG 3 vessel and AICD, DFTs, aortagram with runoff, colonoscopy, bilateral c ataract removals/lens implants, multiple debridements of wounds, left bka Past Anesthesia/Blood Transfusion Reactions: No Reported Reaction Date of Last Stent Placement:: 1998 Type of Cardiac Device: Permanent Pacemaker, AICD Device Placement Date:: 2006 Past Psychological History: No Psychological Hx Reported Smoking Status: Former smoker Past Alcohol Use History: None Reported Past Drug Use History: None Reported - Past Family History Sister(s) Additional Family Medical History / Comment(s): Pt has a sister with COPD, another sister with diabetes/copd/htn and another sister with diabetes. Father Family Medical History: Myocardial Infarction (VT) Additional Family Medical History / Comment(s): Father of a VT at the age of 75 yrs. Brother(s) Family Medical History: Coronary Artery Disease (CAD), CVA/TIA, Diabetes Mellitus, Myocardial Infarction (VT) Additional Family Medical History / Comment(s): One brother had a VT at 38yrs and at age 48yrs. Another brother is alive and had a stroke. Mother Family Medical History: Diabetes Mellitus, Renal Disease Additional Family Medical History / Comment(s): Mother at age 62 from renal failure General Exam Limitations: physical limitation General appearance: alert, in no apparent distress Head exam: Present: atraumatic, normocephalic, normal inspection Eye exam: Present: normal appearance, PERRL, EOMI Pupils: Present: normal accommodation ENT exam: Present: normal exam, normal oropharynx, mucous membranes moist Neck exam: Present: normal inspection, full ROM. Absent: tenderness Respiratory exam: Present: normal lung sounds bilaterally. Absent: respiratory distress, wheezes, rales, rhonchi, stridor Cardiovascular Exam: Present: regular rate, normal rhythm, normal heart sounds. Absent: diastolic murmur Extremities exam: Present: full ROM. Absent: normal inspection (Left foot amputation. Right foot diabetic ulcers on the plantar aspect. The heel wound appears to be necrotic with some yellow discharge. Foul smell noted.), tenderness (Minimal tenderness at the wound site), pedal edema, joint swelling, calf tenderness Back exam: Present: normal inspection, full ROM. Absent: tenderness Neurological exam: Present: alert, oriented X3 Psychiatric exam: Present: normal affect, normal mood Skin exam: Present: warm, dry, intact, normal color Course Vital Signs 03/20/21 03/20/21 03/20/21 12:50 15:52 17:13 Temperature 97.9 F Pulse Rate 83 84 93 Respiratory 18 18 16 Rate Blood Pressure 92/60 116/63 135/68 O2 Sat by Pulse 98 99 95 Oximetry Medical Decision Making - Medical Decision Making 65-year-old male with history of chronic diabetic wounds on the right foot presents to emergency Department with a chief complaint of a foot infection. On physical examination, patient has multiple diabetic ulcers on the right foot. There is a definitive foul smell. Patient was given IV fluids and immediately started on vancomycin and Rocephin. Most recent wound cultures were reviewed with inpatient pharmacist who suggested these will be appropriate starting points. X-ray showed gas gangrene along with changes suggestive of osteoarthritis. Leukocytosis of 14.5. He is anemic at baseline. Also elevation BUN and creatinine. He will be started on IV fluids. He will be admitted for further medical management. I spoke with Dr. Granado who will admit. Case discussed with Dr. Nunez. Infectious disease on consult. - Lab Data Result diagrams: 03/20/21 15:05 03/20/21 15:05 Lab Results 03/20/21 03/20/21 03/20/21 Range/Units 15:05 15:05 15:05 WBC 14.5 H (3.8-10.6) k/uL RBC 4.13 L (4.30-5.90) m/uL Hgb 9.8 L D (13.0-17.5) gm/dL Hct 30.5 L (39.0-53.0) % MCV 74.0 L (80.0-100.0) fL MCH 23.6 L (25.0-35.0) pg MCHC 31.9 (31.0-37.0) g/dL RDW 15.1 (11.5-15.5) % Plt Count 429 (150-450) k/uL MPV 8.3 Neutrophils % 82 % Lymphocytes % 10 % Monocytes % 5 % Eosinophils % 2 % Basophils % 0 % Neutrophils # 12.0 H (1.3-7.7) k/uL Lymphocytes # 1.5 (1.0-4.8) k/uL Monocytes # 0.7 (0-1.0) k/uL Eosinophils # 0.2 (0-0.7) k/uL Basophils # 0.1 (0-0.2) k/uL Microcytosis Slight Sodium 133 L (137-145) mmol/L Potassium 5.0 (3.5-5.1) mmol/L Chloride 96 L (98-107) mmol/L Carbon Dioxide 29 (22-30) mmol/L Anion Gap 8 mmol/L BUN 49 H (9-20) mg/dL Creatinine 1.72 H (0.66-1.25) mg/dL Est GFR (CKD-EPI)AfAm 48 (>60 ml/min/1.73 sqM) Est GFR (CKD-EPI)NonAf 41 (>60 ml/min/1.73 sqM) Glucose 248 H (74-99) mg/dL Plasma Lactic Acid Gianluca 1.8 (0.7-2.0) mmol/L Calcium 8.7 (8.4-10.2) mg/dL Total Bilirubin 0.6 (0.2-1.3) mg/dL AST 26 (17-59) U/L ALT 12 (4-49) U/L Alkaline Phosphatase 105 (38-126) U/L Total Protein 6.7 (6.3-8.2) g/dL Albumin 2.9 L (3.5-5.0) g/dL Disposition Clinical Impression: Osteomyelitis, Diabetic foot ulcer Disposition: ADMITTED IP TO THIS HOSP Condition: Fair Is patient prescribed a controlled substance at d/c from ED?: No Referrals: Johny Granado MD [Primary Care Provider] - 1-2 days Time of Disposition: 17:29
[2021-03-20] MEDS ORDERED: VANCOMYCIN 1,500 MG in SODIUM CHLORIDE 0.9% 250 ML IVPB ONE (15:30)
[2021-03-20 15:47] LABS: Basophils # (A) 0.1 k/uL (0-0.2); Basophils % (A) 0 %; Eosinophils # (A) 0.2 k/uL (0-0.7); Eosinophils % (A) 2 %; HCT 30.5 % (39.0-53.0); Lymphocytes # (A) 1.5 k/uL (1.0-4.8); Lymphocytes % (A) 10 %; MCH 23.6 pg (25.0-35.0); MCHC 31.9 g/dL (31.0-37.0); Mean Platelet Volume 8.3; Microcytosis Slight; Monocytes # (A) 0.7 k/uL (0-1.0); Monocytes % (A) 5 %; Neutrophils % (A) 82 %; Platelet Count 429 k/uL (150-450); RBC 4.13 m/uL (4.30-5.90); RDW 15.1 % (11.5-15.5); WBC 14.5 k/uL (3.8-10.6)
[2021-03-20 16:07] LABS: Albumin 2.9 g/dL (3.5-5.0); Calcium 8.7 mg/dL (8.4-10.2); Total Bilirubin 0.6 mg/dL (0.2-1.3); Total Protein 6.7 g/dL (6.3-8.2)
[2021-03-20 16:08] LABS: HGB 9.8 gm/dL (13.0-17.5)
--- NOTE | 2021-03-20 16:23 | XR ---
EXAMINATION TYPE: XR foot complete RT DATE OF EXAM: 03/20/2021 COMPARISON: NONE HISTORY: 65-year-old male diabetic wounds, pain, rule out osteomyelitis. TECHNIQUE: 3 views FINDINGS: There is soft tissue air along the lateral forefoot extending to the mid foot. Osseous erosions cente red about the fourth and fifth MCP joints. There is additional osteal lysis at the base of the fifth metatarsal. Vascular calcifications compatible with diabetes. Generalized soft tissue swelling. IMPRESSION: 1. Gas gangrene/diabetic infection lateral forefoot to midfoot. 2. Additional findings compatible with osteomyelitis centered at the fourth and fifth MTP joints as w ell as the base of the fifth metatarsal.
[2021-03-20] MEDS ORDERED: MORPHINE SULFATE 4 MG/ML SYRINGE IV PRN (17:24)
[2021-03-20] MEDS ORDERED: LORazepam 2 MG/ML INJ IV PRN (17:24)
[2021-03-20] MEDS ORDERED: IBUPROFEN 400 MG TAB PO PRN (17:24)
[2021-03-20] MEDS ORDERED: NALOXONE 0.4 MG/ML 1 ML VIAL IV PRN (17:24)
[2021-03-20] MEDS ORDERED: ONDANSETRON 4 MG/2 ML VIAL IVP PRN (17:24)
[2021-03-20] MEDS: SODIUM CHLORIDE 0.9% 1,000 ML IV SCH (18:16)
[2021-03-20 20:27] LABS: Glucose,Whole Blood 273 mg/dL (75-99)
[2021-03-20] MEDS: LOSARTAN 50 MG TAB PO SCH (21:23)
[2021-03-20] MEDS: METOPROLOL TARTRATE 25 MG TAB PO SCH (21:23)
[2021-03-20] MEDS: FUROSEMIDE 40 MG TAB PO SCH (21:24)
[2021-03-20] MEDS: INSULIN ASPART (NovoLOG) 100 UNIT/ML VIAL SQ SCH (21:24)
[2021-03-20] MEDS: GABAPENTIN 100 MG CAP PO SCH (23:02)
[2021-03-21] MEDS: ACETAMINOPHEN TAB 325 MG TAB PO PRN (01:52)
[2021-03-21] MEDS: LEVOTHYROXINE 100 MCG TAB PO SCH (06:00)
[2021-03-21] MEDS: LEVOTHYROXINE 50 MCG TAB PO SCH (06:00)
[2021-03-21 07:10] LABS: Glucose,Whole Blood 230 mg/dL (75-99)
[2021-03-21] MEDS: SODIUM CHLORIDE 0.9% 1,000 ML IV SCH ×2 (07:49→20:52)
[2021-03-21] MEDS: ASPIRIN 81 MG PO SCH (07:50)
[2021-03-21] MEDS: FOLIC ACID 1 MG TAB PO SCH (07:50)
[2021-03-21] MEDS: FENOFIBRATE 160 MG TAB PO SCH (07:50)
[2021-03-21] MEDS: LOSARTAN 50 MG TAB PO SCH (07:50)
[2021-03-21] MEDS: GABAPENTIN 100 MG CAP PO SCH ×3 (07:50→20:53)
[2021-03-21] MEDS: INSULIN ASPART (NovoLOG) 100 UNIT/ML VIAL SQ SCH ×4 (07:52→20:57)
[2021-03-21] MEDS ORDERED: ATORVASTATIN 40 MG TAB PO SCH (09:00)
[2021-03-21] MEDS ORDERED: VANCOMYCIN 1,500 MG in SODIUM CHLORIDE 0.9% 250 ML IVPB SCH (09:00)
[2021-03-21] MEDS: METOPROLOL TARTRATE 25 MG TAB PO SCH (09:40)
[2021-03-21 12:09] LABS: Glucose,Whole Blood 249 mg/dL (75-99)
[2021-03-21] MEDS: FUROSEMIDE 40 MG TAB PO SCH (12:48)
[2021-03-21] MEDS ORDERED: DAPTOmycin 500 MG in SODIUM CHLORIDE 0.9% 50 ML IVPB SCH (13:00)
--- NOTE | 2021-03-21 13:52 | CONS ---
CONSULTATION DATE OF SERVICE: 03/21/2021 REASON FOR FOLLOWUP: 1. Right foot infection. 2. Bacteremia. HISTORY OF PRESENT ILLNESS: The patient is a 65-year-old, male with a past medical history significant for diabetic foot infection requiring amputation of his left leg. The patient also has a wound on his right foot lateral border for which the patient underwent care at [facility]. The patient did mention about a week ago he noticed to have a dusky appearance to his right fifth toe. He did ask the [facility] to look at it. He was told was no infection and was advised to keep an eye on it. The patient mentions within 2 days the area started becoming more discolored and he went to the [facility] yesterday. He did have necrotic right fifth toe and with some purulent drainage. The patient has been complaining of some pain. However, he did have neuropathy and did not have significant sensation right foot area, more of a dull aching pressure sensation and some drainage, but no foul smelling. With these symptoms, the patient was evaluated by the ER physician. On arrival to the ER, the patient was afebrile. This morning the patient did spike a fever of 100 degrees Fahrenheit. The patient did have white count of 14.5, creatinine 1.63. CRP is 8.0. He did have blood cultures drawn which came back positive with Gram-positive cocci. The patient is currently being treated with vancomycin. Infectious Disease was consulted for further management of antibiotic therapy. REVIEW OF SYSTEMS: Positive points have been mentioned in HPI. Rest of the systems are negative. PAST MEDICAL HISTORY: Heart failure, diabetes mellitus, diabetic foot infection, hyperlipidemia, hypertension, MN, osteoarthritis, renal insufficiency. PAST SURGICAL HISTORY: AICD placement, coronary artery bypass grafting, heart catheterization with stent, pacemaker placement, left leg amputation. SOCIAL HISTORY: Remote history of smoking. No drinking or drug use. FAMILY HISTORY: Father with history of MN. Brother history of coronary artery disease. ALLERGIES: No known drug allergies. MEDICATIONS: The patient is currently on Tylenol, [place], aspirin, Lipitor, fenofibrate, folic acid, Lasix, Neurontin, Motrin, NovoLog, Synthroid, Cozaar, vancomycin, pharmacy to dose. PHYSICAL EXAMINATION: Blood pressure 107/54 with a pulse of 81, temperature of 100. He is 95% on room air. General description is a middle-aged male lying in bed in no distress. No tachypnea or accessory muscles of respiration use. HEENT: Examination shows pallor. No scleral icterus. Oral mucous membranes dry. NECK: Trachea central. No thyromegaly. LUNGS unlabored breathing. Clear to auscultation anteriorly. No wheeze or crackles. HEART S1, S2. Regular rate and rhythm. ABDOMEN: Soft, no tenderness. No guarding. No rigidity. EXTREMITIES: . Examination of the right foot lateral border did have a wound with necrotic right fifth toe with purulent drainage has been cultured. NEUROLOGICAL: Patient is awake, alert, oriented times three. Mood and affect normal. LABS: Hemoglobin is 9.8, white count 14.5. His BUN is 49, creatinine is 1.72. Electrolytes have been normal. Blood culture with Gram-positive cocci. The patient did have x-rays of the foot with concerning for diabetic foot infection. DIAGNOSTIC IMPRESSION AND PLAN: 1. Patient presented to hospital with right diabetic foot infection with gangrene of the right fifth toe with purulent drainage. No evidence of gram-positive cocci. Likely cover secondary to MRSA or gram-positive skin chano with evidence of gram infection need to cover for the anaerobes in addition to the gram-positive that has been growing in the cultures. 2. Patient does have renal insufficiency and high risk of nephrotoxicity with vancomycin. PLAN: 1. The patient meeds vascular surgery evaluation JOYCE for evaluation and debridement and possible amputation and deep cultures. 2. Discontinue vancomycin. 3. Start the patient on daptomycin 6 mg/kg and clindamycin. 4. We will follow on clinical condition and culture to further adjust medication if needed. Thank you for this consultation. We will follow this patient along with you. MMODL / IJN: [id number] /
[2021-03-21 14:36] VITALS: BMI 30.7
[2021-03-21] MEDS: CLINDAMYCIN 900 MG in DEXTROSE 5% IN WATER 50 ML IVPB SCH ×2 (15:58)
--- NOTE | 2021-03-21 16:32 | HP ---
HISTORY AND PHYSICAL DATE OF SERVICE: 03/21/2021. I am covering for Dr. Granado. CHIEF COMPLAINTS: Diabetic foot ulcers on the right leg. HISTORY OF PRESENT ILLNESS: This 65-year-old gentleman with a past medical history of multiple medical problems including CHF, history of diabetes type 2, history of GERD, hard of hearing, hypertension, hyperlipidemia, history of myocardial infarction, being followed Dr. Johny Granado in the outpatient setting recently underwent left below -knee amputation by Dr. Ross and as well as Dr. Armenta. The patient was also attending wound care clinic also with wound VAC. The patient had some infection previously and the wound care prior to surgery was grown strep agalactiae and multiple organisms, but recent cultures are negative at this time. The patient is currently complaining of severe ulceration on the left foot multiple with foul smelling and the patient came to [facility]. Osteomyelitis is strongly suspected. Dr. Bustamante and Dr. Armenta are following the patient closely. There is no history of fever, rigors. No history of headache, loss of consciousness or seizures at this time. PAST MEDICAL HISTORY: History of CHF, history of diabetes type 2, history of GERD, hard of hearing, hypertension, hyperlipidemia. MEDICATIONS: Home medications are: Neurontin 100 mg p.o. t.i.d., metoprolol 75 mg p.o. daily, losartan 50 mg p.o. daily, Synthroid 250 mcg p.o. daily, Insulin QV pen, Toujeo 20 units subcu q.h.s., Manning 5 mg q.4h p.r.n., Lasix 40 mg p.o. daily. Folic acid 1 mg daily. Fenofibrate 160 mg p.o. daily. Trulicity 3 mg q.h.s. Lipitor 40 mg. Aspirin 81 mg p.o. daily. ALLERGIES: None. FAMILY HISTORY: History of myocardial infarction in the family. SOCIAL HISTORY: Previous history of smoking. No history of current smoking or alcohol intake. REVIEW OF SYSTEMS: ENT: Diminished vision. Diminished hearing. CARDIOVASCULAR: No angina or palpitations. RESPIRATION: No cough. No hemoptysis. GI: No nausea or vomiting. : No dysuria. NERVOUS SYSTEM: No numbness or weakness. ALLERGY/IMMUNOLOGY: No asthma or hayfever. MUSCULOSKELETAL as mentioned earlier. HEMATOLOGY/ONCOLOGY: No history of anemia. ENDOCRINE: As mentioned earlier. CONSTITUTIONAL: As mentioned earlier. DERMATOLOGY: As mentioned earlier. RHEUMATOLOGY negative. PSYCHIATRY as mentioned earlier. PHYSICAL EXAMINATION: Alert and oriented times three. Pulse 65, blood pressure 79/45, respiration 16, temperature 98.2, pulse ox 98 percent on room air. T-max 100 degrees. HEENT: Conjunctivae normal. NECK: No JVD. CARDIOVASCULAR: S1, S2 muffled. RESPIRATORY: Breath sounds diminished in the bases. A few scattered rhonchi. ABDOMEN: Soft. Nontender. LEGS status post left below -knee amputation and right leg ulcers, foot ulcers also present. NERVOUS SYSTEM: Higher functions as mentioned earlier. Moves all 4 limbs. No focal motor or sensory deficits. LYMPHATICS: No lymph nodes palpable in the neck, axillae or groin. SKIN: No ulcers, rashes or bleeding. JOINTS: No active deforming arthropathy. LABS: Glucose 232, 249. Covid 19 is negative. WBC 14, hemoglobin 9.8. Creatinine is 1.72. ASSESSMENT: 1. Acute right diabetic foot wound with possible sepsis, rule out osteomyelitis. 2. History of recent left below-knee amputation, rule out stump infection. 3. Increased WBC. 4. Anemia, macrocytic. 5. Hyponatremia. 6. Increased creatinine with acute renal failure, acute tubular necrosis. 7. Chronic kidney stage 3 baseline. 8. Diabetes mellitus type 2 uncontrolled with hyperglycemia. 9. Hypoalbuminemia with mild to moderate protein calorie malnutrition. 10.History of congestive heart failure. 11.History of diabetes type 2. 12.History of gastroesophageal reflux disease. 13.Hard of hearing. 14.Hypertension. 15.Hyperlipidemia. 16.Myocardial infarction. 17.History of degenerative joint disease. 18.Hypothyroidism. 19.History of peripheral neuropathy. 20.History of AICD. 21.History of atrial fibrillation. 22.History of peripheral vascular disease. 23.History of anemia. 24.History of hypothyroidism. 26.History of degenerative joint disease. 27.History of AICD. 28.History of coronary artery disease, coronary artery bypass grafting/stent. 29.History of AICD. 30.Remote history of nicotine dependence. 31.Obesity with body mass index of 30.8. 32.FULL CODE. RECOMMENDATIONS AND DISCUSSION: This 65-year-old gentleman who presented with multiple complex medical issues, we will monitor the patient closely. Continue the current medications, management and broad- spectrum IV antibiotics. Follow the cultures. I would also recommend a bone scan to complete the workup. Otherwise, surgical debridement with surgery. Prognosis guarded because of multiple complex medical issues. Further recommendations to follow. MMODL / IJN: [id number] / MTDD
[2021-03-21 16:52] LABS: Glucose,Whole Blood 223 mg/dL (75-99)
[2021-03-21 18:30] LABS: Appearance,Urine Turbid (Clear); Bacteria,Urine Few /hpf; Bilirubin,Urine Negative (Negative); Blood,Urine Moderate (Negative); Color,Urine Yellow; Glucose,Urine (UA) 1+ (Negative); Hyaline Casts,Urine 11 /lpf (0-2); Ketones,Urine Negative (Negative); Leukocyte Esterase,Urine Large (Negative); Mucus,Urine Occasional /hpf; Nitrite,Urine Negative (Negative); PH, Urine 5.5 (5.0-8.0); Protein,Urine 1+ (Negative); RBC,Urine 13 /hpf (0-5); Specific Gravity,Urine 1.018 (1.001-1.035); Urobilinogen,Urine <2.0 mg/dL (<2.0); WBC,Urine >182 /hpf (0-5)
[2021-03-21 20:43] LABS: Glucose,Whole Blood 250 mg/dL (75-99)
[2021-03-21] MEDS: CEFEPIME 2 GM in SODIUM CHLORIDE 0.9% 100 ML IVPB SCH (20:51)
[2021-03-21] MEDS ORDERED: INSULIN DETEMIR (LEVEMIR) 100 UNIT/ML SYR SQ SCH (21:00)
[2021-03-22] MEDS: CLINDAMYCIN 900 MG in DEXTROSE 5% IN WATER 50 ML IVPB SCH ×6 (02:20→17:27)
[2021-03-22] MEDS: CEFEPIME 2 GM in SODIUM CHLORIDE 0.9% 100 ML IVPB SCH ×2 (04:49→11:31)
[2021-03-22] MEDS: LEVOTHYROXINE 100 MCG TAB PO SCH (05:48)
[2021-03-22] MEDS: LEVOTHYROXINE 50 MCG TAB PO SCH (05:48)
[2021-03-22 07:13] LABS: African American GFR (CKD) 54 (>60 ml/min/1.73 sqM); Anion Gap 5 mmol/L; Blood Urea Nitrogen 48 mg/dL (9-20); Calcium 7.6 mg/dL (8.4-10.2); Carbon Dioxide 28 mmol/L (22-30); Chloride 104 mmol/L (98-107); Glucose 129 mg/dL (74-99); Non-African American GFR(CKD) 47 (>60 ml/min/1.73 sqM); Potassium 4.4 mmol/L (3.5-5.1); Sodium 137 mmol/L (137-145)
[2021-03-22 07:30] LABS: Glucose,Whole Blood 140 mg/dL (75-99)
[2021-03-22] MEDS: FUROSEMIDE 40 MG TAB PO SCH (07:30)
[2021-03-22] MEDS: ASPIRIN 81 MG PO SCH (07:30)
[2021-03-22] MEDS: FENOFIBRATE 160 MG TAB PO SCH (07:31)
[2021-03-22] MEDS: INSULIN ASPART (NovoLOG) 100 UNIT/ML VIAL SQ SCH ×4 (07:31→20:20)
[2021-03-22] MEDS: GABAPENTIN 100 MG CAP PO SCH ×3 (07:31→20:21)
[2021-03-22] MEDS: METOPROLOL TARTRATE 25 MG TAB PO SCH (07:31)
[2021-03-22] MEDS: LOSARTAN 50 MG TAB PO SCH (07:31)
[2021-03-22] MEDS: FOLIC ACID 1 MG TAB PO SCH (07:31)
[2021-03-22] MEDS: SODIUM CHLORIDE 0.9% 1,000 ML IV SCH (07:32)
[2021-03-22 09:12] LABS: C Reactive Protein 14.2 mg/dL (<1.0)
[2021-03-22 09:19] LABS: Basophils # (A) 0.05 X 10*3/uL (0.00-0.10); Basophils % (A) 0.4 %; Eosinophils # (A) 0.37 X 10*3/uL (0.04-0.35); Eosinophils % (A) 2.9 %; HCT 23.5 % (39.6-50.0); HGB 7.2 g/dL (13.0-17.0); Lymphocytes # (A) 1.98 X 10*3/uL (0.90-5.00); Lymphocytes % (A) 15.8 %; MCH 23.8 pg (27.0-32.0); MCHC 30.6 g/dL (32.0-37.0); MCV 77.8 fL (80.0-97.0); Mean Platelet Volume 10.7 fL (9.5-12.2); Monocytes # (A) 1.15 X 10*3/uL (0.20-1.00); Monocytes % (A) 9.1 %; Neutrophils # (A) 8.95 X 10*3/uL (1.80-7.70); Neutrophils % (A) 71.2 %; Platelet Count 381 X 10*3/uL (140-440); RBC 3.02 X 10*6/uL (4.40-5.60); RDW 16.2 % (11.5-14.5); WBC 12.57 X 10*3/uL (4.50-10.00)
[2021-03-22 11:40] LABS: Glucose,Whole Blood 92 mg/dL (75-99)
--- NOTE | 2021-03-22 12:51 | CDI ---
Documentation Clarification Form Date: 03/22/2021 12:35:21 PM From: Echo Irving RN CCDS Admit Date: 03/20/2021 05:14:00 PM Patient Name: Cruz Sorenson V Visit Number: [id number] Discharge Date: ATTENTION: The Clinical Documentation Specialists (CDI) and [facility] Coding Staff appreciate your assistance in clarifying documentation. Please respond to the clarification below the line at the bottom and electronically sign. The CDI & [facility] Coding staff will review the response and follow-up if needed. Please note: Queries are made part of the Legal Health Record. If you have any questions, please contact the author of this message via ITS. Dr. Diaz, Your patient has the documented diagnosis of unspecified CHF 03/21 in H&P. Additional information regarding the type, acuity of CHF is requested. History/Risk Factors: 65-year-old male presents to the ED for severe ulceration of the left foot that is foul smelling. Medical History: CHF; DM2 and HTN. H&P 03/21. Clinical Indicators: VS/Pulse OX: 03/20 B/P 92/60; HR 93; Temp 97.9 F Oral; RR 18; SpO2 98% ra Cardiology Consult 12/22: Echo 08/29/20 EF 50-55%. Diastolic function indicates normal diastolic function. Treatment: 03/20 Lasix 40mg PO Daily VICK to current; 03/20 Lopressor 75mg PO Daily VICK to current. In your professional opinion, can you please clarify the acuity and type of CHF if known? [ ] Chronic Diastolic Heart Failure (preserved EF) [ ] Other, please specify [ ] Unable to determine (Template Last Revised: October 2020) Cannot speak for other physicians documentation. My impression is as per my documentation only. MTDD
--- NOTE | 2021-03-22 13:22 | CDI ---
Documentation Clarification Form Date: 03/22/2021 12:55:57 PM From: Echo Irving RN CCDS Admit Date: 03/20/2021 05:14:00 PM Patient Name: Cruz Sorenson V Visit Number: [id number] Discharge Date: ATTENTION: The Clinical Documentation Specialists (CDI) and [facility] Coding Staff appreciate your assistance in clarifying documentation. Please respond to the clarification below the line at the bottom and electronically sign. The CDI & [facility] Coding staff will review the response and follow-up if needed. Please note: Queries are made part of the Legal Health Record. If you have any questions, please contact the author of this message via ITS. Dr. Diaz, Mild to Moderate Malnutrition is documented 03/21 H&P. Additional clarification regarding the severity of malnutrition is requested. History/Risk Factors: 65-year-old male presents to the ED for multiple ulceration of the left foot that is foul smelling. Medical History: CHF; DM2; CKD; HTN and recent Left below the knee amputation with infection. H&P 03/21. Clinical Indicators: Hypoalbuminemia with mild to moderate protein calorie malnutrition. 03/21 H&P Lab: 03/20 Albumin 2.9 Current BMI: 30.7kg RD Consult Assessment: Appetite: Fair, duration 3-6 months. Diet prior to admission no taste for four months, decreased appetite. Nutritional Assessment: Diet Consistent carb. Physical findings: Overweight, hypermetabolism wounds: Stage 2 pressure ulcer on right heel, right bilateral foot right dorsal foot and toe. Estimated Nutritional Needs in Kcals: Weight used to Estimate Nutritional Needs: [place] Body Weight. Energy Formula for estimated Nutritional Needs: 25-30 Kcals/Kg. Energy Needs (Kcal) 5991-4092. KCAL Comment CHO: 221 Grams. Estimated Protein needs: Weight used to Estimate Protein Needs. Estimated Protein range (grams/kg) 2.0; Estimated protein needs (grams/day) 129. Estimated Fluid Needs: Fluid Formula: 1ml/Kcal; Estimated fluid needs (mls/day): 7771-2084. Nutritional Diagnosis: Malnutrition severe, acute. Treatment: Dietary Consult: see above Supplements: Glucerna Once daily and Gerardo BID. Lab monitoring: blood glucose Other: po intake; po supplement intake. Please clarify the type of malnutrition, if known: [ ] Mild Protein-Calorie Malnutrition [ ] Moderate Protein-Calorie Malnutrition [ ] Severe Protein-Calorie Malnutrition [ ] Other condition, please specify [ ] Unable to Determine (Template Last Revised: November 2020) No malnutrition MTDD
[2021-03-22 13:29] LABS: Erythrocyte Sedimentation Rate 106 mm/Hr (0-20)
[2021-03-22] MEDS ORDERED: SODIUM CHLORIDE 0.9% 500 ML IV ONE (13:42)
[2021-03-22 13:51] LABS: Glucose,Whole Blood 74 mg/dL (75-99)
[2021-03-22] MEDS ORDERED: DEXTROSE 50% SYRINGE 50 ML IVP ONE (13:56)
[2021-03-22] MEDS ORDERED: fentaNYL (PF) 50 MCG/ML 2 ML AMP ONE (14:16)
[2021-03-22] MEDS ORDERED: ePHEDrine SULFATE/0.9% NACL/PF 50 MG/5 ML SYRINGE IV ONE (14:16)
[2021-03-22] MEDS ORDERED: PHENYLEPHRINE-0.9% NACL SYG 1,000 MCG/10 ML SYRINGE ONE (14:16)
[2021-03-22] MEDS ORDERED: PROPOFOL 10 MG/ML 20 ML VIAL IV ONE (14:16)
[2021-03-22] MEDS ORDERED: LIDOCAINE 1% INJ 10MG/ML (20 ML MDV) ONE (14:16)
[2021-03-22] MEDS ORDERED: MIDAZOLAM 2 MG/2 ML VIAL ONE (14:16)
[2021-03-22] MEDS ORDERED: SUCCINYLCHOLINE CHLORIDE 100 MG/5 ML SYR IV ONE (14:16)
[2021-03-22] MEDS ORDERED: IV FLUID CONTINUATION 1,000 ML IV ONE (14:18)
--- NOTE | 2021-03-22 14:28 | P.GSCN ---
History of Present Illness Consult date: 03/21/21 Reason for Consult: Osteomyelitis right foot History of present illness: Disease 65-year-old white male with a past medical history of type 2 diabetes, peripheral arterial disease, peripheral neuropathy, heart failure, hyperlipidemia and hypertension. He has had a significant history of nonhealing wounds to his lower extremities. He recently underwent a left below the knee amputation on February [address] Armenta. He has had multiple debridements of the right foot. He has continued follow-up with the wound care center with Dr. Grey for his right foot wounds and was sent to the emergency department for further evaluation and IV antibiotics.. He states he saw Dr. Ross approximately 2 weeks ago where he removed his sharee of the left stump. He then states he was getting in the car to go to the wound care center and part of the incision line opened and was bleeding. He now has a wound VAC to the left stump. He states he has fevers off-and-on at night. He denies any pain to his right lower extremity. He has a foul odor. He denies any chest pain, shortness of breath, abdominal pain, nausea or vomiting. X-ray of right foot shows gas gangrene/diabetic infection lateral forefoot and midfoot. Additional findings compatible with osteomyelitis centered at the fourth and fifth MTP joints as well as the base of the fifth metatarsal. 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 Review of Systems A 14 point review of systems was completed all pertinent positives and negatives as stated in the HPI. Past Medical History Past Medical History: Heart Failure, Diabetes Mellitus, Diabetes Mellitus, Eye Disorder, GERD/Reflux, Hearing Disorder / Deafness, Hyperlipidemia, Hypertension, Myocardial Infarction (AK), Osteoarthritis (OA), Renal Disease, Skin Disorder, Thyroid Disorder Additional Past Medical History / Comment(s): IDDM type II, neuropathy bilateral hands/forearms/lower legs/feet, WCC pt, bilateral leg edema, [place]. wounds right foot w/wound vac, ischemic cardiomyopathy/AICD, vtach, past medical record documents paroxysmal Afib/pt does not recall this, bilateral lower leg intermittent claudication/PAD, chronic renal disease stage III, anemia- transfusion in December per pt., bilateral tinnitis/[place], hypothyroidchronic renal disease stage III, anemia, bilateral tinnitis/[place]IK, hypothyroid, arthritis bilateral hands with R hand worse, Last Myocardial Infarction Date:: 2006 History of Any Multi-Drug Resistant Organisms: None Reported Past Surgical History: AICD, Coronary Bypass/CABG, Heart Catheterization, Heart Catheterization With Stent, Pacemaker Additional Past Surgical History / Comment(s): PCI with one stent 1998, 2006 CABG 3 vessel and AICD, DFTs, aortagram with runoff, colonoscopy, bilateral cataract removals/lens implants, multiple debridements of wounds, left bka Past Anesthesia/Blood Transfusion Reactions: No Reported Reaction Date of Last Stent Placement:: 1998 Type of Cardiac Device: Permanent Pacemaker, AICD Device Placement Date:: 2006 Past Psychological History: No Psychological Hx Reported Additional Psychological History / Comment(s): Pt resides with his spouse. currently non-weight bearing both feet & using wheelchair Smoking Status: Former smoker Past Alcohol Use History: None Reported Additional Past Alcohol Use History / Comment(s): STARTED SMOKING AT AGE 17 QUIT 2006 SMOKED 1 1/2 PPD Past Drug Use History: None Reported - Past Family History Sister(s) Additional Family Medical History / Comment(s): Pt has a sister with COPD, another sister with diabetes/copd/htn and another sister with diabetes. Father Family Medical History: Myocardial Infarction (AK) Additional Family Medical History / Comment(s): Father of a AK at the age of 75 yrs. Brother(s) Family Medical History: Coronary Artery Disease (CAD), CVA/TIA, Diabetes Mellitus, Myocardial Infarction (AK) Additional Family Medical History / Comment(s): One brother had a AK at 38yrs and at age 48yrs. Another brother is alive and had a stroke. Mother Family Medical History: Diabetes Mellitus, Renal Disease Additional Family Medical History / Comment(s): Mother at age 62 from renal failure Medications and Allergies Home Medications Medication Instructions Recorded Confirmed Type Fenofibrate 160 mg PO DAILY 03/31/14 03/20/21 History Insulin Lispro [humaLOG Kwikpen] See Protocol SQ ACHS PRN 03/31/14 03/20/21 History Losartan Potassium 50 mg PO DAILY 03/31/14 03/20/21 History Atorvastatin [Lipitor] 40 mg PO DAILY 05/24/20 03/20/21 History Levothyroxine Sodium [Synthroid] 50 mcg PO DAILY 05/24/20 03/20/21 History Levothyroxine Sodium [Synthroid] 200 mcg PO DAILY 05/24/20 03/20/21 History Metoprolol Tartrate 75 mg PO DAILY 05/24/20 03/20/21 History Dulaglutide [Trulicity] 3 mg SQ TH 11/30/20 03/20/21 History Furosemide [Lasix] 40 mg PO DAILY 11/30/20 03/20/21 History Aspirin 81 mg PO DAILY 90 Days #90 chew 12/16/20 03/20/21 Rx Folic Acid 1 mg PO DAILY 90 Days #90 tab 12/27/20 03/20/21 Rx HYDROcodone/APAP 5-325MG [[place] 1 each PO Q4HR PRN 3 Days #18 tab 02/21/21 03/20/21 Rx 5-325] Gabapentin [Neurontin] 100 mg PO TID 30 Days #90 cap 02/23/21 03/20/21 Rx Insulin Glargine,Hum.rec.anlog 20 unit SQ HS 03/20/21 03/20/21 History [Sofia Fajardo] Allergies Allergy/AdvReac Type Severity Reaction Status Date / Time No Known Allergies Allergy Verified 03/20/21 18:45 Surgical - Exam Vital Signs Temp Pulse Resp BP Pulse Ox 97.9 F 83 18 92/60 98 03/20/21 12:50 03/20/21 12:50 03/20/21 12:50 03/20/21 12:50 03/20/21 12:50 General appearance: The patient is alert, oriented, appears in no acute distress. HET: Head is normocephalic and atraumatic. Neck: Supple without lymphadenopathy. Trachea midline. Heart: S1 S2. Regular rate and rhythm. Lungs: Her to auscultation. Abdomen: Soft, nontender, nondistended. Extremities: Left below the knee amputation with wound VAC. Right lower extremity with edema, fifth toe with gangrene, malodorous, lateral side of forefoot with a approximate 7 cm x 4 cm wound with bleeding, heel with a 4 x 4 pressure wound. Palpable femoral pulse. Multiphasic popliteal signal, monophasic dorsalis pedis signal, unable to obtain a posterior tibialis signal. Neurological: No focal deficits. Alert and oriented 3. Results - Labs 03/20/21 15:05 03/21/21 06:31 Abnormal Lab Results - Last 24 Hours (Table) 03/20/21 03/20/21 03/20/21 Range/Units 15:05 15:05 16:35 WBC 14.5 H (3.8-10.6) k/uL RBC 4.13 L (4.30-5.90) m/uL Hgb 9.8 L D (13.0-17.5) gm/dL Hct 30.5 L (39.0-53.0) % MCV 74.0 L (80.0-100.0) fL MCH 23.6 L (25.0-35.0) pg Neutrophils # 12.0 H (1.3-7.7) k/uL Sodium 133 L (137-145) mmol/L Chloride 96 L (98-107) mmol/L BUN 49 H (9-20) mg/dL Creatinine 1.72 H (0.66-1.25) mg/dL Glucose 248 H (74-99) mg/dL POC Glucose (mg/dL) (75-99) mg/dL C-Reactive Protein 8.0 H (<1.0) mg/dL Albumin 2.9 L (3.5-5.0) g/dL 03/20/21 03/21/21 03/21/21 Range/Units 20:26 06:31 07:09 WBC (3.8-10.6) k/uL RBC (4.30-5.90) m/uL Hgb (13.0-17.5) gm/dL Hct (39.0-53.0) % MCV (80.0-100.0) fL MCH (25.0-35.0) pg Neutrophils # (1.3-7.7) k/uL Sodium (137-145) mmol/L Chloride (98-107) mmol/L BUN (9-20) mg/dL Creatinine 1.63 H (0.66-1.25) mg/dL Glucose (74-99) mg/dL POC Glucose (mg/dL) 273 H 230 H (75-99) mg/dL C-Reactive Protein (<1.0) mg/dL Albumin (3.5-5.0) g/dL 03/21/21 Range/Units 12:08 WBC (3.8-10.6) k/uL RBC (4.30-5.90) m/uL Hgb (13.0-17.5) gm/dL Hct (39.0-53.0) % MCV (80.0-100.0) fL MCH (25.0-35.0) pg Neutrophils # (1.3-7.7) k/uL Sodium (137-145) mmol/L Chloride (98-107) mmol/L BUN (9-20) mg/dL Creatinine (0.66-1.25) mg/dL Glucose (74-99) mg/dL POC Glucose (mg/dL) 249 H (75-99) mg/dL C-Reactive Protein (<1.0) mg/dL Albumin (3.5-5.0) g/dL Microbiology - Last 24 Hours (Table) 03/20/21 15:05 Blood Culture Gram Stain - Preliminary Blood 03/20/21 14:45 Blood Culture Gram Stain - Preliminary Blood 03/20/21 15:05 Blood Culture - Final Blood 03/20/21 14:45 Blood Culture - Final Blood Diabetes panel 03/20/21 03/21/21 Range/Units 15:05 06:31 Sodium 133 L (137-145) mmol/L Potassium 5.0 (3.5-5.1) mmol/L Chloride 96 L (98-107) mmol/L Carbon Dioxide 29 (22-30) mmol/L BUN 49 H (9-20) mg/dL Creatinine 1.72 H 1.63 H (0.66-1.25) mg/dL Glucose 248 H (74-99) mg/dL Calcium 8.7 (8.4-10.2) mg/dL AST 26 (17-59) U/L ALT 12 (4-49) U/L Alkaline Phosphatase 105 (38-126) U/L Total Protein 6.7 (6.3-8.2) g/dL Albumin 2.9 L (3.5-5.0) g/dL Calcium panel 03/20/21 Range/Units 15:05 Calcium 8.7 (8.4-10.2) mg/dL Albumin 2.9 L (3.5-5.0) g/dL Pituitary panel 03/20/21 03/21/21 Range/Units 15:05 06:31 Sodium 133 L (137-145) mmol/L Potassium 5.0 (3.5-5.1) mmol/L Chloride 96 L (98-107) mmol/L Carbon Dioxide 29 (22-30) mmol/L BUN 49 H (9-20) mg/dL Creatinine 1.72 H 1.63 H (0.66-1.25) mg/dL Glucose 248 H (74-99) mg/dL Calcium 8.7 (8.4-10.2) mg/dL Adrenal panel 03/20/21 03/21/21 Range/Units 15:05 06:31 Sodium 133 L (137-145) mmol/L Potassium 5.0 (3.5-5.1) mmol/L Chloride 96 L (98-107) mmol/L Carbon Dioxide 29 (22-30) mmol/L BUN 49 H (9-20) mg/dL Creatinine 1.72 H 1.63 H (0.66-1.25) mg/dL Glucose 248 H (74-99) mg/dL Calcium 8.7 (8.4-10.2) mg/dL Total Bilirubin 0.6 (0.2-1.3) mg/dL AST 26 (17-59) U/L ALT 12 (4-49) U/L Alkaline Phosphatase 105 (38-126) U/L Total Protein 6.7 (6.3-8.2) g/dL Albumin 2.9 L (3.5-5.0) g/dL - Imaging Comments: X-ray of right foot: Gas gangrene/diabetic infection lateral forefoot to midfoot. Additional findings compatible with osteomyelitis center at the fourth and fifth MTP joints as well as the base of the fifth metatarsal. Assessment and Plan Assessment: 1. Chronic nonhealing wounds to right lower extremity with previous debridement 2. Gangrene of right fifth toe 3. Peripheral arterial disease 4. History of recent left below the knee amputation 5. Type 2 diabetes 6. Peripheral neuropathy 7. History of heart failure 8. Hypertension 9. Hyperlipidemia Plan: 1. Continue IV antibiotics 2. Continue with local wound care 3. X-ray reviewed 4. Discussed need for surgical intervention with the patient, he prefers to proceed with a left [id number] amputation if he requires further debridement or transmetatarsal amputation 5. Discussed with Dr. Armenta, Dr. Armenta will discuss further with patient in moving forward with surgical intervention. Further recommendations to follow Thank you for this consultation and allowing us take part in the plan of care of your patient during his hospital stay. The impression and plan of care has been dictated as directed. Dr. Armenta I performed a history and examination of this patient, discussed the same with the dictator. I agree with the dictator's note ,documented as a scribe. Any additional findings or plans will be noted.
--- NOTE | 2021-03-22 14:29 | P.PN ---
Progress Note - Text Progress Note Date: 03/22/21 Lungs discussion had with the patient today regarding need for intervention. He states that he does not want to go through the multiple interventions and wound care as he had the other lower extremity he would rather go forward below-knee amputation rather than maintaining this go round. We discussed that if for some reason there is amenable amounts of tissue and a small wound to local wound care may consider above plan to do a below-knee amputation per his request at this time
[2021-03-22] MEDS ORDERED: LACTATED RINGERS 1,000 ML IV ONE (14:57)
[2021-03-22] MEDS ORDERED: ceFAZolin 2,000 MG in SODIUM CHLORIDE 0.9% 500 ML IRRIGATION ONE (15:00)
[2021-03-22] MEDS ORDERED: SODIUM CHLORIDE 0.9% 500 ML 500 ML IV ONE (15:51)
--- NOTE | 2021-03-22 16:21 | NM ---
EXAMINATION TYPE: NM bone 3 phase DATE OF EXAM: 03/22/2021 COMPARISON: Plain film 03/20/2021 HISTORY: Diabetic wounds, osteomyelitis Dual phase bone scintigraphy was performed following the injection of 25.0 mCi Tc 99m MDP. Immediate images and clinician canceled delayed images. FINDINGS: Blood flow and blood pool images are equally increased to the right foot. IMPRESSION: Plain film is consistent with osteomyelitis. Incomplete three-phase bone scan.
[2021-03-22 16:24] LABS: Glucose,Whole Blood 117 mg/dL (75-99)
[2021-03-22] MEDS ORDERED: HYDROcodone/APAP 7.5-325MG 1 EACH TAB PO PRN (17:21)
--- NOTE | 2021-03-22 17:29 | P.PN ---
Subjective Patient is admitted for right foot infection gangrene and osteomyelitis of the right foot. Patient is undergoing a right below-knee amputation today. was admitted for sepsis secondary to right foot gangrene. Patient is presently on cefepime, clindamycin. Patient's creatinine is around 1.5 Motrin will be discontinued will discuss reviewed Lasix as well. Morphine will be switched to [place]. We'll hold off on losartan and continue with IV fluids. Constitutional: Denied any fatigue denied any fever. Cardio vascular: denied any chest pain, palpitations Gastrointestinal denied any nausea vomiting Pulmonary: Denied any shortness of breath cough Neurologic denied any new focal deficits All inpatient medications were reviewed and appropriate changes in these medications as dictated in the interval history and assessment and plan. PHYSICAL EXAMINATION: GENERAL: The patient is alert and oriented x3, not in any acute distress. Well developed, well nourished. HEENT: Pupils are round and equally reacting to light. EOMI. No scleral icterus. No conjunctival pallor. Normocephalic, atraumatic. No pharyngeal erythema. No thyromegaly. CARDIOVASCULAR: S1 and S2 present. No murmurs, rubs, or gallops. PULMONARY: Chest is clear to auscultation, no wheezing or crackles. ABDOMEN: Soft, nontender, nondistended, normoactive bowel sounds. No palpable organomegaly. MUSCULOSKELETAL: No joint swelling or deformity. EXTREMITIES: Left below-knee amputation with wound VAC right lower extremity edema with the fifth toe gangrenous fall smelling discharge and a forefoot ulceration. NEUROLOGICAL: Gross neurological examination did not reveal any focal deficits. SKIN: As mentioned above -Right foot fifth toe gangrene with osteomyelitis patient had multiple debridements in the past and patient is undergoing below-knee amputation patient had below-knee amputation on the left side as well. Continue with the above- mentioned antibiotics. Wound cultures are showing gram-negative bacilli and blood cultures showing Staphylococcus species enterococcus Enterobacter cloaca. Patient is being followed by infectious disease repeat blood cultures are showing no growth from yesterday. Further management as per infectious disease. -Acute renal failure secondary to diuretics which will be held and the Motrin will be held and patient will be continued on IV fluids. Basic metabolic profile tomorrow -Type 2 diabetes mellitus blood patient's blood sugars are low will change the insulin that is long-acting insulin from 20 units to 20 units -Diabetic peripheral neuropathy continue gabapentin -Hypertension -Hypothyroidism -Patient had history of ischemic cardiomyopathy cardiac ejection fraction recovered as per the previous documentation by cardiology and patient has an AICD in place. Objective - Vital Signs Vital signs: Vital Signs Temp 97.8 F 03/22/21 16:19 Pulse 70 03/22/21 17:01 Resp 16 03/22/21 17:01 BP 127/60 03/22/21 17:01 Pulse Ox 94 L 03/22/21 17:01 Intake & Output 03/21/21 03/22/21 03/22/21 18:59 06:59 18:59 Intake Total 1050 1571 Output Total 750 750 75 Balance -224 130 2432 Weight 86.183 kg Intake: IV 951 Intake, IV Titration 1050 Amount Cefepime 2 gm In Sodium 200 Chloride 0.9% 100 ml @ 25 mls/hr IVPB Q8H [facility] Rx#: [id number] Clindamycin 900 mg In 100 Dextrose 5% in Water 50 ml @ 50 mls/hr IVPB Q8HR VICK Rx#:[id number] Sodium Chloride 0.9% 1, 750 000 ml @ 75 mls/hr IV . [id number] VICK Rx#:[id number] Blood Product 620 Rc As-1 Unit 310 [id number] Rc Cpda-1 Unit 310 [id number] Output: Urine 750 750 Estimated Blood Loss 75 Other: Voiding Method Urinal Urinal Urinal # Bowel Movements 1 - Labs CBC & Chem 7: 03/22/21 06:21 03/22/21 06:21 Labs: Abnormal Lab Results - Last 24 Hours (Table) 03/21/21 03/21/21 03/22/21 Range/Units 18:22 20:42 06:21 WBC (4.50-10.00) X 10*3/uL RBC (4.40-5.60) X 10*6/uL Hgb (13.0-17.0) g/dL Hct (39.6-50.0) % MCV (80.0-97.0) fL MCH (27.0-32.0) pg MCHC (32.0-37.0) g/dL RDW (11.5-14.5) % Immature Gran # (0.00-0.04) X 10*3/uL Neutrophils # (1.80-7.70) X 10*3/uL Monocytes # (0.20-1.00) X 10*3/uL Eosinophils # (0.04-0.35) X 10*3/uL ESR (0-20) mm/Hr BUN 48 H (9-20) mg/dL Creatinine 1.55 H (0.66-1.25) mg/dL Glucose 129 H (74-99) mg/dL POC Glucose (mg/dL) 250 H (75-99) mg/dL Calcium 7.6 L (8.4-10.2) mg/dL C-Reactive Protein 14.2 H (<1.0) mg/dL Urine Protein 1+ H (Negative) Urine Glucose (UA) 1+ H (Negative) Urine Blood Moderate H (Negative) Ur Leukocyte Esterase Large H (Negative) Urine RBC 13 H (0-5) /hpf Urine WBC >182 H (0-5) /hpf Urine WBC Clumps Many H (None) /hpf Urine Bacteria Few H (None) /hpf Hyaline Casts 11 H (0-2) /lpf Urine Mucus Occasional H (None) /hpf Crossmatch 03/22/21 03/22/21 03/22/21 Range/Units 06:21 07:25 08:50 WBC 12.57 H (4.50-10.00) X 10*3/uL RBC 3.02 L (4.40-5.60) X 10*6/uL Hgb 7.2 L (13.0-17.0) g/dL Hct 23.5 L (39.6-50.0) % MCV 77.8 L (80.0-97.0) fL MCH 23.8 L (27.0-32.0) pg MCHC 30.6 L (32.0-37.0) g/dL RDW 16.2 H (11.5-14.5) % Immature Gran # 0.07 H (0.00-0.04) X 10*3/uL Neutrophils # 8.95 H (1.80-7.70) X 10*3/uL Monocytes # 1.15 H (0.20-1.00) X 10*3/uL Eosinophils # 0.37 H (0.04-0.35) X 10*3/uL ESR 106 H (0-20) mm/Hr BUN (9-20) mg/dL Creatinine (0.66-1.25) mg/dL Glucose (74-99) mg/dL POC Glucose (mg/dL) 140 H (75-99) mg/dL Calcium (8.4-10.2) mg/dL C-Reactive Protein (<1.0) mg/dL Urine Protein (Negative) Urine Glucose (UA) (Negative) Urine Blood (Negative) Ur Leukocyte Esterase (Negative) Urine RBC (0-5) /hpf Urine WBC (0-5) /hpf Urine WBC Clumps (None) /hpf Urine Bacteria (None) /hpf Hyaline Casts (0-2) /lpf Urine Mucus (None) /hpf Crossmatch See Detail 03/22/21 03/22/21 Range/Units 13:49 16:22 WBC (4.50-10.00) X 10*3/uL RBC (4.40-5.60) X 10*6/uL Hgb (13.0-17.0) g/dL Hct (39.6-50.0) % MCV (80.0-97.0) fL MCH (27.0-32.0) pg MCHC (32.0-37.0) g/dL RDW (11.5-14.5) % Immature Gran # (0.00-0.04) X 10*3/uL Neutrophils # (1.80-7.70) X 10*3/uL Monocytes # (0.20-1.00) X 10*3/uL Eosinophils # (0.04-0.35) X 10*3/uL ESR (0-20) mm/Hr BUN (9-20) mg/dL Creatinine (0.66-1.25) mg/dL Glucose (74-99) mg/dL POC Glucose (mg/dL) 74 L 117 H (75-99) mg/dL Calcium (8.4-10.2) mg/dL C-Reactive Protein (<1.0) mg/dL Urine Protein (Negative) Urine Glucose (UA) (Negative) Urine Blood (Negative) Ur Leukocyte Esterase (Negative) Urine RBC (0-5) /hpf Urine WBC (0-5) /hpf Urine WBC Clumps (None) /hpf Urine Bacteria (None) /hpf Hyaline Casts (0-2) /lpf Urine Mucus (None) /hpf Crossmatch Microbiology - Last 24 Hours (Table) 03/20/21 14:45 Blood Culture Gram Stain - Preliminary Blood Blood Culture - Preliminary Coagulase Negative Staph 03/21/21 12:22 Blood Culture - Preliminary Blood No Growth after 24 hours 03/21/21 11:27 Gram Stain - Preliminary Foot - Right Wound Culture - Preliminary Gram Neg Bacilli 03/20/21 15:05 Blood Culture Gram Stain - Preliminary Blood Blood Culture - Preliminary Staphylococcus species Enterobacter cloacae Complex
--- NOTE | 2021-03-22 17:36 | P.OP ---
Date of Procedure: 03/22/21 Description of Procedure: PREOPERATIVE DIAGNOSIS: [Severe right lower extremity foot infection, peripheral arterial disease, diabetes, noncompliance]. POSTOPERATIVE DIAGNOSIS: [Same]. OPERATION: [Right] below knee amputation. SURGEON: Denia Armenta DO PLANNING AND ANALYSIS MANAGER: [None]. ANESTHESIA: [General endotracheal] ESTIMATED BLOOD LOSS: [75 mL] SPECIMENS REMOVED: [Right leg] COMPLICATIONS: [None immediately apparent] CONDITION: Stable to recovery FINDINGS AND INDICATIONS: [Chris is a 65-year-old male well known to our service for previous lower extremity wound debridements and Charcot feet. He has been dealing with these for many years. He recently was readmitted for issues with his right lower extremity and worsening wounds with evidence of possible gas gangrene. Discussion was had with the patient regarding the plan going forward and he adamantly stated he does not want to go forth with any further local wound care or debridement segment would rather just undergo an amputation at this point. Given the extent of the wound and previous issues with healing I do believe this is reasonable. His hemoglobin this morning was low therefore he was transfused prior to the procedure. Risks and benefits were discussed. He seemingly understood and is willing to proceed as such] PROCEDURE IN DETAIL: The patient was brought to the operating room, the operative leg was prepped and draped in the usual sterile manner. 10 cm below the tibial plateau was marked. The calf circumference was measured. Two thirds was utilized for the anterior incision, one third was utilized to create the flap. The incision was marked. The incision was deepened through the subcutaneous tissue and fascia to the level of the bone. The fascia was transected around the level of the incision. Anterior compartment muscles were divided and visualized to the tibial vessels which were suture ligated with 2-0 silk. Then the lateral compartment muscles were divided. Dissection was carried down to the level of the bone. The periosteal elevator was used and the tibia was freed from its periosteal tissues. The tibia was divided with an oscillating saw. The same was done of the fibula, approximately 1-1/2-2 cm more proximal to the tibia itself. The posterior flap was created with an amputation knife. Bleeding was controlled with suture ligation of the vessels. Electrocautery was also used for hemostasis. The specimen was removed. The wound was copiously irrigated. The tibia and fibula were smoothed with a rasp. 2-0 and 3-0 Vicryl was utilized to approximate the fascia. The skin was reapproximated with sharee. The incsion was cleansed and a dressing was placed. The patient was extubated and transferred to PACU in stable condition having tolerated the procedure well
[2021-03-22 17:53] LABS: Anisocytosis Slight; HCT 32.5 % (39.0-53.0); HGB 10.7 gm/dL (13.0-17.5); Hypochromasia Slight; MCH 26.2 pg (25.0-35.0); MCHC 32.9 g/dL (31.0-37.0); Mean Platelet Volume 7.4; Microcytosis Slight; Platelet Count 339 k/uL (150-450); Poikilocytosis Slight; RBC 4.09 m/uL (4.30-5.90); RDW 16.4 % (11.5-15.5)
[2021-03-22 17:59] LABS: MCV 79.6 fL (80.0-100.0)
[2021-03-22] MEDS: HYDROcodone/APAP 5-325MG 1 EACH TAB PO PRN (19:12)
[2021-03-22 20:16] LABS: Glucose,Whole Blood 215 mg/dL (75-99)
[2021-03-22] MEDS ORDERED: INSULIN DETEMIR (LEVEMIR) 100 UNIT/ML SYR SQ SCH (21:00)
[2021-03-23] MEDS: SODIUM CHLORIDE 0.9% 1,000 ML IV SCH ×2 (00:49→13:07)
[2021-03-23] MEDS: CLINDAMYCIN 900 MG in DEXTROSE 5% IN WATER 50 ML IVPB SCH ×6 (02:19→16:37)
[2021-03-23] MEDS: CEFEPIME 2 GM in SODIUM CHLORIDE 0.9% 100 ML IVPB SCH ×3 (02:22→21:49)
--- NOTE | 2021-03-23 05:31 | PN ---
PROGRESS NOTE DATE OF SERVICE: 03/22/2021 REASON FOR FOLLOW UP: Right diabetic foot infection and bacteremia. INTERVAL HISTORY: The patient is currently afebrile. The patient is hemodynamically stable, breathing comfortably. The patient was taken to the OR this afternoon and is status post right xsrbi-wst-peky amputation. Patient tolerated the procedure. No vomiting. No abdominal pain or diarrhea. PHYSICAL EXAMINATION: Blood pressure 105/56, pulse of 68, temperature 97.6, 98% on room air. General description is a middle-aged male lying in bed in no distress. Respiratory system: Unlabored breathing, clear to auscultation anteriorly. Heart S1, S2. Regular rate and rhythm. Abdomen soft, no tenderness. Right foot is currently dressed up. LABS: Hemoglobin is 10.3, white count 11.0. Blood culture with Coagulase negative Staph culture Enterobacter, foot culture with Gram-negative bacilli. DIAGNOSTIC IMPRESSION AND PLAN: Patient with right diabetic foot infection with gangrene of the fifth toe and nonhealing wound to the right foot lateral border in this patient status post right aiqao-vfy-tlaz amputation. The patient is covered with cefepime and clindamycin to continue while inpatient and monitor clinical course closely. Continue supportive care. Blood cultures repeated to document clearance. MMODL / IJN: [id number] /
[2021-03-23] MEDS: LEVOTHYROXINE 100 MCG TAB PO SCH (06:00)
[2021-03-23] MEDS: LEVOTHYROXINE 50 MCG TAB PO SCH (06:07)
[2021-03-23 06:54] LABS: Glucose,Whole Blood 64 mg/dL (75-99)
[2021-03-23 07:11] LABS: Glucose,Whole Blood 64 mg/dL (75-99)
[2021-03-23] MEDS: INSULIN ASPART (NovoLOG) 100 UNIT/ML VIAL SQ SCH ×4 (07:18→21:48)
[2021-03-23 08:15] LABS: Glucose,Whole Blood 172 mg/dL (75-99)
[2021-03-23] MEDS: ASPIRIN 81 MG PO SCH (08:28)
[2021-03-23] MEDS: METOPROLOL TARTRATE 25 MG TAB PO SCH (08:28)
[2021-03-23] MEDS: FENOFIBRATE 160 MG TAB PO SCH (08:28)
[2021-03-23] MEDS: GABAPENTIN 100 MG CAP PO SCH ×3 (08:29→21:49)
[2021-03-23] MEDS: FOLIC ACID 1 MG TAB PO SCH (08:29)
[2021-03-23 08:30] LABS: Anisocytosis Slight; HCT 30.6 % (39.0-53.0); HGB 10.3 gm/dL (13.0-17.5); MCH 26.5 pg (25.0-35.0); MCHC 33.8 g/dL (31.0-37.0); MCV 78.5 fL (80.0-100.0); Mean Platelet Volume 7.3; Microcytosis Slight; Platelet Count 337 k/uL (150-450); RDW 16.6 % (11.5-15.5); WBC 16.4 k/uL (3.8-10.6)
[2021-03-23 08:45] LABS: African American GFR (CKD) 62 (>60 ml/min/1.73 sqM); Anion Gap 6 mmol/L; Blood Urea Nitrogen 36 mg/dL (9-20); Calcium 7.6 mg/dL (8.4-10.2); Carbon Dioxide 25 mmol/L (22-30); Chloride 104 mmol/L (98-107); Glucose 169 mg/dL (74-99); Non-African American GFR(CKD) 53 (>60 ml/min/1.73 sqM); Potassium 4.2 mmol/L (3.5-5.1); Sodium 135 mmol/L (137-145)
--- NOTE | 2021-03-23 08:56 | P.PN ---
Subjective Progress Note Date: 03/23/21 Principal diagnosis: Right foot infection, osteomyelitis, Charcot foot She was seen and examined lying in bed. He is postop day #1 for right ogebf-ljr-wrxy amputation. He denies any pain to the stump, states he is having some phantom pain. He has been afebrile. He is status post 2 units of PRBC transfusion, hemoglobin improved to 10.3 yesterday. Today's labs are currently pending. He states he did have a low sugar this morning at 65 and felt a little shaky, he ate breakfast and sugar has improved. Infectious diseases on board, he is continuing his IV antibiotics at this time. Repeat blood cultures drawn. Objective - Vital Signs Vital signs: Vital Signs Temp 98.9 F 03/23/21 08:23 Pulse 93 03/23/21 08:23 Resp 15 03/23/21 08:23 BP 130/64 03/23/21 08:23 Pulse Ox 95 03/23/21 08:23 Intake & Output 03/22/21 03/23/21 03/23/21 18:59 06:59 18:59 Intake Total 1571 920 Output Total 475 450 Balance 1096 470 Intake: IV 951 Intake, IV Titration 680 Amount Cefepime 2 gm In Sodium 100 Chloride 0.9% 100 ml @ 25 mls/hr IVPB Q12H [facility] Rx# :[id number] Cefepime 2 gm In Sodium 100 Chloride 0.9% 100 ml @ 25 mls/hr IVPB Q8H [facility]ICK Rx#: [id number] Clindamycin 900 mg In 100 Dextrose 5% in Water 50 ml @ 50 mls/hr IVPB Q8HR VICK Rx#:[id number] Sodium Chloride 0.9% 1, 380 000 ml @ 75 mls/hr IV . [id number] VICK Rx#:[id number] Oral 240 Blood Product 620 Rc As-1 Unit 310 [id number] Rc Cpda-1 Unit 310 [id number] Output: Urine 400 450 Estimated Blood Loss 75 Other: Voiding Method Urinal Urinal # Voids 4 - Exam General appearance: The patient is alert, oriented, appears in no acute distress. HET: Head is normocephalic and atraumatic. Neck: Supple without lymphadenopathy. Trachea midline. Heart: S1 S2. Regular rate and rhythm. Lungs: Clear to auscultation. Abdomen: Soft, nontender, nondistended with bowel sounds. Extremities: Right kfspi-wua-qqvr amputation stump with dressing intact. Left lobe the knee stump with wound VAC and dressing intact. Neurological: No focal deficits. Alert and oriented 3. - Labs CBC & Chem 7: 03/23/21 08:10 03/23/21 08:10 Labs: Abnormal Lab Results - Last 24 Hours (Table) 03/22/21 03/22/21 03/22/21 Range/Units 06:21 06: 08:50 WBC 12.57 H (4.50-10.00) X 10*3/uL RBC 3.02 L (4.40-5.60) X 10*6/uL Hgb 7.2 L (13.0-17.0) g/dL Hct 23.5 L (39.6-50.0) % MCV 77.8 L (80.0-97.0) fL MCH 23.8 L (27.0-32.0) pg MCHC 30.6 L (32.0-37.0) g/dL RDW 16.2 H (11.5-14.5) % Immature Gran # 0.07 H (0.00-0.04) X 10*3/uL Neutrophils # 8.95 H (1.80-7.70) X 10*3/uL Monocytes # 1.15 H (0.20-1.00) X 10*3/uL Eosinophils # 0.37 H (0.04-0.35) X 10*3/uL ESR 106 H (0-20) mm/Hr Sodium (137-145) mmol/L BUN (9-20) mg/dL Creatinine (0.66-1.25) mg/dL Glucose (74-99) mg/dL POC Glucose (mg/dL) (75-99) mg/dL Calcium (8.4-10.2) mg/dL C-Reactive Protein 14.2 H (<1.0) mg/dL Crossmatch See Detail 03/22/21 03/22/21 03/22/21 Range/Units 13:49 16:22 17:33 WBC 11.0 H (4.50-10.00) X 10*3/uL RBC 4.09 L (4.40-5.60) X 10*6/uL Hgb 10.7 L (13.0-17.0) g/dL Hct 32.5 L (39.6-50.0) % MCV 79.6 L D (80.0-97.0) fL MCH (27.0-32.0) pg MCHC (32.0-37.0) g/dL RDW 16.4 H (11.5-14.5) % Immature Gran # (0.00-0.04) X 10*3/uL Neutrophils # (1.80-7.70) X 10*3/uL Monocytes # (0.20-1.00) X 10*3/uL Eosinophils # (0.04-0.35) X 10*3/uL ESR (0-20) mm/Hr Sodium (137-145) mmol/L BUN (9-20) mg/dL Creatinine (0.66-1.25) mg/dL Glucose (74-99) mg/dL POC Glucose (mg/dL) 74 L 117 H (75-99) mg/dL Calcium (8.4-10.2) mg/dL C-Reactive Protein (<1.0) mg/dL Crossmatch 03/22/21 03/23/21 03/23/21 Range/Units 20:14 06:53 07:10 WBC (4.50-10.00) X 10*3/uL RBC (4.40-5.60) X 10*6/uL Hgb (13.0-17.0) g/dL Hct (39.6-50.0) % MCV (80.0-97.0) fL MCH (27.0-32.0) pg MCHC (32.0-37.0) g/dL RDW (11.5-14.5) % Immature Gran # (0.00-0.04) X 10*3/uL Neutrophils # (1.80-7.70) X 10*3/uL Monocytes # (0.20-1.00) X 10*3/uL Eosinophils # (0.04-0.35) X 10*3/uL ESR (0-20) mm/Hr Sodium (137-145) mmol/L BUN (9-20) mg/dL Creatinine (0.66-1.25) mg/dL Glucose (74-99) mg/dL POC Glucose (mg/dL) 215 H 64 L 64 L (75-99) mg/dL Calcium (8.4-10.2) mg/dL C-Reactive Protein (<1.0) mg/dL Crossmatch 03/23/21 03/23/21 03/23/21 Range/Units 08:10 08:10 08:14 WBC 16.4 H (4.50-10.00) X 10*3/uL RBC 3.90 L (4.40-5.60) X 10*6/uL Hgb 10.3 L (13.0-17.0) g/dL Hct 30.6 L (39.6-50.0) % MCV 78.5 L (80.0-97.0) fL MCH (27.0-32.0) pg MCHC (32.0-37.0) g/dL RDW 16.6 H (11.5-14.5) % Immature Gran # (0.00-0.04) X 10*3/uL Neutrophils # (1.80-7.70) X 10*3/uL Monocytes # (0.20-1.00) X 10*3/uL Eosinophils # (0.04-0.35) X 10*3/uL ESR (0-20) mm/Hr Sodium 135 L (137-145) mmol/L BUN 36 H (9-20) mg/dL Creatinine 1.39 H (0.66-1.25) mg/dL Glucose 169 H (74-99) mg/dL POC Glucose (mg/dL) 172 H (75-99) mg/dL Calcium 7.6 L (8.4-10.2) mg/dL C-Reactive Protein (<1.0) mg/dL Crossmatch Microbiology - Last 24 Hours (Table) 03/20/21 14:45 Blood Culture Gram Stain - Preliminary Blood Blood Culture - Preliminary Coagulase Negative Staph 03/21/21 12:22 Blood Culture - Preliminary Blood No Growth after 24 hours 03/21/21 11:27 Gram Stain - Preliminary Foot - Right Wound Culture - Preliminary Gram Neg Bacilli Assessment and Plan Assessment: 1. Postop day #1 right wvlye-drq-ejlz amputation 2. Severe right foot infection 3. Chronic nonhealing wounds to right lower extremity with previous debridement 3. Gangrene of right fifth toe 4. Peripheral arterial disease 5. History of recent left below the knee amputation 6. Type 2 diabetes 7. Peripheral neuropathy 8. History of heart failure 9. Hypertension 10. Hyperlipidemia Plan: 1. Continue IV antibiotics 2. Wound VAC to be changed every 3 days to left BKA stump 3. Stump cake wrapper and rigid dressing ordered, please contact [facility] 4. Continue medical management 5. Consult to physical therapy ordered 6. Patient was like to be discharged home with home care and physical therapy Thank you for this consultation and allowing us take part in the plan of care of your patient during his hospital stay. The impression and plan of care has been dictated as directed. Dr. Armenta I performed a history and examination of this patient, discussed the same with the dictator. I agree with the dictator's note ,documented as a scribe. Any additional findings or plans will be noted.
[2021-03-23 11:45] LABS: Glucose,Whole Blood 275 mg/dL (75-99)
--- NOTE | 2021-03-23 13:06 | P.PN ---
Subjective Patient is admitted for right foot infection gangrene and osteomyelitis of the right foot. Patient is undergoing a right below-knee amputation today. was admitted for sepsis secondary to right foot gangrene. Patient is presently on cefepime, clindamycin. Patient's creatinine is around 1.5 Motrin will be discontinued will discuss reviewed Lasix as well. Morphine will be switched to [place]. We'll hold off on losartan and continue with IV fluids. 03/23/2021 Patient is a left below-knee amputation. Patient blood sugars started going up as he started eating. Thing long-acting insulin dose to 15 units continue with sliding scale insulin. Continue with present antibiotics. Since patient had bacteremia patient probably will need to continue the antibiotics. Final decision regarding antibiotic duration up to infectious disease. Patient probably can be discharged tomorrow if he continues to have negative blood cultures. Constitutional: Denied any fatigue denied any fever. Cardio vascular: denied any chest pain, palpitations Gastrointestinal denied any nausea vomiting Pulmonary: Denied any shortness of breath cough Neurologic denied any new focal deficits All inpatient medications were reviewed and appropriate changes in these medications as dictated in the interval history and assessment and plan. PHYSICAL EXAMINATION: GENERAL: The patient is alert and oriented x3, not in any acute distress. Well developed, well nourished. HEENT: Pupils are round and equally reacting to light. EOMI. No scleral icterus. No conjunctival pallor. Normocephalic, atraumatic. No pharyngeal erythema. No thyromegaly. CARDIOVASCULAR: S1 and S2 present. No murmurs, rubs, or gallops. PULMONARY: Chest is clear to auscultation, no wheezing or crackles. ABDOMEN: Soft, nontender, nondistended, normoactive bowel sounds. No palpable organomegaly. MUSCULOSKELETAL: No joint swelling or deformity. EXTREMITIES: Left below-knee amputation with wound VAC right lower extremity edema with the fifth toe gangrenous fall smelling discharge and a forefoot ulceration. NEUROLOGICAL: Gross neurological examination did not reveal any focal deficits. SKIN: As mentioned above -Right foot fifth toe gangrene with osteomyelitis patient had multiple debridements in the past and patient is undergoing below-knee amputation patient had below-knee amputation on the left side as well. Continue with the above- mentioned antibiotics. Wound cultures are showing gram-negative bacilli and blood cultures showing Staphylococcus species enterococcus Enterobacter cloaca. Patient is being followed by infectious disease repeat blood cultures are s howing no growth from yesterday. Further management as per infectious disease. -Acute renal failure secondary to diuretics which will be held and the Motrin will be held and patient will be continued on IV fluids. Basic metabolic profile tomorrow -Type 2 diabetes mellitus blood patient's blood sugars are low will change the insulin that is long-acting insulin from 15 units as his blood sugars started going up -Diabetic peripheral neuropathy continue gabapentin -Hypertension -Hypothyroidism -Patient had history of ischemic cardiomyopathy cardiac ejection fraction recovered as per the previous documentation by cardiology and patient has an AICD in place. Objective - Vital Signs Vital signs: Vital Signs Temp 98.9 F 03/23/21 08:23 Pulse 93 03/23/21 08:23 Resp 15 03/23/21 08:23 BP 130/64 03/23/21 08:23 Pulse Ox 95 03/23/21 08:23 Intake & Output 03/22/21 03/23/21 03/23/21 18:59 06:59 18:59 Intake Total 1571 920 Output Total 475 450 Balance 1096 470 Intake: IV 951 Intake, IV Titration 680 Amount Cefepime 2 gm In Sodium 100 Chloride 0.9% 100 ml @ 25 mls/hr IVPB Q12H [facility] Rx# :[id number] Cefepime 2 gm In Sodium 100 Chloride 0.9% 100 ml @ 25 mls/hr IVPB Q8H [facility]ICK Rx#: [id number] Clindamycin 900 mg In 100 Dextrose 5% in Water 50 ml @ 50 mls/hr IVPB Q8HR [facility] Rx#:[id number] Sodium Chloride 0.9% 1, 380 000 ml @ 75 mls/hr IV . [id number] [facility]ICK Rx#:[id number] Oral 240 Blood Product 620 Rc As-1 Unit 310 [id number] Rc Cpda-1 Unit 310 [id number] Output: Urine 400 450 Estimated Blood Loss 75 Other: Voiding Method Urinal Urinal # Voids 4 2 - Labs CBC & Chem 7: 03/23/21 08:10 03/23/21 08:10 Labs: Abnormal Lab Results - Last 24 Hours (Table) 03/22/21 03/22/21 03/22/21 Range/Units 06:21 08:50 13:49 WBC (3.8-10.6) k/uL RBC (4.30-5.90) m/uL Hgb (13.0-17.5) gm/dL Hct (39.0-53.0) % MCV (80.0-100.0) fL RDW (11.5-15.5) % ESR 106 H (0-20) mm/Hr Sodium (137-145) mmol/L BUN (9-20) mg/dL Creatinine (0.66-1.25) mg/dL Glucose (74-99) mg/dL POC Glucose (mg/dL) 74 L (75-99) mg/dL Calcium (8.4-10.2) mg/dL Crossmatch See Detail 03/22/21 03/22/21 03/22/21 Range/Units 16:22 17:33 20:14 WBC 11.0 H (3.8-10.6) k/uL RBC 4.09 L (4.30-5.90) m/uL Hgb 10.7 L (13.0-17.5) gm/dL Hct 32.5 L (39.0-53.0) % MCV 79.6 L D (80.0-100.0) fL RDW 16.4 H (11.5-15.5) % ESR (0-20) mm/Hr Sodium (137-145) mmol/L BUN (9-20) mg/dL Creatinine (0.66-1.25) mg/dL Glucose (74-99) mg/dL POC Glucose (mg/dL) 117 H 215 H (75-99) mg/dL Calcium (8.4-10.2) mg/dL Crossmatch 03/23/21 03/23/21 03/23/21 Range/Units 06:53 07:10 08:10 WBC 16.4 H (3.8-10.6) k/uL RBC 3.90 L (4.30-5.90) m/uL Hgb 10.3 L (13.0-17.5) gm/dL Hct 30.6 L (39.0-53.0) % MCV 78.5 L (80.0-100.0) fL RDW 16.6 H (11.5-15.5) % ESR (0-20) mm/Hr Sodium (137-145) mmol/L BUN (9-20) mg/dL Creatinine (0.66-1.25) mg/dL Glucose (74-99) mg/dL POC Glucose (mg/dL) 64 L 64 L (75-99) mg/dL Calcium (8.4-10.2) mg/dL Crossmatch 03/23/21 03/23/21 03/23/21 Range/Units 08:10 08:14 11:43 WBC (3.8-10.6) k/uL RBC (4.30-5.90) m/uL Hgb (13.0-17.5) gm/dL Hct (39.0-53.0) % MCV (80.0-100.0) fL RDW (11.5-15.5) % ESR (0-20) mm/Hr Sodium 135 L (137-145) mmol/L BUN 36 H (9-20) mg/dL Creatinine 1.39 H (0.66-1.25) mg/dL Glucose 169 H (74-99) mg/dL POC Glucose (mg/dL) 172 H 275 H (75-99) mg/dL Calcium 7.6 L (8.4-10.2) mg/dL Crossmatch Microbiology - Last 24 Hours (Table) 03/21/21 11:27 Gram Stain - Final Foot - Right Wound Culture - Final Enterobacter cloacae 03/20/21 14:45 Blood Culture Gram Stain - Final Blood Blood Culture - Preliminary Staph hominis sub sp. hominis 03/22/21 06:21 Blood Culture - Preliminary Blood No Growth after 24 hours 03/21/21 12:22 Blood Culture - Preliminary Blood No Growth after 24 hours
[2021-03-23 16:45] LABS: Glucose,Whole Blood 292 mg/dL (75-99)
[2021-03-23] MEDS: HYDROcodone/APAP 5-325MG 1 EACH TAB PO PRN (20:03)
[2021-03-23 21:00] LABS: Glucose,Whole Blood 354 mg/dL (75-99)
[2021-03-23] MEDS: INSULIN DETEMIR (LEVEMIR) 100 UNIT/ML SYR SQ SCH (21:48)
--- NOTE | 2021-03-23 23:58 | PN ---
PROGRESS NOTE DATE OF SERVICE: 03/23/2021. REASON FOR FOLLOWUP: Right diabetic foot infection with secondary bacteremia. INTERVAL HISTORY: Patient is afebrile. The patient is breathing comfortably. The patient denies having any chest pain. No shortness of breath or cough. No abdominal pain. Overall pain to the right BKA stump is currently controlled. PHYSICAL EXAMINATION: Blood pressure is 147/68 with a pulse of 87, temperature 99.8. He is 96% on room air. General description is a middle-aged male lying in bed in no distress. Respiratory system: Unlabored breathing. Clear to auscultation anteriorly. Heart S1, S2. Regular rate and rhythm. Abdomen soft, no tenderness. LABS: White count 9.8, hemoglobin 16.4, BUN of 36, creatinine 1.39. Blood culture repeat is so far negative. DIAGNOSTIC IMPRESSION AND PLAN: 1. Patient with possible , possible contamination. Repeat blood culture negative off vancomycin. 2. Patient with Enterobacter bacteremia source secondary to right diabetic foot infection status post right acmtb-mzj-mnjs amputation. Patient covered with cefepime to continue. Clindamycin is continued. MMODL / IJN: [id number] /
[2021-03-24 02:17] LABS: Glucose,Whole Blood 242 mg/dL (75-99)
[2021-03-24] MEDS: SODIUM CHLORIDE 0.9% 1,000 ML IV SCH ×2 (03:45→17:25)
[2021-03-24] MEDS: LEVOTHYROXINE 100 MCG TAB PO SCH (05:58)
[2021-03-24] MEDS: LEVOTHYROXINE 50 MCG TAB PO SCH (05:58)
[2021-03-24 07:25] LABS: Glucose,Whole Blood 153 mg/dL (75-99)
[2021-03-24] MEDS: METOPROLOL TARTRATE 25 MG TAB PO SCH (07:56)
[2021-03-24] MEDS: FENOFIBRATE 160 MG TAB PO SCH (07:58)
[2021-03-24] MEDS: ASPIRIN 81 MG PO SCH (07:59)
[2021-03-24] MEDS: FOLIC ACID 1 MG TAB PO SCH (07:59)
[2021-03-24] MEDS: GABAPENTIN 100 MG CAP PO SCH ×3 (07:59→21:05)
[2021-03-24] MEDS: INSULIN ASPART (NovoLOG) 100 UNIT/ML VIAL SQ SCH ×4 (07:59→21:06)
--- NOTE | 2021-03-24 09:08 | P.PN ---
Subjective Progress Note Date: 03/24/21 Principal diagnosis: Right foot infection, osteomyelitis, Charcot foot Patient is seen and examined at the bedside. He is postop day #2 for a right below the knee amputation. No acute changes through the night. He had low- grade temp last evening 99.8. He remains on IV antibiotics at this time. Repeat blood culture preliminary showing no growth after 48 hours. Pain is man ageable. Gabapentin was increased yesterday. Objective - Vital Signs Vital signs: Vital Signs Temp 99.8 F H 03/24/21 07:42 Pulse 73 03/24/21 07:42 Resp 16 03/24/21 07:42 BP 107/58 03/24/21 07:42 Pulse Ox 96 03/24/21 07:42 Intake & Output 03/23/21 03/24/21 03/24/21 18:59 06:59 18:59 Intake Total 480 Balance 480 Weight 86.183 kg Intake: Oral 480 Other: Voiding Method Urinal # Voids 2 5 - Exam General appearance: The patient is alert, oriented, appears in no acute distress. HET: Head is normocephalic and atraumatic. Neck: Supple without lymphadenopathy. Trachea midline. Heart: S1 S2. Regular rate and rhythm. Lungs: Clear to auscultation. Abdomen: Soft, nontender, nondistended with bowel sounds. Extremities: Right rufnr-vls-kykx amputation stump with dressing intact. Dressing changed to right stump, incision well approximated with sharee, small amount of serous drainage, skin tissue pink and warm. Left below the knee stump with wound VAC and dressing intact. Neurological: No focal deficits. Alert and oriented 3. - Labs CBC & Chem 7: 03/24/21 05:37 03/24/21 05:37 Labs: Abnormal Lab Results - Last 24 Hours (Table) 03/23/21 03/23/21 03/23/21 Range/Units 11:43 16:44 20:58 POC Glucose (mg/dL) 275 H 292 H 354 H (75-99) mg/dL 03/24/21 03/24/21 Range/Units 02:15 07:18 POC Glucose (mg/dL) 242 H 153 H (75-99) mg/dL Microbiology - Last 24 Hours (Table) 03/22/21 06:21 Blood Culture - Preliminary Blood No Growth after 48 hours 03/21/21 12:22 Blood Culture - Preliminary Blood No Growth after 48 hours 03/20/21 15:05 Blood Culture Gram Stain - Final Blood Blood Culture - Final Staph hominis sub sp. hominis Enterobacter cloacae Complex 03/21/21 11:27 Gram Stain - Final Foot - Right Wound Culture - Final Enterobacter cloacae 03/20/21 14:45 Blood Culture Gram Stain - Final Blood Blood Culture - Preliminary Staph hominis sub sp. hominis Assessment and Plan Assessment: 1. Postop day #2 right qmxej-bzu-ivel amputation 2. Severe right foot infection 3. Chronic nonhealing wounds to right lower extremity with previous debridement 3. Gangrene of right fifth toe 4. Peripheral arterial disease 5. History of recent left below the knee amputation 6. Type 2 diabetes 7. Peripheral neuropathy 8. History of heart failure 9. Hypertension 10. Hyperlipidemia Plan: 1. Continue IV antibiotics 2. Wound VAC to be changed every 3 days to left BKA stump 3. Stump excel analyst and rigid dressing ordered, please contact [facility] 4. Continue medical management 5. Consult to physical therapy ordered 6. Patient would like to be discharged home with home care and physical therapy 7. Daily dressing change with adaptic, 4x4, kerlix 8. Patient is cleared from vascular surgery for discharge once otherwise medically stable. Thank you for this consultation and allowing us take part in the plan of care of your patient during his hospital stay. The impression and plan of care has been dictated as directed. Dr. Armenta I performed a history and examination of this patient, discussed the same with the dictator. I agree with the dictator's note ,documented as a scribe. Any additional findings or plans will be noted.
[2021-03-24 09:50] LABS: HCT 28.1 % (39.6-50.0); HGB 8.8 g/dL (13.0-17.0); MCH 25.4 pg (27.0-32.0); MCHC 31.3 g/dL (32.0-37.0); Mean Platelet Volume 10.7 fL (9.5-12.2); Platelet Count 323 X 10*3/uL (140-440); RBC 3.47 X 10*6/uL (4.40-5.60); WBC 15.13 X 10*3/uL (4.50-10.00)
--- NOTE | 2021-03-24 10:13 | CDI ---
Documentation Clarification Form Date: 03/28/2021 01:20:04 PM From: Echo Irving RN CCDS Admit Date: 03/20/2021 05:14:00 PM Patient Name: Cruz Sorenson V Visit Number: [id number] Discharge Date: ATTENTION: The Clinical Documentation Specialists (CDI) and [facility] Coding Staff appreciate your assistance in clarifying documentation. Please respond to the clarification below the line at the bottom and electronically sign. The CDI & [facility] Coding staff will review the response and follow-up if needed. Please note: Queries are made part of the Legal Health Record. If you have any questions, please contact the author of this message via ITS. Dr. Johny Granado, Your patient has the documented diagnosis of unspecified CHF 03/21 in H&P as the attending/admitting physician. Additional information regarding the type, acuity of CHF is requested. History/Risk Factors: 65-year-old male presents to the ED for severe ulceration of the left foot that is foul smelling. Medical History: CHF; DM2 and HTN. H&P 03/21. Clinical Indicators: VS/Pulse OX: 03/20 B/P 92/60; HR 93; Temp 97.9 F Oral; RR 18; SpO2 98% ra Cardiology Consult 12/22: Echo 08/29/20 EF 50-55%. Diastolic function indicates normal diastolic function. Treatment: 03/20 Lasix 40mg PO Daily VICK dc 03/22; 03/20 Lopressor 75mg PO Daily VICK to current. In your professional opinion, can you please clarify the acuity and type of CHF if known? [ ] Chronic Diastolic Heart Failure (preserved EF) [ ] CHF Ruled Out [ ] Other, please specify [ ] Unable to determine (Template Last Revised: October 2020) MTDD
[2021-03-24 10:59] LABS: African American GFR (CKD) 56.2 (60.0-200.0); Anion Gap 4.2 mmol/L (4.00-12.00); Calcium 6.8 mg/dL (8.7-10.3); Carbon Dioxide 26.8 mmol/L (21.6-31.8); Non-African American GFR(CKD) 48.5 (60.0-200.0); Potassium 4.3 mmol/L (3.5-5.5)
[2021-03-24] MEDS: CEFEPIME 2 GM in SODIUM CHLORIDE 0.9% 100 ML IVPB SCH ×2 (11:46→23:08)
[2021-03-24 11:48] LABS: Glucose,Whole Blood 174 mg/dL (75-99)
[2021-03-24 17:00] LABS: Glucose,Whole Blood 158 mg/dL (75-99)
--- NOTE | 2021-03-24 17:04 | PN ---
PROGRESS NOTE DATE OF SERVICE: 03/24/2021 REASON FOR FOLLOWUP: Right diabetic foot infection with bacteremia. INTERVAL HISTORY: Patient has been running a low-grade fever of 99.8. The patient denies having any chest pain. No shortness of breath or cough. No nausea, vomiting, abdominal pain or diarrhea. PHYSICAL EXAMINATION: Blood pressure 107/63 with a pulse of 71, temperature 98.7. He is 97% on room air. General description is a middle-aged male lying in in no distress. Respiratory system: Unlabored breathing, clear to auscultation anteriorly. Heart S1, S2. Regular rate and rhythm. Right BKA stump is currently covered. No drainage on the dressing. LABS: White count 15.1, BUN of 42, creatinine 1.5. ASSESSMENT: 1. Patient with right diabetic foot infection. Culture positive for Enterobacter. The patient is currently on cefepime with plan for at least 2 weeks of antibiotics from his negative blood cultures. 2. Possible persistent bacteremia in Staphylococcus hominis likely contaminant been negative. No need for vancomycin. MMODL / IJN: [id number] /
[2021-03-24 20:40] LABS: Glucose,Whole Blood 247 mg/dL (75-99)
[2021-03-24] MEDS: INSULIN DETEMIR (LEVEMIR) 100 UNIT/ML SYR SQ SCH (21:05)
[2021-03-25] MEDS: LEVOTHYROXINE 100 MCG TAB PO SCH (06:01)
[2021-03-25] MEDS: LEVOTHYROXINE 50 MCG TAB PO SCH (06:02)
[2021-03-25 06:44] LABS: Glucose,Whole Blood 93 mg/dL (75-99)
[2021-03-25] MEDS: INSULIN ASPART (NovoLOG) 100 UNIT/ML VIAL SQ SCH ×4 (08:15→20:34)
[2021-03-25] MEDS: FOLIC ACID 1 MG TAB PO SCH (08:24)
[2021-03-25] MEDS: ASPIRIN 81 MG PO SCH (08:24)
[2021-03-25] MEDS: GABAPENTIN 100 MG CAP PO SCH ×3 (08:24→20:34)
[2021-03-25] MEDS: FENOFIBRATE 160 MG TAB PO SCH (08:24)
[2021-03-25] MEDS: METOPROLOL TARTRATE 25 MG TAB PO SCH (08:25)
[2021-03-25 11:35] LABS: Glucose,Whole Blood 177 mg/dL (75-99)
[2021-03-25] MEDS: SODIUM CHLORIDE 0.9% 1,000 ML IV SCH ×2 (11:53→19:41)
[2021-03-25] MEDS: CEFEPIME 2 GM in SODIUM CHLORIDE 0.9% 100 ML IVPB SCH (11:54)
--- NOTE | 2021-03-25 12:11 | P.PN ---
Subjective Progress Note Date: 03/24/21 Principal diagnosis: Right foot fifth toe gangrene with osteomyelitis Patient is admitted for right foot infection gangrene and osteomyelitis of the right foot. Patient is undergoing a right below-knee amputation today. was admitted for sepsis secondary to right foot gangrene. Patient is presently on cefepime, clindamycin. Patient's creatinine is around 1.5 Motrin will be discontinued will discuss reviewed Lasix as well. Morphine will be switched to [place]. We'll hold off on losartan and continue with IV fluids. 03/24/2021 Patient is seen and examined at the bedside. He is postop day #2 for a right below the knee amputation. Patient is a previous left below-knee amputation. Patient blood sugars started going up as he started eating. Thing long-acting insulin dose to 15 units continue with sliding scale insulin. Continue with present antibiotics. ID on board and recommending to continue IV cefepime with plan for at least 2 weeks of antibiotic from date blood cultures turned negative. Objective - Vital Signs Vital signs: Vital Signs Temp 99.8 F H 03/24/21 07:42 Pulse 73 03/24/21 07:42 Resp 16 03/24/21 07:42 BP 107/58 03/24/21 07:42 Pulse Ox 96 03/24/21 07:42 Intake & Output 03/23/21 03/24/21 03/24/21 18:59 06:59 18:59 Intake Total 480 400 Output Total 500 Balance 480 -100 Weight 86.183 kg Intake: Oral 480 400 Output: Urine 500 Other: Voiding Method Urinal # Voids 2 5 # Bowel Movements 1 - Exam GENERAL: The patient is alert and oriented x3, not in any acute distress. Well developed, well nourished. HEENT: Pupils are round and equally reacting to light. EOMI. No scleral icterus. No conjunctival pallor. Normocephalic, atraumatic. No pharyngeal erythema. No thyromegaly. CARDIOVASCULAR: S1 and S2 present. No murmurs, rubs, or gallops. PULMONARY: Chest is clear to auscultation, no wheezing or crackles. ABDOMEN: Soft, nontender, nondistended, normoactive bowel sounds. No palpable organomegaly. MUSCULOSKELETAL: No joint swelling or deformity. EXTREMITIES: Left below-knee amputation with wound VAC right lower extremity edema with the fifth toe gangrenous fall smelling discharge and a forefoot ulceration. NEUROLOGICAL: Gross neurological examination did not reveal any focal deficits. SKIN: As mentioned above - Labs CBC & Chem 7: 03/24/21 05:37 03/24/21 05:37 Labs: Abnormal Lab Results - Last 24 Hours (Table) 03/23/21 03/23/21 03/24/21 Range/Units 16:44 20:58 02:15 WBC (4.50-10.00) X 10*3/uL RBC (4.40-5.60) X 10*6/uL Hgb (13.0-17.0) g/dL Hct (39.6-50.0) % MCH (27.0-32.0) pg MCHC (32.0-37.0) g/dL RDW (11.5-14.5) % BUN (9.0-27.0) mg/dL Est GFR (CKD-EPI)AfAm (60.0-200.0) Est GFR (CKD-EPI)NonAf (60.0-200.0) BUN/Creatinine Ratio (12.00-20.00) Ratio Glucose (70-110) mg/dL POC Glucose (mg/dL) 292 H 354 H 242 H (75-99) mg/dL Calcium (8.7-10.3) mg/dL 03/24/21 03/24/21 03/24/21 Range/Units 05:37 05:37 07:18 WBC 15.13 H (4.50-10.00) X 10*3/uL RBC 3.47 L (4.40-5.60) X 10*6/uL Hgb 8.8 L (13.0-17.0) g/dL Hct 28.1 L (39.6-50.0) % MCH 25.4 L (27.0-32.0) pg MCHC 31.3 L (32.0-37.0) g/dL RDW 18.0 H (11.5-14.5) % BUN 42.0 H (9.0-27.0) mg/dL Est GFR (CKD-EPI)AfAm 56.2 L (60.0-200.0) Est GFR (CKD-EPI)NonAf 48.5 L (60.0-200.0) BUN/Creatinine Ratio 28.00 H (12.00-20.00) Ratio Glucose 167 H (70-110) mg/dL POC Glucose (mg/dL) 153 H (75-99) mg/dL Calcium 6.8 L (8.7-10.3) mg/dL 03/24/21 Range/Units 11:46 WBC (4.50-10.00) X 10*3/uL RBC (4.40-5.60) X 10*6/uL Hgb (13.0-17.0) g/dL Hct (39.6-50.0) % MCH (27.0-32.0) pg MCHC (32.0-37.0) g/dL RDW (11.5-14.5) % BUN (9.0-27.0) mg/dL Est GFR (CKD-EPI)AfAm (60.0-200.0) Est GFR (CKD-EPI)NonAf (60.0-200.0) BUN/Creatinine Ratio (12.00-20.00) Ratio Glucose (70-110) mg/dL POC Glucose (mg/dL) 174 H (75-99) mg/dL Calcium (8.7-10.3) mg/dL Microbiology - Last 24 Hours (Table) 03/21/21 12:22 Blood Culture - Preliminary Blood No Growth after 72 hours 03/22/21 06:21 Blood Culture - Preliminary Blood No Growth after 48 hours 03/20/21 15:05 Blood Culture Gram Stain - Final Blood Blood Culture - Final Staph hominis sub sp. hominis Enterobacter cloacae Complex 03/21/21 11:27 Gram Stain - Final Foot - Right Wound Culture - Final Enterobacter cloacae Assessment and Plan Assessment: -Right foot fifth toe gangrene with osteomyelitis patient had multiple debridements in the past and patient is undergoing below-knee amputation patient had below-knee amputation on the left side as well. Continue with the above- mentioned antibiotics. Wound cultures are showing gram-negative bacilli and blood cultures showing Staphylococcus species enterococcus Enterobacter cloaca. Patient is being followed by infectious disease repeat blood cultures are showing no growth from yesterday. Further management as per infectious disease. -Acute renal failure secondary to diuretics which will be held and the Motrin will be held and patient will be continued on IV fluids. Basic metabolic profile tomorrow -Type 2 diabetes mellitus blood patient's blood sugars are low will change the insulin that is long-acting insulin from 15 units as his blood sugars started going up -Diabetic peripheral neuropathy continue gabapentin -Hypertension -Hypothyroidism -Patient had history of ischemic cardiomyopathy cardiac ejection fraction recovered as per the previous documentation by cardiology and patient has an AICD in place.
[2021-03-25 16:30] LABS: Glucose,Whole Blood 187 mg/dL (75-99)
[2021-03-25 20:27] LABS: Glucose,Whole Blood 227 mg/dL (75-99)
[2021-03-25] MEDS: INSULIN DETEMIR (LEVEMIR) 100 UNIT/ML SYR SQ SCH (20:34)
[2021-03-26] MEDS: CEFEPIME 2 GM in SODIUM CHLORIDE 0.9% 100 ML IVPB SCH ×3 (00:06→23:39)
--- NOTE | 2021-03-26 01:00 | PN ---
PROGRESS NOTE DATE OF SERVICE: 03/25/2021. REASON FOR FOLLOWUP: Right diabetic foot infection, Enterobacter bacteremia. INTERVAL HISTORY: Patient is afebrile. The patient is breathing comfortably. Patient denies having any chest pain, shortness of breath, abdominal pain, or any worsening pain to the right AKA stump. PHYSICAL EXAMINATION: Blood pressure 124/58 with a pulse of 64, temperature 9.6, 95% on room air. Description: Is a middle-aged male lying in in no distress. RESPIRATORY SYSTEM: Unlabored breathing, clear to auscultation anteriorly. HEART: S1, S2. Regular rate and rhythm. EXTREMITIES: Right BKA stump is currently dressed. No obvious drainage on the dressing. LABS: No new labs have been obtained today. DIAGNOSTIC IMPRESSION AND PLAN: Patient with right diabetic foot infection in this patient who is status post right xljok-ild-akyc amputation as infected part wound he will not need to be on long-term antibiotic therapy. The patient did have Enterobacter bacteremia and at least 2 weeks. Negative blood cultures. Continue cefepime and monitor clinical course closely. MMODL / IJN: [id number] /
[2021-03-26] MEDS: LEVOTHYROXINE 100 MCG TAB PO SCH (05:10)
[2021-03-26] MEDS: SODIUM CHLORIDE 0.9% 1,000 ML IV SCH ×2 (05:10→21:32)
[2021-03-26] MEDS: LEVOTHYROXINE 50 MCG TAB PO SCH (05:10)
[2021-03-26 06:49] LABS: Glucose,Whole Blood 119 mg/dL (75-99)
[2021-03-26] MEDS: INSULIN ASPART (NovoLOG) 100 UNIT/ML VIAL SQ SCH ×4 (06:56→21:35)
[2021-03-26] MEDS: ASPIRIN 81 MG PO SCH (07:01)
[2021-03-26] MEDS: GABAPENTIN 100 MG CAP PO SCH ×3 (07:01→21:37)
[2021-03-26] MEDS: METOPROLOL TARTRATE 25 MG TAB PO SCH (07:01)
[2021-03-26] MEDS: FENOFIBRATE 160 MG TAB PO SCH (07:02)
[2021-03-26] MEDS: FOLIC ACID 1 MG TAB PO SCH (07:02)
[2021-03-26] MEDS: ACETAMINOPHEN TAB 325 MG TAB PO PRN (07:04)
[2021-03-26 11:27] LABS: Glucose,Whole Blood 172 mg/dL (75-99)
--- NOTE | 2021-03-26 12:25 | P.PN ---
Subjective Progress Note Date: 03/25/21 Principal diagnosis: Right foot fifth toe gangrene with osteomyelitis Patient is admitted for right foot infection gangrene and osteomyelitis of the right foot. Patient is undergoing a right below-knee amputation today. was admitted for sepsis secondary to right foot gangrene. Patient is presently on cefepime, clindamycin. Patient's creatinine is around 1.5 Motrin will be discontinued will discuss reviewed Lasix as well. Morphine will be switched to [place]. We'll hold off on losartan and continue with IV fluids. 03/24/2021 Patient is seen and examined at the bedside. He is postop day #2 for a right below the knee amputation. Patient is a previous left below-knee amputation. Patient blood sugars started going up as he started eating. Thing long-acting insulin dose to 15 units continue with sliding scale insulin. Continue with present antibiotics. ID on board and recommending to continue IV cefepime with plan for at least 2 weeks of antibiotic from date blood cultures turned negative. 03/25/2021 Patient is seen and evaluated in room at bedside; remains afebrile; vital signs reveal blood pressure 124/58, pulse 64, temperature 96.6 and SpO2 of 95% on room air Patient is status post right below-knee amputation for infected right diabetic foot wound; ID on board; not recommending long-term antibiotic therapy; patient did have an Enterobacter bacteremia for which he received at least 2 weeks of antibiotic therapy; repeat blood cultures have been negative; ID recommending to continue with IV cefepime at this time and monitor clinical course for further recommendations Objective - Vital Signs Vital signs: Vital Signs Temp 99.4 F 03/25/21 07:39 Pulse 78 03/25/21 08:24 Resp 16 03/25/21 08:24 BP 100/60 03/25/21 07:39 Pulse Ox 96 03/25/21 07:39 Intake & Output 03/24/21 03/25/21 03/25/21 18:59 06:59 18:59 Intake Total 400 900 Output Total 1100 1025 Balance -700 -125 Intake: Intake, IV Titration 900 Amount Sodium Chloride 0.9% 1, 900 000 ml @ 75 mls/hr IV . [id number] VICK Rx#:[id number] Oral 400 Output: Urine 1100 1025 Other: Voiding Method Urinal Urinal # Bowel Movements 1 - Exam GENERAL: The patient is alert and oriented x3, not in any acute distress. Well developed, well nourished. HEENT: Pupils are round and equally reacting to light. EOMI. No scleral icterus. No conjunctival pallor. Normocephalic, atraumatic. No pharyngeal erythema. No thyromegaly. CARDIOVASCULAR: S1 and S2 present. No murmurs, rubs, or gallops. PULMONARY: Chest is clear to auscultation, no wheezing or crackles. ABDOMEN: Soft, nontender, nondistended, normoactive bowel sounds. No palpable organomegaly. MUSCULOSKELETAL: No joint swelling or deformity. EXTREMITIES: Left below-knee amputation with wound VAC right lower extremity edema with the fifth toe gangrenous fall smelling discharge and a forefoot ulceration. NEUROLOGICAL: Gross neurological examination did not reveal any focal deficits. SKIN: As mentioned above - Labs CBC & Chem 7: 03/24/21 05:37 03/24/21 05:37 Labs: Abnormal Lab Results - Last 24 Hours (Table) 03/24/21 03/24/21 03/25/21 Range/Units 16:56 20:39 11:29 POC Glucose (mg/dL) 158 H 247 H 177 H (75-99) mg/dL Microbiology - Last 24 Hours (Table) 03/22/21 06:21 Blood Culture - Preliminary Blood No Growth after 72 hours 03/21/21 12:22 Blood Culture - Preliminary Blood No Growth after 72 hours Assessment and Plan Assessment: 1. Right foot fifth toe gangrene with osteomyelitis patient had multiple debridements in the past and patient is undergoing below-knee amputation patient had below-knee amputation on the left side as well. Continue with the above-mentioned antibiotics. Wound cultures are showing gram-negative bacilli and blood cultures showing Staphylococcus species enterococcus Enterobacter cloaca. Patient is being followed by infectious disease repeat blood cultures are showing no growth from yesterday. Further management as per infectious dis ease. 2. Acute renal failure secondary to diuretics which will be held and the Motrin will be held and patient will be continued on IV fluids. Basic metabolic profile tomorrow 3. Type 2 diabetes mellitus blood patient's blood sugars are low will change the insulin that is long-acting insulin from 15 units as his blood sugars started going up -Diabetic peripheral neuropathy continue gabapentin 4. Hypertension; stable with current regimen 5. Hypothyroidism; clinically euthyroid on current dose of levothyroxine 6. Patient had history of ischemic cardiomyopathy cardiac ejection fraction recovered as per the previous documentation by cardiology and patient has an AICD in place. DVT prophylaxis; SCDs/ chemical prophylaxis per surgery discretion CODE STATUS; full code
[2021-03-26 12:39] LABS: Anisocytosis Slight; Basophils # (A) 0.1 k/uL (0-0.2); Basophils % (A) 0 %; Eosinophils # (A) 0.5 k/uL (0-0.7); Eosinophils % (A) 4 %; HCT 29.5 % (39.0-53.0); HGB 9.7 gm/dL (13.0-17.5); Hypochromasia Slight; Lymphocytes # (A) 1.5 k/uL (1.0-4.8); Lymphocytes % (A) 11 %; MCH 26.4 pg (25.0-35.0); Mean Platelet Volume 7.2; Microcytosis Slight; Monocytes # (A) 0.8 k/uL (0-1.0); Monocytes % (A) 6 %; Neutrophils # (A) 10.8 k/uL (1.3-7.7); Neutrophils % (A) 78 %; Platelet Count 409 k/uL (150-450); RBC 3.69 m/uL (4.30-5.90); RDW 17.5 % (11.5-15.5); WBC 13.8 k/uL (3.8-10.6)
[2021-03-26 13:01] LABS: African American GFR (CKD) 63 (>60 ml/min/1.73 sqM); Anion Gap 5 mmol/L; Blood Urea Nitrogen 39 mg/dL (9-20); Calcium 7.7 mg/dL (8.4-10.2); Carbon Dioxide 26 mmol/L (22-30); Chloride 108 mmol/L (98-107); Glucose 127 mg/dL (74-99); Non-African American GFR(CKD) 54 (>60 ml/min/1.73 sqM); Potassium 4.2 mmol/L (3.5-5.1); Sodium 139 mmol/L (137-145)
[2021-03-26 16:35] LABS: Glucose,Whole Blood 197 mg/dL (75-99)
--- NOTE | 2021-03-26 18:34 | P.PN ---
Subjective Progress Note Date: 03/26/21 Principal diagnosis: Right foot fifth toe gangrene with osteomyelitis Patient is admitted for right foot infection gangrene and osteomyelitis of the right foot. Patient is undergoing a right below-knee amputation today. was admitted for sepsis secondary to right foot gangrene. Patient is presently on cefepime, clindamycin. Patient's creatinine is around 1.5 Motrin will be discontinued will discuss reviewed Lasix as well. Morphine will be switched to [place]. We'll hold off on losartan and continue with IV fluids. 03/24/2021 Patient is seen and examined at the bedside. He is postop day #2 for a right below the knee amputation. Patient is a previous left below-knee amputation. Patient blood sugars started going up as he started eating. Thing long-acting insulin dose to 15 units continue with sliding scale insulin. Continue with present antibiotics. ID on board and recommending to continue IV cefepime with plan for at least 2 weeks of antibiotic from date blood cultures turned negative. 03/25/2021 Patient is seen and evaluated in room at bedside; remains afebrile; vital signs reveal blood pressure 124/58, pulse 64, temperature 96.6 and SpO2 of 95% on room air Patient is status post right below-knee amputation for infected right diabetic foot wound; ID on board; not recommending long-term antibiotic therapy; patient did have an Enterobacter bacteremia for which he received at least 2 weeks of antibiotic therapy; repeat blood cultures have been negative; ID recommending to continue with IV cefepime at this time and monitor clinical course for further recommendations 03/26/2021 Patient is seen and evaluated in room at bedside; vital signs are reviewed and are stable Lab review reveals a WBC of 13.8, hemoglobin 9.7, sodium 139, potassium 4.2, BUN/creatinine of 39/1.37 Patient with right diabetic foot infection and is status post right below-knee amputation, ID on board and recommending no long-term antibiotics since infected part of the wound is removed with amputation; patient remains on IV cefepime and further recommendations for discharge antibiotic therapy from ID is pending Objective - Vital Signs Vital signs: Vital Signs Temp 98.2 F 03/26/21 07:26 Pulse 80 03/26/21 07:26 Resp 18 03/26/21 07:26 BP 131/61 06/27/21 07:26 Pulse Ox 98 03/26/21 07:26 Intake & Output 03/25/21 03/26/21 03/26/21 18:59 06:59 18:59 Output Total 400 1100 Balance -400 -1100 Output: Urine 400 1100 Other: Voiding Method Urinal Urinal Urinal # Bowel Movements 0 - Exam GENERAL: The patient is alert and oriented x3, not in any acute distress. Well developed, well nourished. HEENT: Pupils are round and equally reacting to light. EOMI. No scleral icterus. No conjunctival pallor. Normocephalic, atraumatic. No pharyngeal erythema. No thyromegaly. CARDIOVASCULAR: S1 and S2 present. No murmurs, rubs, or gallops. PULMONARY: Chest is clear to auscultation, no wheezing or crackles. ABDOMEN: Soft, nontender, nondistended, normoactive bowel sounds. No palpable organomegaly. MUSCULOSKELETAL: No joint swelling or deformity. EXTREMITIES: Left below-knee amputation with wound VAC right lower extremity edema with the fifth toe gangrenous fall smelling discharge and a forefoot ulceration. NEUROLOGICAL: Gross neurological examination did not reveal any focal deficits. SKIN: As mentioned above - Labs CBC & Chem 7: 03/26/21 12:29 03/26/21 12:29 Labs: Abnormal Lab Results - Last 24 Hours (Table) 03/22/21 03/25/21 03/25/21 Range/Units 08:50 16:17 20:25 POC Glucose (mg/dL) 187 H 227 H (75-99) mg/dL Crossmatch See Detail 03/26/21 03/26/21 Range/Units 06:48 11:25 POC Glucose (mg/dL) 119 H 172 H (75-99) mg/dL Crossmatch Microbiology - Last 24 Hours (Table) 03/22/21 06:21 Blood Culture - Preliminary Blood No Growth after 96 hours 03/21/21 12:22 Blood Culture - Preliminary Blood No Growth after 96 hours 03/20/21 14:45 Blood Culture Gram Stain - Final Blood Blood Culture - Final Staph hominis sub sp. hominis Assessment and Plan Assessment: 1. Right foot fifth toe gangrene with osteomyelitis patient had multiple debridements in the past and patient is undergoing below-knee amputation patient had below-knee amputation on the left side as well. Continue with the above- mentioned antibiotics. Wound cultures are showing gram-negative bacilli and blood cultures showing Staphylococcus species enterococcus Enterobacter cloaca. Patient is being followed by infectious disease repeat blood cultures are showing no growth from yesterday. Further management as per infectious disease. 2. Acute renal failure secondary to diuretics which will be held and the Motrin will be held and patient will be continued on IV fluids. Basic metabolic profile tomorrow 3. Type 2 diabetes mellitus blood patient's blood sugars are low will change the insulin that is long-acting insulin from 15 units as his blood sugars started going up -Diabetic peripheral neuropathy continue gabapentin 4. Hypertension; stable with current regimen 5. Hypothyroidism; clinically euthyroid on current dose of levothyroxine 6. Patient had history of ischemic cardiomyopathy cardiac ejection fraction recovered as per the previous documentation by cardiology and patient has an AICD in place. DVT prophylaxis; SCDs/ chemical prophylaxis per surgery discretion CODE STATUS; full code
[2021-03-26 21:13] LABS: Glucose,Whole Blood 271 mg/dL (75-99)
[2021-03-26] MEDS: INSULIN DETEMIR (LEVEMIR) 100 UNIT/ML SYR SQ SCH (21:35)
--- NOTE | 2021-03-26 23:52 | PN ---
PROGRESS NOTE DATE OF SERVICE: 03/26/2021 REASON FOR FOLLOWUP: Right diabetic foot infection with Enterobacter bacteremia. INTERVAL HISTORY: The patient is afebrile. The patient is breathing comfortably. Denies having any chest pain, shortness of breath or cough. No abdominal pain or any worsening pain to the right foot area. PHYSICAL EXAMINATION: Blood pressure 116/58 with a pulse of 78, temperature 98.2. He is 98% on room air. General description is a middle-aged male lying in bed in no distress. Respiratory system: Unlabored breathing, clear to auscultation anteriorly. Heart S1, S2. Regular rate and rhythm. Right BKA stump is currently dressed up. No obvious drainage on the dressing. LABS: Hemoglobin 11.4, white count 13.2, BUN of 39, creatinine 1.37. 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 However in view of bacteremia, to continue with cefepime while monitoring his white count closely. Continue supportive care. MMODL / IJN: [id number] /
[2021-03-27] MEDS: LEVOTHYROXINE 100 MCG TAB PO SCH (05:40)
[2021-03-27] MEDS: LEVOTHYROXINE 50 MCG TAB PO SCH (05:40)
[2021-03-27 07:13] LABS: Glucose,Whole Blood 57 mg/dL (75-99)
[2021-03-27 07:30] LABS: Glucose,Whole Blood 57 mg/dL (75-99)
[2021-03-27 07:47] LABS: Glucose,Whole Blood 90 mg/dL (75-99)
[2021-03-27] MEDS: INSULIN ASPART (NovoLOG) 100 UNIT/ML VIAL SQ SCH ×4 (08:25→20:49)
[2021-03-27] MEDS: ASPIRIN 81 MG PO SCH (08:27)
[2021-03-27] MEDS: FENOFIBRATE 160 MG TAB PO SCH (08:28)
[2021-03-27] MEDS: GABAPENTIN 100 MG CAP PO SCH ×3 (08:28→22:12)
[2021-03-27] MEDS: METOPROLOL TARTRATE 25 MG TAB PO SCH (08:28)
[2021-03-27] MEDS: FOLIC ACID 1 MG TAB PO SCH (08:28)
--- NOTE | 2021-03-27 08:39 | P.PN ---
Subjective Progress Note Date: 03/27/21 Principal diagnosis: Right foot infection, osteomyelitis, Charcot foot Patient seen and examined without any acute changes. Patient is status post right ylnrk-gxp-kfcz amputation. States his pain is well controlled. Infectious diseases on consult and recommending long-term antibiotics. He has been afebrile. Objective - Vital Signs Vital signs: Vital Signs Temp 98.1 F 03/27/21 07:53 Pulse 65 03/27/21 07:53 Resp 18 03/27/21 07:53 BP 138/81 03/27/21 07:53 Pulse Ox 95 03/27/21 07:53 Intake & Output 03/26/21 03/27/21 03/27/21 18:59 06:59 18:59 Intake Total 1080 Output Total 800 325 Balance 280 -325 Intake: Oral 1080 Output: Urine 800 325 Other: Voiding Method Urinal - Exam General appearance: The patient is alert, oriented, appears in no acute distress. HET: Head is normocephalic and atraumatic. Neck: Supple without lymphadenopathy. Trachea midline. Heart: S1 S2. Regular rate and rhythm. Lungs: Clear to auscultation. Abdomen: Soft, nontender, nondistended with bowel sounds. Extremities: Right rxuqg-pja-wuwy amputation stump with dressing intact. Left below the knee amputation with wound VAC intact. Neurological: No focal deficits. Alert and oriented 3. - Labs CBC & Chem 7: 03/26/21 12:29 03/26/21 12:29 Labs: Abnormal Lab Results - Last 24 Hours (Table) 03/26/21 03/26/21 03/26/21 Range/Units 11:25 12:29 12:29 WBC 13.8 H (3.8-10.6) k/uL RBC 3.69 L (4.30-5.90) m/uL Hgb 9.7 L (13.0-17.5) gm/dL Hct 29.5 L (39.0-53.0) % RDW 17.5 H (11.5-15.5) % Neutrophils # 10.8 H (1.3-7.7) k/uL Chloride 108 H (98-107) mmol/L BUN 39 H (9-20) mg/dL Creatinine 1.37 H (0.66-1.25) mg/dL Glucose 127 H (74-99) mg/dL POC Glucose (mg/dL) 172 H (75-99) mg/dL Calcium 7.7 L (8.4-10.2) mg/dL 03/26/21 03/26/21 03/27/21 Range/Units 16:34 21:10 07:12 WBC (3.8-10.6) k/uL RBC (4.30-5.90) m/uL Hgb (13.0-17.5) gm/dL Hct (39.0-53.0) % RDW (11.5-15.5) % Neutrophils # (1.3-7.7) k/uL Chloride (98-107) mmol/L BUN (9-20) mg/dL Creatinine (0.66-1.25) mg/dL Glucose (74-99) mg/dL POC Glucose (mg/dL) 197 H 271 H 57 L (75-99) mg/dL Calcium (8.4-10.2) mg/dL 03/27/21 Range/Units 07:29 WBC (3.8-10.6) k/uL RBC (4.30-5.90) m/uL Hgb (13.0-17.5) gm/dL Hct (39.0-53.0) % RDW (11.5-15.5) % Neutrophils # (1.3-7.7) k/uL Chloride (98-107) mmol/L BUN (9-20) mg/dL Creatinine (0.66-1.25) mg/dL Glucose (74-99) mg/dL POC Glucose (mg/dL) 57 L (75-99) mg/dL Calcium (8.4-10.2) mg/dL Microbiology - Last 24 Hours (Table) 03/21/21 12:22 Blood Culture - Preliminary Blood No Growth after 120 hours 03/22/21 06:21 Blood Culture - Preliminary Blood No Growth after 96 hours Assessment and Plan Assessment: 1. Postop day #5 right kclqn-cif-qvon amputation 2. Severe right foot infection 3. Chronic nonhealing wounds to right lower extremity with previous debridement 3. Gangrene of right fifth toe 4. Peripheral arterial disease 5. History of recent left below the knee amputation 6. Type 2 diabetes 7. Peripheral neuropathy 8. History of heart failure 9. Hypertension 10. Hyperlipidemia Plan: 1. Continue IV antibiotics 2. Wound VAC to be changed every 3 days to left BKA stump 3. Stump director physical and rigid dressing ordered 4. Continue medical management 5. Continue with physical therapy 6. Patient would like to be discharged home with home care and physical therapy 7. Daily dressing change with adaptic, 4x4, kerlix 8. Patient is cleared from vascular surgery for discharge once otherwise medically stable. Thank you for this consultation we will sign off at this time. The impression and plan of care has been dictated as directed. Dr. Armenta I performed a history and examination of this patient, discussed the same with the dictator. I agree with the dictator's note ,documented as a scribe. Any additional findings or plans will be noted.
[2021-03-27 08:46] LABS: Basophils # (A) 0.06 X 10*3/uL (0.00-0.10); Basophils % (A) 0.5 %; Eosinophils # (A) 0.62 X 10*3/uL (0.04-0.35); Eosinophils % (A) 5.1 %; HCT 28.1 % (39.6-50.0); HGB 8.7 g/dL (13.0-17.0); Lymphocytes # (A) 1.51 X 10*3/uL (0.90-5.00); Lymphocytes % (A) 12.4 %; MCH 25.6 pg (27.0-32.0); MCV 82.6 fL (80.0-97.0); Mean Platelet Volume 10.3 fL (9.5-12.2); Monocytes # (A) 0.93 X 10*3/uL (0.20-1.00); Monocytes % (A) 7.6 %; Neutrophils # (A) 8.98 X 10*3/uL (1.80-7.70); Neutrophils % (A) 73.8 %; Platelet Count 413 X 10*3/uL (140-440); RDW 18.7 % (11.5-14.5); WBC 12.17 X 10*3/uL (4.50-10.00)
[2021-03-27 09:46] LABS: African American GFR (CKD) 91.8 (60.0-200.0); Anion Gap 4.3 mmol/L (4.00-12.00); Calcium 7.8 mg/dL (8.7-10.3); Carbon Dioxide 26.7 mmol/L (21.6-31.8); Non-African American GFR(CKD) 79.2 (60.0-200.0); Potassium 4.3 mmol/L (3.5-5.5)
[2021-03-27] MEDS: CEFEPIME 2 GM in SODIUM CHLORIDE 0.9% 100 ML IVPB SCH ×2 (11:44→22:12)
[2021-03-27 12:07] LABS: Glucose,Whole Blood 117 mg/dL (75-99)
[2021-03-27] MEDS: SODIUM CHLORIDE 0.9% 1,000 ML IV SCH (12:26)
--- NOTE | 2021-03-27 14:49 | PN ---
PROGRESS NOTE DATE OF SERVICE: 03/27/2021 REASON FOR FOLLOWUP: Right diabetic foot infection with Enterobacter bacteremia. INTERVAL HISTORY: Patient is afebrile. The patient has been breathing comfortably. Denies any chest pain. No shortness of breath. No cough. No abdominal pain or diarrhea. PHYSICAL EXAMINATION: Blood pressure is 138/81, pulse of 85, temperature 98.1. He is 95% on room air. General description is a middle-aged male lying in bed in no distress. Respiratory system: Unlabored breathing. Clear to auscultation anteriorly. Heart S1, S2. Regular rate and rhythm. ABDOMEN: Soft, no tenderness. Right BKA stump is currently dressed. No drainage on the dressing. LABORATORY DATA: Repeat blood cultures have been negative. DIAGNOSTIC IMPRESSION AND PLAN: This patient with right diabetic foot infection with secondary bacteremia, Enterobacter. Local culture positive for Enterobacter bacteremia. Repeat blood culture negative with infected part removed and patient cleared his bacteremia. We will finish therapy with oral antibiotics. Continue supportive care., Prescription sent to the pharmacy and close outpatient followup. MMODL / IJN: [id number] /
[2021-03-27 16:46] LABS: Glucose,Whole Blood 158 mg/dL (75-99)
[2021-03-27 20:39] LABS: Glucose,Whole Blood 184 mg/dL (75-99)
[2021-03-27] MEDS: INSULIN DETEMIR (LEVEMIR) 100 UNIT/ML SYR SQ SCH (20:49)
[2021-03-28] MEDS: SODIUM CHLORIDE 0.9% 1,000 ML IV SCH (00:01)
[2021-03-28 02:52] VITALS: TEMP 98.2
[2021-03-28] MEDS: LEVOTHYROXINE 100 MCG TAB PO SCH (05:42)
[2021-03-28] MEDS: CEFEPIME 2 GM in SODIUM CHLORIDE 0.9% 100 ML IVPB SCH (05:42)
[2021-03-28] MEDS: LEVOTHYROXINE 50 MCG TAB PO SCH (05:42)
--- NOTE | 2021-03-28 07:07 | PN ---
PROGRESS NOTE 65-year-old white male remains on cefepime. He will be switched to oral antibiotics for discharge. He has had a wound VAC on his left leg status post amputation. His right leg appears to have sharee in it and is status post amputation on this admission. Remains on his Levemir, Synthroid, Lopressor. Wants to be discharged home tomorrow with his sister who will take care of him at home. Temperature 97.6, respiratory 14 to 18, blood pressure is 120 to 150s over 60s to 70s, O2 97 to 99 on room air. Cardiovascular: S1, S2. Lungs clear. GI soft. Hematology negative Homans. Psych: Fair mood and affect. Bilateral BKA. PROGNOSIS: Guarded but good. He will have to be set up with outpatient prosthesis once his stumps heal. Continue with wound VAC, oral antibiotics. Possible discharge home in the morning. MMODL / IJN: [id number] /
[2021-03-28 07:12] LABS: Glucose,Whole Blood 142 mg/dL (75-99)
[2021-03-28] MEDS: FOLIC ACID 1 MG TAB PO SCH (07:36)
[2021-03-28] MEDS: ASPIRIN 81 MG PO SCH (07:36)
[2021-03-28] MEDS: METOPROLOL TARTRATE 25 MG TAB PO SCH (07:36)
[2021-03-28] MEDS: GABAPENTIN 100 MG CAP PO SCH (07:36)
[2021-03-28] MEDS: INSULIN ASPART (NovoLOG) 100 UNIT/ML VIAL SQ SCH ×2 (07:36→12:30)
[2021-03-28] MEDS: FENOFIBRATE 160 MG TAB PO SCH (07:37)
[2021-03-28 07:57] VITALS: BP 137/75; PULSE 66; RESP 17
[2021-03-28 09:30] LABS: Basophils # (A) 0.07 X 10*3/uL (0.00-0.10); Basophils % (A) 0.7 %; Eosinophils # (A) 0.62 X 10*3/uL (0.04-0.35); Eosinophils % (A) 5.8 %; HCT 27.4 % (39.6-50.0); HGB 8.4 g/dL (13.0-17.0); Lymphocytes # (A) 1.89 X 10*3/uL (0.90-5.00); Lymphocytes % (A) 17.8 %; MCH 25.4 pg (27.0-32.0); MCHC 30.7 g/dL (32.0-37.0); MCV 82.8 fL (80.0-97.0); Mean Platelet Volume 10.6 fL (9.5-12.2); Monocytes # (A) 0.99 X 10*3/uL (0.20-1.00); Monocytes % (A) 9.3 %; Neutrophils # (A) 6.96 X 10*3/uL (1.80-7.70); Neutrophils % (A) 65.5 %; Platelet Count 380 X 10*3/uL (140-440); RBC 3.31 X 10*6/uL (4.40-5.60); RDW 18.9 % (11.5-14.5); WBC 10.63 X 10*3/uL (4.50-10.00)
[2021-03-28 11:39] LABS: Glucose,Whole Blood 216 mg/dL (75-99)
--- NOTE | 2021-03-28 13:50 | CDI ---
Documentation Clarification Form Date: 03/28/2021 01:20:04 PM From: Echo Irving RN CCDS Admit Date: 03/20/2021 05:14:00 PM Patient Name: Cruz Sorenson V Visit Number: [id number] Discharge Date: ATTENTION: The Clinical Documentation Specialists (CDI) and [facility] Coding Staff appreciate your assistance in clarifying documentation. Please respond to the clarification below the line at the bottom and electronically sign. The CDI & [facility] Coding staff will review the response and follow-up if needed. Please note: Queries are made part of the Legal Health Record. If you have any questions, please contact the author of this message via ITS. Dr. Johny Granado, Sepsis is documented Internal Medicine progress notes, 03/22, 03/23, 03/24, 03/25 & 03/26, but is not noted in subsequent documentation. Clarification is requested. History/Risk Factors: 65-year-old male presents to the ED with right foot ulcerations and having a fever of over 102. ED note 03/20. Medical History: DM2; HTN; CKD: recent left BKA and right foot diabetic wounds. H&P 03/21. Clinical Indicators: Patient was admitted for sepsis secondary to right foot gangrene. Internal Medicine progress notes 03/22, 03/23, 03/24, 03/25 & 03/26. VSS: B/P 92/60; HR 83; Temp 97.9 Oral F; RR 18; SpO2 98% ra Labs: 02/28 Wbc 14.5; Neutrophils Blood Culture: 03/22 Gram Positive Cocci Right Foot Culture: 03/22 Enterobacter cloacae. Treatment: 03/20 Ceftriaxone 1gm IVPB x 1; 03/21 Clindamycin 1gm IVPB Q8H d/c 03/23; 03/20 Vancomycin 1,500mg IVPB x1; 03/21 Vancomycin 1,500mg IVPB Daily d/c 03/21; 03/21 Daptomycin 500mg x 1; 03/21 Cefepime 2gm IVPB Q8H; 03/23 Cefepime 2gm IVPB Q12H changed on 03/27 Cefepime 2gm IVPB Q8H to current. Fluid bolus: 03/20 0.9NS 1L x 1 Please clarify if the Sepsis is: [ ] Sepsis confirmed, remains under treatment [ ] Sepsis confirmed, resolved [ ] Sepsis ruled out [ ] Other condition, please specify [ ] Unable to determine (Template Last Revised: November 2020) MTDD
[2021-03-28 14:10] LABS: African American GFR (CKD) 73.6 (60.0-200.0); Albumin 2.2 g/dL (3.80-4.90); Albumin/Globulin Ratio 0.81 (1.60-3.17); Anion Gap 2.1 mmol/L (4.00-12.00); BUN/Creat Ratio 33.33 Ratio (12.00-20.00); Calcium 7.7 mg/dL (8.7-10.3); Carbon Dioxide 30.9 mmol/L (21.6-31.8); Globulin 2.7 g/dL (1.6-3.3); Non-African American GFR(CKD) 63.5 (60.0-200.0); Potassium 4.3 mmol/L (3.5-5.5); Total Bilirubin 0.2 mg/dL (0.3-1.2); Total Protein 4.9 g/dL (6.2-8.2)
--- NOTE | 2021-03-30 06:44 | PN ---
PROGRESS NOTE ADDENDUM: Chronic diastolic heart failure with preserved ejection fraction. Sepsis is confirmed. MMODL / IJN: [id number] /
== END 2021-03-28 14:09 | disposition home or self-care (01) | DRG 853 ==
LOC: SUPCPDRO 12:43 → EC 12:43 → 4SSUR 17:14
PROVIDERS: ADMIT Family Medicine; ATTEND Family Medicine
PROC: 0Y6H0Z1 Detachment at Right Lower Leg, High, Open Approach (ICD-10-PCS; principal; 2021-03-22 10:30)
DX: A41.9 Sepsis, unspecified organism (principal); A48.0 Gas gangrene; N17.0 Acute kidney failure with tubular necrosis; E11.52 Type 2 diabetes mellitus with diabetic peripheral angiopathy with gangrene; I13.0 Hypertensive heart and chronic kidney disease with heart failure and stage 1 through stage 4 chronic kidney disease, or unspecified chronic kidney disease; E44.0 Moderate protein-calorie malnutrition; E87.1 Hypo-osmolality and hyponatremia; I50.32 Chronic diastolic (congestive) heart failure; L97.819 Non-pressure chronic ulcer of other part of right lower leg with unspecified severity; L97.419 Non-pressure chronic ulcer of right heel and midfoot with unspecified severity; I70.261 Atherosclerosis of native arteries of extremities with gangrene, right leg; M86.9 Osteomyelitis, unspecified; Z79.4 Long term (current) use of insulin; B96.89 Other specified bacterial agents as the cause of diseases classified elsewhere; D53.9 Nutritional anemia, unspecified; E03.9 Hypothyroidism, unspecified; E11.42 Type 2 diabetes mellitus with diabetic polyneuropathy; E11.610 Type 2 diabetes mellitus with diabetic neuropathic arthropathy; E11.621 Type 2 diabetes mellitus with foot ulcer; E11.628 Type 2 diabetes mellitus with other skin complications; E11.65 Type 2 diabetes mellitus with hyperglycemia; E11.22 Type 2 diabetes mellitus with diabetic chronic kidney disease; N18.30 Chronic kidney disease, stage 3 unspecified; Z20.822 Contact with and (suspected) exposure to COVID-19; E11.69 Type 2 diabetes mellitus with other specified complication; L97.519 Non-pressure chronic ulcer of other part of right foot with unspecified severity; Z87.891 Personal history of nicotine dependence; Z68.30 Body mass index [BMI] 30.0-30.9, adult; E66.9 Obesity, unspecified; E78.5 Hyperlipidemia, unspecified; H91.90 Unspecified hearing loss, unspecified ear; I25.2 Old myocardial infarction; M19.042 Primary osteoarthritis, left hand; M19.041 Primary osteoarthritis, right hand; I25.10 Atherosclerotic heart disease of native coronary artery without angina pectoris; I25.5 Ischemic cardiomyopathy; I48.0 Paroxysmal atrial fibrillation; T50.2X5A Adverse effect of carbonic-anhydrase inhibitors, benzothiadiazides and other diuretics, initial encounter; Z79.82 Long term (current) use of aspirin; Z79.890 Hormone replacement therapy; Z79.899 Other long term (current) drug therapy; Z82.3 Family history of stroke; Z82.49 Family history of ischemic heart disease and other diseases of the circulatory system; Z82.5 Family history of asthma and other chronic lower respiratory diseases; Z83.3 Family history of diabetes mellitus; Z89.512 Acquired absence of left leg below knee; Z91.19 Patient's noncompliance with other medical treatment and regimen; Z95.810 Presence of automatic (implantable) cardiac defibrillator; Z95.1 Presence of aortocoronary bypass graft; Z95.5 Presence of coronary angioplasty implant and graft; Z98.42 Cataract extraction status, left eye; Z98.41 Cataract extraction status, right eye; Z96.1 Presence of intraocular lens
CPT/HCPCS: 36415; 78315; 80048; 80053; 81001; 82565; 83605; 85025; 85027; 85652; 86140; 86850; 86900; 86901; 86920; 87040; 87070; 87077; 87186; 87205; 87635; 96365; 96367; 99284

== ENCOUNTER 2021-06-02 15:43 | Emergency (ER) | payer MEDICARE ==
[2021-06-02 17:04] LABS: Anisocytosis Slight; Basophils # (A) 0.1 k/uL (0-0.2); Basophils % (A) 1 %; Eosinophils # (A) 0.6 k/uL (0-0.7); Eosinophils % (A) 8 %; HCT 32.9 % (39.0-53.0); HGB 10.5 gm/dL (13.0-17.5); Hypochromasia Slight; Lymphocytes # (A) 1.4 k/uL (1.0-4.8); Lymphocytes % (A) 17 %; MCH 26.9 pg (25.0-35.0); MCV 84.1 fL (80.0-100.0); Mean Platelet Volume 7.9; Monocytes # (A) 0.5 k/uL (0-1.0); Monocytes % (A) 7 %; Neutrophils # (A) 5.4 k/uL (1.3-7.7); Neutrophils % (A) 67 %; Platelet Count 254 k/uL (150-450); RBC 3.92 m/uL (4.30-5.90); RDW 16.7 % (11.5-15.5); WBC 8.1 k/uL (3.8-10.6)
[2021-06-02 17:08] LABS: Albumin 2.8 g/dL (3.5-5.0); Calcium 8.7 mg/dL (8.4-10.2); INR 1.1 (<1.2); Partial Thromboplastin Time 24.3 sec (22.0-30.0); Potassium 4.5 mmol/L (3.5-5.1); Prothrombin Time 11.3 sec (9.0-12.0); Total Bilirubin 0.2 mg/dL (0.2-1.3)
[2021-06-02 17:27] VITALS: BP 180/75; PULSE 71; RESP 20; TEMP 98.2
--- NOTE | 2021-06-02 18:05 | XR ---
EXAMINATION TYPE: XR chest 2V DATE OF EXAM: 06/02/2021 COMPARISON: 02/21/2021 HISTORY: Cough and pain TECHNIQUE: 2 views FINDINGS: There is some blunting of the left costophrenic angle. Heart size is normal. There is left axillary pacemaker. There are sternal wires. Bony thorax is intact. There is no heart failure. IMPRESSION: There is some pleural reaction and atelectasis at the left lung base that is consistent w ith scarring and not significantly different than old exam. No acute lung disease. Normal heart.
--- NOTE | 2021-06-02 19:17 | ED ---
General Adult HPI - General Chief complaint: Recheck/Abnormal Lab/Rx Stated complaint: Chest pain Time Seen by Provider: 06/02/21 15:50 Source: patient Mode of arrival: wheelchair Limitations: no limitations - History of Present Illness Initial comments: Patient is a 65-year-old male with multiple medical conditions including coronary artery disease with bypass, pacemaker and ICD placement. He presents to the emergency room with redness around his pacemaker site. States that he had his unit replaced on April [address] Bowman. Admits he had issues with delayed healing. Has been wearing a Steri-Strip strip over the most medial aspect where his wound was slightly opened. States that that has finally healed up. Over the past month patient has had some redness around the pacemaker site. He saw Dr. Henderson in office 3 weeks ago who instructed him that he needs to see Dr. Bowman. He states that he has been attempting to see him in office however has not had any success therefore he decided to come into the emergency room for evaluation. States the redness has improved over the past 3 weeks. He has mild tenderness to the site however feels as if he has been overusing his upper extremities - sleeps with his arms above his head for which he was told to not elevate the left arm above his shoulder. Also since he is wheelchair bound, he needs to transfer himself and therefore puts more than 10 lbs of pressure on his left arm. He denies any fevers or chills. No cough. Denies chest pain or palpitations. No other alleviating, precipitating or modifying factors - Related Data Home Medications Medication Instructions Recorded Confirmed Fenofibrate 160 mg PO DAILY 03/31/14 06/02/21 Insulin Lispro [humaLOG Kwikpen] See Protocol SQ AC-TID PRN 03/31/14 06/02/21 Atorvastatin [Lipitor] 40 mg PO DAILY 05/24/20 06/02/21 Metoprolol Tartrate 25 mg PO TID 05/24/20 06/02/21 Ergocalciferol (Vitamin D2) 1,250 mcg PO MO 06/02/21 06/02/21 [Drisdol (50,000 Iu)] Insulin Glargine,Hum.rec.anlog 20 units SQ HS 06/02/21 06/02/21 [Toujeo Solostar] Levothyroxine Sodium [Synthroid] 50 mcg PO DAILY 06/02/21 06/02/21 Levothyroxine Sodium [Synthroid] 200 mcg PO DAILY 06/02/21 06/02/21 Losartan [Cozaar] 50 mg PO DAILY 06/02/21 06/02/21 Previous Rx's Medication Instructions Recorded Aspirin 81 mg PO DAILY 90 Days #90 chew 12/16/20 Folic Acid 1 mg PO DAILY 90 Days #90 tab 12/27/20 Cephalexin [Keflex] 500 mg PO Q8HR 1 Days #21 cap 06/02/21 Allergies Allergy/AdvReac Type Severity Reaction Status Date / Time No Known Allergies Allergy Verified 06/02/21 15:51 Review of Systems ROS Statement: Those systems with pertinent positive or pertinent negative responses have been documented in the HPI. ROS Other: All systems not noted in ROS Statement are negative. Past Medical History Past Medical History: Heart Failure, Diabetes Mellitus, Diabetes Mellitus, Eye Disorder, GERD/Reflux, Hearing Disorder / Deafness, Hyperlipidemia, Hypertension, Myocardial Infarction ([place]), Osteoarthritis (OA), Renal Disease, Skin Disorder, Thyroid Disorder Additional Past Medical History / Comment(s): IDDM type II, neuropathy bilateral hands/forearms/lower legs/feet, WCC pt, bilateral leg edema, [place]. wounds right foot w/wound vac, ischemic cardiomyopathy/AICD, vtach, past medical record documents paroxysmal Afib/pt does not recall this, bilateral lower leg intermittent claudication/PAD, chronic renal disease stage III, anemia- transfusion in December per pt., bilateral tinnitis/[place], hypothyroidchronic renal disease stage III, anemia, bilateral tinnitis/[place], hypothyroid, arthritis bila teral hands with R hand worse, Last Myocardial Infarction Date:: 2006 History of Any Multi-Drug Resistant Organisms: None Reported Past Surgical History: AICD, Coronary Bypass/CABG, Heart Catheterization, Heart Catheterization With Stent, Pacemaker Additional Past Surgical History / Comment(s): PCI with one stent 2006 CABG 3 vessel and AICD, DFTs, aortagram with runoff, colonoscopy, bilateral cataract removals/lens implants, multiple debridements of wounds, left bka Past Anesthesia/Blood Transfusion Reactions: No Reported Reaction Date of Last Stent Placement:: 1998 Type of Cardiac Device: Permanent Pacemaker, AICD Device Placement Date:: 2006 Past Psychological History: No Psychological Hx Reported Smoking Status: Former smoker Past Alcohol Use History: None Reported Past Drug Use History: None Reported - Past Family History Sister(s) Additional Family Medical History / Comment(s): Pt has a sister with COPD, another sister with diabetes/copd/htn and another sister with diabetes. Father Family Medical History: Myocardial Infarction ([place]) Additional Family Medical History / Comment(s): Father of a [place] at the age of 75 yrs. Brother(s) Family Medical History: Coronary Artery Disease (CAD), CVA/TIA, Diabetes Mellitus, Myocardial Infarction ([place]) Additional Family Medical History / Comment(s): One brother had a [place] at 38yrs and at age 48yrs. Another brother is alive and had a stroke. Mother Family Medical History: Diabetes Mellitus, Renal Disease Additional Family Medical History / Comment(s): Mother at age 62 from renal failure General Exam Limitations: no limitations General appearance: alert, in no apparent distress Head exam: Present: atraumatic, normocephalic, normal inspection Eye exam: Present: normal appearance, PERRL, EOMI. Absent: scleral icterus, conjunctival injection, periorbital swelling ENT exam: Present: normal exam, mucous membranes moist Neck exam: Present: normal inspection. Absent: tenderness, meningismus, lymphadenopathy Respiratory exam: Present: normal lung sounds bilaterally, chest wall tenderness (redness with flaking skin over the lateral aspect of the pacemaker. No palpable fluid. No open skin around unit. Incision is fully closed, clean, dry. No crepitance). Absent: respiratory distress, wheezes, rales, rhonchi, stridor Cardiovascular Exam: Present: regular rate, normal rhythm, normal heart sounds. Absent: systolic murmur, diastolic murmur, rubs, gallop, clicks GI/Abdominal exam: Present: soft, normal bowel sounds. Absent: distended, tenderness, guarding, rebound, rigid Extremities exam: Present: other (b/l le bka). Absent: tenderness, pedal edema, joint swelling, calf tenderness Back exam: Present: normal inspection Neurological exam: Present: alert, oriented X3, CN II-XII intact Psychiatric exam: Present: normal affect, normal mood Skin exam: Present: warm, dry, intact, normal color. Absent: rash Course Vital Signs 06/02/21 06/02/21 15:48 17:10 Temperature 98.2 F Pulse Rate 73 71 Respiratory 16 20 Rate Blood Pressure 170/68 180/75 O2 Sat by Pulse 96 99 Oximetry EKG Findings - EKG Comments: EKG Findings:: EKG demonstrates electronic ventricular pacemaker. Rate of 72. WV interval 134. QRS 140. QTC of 488. Pacemaker captures appropriately. Negative for sgarbossa criteria Medical Decision Making - Medical Decision Making Upon arrival the patient is placed in room 18. A thorough history and physical exam is performed. Laboratory studies conducted under [facility] labs. White count normal. Troponin is negative. Chest x-ray demonstrates some pleural reaction and atelectasis at the left lung base consistent with scarring. A 12-lead EKG demonstrates that the pacemaker is capturing appropriately. Spoke with Dr. Garcia who requested the patient be placed on Keflex TID and follow up with Dr. Bowman. Discussed this with the patient who agreed to the treatment plan. Requested the patient follow-up for any new or worsening symptoms. Patient discharged in stable condition - Lab Data Result diagrams: 06/02/21 16:34 06/02/21 16:34 Lab Results 06/02/21 06/02/21 06/02/21 Range/Units 16:34 16:34 16:34 WBC 8.1 (3.8-10.6) k/uL RBC 3.92 L (4.30-5.90) m/uL Hgb 10.5 L (13.0-17.5) gm/dL Hct 32.9 L (39.0-53.0) % MCV 84.1 (80.0-100.0) fL MCH 26.9 (25.0-35.0) pg MCHC 32.0 (31.0-37.0) g/dL RDW 16.7 H (11.5-15.5) % Plt Count 254 (150-450) k/uL MPV 7.9 Neutrophils % 67 % Lymphocytes % 17 % Monocytes % 7 % Eosinophils % 8 % Basophils % 1 % Neutrophils # 5.4 (1.3-7.7) k/uL Lymphocytes # 1.4 (1.0-4.8) k/uL Monocytes # 0.5 (0-1.0) k/uL Eosinophils # 0.6 (0-0.7) k/uL Basophils # 0.1 (0-0.2) k/uL Hypochromasia Slight Anisocytosis Slight PT 11.3 (9.0-12.0) sec INR 1.1 (<1.2) APTT 24.3 (22.0-30.0) sec Sodium 139 (137-145) mmol/L Potassium 4.5 (3.5-5.1) mmol/L Chloride 106 (98-107) mmol/L Carbon Dioxide 28 (22-30) mmol/L Anion Gap 5 mmol/L BUN 26 H (9-20) mg/dL Creatinine 1.42 H (0.66-1.25) mg/dL Est GFR (CKD-EPI)AfAm 60 (>60 ml/min/1.73 sqM) Est GFR (CKD-EPI)NonAf 52 (>60 ml/min/1.73 sqM) Glucose 190 H (74-99) mg/dL Calcium 8.7 (8.4-10.2) mg/dL Total Bilirubin 0.2 (0.2-1.3) mg/dL AST 24 (17-59) U/L ALT 9 (4-49) U/L Alkaline Phosphatase 84 (38-126) U/L Troponin I (0.000-0.034) ng/mL Total Protein 6.0 L (6.3-8.2) g/dL Albumin 2.8 L (3.5-5.0) g/dL 06/02/21 Range/Units 16:34 WBC (3.8-10.6) k/uL RBC (4.30-5.90) m/uL Hgb (13.0-17.5) gm/dL Hct (39.0-53.0) % MCV (80.0-100.0) fL MCH (25.0-35.0) pg MCHC (31.0-37.0) g/dL RDW (11.5-15.5) % Plt Count (150-450) k/uL MPV Neutrophils % % Lymphocytes % % Monocytes % % Eosinophils % % Basophils % % Neutrophils # (1.3-7.7) k/uL Lymphocytes # (1.0-4.8) k/uL Monocytes # (0-1.0) k/uL Eosinophils # (0-0.7) k/uL Basophils # (0-0.2) k/uL Hypochromasia Anisocytosis PT (9.0-12.0) sec INR (<1.2) APTT (22.0-30.0) sec Sodium (137-145) mmol/L Potassium (3.5-5.1) mmol/L Chloride (98-107) mmol/L Carbon Dioxide (22-30) mmol/L Anion Gap mmol/L BUN (9-20) mg/dL Creatinine (0.66-1.25) mg/dL Est GFR (CKD-EPI)AfAm (>60 ml/min/1.73 sqM) Est GFR (CKD-EPI)NonAf (>60 ml/min/1.73 sqM) Glucose (74-99) mg/dL Calcium (8.4-10.2) mg/dL Total Bilirubin (0.2-1.3) mg/dL AST (17-59) U/L ALT (4-49) U/L Alkaline Phosphatase (38-126) U/L Troponin I <0.012 (0.000-0.034) ng/mL Total Protein (6.3-8.2) g/dL Albumin (3.5-5.0) g/dL Disposition Clinical Impression: Pacemaker complications, Cellulitis Disposition: HOME SELF-CARE Condition: Stable Instructions (If sedation given, give patient instructions): Cellulitis (ED) Additional Instructions: Please follow up with your PCP in 2-4 days. Follow up with Dr. Bowman in 1 week. Take the antibioitic 3 times daily. Return to the ED for any new or worsening symptoms. Prescriptions: Cephalexin [Keflex] 500 mg PO Q8HR 1 Days #21 cap Is patient prescribed a controlled substance at d/c from ED?: No Referrals: Johny Granado MD [Primary Care Provider] - 1-2 days Maico Bowman MD [STAFF PHYSICIAN] - 1-2 days Time of Disposition: 19:24
== END 2021-06-02 19:53 | disposition home or self-care (01) ==
LOC: EC 15:43
DX: T82.897A Other specified complication of cardiac prosthetic devices, implants and grafts, initial encounter (principal); L03.313 Cellulitis of chest wall; I13.0 Hypertensive heart and chronic kidney disease with heart failure and stage 1 through stage 4 chronic kidney disease, or unspecified chronic kidney disease; E11.22 Type 2 diabetes mellitus with diabetic chronic kidney disease; N18.30 Chronic kidney disease, stage 3 unspecified; I50.9 Heart failure, unspecified; K21.9 Gastro-esophageal reflux disease without esophagitis; E11.36 Type 2 diabetes mellitus with diabetic cataract; E78.5 Hyperlipidemia, unspecified; I25.2 Old myocardial infarction; I25.5 Ischemic cardiomyopathy; I48.0 Paroxysmal atrial fibrillation; I25.10 Atherosclerotic heart disease of native coronary artery without angina pectoris; M19.90 Unspecified osteoarthritis, unspecified site; E07.9 Disorder of thyroid, unspecified; Z95.0 Presence of cardiac pacemaker; Z79.4 Long term (current) use of insulin; Z87.891 Personal history of nicotine dependence; Z79.82 Long term (current) use of aspirin; Z95.1 Presence of aortocoronary bypass graft; Z89.512 Acquired absence of left leg below knee; Z79.899 Other long term (current) drug therapy; Y84.9 Medical procedure, unspecified as the cause of abnormal reaction of the patient, or of later complication, without mention of misadventure at the time of the procedure
CPT/HCPCS: 36415; 71046; 80053; 84484; 85025; 85610; 85730; 93005; 99284

== ENCOUNTER 2021-07-25 17:09 | Emergency (ER) | payer MEDICARE ==
--- NOTE | 2021-07-25 18:54 | XR ---
EXAMINATION TYPE: XR chest 2V DATE OF EXAM: 07/25/2021 COMPARISON: 06/02/2021 HISTORY: Short of breath TECHNIQUE: 2 views FINDINGS: There is blunting left costophrenic angle. There are sternal wires. There is left axillary pacemaker. Right lung is clear. IMPRESSION: Left pleural effusion increased compared to old exam. No obvious heart failure.
[2021-07-25] MEDS ORDERED: CASIRIVIMAB (REGN10933) (EUA) 600 MG, IMDEVIMAB (REGN10987) (EUA) 600 MG in SODIUM CHLO... IVPB ONE (20:00)
[2021-07-25] MEDS ORDERED: SODIUM CHLORIDE 0.9% 50 ML IVPB ONE (20:00)
[2021-07-25] MEDS ORDERED: ACETAMINOPHEN TAB 325 MG TAB PO STA (20:37)
[2021-07-25] MEDS ORDERED: IBUPROFEN 600 MG TAB PO STA (20:37)
--- NOTE | 2021-07-25 20:39 | ED ---
URI HPI - General Chief Complaint: Upper Respiratory Infection Stated Complaint: Cough/Congestion/Fever Time Seen by Provider: 07/25/21 19:02 Source: patient, RN notes reviewed Mode of arrival: wheelchair Limitations: no limitations - History of Present Illness Initial Comments: Patient is a 65-year-old male that presents to emergency room complaining of cough, sneezing and nasal discharge. He notes his is Covid-positive she can emergency room to get tested. Patient was otherwise well-appearing. He does have a significant medical history of bilateral lower leg amputation. He denied chest pain shortness of breath headache nausea vomiting diarrhea constipation fever fatigue chills. - Related Data Home Medications Medication Instructions Recorded Confirmed Fenofibrate 160 mg PO DAILY 03/31/14 07/25/21 Insulin Lispro [humaLOG Kwikpen] See Protocol SQ AC-TID 03/31/14 07/25/21 Atorvastatin [Lipitor] 40 mg PO DAILY 05/24/20 07/25/21 Metoprolol Tartrate 75 mg PO DAILY 05/24/20 07/25/21 Ergocalciferol (Vitamin D2) 1,250 mcg PO MO 06/02/21 07/25/21 [Drisdol (50,000 Iu)] Insulin Glargine,Hum.rec.anlog 20 units SQ HS 06/02/21 07/25/21 [Toujeo Solostar] Levothyroxine Sodium [Synthroid] 50 mcg PO DAILY 06/02/21 07/25/21 Levothyroxine Sodium [Synthroid] 200 mcg PO DAILY 06/02/21 07/25/21 Losartan [Cozaar] 50 mg PO DAILY 06/02/21 07/25/21 Insulin Lispro [humaLOG Kwikpen] 5 unit SQ AC-TID 07/25/21 07/25/21 Previous Rx's Medication Instructions Recorded Aspirin 81 mg PO DAILY 90 Days #90 chew 12/16/20 Folic Acid 1 mg PO DAILY 90 Days #90 tab 12/27/20 Allergies Allergy/AdvReac Type Severity Reaction Status Date / Time No Known Allergies Allergy Verified 07/25/21 19:54 Review of Systems ROS Statement: Those systems with pertinent positive or pertinent negative responses have been documented in the HPI. ROS Other: All systems not noted in ROS Statement are negative. Past Medical History Past Medical History: Heart Failure, Diabetes Mellitus, Diabetes Mellitus, Eye Disorder, GERD/Reflux, Hearing Disorder / Deafness, Hyperlipidemia, Hypertension, Myocardial Infarction ([place]), Osteoarthritis ([place]), Renal Disease, Skin Disorder, Thyroid Disorder Additional Past Medical History / Comment(s): IDDM type II, neuropathy bilateral hands/forearms/lower legs/feet, WCC pt, bilateral leg edema, [place]. wounds right foot w/wound vac, ischemic cardiomyopathy/AICD, vtach, past medical record documents paroxysmal Afib/pt does not recall this, bilateral lower leg intermittent claudication/PAD, chronic renal disease stage III, anemia- transfusion in December per pt., bilateral tinnitis/[place], hypothyroidchronic renal disease stage III, anemia, bilateral tinnitis/[place], hypothyroid, arthritis bilateral hands with R hand worse, Last Myocardial Infarction Date:: 2006 History of Any Multi-Drug Resistant Organisms: None Reported Past Surgical History: AICD, Coronary Bypass/CABG, Heart Catheterization, Heart Catheterization With Stent, Pacemaker Additional Past Surgical History / Comment(s): PCI with one stent 1998, 2006 CABG 3 vessel and AICD, DFTs, aortagram with runoff, colonoscopy, bilateral cataract removals/lens implants, multiple debridements of wounds, left bka Past Anesthesia/Blood Transfusion Reactions: No Reported Reaction Date of Last Stent Placement:: 1998 Type of Cardiac Device: Permanent Pacemaker, AICD Device Placement Date:: 2006 Past Psychological History: No Psychological Hx Reported Smoking Status: Former smoker Past Alcohol Use History: None Reported Past Drug Use History: None Reported - Past Family History Sister(s) Additional Family Medical History / Comment(s): Pt has a sister with COPD, another sister with diabetes/copd/htn and another sister with diabetes. Father Family Medical History: Myocardial Infarction ([place]) Additional Family Medical History / Comment(s): Father of a [place] at the age of 75 yrs. Brother(s) Family Medical History: Coronary Artery Disease (CAD), CVA/TIA, Diabetes Mellitus, Myocardial Infarction ([place]) Additional Family Medical History / Comment(s): One brother had a [place] at 38yrs and at age 48yrs. Another brother is alive and had a stroke. Mother Family Medical History: Diabetes Mellitus, Renal Disease Additional Family Medical History / Comment(s): Mother at age 62 from renal failure General Exam Limitations: no limitations General appearance: alert, in no apparent distress Head exam: Present: atraumatic, normocephalic, normal inspection Eye exam: Present: normal appearance, PERRL, EOMI. Absent: scleral icterus, conjunctival injection, periorbital swelling ENT exam: Present: normal exam, mucous membranes moist Neck exam: Present: normal inspection Respiratory exam: Present: normal lung sounds bilaterally. Absent: respiratory distress, wheezes, rales, rhonchi, stridor Cardiovascular Exam: Present: regular rate, normal rhythm, normal heart sounds. Absent: systolic murmur, diastolic murmur, rubs, gallop, clicks GI/Abdominal exam: Present: soft, normal bowel sounds. Absent: distended, tenderness, guarding, rebound, rigid Extremities exam: Present: normal inspection, full ROM, normal capillary refill, other (Bilateral [id number] amputation). Absent: tenderness, pedal edema, joint swelling, calf tenderness Neurological exam: Present: alert, oriented X3 Psychiatric exam: Present: normal affect, normal mood Skin exam: Present: warm, dry, intact, normal color. Absent: rash Course Vital Signs 07/25/21 07/25/21 17:32 20:38 Temperature 101.4 F H 99.8 F H Pulse Rate 77 68 Respiratory 19 18 Rate Blood Pressure 145/73 145/68 O2 Sat by Pulse 94 L 93 L Oximetry Medical Decision Making - Medical Decision Making 65-year-old male wanting Covid testing due to exposure to positive . Covid test ordered. Covid test positive. Patient wishes to undergo monoclonal antibody infusion as she does meet criteria. Patient can discharge home after monoclonal antibody infusion. Case discussed with Dr. Bello, patient can discharge home. - Lab Data Lab Results 07/25/21 Range/Units 17:39 Influenza Type A (PCR) Not Detected (Not Detectd) Influenza Type B (PCR) Not Detected (Not Detectd) RSV (PCR) Not Detected (Not Detectd) SARS-CoV-2 (PCR) Detected A (Not Detectd) - Radiology Data Radiology results: report reviewed, image reviewed Chest x-ray: Left pleural effusion increased compared to old exam. No obvious heart failure. Disposition Clinical Impression: COVID Disposition: HOME SELF-CARE Condition: Stable Instructions (If sedation given, give patient instructions): Coronavirus Disease 2019 (COVID-19) Additional Instructions: Please return to the Emergency Department if symptoms worsen or any other concerns. Follow-up with primary care 1-2 days. Quarantine per CDC guidelines. Tylenol Motrin alternating every 3 hours for fever. Is patient prescribed a controlled substance at d/c from ED?: No Referrals: Johny Granado MD [Primary Care Provider] - 1-2 days Time of Disposition: 21:09
[2021-07-25 20:41] VITALS: RESP 18
[2021-07-25 22:22] VITALS: BP 112/55; PULSE 61; TEMP 99.4
== END 2021-07-25 22:23 | disposition home or self-care (01) ==
LOC: EC 17:09
DX: U07.1 COVID-19 (principal); I11.0 Hypertensive heart disease with heart failure; I50.9 Heart failure, unspecified; E11.36 Type 2 diabetes mellitus with diabetic cataract; K21.9 Gastro-esophageal reflux disease without esophagitis; E78.5 Hyperlipidemia, unspecified; I25.2 Old myocardial infarction; M19.90 Unspecified osteoarthritis, unspecified site; E07.9 Disorder of thyroid, unspecified; I48.0 Paroxysmal atrial fibrillation; I25.5 Ischemic cardiomyopathy; Z79.4 Long term (current) use of insulin; Z79.82 Long term (current) use of aspirin; Z95.1 Presence of aortocoronary bypass graft; Z95.0 Presence of cardiac pacemaker; Z89.512 Acquired absence of left leg below knee; Z87.891 Personal history of nicotine dependence
CPT/HCPCS: 99283 ×2; 96365; 87636; 71046; M0243; Q0243

== ENCOUNTER → 2022-05-03 | Outpatient (CLI) | payer MEDICARE ==
--- NOTE | 2022-05-04 13:32 | XR ---
Left leg HISTORY: Nonpressure ulcer Frontal and lateral views of the left leg Patient is status post below-knee amputation. Suspect there is soft tissue swelling. Surgical clips a re present in the soft tissues medially. Osteoarthritic change noted in the left knee. Somewhat perme ative pattern of the cortex of the distal tibial remnant is noted. No definite periosteal reaction. S oft tissue vascular calcifications are noted. There is patella paulette. IMPRESSION: Edema, correlate for cellulitis. Patella paulette. Postop changes. Suspect decreased bone min eralization possibly due to to disuse. Additional findings above.
== END | disposition home or self-care (01) ==
LOC: RADXRMAIN 15:48
PROVIDERS: ATTEND Nurse Practitioner Family
DX: L97.912 Non-pressure chronic ulcer of unspecified part of right lower leg with fat layer exposed (principal)

== ENCOUNTER 2022-07-18 12:14 | Inpatient (IN) | payer MEDICARE ==
[2022-07-18] MEDS ORDERED: ONDANSETRON 4 MG/2 ML VIAL IVP STA (13:23)
[2022-07-18] MEDS ORDERED: SODIUM CHLORIDE 0.9% 1,000 ML IV STA (13:23)
[2022-07-18 15:05] LABS: Basophils # (A) 0.1 k/uL (0-0.2); Basophils % (A) 1 %; Eosinophils # (A) 0.2 k/uL (0-0.7); Eosinophils % (A) 2 %; HGB 11.5 gm/dL (13.0-17.5); Lymphocytes # (A) 1.2 k/uL (1.0-4.8); Lymphocytes % (A) 13 %; MCHC 33.8 g/dL (31.0-37.0); MCV 85.7 fL (80.0-100.0); Mean Platelet Volume 8.8; Monocytes # (A) 0.4 k/uL (0-1.0); Monocytes % (A) 4 %; Neutrophils # (A) 7.7 k/uL (1.3-7.7); Neutrophils % (A) 79 %; Platelet Count 179 k/uL (150-450); RBC 3.97 m/uL (4.30-5.90); RDW 14.9 % (11.5-15.5); WBC 9.6 k/uL (3.8-10.6)
[2022-07-18 15:09] LABS: Appearance,Urine Clear (Clear); Bilirubin,Urine Negative (Negative); Blood,Urine Trace (Negative); Color,Urine Light Yellow; Glucose,Urine (UA) 4+ (Negative); Ketones,Urine Negative (Negative); Leukocyte Esterase,Urine Negative (Negative); Nitrite,Urine Negative (Negative); Protein,Urine 1+ (Negative); RBC,Urine 2 /hpf (0-5); Specific Gravity,Urine 1.013 (1.001-1.035); Urobilinogen,Urine <2.0 mg/dL (<2.0); WBC,Urine <1 /hpf (0-5)
--- NOTE | 2022-07-18 15:10 | ED ---
Abdominal Pain HPI - General Chief Complaint: Abdominal Pain Stated Complaint: right side pain, vomiting Time Seen by Provider: 07/18/22 13:12 Source: patient, family, RN notes reviewed Mode of arrival: wheelchair Limitations: no limitations - History of Present Illness Initial Comments: This is a 66-year-old male who presents to the emergency department for abdominal pain. Patient states that he has had pain on the right side of his abdomen that began this morning with associated nausea and vomiting. He does report associated diarrhea as well. States that the stool is dark, however he has not noticed any nighat blood. Denies any history of similar symptoms in the past. Denies any fevers, chills, sore throat, chest pain, palpitations, diarrhea, back pain, or headaches. MD Complaint: abdominal pain Location: RLQ - Related Data Home Medications Medication Instructions Recorded Confirmed Fenofibrate 160 mg PO DAILY 03/31/14 07/18/22 Insulin Lispro [humaLOG Kwikpen] See Protocol SQ AC-TID 03/31/14 07/18/22 Atorvastatin [Lipitor] 40 mg PO DAILY 05/24/20 07/18/22 Metoprolol Tartrate 25 mg PO TID 05/24/20 07/18/22 Ergocalciferol (Vitamin D2) 1,250 mcg PO MO 06/02/21 07/18/22 [Drisdol (50,000 Iu)] Insulin Glargine,Hum.rec.anlog 30 units SQ HS 06/02/21 07/18/22 [Toujeo Solostar] Levothyroxine Sodium [Synthroid] 50 mcg PO DAILY 06/02/21 07/18/22 Levothyroxine Sodium [Synthroid] 200 mcg PO DAILY 06/02/21 07/25/21 Losartan [Cozaar] 50 mg PO DAILY 06/02/21 07/18/22 Insulin Lispro [humaLOG Kwikpen] 5 unit SQ AC-TID 07/25/21 07/18/22 Finerenone [Kerendia] 10 mg PO HS 07/18/22 07/18/22 Furosemide [Lasix] 40 mg PO BID 07/18/22 07/18/22 Omeprazole 40 mg PO DAILY 07/18/22 07/18/22 Previous Rx's Medication Instructions Recorded Aspirin 81 mg PO DAILY 90 Days #90 chew 12/16/20 Folic Acid 1 mg PO DAILY 90 Days #90 tab 12/27/20 Allergies Allergy/AdvReac Type Severity Reaction Status Date / Time No Known Allergies Allergy Verified 07/18/22 14:56 Review of Systems ROS Statement: Those systems with pertinent positive or pertinent negative responses have been documented in the HPI. ROS Other: All systems not noted in ROS Statement are negative. Past Medical History Past Medical History: Heart Failure, Diabetes Mellitus, Diabetes Mellitus, Eye Disorder, GERD/Reflux, Hearing Disorder / Deafness, Hyperlipidemia, Hyp ertension, Myocardial Infarction (MA), Osteoarthritis (OA), Renal Disease, Skin Disorder, Thyroid Disorder Additional Past Medical History / Comment(s): IDDM type II, neuropathy bilateral hands/forearms/lower legs/feet, WCC pt, bilateral leg edema, [place]. wounds right foot w/wound vac, ischemic cardiomyopathy/AICD, vtach, past medical record documents paroxysmal Afib/pt does not recall this, bilateral lower leg intermittent claudication/PAD, chronic renal disease stage III, anemia- transfusion in December per pt., bilateral tinnitis/[place], hypothyroidchronic renal disease stage III, anemia, bilateral tinnitis/[place], hypothyroid, arthritis bilateral hands with R hand worse, Last Myocardial Infarction Date:: 2006 History of Any Multi-Drug Resistant Organisms: None Reported Past Surgical History: AICD, Coronary Bypass/CABG, Heart Catheterization, Heart Catheterization With Stent, Pacemaker Additional Past Surgical History / Comment(s): PCI with one stent 1998, 2006 CABG 3 vessel and AICD, DFTs, aortagram with runoff, colonoscopy, bilateral cataract removals/lens implants, multiple debridements of wounds, left bka Past Anesthesia/Blood Transfusion Reactions: No Reported Reaction Date of Last Stent Placement:: 1998 Type of Cardiac Device: Permanent Pacemaker, AICD Device Placement Date:: 2006 Past Psychological History: No Psychological Hx Reported Smoking Status: Former smoker Past Alcohol Use History: None Reported Past Drug Use History: None Reported - Past Family History Sister(s) Additional Family Medical History / Comment(s): Pt has a sister with COPD, another sister with diabetes/copd/htn and another sister with diabetes. Father Family Medical History: Myocardial Infarction (MA) Additional Family Medical History / Comment(s): Father of a MA at the age of 75 yrs. Brother(s) Family Medical History: Coronary Artery Disease (CAD), CVA/TIA, Diabetes Mellitus, Myocardial Infarction (MA) Additional Family Medical History / Comment(s): One brother had a MA at 38yrs and at age 48yrs. Another brother is alive and had a stroke. Mother Family Medical History: Diabetes Mellitus, Renal Disease Additional Family Medical History / Comment(s): Mother at age 62 from renal failure General Exam Limitations: no limitations General appearance: alert, in no apparent distress Head exam: Present: atraumatic, normocephalic, normal inspection Neck exam: Present: normal inspection. Absent: tenderness, meningismus, lymphadenopathy Respiratory exam: Present: normal lung sounds bilaterally. Absent: respiratory distress, wheezes, rales, rhonchi, stridor Cardiovascular Exam: Present: regular rate, normal rhythm, normal heart sounds. Absent: systolic murmur, diastolic murmur, rubs, gallop, clicks GI/Abdominal exam: Present: soft, normal bowel sounds. Absent: distended, tenderness, guarding, rebound, rigid Neurological exam: Present: alert, oriented X3, CN II-XII intact Psychiatric exam: Present: normal affect, normal mood Skin exam: Present: warm, dry, intact, normal color. Absent: rash Course Vital Signs 07/18/22 07/18/22 07/18/22 13:05 16:13 19:01 Temperature 97.4 F L 97.4 F L Pulse Rate 54 L 60 66 Respiratory 16 18 18 Rate Blood Pressure 179/75 198/88 147/85 O2 Sat by Pulse 99 99 98 Oximetry Medical Decision Making - Medical Decision Making This is a 66-year-old male who presents to the emergency department for abdomi nal pain. Lab work was nonactionable. CT scan of the abdomen and pelvis was obtained, this revealed a gallstone in the gallbladder neck, as well as an extensive left lower lobe consolidation. This was discussed with the patient, who states that he has had increasing shortness of breath as well as a productive cough. Denies any associated chest pain. Chest x-ray was obtained, revealing a left sided pleural effusion, however evaluation of the consolidation was not optimal. He did also have an ultrasound of the gallbladder, which again redemonstrated the gallstone within the gallbladder neck. However, there were not other signs of an acute cholecystitis. Case discussed with the patient's primary care provider, Dr. Granado, who is agreeable to admitting the patient for the pneumonia. Patient was started on ceftriaxone and azithromycin per the pneumonia protocol with blood and sputum cultures obtained. Computed tomography scan of the chest was ordered per Dr. Granado's request with results pending at the time of admission. This case was discussed in detail with the attending ED physician. Presentation, findings, and treatment plan discussed in detail as well. - Lab Data Result diagrams: 07/18/22 14:58 07/18/22 14:58 Lab Results 07/18/22 07/18/22 07/18/22 Range/Units 14:58 14:58 14:58 WBC 9.6 (3.8-10.6) k/uL RBC 3.97 L (4.30-5.90) m/uL Hgb 11.5 L (13.0-17.5) gm/dL Hct 34.0 L (39.0-53.0) % MCV 85.7 (80.0-100.0) fL MCH 29.0 (25.0-35.0) pg MCHC 33.8 (31.0-37.0) g/dL RDW 14.9 (11.5-15.5) % Plt Count 179 (150-450) k/uL MPV 8.8 Neutrophils % 79 % Lymphocytes % 13 % Monocytes % 4 % Eosinophils % 2 % Basophils % 1 % Neutrophils # 7.7 (1.3-7.7) k/uL Lymphocytes # 1.2 (1.0-4.8) k/uL Monocytes # 0.4 (0-1.0) k/uL Eosinophils # 0.2 (0-0.7) k/uL Basophils # 0.1 (0-0.2) k/uL Sodium 136 L (137-145) mmol/L Potassium 5.1 (3.5-5.1) mmol/L Chloride 102 (98-107) mmol/L Carbon Dioxide 22 (22-30) mmol/L Anion Gap 12 mmol/L BUN 48 H (9-20) mg/dL Creatinine 2.01 H (0.66-1.25) mg/dL Est GFR (CKD-EPI)AfAm 39 (>60 ml/min/1.73 sqM) Est GFR (CKD-EPI)NonAf 34 (>60 ml/min/1.73 sqM) Glucose 341 H (74-99) mg/dL Calcium 8.8 (8.4-10.2) mg/dL Total Bilirubin 0.6 (0.2-1.3) mg/dL AST 29 (17-59) U/L ALT 17 (4-49) U/L Alkaline Phosphatase 97 (38-126) U/L Troponin I (0.000-0.034) ng/mL NT-Pro-B Natriuret Pep pg/mL Total Protein 6.8 (6.3-8.2) g/dL Albumin 3.7 (3.5-5.0) g/dL Amylase 62 (30-110) U/L Lipase 116 (23-300) U/L Urine Color Light Yellow Urine Appearance Clear (Clear) Urine pH 7.0 (5.0-8.0) Ur Specific Filion 1.013 (1.001-1.035) Urine Protein 1+ H (Negative) Urine Glucose (UA) 4+ H (Negative) Urine Ketones Negative (Negative) Urine Blood Trace H (Negative) Urine Nitrite Negative (Negative) Urine Bilirubin Negative (Negative) Urine Urobilinogen <2.0 (<2.0) mg/dL Ur Leukocyte Esterase Negative (Negative) Urine RBC 2 (0-5) /hpf Urine WBC <1 (0-5) /hpf 07/18/22 07/18/22 Range/Units 14:58 18:38 WBC (3.8-10.6) k/uL RBC (4.30-5.90) m/uL Hgb (13.0-17.5) gm/dL Hct (39.0-53.0) % MCV (80.0-100.0) fL MCH (25.0-35.0) pg MCHC (31.0-37.0) g/dL RDW (11.5-15.5) % Plt Count (150-450) k/uL MPV Neutrophils % % Lymphocytes % % Monocytes % % Eosinophils % % Basophils % % Neutrophils # (1.3-7.7) k/uL Lymphocytes # (1.0-4.8) k/uL Monocytes # (0-1.0) k/uL Eosinophils # (0-0.7) k/uL Basophils # (0-0.2) k/uL Sodium (137-145) mmol/L Potassium (3.5-5.1) mmol/L Chloride (98-107) mmol/L Carbon Dioxide (22-30) mmol/L Anion Gap mmol/L BUN (9-20) mg/dL Creatinine (0.66-1.25) mg/dL Est GFR (CKD-EPI)AfAm (>60 ml/min/1.73 sqM) Est GFR (CKD-EPI)NonAf (>60 ml/min/1.73 sqM) Glucose (74-99) mg/dL Calcium (8.4-10.2) mg/dL Total Bilirubin (0.2-1.3) mg/dL AST (17-59) U/L ALT (4-49) U/L Alkaline Phosphatase (38-126) U/L Troponin I <0.012 (0.000-0.034) ng/mL NT-Pro-B Natriuret Pep 592 pg/mL Total Protein (6.3-8.2) g/dL Albumin (3.5-5.0) g/dL Amylase (30-110) U/L Lipase (23-300) U/L Urine Color Urine Appearance (Clear) Urine pH (5.0-8.0) Ur Specific Filion (1.001-1.035) Urine Protein (Negative) Urine Glucose (UA) (Negative) Urine Ketones (Negative) Urine Blood (Negative) Urine Nitrite (Negative) Urine Bilirubin (Negative) Urine Urobilinogen (<2.0) mg/dL Ur Leukocyte Esterase (Negative) Urine RBC (0-5) /hpf Urine WBC (0-5) /hpf - Radiology Data Radiology results: report reviewed, image reviewed Disposition Clinical Impression: Pneumonia Disposition: ADMITTED IP TO THIS HOSP Referrals: Johny Granado MD [Primary Care Provider] - 1-2 days
[2022-07-18 15:22] LABS: Albumin 3.7 g/dL (3.5-5.0); Calcium 8.8 mg/dL (8.4-10.2); Potassium 5.1 mmol/L (3.5-5.1); Total Bilirubin 0.6 mg/dL (0.2-1.3); Total Protein 6.8 g/dL (6.3-8.2)
--- NOTE | 2022-07-18 16:13 | CT ---
EXAMINATION TYPE: CT abdomen pelvis wo con DATE OF EXAM: 07/18/2022 COMPARISON: None HISTORY: 66-year-old male RT side abdominal pain CT DLP: 1008.2 mGycm. Automated exposure control for dose reduction was used. TECHNIQUE: Contiguous axial scanning of the abdomen and pelvis without IV contrast. Coronal and sagit jerry reconstructions performed. FINDINGS: Heart normal size without pericardial effusion. Retained epicardial pacer leads. Median sternotomy wi res. Right atrial, right ventricular, and coronary sinus leads. Small hiatal hernia. Extensive consolidation posterior left lower lobe with trace effusion. Noncontrast appearance of the liver, adrenal glands, spleen, and pancreas show no gross abnormality. 3.3 cm diverticulum of the second portion of the duodenum projecting anteriorly. Prominent bilateral perinephric stranding could represent senescent change. Correlate to exclude acut e kidney injury. Gallbladder is borderline distended up to 9.3 x 3.9 cm. There is a 7 mm stone near the neck of the ga llbladder. No surrounding inflammation or apparent wall thickening by noncontrast CT. No dilated small bowel, free fluid, or free air. No mesenteric or retroperitoneal lymphadenopathy. Mild to moderate atherosclerotic calcifications infrarenal abdominal aorta and common iliac arteries. Normal appendix. Mild generalized colonic wall thickening probably relates to nondistention. Scattere d mild stool burden. There is sigmoid diverticulosis without pericolic inflammatory change. Mild to moderate circumferential bladder wall thickening could represent chronic bladder wall hypertr ophy or cystitis. Prostate gland is borderline enlarged at 4.0 cm. No abnormal fluid collection in th e pelvis or pelvic lymphadenopathy. Mild presacral soft tissue edema. Numerous pelvic phleboliths. Bones: Moderate to advanced multilevel spondylotic change. Possible severe spinal canal stenosis at L 3-L4 and at least moderate at L4-L5. IMPRESSION: 1. Extensive consolidation posterior left lower lobe with trace pleural effusion. Correlate for pneu monia. Appropriate follow-up advised. 2. Prominent perinephric edema could represent senescent change or underlying acute/chronic kidney d isease. Clinically correlate. 3. A 7 mm gallstone at the neck of the gallbladder. Gallbladder is borderline distended but shows no surrounding inflammation. If right upper quadrant pain or concern for early acute cholecystitis, fol low-up ultrasound or HIDA scan. 4. Sigmoid diverticulosis without acute diverticulitis. 5. Some circumferential bladder wall thickening could represent chronic bladder wall hypertrophy or cystitis. Clinically correlate. 6. Possible severe spinal canal stenosis at L3-L4.
[2022-07-18] MEDS ORDERED: KETOROLAC 15 MG/ML 1 ML VIAL IVP STA (16:15)
[2022-07-18] MEDS ORDERED: HYDROmorphone 0.5 MG/0.5 ML SYRINGE IVP STA (16:17)
[2022-07-18] MEDS ORDERED: METOCLOPRAMIDE 5 MG/ML 2 ML VIAL IVP STA (16:17)
--- NOTE | 2022-07-18 16:40 | XR ---
EXAMINATION TYPE: XR chest 2V DATE OF EXAM: 07/18/2022 4:32 PM COMPARISON: Chest radiographs from 07/25/2021, CT 07/18/2022. TECHNIQUE: XR chest 2V Frontal and lateral views of the chest. CLINICAL INDICATION:Male, 66 years old with history of Possible pneumonia on CT; FINDINGS: Lungs/Pleura: There is no evidence of focal consolidation, or pneumothorax. There is a trace left pl eural effusion. Pulmonary vascularity: Unremarkable. Heart/mediastinum: Cardiomediastinal silhouette is unremarkable. Three lead cardiac conduction device overlying the left hemithorax with lead tips projecting over the right ventricle, right atrium and c oronary sinus. Musculoskeletal: No acute osseous pathology. IMPRESSION: Cardiomegaly without definitive pneumonia. Trace left pleural effusion.
--- NOTE | 2022-07-18 17:57 | US ---
EXAMINATION TYPE: US gallbladder DATE OF EXAM: 07/18/2022 COMPARISON: NONE CLINICAL HISTORY: RUQ pain, abnormal CT. RUQ pain, nausea and vomiting TECHNIQUE: Multiple sonographic images of the right upper quadrant are obtained. FINDINGS: EXAM MEASUREMENTS: Liver Length: 16.3 cm Gallbladder Wall: 0.4 cm Right Kidney: 11.3 x 6.0 x 5.1 cm ADOBE FLEX DEVELOPER NOTES:*technical limitations due to patient's body habitus and large amount of overlying bowel content Pancreas: Obscured by bowel gas Liver: limited evaluation, best visualized intercostally Gallbladder: stone = 0.8cm, gallbladder wall at the upper limits of normal. Evidence for sonographic Pavon's sign: no CBD: Obscured by overlying bowel gas Right Kidney: no evidence of hydronephrosis IMPRESSION: Limited evaluation with gallstone in the gallbladder neck no other signs for acute cholecystitis.
[2022-07-18] MEDS ORDERED: PNEUMONIA PROTOCOL UTILIZED 1 EACH MISC PO PRN (18:40)
[2022-07-18] MEDS ORDERED: NALOXONE 0.4 MG/ML 1 ML VIAL IV PRN (19:06)
[2022-07-18] MEDS ORDERED: ACETAMINOPHEN TAB 325 MG TAB PO PRN (19:06)
[2022-07-18] MEDS ORDERED: HYDROmorphone 1 MG/ML 1 ML SYRINGE IVP PRN (19:06)
[2022-07-18 20:27] LABS: Glucose,Whole Blood 305 mg/dL (70-110)
[2022-07-18] MEDS: FUROSEMIDE 40 MG TAB PO SCH (21:18)
[2022-07-18] MEDS: METOPROLOL TARTRATE 25 MG TAB PO SCH (21:18)
[2022-07-18] MEDS: FINERENONE 10 MG PO SCH (21:21)
--- NOTE | 2022-07-18 21:38 | CT ---
EXAMINATION TYPE: CT chest wo con CT DLP: 486.5 mGycm, Automated exposure control for dose reduction was used. DATE OF EXAM: 07/18/2022 8:57 PM COMPARISON: 07/18/2022. CLINICAL INDICATION:Male, 66 years old with history of Abnormal imaging on CT abd pelvis, Abnormal im aging on CT abd pelvis TECHNIQUE: Multiple axial images were obtained through the chest. Sagittal and coronal reformats were created for review. Contrast used: none. Oral contrast used: none. FINDINGS: LUNGS/ PLEURA: Trace left pleural effusion with associated consolidation immediately adjacent.. Left upper lobe nodule measuring 4 mm. No pneumothorax. AIRWAY: Patent and unremarkable. HEART: Size within normal limits. Left cardiac conduction device with leads in the right ventricle an d right atrium. MEDIASTINUM: No gross evidence of adenopathy. VASCULATURE: No aortic aneurysm. MUSCULOSKELETAL: No acute osseous abnormalities, sternotomy wires are present. Multilevel disc degene ration changes. Schmorl's nodes are seen throughout the spine. SOFT TISSUES/LYMPH NODES: Unremarkable. LOWER NECK: No significant findings. UPPER ABDOMEN: Gallstone in the gallbladder neck. Perinephric edema around the kidneys. IMPRESSION: 1. Consolidation in the posterior left lower lobe with trace pleural effusion. Findings could correla te with pneumonia or atelectasis from the adjacent pleural effusion. 2. Prominent perinephric edema could represent senescent change or underlying acute/chronic kidney di sease. Clinically correlate. 3. Cholelithiasis.
[2022-07-19] MEDS: LEVOTHYROXINE 125 MCG TAB PO SCH (06:41)
[2022-07-19] MEDS ORDERED: NON FORMULARY DRUG (Levothyroxine Sodium [Synthroid] 200 MCG Tablet) PO SCH (09:00)
[2022-07-19] MEDS ORDERED: AZITHROMYCIN 500 MG TAB PO SCH (09:00)
--- NOTE | 2022-07-19 10:03 | HP ---
HISTORY AND PHYSICAL HISTORY OF PRESENT ILLNESS: A 66-year-old white male came in with abdominal pain. The pain on right side of his abdomen is fullness, pressure with nausea and vomiting. He possibly has a stone in his gallbladder neck. His stool is dark. Denied any nighat blood. CAT scan was reviewed, showed cholelithiasis, possible right lower lobe pneumonia. HOME MEDICINES: 1. Lipitor. 2. Metoprolol. 3. Wright. 4. Synthroid. 5. Lipitor. 6. Humalog Kwikpen. 7. Synthroid. 8. Cozaar. 9. . 10.Lasix. 11.Methimazole. ALLERGIES: Negative. REVIEW OF SYSTEMS: A-14 point review of systems otherwise negative. PAST MEDICAL HISTORY: Heart failure, diabetes mellitus, eye disorder, GERD, hearing disorder, dyslipidemia, hypertension, myocardial infarction, osteoarthritis, renal disease, skin disorder, hypothyroidism, insulin-dependent diabetes mellitus, neuropathy, cardiomyopathy, AICD, chronic kidney disease stage 3, AICD, coronary bypass, heart catheterization with status post pacemakers. FAMILY HISTORY: Sister with COPD. Father had myocardial infarction. Brother, coronary artery disease. He has had bilateral AKAs. PHYSICAL EXAMINATION: HEENT: Normocephalic, atraumatic. ABDOMEN: He has tenderness to palpation right upper quadrant. CARDIOVASCULAR: S1, S2. NEUROLOGIC: Cranial nerves intact. PSYCH: Fair mood and affect. SKIN: Has a mild swelling on the distal stump of the left leg. ASSESSMENT AND PLAN: 1. Acute abdominal pain, possible gallstone in gallbladder. 2. Status post left lower lobe consolidation, treat with broad-spectrum antibiotics. Get surgical consult for gallbladder. Continue current treatments. 3. Prerenal azotemia, acute tubular necrosis. 4. Acute on chronic anemia. Prognosis is guarded. MMODL / IJN: [id number] /
[2022-07-19 11:55] LABS: Glucose,Whole Blood 329 mg/dL (70-110)
[2022-07-19] MEDS ORDERED: DEXTROSE 50% SYRINGE 50 ML IVP PRN ×2 (12:12)
[2022-07-19] MEDS: FUROSEMIDE 40 MG TAB PO SCH ×2 (12:17→16:48)
[2022-07-19] MEDS: METOPROLOL TARTRATE 25 MG TAB PO SCH ×3 (12:18→21:10)
[2022-07-19] MEDS: FENOFIBRATE 160 MG TAB PO SCH (12:27)
--- NOTE | 2022-07-19 12:35 | NM ---
EXAMINATION TYPE: NM hepatobiliary w CCK DATE OF EXAM: 07/19/2022 COMPARISON: CT 07/18/2022 HISTORY: Right upper quadrant pain TECHNIQUE: After the intravenous administration of 4.5 mCi Tc 99m Mebrofenin hepatobiliary scintigrap hy is performed. Immediate images post injection. FINDINGS: Patient received 0.91 mcg CCK IV prior to the exam. There is satisfactory initial accumulation of tracer by the liver. The gallbladder is not visualized despite delayed imaging to 4 hours. The small bowel activity is noted within 6 minutes. IMPRESSION: Correlate for cystic duct obstruction, cholecystitis.
[2022-07-19] MEDS: FOLIC ACID 1 MG TAB PO SCH (12:45)
[2022-07-19] MEDS: AZITHROMYCIN 500 MG TAB PO SCH (12:45)
[2022-07-19] MEDS: PANTOPRAZOLE 40 MG TABLET PO SCH (12:46)
[2022-07-19] MEDS: ATORVASTATIN 40 MG TAB PO SCH (12:46)
[2022-07-19] MEDS: LOSARTAN 50 MG TAB PO SCH (12:50)
[2022-07-19] MEDS: INSULIN ASPART (NovoLOG) 100 UNIT/ML VIAL SQ SCH ×3 (12:51→21:10)
--- NOTE | 2022-07-19 14:32 | P.GSCN ---
History of Present Illness Consult date: 07/19/22 History of present illness: CHIEF COMPLAINT: Abdominal pain HISTORY OF PRESENT ILLNESS: This is a 66-year-old male who presented to the emergency room with complaints of right upper quadrant abdominal pain that started yesterday morning. He has been having nausea and vomiting. Also reports having diarrhea. Patient had CAT scan and abdominal ultrasound completed showing gallstones in the neck of the gallbladder. Patient denies any fever chills or sweats. White count is normal. Patient does have cardiac history with ischemic cardiac myopathy with AICD and prior CABG. Patient seen and examined by Dr. Grimes PAST MEDICAL HISTORY: Peripheral arterial disease, Heart Failure, Diabetes Mellitus, Diabetes Mellitus, Eye Disorder, GERD/Reflux, Hearing Disorder / Deafness, Hyperlipidemia, Hypertension, Myocardial Infarction (HI), Osteoarthritis (OA), Renal Disease, Skin Disorder, Thyroid Disorder, diabetes mellitus, ischemic cardiomyopathy status post AICD, A. fib PAST SURGICAL HISTORY: AICD, Coronary Bypass/CABG, Heart Catheterization, Heart Catheterization With Stent, left BKA MEDICATIONS: See list. ALLERGIES: See list. SOCIAL HISTORY: No illicit drug use. REVIEW OF SYSTEMS: CONSTITUTIONAL: Denies fever or chills. HEENT: Denies blurred vision, vision changes, or eye pain. Denies hemoptysis CARDIOVASCULAR: Denies chest pain or pressure. RESPIRATORY: No shortness of breath. GASTROINTESTINAL: See HPI for pertinent findings HEMATOLOGIC: Denies bleeding disorders. GENITOURINARY: Denies any blood in urine or increased urinary frequency. SKIN: Denies pruitis. Denies rash. PHYSICAL EXAM: VITAL SIGNS: Reviewed GENERAL: Well-developed in no acute distress. HEENT: No sclera icterus. Extraocular movements grossly intact. Moist buccal mucosa. Head is atraumatic, normocephalic. No nasal drainage. ABDOMEN: Soft. Nondistended. Right upper quadrant tenderness with palpation NEUROLOGIC: Alert and oriented. Cranial nerves II through XII grossly intact. LABORATORY DATA: WBC 9.6 Hgb 11.5 platelets 179 Sodium 136 potassium 5.1 creatinine 2.01 Glucose 329 Calcium 8.8 Total bilirubin 0.6 LFTs normal Troponin negative Lipase 116 Urinalysis negative for infection IMAGING: Computed tomography scan abdomen and pelvis extensive consolidation posterior left lower lobe with trace pleural effusion correlate for pneumonia. Prominent perinephric edema could represent change in or underlying acute on chronic kidney disease. 7 mm gallstone at the neck of gallbladder. Gallbladder is borderline distended but shows no surrounding inflammation. If right upper quadrant pain or concern for early acute cholecystitis ultrasound or HIDA scan follow-up recommended. Sigmoid diverticulosis without acute diverticulitis. Some circumferential bladder wall thickening could represent chronic bladder wall hypertrophy or cystitis. Possible severe spinal canal stenosis at L3 to L4. Gallbladder ultrasound limited evaluation with gallstone and gallbladder neck no other signs for acute cholecystitis HIDA scan correlate for cystic duct obstruction, cholecystitis Computed tomography scan of chest consolidation in the posterior left lower lobe with trace pleural effusion. Findings could correlate with pneumonia or atelectasis. ASSESSMENT: 1. Chronic cholecystitis. No evidence of gallbladder wall thickening on ultrasound. LFTs are normal 2. Cholelithiasis 3. Right upper quadrant abdominal pain 4. Right lower lobe pneumonia PLAN: -Plan for laparoscopic cholecystectomy on 07/23/[address] grimes -Recommend low-fat diet -Continue treatment for patient's pneumonia per pulmonary service -Repeat labs in a.m. Physician Security Screener note has been reviewed by physician. Signing provider agrees with the documented findings, assessment, and plan of care. Past Medical History Past Medical History: Heart Failure, Diabetes Mellitus, Diabetes Mellitus, Eye Disorder, GERD/Reflux, Hearing Disorder / Deafness, Hyperlipidemia, Hypertension, Myocardial Infarction (HI), Osteoarthritis (OA), Renal Disease, Skin Disorder, Thyroid Disorder Additional Past Medical History / Comment(s): IDDM type II, neuropathy bilateral hands/forearms/lower legs/feet, [facility] pt, bilateral leg edema, [place]. wounds right foot w/wound vac, ischemic cardiomyopathy/AICD, vtach, past medical record documents paroxysmal Afib/pt does not recall this, bilateral lower leg intermit tent claudication/PAD, chronic renal disease stage III, anemia-transfusion in December per pt., bilateral tinnitis/[place]', hypothyroidchronic renal disease stage III, anemia, bilateral tinnitis/[place]', hypothyroid, arthritis bilateral hands with R hand worse, Last Myocardial Infarction Date:: 2006 History of Any Multi-Drug Resistant Organisms: None Reported Past Surgical History: AICD, Coronary Bypass/CABG, Heart Catheterization, Heart Catheterization With Stent, Pacemaker Additional Past Surgical History / Comment(s): PCI with one stent 2006 CABG 3 vessel and AICD, DFTs, aortagram with runoff, colonoscopy, bilateral cataract removals/lens implants, multiple debridements of wounds, left bka Past Anesthesia/Blood Transfusion Reactions: No Reported Reaction Date of Last Stent Placement:: 1998 Type of Cardiac Device: Permanent Pacemaker, AICD Device Placement Date:: 2006 Past Psychological History: No Psychological Hx Reported Smoking Status: Former smoker Past Alcohol Use History: None Reported Past Drug Use History: None Reported - Past Family History Sister(s) Additional Family Medical History / Comment(s): Pt has a sister with COPD, another sister with diabetes/copd/htn and another sister with diabetes. Father Family Medical History: Myocardial Infarction (HI) Additional Family Medical History / Comment(s): Father of a HI at the age of 75 yrs. Brother(s) Family Medical History: Coronary Artery Disease (CAD), CVA/TIA, Diabetes [place], Myocardial Infarction ([place]) Additional Family Medical History / Comment(s): One brother had a HI at 38yrs and at age 48yrs. Another brother is alive and had a stroke. Mother Family Medical History: Diabetes Mellitus, Renal Disease Additional Family Medical History / Comment(s): Mother at age 62 from renal failure Medications and Allergies Home Medications Medication Instructions Recorded Confirmed Type Fenofibrate 160 mg PO DAILY 03/31/14 07/18/22 History Insulin Lispro [humaLOG Kwikpen] See Protocol SQ AC-TID 03/31/14 07/18/22 History Atorvastatin [Lipitor] 40 mg PO DAILY 05/24/20 07/18/22 History Metoprolol Tartrate 25 mg PO TID 05/24/20 07/18/22 History Aspirin 81 mg PO DAILY 90 Days #90 chew 12/16/20 07/18/22 Rx Folic Acid 1 mg PO DAILY 90 Days #90 tab 12/27/20 07/18/22 Rx Ergocalciferol (Vitamin D2) 1,250 mcg PO MO 06/02/21 07/18/22 History [Drisdol (50,000 Iu)] Insulin Glargine,Hum.rec.anlog 30 units SQ HS 06/02/21 07/18/22 History [Sofia Fajardo] Levothyroxine Sodium [Synthroid] 50 mcg PO DAILY 06/02/21 07/18/22 History Levothyroxine Sodium [Synthroid] 200 mcg PO DAILY 06/02/21 07/25/21 History Losartan [Cozaar] 50 mg PO DAILY 06/02/21 07/18/22 History Insulin Lispro [humaLOG Kwikpen] 5 unit SQ AC-TID 07/25/21 07/18/22 History Finerenone [Kerendia] 10 mg PO HS 07/18/22 07/18/22 History Furosemide [Lasix] 40 mg PO BID 07/18/22 07/18/22 History Omeprazole 40 mg PO DAILY 07/18/22 07/18/22 History Allergies Allergy/AdvReac Type Severity Reaction Status Date / Time No Known Allergies Allergy Verified 07/18/22 14:56 Surgical - Exam Vital Signs Temp Pulse Resp BP Pulse Ox 97.4 F L 54 L 16 179/75 99 07/18/22 13:05 07/18/22 13:05 07/18/22 13:05 07/18/22 13:05 07/18/22 13:05 Results - Labs 07/18/22 14:58 07/18/22 14:58 Abnormal Lab Results - Last 24 Hours (Table) 07/18/22 07/18/22 07/18/22 Range/Units 14:58 14:58 14:58 RBC 3.97 L (4.30-5.90) m/uL Hgb 11.5 L (13.0-17.5) gm/dL Hct 34.0 L (39.0-53.0) % Sodium 136 L (137-145) mmol/L BUN 48 H (9-20) mg/dL Creatinine 2.01 H (0.66-1.25) mg/dL Glucose 341 H (74-99) mg/dL POC Glucose (mg/dL) (70-110) mg/dL Urine Protein 1+ H (Negative) Urine Glucose (UA) 4+ H (Negative) Urine Blood Trace H (Negative) 07/18/22 07/19/22 Range/Units 20:25 11:51 RBC (4.30-5.90) m/uL Hgb (13.0-17.5) gm/dL Hct (39.0-53.0) % Sodium (137-145) mmol/L BUN (9-20) mg/dL Creatinine (0.66-1.25) mg/dL Glucose (74-99) mg/dL POC Glucose (mg/dL) 305 H 329 H (70-110) mg/dL Urine Protein (Negative) Urine Glucose (UA) (Negative) Urine Blood (Negative) Diabetes panel 07/18/22 Range/Units 14:58 Sodium 136 L (137-145) mmol/L Potassium 5.1 (3.5-5.1) mmol/L Chloride 102 (98-107) mmol/L Carbon Dioxide 22 (22-30) mmol/L BUN 48 H (9-20) mg/dL Creatinine 2.01 H (0.66-1.25) mg/dL Glucose 341 H (74-99) mg/dL Calcium 8.8 (8.4-10.2) mg/dL AST 29 (17-59) U/L ALT 17 (4-49) U/L Alkaline Phosphatase 97 (38-126) U/L Total Protein 6.8 (6.3-8.2) g/dL Albumin 3.7 (3.5-5.0) g/dL Calcium panel 07/18/22 Range/Units 14:58 Calcium 8.8 (8.4-10.2) mg/dL Albumin 3.7 (3.5-5.0) g/dL Pituitary panel 07/18/22 Range/Units 14:58 Sodium 136 L (137-145) mmol/L Potassium 5.1 (3.5-5.1) mmol/L Chloride 102 (98-107) mmol/L Carbon Dioxide 22 (22-30) mmol/L BUN 48 H (9-20) mg/dL Creatinine 2.01 H (0.66-1.25) mg/dL Glucose 341 H (74-99) mg/dL Calcium 8.8 (8.4-10.2) mg/dL Adrenal panel 07/18/22 Range/Units 14:58 Sodium 136 L (137-145) mmol/L Potassium 5.1 (3.5-5.1) mmol/L Chloride 102 (98-107) mmol/L Carbon Dioxide 22 (22-30) mmol/L BUN 48 H (9-20) mg/dL Creatinine 2.01 H (0.66-1.25) mg/dL Glucose 341 H (74-99) mg/dL Calcium 8.8 (8.4-10.2) mg/dL Total Bilirubin 0.6 (0.2-1.3) mg/dL AST 29 (17-59) U/L ALT 17 (4-49) U/L Alkaline Phosphatase 97 (38-126) U/L Total Protein 6.8 (6.3-8.2) g/dL Albumin 3.7 (3.5-5.0) g/dL
[2022-07-19 17:31] LABS: Glucose,Whole Blood 369 mg/dL (70-110)
[2022-07-19] MEDS: FINERENONE 10 MG PO SCH (19:54)
[2022-07-19 21:06] LABS: Glucose,Whole Blood 341 mg/dL (70-110)
[2022-07-20] MEDS: LEVOTHYROXINE 125 MCG TAB PO SCH (05:45)
[2022-07-20 07:55] LABS: Glucose,Whole Blood 297 mg/dL (70-110)
[2022-07-20] MEDS: INSULIN ASPART (NovoLOG) 100 UNIT/ML VIAL SQ SCH ×4 (08:24→20:41)
[2022-07-20 09:22] LABS: HCT 27.2 % (39.6-50.0); HGB 8.9 g/dL (13.0-17.0); MCH 28.3 pg (27.0-32.0); MCHC 32.7 g/dL (32.0-37.0); MCV 86.6 fL (80.0-97.0); Mean Platelet Volume 11.4 fL (9.5-12.2); NRBC Per 100 WBC 0 /100 WBCS (0.0-0.0); Platelet Count 179 X 10*3/uL (140-440); RBC 3.14 X 10*6/uL (4.40-5.60); RDW 15.5 % (11.5-14.5); WBC 14.74 X 10*3/uL (4.50-10.00)
[2022-07-20 09:42] LABS: African American GFR (CKD) 30.1 (60.0-200.0); Albumin 2.9 g/dL (3.8-4.9); Albumin/Globulin Ratio 1.16 (1.60-3.17); Anion Gap 12.3 mmol/L (10.00-18.00); BUN/Creat Ratio 18.36 Ratio (12.00-20.00); Blood Urea Nitrogen 45.9 mg/dL (9.0-27.0); Carbon Dioxide 22.7 mmol/L (20.0-27.5); Globulin 2.5 g/dL (1.6-3.3); Potassium 4.2 mmol/L (3.5-5.5); Total Bilirubin 0.4 mg/dL (0.30-1.20); Total Protein 5.4 g/dL (6.2-8.2)
[2022-07-20] MEDS: ATORVASTATIN 40 MG TAB PO SCH (10:14)
[2022-07-20] MEDS: PANTOPRAZOLE 40 MG TABLET PO SCH (10:14)
[2022-07-20] MEDS: LOSARTAN 50 MG TAB PO SCH (10:14)
[2022-07-20] MEDS: FENOFIBRATE 160 MG TAB PO SCH (10:14)
[2022-07-20 10:15] LABS: Basophils # (A) 0.05 X 10*3/uL (0.00-0.10); Basophils % (A) 0.3 %; Eosinophils # (A) 0.09 X 10*3/uL (0.04-0.35); Eosinophils % (A) 0.6 %; Immature Grans, Automated 0.5 %; Lymphocytes # (A) 1.27 X 10*3/uL (0.90-5.00); Lymphocytes % (A) 8.6 %; Monocytes % (A) 10.9 %; Neutrophils # (A) 11.65 X 10*3/uL (1.80-7.70); Neutrophils % (A) 79.1 %
[2022-07-20] MEDS: FUROSEMIDE 40 MG TAB PO SCH (10:15)
[2022-07-20] MEDS: METOPROLOL TARTRATE 25 MG TAB PO SCH ×3 (10:15→20:05)
[2022-07-20] MEDS: FOLIC ACID 1 MG TAB PO SCH (10:15)
[2022-07-20] MEDS: AZITHROMYCIN 500 MG TAB PO SCH (10:15)
--- NOTE | 2022-07-20 10:23 | P.CONS ---
History of Present Illness - Reason for Consult Consult date: 07/20/22 - History of Present Illness This is a 66-year-old gentleman who is known to the wound care center with a nonhealing ulceration to the left amputation site.Original cause of wound was Surgical Injury. The date acquired was: 02/05/2021. The wound has been in treatment 18 weeks. The wound is currently classified as a Grade 2 wound with etiology of Diabetic Wound/Ulcer of the Lower Extremity and is located on the Left Lower Leg. The wound measures 0.3cm length x 0.5cm width x 0.5cm depth; 0.118cm^2 area and 0.059cm^3 volume. There is no tunneling noted. There is a medium amount of serous drainage noted. The wound margin is flat and intact. There is large (67-100%) red granulation within the wound bed. There is no necrotic tissue within the wound bed. The periwound skin appearance exhibited: Scarring. The periwound skin appearance did not exhibit: Callus, Crepitus, Excoriation, Induration, Rash, Dry/Scaly, Maceration, Atrophie [place], Cyanosis, Ecchymosis, Hemosiderin Staining, Mottled, Pallor, Rubor, Erythema. Review Of Systems: Constitutional: No fever, no chills, no night sweats. No weight change. No weakness, fatigue or lethargy. No daytime sleepiness. Integumentary:reports wounds, no lesions. No rash or pruritus. No unusual bruising. No change in hair or nails. Physical exam: General Appearance: Alert, cooperative, no distress, appears stated age. Skin: See HPI all other Skin color, texture, tugor normal, no rashes or lesions. Neurologic: Alert oriented x3 Assessment: 1. 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 Diabetes with skin ulceration Plan: 1. Apply absorptive silver moistened and border foam to the site. Change Saturday. Patient will return to the wound care center July 26 at 2:00. Thank you for the consultation any questions please contact the wound care center DNP note has been reviewed and discussed with Dr. Lira and the impression and plan of care has been directed as dictated. 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, ischemic cardiomyopathy/AICD, vtach, past medical record documents paroxysmal Afib/pt does not recall this, bilateral lower leg intermittent claudication/PAD, chronic renal disease stage III, anemia-t ransfusion in December per pt., bilateral tinnitis/[place], hypothyroid, chronic renal disease stage III, anemia, bilateral tinnitis/[place], hypothyroid, arthritis bilateral hands with R hand worse, Last Myocardial Infarction Date:: 2006 History of Any Multi-Drug Resistant Organisms: None Reported Past Surgical History: AICD, Coronary Bypass/CABG, Heart Catheterization, Heart Catheterization With Stent, Pacemaker Additional Past Surgical History / Comment(s): PCI with one stent 1998, 2006 CABG 3 vessel and AICD, DFTs, aortagram with runoff, colonoscopy, bilateral cataract removals/lens implants, multiple debridements of wounds, left bka Past Anesthesia/Blood Transfusion Reactions: No Reported Reaction Date of Last Stent Placement:: 1998 Type of Cardiac Device: Permanent Pacemaker, AICD Device Placement Date:: 2006, new pacemaker October 2021 Past Psychological History: No Psychological Hx Reported Additional Psychological History / Comment(s): Pt resides with his spouse. currently non-weight bearing both feet & using wheelchair Smoking Status: Former smoker Past Alcohol Use History: None Reported Additional Past Alcohol Use History / Comment(s): STARTED SMOKING AT AGE 17 QUIT 2006 SMOKED 1 1/2 PPD Past Drug Use History: None Reported - Past Family History Sister(s) Additional Family Medical History / Comment(s): Pt has a sister with COPD, another sister with diabetes/copd/htn and another sister with diabetes. Father Family Medical History: Myocardial Infarction ([place]) Additional Family Medical History / Comment(s): Father of a [place] at the age of 75 yrs. Brother(s) Family Medical History: Coronary Artery Disease (CAD), CVA/TIA, Diabetes Mellitus, Myocardial Infarction ([place]) Additional Family Medical History / Comment(s): One brother had a [place] at 38yrs and at age 48yrs. Another brother is alive and had a stroke. Mother Family Medical History: Diabetes Mellitus, Renal Disease Additional Family Medical History / Comment(s): Mother at age 62 from renal failure Medications and Allergies Home Medications Medication Instructions Recorded Confirmed Type Fenofibrate 160 mg PO DAILY 03/31/14 07/18/22 History Insulin Lispro [humaLOG Kwikpen] See Protocol SQ AC-TID 03/31/14 07/18/22 History Atorvastatin [Lipitor] 40 mg PO DAILY 05/24/20 07/18/22 History Metoprolol Tartrate 25 mg PO TID 05/24/20 07/18/22 History Aspirin 81 mg PO DAILY 90 Days #90 chew 12/16/20 07/18/22 Rx Folic Acid 1 mg PO DAILY 90 Days #90 tab 12/27/20 07/18/22 Rx Ergocalciferol (Vitamin D2) 1,250 mcg PO MO 06/02/21 07/18/22 History [Drisdol (50,000 Iu)] Insulin Glargine,Hum.rec.anlog 30 units SQ HS 06/02/21 07/18/22 History [Toujeo Solostar] Levothyroxine Sodium [Synthroid] 50 mcg PO DAILY 06/02/21 07/18/22 History Levothyroxine Sodium [Synthroid] 200 mcg PO DAILY 06/02/21 07/25/21 History Losartan [Cozaar] 50 mg PO DAILY 06/02/21 07/18/22 History Insulin Lispro [humaLOG Kwikpen] 5 unit SQ AC-TID 07/25/21 07/18/22 History Finerenone [Kerendia] 10 mg PO HS 07/18/22 07/18/22 History Furosemide [Lasix] 40 mg PO BID 07/18/22 07/18/22 History Omeprazole 40 mg PO DAILY 07/18/22 07/18/22 History Allergies Allergy/AdvReac Type Severity Reaction Status Date / Time No Known Allergies Allergy Verified 07/18/22 14:56 Physical Exam Vitals: Vital Signs Temp Pulse Resp BP Pulse Ox 07/20/22 07:30 98.9 F 71 16 127/65 95 07/20/22 03:21 98.7 F 71 17 128/60 94 L 07/19/22 20:00 98.8 F 73 130/69 94 L 07/19/22 13:58 98.0 F 67 14 110/70 95 07/19/22 13:34 98 F 71 16 155/70 95 07/19/22 11:55 98.1 F 70 17 129/64 95 Intake and Output 07/19/22 07/20/22 07/20/22 22:59 06:59 14:59 Intake Total 118 Output Total 100 Balance 118 -100 Intake: Oral 118 Output: Urine 100 Other: Voiding Method Urinal # Voids 1 # Bowel Movements 0 Results CBC & Chem 7: 07/20/22 06:00 07/20/22 06:00 Labs: Abnormal Lab Results - Last 24 Hours (Table) 07/18/22 07/19/22 07/19/22 Range/Units 14:58 11:51 17:29 WBC (4.50-10.00) X 10*3/uL RBC (4.40-5.60) X 10*6/uL Hgb (13.0-17.0) g/dL Hct (39.6-50.0) % RDW (11.5-14.5) % Sodium (135-145) mmol/L BUN (9.0-27.0) mg/dL Creatinine (0.6-1.5) mg/dL Est GFR (CKD-EPI)AfAm (60.0-200.0) Est GFR (CKD-EPI)NonAf (60.0-200.0) Glucose (70-110) mg/dL POC Glucose (mg/dL) 329 H 369 H (70-110) mg/dL Hemoglobin A1c 10.2 H (0.0-6.0) % Calcium (8.7-10.3) mg/dL ALT (10-49) U/L Total Protein (6.2-8.2) g/dL Albumin (3.8-4.9) g/dL Albumin/Globulin Ratio (1.60-3.17) g/dL 07/19/22 07/20/22 07/20/22 Range/Units 21:05 06:00 06:00 WBC 14.74 H (4.50-10.00) X 10*3/uL RBC 3.14 L (4.40-5.60) X 10*6/uL Hgb 8.9 L (13.0-17.0) g/dL Hct 27.2 L (39.6-50.0) % RDW 15.5 H (11.5-14.5) % Sodium 133 L (135-145) mmol/L BUN 45.9 H (9.0-27.0) mg/dL Creatinine 2.5 H (0.6-1.5) mg/dL Est GFR (CKD-EPI)AfAm 30.1 L (60.0-200.0) Est GFR (CKD-EPI)NonAf 26.0 L (60.0-200.0) Glucose 273 H (70-110) mg/dL POC Glucose (mg/dL) 341 H (70-110) mg/dL Hemoglobin A1c (0.0-6.0) % Calcium 8.0 L (8.7-10.3) mg/dL ALT 8 L (10-49) U/L Total Protein 5.4 L (6.2-8.2) g/dL Albumin 2.9 L (3.8-4.9) g/dL Albumin/Globulin Ratio 1.16 L (1.60-3.17) g/dL 07/20/22 Range/Units 07:53 WBC (4.50-10.00) X 10*3/uL RBC (4.40-5.60) X 10*6/uL Hgb (13.0-17.0) g/dL Hct (39.6-50.0) % RDW (11.5-14.5) % Sodium (135-145) mmol/L BUN (9.0-27.0) mg/dL Creatinine (0.6-1.5) mg/dL Est GFR (CKD-EPI)AfAm (60.0-200.0) Est GFR (CKD-EPI)NonAf (60.0-200.0) Glucose (70-110) mg/dL POC Glucose (mg/dL) 297 H (70-110) mg/dL Hemoglobin A1c (0.0-6.0) % Calcium (8.7-10.3) mg/dL ALT (10-49) U/L Total Protein (6.2-8.2) g/dL Albumin (3.8-4.9) g/dL Albumin/Globulin Ratio (1.60-3.17) g/dL Microbiology - Last 24 Hours (Table) 07/18/22 19:49 Blood Culture - Preliminary Blood No Growth after 24 hours 07/18/22 19:56 Blood Culture - Preliminary Blood No Growth after 24 hours Assessment and Plan (1) Non-pressure chronic ulcer of other part of left lower leg with fat layer exposed Current Visit: Yes Status: Acute Code(s): L97.822 - NON-PRS CHRONIC ULCER OTH PRT L LOW LEG W FAT LAYER EXPOSED SNOMED Code(s): 72857634 (2) Type 2 diabetes mellitus with other skin ulcer Current Visit: Yes Status: Acute Code(s): E11.622 - TYPE 2 DIABETES MELLITUS WITH OTHER SKIN ULCER; L98.499 - NON-PRESSURE CHRONIC ULCER OF SKIN OF SITES W UNSP SEVERITY SNOMED Code(s): 621701474 (3) Other complications of amputation stump Current Visit: Yes Status: Acute Code(s): T87.89 - OTHER COMPLICATIONS OF AMPUTATION STUMP SNOMED Code(s): 54020959
[2022-07-20 12:46] LABS: Glucose,Whole Blood 308 mg/dL (70-110)
[2022-07-20] MEDS: PIPERACILLIN-TAZOBACTAM 3.375 GM in SODIUM CHLORIDE 0.9% 100 ML IVPB SCH ×2 (13:30→20:05)
--- NOTE | 2022-07-20 13:40 | P.CNPUL ---
History of Present Illness Consult date: 07/19/22 Reason for consult: dyspnea, pneumonia Chief complaint: Abdominal pain History of present illness: Patient is a 66-year-old female came into the hospital with a developing right upper quadrant pain along with nausea and vomiting started 1 day prior to coming to the hospital, ongoing intermittent diarrhea present as well, denies any fever or chills so throat has some problems with cough and shortness of breath as well . Her past medical history significant for diabetes dyslipidemia hypertension hypertensive cardiovascular disease hypothyroidism, chronic neuropathy and leg edema, status post AICD, coronary artery disease status post CABG 3 and placement for ischemic cardiomyopathy with AICD, status post left BKA, labs reviewed CBC within normal limit BUN/creatinine 48/2.01 blood sugar is 340. Computed tomography scan of the chest positive for left lower lobe consolidation along with trace pleural effusion consistent with pneumonia evidence of cholelithiasis seen as well. Currently patient is on IV Rocephin along with continuation of home medications Review of Systems All systems: negative Past Medical History Past Medical History: Heart Failure, Diabetes Mellitus, Diabetes Mellitus, Eye Disorder, GERD/Reflux, Hearing Disorder / Deafness, Hyperlipidemia, Hypertension, Myocardial Infarction (PR), Osteoarthritis (OA), Renal Disease, Skin Disorder, Thyroid Disorder Additional Past Medical History / Comment(s): IDDM type II, neuropathy bilateral hands/forearms/lower legs/feet, WCC pt, bilateral leg edema, [place]. wounds right foot w/wound vac, ischemic cardiomyopathy/AICD, vtach, past medical record documents paroxysmal Afib/pt does not recall this, bilateral lower leg intermittent claudication/PAD, chronic renal disease stage III, anemia- transfusion in December per pt., bilateral tinnitis/IQUGMIUT, hypothyroidchronic renal disease stage III, anemia, bilateral tinnitis/IQUGMIUT, hypothyroid, arthritis bilateral hands with R hand worse, Last Myocardial Infarction Date:: 2006 History of Any Multi-Drug Resistant Organisms: None Reported Past Surgical History: AICD, Coronary Bypass/CABG, Heart Catheterization, Heart Catheterization With Stent, Pacemaker Additional Past Surgical History / Comment(s): PCI with one stent 1998, 2006 CABG 3 vessel and AICD, DFTs, aortagram with runoff, colonoscopy, bilateral cataract removals/lens implants, multiple debridements of wounds, left bka Past Anesthesia/Blood Transfusion Reactions: No Reported Reaction Date of Last Stent Placement:: 1998 Type of Cardiac Device: Permanent Pacemaker, AICD Device Placement Date:: 2006 Past Psychological History: No Psychological Hx Reported Smoking Status: Former smoker Past Alcohol Use History: None Reported Past Drug Use History: None Reported - Past Family History Sister(s) Additional Family Medical History / Comment(s): Pt has a sister with COPD, another sister with diabetes/copd/htn and another sister with diabetes. Father Family Medical History: Myocardial Infarction (PR) Additional Family Medical History / Comment(s): Father of a PR at the age of 75 yrs. Brother(s) Family Medical History: Coronary Artery Disease (CAD), CVA/TIA, Diabetes Mellitus, Myocardial Infarction (PR) Additional Family Medical History / Comment(s): One brother had a PR at 38yrs and at age 48yrs. Another brother is alive and had a stroke. Mother Family Medical History: Diabetes Mellitus, Renal Disease Additional Family Medical History / Comment(s): Mother at age 62 from renal failure Medications and Allergies Home Medications Medication Instructions Recorded Confirmed Type Fenofibrate 160 mg PO DAILY 03/31/14 07/18/22 History Insulin Lispro [humaLOG Kwikpen] See Protocol SQ AC-TID 03/31/14 07/18/22 History Atorvastatin [Lipitor] 40 mg PO DAILY 05/24/20 07/18/22 History Metoprolol Tartrate 25 mg PO TID 05/24/20 07/18/22 History Aspirin 81 mg PO DAILY 90 Days #90 chew 12/16/20 07/18/22 Rx Folic Acid 1 mg PO DAILY 90 Days #90 tab 12/27/20 07/18/22 Rx Ergocalciferol (Vitamin D2) 1,250 mcg PO MO 06/02/21 07/18/22 History [Drisdol (50,000 Iu)] Insulin Glargine,Hum.rec.anlog 30 units SQ HS 06/02/21 07/18/22 History [Touadamo Solostar] Levothyroxine Sodium [Synthroid] 50 mcg PO DAILY 06/02/21 07/18/22 History Levothyroxine Sodium [Synthroid] 200 mcg PO DAILY 06/02/21 07/25/21 History Losartan [Cozaar] 50 mg PO DAILY 06/02/21 07/18/22 History Insulin Lispro [humaLOG Kwikpen] 5 unit SQ AC-TID 07/25/21 07/18/22 History Finerenone [Kerendia] 10 mg PO HS 07/18/22 07/18/22 History Furosemide [Lasix] 40 mg PO BID 07/18/22 07/18/22 History Omeprazole 40 mg PO DAILY 07/18/22 07/18/22 History Allergies Allergy/AdvReac Type Severity Reaction Status Date / Time No Known Allergies Allergy Verified 07/18/22 14:56 Physical Exam Vitals: Vital Signs Temp Pulse Resp BP Pulse Ox 07/19/22 06:00 70 16 140/66 96 07/19/22 03:00 62 16 151/76 96 07/19/22 02:00 72 16 157/78 96 07/19/22 01:00 72 16 146/72 95 07/19/22 00:00 66 16 131/80 96 07/18/22 23:00 62 18 159/83 96 07/18/22 21:19 71 18 132/66 95 07/18/22 19:01 97.4 F L 66 18 147/85 98 07/18/22 16:13 60 18 198/88 99 07/18/22 13:05 97.4 F L 54 L 16 179/75 99 - Constitutional General appearance: average body habitus, disheveled - EENT Eyes: EOMI, PERRLA ENT: normal oropharynx Ears: bilateral: normal - Neck Carotids: bilateral: upstroke normal Thyroid: bilateral: normal size - Respiratory Respiratory: bilateral: CTA - Cardiovascular Rhythm: regular Heart sounds: normal: S1, S2 - Gastrointestinal General gastrointestinal: decreased bowel sounds, soft - Integumentary Integumentary: normal turgor - Neurologic Neurologic: CNII-XII intact - Musculoskeletal Musculoskeletal: generalized weakness, strength equal bilaterally - Psychiatric Psychiatric: A&O x's 3, appropriate affect, intact judgment & insight Results - Laboratory Findings CBC and BMP: 07/20/22 06:00 07/20/22 06:00 Abnormal lab findings: Abnormal Labs 07/18/22 07/18/22 07/18/22 14:58 14:58 14:58 RBC 3.97 L Hgb 11.5 L Hct 34.0 L Sodium 136 L BUN 48 H Creatinine 2.01 H Glucose 341 H POC Glucose (mg/dL) Urine Protein 1+ H Urine Glucose (UA) 4+ H Urine Blood Trace H 07/18/22 20:25 RBC Hgb Hct Sodium BUN Creatinine Glucose POC Glucose (mg/dL) 305 H Urine Protein Urine Glucose (UA) Urine Blood - Diagnostic Findings Chest x-ray: report reviewed, image reviewed CT scan - chest: report reviewed, image reviewed (As noted above) Assessment and Plan Assessment: Left lower lobe community-acquired pneumonia, on Rocephin we'll continue Acute kidney disease, transient renal function and monitor electrolytes closely Coronary artery disease ischemic cardiomyopathy, continuation of home medications Diabetes mellitus uncontrolled with hyperglycemia continue sliding scale insulin and home medications Plan: As above Time with Patient: Greater than 30
--- NOTE | 2022-07-20 13:44 | P.PN ---
Subjective Progress Note Date: 07/20/22 Principal diagnosis: Left lower lobe community-acquired pneumonia, on Rocephin we'll continue Acute kidney disease, transient renal function and monitor electrolytes closely Coronary artery disease ischemic cardiomyopathy, continuation of home medications Diabetes mellitus uncontrolled with hyperglycemia continue sliding scale insulin and home medications 07/20/2022, patient seen and evaluated examined, cough congestion slightly improved still however producing greenish sputum, sputum cultures are pending however blood cultures have been negative so far. Patient is status post HIDA scan that will not visualized likely related to cystic-type obstruction or cholecystitis, general surgery have been consulted to labs from today reviewed white cell count is 14.74, hemoglobin and hematocrit 8.9/27, BUN/creatinine 45.9/2.5 blood sugar mostly higher than 300 range Patient is a 66-year-old female came into the hospital with a developing right upper quadrant pain along with nausea and vomiting started 1 day prior to coming to the hospital, ongoing intermittent diarrhea present as well, denies any fever or chills so throat has some problems with cough and shortness of breath as well. Her past medical history significant for diabetes dyslipidemia hypertension hypertensive cardiovascular disease hypothyroidism, chronic neuropathy and leg edema, status post AICD, coronary artery disease status post CABG 3 and placement for ischemic cardiomyopathy with AICD, status post left BKA, labs reviewed CBC within normal limit BUN/creatinine 48/2.01 blood sugar is 340. Computed tomography scan of the chest positive for left lower lobe consolidation along with trace pleural effusion consistent with pneumonia evidence of cholelithiasis seen as well. Currently patient is on IV Rocephin along with continuation of home medications Objective - Vital Signs Vital signs: Vital Signs Temp 98.9 F 07/20/22 07:30 Pulse 71 07/20/22 07:30 Resp 16 07/20/22 07:30 BP 127/65 07/20/22 07:30 Pulse Ox 95 07/20/22 07:30 FiO2 Intake & Output 07/19/22 07/20/22 07/20/22 18:59 06:59 18:59 Intake Total 118 Output Total 300 100 Balance -182 -100 Weight 90.718 kg Intake: Oral 118 Output: Urine 300 100 Emesis 0 Other: Voiding Method Urinal Urinal Urinal # Voids 1 # Bowel Movements 0 - Exam - Constitutional General appearance: average body habitus, disheveled - EENT Eyes: EOMI, PERRLA ENT: normal oropharynx Ears: bilateral: normal - Neck Carotids: bilateral: upstroke normal Thyroid: bilateral: normal size - Respiratory Respiratory: bilateral: CTA - Cardiovascular Rhythm: regular Heart sounds: normal: S1, S2 - Gastrointestinal General gastrointestinal: decreased bowel sounds, soft - Integumentary Integumentary: normal turgor - Neurologic Neurologic: CNII-XII intact - Musculoskeletal Musculoskeletal: generalized weakness, strength equal bilaterally - Psychiatric Psychiatric: A&O x's 3, appropriate affect, intact judgment & insight - Labs CBC & Chem 7: 07/20/22 06:00 07/20/22 06:00 Labs: Abnormal Lab Results - Last 24 Hours (Table) 07/18/22 07/19/22 07/19/22 Range/Units 14:58 17:29 21:05 WBC (4.50-10.00) X 10*3/uL RBC (4.40-5.60) X 10*6/uL Hgb (13.0-17.0) g/dL Hct (39.6-50.0) % RDW (11.5-14.5) % Immature Gran # (0.00-0.04) X 10*3/uL Neutrophils # (1.80-7.70) X 10*3/uL Monocytes # (0.20-1.00) X 10*3/uL Sodium (135-145) mmol/L BUN (9.0-27.0) mg/dL Creatinine (0.6-1.5) mg/dL Est GFR (CKD-EPI)AfAm (60.0-200.0) Est GFR (CKD-EPI)NonAf (60.0-200.0) Glucose (70-110) mg/dL POC Glucose (mg/dL) 369 H 341 H (70-110) mg/dL Hemoglobin A1c 10.2 H (0.0-6.0) % Calcium (8.7-10.3) mg/dL ALT (10-49) U/L Total Protein (6.2-8.2) g/dL Albumin (3.8-4.9) g/dL Albumin/Globulin Ratio (1.60-3.17) g/dL 07/20/22 07/20/22 07/20/22 Range/Units 06:00 06:00 07:53 WBC 14.74 H (4.50-10.00) X 10*3/uL RBC 3.14 L (4.40-5.60) X 10*6/uL Hgb 8.9 L (13.0-17.0) g/dL Hct 27.2 L (39.6-50.0) % RDW 15.5 H (11.5-14.5) % Immature Gran # 0.08 H (0.00-0.04) X 10*3/uL Neutrophils # 11.65 H (1.80-7.70) X 10*3/uL Monocytes # 1.60 H (0.20-1.00) X 10*3/uL Sodium 133 L (135-145) mmol/L BUN 45.9 H (9.0-27.0) mg/dL Creatinine 2.5 H (0.6-1.5) mg/dL Est GFR (CKD-EPI)AfAm 30.1 L (60.0-200.0) Est GFR (CKD-EPI)NonAf 26.0 L (60.0-200.0) Glucose 273 H (70-110) mg/dL POC Glucose (mg/dL) 297 H (70-110) mg/dL Hemoglobin A1c (0.0-6.0) % Calcium 8.0 L (8.7-10.3) mg/dL ALT 8 L (10-49) U/L Total Protein 5.4 L (6.2-8.2) g/dL Albumin 2.9 L (3.8-4.9) g/dL Albumin/Globulin Ratio 1.16 L (1.60-3.17) g/dL 07/20/22 Range/Units 12:45 WBC (4.50-10.00) X 10*3/uL RBC (4.40-5.60) X 10*6/uL Hgb (13.0-17.0) g/dL Hct (39.6-50.0) % RDW (11.5-14.5) % Immature Gran # (0.00-0.04) X 10*3/uL Neutrophils # (1.80-7.70) X 10*3/uL Monocytes # (0.20-1.00) X 10*3/uL Sodium (135-145) mmol/L BUN (9.0-27.0) mg/dL Creatinine (0.6-1.5) mg/dL Est GFR (CKD-EPI)AfAm (60.0-200.0) Est GFR (CKD-EPI)NonAf (60.0-200.0) Glucose (70-110) mg/dL POC Glucose (mg/dL) 308 H (70-110) mg/dL Hemoglobin A1c (0.0-6.0) % Calcium (8.7-10.3) mg/dL ALT (10-49) U/L Total Protein (6.2-8.2) g/dL Albumin (3.8-4.9) g/dL Albumin/Globulin Ratio (1.60-3.17) g/dL Microbiology - Last 24 Hours (Table) 07/18/22 07:29 Sputum Culture - Preliminary Sputum 07/18/22 19:49 Blood Culture - Preliminary Blood No Growth after 24 hours 07/18/22 19:56 Blood Culture - Preliminary Blood No Growth after 24 hours Assessment and Plan Assessment: Left lower lobe community-acquired pneumonia, on Rocephin we'll continue Acute cholecystitis, surgery on consult Acute kidney disease, transient renal function and monitor electrolytes closely Coronary artery disease ischemic cardiomyopathy, continuation of home medications Diabetes mellitus uncontrolled with hyperglycemia continue sliding scale insulin and home medications Plan: As above Time with Patient: Greater than 30
--- NOTE | 2022-07-20 15:13 | P.PN ---
Subjective Progress Note Date: 07/20/22 CHIEF COMPLAINT: Abdominal pain HISTORY OF PRESENT ILLNESS: Patient continues to complain of right upper quadrant abdominal pain. Pain is intermittent. Pain is worse after eating. He denies any nausea or vomiting. He rates his pain about a 4 out of 10. Patient had CAT scan and abdominal ultrasound completed showing gallstones in the neck of the gallbladder. He is also under treatment for her pneumonia. Afebrile. WBC is up at 14.74 Hgb is 8.9 platelets are 179 sodium was 133 potassium is 4.2 creatinine 2.5 glucose 273 Patient seen and examined with Dr. grimes PHYSICAL EXAM: VITAL SIGNS: Reviewed. GENERAL: Well-developed in no acute distress. HEENT: No sclera icterus. Extraocular movements grossly intact. Moist buccal mucosa. Head is atraumatic, normocephalic. ABDOMEN: Soft. Nondistended. Nontender. NEUROLOGIC: Alert and oriented. Cranial nerves II through XII grossly intact. ASSESSMENT: 1. Chronic cholecystitis. No evidence of gallbladder wall thickening on ultrasound. LFTs are normal 2. Cholelithiasis 3. Right upper quadrant abdominal pain 4. Pneumonia 5. Acute kidney injury 6. Cardiac history including ischemic cardiomyopathy with AICD and prior CABG 7. History of peripheral arterial disease PLAN: -Plan for laparoscopic cholecystectomy on 07/23/[address] grimes -Recommend low-fat diet -Continue treatment for patient's pneumonia per pulmonary service -Acute kidney injury management per medicine service -Zosyn added for antibiotic coverage of gallbladder and pneumonia. Rocephin discontinued. Physician [employer] Technician note has been reviewed by physician. Signing provider agrees with the documented findings, assessment, and plan of care. Objective - Vital Signs Vital signs: Vital Signs Temp 98.0 F 07/20/22 13:49 Pulse 70 07/20/22 13:49 Resp 22 07/20/22 13:49 BP 109/63 07/20/22 13:49 Pulse Ox 94 L 07/20/22 13:49 FiO2 Intake & Output 07/19/22 07/20/22 07/20/22 18:59 06:59 18:59 Intake Total 118 Output Total 300 475 Balance -182 -475 Weight 90.718 kg Intake: Oral 118 Output: Urine 300 475 Emesis 0 Other: Voiding Method Urinal Urinal Urinal # Voids 1 # Bowel Movements 0 - Labs CBC & Chem 7: 07/20/22 06:00 07/20/22 06:00 Labs: Abnormal Lab Results - Last 24 Hours (Table) 07/18/22 07/19/22 07/19/22 Range/Units 14:58 17:29 21:05 WBC (4.50-10.00) X 10*3/uL RBC (4.40-5.60) X 10*6/uL Hgb (13.0-17.0) g/dL Hct (39.6-50.0) % RDW (11.5-14.5) % Immature Gran # (0.00-0.04) X 10*3/uL Neutrophils # (1.80-7.70) X 10*3/uL Monocytes # (0.20-1.00) X 10*3/uL Sodium (135-145) mmol/L BUN (9.0-27.0) mg/dL Creatinine (0.6-1.5) mg/dL Est GFR (CKD-EPI)AfAm (60.0-200.0) Est GFR (CKD-EPI)NonAf (60.0-200.0) Glucose (70-110) mg/dL POC Glucose (mg/dL) 369 H 341 H (70-110) mg/dL Hemoglobin A1c 10.2 H (0.0-6.0) % Calcium (8.7-10.3) mg/dL ALT (10-49) U/L Total Protein (6.2-8.2) g/dL Albumin (3.8-4.9) g/dL Albumin/Globulin Ratio (1.60-3.17) g/dL 07/20/22 07/20/22 07/20/22 Range/Units 06:00 06:00 07:53 WBC 14.74 H (4.50-10.00) X 10*3/uL RBC 3.14 L (4.40-5.60) X 10*6/uL Hgb 8.9 L (13.0-17.0) g/dL Hct 27.2 L (39.6-50.0) % RDW 15.5 H (11.5-14.5) % Immature Gran # 0.08 H (0.00-0.04) X 10*3/uL Neutrophils # 11.65 H (1.80-7.70) X 10*3/uL Monocytes # 1.60 H (0.20-1.00) X 10*3/uL Sodium 133 L (135-145) mmol/L BUN 45.9 H (9.0-27.0) mg/dL Creatinine 2.5 H (0.6-1.5) mg/dL Est GFR (CKD-EPI)AfAm 30.1 L (60.0-200.0) Est GFR (CKD-EPI)NonAf 26.0 L (60.0-200.0) Glucose 273 H (70-110) mg/dL POC Glucose (mg/dL) 297 H (70-110) mg/dL Hemoglobin A1c (0.0-6.0) % Calcium 8.0 L (8.7-10.3) mg/dL ALT 8 L (10-49) U/L Total Protein 5.4 L (6.2-8.2) g/dL Albumin 2.9 L (3.8-4.9) g/dL Albumin/Globulin Ratio 1.16 L (1.60-3.17) g/dL 07/20/22 Range/Units 12:45 WBC (4.50-10.00) X 10*3/uL RBC (4.40-5.60) X 10*6/uL Hgb (13.0-17.0) g/dL Hct (39.6-50.0) % RDW (11.5-14.5) % Immature Gran # (0.00-0.04) X 10*3/uL Neutrophils # (1.80-7.70) X 10*3/uL Monocytes # (0.20-1.00) X 10*3/uL Sodium (135-145) mmol/L BUN (9.0-27.0) mg/dL Creatinine (0.6-1.5) mg/dL Est GFR (CKD-EPI)AfAm (60.0-200.0) Est GFR (CKD-EPI)NonAf (60.0-200.0) Glucose (70-110) mg/dL POC Glucose (mg/dL) 308 H (70-110) mg/dL Hemoglobin A1c (0.0-6.0) % Calcium (8.7-10.3) mg/dL ALT (10-49) U/L Total Protein (6.2-8.2) g/dL Albumin (3.8-4.9) g/dL Albumin/Globulin Ratio (1.60-3.17) g/dL Microbiology - Last 24 Hours (Table) 07/18/22 07:29 Sputum Culture - Preliminary Sputum 07/18/22 19:49 Blood Culture - Preliminary Blood No Growth after 24 hours 07/18/22 19:56 Blood Culture - Preliminary Blood No Growth after 24 hours
[2022-07-20] MEDS: SODIUM CHLORIDE 0.9% 1,000 ML IV SCH (16:41)
[2022-07-20 16:48] VITALS: BMI 32.3
[2022-07-20 17:15] LABS: Glucose,Whole Blood 392 mg/dL (70-110)
[2022-07-20] MEDS: HYDROmorphone 0.5 MG/0.5 ML SYRINGE IVP PRN (20:05)
[2022-07-20] MEDS: FINERENONE 10 MG PO SCH (20:09)
[2022-07-20 20:18] LABS: Glucose,Whole Blood 373 mg/dL (70-110)
--- NOTE | 2022-07-20 22:23 | PN ---
PROGRESS NOTE SUBJECTIVE: A 66-year-old white male. We are going to get a wound care to the distal wound. We are going to treat for pneumonia, the left lower lobe pneumonia with broad-spectrum antibiotics for the weekend. Right upper quadrant pain is going to be treated with cholecystectomy next week on Saturday after pneumonia stabilized. OBJECTIVE: CARDIOVASCULAR: S1, S2. LUNGS: Scattered rhonchi and wheeze. HEMATOLOGY: Negative Homans. ASSESSMENT: Acute cholecystitis, left lower lobe pneumonia, chronic obstructive pulmonary disease, diastolic congestive heart failure, bilateral below-knee amputation with stump infection on the left leg, diabetes mellitus. Continue broad-spectrum antibiotics. Cholecystectomy on Saturday. Pain control. Wound care. Prognosis guarded. MMODL / IJN: [id number] /
--- NOTE | 2022-07-21 01:20 | PN ---
PROGRESS NOTE SUBJECTIVE: A 66-year-old white male, remain on antibiotics over the weekend for left lower lobe pneumonia. Sat 94% on room air. Blood pressure 121/58, temp 99.1, pulse 71, respiratory rate 16 to 18. He is supposed to get a phone consult for the left distal stump sore. He has also been scheduled for acute cholecystectomy on Saturday for right upper quadrant pain. Abnormal HIDA scan. OBJECTIVE: VITAL SIGNS: Appear to be as above. CARDIOVASCULAR: S1, S2. LUNGS: Decreased breath sounds on the left. HEMATOLOGY: Negative for Homans. PSYCH: Fair mood and affect. ASSESSMENT: Left lower lobe pneumonia. Continue broad-spectrum antibiotics over the weekend. Acute cholecystitis, surgery on Saturday. History of below-knee amputation, peripheral arterial disease with a wound on the left distal stump. Continue home medicines and wound care. Prognosis guarded. MMODL / IJN: [id number] /
[2022-07-21] MEDS: LEVOTHYROXINE 125 MCG TAB PO SCH (05:16)
[2022-07-21] MEDS: PIPERACILLIN-TAZOBACTAM 3.375 GM in SODIUM CHLORIDE 0.9% 100 ML IVPB SCH ×3 (05:16→21:33)
[2022-07-21] MEDS: HYDROmorphone 0.5 MG/0.5 ML SYRINGE IVP PRN ×2 (05:17→16:49)
[2022-07-21 06:57] LABS: Glucose,Whole Blood 269 mg/dL (70-110)
[2022-07-21] MEDS: INSULIN ASPART (NovoLOG) 100 UNIT/ML VIAL SQ SCH ×4 (08:44→21:33)
[2022-07-21] MEDS: PANTOPRAZOLE 40 MG TABLET PO SCH (08:45)
[2022-07-21] MEDS: LOSARTAN 50 MG TAB PO SCH (08:45)
[2022-07-21] MEDS: ATORVASTATIN 40 MG TAB PO SCH (08:45)
[2022-07-21] MEDS: METOPROLOL TARTRATE 25 MG TAB PO SCH ×3 (08:45→21:34)
[2022-07-21] MEDS: FOLIC ACID 1 MG TAB PO SCH (08:45)
[2022-07-21] MEDS: FENOFIBRATE 160 MG TAB PO SCH (08:46)
[2022-07-21 09:47] LABS: African American GFR (CKD) 20.8 (60.0-200.0); Albumin 2.8 g/dL (3.8-4.9); Albumin/Globulin Ratio 1.08 (1.60-3.17); Anion Gap 9.8 mmol/L (10.00-18.00); BUN/Creat Ratio 14.88 Ratio (12.00-20.00); Blood Urea Nitrogen 50.6 mg/dL (9.0-27.0); Calcium 7.8 mg/dL (8.7-10.3); Carbon Dioxide 23.2 mmol/L (20.0-27.5); Globulin 2.6 g/dL (1.6-3.3); Non-African American GFR(CKD) 17.9 (60.0-200.0); Potassium 4.2 mmol/L (3.5-5.5); Total Bilirubin 0.3 mg/dL (0.30-1.20); Total Protein 5.4 g/dL (6.2-8.2)
[2022-07-21 09:57] LABS: Basophils # (A) 0.04 X 10*3/uL (0.00-0.10); Basophils % (A) 0.3 %; Eosinophils # (A) 0.22 X 10*3/uL (0.04-0.35); Eosinophils % (A) 1.7 %; HCT 25.4 % (39.6-50.0); HGB 8.2 g/dL (13.0-17.0); Immature Grans, Automated 0.6 %; Lymphocytes # (A) 1.22 X 10*3/uL (0.90-5.00); Lymphocytes % (A) 9.3 %; MCH 28.1 pg (27.0-32.0); MCHC 32.3 g/dL (32.0-37.0); Mean Platelet Volume 11.3 fL (9.5-12.2); Monocytes # (A) 1.34 X 10*3/uL (0.20-1.00); Monocytes % (A) 10.2 %; NRBC Per 100 WBC 0 /100 WBCS (0.0-0.0); Neutrophils # (A) 10.18 X 10*3/uL (1.80-7.70); Neutrophils % (A) 77.9 %; Platelet Count 178 X 10*3/uL (140-440); RBC 2.92 X 10*6/uL (4.40-5.60); RDW 15.5 % (11.5-14.5); WBC 13.08 X 10*3/uL (4.50-10.00)
[2022-07-21 12:02] LABS: Glucose,Whole Blood 319 mg/dL (70-110)
[2022-07-21] MEDS: SODIUM CHLORIDE 0.9% 1,000 ML IV SCH (13:05)
--- NOTE | 2022-07-21 13:29 | P.PN ---
Subjective Progress Note Date: 07/21/22 Principal diagnosis: Left lower lobe community-acquired pneumonia, on Rocephin we'll continue Acute kidney disease, transient renal function and monitor electrolytes closely Coronary artery disease ischemic cardiomyopathy, continuation of home medications Diabetes mellitus uncontrolled with hyperglycemia continue sliding scale insulin and home medications 07/21/2022, patient seen eval reexamined during the rounds labs reviewed medications reviewed care plan discussed, respiratory status continued to improve however still cough congestion and yellowish sputum production is present, blood cultures no growth, patient remains on broad-spectrum antibiotic for left lower lobe pneumonia patient has a component of pleuritic chest pain, responded well with pain medicine, patient has been evaluated by surgical services for cholecystitis, patient is scheduled for cholecystectomy early next week 07/20/2022, patient seen and evaluated examined, cough congestion slightly imp roved still however producing greenish sputum, sputum cultures are pending however blood cultures have been negative so far. Patient is status post HIDA scan that will not visualized likely related to cystic-type obstruction or cholecystitis, general surgery have been consulted to labs from today reviewed white cell count is 14.74, hemoglobin and hematocrit 8.9/27, BUN/creatinine 45.9/2.5 blood sugar mostly higher than 300 range Patient is a 66-year-old female came into the hospital with a developing right upper quadrant pain along with nausea and vomiting started 1 day prior to coming to the hospital, ongoing intermittent diarrhea present as well, denies any fever or chills so throat has some problems with cough and shortness of breath as well. Her past medical history significant for diabetes dyslipidemia hypertension hypertensive cardiovascular disease hypothyroidism, chronic neuro claudio and leg edema, status post AICD, coronary artery disease status post CABG 3 and placement for ischemic cardiomyopathy with AICD, status post left BKA, labs reviewed CBC within normal limit BUN/creatinine 48/2.01 blood sugar is 340. Computed tomography scan of the chest positive for left lower lobe consolidation along with trace pleural effusion consistent with pneumonia evidence of cholelithiasis seen as well. Currently patient is on IV Rocephin along with continuation of home medications Objective - Vital Signs Vital signs: Vital Signs Temp 98.6 F 07/21/22 07:00 Pulse 68 07/21/22 08:00 Resp 16 07/21/22 08:00 BP 117/59 07/21/22 07:00 Pulse Ox 92 L 07/21/22 07:00 FiO2 Intake & Output 07/20/22 07/21/22 07/21/22 18:59 06:59 18:59 Intake Total 360 Output Total 825 750 Balance -825 -750 360 Weight 90.718 kg Intake: Oral 360 Output: Urine 825 750 Emesis 0 Other: Voiding Method Urinal Urinal Urinal # Voids 1 - Exam - Constitutional General appearance: average body habitus, disheveled - EENT Eyes: EOMI, PERRLA ENT: normal oropharynx Ears: bilateral: normal - Neck Carotids: bilateral: upstroke normal Thyroid: bilateral: normal size - Respiratory Respiratory: bilateral: CTA - Cardiovascular Rhythm: regular Heart sounds: normal: S1, S2 - Gastrointestinal General gastrointestinal: decreased bowel sounds, soft - Integumentary Integumentary: normal turgor - Neurologic Neurologic: CNII-XII intact - Musculoskeletal Musculoskeletal: generalized weakness, strength equal bilaterally - Psychiatric Psychiatric: A&O x's 3, appropriate affect, intact judgment & insight - Labs CBC & Chem 7: 07/21/22 05:11 07/21/22 05:11 Labs: Abnormal Lab Results - Last 24 Hours (Table) 07/20/22 07/20/22 07/21/22 Range/Units 17:14 20:17 05:11 WBC (4.50-10.00) X 10*3/uL RBC (4.40-5.60) X 10*6/uL Hgb (13.0-17.0) g/dL Hct (39.6-50.0) % RDW (11.5-14.5) % Immature Gran # (0.00-0.04) X 10*3/uL Neutrophils # (1.80-7.70) X 10*3/uL Monocytes # (0.20-1.00) X 10*3/uL Sodium 132 L (135-145) mmol/L Anion Gap 9.80 L (10.00-18.00) mmol/L BUN 50.6 H (9.0-27.0) mg/dL Creatinine 3.4 H (0.6-1.5) mg/dL Est GFR (CKD-EPI)AfAm 20.8 L (60.0-200.0) Est GFR (CKD-EPI)NonAf 17.9 L (60.0-200.0) Glucose 252 H (70-110) mg/dL POC Glucose (mg/dL) 392 H 373 H (70-110) mg/dL Calcium 7.8 L (8.7-10.3) mg/dL ALT 9 L (10-49) U/L Total Protein 5.4 L (6.2-8.2) g/dL Albumin 2.8 L (3.8-4.9) g/dL Albumin/Globulin Ratio 1.08 L (1.60-3.17) g/dL 07/21/22 07/21/22 07/21/22 Range/Units 05:11 06:55 12:00 WBC 13.08 H (4.50-10.00) X 10*3/uL RBC 2.92 L (4.40-5.60) X 10*6/uL Hgb 8.2 L (13.0-17.0) g/dL Hct 25.4 L (39.6-50.0) % RDW 15.5 H (11.5-14.5) % Immature Gran # 0.08 H (0.00-0.04) X 10*3/uL Neutrophils # 10.18 H (1.80-7.70) X 10*3/uL Monocytes # 1.34 H (0.20-1.00) X 10*3/uL Sodium (135-145) mmol/L Anion Gap (10.00-18.00) mmol/L BUN (9.0-27.0) mg/dL Creatinine (0.6-1.5) mg/dL Est GFR (CKD-EPI)AfAm (60.0-200.0) Est GFR (CKD-EPI)NonAf (60.0-200.0) Glucose (70-110) mg/dL POC Glucose (mg/dL) 269 H 319 H (70-110) mg/dL Calcium (8.7-10.3) mg/dL ALT (10-49) U/L Total Protein (6.2-8.2) g/dL Albumin (3.8-4.9) g/dL Albumin/Globulin Ratio (1.60-3.17) g/dL Microbiology - Last 24 Hours (Table) 07/18/22 19:49 Blood Culture - Preliminary Blood No Growth after 48 hours 07/18/22 19:56 Blood Culture - Preliminary Blood No Growth after 48 hours 07/18/22 07:29 Gram Stain - Preliminary Sputum Sputum Culture - Preliminary Assessment and Plan Assessment: Left lower lobe community-acquired pneumonia, on Rocephin we'll continue Acute cholecystitis, surgery on consult, planned for cholecystectomy early next week Acute kidney disease, transient renal function and monitor electrolytes closely Coronary artery disease ischemic cardiomyopathy, continuation of home medica tions Diabetes mellitus uncontrolled with hyperglycemia continue sliding scale insulin and home medications Plan: As above Time with Patient: Greater than 30
--- NOTE | 2022-07-21 14:37 | P.PN ---
Subjective Progress Note Date: 07/21/22 CHIEF COMPLAINT: Abdominal pain HISTORY OF PRESENT ILLNESS: The patient is a 66 -year-old female presented with abdominal pain and diagnostic studies of gallstones. Additionally, patient had acute kidney injury. He is eating beef stroganoff and string beans. He reports right upper quadrant pain. He prefers liquid diet. ROS: No reports of nausea and vomiting. No fevers or chills. No new chest pain. No productive sputum PHYSICAL EXAM: VITAL SIGNS: Reviewed CONSTITUTIONAL: Well developed and in no acute distress. EYES: Conjuctivae without sclera icterus. Extraocular movements grossly intact. HEAD, EARS, NOSE, THROAT: Moist buccal mucosa. Head is atraumatic, normocephalic. Hears conversational speech. No nasal drainage. RESPIRATORY: Non-labored respirations and equal bilateral excursions. CARDIOVASCULAR: Palpable 2+ radial pulses. ABDOMEN: Right upper quadrant abdominal pain. No peritonitis. MUSCULOSKELETAL: No gross deformity of the lower extremities noted. No clubbing. No cyanosis. SKIN: Good skin turgor. Well perfused. NEUROLOGIC: Cranial nerves II through XII grossly intact. No focal or lateralizing signs. PSYCH: Appropriate affect. Alert and oriented to person, place and time. CLINICAL LABS: Reviewed. Creatinine elevated at 2.5 to 3.4. Sodium low 132. LFTs not elevated. WBC elevated over 13,000 ASSESSMENT: 1. Gallstones 2. Acute kidney injury 3. Hyponatremia 4. Leukocytosis PLAN: 1. IV fluid hydration for acute kidney injury 2. Per patient request, downgrade diet to full liquids 3. Patient is elevated risk for complications due to acute kidney injury for cholecystectomy Objective - Vital Signs Vital signs: Vital Signs Temp 98.6 F 07/21/22 07:00 Pulse 68 07/21/22 08:00 Resp 16 07/21/22 08:00 BP 117/59 07/21/22 07:00 Pulse Ox 92 L 07/21/22 07:00 FiO2 Intake & Output 07/20/22 07/21/22 07/21/22 18:59 06:59 18:59 Intake Total 360 Output Total 825 750 Balance -825 -750 360 Weight 90.718 kg Intake: Oral 360 Output: Urine 825 750 Emesis 0 Other: Voiding Method Urinal Urinal Urinal # Voids 1 - Labs CBC & Chem 7: 07/21/22 05:11 07/21/22 05:11 Labs: Abnormal Lab Results - Last 24 Hours (Table) 07/20/22 07/20/22 07/21/22 Range/Units 17:14 20:17 05:11 WBC (4.50-10.00) X 10*3/uL RBC (4.40-5.60) X 10*6/uL Hgb (13.0-17.0) g/dL Hct (39.6-50.0) % RDW (11.5-14.5) % Immature Gran # (0.00-0.04) X 10*3/uL Neutrophils # (1.80-7.70) X 10*3/uL Monocytes # (0.20-1.00) X 10*3/uL Sodium 132 L (135-145) mmol/L Anion Gap 9.80 L (10.00-18.00) mmol/L BUN 50.6 H (9.0-27.0) mg/dL Creatinine 3.4 H (0.6-1.5) mg/dL Est GFR (CKD-EPI)AfAm 20.8 L (60.0-200.0) Est GFR (CKD-EPI)NonAf 17.9 L (60.0-200.0) Glucose 252 H (70-110) mg/dL POC Glucose (mg/dL) 392 H 373 H (70-110) mg/dL Calcium 7.8 L (8.7-10.3) mg/dL ALT 9 L (10-49) U/L Total Protein 5.4 L (6.2-8.2) g/dL Albumin 2.8 L (3.8-4.9) g/dL Albumin/Globulin Ratio 1.08 L (1.60-3.17) g/dL 07/21/22 07/21/22 07/21/22 Range/Units 05:11 06:55 12:00 WBC 13.08 H (4.50-10.00) X 10*3/uL RBC 2.92 L (4.40-5.60) X 10*6/uL Hgb 8.2 L (13.0-17.0) g/dL Hct 25.4 L (39.6-50.0) % RDW 15.5 H (11.5-14.5) % Immature Gran # 0.08 H (0.00-0.04) X 10*3/uL Neutrophils # 10.18 H (1.80-7.70) X 10*3/uL Monocytes # 1.34 H (0.20-1.00) X 10*3/uL Sodium (135-145) mmol/L Anion Gap (10.00-18.00) mmol/L BUN (9.0-27.0) mg/dL Creatinine (0.6-1.5) mg/dL Est GFR (CKD-EPI)AfAm (60.0-200.0) Est GFR (CKD-EPI)NonAf (60.0-200.0) Glucose (70-110) mg/dL POC Glucose (mg/dL) 269 H 319 H (70-110) mg/dL Calcium (8.7-10.3) mg/dL ALT (10-49) U/L Total Protein (6.2-8.2) g/dL Albumin (3.8-4.9) g/dL Albumin/Globulin Ratio (1.60-3.17) g/dL Microbiology - Last 24 Hours (Table) 07/18/22 19:49 Blood Culture - Preliminary Blood No Growth after 48 hours 07/18/22 19:56 Blood Culture - Preliminary Blood No Growth after 48 hours 07/18/22 07:29 Gram Stain - Preliminary Sputum Sputum Culture - Preliminary
[2022-07-21 16:41] LABS: Glucose,Whole Blood 345 mg/dL (70-110)
[2022-07-21 21:10] LABS: Glucose,Whole Blood 290 mg/dL (70-110)
[2022-07-22] MEDS: LEVOTHYROXINE 125 MCG TAB PO SCH (05:24)
[2022-07-22] MEDS: PIPERACILLIN-TAZOBACTAM 3.375 GM in SODIUM CHLORIDE 0.9% 100 ML IVPB SCH ×3 (05:24→20:15)
[2022-07-22 05:50] LABS: African American GFR (CKD) 14 (>60 ml/min/1.73 sqM); Anion Gap 11 mmol/L; Blood Urea Nitrogen 62 mg/dL (9-20); Calcium 7.2 mg/dL (8.4-10.2); Carbon Dioxide 21 mmol/L (22-30); Chloride 99 mmol/L (98-107); Glucose 259 mg/dL (74-99); Non-African American GFR(CKD) 12 (>60 ml/min/1.73 sqM); Potassium 4.3 mmol/L (3.5-5.1); Sodium 131 mmol/L (137-145)
[2022-07-22 07:18] LABS: Glucose,Whole Blood 286 mg/dL (70-110)
[2022-07-22] MEDS: METOPROLOL TARTRATE 25 MG TAB PO SCH ×3 (08:59→20:15)
[2022-07-22] MEDS: PANTOPRAZOLE 40 MG TABLET PO SCH (08:59)
[2022-07-22] MEDS: FENOFIBRATE 160 MG TAB PO SCH (08:59)
[2022-07-22] MEDS: HYDROmorphone 0.5 MG/0.5 ML SYRINGE IVP PRN ×2 (08:59→18:50)
[2022-07-22] MEDS: FOLIC ACID 1 MG TAB PO SCH (08:59)
[2022-07-22] MEDS: ATORVASTATIN 40 MG TAB PO SCH (08:59)
[2022-07-22] MEDS: INSULIN ASPART (NovoLOG) 100 UNIT/ML VIAL SQ SCH ×4 (09:00→21:06)
--- NOTE | 2022-07-22 09:24 | P.NPCON ---
History of Present Illness - Reason for Consult acute renal failure - History of Present Illness Reason for consultation: Acute kidney injury History of present illness: Patient is a 66-year-old male seen in renal consultation for acute kidney injury. Patient's creatinine on admission on 07/18/2022 was 2.01 and is up to 4.66 today. Patient presented to the hospital with abdominal discomfort with pain mostly on the right side of his abdomen. He was also having nausea and vomiting prior to admission. Patient is noted to have gallstones with concern for cholecystitis and is being followed by surgery. Patient also complains of a reactive cough that dark phlegm. He is currently on antibiotics for left lower lobe pneumonia and is being followed by pulmonology. Patient has long-standing history of diabetes mellitus. Patient has been receiving Cozaar as well as Kerendia which she takes outpatient. He's currently receiving normal saline at 50 mL an hour. Patient has been voiding. Urine output documented is 1.57 L in the last 24 hours. He has been voiding in the urinal. Blood pressures were controlled on admission but recently they have been low readings including a reading of 93/53 last night. Patient does have history of coronary disease with cardiac stenting as well as CABG. Patient states his mother was on hemodialysis but is now disease. He denies regular use of nonsteroidals. She has long- standing history of diabetes. Vital signs are stable. General: Awake. No acute distress. HEENT: Head exam is unremarkable. LUNGS: Breath sounds decreased. HEART: Rate and Rhythm are regular. ABDOMEN: Soft, obese. Mild tenderness to touch. EXTREMITITES: Bilateral [id number] habitation's. Past Medical History Past Medical History: Heart Failure, Diabetes Mellitus, Diabetes Mellitus, Eye Disorder, GERD/Reflux, Hearing Disorder / Deafness, Hyperlipidemia, Hypertension, Myocardial Infarction ([place]), Osteoarthritis (OA), Renal Disease, Skin Disorder, Thyroid Disorder Additional Past Medical History / Comment(s): IDDM type II, neuropathy bilateral hands/forearms/lower legs/feet, WCC pt, bilateral leg edema, [place]. wounds right foot w/wound vac, ischemic cardiomyopathy/AICD, vtach, past medical record documents paroxysmal Afib/pt does not recall this, bilateral lower leg intermittent claudication/PAD, chronic renal disease stage III, anemia- transfusion in December per pt., bilateral tinnitis/[place], hypothyroidchronic renal disease stage III, anemia, bilateral tinnitis/[place], hypothyroid, arthritis bilateral hands with R hand worse, Last Myocardial Infarction Date:: 2006 History of Any Multi-Drug Resistant Organisms: None Reported Past Surgical History: AICD, Coronary Bypass/CABG, Heart Catheterization, Heart Catheterization With Stent, Pacemaker Additional Past Surgical History / Comment(s): PCI with one stent 1998, 2006 CABG 3 vessel and AICD, DFTs, aortagram with runoff, colonoscopy, bilateral cataract removals/lens implants, multiple debridements of wounds, left bka Past Anesthesia/Blood Transfusion Reactions: No Reported Reaction Date of Last Stent Placement:: 1998 Type of Cardiac Device: Permanent Pacemaker, AICD Device Placement Date:: 2006 Past Psychological History: No Psychological Hx Reported Smoking Status: Former smoker Past Alcohol Use History: None Reported Past Drug Use History: None Reported - Past Family History Sister(s) Additional Family Medical History / Comment(s): Pt has a sister with COPD, another sister with diabetes/copd/htn and another sister with diabetes. Father Family Medical History: Myocardial Infarction ([place]) Additional Family Medical History / Comment(s): Father of a [place] at the age of 75 yrs. Brother(s) Family Medical History: Coronary Artery Disease (CAD), CVA/TIA, Diabetes Mellitus, Myocardial Infarction ([place]) Additional Family Medical History / Comment(s): One brother had a [place] at 38yrs and at age 48yrs. Another brother is alive and had a stroke. Mother Family Medical History: Diabetes Mellitus, Renal Disease Additional Family Medical History / Comment(s): Mother at age 62 from renal failure Medications and Allergies Home Medications Medication Instructions Recorded Confirmed Type Fenofibrate 160 mg PO DAILY 03/31/14 07/18/22 History Insulin Lispro [humaLOG Kwikpen] See Protocol SQ AC-TID 03/31/14 07/18/22 History Atorvastatin [Lipitor] 40 mg PO DAILY 05/24/20 07/18/22 History Metoprolol Tartrate 25 mg PO TID 05/24/20 07/18/22 History Aspirin 81 mg PO DAILY 90 Days #90 chew 12/16/20 07/18/22 Rx Folic Acid 1 mg PO DAILY 90 Days #90 tab 12/27/20 07/18/22 Rx Ergocalciferol (Vitamin D2) 1,250 mcg PO MO 06/02/21 07/18/22 History [Drisdol (50,000 Iu)] Insulin Glargine,Hum.rec.anlog 30 units SQ HS 06/02/21 07/18/22 History [Toujeo Solostar] Levothyroxine Sodium [Synthroid] 50 mcg PO DAILY 06/02/21 07/18/22 History Levothyroxine Sodium [Synthroid] 200 mcg PO DAILY 06/02/21 07/25/21 History Losartan [Cozaar] 50 mg PO DAILY 06/02/21 07/18/22 History Insulin Lispro [humaLOG Kwikpen] 5 unit SQ AC-TID 07/25/21 07/18/22 History Finerenone [Kerendia] 10 mg PO HS 07/18/22 07/18/22 History Furosemide [Lasix] 40 mg PO BID 07/18/22 07/18/22 History Omeprazole 40 mg PO DAILY 07/18/22 07/18/22 History Allergies Allergy/AdvReac Type Severity Reaction Status Date / Time No Known Allergies Allergy Verified 07/18/22 14:56 Physical Exam Vitals: Vital Signs Temp Pulse Resp BP Pulse Ox 07/22/22 07:00 98.4 F 64 18 132/52 92 L 07/22/22 02:17 98.3 F 67 15 114/64 90 L 07/21/22 20:32 98.3 F 65 17 93/53 90 L 07/21/22 14:03 98.2 F 65 16 106/47 93 L 07/21/22 14:00 65 16 Intake and Output 07/21/22 07/22/22 07/22/22 22:59 06:59 14:59 Output Total 250 500 Balance -250 -500 Output: Urine 250 500 Other: Voiding Method Urinal # Bowel Movements 0 Results - Lab Results Most recent lab results Calcium 7.2 mg/dL (8.4-10.2) L 07/22/22 05:28 07/21/22 05:11 07/22/22 05:28 Assessment and Plan Plan: Assessment: 1. Acute kidney injury secondary to ATN secondary to hypotension and further worsened with the use of Cozaar and Kerendia. Creatinine was 2 on admission and is 4.66 today. Rule out urinary retention. No hydronephrosis noted on CAT scan. Creatinine in February 2021 was as low as 1.0. 2. Hyponatremia secondary to acute kidney injury. 3. Metabolic acidosis secondary to acute kidney injury. 4. Pneumonia maintained on antibiotics. 5. Gallstones with concern for cholecystitis been followed by surgery. 6. Diabetes mellitus. 7. Hypertension with chronic kidney disease. Currently controlled with lower readings yesterday. 8. Anemia. Rule out iron deficiency. 9. History of coronary disease status post cardiac stenting and CABG. 10. Rule out chronic disease. Patient does have 1+ proteinuria which is most likely secondary to underlying diabetic kidney disease. Plan: Stop Cozaar and Kerendia. Maintain IV fluids - increase rate to 75 mL an hour. Check bladder scan to rule out urinary retention. Add oral bicarbonate. Avoid nephrotoxins. Continue to monitor renal function and urine output. Check iron studies. No urgent need for renal replacement therapy at this time. Patient advised to follow up outpatient upon discharge. Thank you for the consultation. I will continue to follow the patient with you during his hospital stay.
[2022-07-22] MEDS ORDERED: MAGNESIUM SULFATE-D5W PMX 1 GM in DEXTROSE/WATER 1 100ML.BAG IVPB ONE (10:45)
[2022-07-22 11:45] LABS: Glucose,Whole Blood 332 mg/dL (70-110)
--- NOTE | 2022-07-22 11:54 | P.PN ---
Subjective Progress Note Date: 07/22/22 Principal diagnosis: Left lower lobe community-acquired pneumonia, on Rocephin we'll continue Acute kidney disease, transient renal function and monitor electrolytes closely Coronary artery disease ischemic cardiomyopathy, continuation of home medications Diabetes mellitus uncontrolled with hyperglycemia continue sliding scale insulin and home medications 07/22/2022, patient breathing K more comfortably, still have intermittent cough and sputum production, no night sweats fever or chills present, abdominal pain appears to be slightly better, patient has been evaluated by nephrology for acute tubular necrosis thought to be related to hypertension with concomitant use of Cozaar currently to 4.6 now R inhibitor and hold and patient has been gently rehydrated, patient has been on Zosyn for pneumonia as well as the acute cholecystitis being planned for surgery early next week 07/21/2022, patient seen eval reexamined during the rounds labs reviewed medications reviewed care plan discussed, respiratory status continued to improve however still cough congestion and yellowish sputum production is present, blood cultures no growth, patient remains on broad-spectrum antibiotic for left lower lobe pneumonia patient has a component of pleuritic chest pain, responded well with pain medicine, patient has been evaluated by surgical services for cholecystitis, patient is scheduled for cholecystectomy early next week 07/20/2022, patient seen and evaluated examined, cough congestion slightly improved still however producing greenish sputum, sputum cultures are pending however blood cultures have been negative so far. Patient is status post HIDA scan that will not visualized likely related to cystic-type obstruction or cholecystitis, general surgery have been consulted to labs from today reviewed white cell count is 14.74, hemoglobin and hematocrit 8.9/27, BUN/creatinine 45.9/2.5 blood sugar mostly higher than 300 range Patient is a 66-year-old female came into the hospital with a developing right upper quadrant pain along with nausea and vomiting started 1 day prior to coming to the hospital, ongoing intermittent diarrhea present as well, denies any fever or chills so throat has some problems with cough and shortness of breath as well. Her past medical history significant for diabetes dyslipidemia hypertension hypertensive cardiovascular disease hypothyroidism, chronic neuropathy and leg edema, status post AICD, coronary artery disease status post CABG 3 and placement for ischemic cardiomyopathy with AICD, status post left BKA, labs reviewed CBC within normal limit BUN/creatinine 48/2.01 blood sugar is 340. Computed tomography scan of the chest positive for left lower lobe consolidation along with trace pleural effusion consistent with pneumonia evidence of cholelithiasis seen as well. Currently patient is on IV Rocephin along with continuation of home medications Objective - Vital Signs Vital signs: Vital Signs Temp 98.4 F 07/22/22 07:00 Pulse 64 07/22/22 07:00 Resp 18 07/22/22 07:00 BP 132/52 07/22/22 07:00 Pulse Ox 92 L 07/22/22 07:00 FiO2 Intake & Output 07/21/22 07/22/22 07/22/22 18:59 06:59 18:59 Intake Total 478 118 Output Total 750 150 Balance 478 -750 -32 Intake: Oral 478 118 Output: Urine 750 Post Void Residual 150 Other: Voiding Method Urinal Urinal # Voids 0 # Bowel Movements 0 0 - Exam - Constitutional General appearance: average body habitus, disheveled - EENT Eyes: EOMI, PERRLA ENT: normal oropharynx Ears: bilateral: normal - Neck Carotids: bilateral: upstroke normal Thyroid: bilateral: normal size - Respiratory Respiratory: bilateral: CTA - Cardiovascular Rhythm: regular Heart sounds: normal: S1, S2 - Gastrointestinal General gastrointestinal: decreased bowel sounds, soft - Integumentary Integumentary: normal turgor - Neurologic Neurologic: CNII-XII intact - Musculoskeletal Musculoskeletal: generalized weakness, strength equal bilaterally - Psychiatric Psychiatric: A&O x's 3, appropriate affect, intact judgment & insight - Labs CBC & Chem 7: 07/21/22 05:11 07/22/22 05:28 Labs: Abnormal Lab Results - Last 24 Hours (Table) 07/21/22 07/21/22 07/21/22 Range/Units 12:00 16:39 21:08 Sodium (137-145) mmol/L Carbon Dioxide (22-30) mmol/L BUN (9-20) mg/dL Creatinine (0.66-1.25) mg/dL Glucose (74-99) mg/dL POC Glucose (mg/dL) 319 H 345 H 290 H (70-110) mg/dL Calcium (8.4-10.2) mg/dL 07/22/22 07/22/22 07/22/22 Range/Units 05:28 07:16 11:43 Sodium 131 L (137-145) mmol/L Carbon Dioxide 21 L (22-30) mmol/L BUN 62 H (9-20) mg/dL Creatinine 4.66 H (0.66-1.25) mg/dL Glucose 259 H (74-99) mg/dL POC Glucose (mg/dL) 286 H 332 H (70-110) mg/dL Calcium 7.2 L (8.4-10.2) mg/dL Microbiology - Last 24 Hours (Table) 07/18/22 19:49 Blood Culture - Preliminary Blood No Growth after 72 hours 07/18/22 19:56 Blood Culture - Preliminary Blood No Growth after 72 hours Assessment and Plan Assessment: Left lower lobe community-acquired pneumonia, on Zosyn we'll continue Acute cholecystitis, surgery on consult, planned for cholecystectomy early next week Acute kidney disease, with worsening of renal functions, nephrology is following Anitra as well as No on hold Coronary artery disease ischemic cardiomyopathy, continuation of home medicat ions Diabetes mellitus uncontrolled with hyperglycemia continue sliding scale insulin and home medications Plan: As above Time with Patient: Greater than 30
[2022-07-22] MEDS: SODIUM CHLORIDE 0.9% 1,000 ML IV SCH ×2 (12:54→22:20)
[2022-07-22] MEDS: SODIUM BICARBONATE TAB 650 MG TAB PO SCH ×2 (12:54→20:15)
--- NOTE | 2022-07-22 15:19 | P.PN ---
Subjective Progress Note Date: 07/22/22 CHIEF COMPLAINT: Abdominal pain HISTORY OF PRESENT ILLNESS: The patient is a 66 -year-old female presented with abdominal pain and diagnostic studies of gallstones. His diet was downgraded to full liquid diet. He still reports intermittent right upper quadrant abdominal pain. ROS: No reports of nausea and vomiting. No fevers or chills. No new chest pain. No productive sputum PHYSICAL EXAM: VITAL SIGNS: Reviewed CONSTITUTIONAL: Well developed and in no acute distress. EYES: Conjuctivae without sclera icterus. Extraocular movements grossly intact. HEAD, EARS, NOSE, THROAT: Moist buccal mucosa. Head is atraumatic, normocephalic. Hears conversational speech. No nasal drainage. RESPIRATORY: Non-labored respirations and equal bilateral excursions. CARDIOVASCULAR: Palpable 2+ radial pulses. ABDOMEN: Right upper quadrant abdominal pain. No peritonitis. MUSCULOSKELETAL: No gross deformity of the lower extremities noted. No clubbing. No cyanosis. SKIN: Good skin turgor. Well perfused. NEUROLOGIC: Cranial nerves II through XII grossly intact. No focal or lateralizing signs. PSYCH: Appropriate affect. Alert and oriented to person, place and time. CLINICAL LABS: Reviewed. Creatinine elevated at 2.5 to 3.4, now 4.66. Blood sugar glucose 290-332 ASSESSMENT: 1. Gallstones 2. Acute kidney injury 3. Hyponatremia 4. Leukocytosis 5. Diabetes type 2, poorly controlled with hyperglycemia PLAN: 1. Appreciate nephrology consult for acute kidney injury/acute renal failure 2. Overall, patient elevated risk for surgical complications in the setting of acute renal failure for cholecystectomy Objective - Vital Signs Vital signs: Vital Signs Temp 96.3 F L 07/22/22 13:11 Pulse 61 07/22/22 13:11 Resp 18 07/22/22 13:11 BP 126/74 07/22/22 13:11 Pulse Ox 94 L 07/22/22 13:11 FiO2 Intake & Output 07/21/22 07/22/22 07/22/22 18:59 06:59 18:59 Intake Total 478 236 Output Total 750 300 Balance 478 -750 -64 Intake: Oral 478 236 Output: Urine 750 150 Post Void Residual 150 Other: Voiding Method Urinal Urinal # Voids 0 # Bowel Movements 0 0 - Labs CBC & Chem 7: 07/21/22 05:11 07/22/22 05:28 Labs: Abnormal Lab Results - Last 24 Hours (Table) 07/21/22 07/21/22 07/22/22 Range/Units 16:39 21:08 05:28 Sodium 131 L (137-145) mmol/L Carbon Dioxide 21 L (22-30) mmol/L BUN 62 H (9-20) mg/dL Creatinine 4.66 H (0.66-1.25) mg/dL Glucose 259 H (74-99) mg/dL POC Glucose (mg/dL) 345 H 290 H (70-110) mg/dL Calcium 7.2 L (8.4-10.2) mg/dL 07/22/22 07/22/22 Range/Units 07:16 11:43 Sodium (137-145) mmol/L Carbon Dioxide (22-30) mmol/L BUN (9-20) mg/dL Creatinine (0.66-1.25) mg/dL Glucose (74-99) mg/dL POC Glucose (mg/dL) 286 H 332 H (70-110) mg/dL Calcium (8.4-10.2) mg/dL Microbiology - Last 24 Hours (Table) 07/18/22 07:29 Gram Stain - Final Sputum Sputum Culture - Final 07/18/22 19:49 Blood Culture - Preliminary Blood No Growth after 72 hours 07/18/22 19:56 Blood Culture - Preliminary Blood No Growth after 72 hours
[2022-07-22 16:51] LABS: Glucose,Whole Blood 357 mg/dL (70-110)
[2022-07-22] MEDS: INSULIN DETEMIR (LEVEMIR) 100 UNIT/ML SYR SQ SCH (18:47)
[2022-07-22 20:37] LABS: Glucose,Whole Blood 348 mg/dL (70-110)
--- NOTE | 2022-07-23 00:04 | PN ---
PROGRESS NOTE DATE OF SERVICE: 07/21/2022 SUBJECTIVE: This 66-year-old gentleman, who was admitted with left lower lobe pneumonia, is on antibiotics. The patient is being closely monitored. Pulmonary and Surgery following the patient closely. No chest pain. No palpitations. No fever. The patient also had cholelithiasis also. OBJECTIVE: VITAL SIGNS: Pulse is 65, blood pressure 106/47, respirations 16. HEENT: Conjunctivae normal. NECK: No JVD. CARDIOVASCULAR: S1, S2. RESPIRATION: Breath sounds diminished at the bases. A few scattered rhonchi. ABDOMEN: Soft. NERVOUS SYSTEM: Nonfocal. LABORATORY DATA: Hemoglobin 8.2. rest of the labs are noted. ASSESSMENT: 1. Acute left lower lobe pneumonia. 2. Cholelithiasis. 3. Acute kidney injury. 4. Diabetes mellitus, type 2. 5. Multiple medical issues. RECOMMENDATIONS: This 66-year-old gentleman, who presented with multiple complex medical issues. We will monitor the patient closely. Continue with . Continue with antibiotics. Closely follow with Surgery and Pulmonary. Guarded prognosis. Further recommendations to follow. MMODL / IJN: [id number] / [facility]ENTERFred
--- NOTE | 2022-07-23 03:10 | PN ---
PROGRESS NOTE DATE OF SERVICE: 07/22/2022 SUBJECTIVE: This 66-year-old gentleman admitted with acute left lower lobe pneumonia. Also had acute kidney disease. No chest pain. No palpitations. No fever. The patient on antibiotics. PHYSICAL EXAMINATION: VITAL SIGNS: Pulse 61, blood pressure 110/70, respirations 18. HEENT: Conjunctivae normal. NECK: No JVD. CARDIOVASCULAR: S1, S2. RESPIRATION: Breath sounds diminished at the bases. A few scattered rhonchi. ABDOMEN: Soft. NERVOUS SYSTEM: Nonfocal. LABORATORY DATA: Reviewed. Glucose 357. ASSESSMENT: 1. Acute left lower lobe pneumonia, community-acquired. 2. Acute kidney injury. 3. History of coronary artery disease. 4. Diabetes mellitus, type 2. RECOMMENDATIONS: Recommend to continue current management and symptomatic treatment. Otherwise, we will add some insulin and continue to monitor. Prognosis guarded. Further recommendations to follow. MMODL / IJN: [id number] /
[2022-07-23] MEDS: LEVOTHYROXINE 125 MCG TAB PO SCH (05:31)
[2022-07-23] MEDS: PIPERACILLIN-TAZOBACTAM 3.375 GM in SODIUM CHLORIDE 0.9% 100 ML IVPB SCH ×3 (05:31→17:47)
[2022-07-23 06:26] LABS: Basophils % (A) 0 %; Eosinophils # (A) 0.5 k/uL (0-0.7); Eosinophils % (A) 5 %; Lymphocytes # (A) 0.8 k/uL (1.0-4.8); Lymphocytes % (A) 8 %; MCH 28.7 pg (25.0-35.0); MCHC 32.6 g/dL (31.0-37.0); MCV 88.1 fL (80.0-100.0); Mean Platelet Volume 8.5; Monocytes # (A) 0.7 k/uL (0-1.0); Monocytes % (A) 7 %; Neutrophils # (A) 7.4 k/uL (1.3-7.7); Neutrophils % (A) 78 %; Platelet Count 208 k/uL (150-450); RBC 3.07 m/uL (4.30-5.90); RDW 14.6 % (11.5-15.5); WBC 9.4 k/uL (3.8-10.6)
[2022-07-23 06:33] LABS: HGB 8.8 gm/dL (13.0-17.5)
[2022-07-23 06:40] LABS: African American GFR (CKD) 13 (>60 ml/min/1.73 sqM); Anion Gap 11 mmol/L; Blood Urea Nitrogen 59 mg/dL (9-20); Calcium 7.6 mg/dL (8.4-10.2); Carbon Dioxide 23 mmol/L (22-30); Chloride 100 mmol/L (98-107); Glucose 160 mg/dL (74-99); Magnesium 1.9 mg/dL (1.6-2.3); Non-African American GFR(CKD) 11 (>60 ml/min/1.73 sqM); Potassium 4.2 mmol/L (3.5-5.1); Sodium 134 mmol/L (137-145)
[2022-07-23 07:27] LABS: Glucose,Whole Blood 146 mg/dL (70-110)
[2022-07-23] MEDS: INSULIN ASPART (NovoLOG) 100 UNIT/ML VIAL SQ SCH ×4 (08:11→21:33)
[2022-07-23] MEDS: HYDROmorphone 0.5 MG/0.5 ML SYRINGE IVP PRN (08:28)
[2022-07-23] MEDS: ATORVASTATIN 40 MG TAB PO SCH (08:29)
[2022-07-23] MEDS: FOLIC ACID 1 MG TAB PO SCH (08:29)
[2022-07-23] MEDS: ASPIRIN 81 MG PO SCH (08:29)
[2022-07-23] MEDS: SODIUM BICARBONATE TAB 650 MG TAB PO SCH ×2 (08:29→21:03)
[2022-07-23] MEDS: ERGOCALCIFEROL 1,250 MCG (50,000 IU) CAPSULE PO SCH (08:29)
[2022-07-23] MEDS: PANTOPRAZOLE 40 MG TABLET PO SCH (08:29)
[2022-07-23] MEDS: FENOFIBRATE 160 MG TAB PO SCH (08:29)
[2022-07-23] MEDS: METOPROLOL TARTRATE 25 MG TAB PO SCH ×3 (08:29→21:03)
[2022-07-23 08:52] LABS: % Iron Saturation 15.46 (15.00-50.00)
[2022-07-23] MEDS ORDERED: SODIUM CHLORIDE 0.9% 2,000 ML IV ONE (09:30)
--- NOTE | 2022-07-23 10:36 | P.PN ---
Subjective Progress Note Date: 07/23/22 CHIEF COMPLAINT: Abdominal pain HISTORY OF PRESENT ILLNESS: Patient has had worsening renal function over the weekend. Creatinine is up to 4.92. Patient is making urine. He is followed by nephrology. Patient continues to complain of right upper quadrant abdominal pain with nausea. He also reports constipation. Afebrile. WBC is 9.4 hemoglobin 8.8 platelets 208 sodium is 134 potassium 4.2 creatinine 4.92 glucose 146 magnesium 1.9 Patient seen and examined with Dr. grimes PHYSICAL EXAM: VITAL SIGNS: Reviewed. GENERAL: Well-developed in no acute distress. HEENT: No sclera icterus. Extraocular movements grossly intact. Moist buccal mucosa. Head is atraumatic, normocephalic. ABDOMEN: Soft. Nondistended. Tenderness to palpation upper quadrant NEUROLOGIC: Alert and oriented. Cranial nerves II through XII grossly intact. ASSESSMENT: 1. Chronic cholecystitis. No evidence of gallbladder wall thickening on ultrasound. LFTs are normal 2. Cholelithiasis 3. Right upper quadrant abdominal pain 4. Pneumonia 5. Acute kidney injury 6. Cardiac history including ischemic cardiomyopathy with AICD and prior CABG 7. History of peripheral arterial disease PLAN: -Discussed patient's exam and lab findings with Dr. Grimes. Dr. grimes recommended a 2 L normal saline fluid bolus and proceed with laparoscopic cholecystectomy today -Plan for laparoscopic cholecystectomy on 07/23/[address] grimes -Continue antibiotics -Keep patient nothing by mouth Physician Alcohol Still Operator note has been reviewed by physician. Signing provider agrees with the documented findings, assessment, and plan of care. Objective - Vital Signs Vital signs: Vital Signs Temp 98.2 F 07/23/22 07:00 Pulse 63 07/23/22 07:00 Resp 18 07/23/22 07:00 BP 191/44 07/23/22 07:00 Pulse Ox 93 L 07/23/22 07:00 FiO2 Intake & Output 07/22/22 07/23/22 07/23/22 18:59 06:59 18:59 Intake Total 354 Output Total 625 250 Balance -271 -250 Intake: Oral 354 Output: Urine 475 250 Post Void Residual 150 Other: Voiding Method Urinal # Voids 2 - Labs CBC & Chem 7: 07/23/22 05:35 07/23/22 05:35 Labs: Abnormal Lab Results - Last 24 Hours (Table) 07/22/22 07/22/22 07/22/22 Range/Units 05:28 11:43 16:49 RBC (4.30-5.90) m/uL Hgb (13.0-17.5) gm/dL Hct (39.0-53.0) % Lymphocytes # (1.0-4.8) k/uL Sodium (137-145) mmol/L BUN (9-20) mg/dL Creatinine (0.66-1.25) mg/dL Glucose (74-99) mg/dL POC Glucose (mg/dL) 332 H 357 H (70-110) mg/dL Calcium (8.4-10.2) mg/dL Iron 29 L (65-175) ug/dL TIBC 188 L (228-460) ug/dL Transferrin 134.0 L (204.0-354.0) mg/dL Ferritin 897.0 H (22.0-322.0) ng/mL 07/22/22 07/23/22 07/23/22 Range/Units 20:35 05:35 05:35 RBC 3.07 L (4.30-5.90) m/uL Hgb 8.8 L D (13.0-17.5) gm/dL Hct 27.0 L (39.0-53.0) % Lymphocytes # 0.8 L (1.0-4.8) k/uL Sodium 134 L (137-145) mmol/L BUN 59 H (9-20) mg/dL Creatinine 4.92 H (0.66-1.25) mg/dL Glucose 160 H (74-99) mg/dL POC Glucose (mg/dL) 348 H (70-110) mg/dL Calcium 7.6 L (8.4-10.2) mg/dL Iron (65-175) ug/dL TIBC (228-460) ug/dL Transferrin (204.0-354.0) mg/dL Ferritin (22.0-322.0) ng/mL 07/23/22 Range/Units 07:25 RBC (4.30-5.90) m/uL Hgb (13.0-17.5) gm/dL Hct (39.0-53.0) % Lymphocytes # (1.0-4.8) k/uL Sodium (137-145) mmol/L BUN (9-20) mg/dL Creatinine (0.66-1.25) mg/dL Glucose (74-99) mg/dL POC Glucose (mg/dL) 146 H (70-110) mg/dL Calcium (8.4-10.2) mg/dL Iron (65-175) ug/dL TIBC (228-460) ug/dL Transferrin (204.0-354.0) mg/dL Ferritin (22.0-322.0) ng/mL Microbiology - Last 24 Hours (Table) 07/18/22 19:49 Blood Culture - Preliminary Blood No Growth after 96 hours 07/18/22 19:56 Blood Culture - Preliminary Blood No Growth after 96 hours 07/18/22 07:29 Gram Stain - Final Sputum Sputum Culture - Final
--- NOTE | 2022-07-23 10:41 | P.PN ---
Subjective Patient is seen in follow-up for acute kidney injury. Creatinine 4.92 today. Nonoliguric. Currently nothing by mouth. Blood pressure has been stable. On room air. Vital signs are stable. General: Awake. No acute distress. HEENT: Head exam is unremarkable. LUNGS: Breath sounds decreased. HEART: Rate and Rhythm are regular. ABDOMEN: Soft, obese. No significant tenderness. EXTREMITITES: Bilateral [id number] amputations noted. Objective - Vital Signs Vital signs: Vital Signs Temp 98.2 F 07/23/22 07:00 Pulse 63 07/23/22 07:00 Resp 18 07/23/22 07:00 BP 191/44 07/23/22 07:00 Pulse Ox 93 L 07/23/22 07:00 FiO2 Intake & Output 07/22/22 07/23/22 07/23/22 18:59 06:59 18:59 Intake Total 354 Output Total 625 250 450 Balance -271 -250 -450 Intake: Oral 354 Output: Urine 475 250 450 Post Void Residual 150 Other: Voiding Method Urinal # Voids 2 - Labs CBC & Chem 7: 07/23/22 05:35 07/23/22 05:35 Labs: Abnormal Lab Results - Last 24 Hours (Table) 07/22/22 07/22/22 07/22/22 Range/Units 05:28 11:43 16:49 RBC (4.30-5.90) m/uL Hgb (13.0-17.5) gm/dL Hct (39.0-53.0) % Lymphocytes # (1.0-4.8) k/uL Sodium (137-145) mmol/L BUN (9-20) mg/dL Creatinine (0.66-1.25) mg/dL Glucose (74-99) mg/dL POC Glucose (mg/dL) 332 H 357 H (70-110) mg/dL Calcium (8.4-10.2) mg/dL Iron 29 L (65-175) ug/dL TIBC 188 L (228-460) ug/dL Transferrin 134.0 L (204.0-354.0) mg/dL Ferritin 897.0 H (22.0-322.0) ng/mL 07/22/22 07/23/22 07/23/22 Range/Units 20:35 05:35 05:35 RBC 3.07 L (4.30-5.90) m/uL Hgb 8.8 L D (13.0-17.5) gm/dL Hct 27.0 L (39.0-53.0) % Lymphocytes # 0.8 L (1.0-4.8) k/uL Sodium 134 L (137-145) mmol/L BUN 59 H (9-20) mg/dL Creatinine 4.92 H (0.66-1.25) mg/dL Glucose 160 H (74-99) mg/dL POC Glucose (mg/dL) 348 H (70-110) mg/dL Calcium 7.6 L (8.4-10.2) mg/dL Iron (65-175) ug/dL TIBC (228-460) ug/dL Transferrin (204.0-354.0) mg/dL Ferritin (22.0-322.0) ng/mL 07/23/22 Range/Units 07:25 RBC (4.30-5.90) m/uL Hgb (13.0-17.5) gm/dL Hct (39.0-53.0) % Lymphocytes # (1.0-4.8) k/uL Sodium (137-145) mmol/L BUN (9-20) mg/dL Creatinine (0.66-1.25) mg/dL Glucose (74-99) mg/dL POC Glucose (mg/dL) 146 H (70-110) mg/dL Calcium (8.4-10.2) mg/dL Iron (65-175) ug/dL TIBC (228-460) ug/dL Transferrin (204.0-354.0) mg/dL Ferritin (22.0-322.0) ng/mL Microbiology - Last 24 Hours (Table) 07/18/22 19:49 Blood Culture - Preliminary Blood No Growth after 96 hours 07/18/22 19:56 Blood Culture - Preliminary Blood No Growth after 96 hours 07/18/22 07:29 Gram Stain - Final Sputum Sputum Culture - Final Assessment and Plan Plan: Assessment: 1. Acute kidney injury secondary to ATN secondary to hypotension and further worsened with the use of Cozaar and Kerendia. Creatinine was 2 on admission and is 4.92 today. Rule out urinary retention. No hydronephrosis noted on CAT scan. Creatinine in February 2021 was as low as 1.0. 2. Hyponatremia secondary to acute kidney injury. Improved. 3. Metabolic acidosis secondary to acute kidney injury. Improved. On oral bicarbonate. 4. Pneumonia maintained on antibiotics. 5. Gallstones with concern for cholecystitis been followed by surgery. Possible cholecystectomy today. 6. Diabetes mellitus. 7. Hypertension with chronic kidney disease. Stable. One high reading this morning. Continue to monitor. 8. Anemia. Iron deficiency noted. 9. History of coronary disease status post cardiac stenting and CABG. 10. Rule out chronic disease. Patient does have 1+ proteinuria which is most likely secondary to underlying diabetic kidney disease. 11. Hypomagnesemia from poor intake. Replaced. Improved. Plan: Stopped Cozaar and Kerendia. Maintain IV fluids. Continue to monitor bladder scans to make sure no urinary retention. Discussed with nurse. Avoid nephrotoxins. Continue to monitor renal function and urine output. Add IV iron. No urgent need for renal replacement therapy at this time. Continue to assess on daily basis. Patient advised to follow up outpatient upon discharge.
[2022-07-23] MEDS: SODIUM CHLORIDE 0.9% 1,000 ML IV SCH (11:06)
[2022-07-23] MEDS ORDERED: SODIUM CHLORIDE 0.9% 1,000 ML IV ONE ×2 (11:12→14:27)
[2022-07-23 11:14] LABS: Glucose,Whole Blood 98 mg/dL (70-110)
[2022-07-23] MEDS ORDERED: HEPARIN SODIUM,PORCINE/PF 5,000 UNIT/0.5 ML SYRINGE SQ ONE (11:33)
[2022-07-23] MEDS ORDERED: DEXAMETHASONE SOD PHOSPHATE 4 MG/ML 1 ML VIAL IVP ONE (11:34)
[2022-07-23] MEDS ORDERED: ONDANSETRON 4 MG/2 ML VIAL IVP ONE (11:34)
[2022-07-23] MEDS ORDERED: HEPARIN SODIUM,PORCINE 5,000 UNIT/ML 1 ML VIAL SQ ONE (11:43)
[2022-07-23] MEDS ORDERED: SUCCINYLCHOLINE CHLORIDE 200 MG/10 ML VIAL IV ONE (11:58)
[2022-07-23] MEDS ORDERED: fentaNYL (PF) 50 MCG/ML 2 ML AMP ONE (11:58)
[2022-07-23] MEDS ORDERED: ROCURONIUM 10 MG/ML (5 ML VIAL) IV ONE (11:58)
[2022-07-23] MEDS ORDERED: NEOSTIGMINE 1 MG/ML 10 ML VIAL ONE (11:58)
[2022-07-23] MEDS ORDERED: LIDOCAINE 2% INJ 20 MG/ML (2 ML VIAL) ONE (11:58)
[2022-07-23] MEDS ORDERED: GLYCOPYRROLATE 0.2 MG/ML 2 ML VIAL ONE (11:58)
[2022-07-23] MEDS ORDERED: SUGAMMADEX SODIUM 200 MG/2 ML SDV IV ONE (11:58)
[2022-07-23] MEDS ORDERED: PROPOFOL 10 MG/ML 20 ML VIAL IV ONE (11:58)
[2022-07-23] MEDS ORDERED: BUPIVACAINE (PF) 0.25% 30 ML VIAL SQ ONE (12:29)
--- NOTE | 2022-07-23 12:56 | P.OP ---
Date of Procedure: 07/23/22 Preoperative Diagnosis: Acute cholecystitis Postoperative Diagnosis: Acute cholecystitis Procedure(s) Performed: Laparoscopic cholecystectomy Anesthesia: TIN Surgeon: Prosper Schilling Estimated Blood Loss (ml): 25 Pathology: other (Gallbladder) Condition: stable Disposition: PACU Operative Findings: Acute cholecystitis Description of Procedure: The patient was placed on the operating table. The patient received a general endotracheal tube anesthesia. The patients abdomen was prepped and draped in the usual sterile fashion. Through an infraumbilical stab incision, the fascia of the anterior abdominal wall was grasped with a pair of Kochers and then the Veress needle was placed in the peritoneal cavity. Position of the Veress needle was confirmed with positive drop test. The abdomen was then insufflated. After adequate insufflation, the 10 mm trocar was placed in the peritoneal cavity. Following this the laparoscope was placed in the peritoneal cavity. The patient was placed in the head-up, right side up position and then a 5 mm trocar was placed in the right lateral and right subcostal position under direct visualization. A 8 mm trocar was placed in the epigastric position. The gallbladder appeared to be very inflamed. The gallbladder was grasped in the fundus and infundibulum. Traction on the gallbladder was placed in the lateral and the cephalad positions. The triangle of Calot was visualized.. The cystic duct was bluntly dissected until the union of the cystic duct and common bile duct was seen. A critical view of safety was achieved. The cystic duct was then divided and sealed with the Reyes rmonic scissors. A PDS Endoloop was then placed throughout the cystic duct stump. The cystic artery divided and sealed with the Harmonic scissors. The gallbladder was then removed from the liver bed using Harmonic scissors. The gallbladder was then extracted through the epigastric port site. Operative field was checked for any bleeding spots and Harmonic scissors was used to coagulate the liver bed. The abdomen was irrigated. The trocars were removed. The skin was closed using interrupted 3-0 Vicryl suture. Dermabond dressing were applied. The patient tolerated the procedure well.
[2022-07-23] MEDS ORDERED: HYDROmorphone 0.5 MG/0.5 ML SYRINGE IVP ONE (13:38)
[2022-07-23 14:30] LABS: Glucose,Whole Blood 110 mg/dL (70-110)
[2022-07-23] MEDS: SODIUM FERRIC GLUCONAT-SUCROSE 125 MG in SODIUM CHLORIDE 0.9% 100 ML IVPB SCH (15:32)
[2022-07-23] MEDS: LACTATED RINGERS 1,000 ML IV SCH (16:30)
[2022-07-23 16:58] LABS: Glucose,Whole Blood 103 mg/dL (70-110)
[2022-07-23] MEDS: ONDANSETRON 4 MG/2 ML VIAL IVP PRN (17:46)
[2022-07-23 21:11] LABS: Glucose,Whole Blood 90 mg/dL (70-110)
[2022-07-23] MEDS: INSULIN DETEMIR (LEVEMIR) 100 UNIT/ML SYR SQ SCH (21:53)
[2022-07-24] MEDS: SODIUM CHLORIDE 0.9% 1,000 ML IV SCH ×2 (03:28→15:22)
[2022-07-24] MEDS: LEVOTHYROXINE 125 MCG TAB PO SCH (06:46)
[2022-07-24 07:27] LABS: Glucose,Whole Blood 88 mg/dL (70-110)
[2022-07-24] MEDS: INSULIN ASPART (NovoLOG) 100 UNIT/ML VIAL SQ SCH ×4 (07:54→21:28)
[2022-07-24 09:17] LABS: Basophils # (A) 0.03 X 10*3/uL (0.00-0.10); Basophils % (A) 0.4 %; Eosinophils # (A) 0.06 X 10*3/uL (0.04-0.35); Eosinophils % (A) 0.7 %; HCT 26.4 % (39.6-50.0); HGB 8.5 g/dL (13.0-17.0); Immature Grans, Automated 0.5 %; Lymphocytes # (A) 0.76 X 10*3/uL (0.90-5.00); MCH 28.2 pg (27.0-32.0); MCHC 32.2 g/dL (32.0-37.0); MCV 87.7 fL (80.0-97.0); Mean Platelet Volume 10.7 fL (9.5-12.2); Monocytes # (A) 0.83 X 10*3/uL (0.20-1.00); Monocytes % (A) 9.8 %; NRBC Per 100 WBC 0 /100 WBCS (0.0-0.0); Neutrophils # (A) 6.76 X 10*3/uL (1.80-7.70); Neutrophils % (A) 79.6 %; Platelet Count 251 X 10*3/uL (140-440); RBC 3.01 X 10*6/uL (4.40-5.60); RDW 15.4 % (11.5-14.5); WBC 8.48 X 10*3/uL (4.50-10.00)
[2022-07-24 09:26] LABS: Magnesium 1.8 mg/dL (1.5-2.4)
[2022-07-24 09:27] LABS: African American GFR (CKD) 15.2 (60.0-200.0); Albumin 2.6 g/dL (3.8-4.9); Albumin/Globulin Ratio 0.96 (1.60-3.17); BUN/Creat Ratio 12.2 Ratio (12.00-20.00); Blood Urea Nitrogen 53.7 mg/dL (9.0-27.0); Calcium 7.8 mg/dL (8.7-10.3); Globulin 2.7 g/dL (1.6-3.3); Non-African American GFR(CKD) 13.1 (60.0-200.0); Potassium 4.1 mmol/L (3.5-5.5); Total Bilirubin 0.5 mg/dL (0.30-1.20); Total Protein 5.3 g/dL (6.2-8.2)
[2022-07-24] MEDS: METOPROLOL TARTRATE 25 MG TAB PO SCH ×3 (10:07→21:29)
[2022-07-24] MEDS: ASPIRIN 81 MG PO SCH (10:07)
[2022-07-24] MEDS: FOLIC ACID 1 MG TAB PO SCH (10:07)
[2022-07-24] MEDS: SODIUM FERRIC GLUCONAT-SUCROSE 125 MG in SODIUM CHLORIDE 0.9% 100 ML IVPB SCH (10:07)
[2022-07-24] MEDS: PANTOPRAZOLE 40 MG TABLET PO SCH (10:08)
[2022-07-24] MEDS: SODIUM BICARBONATE TAB 650 MG TAB PO SCH ×2 (10:08→21:29)
[2022-07-24] MEDS: FENOFIBRATE 160 MG TAB PO SCH (10:08)
[2022-07-24] MEDS: ATORVASTATIN 40 MG TAB PO SCH (10:08)
[2022-07-24] MEDS: HYDROmorphone 0.5 MG/0.5 ML SYRINGE IVP PRN ×2 (10:15→22:15)
--- NOTE | 2022-07-24 11:12 | P.PN ---
Subjective Patient is seen in follow-up for acute kidney injury. Renal function a little better. Creatinine 4.4 today. Nonoliguric. Oral intake fair. Blood pressure has been stable. On room air. Vital signs are stable. General: Awake. No acute distress. HEENT: Head exam is unremarkable. LUNGS: Breath sounds decreased. HEART: Rate and Rhythm are regular. ABDOMEN: Soft, obese. No significant tenderness. EXTREMITITES: Bilateral [id number] amputations noted. Objective - Vital Signs Vital signs: Vital Signs Temp 98.1 F 07/24/22 07:06 Pulse 72 07/24/22 07:06 Resp 18 07/24/22 07:06 BP 129/52 07/24/22 07:06 Pulse Ox 98 07/24/22 02:02 FiO2 Intake & Output 07/23/22 07/24/22 07/24/22 18:59 06:59 18:59 Intake Total 1000 118 Output Total 460 648 Balance 540 -530 Weight 90.718 kg Intake: IV 1000 Oral 118 Output: Urine 450 200 Post Void Residual 448 Estimated Blood Loss 10 Other: Voiding Method Urinal Urinal # Voids 1 - Labs CBC & Chem 7: 07/24/22 05:45 07/24/22 05:45 Labs: Abnormal Lab Results - Last 24 Hours (Table) 07/24/22 07/24/22 Range/Units 05:45 05:45 RBC 3.01 L (4.40-5.60) X 10*6/uL Hgb 8.5 L (13.0-17.0) g/dL Hct 26.4 L (39.6-50.0) % RDW 15.4 H (11.5-14.5) % Lymphocytes # 0.76 L (0.90-5.00) X 10*3/uL BUN 53.7 H (9.0-27.0) mg/dL Creatinine 4.4 H (0.6-1.5) mg/dL Est GFR (CKD-EPI)AfAm 15.2 L (60.0-200.0) Est GFR (CKD-EPI)NonAf 13.1 L (60.0-200.0) Calcium 7.8 L (8.7-10.3) mg/dL AST 42 H (14-35) U/L Alkaline Phosphatase 210 H (41-126) U/L Total Protein 5.3 L (6.2-8.2) g/dL Albumin 2.6 L (3.8-4.9) g/dL Albumin/Globulin Ratio 0.96 L (1.60-3.17) g/dL Microbiology - Last 24 Hours (Table) 07/18/22 19:49 Blood Culture - Preliminary Blood No Growth after 120 hours 07/18/22 19:56 Blood Culture - Preliminary Blood No Growth after 120 hours Assessment and Plan Plan: Assessment: 1. Acute kidney injury secondary to ATN secondary to hypotension and further worsened with the use of Cozaar and Kerendia. Creatinine was 2 on admission and peaked at 4.92 this admission - 4.4 today. No hydronephrosis noted on CAT scan. Creatinine in February 2021 was as low as 1.0. 2. Hyponatremia secondary to acute kidney injury. Improved. 3. Metabolic acidosis secondary to acute kidney injury. Stable. On oral bicarbonate. 4. Pneumonia maintained on antibiotics. 5. Gallstones with concern for cholecystitis been followed by surgery. Status post cholecystectomy 07/23/2022. 6. Diabetes mellitus. 7. Hypertension with chronic kidney disease. Stable. 8. Anemia. Iron deficiency noted. 9. History of coronary disease status post cardiac stenting and CABG. 10. Rule out chronic disease. Patient does have 1+ proteinuria which is most likely secondary to underlying diabetic kidney disease. 11. Hypomagnesemia from poor intake. Replaced. Improved. Plan: Stopped Cozaar and Kerendia. Maintain IV fluids. Continue to monitor bladder scans to make sure no urinary retention. Avoid nephrotoxins. Continue to monitor renal function and urine output. Maintain IV iron. No urgent need for renal replacement therapy at this time. Continue to assess on daily basis. Patient advised to follow up outpatient upon discharge.
[2022-07-24] MEDS: PIPERACILLIN-TAZOBACTAM 3.375 GM in SODIUM CHLORIDE 0.9% 100 ML IVPB SCH ×2 (11:56→22:16)
[2022-07-24 12:19] LABS: Glucose,Whole Blood 112 mg/dL (70-110)
--- NOTE | 2022-07-24 15:01 | P.PN ---
Subjective Progress Note Date: 07/24/22 CHIEF COMPLAINT: Abdominal pain HISTORY OF PRESENT ILLNESS: Patient postop day #1 status post laparoscopic cholecystectomy. He reports his pain is controlled. Denies any nausea or vomiting. He is having flatus. He reports his last bowel movement was last Saturday. Afebrile. WBC 8.48 Hgb 8.5 platelets 251 sodium is 139 potassium 4.1 creatinine 4.4 which is down from 4.92 Patient seen and examined with Dr. grimes PHYSICAL EXAM: VITAL SIGNS: Reviewed. GENERAL: Well-developed in no acute distress. HEENT: No sclera icterus. Extraocular movements grossly intact. Moist buccal mucosa. Head is atraumatic, normocephalic. ABDOMEN: Soft. Nondistended. NEUROLOGIC: Alert and oriented. Cranial nerves II through XII grossly intact. ASSESSMENT: 1. Cholecystitis status post laparoscopic cholecystectomy 2. Cholelithiasis 3. Right upper quadrant abdominal pain 4. Pneumonia 5. Acute kidney injury 6. Cardiac history including ischemic cardiomyopathy with AICD and prior CABG 7. History of peripheral arterial disease PLAN: -Continue regular diet -Acute kidney injury management per nephrology -Colace added for constipation -Continue antibiotics -DVT prophylaxis subcu heparin and GI prophylaxis Protonix Physician Welding Machine Operator Ultrasonic note has been reviewed by physician. Signing provider agrees with the documented findings, assessment, and plan of care. Objective - Vital Signs Vital signs: Vital Signs Temp 98.1 F 07/24/22 07:06 Pulse 72 07/24/22 07:06 Resp 18 07/24/22 07:06 BP 129/52 07/24/22 07:06 Pulse Ox 98 07/24/22 02:02 FiO2 Intake & Output 07/23/22 07/24/22 07/24/22 18:59 06:59 18:59 Intake Total 1000 118 Output Total 460 648 Balance 540 -530 Weight 90.718 kg Intake: IV 1000 Oral 118 Output: Urine 450 200 Post Void Residual 448 Estimated Blood Loss 10 Other: Voiding Method Urinal Urinal Urinal # Voids 1 - Labs CBC & Chem 7: 07/24/22 05:45 07/24/22 05:45 Labs: Abnormal Lab Results - Last 24 Hours (Table) 07/24/22 07/24/22 07/24/22 Range/Units 05:45 05:45 12:17 RBC 3.01 L (4.40-5.60) X 10*6/uL Hgb 8.5 L (13.0-17.0) g/dL Hct 26.4 L (39.6-50.0) % RDW 15.4 H (11.5-14.5) % Lymphocytes # 0.76 L (0.90-5.00) X 10*3/uL BUN 53.7 H (9.0-27.0) mg/dL Creatinine 4.4 H (0.6-1.5) mg/dL Est GFR (CKD-EPI)AfAm 15.2 L (60.0-200.0) Est GFR (CKD-EPI)NonAf 13.1 L (60.0-200.0) POC Glucose (mg/dL) 112 H (70-110) mg/dL Calcium 7.8 L (8.7-10.3) mg/dL AST 42 H (14-35) U/L Alkaline Phosphatase 210 H (41-126) U/L Total Protein 5.3 L (6.2-8.2) g/dL Albumin 2.6 L (3.8-4.9) g/dL Albumin/Globulin Ratio 0.96 L (1.60-3.17) g/dL Microbiology - Last 24 Hours (Table) 07/18/22 19:49 Blood Culture - Preliminary Blood No Growth after 120 hours 07/18/22 19:56 Blood Culture - Preliminary Blood No Growth after 120 hours
[2022-07-24] MEDS: LACTATED RINGERS 1,000 ML IV SCH (16:57)
[2022-07-24 17:18] LABS: Glucose,Whole Blood 151 mg/dL (70-110)
[2022-07-24] MEDS: TAMSULOSIN 0.4 MG CAP.ER.24H PO SCH (18:54)
[2022-07-24 19:29] LABS: Glucose,Whole Blood 181 mg/dL (70-110)
[2022-07-24 21:26] LABS: Glucose,Whole Blood 177 mg/dL (70-110)
[2022-07-24] MEDS: HEPARIN SODIUM,PORCINE/PF 5,000 UNIT/0.5 ML SYRINGE SQ SCH (21:26)
[2022-07-24] MEDS: INSULIN DETEMIR (LEVEMIR) 100 UNIT/ML SYR SQ SCH (21:26)
[2022-07-24] MEDS: DOCUSATE 100 MG CAP PO SCH (21:29)
[2022-07-24] MEDS: ONDANSETRON 4 MG/2 ML VIAL IVP PRN (22:15)
--- NOTE | 2022-07-25 00:25 | PN ---
PROGRESS NOTE SUBJECTIVE: A 66-year-old white male, status post cholecystectomy. BUN and creatinine are increased. Increase normal saline in the next 24 hours. Monitor BUN and creatinine level. Sugars in the mid 100s. Advance diet as tolerated. OBJECTIVE: CARDIOVASCULAR: S1, S2. LUNGS: Clear. GI: Soft. HEMATOLOGY: Negative Homans. ASSESSMENT: Acute tubular necrosis, acute on chronic renal insufficiency, status post cholecystectomy. Continue with rehydration. Check lytes, BUN and creatinine in the morning. Wound Care to the left distal stump. Continue current treatments, home medicines. Prognosis guarded. MMODL / IJN: [id number] /
[2022-07-25] MEDS: SODIUM CHLORIDE 0.9% 1,000 ML IV SCH (02:55)
[2022-07-25 05:56] LABS: Glucose,Whole Blood 141 mg/dL (70-110)
[2022-07-25] MEDS: INSULIN ASPART (NovoLOG) 100 UNIT/ML VIAL SQ SCH ×4 (06:26→21:23)
[2022-07-25] MEDS: LEVOTHYROXINE 125 MCG TAB PO SCH (06:27)
[2022-07-25 06:58] LABS: Glucose,Whole Blood 139 mg/dL (70-110)
[2022-07-25 09:02] LABS: Basophils # (A) 0.04 X 10*3/uL (0.00-0.10); Basophils % (A) 0.4 %; Eosinophils # (A) 0.39 X 10*3/uL (0.04-0.35); HCT 24.7 % (39.6-50.0); HGB 7.6 g/dL (13.0-17.0); Immature Grans, Automated 1.2 %; Lymphocytes # (A) 0.88 X 10*3/uL (0.90-5.00); MCH 27.8 pg (27.0-32.0); MCHC 30.8 g/dL (32.0-37.0); MCV 90.5 fL (80.0-97.0); Mean Platelet Volume 10.7 fL (9.5-12.2); Monocytes # (A) 0.96 X 10*3/uL (0.20-1.00); Monocytes % (A) 9.8 %; NRBC Per 100 WBC 0 /100 WBCS (0.0-0.0); Neutrophils # (A) 7.44 X 10*3/uL (1.80-7.70); Neutrophils % (A) 75.6 %; Platelet Count 246 X 10*3/uL (140-440); RBC 2.73 X 10*6/uL (4.40-5.60); RDW 15.7 % (11.5-14.5); WBC 9.83 X 10*3/uL (4.50-10.00)
[2022-07-25 09:18] LABS: Magnesium 1.9 mg/dL (1.5-2.4)
[2022-07-25] MEDS: HEPARIN SODIUM,PORCINE/PF 5,000 UNIT/0.5 ML SYRINGE SQ SCH ×2 (09:29→21:28)
[2022-07-25] MEDS: FUROSEMIDE 10 MG/ML 2 ML VIAL IV SCH (09:29)
[2022-07-25] MEDS: HYDROmorphone 0.5 MG/0.5 ML SYRINGE IVP PRN (09:29)
[2022-07-25] MEDS: ASPIRIN 81 MG PO SCH (09:30)
[2022-07-25] MEDS: ATORVASTATIN 40 MG TAB PO SCH (09:30)
[2022-07-25] MEDS: FENOFIBRATE 160 MG TAB PO SCH (09:30)
[2022-07-25] MEDS: SODIUM BICARBONATE TAB 650 MG TAB PO SCH ×2 (09:30→21:28)
[2022-07-25] MEDS: PANTOPRAZOLE 40 MG TABLET PO SCH (09:30)
[2022-07-25] MEDS: DOCUSATE 100 MG CAP PO SCH ×2 (09:30→21:28)
[2022-07-25] MEDS: FOLIC ACID 1 MG TAB PO SCH (09:30)
[2022-07-25] MEDS: SODIUM FERRIC GLUCONAT-SUCROSE 125 MG in SODIUM CHLORIDE 0.9% 100 ML IVPB SCH (09:30)
[2022-07-25] MEDS: METOPROLOL TARTRATE 25 MG TAB PO SCH ×3 (09:30→21:28)
[2022-07-25 09:37] LABS: African American GFR (CKD) 13.7 (60.0-200.0); Albumin 2.4 g/dL (3.8-4.9); Albumin/Globulin Ratio 0.89 (1.60-3.17); Anion Gap 14.2 mmol/L (10.00-18.00); BUN/Creat Ratio 11.9 Ratio (12.00-20.00); Blood Urea Nitrogen 57.1 mg/dL (9.0-27.0); Calcium 7.8 mg/dL (8.7-10.3); Carbon Dioxide 20.8 mmol/L (20.0-27.5); Globulin 2.7 g/dL (1.6-3.3); Non-African American GFR(CKD) 11.8 (60.0-200.0); Potassium 4.1 mmol/L (3.5-5.5); Total Bilirubin 0.4 mg/dL (0.30-1.20); Total Protein 5.1 g/dL (6.2-8.2)
--- NOTE | 2022-07-25 10:03 | P.PN ---
Subjective Patient is seen in follow-up for acute kidney injury. Renal function worse again today. Creatinine 4.8 today. Has Armenta catheter for urinary retention. Nonoliguric. Oral intake fair. Blood pressure has been stable. On 2 L nasal cannula. Vital signs stable. General: Awake. No acute distress. HEENT: Head exam is unremarkable. LUNGS: Breath sounds decreased. HEART: Rate and Rhythm are regular. ABDOMEN: Soft, obese. No significant tenderness. EXTREMITITES: Bilateral [id number] amputations noted. Objective - Vital Signs Vital signs: Vital Signs Temp 98.0 F 07/25/22 07:05 Pulse 70 07/25/22 07:05 Resp 19 07/25/22 07:05 BP 123/70 07/25/22 07:05 Pulse Ox 96 07/25/22 07:05 FiO2 Intake & Output 07/24/22 07/25/22 07/25/22 18:59 06:59 18:59 Intake Total 358 250 Output Total 2142 Balance -1784 250 Intake: Oral 358 250 Output: Urine 1045 Straight 625 Post Void Residual 1097 Other: Voiding Method Urinal Indwelling Catheter # Bowel Movements 0 - Labs CBC & Chem 7: 07/25/22 05:02 07/25/22 05:02 Labs: Abnormal Lab Results - Last 24 Hours (Table) 07/24/22 07/24/22 07/24/22 Range/Units 12:17 17:16 19:28 RBC (4.40-5.60) X 10*6/uL Hgb (13.0-17.0) g/dL Hct (39.6-50.0) % MCHC (32.0-37.0) g/dL RDW (11.5-14.5) % Immature Gran # (0.00-0.04) X 10*3/uL Lymphocytes # (0.90-5.00) X 10*3/uL Eosinophils # (0.04-0.35) X 10*3/uL BUN (9.0-27.0) mg/dL Creatinine (0.6-1.5) mg/dL Est GFR (CKD-EPI)AfAm (60.0-200.0) Est GFR (CKD-EPI)NonAf (60.0-200.0) BUN/Creatinine Ratio (12.00-20.00) Ratio Glucose (70-110) mg/dL POC Glucose (mg/dL) 112 H 151 H 181 H (70-110) mg/dL Calcium (8.7-10.3) mg/dL Alkaline Phosphatase (41-126) U/L Total Protein (6.2-8.2) g/dL Albumin (3.8-4.9) g/dL Albumin/Globulin Ratio (1.60-3.17) g/dL 07/24/22 07/25/22 07/25/22 Range/Units 21:25 05:02 05:02 RBC 2.73 L (4.40-5.60) X 10*6/uL Hgb 7.6 L (13.0-17.0) g/dL Hct 24.7 L (39.6-50.0) % MCHC 30.8 L (32.0-37.0) g/dL RDW 15.7 H (11.5-14.5) % Immature Gran # 0.12 H (0.00-0.04) X 10*3/uL Lymphocytes # 0.88 L (0.90-5.00) X 10*3/uL Eosinophils # 0.39 H (0.04-0.35) X 10*3/uL BUN 57.1 H (9.0-27.0) mg/dL Creatinine 4.8 H (0.6-1.5) mg/dL Est GFR (CKD-EPI)AfAm 13.7 L (60.0-200.0) Est GFR (CKD-EPI)NonAf 11.8 L (60.0-200.0) BUN/Creatinine Ratio 11.90 L (12.00-20.00) Ratio Glucose 135 H (70-110) mg/dL POC Glucose (mg/dL) 177 H (70-110) mg/dL Calcium 7.8 L (8.7-10.3) mg/dL Alkaline Phosphatase 210 H (41-126) U/L Total Protein 5.1 L (6.2-8.2) g/dL Albumin 2.4 L (3.8-4.9) g/dL Albumin/Globulin Ratio 0.89 L (1.60-3.17) g/dL 07/25/22 07/25/22 Range/Units 05:55 06:53 RBC (4.40-5.60) X 10*6/uL Hgb (13.0-17.0) g/dL Hct (39.6-50.0) % MCHC (32.0-37.0) g/dL RDW (11.5-14.5) % Immature Gran # (0.00-0.04) X 10*3/uL Lymphocytes # (0.90-5.00) X 10*3/uL Eosinophils # (0.04-0.35) X 10*3/uL BUN (9.0-27.0) mg/dL Creatinine (0.6-1.5) mg/dL Est GFR (CKD-EPI)AfAm (60.0-200.0) Est GFR (CKD-EPI)NonAf (60.0-200.0) BUN/Creatinine Ratio (12.00-20.00) Ratio Glucose (70-110) mg/dL POC Glucose (mg/dL) 141 H 139 H (70-110) mg/dL Calcium (8.7-10.3) mg/dL Alkaline Phosphatase (41-126) U/L Total Protein (6.2-8.2) g/dL Albumin (3.8-4.9) g/dL Albumin/Globulin Ratio (1.60-3.17) g/dL Microbiology - Last 24 Hours (Table) 07/18/22 19:49 Blood Culture - Final Blood No Growth after 144 hours 07/18/22 19:56 Blood Culture - Final Blood No Growth after 144 hours Assessment and Plan Plan: Assessment: 1. Acute kidney injury secondary to ATN secondary to hypotension and further worsened with the use of Cozaar and Kerendia. Creatinine was 2 on admission and peaked at 4.92 this admission - 4.8 today. No hydronephrosis noted on CAT scan. Creatinine in February 2021 was as low as 1.0. 2. Hyponatremia secondary to acute kidney injury. Improved. 3. Metabolic acidosis secondary to acute kidney injury and IV fluids. On oral bicarbonate. 4. Pneumonia maintained on antibiotics. 5. Gallstones with concern for cholecystitis been followed by surgery. Status post cholecystectomy 07/23/2022. 6. Diabetes mellitus. 7. Hypertension with chronic kidney disease. Stable. 8. Anemia. Iron deficiency noted. 9. History of coronary disease status post cardiac stenting and CABG. 10. Rule out chronic disease. Patient does have 1+ proteinuria which is most likely secondary to underlying diabetic kidney disease. 11. Hypomagnesemia from poor intake. Replaced. Improved. 12. Urinary retention. Armenta catheter placed. On Flomax. Plan: Stopped Cozaar and Kerendia. Hep-Lock IV fluids. Encourage oral intake. Started on IV Lasix by primary team this morning. Check chest x-ray. Avoid nephrotoxins. Continue to monitor renal function and urine output. Maintain IV iron. Add Aranesp. No urgent need for renal replacement therapy at this time. Continue to assess on daily basis. Patient advised to follow up outpatient upon discharge.
[2022-07-25] MEDS: polyethylene glycoL 3350 17 GM POWD.PACK PO SCH (11:51)
[2022-07-25] MEDS: PIPERACILLIN-TAZOBACTAM 3.375 GM in SODIUM CHLORIDE 0.9% 100 ML IVPB SCH ×2 (11:51→23:44)
[2022-07-25] MEDS: DARBEPOETIN ALFA 40 MCG/0.4 ML SYRINGE SQ SCH (11:52)
[2022-07-25 12:00] LABS: Glucose,Whole Blood 201 mg/dL (70-110)
--- NOTE | 2022-07-25 12:13 | XR ---
EXAMINATION TYPE: XR chest 1V DATE OF EXAM: 07/25/2022 COMPARISON: Chest x-ray 07/18/2022 HISTORY: Shortness of breath TECHNIQUE: Single frontal view of the chest is obtained. FINDINGS: Patient is post median sternotomy. Generator in left pectoral region, leads in the right a trium, right ventricle and coronary sinus are again noted. Heart is likely enlarged. Lung volumes are low. No evident pneumothorax. Prominence the central vascularity and interstitium, patchy density pr esent at the lung bases. IMPRESSION: Expiratory exam, basilar atelectasis versus pneumonia, difficult to exclude congestive h eart failure. Follow-up is recommended.
--- NOTE | 2022-07-25 13:00 | P.PN ---
Subjective Progress Note Date: 07/24/22 Principal diagnosis: Left lower lobe community-acquired pneumonia, on Rocephin we'll continue Acute kidney disease, transient renal function and monitor electrolytes closely Coronary artery disease ischemic cardiomyopathy, continuation of home medications Diabetes mellitus uncontrolled with hyperglycemia continue sliding scale insulin and home medications 07/24/2022, patient seen and evaluated examined postop day #1 of laparoscopic cholecystectomy by Dr. Rodgers is overall doing well, passing gas from below, respirations stable, denies any chest pain, pleuritic chest pain noted previously have improved though, 07/22/2022, patient breathing K more comfortably, still have intermittent cough and sputum production, no night sweats fever or chills present, abdominal pain appears to be slightly better, patient has been evaluated by nephrology for acute tubular necrosis thought to be related to hypertension with concomitant use of Cozaar currently to 4.6 now R inhibitor and hold and patient has been gently rehydrated, patient has been on Zosyn for pneumonia as well as the acute cholecystitis being planned for surgery early next week 07/21/2022, patient seen eval reexamined during the rounds labs reviewed medications reviewed care plan discussed, respiratory status continued to improve however still cough congestion and yellowish sputum production is present, blood cultures no growth, patient remains on broad-spectrum antibiotic for left lower lobe pneumonia patient has a component of pleuritic chest pain, responded well with pain medicine, patient has been evaluated by surgical services for cholecystitis, patient is scheduled for cholecystectomy early next week 07/20/2022, patient seen and evaluated examined, cough congestion slightly improved still however producing greenish sputum, sputum cultures are pending however blood cultures have been negative so far. Patient is status post HIDA scan that will not visualized likely related to cystic-type obstruction or cholecystitis, general surgery have been consulted to labs from today reviewed white cell count is 14.74, hemoglobin and hematocrit 8.9/27, BUN/creatinine 45.9/2.5 blood sugar mostly higher than 300 range Patient is a 66-year-old female came into the hospital with a developing right upper quadrant pain along with nausea and vomiting started 1 day prior to coming to the hospital, ongoing intermittent diarrhea present as well, denies any fever or chills so throat has some problems with cough and shortness of breath as well. Her past medical history significant for diabetes dyslipidemia hypertension hypertensive cardiovascular disease hypothyroidism, chronic neuropathy and leg edema, status post AICD, coronary artery disease status post CABG 3 and placement for ischemic cardiomyopathy with AICD, status post left BKA, labs reviewed CBC within normal limit BUN/creatinine 48/2.01 blood sugar is 340. Computed tomography scan of the chest positive for left lower lobe conso lidation along with trace pleural effusion consistent with pneumonia evidence of cholelithiasis seen as well. Currently patient is on IV Rocephin along with continuation of home medications Objective - Vital Signs Vital signs: Vital Signs Temp 98.1 F 07/24/22 07:06 Pulse 72 07/24/22 07:06 Resp 18 07/24/22 07:06 BP 129/52 07/24/22 07:06 Pulse Ox 98 07/24/22 02:02 FiO2 Intake & Output 07/23/22 07/24/22 07/24/22 18:59 06:59 18:59 Intake Total 1000 118 Output Total 460 648 Balance 540 -530 Weight 90.718 kg Intake: IV 1000 Oral 118 Output: Urine 450 200 Post Void Residual 448 Estimated Blood Loss 10 Other: Voiding Method Urinal Urinal Urinal # Voids 1 - Exam - Constitutional General appearance: average body habitus, disheveled - EENT Eyes: EOMI, PERRLA ENT: normal oropharynx Ears: bilateral: normal - Neck Carotids: bilateral: upstroke normal Thyroid: bilateral: normal size - Respiratory Respiratory: bilateral: CTA - Cardiovascular Rhythm: regular Heart sounds: normal: S1, S2 - Gastrointestinal General gastrointestinal: decreased bowel sounds, soft - Integumentary Integumentary: normal turgor - Neurologic Neurologic: CNII-XII intact - Musculoskeletal Musculoskeletal: generalized weakness, strength equal bilaterally - Psychiatric Psychiatric: A&O x's 3, appropriate affect, intact judgment & insight - Labs CBC & Chem 7: 07/25/22 05:02 07/25/22 05:02 Labs: Abnormal Lab Results - Last 24 Hours (Table) 07/24/22 07/24/22 07/24/22 Range/Units 05:45 05:45 12:17 RBC 3.01 L (4.40-5.60) X 10*6/uL Hgb 8.5 L (13.0-17.0) g/dL Hct 26.4 L (39.6-50.0) % RDW 15.4 H (11.5-14.5) % Lymphocytes # 0.76 L (0.90-5.00) X 10*3/uL BUN 53.7 H (9.0-27.0) mg/dL Creatinine 4.4 H (0.6-1.5) mg/dL Est GFR (CKD-EPI)AfAm 15.2 L (60.0-200.0) Est GFR (CKD-EPI)NonAf 13.1 L (60.0-200.0) POC Glucose (mg/dL) 112 H (70-110) mg/dL Calcium 7.8 L (8.7-10.3) mg/dL AST 42 H (14-35) U/L Alkaline Phosphatase 210 H (41-126) U/L Total Protein 5.3 L (6.2-8.2) g/dL Albumin 2.6 L (3.8-4.9) g/dL Albumin/Globulin Ratio 0.96 L (1.60-3.17) g/dL Microbiology - Last 24 Hours (Table) 07/18/22 19:49 Blood Culture - Preliminary Blood No Growth after 120 hours 07/18/22 19:56 Blood Culture - Preliminary Blood No Growth after 120 hours Assessment and Plan Assessment: Left lower lobe community-acquired pneumonia, on Zosyn we'll continue Acute cholecystitis, surgery on consult, status post cholecystectomy laparoscopy postop day #1 doing well Acute kidney disease, with worsening of renal functions, nephrology is following Anitra as well as No on hold, renal functions stable Coronary artery disease ischemic cardiomyopathy, continuation of home medications Diabetes mellitus uncontrolled with hyperglycemia continue sliding scale insulin and home medications Plan: As above Time with Patient: Greater than 30
--- NOTE | 2022-07-25 13:03 | P.PN ---
Subjective Progress Note Date: 07/25/22 Principal diagnosis: Left lower lobe community-acquired pneumonia, on Rocephin we'll continue Acute kidney disease, transient renal function and monitor electrolytes closely Coronary artery disease ischemic cardiomyopathy, continuation of home medications Diabetes mellitus uncontrolled with hyperglycemia continue sliding scale insulin and home medications 07/25/2022, patient seen eval examined during the rounds labs reviewed medications reviewed, chest x-ray performed today reviewed him a bibasilar atelectasis along with possible pneumonia present, patient afebrile hemo dynamically stable oxygen saturation is 96% on 2 L. Labs reviewed hemoglobin and hematocrit 7.6/24.7, BUN/creatinine 57/4.8 07/24/2022, patient seen and evaluated examined postop day #1 of laparoscopic cholecystectomy by Dr. Rodgers is overall doing well, passing gas from below, respirations stable, denies any chest pain, pleuritic chest pain noted previously have improved though, 07/22/2022, patient breathing K more comfortably, still have intermittent cough and sputum production, no night sweats fever or chills present, abdominal pain appears to be slightly better, patient has been evaluated by nephrology for acute tubular necrosis thought to be related to hypertension with concomitant use of Cozaar currently to 4.6 now R inhibitor and hold and patient has been gently rehydrated, patient has been on Zosyn for pneumonia as well as the acute cholecystitis being planned for surgery early next week 07/21/2022, patient seen eval reexamined during the rounds labs reviewed medications reviewed care plan discussed, respiratory status continued to improve however still cough congestion and yellowish sputum production is present, blood cultures no growth, patient remains on broad-spectrum antibiotic for left lower lobe pneumonia patient has a component of pleuritic chest pain, responded well with pain medicine, patient has been evaluated by surgical services for cholecystitis, patient is scheduled for cholecystectomy early next week 07/20/2022, patient seen and evaluated examined, cough congestion slightly improved still however producing greenish sputum, sputum cultures are pending however blood cultures have been negative so far. Patient is status post HIDA scan that will not visualized likely related to cystic-type obstruction or cholecystitis, general surgery have been consulted to labs from today reviewed white cell count is 14.74, hemoglobin and hematocrit 8.9/27, BUN/creatinine 45.9/2.5 blood sugar mostly higher than 300 range Patient is a 66-year-old female came into the hospital with a developing right upper quadrant pain along with nausea and vomiting started 1 day prior to coming to the hospital, ongoing intermittent diarrhea present as well, denies any fever or chills so throat has some problems with cough and shortness of breath as well. Her past medical history significant for diabetes dyslipidemia hypertension hypertensive cardiovascular disease hypothyroidism, chronic neuropathy and leg edema, status post AICD, coronary artery disease status post CABG 3 and placement for ischemic cardiomyopathy with AICD, status post left BKA, labs reviewed CBC within normal limit BUN/creatinine 48/2.01 blood sugar is 340. Computed tomography scan of the chest positive for left lower lobe consolidation along with trace pleural effusion consistent with pneumonia evidence of cholelithiasis seen as well. Currently patient is on IV Rocephin along with continuation of home medications Objective - Vital Signs Vital signs: Vital Signs Temp 98.0 F 07/25/22 07:05 Pulse 70 07/25/22 07:05 Resp 19 07/25/22 07:05 BP 123/70 07/25/22 07:05 Pulse Ox 96 07/25/22 07:05 FiO2 Intake & Output 07/24/22 07/25/22 07/25/22 18:59 06:59 18:59 Intake Total 358 250 118 Output Total 2142 Balance -1784 250 118 Intake: Oral 358 250 118 Output: Urine 1045 Straight 625 Post Void Residual 1097 Other: Voiding Method Urinal Indwelling Catheter Indwelling Catheter # Bowel Movements 0 - Exam - Constitutional General appearance: average body habitus, disheveled - EENT Eyes: EOMI, PERRLA ENT: normal oropharynx Ears: bilateral: normal - Neck Carotids: bilateral: upstroke normal Thyroid: bilateral: normal size - Respiratory Respiratory: bilateral: CTA - Cardiovascular Rhythm: regular Heart sounds: normal: S1, S2 - Gastrointestinal General gastrointestinal: decreased bowel sounds, soft - Integumentary Integumentary: normal turgor - Neurologic Neurologic: CNII-XII intact - Musculoskeletal Musculoskeletal: generalized weakness, strength equal bilaterally - Psychiatric Psychiatric: A&O x's 3, appropriate affect, intact judgment & insight - Labs CBC & Chem 7: 07/25/22 05:02 07/25/22 05:02 Labs: Abnormal Lab Results - Last 24 Hours (Table) 07/24/22 07/24/2222 Range/Units 17:16 19:28 21:25 RBC (4.40-5.60) X 10*6/uL Hgb (13.0-17.0) g/dL Hct (39.6-50.0) % MCHC (32.0-37.0) g/dL RDW (11.5-14.5) % Immature Gran # (0.00-0.04) X 10*3/uL Lymphocytes # (0.90-5.00) X 10*3/uL Eosinophils # (0.04-0.35) X 10*3/uL BUN (9.0-27.0) mg/dL Creatinine (0.6-1.5) mg/dL Est GFR (CKD-EPI)AfAm (60.0-200.0) Est GFR (CKD-EPI)NonAf (60.0-200.0) BUN/Creatinine Ratio (12.00-20.00) Ratio Glucose (70-110) mg/dL POC Glucose (mg/dL) 151 H 181 H 177 H (70-110) mg/dL Calcium (8.7-10.3) mg/dL Alkaline Phosphatase (41-126) U/L Total Protein (6.2-8.2) g/dL Albumin (3.8-4.9) g/dL Albumin/Globulin Ratio (1.60-3.17) g/dL 07/25/22 07/25/22 07/25/22 Range/Units 05:02 05:02 05:55 RBC 2.73 L (4.40-5.60) X 10*6/uL Hgb 7.6 L (13.0-17.0) g/dL Hct 24.7 L (39.6-50.0) % MCHC 30.8 L (32.0-37.0) g/dL RDW 15.7 H (11.5-14.5) % Immature Gran # 0.12 H (0.00-0.04) X 10*3/uL Lymphocytes # 0.88 L (0.90-5.00) X 10*3/uL Eosinophils # 0.39 H (0.04-0.35) X 10*3/uL BUN 57.1 H (9.0-27.0) mg/dL Creatinine 4.8 H (0.6-1.5) mg/dL Est GFR (CKD-EPI)AfAm 13.7 L (60.0-200.0) Est GFR (CKD-EPI)NonAf 11.8 L (60.0-200.0) BUN/Creatinine Ratio 11.90 L (12.00-20.00) Ratio Glucose 135 H (70-110) mg/dL POC Glucose (mg/dL) 141 H (70-110) mg/dL Calcium 7.8 L (8.7-10.3) mg/dL Alkaline Phosphatase 210 H (41-126) U/L Total Protein 5.1 L (6.2-8.2) g/dL Albumin 2.4 L (3.8-4.9) g/dL Albumin/Globulin Ratio 0.89 L (1.60-3.17) g/dL 07/25/22 07/25/22 Range/Units 06:53 11:59 RBC (4.40-5.60) X 10*6/uL Hgb (13.0-17.0) g/dL Hct (39.6-50.0) % MCHC (32.0-37.0) g/dL RDW (11.5-14.5) % Immature Gran # (0.00-0.04) X 10*3/uL Lymphocytes # (0.90-5.00) X 10*3/uL Eosinophils # (0.04-0.35) X 10*3/uL BUN (9.0-27.0) mg/dL Creatinine (0.6-1.5) mg/dL Est GFR (CKD-EPI)AfAm (60.0-200.0) Est GFR (CKD-EPI)NonAf (60.0-200.0) BUN/Creatinine Ratio (12.00-20.00) Ratio Glucose (70-110) mg/dL POC Glucose (mg/dL) 139 H 201 H (70-110) mg/dL Calcium (8.7-10.3) mg/dL Alkaline Phosphatase (41-126) U/L Total Protein (6.2-8.2) g/dL Albumin (3.8-4.9) g/dL Albumin/Globulin Ratio (1.60-3.17) g/dL Microbiology - Last 24 Hours (Table) 07/18/22 19:49 Blood Culture - Final Blood No Growth after 144 hours 07/18/22 19:56 Blood Culture - Final Blood No Growth after 144 hours Assessment and Plan Assessment: Left lower lobe community-acquired pneumonia, on Zosyn we'll continue Acute cholecystitis, surgery on consult, status post cholecystectomy laparoscopy postop day #1 doing well Acute kidney disease, with worsening of renal functions, nephrology is following Anitra as well as No on hold, renal functions steadily getting worse Coronary artery disease ischemic cardiomyopathy, continuation of home medications Diabetes mellitus uncontrolled with hyperglycemia continue sliding scale insulin and home medications Plan: As above Time with Patient: Greater than 30
--- NOTE | 2022-07-25 13:49 | P.PN ---
Subjective Progress Note Date: 07/25/22 CHIEF COMPLAINT: Abdominal pain HISTORY OF PRESENT ILLNESS: Patient postop day #2 status post laparoscopic cholecystectomy. He reports his pain is controlled. Denies any nausea or vomiting. He is having flatus. Patient did have a very tiny BM. He still feels constipated. Afebrile. Chest x-ray showing basilar atelectasis versus pneumonia. Difficult to exclude CHF. IV Lasix started by medicine service this morning. Urology consulted for urinary retention. Afebrile. Cr up at 4.8 WBC 9.83 Hgb 7.6 pathology report shows gangrenous gallbladder acute cholecystitis with gallstones Patient seen and examined with Dr. grimes PHYSICAL EXAM: VITAL SIGNS: Reviewed. GENERAL: Well-developed in no acute distress. HEENT: No sclera icterus. Extraocular movements grossly intact. Moist buccal mucosa. Head is atraumatic, normocephalic. ABDOMEN: Soft. Nondistended. NEUROLOGIC: Alert and oriented. Cranial nerves II through XII grossly intact. ASSESSMENT: 1. Cholecystitis status post laparoscopic cholecystectomy 2. Cholelithiasis 3. Right upper quadrant abdominal pain 4. Pneumonia 5. Acute kidney injury followed by nephrology 6. Cardiac history including ischemic cardiomyopathy with AICD and prior CABG 7. History of peripheral arterial disease 9. Constipation PLAN: -Continue regular diet -Acute kidney injury management per nephrology -Miralax added for constipation -Continue antibiotics -DVT prophylaxis subcu heparin and GI prophylaxis Protonix Physician Material Controller note has been reviewed by physician. Signing provider agrees with the documented findings, assessment, and plan of care. Objective - Vital Signs Vital signs: Vital Signs Temp 98.0 F 07/25/22 07:05 Pulse 70 07/25/22 07:05 Resp 19 07/25/22 07:05 BP 123/70 07/25/22 07:05 Pulse Ox 96 07/25/22 07:05 FiO2 Intake & Output 07/24/22 07/25/22 07/25/22 18:59 06:59 18:59 Intake Total 358 250 118 Output Total 2142 Balance -1784 250 118 Intake: Oral 358 250 118 Output: Urine 1045 Straight 625 Post Void Residual 1097 Other: Voiding Method Urinal Indwelling Catheter Indwelling Catheter # Bowel Movements 0 - Labs CBC & Chem 7: 07/25/22 05:02 07/25/22 05:02 Labs: Abnormal Lab Results - Last 24 Hours (Table) 07/24/22 07/24/22 07/24/22 Range/Units 17:16 19:28 21:25 RBC (4.40-5.60) X 10*6/uL Hgb (13.0-17.0) g/dL Hct (39.6-50.0) % MCHC (32.0-37.0) g/dL RDW (11.5-14.5) % Immature Gran # (0.00-0.04) X 10*3/uL Lymphocytes # (0.90-5.00) X 10*3/uL Eosinophils # (0.04-0.35) X 10*3/uL BUN (9.0-27.0) mg/dL Creatinine (0.6-1.5) mg/dL Est GFR (CKD-EPI)AfAm (60.0-200.0) Est GFR (CKD-EPI)NonAf (60.0-200.0) BUN/Creatinine Ratio (12.00-20.00) Ratio Glucose (70-110) mg/dL POC Glucose (mg/dL) 151 H 181 H 177 H (70-110) mg/dL Calcium (8.7-10.3) mg/dL Alkaline Phosphatase (41-126) U/L Total Protein (6.2-8.2) g/dL Albumin (3.8-4.9) g/dL Albumin/Globulin Ratio (1.60-3.17) g/dL 07/25/22 07/25/22 07/25/22 Range/Units 05:02 05:02 05:55 RBC 2.73 L (4.40-5.60) X 10*6/uL Hgb 7.6 L (13.0-17.0) g/dL Hct 24.7 L (39.6-50.0) % MCHC 30.8 L (32.0-37.0) g/dL RDW 15.7 H (11.5-14.5) % Immature Gran # 0.12 H (0.00-0.04) X 10*3/uL Lymphocytes # 0.88 L (0.90-5.00) X 10*3/uL Eosinophils # 0.39 H (0.04-0.35) X 10*3/uL BUN 57.1 H (9.0-27.0) mg/dL Creatinine 4.8 H (0.6-1.5) mg/dL Est GFR (CKD-EPI)AfAm 13.7 L (60.0-200.0) Est GFR (CKD-EPI)NonAf 11.8 L (60.0-200.0) BUN/Creatinine Ratio 11.90 L (12.00-20.00) Ratio Glucose 135 H (70-110) mg/dL POC Glucose (mg/dL) 141 H (70-110) mg/dL Calcium 7.8 L (8.7-10.3) mg/dL Alkaline Phosphatase 210 H (41-126) U/L Total Protein 5.1 L (6.2-8.2) g/dL Albumin 2.4 L (3.8-4.9) g/dL Albumin/Globulin Ratio 0.89 L (1.60-3.17) g/dL 07/25/22 07/25/22 Range/Units 06:53 11:59 RBC (4.40-5.60) X 10*6/uL Hgb (13.0-17.0) g/dL Hct (39.6-50.0) % MCHC (32.0-37.0) g/dL RDW (11.5-14.5) % Immature Gran # (0.00-0.04) X 10*3/uL Lymphocytes # (0.90-5.00) X 10*3/uL Eosinophils # (0.04-0.35) X 10*3/uL BUN (9.0-27.0) mg/dL Creatinine (0.6-1.5) mg/dL Est GFR (CKD-EPI)AfAm (60.0-200.0) Est GFR (CKD-EPI)NonAf (60.0-200.0) BUN/Creatinine Ratio (12.00-20.00) Ratio Glucose (70-110) mg/dL POC Glucose (mg/dL) 139 H 201 H (70-110) mg/dL Calcium (8.7-10.3) mg/dL Alkaline Phosphatase (41-126) U/L Total Protein (6.2-8.2) g/dL Albumin (3.8-4.9) g/dL Albumin/Globulin Ratio (1.60-3.17) g/dL Microbiology - Last 24 Hours (Table) 07/18/22 19:49 Blood Culture - Final Blood No Growth after 144 hours 07/18/22 19:56 Blood Culture - Final Blood No Growth after 144 hours
[2022-07-25] MEDS ORDERED: bisacodyL 10 MG SUPP RECTAL STA (15:08)
--- NOTE | 2022-07-25 15:50 | P.GSCN ---
History of Present Illness Consult date: 07/25/22 Reason for Consult: Urinary Retention Requesting physician: Javier Vo History of present illness: Patient is a 66-year-old male came into the hospital with a developing right upper quadrant pain along with nausea and vomiting started 1 day prior to coming to the hospital, ongoing intermittent diarrhea present as well, denies any fever or chills so throat has some problems with cough and shortness of breath as w ell. His past medical history significant for diabetes dyslipidemia hypertension hypertensive cardiovascular disease hypothyroidism, chronic neuropathy and leg edema, status post AICD, coronary artery disease status post CABG 3 and placement for ischemic cardiomyopathy with AICD, status post left BKA. CT scan of the chest positive for left lower lobe consolidation along with trace pleural effusion consistent with pneumonia evidence of cholelithiasis seen as well. Gallbladder ultrasound revealed acute cholecystitis, status post laparoscopic cholecystectomy on 07/23/22. Pulmonary following for LLL CAP, currently on Zosyn. Nephrology following for DORIAN. Patient with worsening renal function. Review of Systems - Constitutional Reports fatigue, Reports poor appetite - Cardiovascular Reports shortness of breath, Denies chest pain - Gastrointestinal Reports constipation, Reports loss of appetite, Denies nausea, Denies vomiting - Genitourinary Denies flank pain, Denies hematuria Past Medical History Past Medical History: Heart Failure, Diabetes Mellitus, Diabetes Mellitus, Eye Disorder, GERD/Reflux, Hearing Disorder / Deafness, Hyperlipidemia, Hypertension, Myocardial Infarction (AL), Osteoarthritis (OA), Renal Disease, Skin Disorder, Thyroid Disorder Additional Past Medical History / Comment(s): IDDM type II, neuropathy bilateral hands/forearms/lower legs/feet, WCC pt, bilateral leg edema, [place]. wounds right foot w/wound vac, ischemic cardiomyopathy/AICD, vtach, past medical record documents paroxysmal Afib/pt does not recall this, bilateral lower leg inte rmittent claudication/PAD, chronic renal disease stage III, anemia-transfusion in December per pt., bilateral tinnitis/HUSLIA, hypothyroidchronic renal disease stage III, anemia, bilateral tinnitis/HUSLIA, hypothyroid, arthritis bilateral hands with R hand worse, Last Myocardial Infarction Date:: 2006 History of Any Multi-Drug Resistant Organisms: None Reported Past Surgical History: AICD, Coronary Bypass/CABG, Heart Catheterization, Heart Catheterization With Stent, Pacemaker Additional Past Surgical History / Comment(s): PCI with one stent 2006 CABG 3 vessel and AICD, DFTs, aortagram with runoff, colonoscopy, bilateral cataract removals/lens implants, multiple debridements of wounds, left bka Past Anesthesia/Blood Transfusion Reactions: No Reported Reaction Date of Last Stent Placement:: 1998 Type of Cardiac Device: Permanent Pacemaker, AICD Device Placement Date:: 2006 Past Psychological History: No Psychological Hx Reported Smoking Status: Former smoker Past Alcohol Use History: None Reported Past Drug Use History: None Reported - Past Family History Sister(s) Additional Family Medical History / Comment(s): Pt has a sister with COPD, another sister with diabetes/copd/htn and another sister with diabetes. Father Family Medical History: Myocardial Infarction (AL) Additional Family Medical History / Comment(s): Father of a AL at the age of 75 yrs. Brother(s) Family Medical History: Coronary Artery Disease (CAD), CVA/TIA, Diabetes Mellitus, Myocardial Infarction (AL) Additional Family Medical History / Comment(s): One brother had a AL at 38yrs and at age 48yrs. Another brother is alive and had a stroke. Mother Family Medical History: Diabetes Mellitus, Renal Disease Additional Family Medical History / Comment(s): Mother at age 62 from renal failure Medications and Allergies Home Medications Medication Instructions Recorded Confirmed Type Fenofibrate 160 mg PO DAILY 03/31/14 07/18/22 History Insulin Lispro [humaLOG Kwikpen] See Protocol SQ AC-TID 03/31/14 07/18/22 History Atorvastatin [Lipitor] 40 mg PO DAILY 05/24/20 07/18/22 History Metoprolol Tartrate 25 mg PO TID 05/24/20 07/18/22 History Aspirin 81 mg PO DAILY 90 Days #90 chew 12/16/20 07/18/22 Rx Folic Acid 1 mg PO DAILY 90 Days #90 tab 12/27/20 07/18/22 Rx Ergocalciferol (Vitamin D2) 1,250 mcg PO MO 06/02/21 07/18/22 History [Drisdol (50,000 Iu)] Insulin Glargine,Hum.rec.anlog 30 units SQ HS 06/02/21 07/18/22 History [Touisa Gomesostdottie] Levothyroxine Sodium [Synthroid] 50 mcg PO DAILY 06/02/21 07/18/22 History Levothyroxine Sodium [Synthroid] 200 mcg PO DAILY 06/02/21 07/25/21 History Losartan [Cozaar] 50 mg PO DAILY 06/02/21 07/18/22 History Insulin Lispro [humaLOG Kwikpen] 5 unit SQ AC-TID 07/25/21 07/18/22 History Finerenone [Kerendia] 10 mg PO HS 07/18/22 07/18/22 History Furosemide [Lasix] 40 mg PO BID 07/18/22 07/18/22 History Omeprazole 40 mg PO DAILY 07/18/22 07/18/22 History Allergies Allergy/AdvReac Type Severity Reaction Status Date / Time No Known Allergies Allergy Verified 07/18/22 14:56 Surgical - Exam Vital Signs Temp Pulse Resp BP Pulse Ox 97.4 F L 54 L 16 179/75 99 07/18/22 13:05 07/18/22 13:05 07/18/22 13:05 07/18/22 13:05 07/18/22 13:05 General: Well developed, well nourished. No acute distress. HEENT: Head is atraumatic, normocephalic. Mucus membranes moist. Lungs: Clear to auscultation bilaterally. Respirations even and nonlabored. Abdomen/GI: Abdomen firm,No guarding, rigidity, or abdominal tenderness. : Armenta catheter draining clear, yellow urine. Normal phallus, normal testes. NEY: Normal anal sphincter tone, no rectal mass. Small amount of hard stool within rectal vault. Prostate 20-30 g, smooth in consistency. Skin: Warm and dry, No rash or lesions. Neurologic: Awake, alert and oriented times 3. CN II-XII grossly intact. No focal deficits. Psychiatric: Appropriate mood and affect. Results - Labs 07/25/22 05:02 07/25/22 05:02 Abnormal Lab Results - Last 24 Hours (Table) 07/24/22 07/24/22 07/24/22 Range/Units 17:16 19:28 21:25 RBC (4.40-5.60) X 10*6/uL Hgb (13.0-17.0) g/dL Hct (39.6-50.0) % MCHC (32.0-37.0) g/dL RDW (11.5-14.5) % Immature Gran # (0.00-0.04) X 10*3/uL Lymphocytes # (0.90-5.00) X 10*3/uL Eosinophils # (0.04-0.35) X 10*3/uL BUN (9.0-27.0) mg/dL Creatinine (0.6-1.5) mg/dL Est GFR (CKD-EPI)AfAm (60.0-200.0) Est GFR (CKD-EPI)NonAf (60.0-200.0) BUN/Creatinine Ratio (12.00-20.00) Ratio Glucose (70-110) mg/dL POC Glucose (mg/dL) 151 H 181 H 177 H (70-110) mg/dL Calcium (8.7-10.3) mg/dL Alkaline Phosphatase (41-126) U/L Total Protein (6.2-8.2) g/dL Albumin (3.8-4.9) g/dL Albumin/Globulin Ratio (1.60-3.17) g/dL 07/25/22 07/25/22 07/25/22 Range/Units 05:02 05:02 05:55 RBC 2.73 L (4.40-5.60) X 10*6/uL Hgb 7.6 L (13.0-17.0) g/dL Hct 24.7 L (39.6-50.0) % MCHC 30.8 L (32.0-37.0) g/dL RDW 15.7 H (11.5-14.5) % Immature Gran # 0.12 H (0.00-0.04) X 10*3/uL Lymphocytes # 0.88 L (0.90-5.00) X 10*3/uL Eosinophils # 0.39 H (0.04-0.35) X 10*3/uL BUN 57.1 H (9.0-27.0) mg/dL Creatinine 4.8 H (0.6-1.5) mg/dL Est GFR (CKD-EPI)AfAm 13.7 L (60.0-200.0) Est GFR (CKD-EPI)NonAf 11.8 L (60.0-200.0) BUN/Creatinine Ratio 11.90 L (12.00-20.00) Ratio Glucose 135 H (70-110) mg/dL POC Glucose (mg/dL) 141 H (70-110) mg/dL Calcium 7.8 L (8.7-10.3) mg/dL Alkaline Phosphatase 210 H (41-126) U/L Total Protein 5.1 L (6.2-8.2) g/dL Albumin 2.4 L (3.8-4.9) g/dL Albumin/Globulin Ratio 0.89 L (1.60-3.17) g/dL 07/25/22 07/25/22 Range/Units 06:53 11:59 RBC (4.40-5.60) X 10*6/uL Hgb (13.0-17.0) g/dL Hct (39.6-50.0) % MCHC (32.0-37.0) g/dL RDW (11.5-14.5) % Immature Gran # (0.00-0.04) X 10*3/uL Lymphocytes # (0.90-5.00) X 10*3/uL Eosinophils # (0.04-0.35) X 10*3/uL BUN (9.0-27.0) mg/dL Creatinine (0.6-1.5) mg/dL Est GFR (CKD-EPI)AfAm (60.0-200.0) Est GFR (CKD-EPI)NonAf (60.0-200.0) BUN/Creatinine Ratio (12.00-20.00) Ratio Glucose (70-110) mg/dL POC Glucose (mg/dL) 139 H 201 H (70-110) mg/dL Calcium (8.7-10.3) mg/dL Alkaline Phosphatase (41-126) U/L Total Protein (6.2-8.2) g/dL Albumin (3.8-4.9) g/dL Albumin/Globulin Ratio (1.60-3.17) g/dL Microbiology - Last 24 Hours (Table) 07/18/22 19:49 Blood Culture - Final Blood No Growth after 144 hours 07/18/22 19:56 Blood Culture - Final Blood No Growth after 144 hours Diabetes panel 07/25/22 Range/Units 05:02 Sodium 136 (135-145) mmol/L Potassium 4.1 (3.5-5.5) mmol/L Chloride 101 (96-109) mmol/L Carbon Dioxide 20.8 (20.0-27.5) mmol/L BUN 57.1 H (9.0-27.0) mg/dL Creatinine 4.8 H (0.6-1.5) mg/dL Glucose 135 H (70-110) mg/dL Calcium 7.8 L (8.7-10.3) mg/dL AST 34 (14-35) U/L ALT 16 (10-49) U/L Alkaline Phosphatase 210 H (41-126) U/L Total Protein 5.1 L (6.2-8.2) g/dL Albumin 2.4 L (3.8-4.9) g/dL Calcium panel 07/25/22 Range/Units 05:02 Calcium 7.8 L (8.7-10.3) mg/dL Albumin 2.4 L (3.8-4.9) g/dL Pituitary panel 07/25/22 Range/Units 05:02 Sodium 136 (135-145) mmol/L Potassium 4.1 (3.5-5.5) mmol/L Chloride 101 (96-109) mmol/L Carbon Dioxide 20.8 (20.0-27.5) mmol/L BUN 57.1 H (9.0-27.0) mg/dL Creatinine 4.8 H (0.6-1.5) mg/dL Glucose 135 H (70-110) mg/dL Calcium 7.8 L (8.7-10.3) mg/dL Adrenal panel 07/25/22 Range/Units 05:02 Sodium 136 (135-145) mmol/L Potassium 4.1 (3.5-5.5) mmol/L Chloride 101 (96-109) mmol/L Carbon Dioxide 20.8 (20.0-27.5) mmol/L BUN 57.1 H (9.0-27.0) mg/dL Creatinine 4.8 H (0.6-1.5) mg/dL Glucose 135 H (70-110) mg/dL Calcium 7.8 L (8.7-10.3) mg/dL Total Bilirubin 0.40 (0.30-1.20) mg/dL AST 34 (14-35) U/L ALT 16 (10-49) U/L Alkaline Phosphatase 210 H (41-126) U/L Total Protein 5.1 L (6.2-8.2) g/dL Albumin 2.4 L (3.8-4.9) g/dL Assessment and Plan Assessment: Patient c/o constipation. He states he has not had a bowel movement in seven days. His abdomen is firm. He states he has abdominal pressure which is making it difficult to take a deep breath or even eat. No nausea or vomiting. No flank pain, no suprapubic tenderness. Armenta draining clear, yellow urine. No hematuria. No history of retention. Abdominal/pelvis CT from 07/18/22 shows bl adder thickening and perinephric edema (CT scan images reviewed). Plan: - Agree with addition of Flomax - Leave Armenta catheter in place - Dulcolax suppository Impression and plan of care have been directed as dictated by the signing physician. Susan Segovia nurse practitioner acting as scribe for signing physician. Susan Segovia [facility] Palliative Care/Urology Spectralink [id number] Email: [email or web address] I have personally seen and examined the patient, reviewed the documentation and agree with the assessment and plan as written. Number of minutes spent on the visit: 35. Larry Diaz MD Time with Patient: Greater than 30
[2022-07-25] MEDS: LACTATED RINGERS 1,000 ML IV SCH (16:19)
[2022-07-25 17:05] LABS: Glucose,Whole Blood 109 mg/dL (70-110)
[2022-07-25] MEDS: TAMSULOSIN 0.4 MG CAP.ER.24H PO SCH (17:44)
[2022-07-25 19:54] LABS: Glucose,Whole Blood 95 mg/dL (70-110)
[2022-07-25] MEDS: INSULIN DETEMIR (LEVEMIR) 100 UNIT/ML SYR SQ SCH (21:32)
--- NOTE | 2022-07-26 01:07 | PN ---
PROGRESS NOTE A 66-year-old, status post cholecystectomy, worsening renal function. If it does not improve, possibly have to have a Armenta placed, possibly a urinary consult with the renal doctor. Continue with fluid rehydration. Check labs, electrolytes in the morning. He is breathing better. Possibly, he has tried a retention and status post from anesthesia. Continue current treatments. Please see further orders. Wait for renal physician and standard surgical postop care. MMODL / IJN: [id number] /
[2022-07-26] MEDS: LEVOTHYROXINE 125 MCG TAB PO SCH (06:04)
[2022-07-26 07:52] LABS: Glucose,Whole Blood 125 mg/dL (70-110)
[2022-07-26] MEDS: FUROSEMIDE 10 MG/ML 2 ML VIAL IV SCH (08:42)
[2022-07-26] MEDS: INSULIN ASPART (NovoLOG) 100 UNIT/ML VIAL SQ SCH ×4 (08:42→21:16)
[2022-07-26 08:47] LABS: African American GFR (CKD) 11.1 (60.0-200.0); Anion Gap 14.7 mmol/L (10.00-18.00); BUN/Creat Ratio 10.84 Ratio (12.00-20.00); Blood Urea Nitrogen 61.8 mg/dL (9.0-27.0); Calcium 7.8 mg/dL (8.7-10.3); Carbon Dioxide 21.3 mmol/L (20.0-27.5); Magnesium 1.8 mg/dL (1.5-2.4); Non-African American GFR(CKD) 9.6 (60.0-200.0)
--- NOTE | 2022-07-26 10:29 | P.PN ---
Subjective Progress Note Date: 07/26/22 CHIEF COMPLAINT: Abdominal pain HISTORY OF PRESENT ILLNESS: Patient postop day #3 status post laparoscopic cholecystectomy. He reports improvement in his constipation. He has had multiple bowel movements. He reports that his abdomen is softer. He is having flatus. He denies any nausea or vomiting. He had 5 soft, thick, loose stools. Afebrile. Creatinine is up from 4.8-5.7. Patient has Armenta catheter in place due to urinary retention. He is making urine. He does report improvement in his breathing Patient seen and examined with Dr. grimes PHYSICAL EXAM: VITAL SIGNS: Reviewed. GENERAL: Well-developed in no acute distress. HEENT: No sclera icterus. Extraocular movements grossly intact. Moist buccal mucosa. Head is atraumatic, normocephalic. ABDOMEN: Soft. Decreased abdominal distention. nontender NEUROLOGIC: Alert and oriented. Cranial nerves II through XII grossly intact. ASSESSMENT: 1. Gangrenous gallbladder with cholecystitis status post laparoscopic cholecystectomy 2. Cholelithiasis 3. Constipation 4. Pneumonia 5. Acute kidney injury followed by nephrology 6. Cardiac history including ischemic cardiomyopathy with AICD and prior CABG 7. History of peripheral arterial disease 8. Urinary retention PLAN: -Continue regular diet -Discontinue Colace and MiraLAX due to multiple bowel movements -Acute kidney injury management per nephrology -Continue antibiotics. Patient will require antibiotics at discharge -DVT prophylaxis subcu heparin and GI prophylaxis Protonix Physician Material Lister note has been reviewed by physician. Signing provider agrees with the documented findings, assessment, and plan of care. Objective - Vital Signs Vital signs: Vital Signs Temp 97.6 F 07/26/22 09:00 Pulse 73 07/26/22 09:00 Resp 18 07/26/22 09:00 BP 160/80 07/26/22 09:00 Pulse Ox 98 07/26/22 09:00 FiO2 Intake & Output 07/25/22 07/26/22 07/26/22 18:59 06:59 18:59 Intake Total 236 Output Total 580 Balance -344 Intake: Oral 236 Output: Urine 580 Other: Voiding Method Indwelling Catheter Bedpan Bedpan Indwelling Catheter Indwelling Catheter # Voids 3 # Bowel Movements 1 1 - Labs CBC & Chem 7: 07/25/22 05:02 07/26/22 04:59 Labs: Abnormal Lab Results - Last 24 Hours (Table) 07/25/22 07/26/22 07/26/22 Range/Units 11:59 04:59 07:49 BUN 61.8 H (9.0-27.0) mg/dL Creatinine 5.7 H (0.6-1.5) mg/dL Est GFR (CKD-EPI)AfAm 11.1 L (60.0-200.0) Est GFR (CKD-EPI)NonAf 9.6 L (60.0-200.0) BUN/Creatinine Ratio 10.84 L (12.00-20.00) Ratio POC Glucose (mg/dL) 201 H 125 H (70-110) mg/dL Calcium 7.8 L (8.7-10.3) mg/dL
[2022-07-26] MEDS: HEPARIN SODIUM,PORCINE/PF 5,000 UNIT/0.5 ML SYRINGE SQ SCH ×2 (11:01→21:16)
[2022-07-26] MEDS: METOPROLOL TARTRATE 25 MG TAB PO SCH ×3 (11:02→21:16)
[2022-07-26] MEDS: FOLIC ACID 1 MG TAB PO SCH (11:02)
[2022-07-26] MEDS: SODIUM BICARBONATE TAB 650 MG TAB PO SCH ×2 (11:02→21:16)
[2022-07-26] MEDS: FENOFIBRATE 160 MG TAB PO SCH (11:02)
[2022-07-26] MEDS: ASPIRIN 81 MG PO SCH (11:02)
[2022-07-26] MEDS: PIPERACILLIN-TAZOBACTAM 3.375 GM in SODIUM CHLORIDE 0.9% 100 ML IVPB SCH ×2 (11:02→22:10)
[2022-07-26] MEDS: PANTOPRAZOLE 40 MG TABLET PO SCH (11:02)
[2022-07-26] MEDS: ATORVASTATIN 40 MG TAB PO SCH (11:02)
--- NOTE | 2022-07-26 11:03 | P.PN ---
Subjective Patient is seen in follow-up for acute kidney injury. Renal function worsening. Creatinine 5.7 today. Has Armenta catheter for urinary retention. Nonoliguric. Oral intake fair. Blood pressure has been stable. On room air currently. Vital signs stable. General: Awake. No acute distress. HEENT: Head exam is unremarkable. LUNGS: Breath sounds decreased. HEART: Rate and Rhythm are regular. ABDOMEN: Soft, obese. No significant tenderness. EXTREMITITES: Bilateral [id number] amputations noted. Objective - Vital Signs Vital signs: Vital Signs Temp 97.6 F 07/26/22 09:00 Pulse 73 07/26/22 09:00 Resp 18 07/26/22 09:00 BP 160/80 07/26/22 09:00 Pulse Ox 98 07/26/22 09:00 FiO2 Intake & Output 07/25/22 07/26/22 07/26/22 18:59 06:59 18:59 Intake Total 236 Output Total 580 Balance -344 Intake: Oral 236 Output: Urine 580 Other: Voiding Method Indwelling Catheter Bedpan Bedpan Indwelling Catheter Indwelling Catheter # Voids 3 # Bowel Movements 1 1 - Labs CBC & Chem 7: 07/25/22 05:02 07/26/22 04:59 Labs: Abnormal Lab Results - Last 24 Hours (Table) 07/25/22 07/26/22 07/26/22 Range/Units 11:59 04:59 07:49 BUN 61.8 H (9.0-27.0) mg/dL Creatinine 5.7 H (0.6-1.5) mg/dL Est GFR (CKD-EPI)AfAm 11.1 L (60.0-200.0) Est GFR (CKD-EPI)NonAf 9.6 L (60.0-200.0) BUN/Creatinine Ratio 10.84 L (12.00-20.00) Ratio POC Glucose (mg/dL) 201 H 125 H (70-110) mg/dL Calcium 7.8 L (8.7-10.3) mg/dL Assessment and Plan Plan: Assessment: 1. Acute kidney injury secondary to ATN secondary to hypotension and further worsened with the use of Cozaar and Kerendia. Creatinine was 2 on admission and is up to 5.7 today. No hydronephrosis noted on CAT scan. Creatinine in February 2021 was as low as 1.0. 2. Hyponatremia secondary to acute kidney injury. Improved. 3. Metabolic acidosis secondary to acute kidney injury and IV fluids. On oral bicarbonate. Better. 4. Pneumonia maintained on antibiotics. 5. Gallstones with concern for cholecystitis been followed by surgery. Status post cholecystectomy 07/23/2022. 6. Diabetes mellitus. 7. Hypertension with chronic kidney disease. Stable. 8. Anemia. Iron deficiency noted. On Aranesp. s/p IV iron. 9. History of coronary disease status post cardiac stenting and CABG. 10. Rule out chronic disease. Patient does have 1+ proteinuria which is most l ikely secondary to underlying diabetic kidney disease. 11. Hypomagnesemia from poor intake. Replaced. 12. Urinary retention. Armenta catheter placed. On Flomax. Urology following. 13. Volume overload. Plan: Stopped Cozaar and Kerendia. Off IV fluids. Encourage oral intake. Increase dose of Lasix to 40 mg IV twice daily. Avoid nephrotoxins. Continue to monitor renal function and urine output. Continue to assess for need for renal replacement therapy on daily basis. If no improvement in renal function and urine output in the next 24 hours, will start.
[2022-07-26] MEDS: DOCUSATE 100 MG CAP PO SCH (11:36)
[2022-07-26] MEDS: polyethylene glycoL 3350 17 GM POWD.PACK PO SCH (11:37)
[2022-07-26 12:55] LABS: Glucose,Whole Blood 116 mg/dL (70-110)
--- NOTE | 2022-07-26 15:34 | P.PN ---
Subjective Progress Note Date: 07/26/22 Principal diagnosis: Left lower lobe community-acquired pneumonia, on Rocephin we'll continue Acute kidney disease, transient renal function and monitor electrolytes closely Coronary artery disease ischemic cardiomyopathy, continuation of home medications Diabetes mellitus uncontrolled with hyperglycemia continue sliding scale insulin and home medications 07/26/2022, patient seen eval examined during the rounds labs reviewed medications reviewed care plan discussed, Estrace status remains stable denies any chest pain, however does have bloating sensation, some nauseous intermittent feeling, currently feels better, chest pain is improved, breathing more comfortably, hemodynamically patient is stable afebrile with oxygen saturation 98% room air, hemodynamically stable blood pressure is 1:30/64 07/25/2022, patient seen eval examined during the rounds labs reviewed m edications reviewed, chest x-ray performed today reviewed him a bibasilar atelectasis along with possible pneumonia present, patient afebrile hemodynamically stable oxygen saturation is 96% on 2 L. Labs reviewed hemoglobin and hematocrit 7.6/24.7, BUN/creatinine 57/4.8 07/24/2022, patient seen and evaluated examined postop day #1 of laparoscopic cholecystectomy by Dr. Rodgers is overall doing well, passing gas from below, respirations stable, denies any chest pain, pleuritic chest pain noted p reviously have improved though, 07/22/2022, patient breathing K more comfortably, still have intermittent cough and sputum production, no night sweats fever or chills present, abdominal pain appears to be slightly better, patient has been evaluated by nephrology for acute tubular necrosis thought to be related to hypertension with concomitant use of Cozaar currently to 4.6 now R inhibitor and hold and patient has been gently rehydrated, patient has been on Zosyn for pneumonia as well as the acute cholecystitis being planned for surgery early next week 07/21/2022, patient seen eval reexamined during the rounds labs reviewed medications reviewed care plan discussed, respiratory status continued to improve however still cough congestion and yellowish sputum production is present, blood cultures no growth, patient remains on broad-spectrum antibiotic for left lower lobe pneumonia patient has a component of pleuritic chest pain, responded well with pain medicine, patient has been evaluated by surgical services for cholecystitis, patient is scheduled for cholecystectomy early next week 07/20/2022, patient seen and evaluated examined, cough congestion slightly improved still however producing greenish sputum, sputum cultures are pending however blood cultures have been negative so far. Patient is status post HIDA scan that will not visualized likely related to cystic-type obstruction or cholecystitis, general surgery have been consulted to labs from today reviewed white cell count is 14.74, hemoglobin and hematocrit 8.9/27, BUN/creatinine 45.9/2.5 blood sugar mostly higher than 300 range Patient is a 66-year-old female came into the hospital with a developing right upper quadrant pain along with nausea and vomiting started 1 day prior to coming to the hospital, ongoing intermittent diarrhea present as well, denies any fever or chills so throat has some problems with cough and shortness of breath as well. Her past medical history significant for diabetes dyslipidemia hypertension hypertensive cardiovascular disease hypothyroidism, chronic neuropathy and leg edema, status post AICD, coronary artery disease status post CABG 3 and placement for ischemic cardiomyopathy with AICD, status post left BKA, labs reviewed CBC within normal limit BUN/creatinine 48/2.01 blood sugar is 340. Computed tomography scan of the chest positive for left lower lobe consolidation along with trace pleural effusion consistent with pneumonia evidence of cholelithiasis seen as well. Currently patient is on IV Rocephin along with continuation of home medications Objective - Vital Signs Vital signs: Vital Signs Temp 97.9 F 07/26/22 14:02 Pulse 63 07/26/22 14:02 Resp 20 07/26/22 14:02 BP 130/64 07/26/22 14:02 Pulse Ox 98 07/26/22 14:02 FiO2 Intake & Output 07/25/22 07/26/22 07/26/22 18:59 06:59 18:59 Intake Total 236 Output Total 580 Balance -344 Intake: Oral 236 Output: Urine 580 Other: Voiding Method Indwelling Catheter Bedpan Bedpan Indwelling Catheter Indwelling Catheter # Voids 3 # Bowel Movements 1 1 - Exam - Constitutional General appearance: average body habitus, disheveled - EENT Eyes: EOMI, PERRLA ENT: normal oropharynx Ears: bilateral: normal - Neck Carotids: bilateral: upstroke normal Thyroid: bilateral: normal size - Respiratory Respiratory: bilateral: CTA - Cardiovascular Rhythm: regular Heart sounds: normal: S1, S2 - Gastrointestinal General gastrointestinal: decreased bowel sounds, soft - Integumentary Integumentary: normal turgor - Neurologic Neurologic: CNII-XII intact - Musculoskeletal Musculoskeletal: generalized weakness, strength equal bilaterally - Psychiatric Psychiatric: A&O x's 3, appropriate affect, intact judgment & insight - Labs CBC & Chem 7: 07/25/22 05:02 07/26/22 04:59 Labs: Abnormal Lab Results - Last 24 Hours (Table) 07/26/22 07/26/22 07/26/22 Range/Units 04:59 07:49 12:54 BUN 61.8 H (9.0-27.0) mg/dL Creatinine 5.7 H (0.6-1.5) mg/dL Est GFR (CKD-EPI)AfAm 11.1 L (60.0-200.0) Est GFR (CKD-EPI)NonAf 9.6 L (60.0-200.0) BUN/Creatinine Ratio 10.84 L (12.00-20.00) Ratio POC Glucose (mg/dL) 125 H 116 H (70-110) mg/dL Calcium 7.8 L (8.7-10.3) mg/dL Assessment and Plan Assessment: Left lower lobe community-acquired pneumonia, on Zosyn we'll continue Acute cholecystitis, surgery on consult, status post cholecystectomy laparoscopy postop day #1 doing well Acute kidney disease, with worsening of renal functions, nephrology is following Anitra as well as No on hold, renal functions steadily getting worse Coronary artery disease ischemic cardiomyopathy, continuation of home medications Diabetes mellitus uncontrolled with hyperglycemia continue sliding scale insulin and home medications Plan: As above Time with Patient: Greater than 30
--- NOTE | 2022-07-26 16:27 | P.PN ---
Progress Note - Text Progress Note Date: 07/26/22 Patient stated he feels much better after having several bowel movements. He feels less pressure in his abdomen. Recommend leaving sheridan catheter in so bladder can regain its tone. Remove sheridan and voiding trial before discharge. Impression and plan of care have been directed as dictated by the signing physician. Susan Segovia nurse practitioner acting as scribe for signing physician.Susan Segovia [facility] Palliative Care/Urology Spectralink [phone] Email: [email or web address] I personally performed and participated in the history, physical, and decision making for this patient. I agree with the assessment and plan of Susan Segovia NP. Larry Diaz MD
[2022-07-26 16:50] LABS: Glucose,Whole Blood 126 mg/dL (70-110)
[2022-07-26] MEDS: LACTATED RINGERS 1,000 ML IV SCH (17:39)
[2022-07-26] MEDS: TAMSULOSIN 0.4 MG CAP.ER.24H PO SCH (17:46)
[2022-07-26 20:46] LABS: Glucose,Whole Blood 166 mg/dL (70-110)
[2022-07-26] MEDS: INSULIN DETEMIR (LEVEMIR) 100 UNIT/ML SYR SQ SCH (21:16)
[2022-07-26] MEDS: FUROSEMIDE 10 MG/ML 4 ML VIAL IV SCH (21:16)
--- NOTE | 2022-07-26 23:00 | PN ---
PROGRESS NOTE SUBJECTIVE: A 66-year-old white male, status post cholecystectomy, is kept here for his worsening renal function, BUN is 57, creatinine is 4.8, hemoglobin is now 7.6. He possibly has a renal obstruction or anesthesia causing BPH. Currently on Zosyn for left lower lobe community-acquired pneumonia. Started back on Lasix as he wanted taking at home, you know he possibly has an obstruction. He has constipation, no bowel movement in 7 days, is firm. Has perinephric edema and thickening. Armenta draining clear. Prognosis is guarded. Possibly treat his constipation, treat his pneumonia status post laparoscopic cholecystectomy, cholelithiasis, worsening renal function, acute kidney injury, constipation. Continue antibiotics, prophylaxis. Armenta catheter. Monitor for severe anemia, hemoglobin is 7.6. PROGNOSIS: Guarded. MMELÍASL / JENNAN: [id number] /
[2022-07-27 02:46] LABS: Glucose,Whole Blood 150 mg/dL (70-110)
[2022-07-27 06:32] LABS: Glucose,Whole Blood 146 mg/dL (70-110)
[2022-07-27] MEDS: INSULIN ASPART (NovoLOG) 100 UNIT/ML VIAL SQ SCH ×4 (06:35→21:10)
[2022-07-27] MEDS: LEVOTHYROXINE 125 MCG TAB PO SCH (06:36)
[2022-07-27 08:42] LABS: HGB 7.6 g/dL (13.0-17.0); MCH 28.8 pg (27.0-32.0); MCHC 31.7 g/dL (32.0-37.0); MCV 90.9 fL (80.0-97.0); Mean Platelet Volume 9.9 fL (9.5-12.2); NRBC Per 100 WBC 0 /100 WBCS (0.0-0.0); Platelet Count 343 X 10*3/uL (140-440); RBC 2.64 X 10*6/uL (4.40-5.60); RDW 15.7 % (11.5-14.5); WBC 11.65 X 10*3/uL (4.50-10.00)
[2022-07-27] MEDS: ASPIRIN 81 MG PO SCH (08:57)
[2022-07-27] MEDS: FENOFIBRATE 160 MG TAB PO SCH (08:57)
[2022-07-27] MEDS: ATORVASTATIN 40 MG TAB PO SCH (08:57)
[2022-07-27] MEDS: METOPROLOL TARTRATE 25 MG TAB PO SCH ×3 (08:58→21:23)
[2022-07-27] MEDS: FOLIC ACID 1 MG TAB PO SCH (08:58)
[2022-07-27 08:59] LABS: African American GFR (CKD) 10.8 (60.0-200.0); BUN/Creat Ratio 11.3 Ratio (12.00-20.00); Blood Urea Nitrogen 66.1 mg/dL (9.0-27.0); Calcium 7.8 mg/dL (8.7-10.3); Carbon Dioxide 19.3 mmol/L (20.0-27.5); Non-African American GFR(CKD) 9.3 (60.0-200.0); Potassium 3.7 mmol/L (3.5-5.5)
[2022-07-27] MEDS: SODIUM BICARBONATE TAB 650 MG TAB PO SCH ×3 (08:59→21:23)
[2022-07-27] MEDS: PANTOPRAZOLE 40 MG TABLET PO SCH (08:59)
[2022-07-27] MEDS: FUROSEMIDE 10 MG/ML 4 ML VIAL IV SCH ×2 (09:04→21:22)
[2022-07-27] MEDS: HEPARIN SODIUM,PORCINE/PF 5,000 UNIT/0.5 ML SYRINGE SQ SCH ×2 (09:04→21:22)
--- NOTE | 2022-07-27 09:38 | P.PN ---
Progress Note - Text Progress Note Date: 07/27/22 Patient seen as a follow up for urinary retention. Armenta catheter remains in place and draining clear davina urine. Creatinine continues to rise and is 5.9 today. Nephrology following closely for potential need for dialysis. Recommend leaving Armenta catheter in so bladder can regain its tone, and to maximize renal function. Plan to remove catheter before discharge for voiding trial. Impression and plan of care have been directed as dictated by the signing physician. Susan Segovia nurse practitioner acting as scribe for signing physician. Susan Segovia [facility] Palliative Care/Urology Spect[facility]ink [id number] Email: [email or web address] I have personally seen and examined the patient, reviewed the documentation and agree with the assessment and plan as written. Larry Diaz MD
[2022-07-27] MEDS: PIPERACILLIN-TAZOBACTAM 3.375 GM in SODIUM CHLORIDE 0.9% 100 ML IVPB SCH ×2 (11:14→21:24)
[2022-07-27 11:44] LABS: Glucose,Whole Blood 130 mg/dL (70-110)
--- NOTE | 2022-07-27 11:50 | P.PN ---
Subjective Patient is seen in follow-up for acute kidney injury. Renal function worsening the last few days. Creatinine 5.9 today. On IV Lasix. Nonoliguric. Has Armenta catheter for urinary retention. Nonoliguric. Oral intake fair. Blood pressure not low. On room air currently. Vital signs stable. General: Awake. No acute distress. HEENT: Head exam is unremarkable. LUNGS: Breath sounds decreased. HEART: Rate and Rhythm are regular. ABDOMEN: Soft, obese. No significant tenderness. EXTREMITITES: Bilateral [id number] amputations noted. Objective - Vital Signs Vital signs: Vital Signs Temp 97.6 F 07/27/22 07:44 Pulse 68 07/27/22 08:55 Resp 20 07/27/22 07:44 BP 164/70 07/27/22 08:55 Pulse Ox 98 07/27/22 07:44 FiO2 Intake & Output 07/26/22 07/27/22 07/27/22 18:59 06:59 18:59 Intake Total 240 Output Total 335 700 Balance -335 -700 240 Intake: Oral 240 Output: Urine 335 700 Other: Voiding Method Bedpan Indwelling Catheter Indwelling Catheter Indwelling Catheter # Voids 1 # Bowel Movements 1 2 - Labs CBC & Chem 7: 07/27/22 05:44 07/27/22 05:44 Labs: Abnormal Lab Results - Last 24 Hours (Table) 07/26/22 07/26/22 07/26/22 Range/Units 12:54 16:48 20:45 WBC (4.50-10.00) X 10*3/uL RBC (4.40-5.60) X 10*6/uL Hgb (13.0-17.0) g/dL Hct (39.6-50.0) % MCHC (32.0-37.0) g/dL RDW (11.5-14.5) % Carbon Dioxide (20.0-27.5) mmol/L BUN (9.0-27.0) mg/dL Creatinine (0.6-1.5) mg/dL Est GFR (CKD-EPI)AfAm (60.0-200.0) Est GFR (CKD-EPI)NonAf (60.0-200.0) BUN/Creatinine Ratio (12.00-20.00) Ratio Glucose (70-110) mg/dL POC Glucose (mg/dL) 116 H 126 H 166 H (70-110) mg/dL Calcium (8.7-10.3) mg/dL 07/27/22 07/27/22 07/27/22 Range/Units 02:45 05:44 05:44 WBC 11.65 H (4.50-10.00) X 10*3/uL RBC 2.64 L (4.40-5.60) X 10*6/uL Hgb 7.6 L (13.0-17.0) g/dL Hct 24.0 L (39.6-50.0) % MCHC 31.7 L (32.0-37.0) g/dL RDW 15.7 H (11.5-14.5) % Carbon Dioxide 19.3 L (20.0-27.5) mmol/L BUN 66.1 H (9.0-27.0) mg/dL Creatinine 5.9 H (0.6-1.5) mg/dL Est GFR (CKD-EPI)AfAm 10.8 L (60.0-200.0) Est GFR (CKD-EPI)NonAf 9.3 L (60.0-200.0) BUN/Creatinine Ratio 11.30 L (12.00-20.00) Ratio Glucose 134 H (70-110) mg/dL POC Glucose (mg/dL) 150 H (70-110) mg/dL Calcium 7.8 L (8.7-10.3) mg/dL 07/27/22 07/27/22 Range/Units 06:30 11:42 WBC (4.50-10.00) X 10*3/uL RBC (4.40-5.60) X 10*6/uL Hgb (13.0-17.0) g/dL Hct (39.6-50.0) % MCHC (32.0-37.0) g/dL RDW (11.5-14.5) % Carbon Dioxide (20.0-27.5) mmol/L BUN (9.0-27.0) mg/dL Creatinine (0.6-1.5) mg/dL Est GFR (CKD-EPI)AfAm (60.0-200.0) Est GFR (CKD-EPI)NonAf (60.0-200.0) BUN/Creatinine Ratio (12.00-20.00) Ratio Glucose (70-110) mg/dL POC Glucose (mg/dL) 146 H 130 H (70-110) mg/dL Calcium (8.7-10.3) mg/dL Assessment and Plan Plan: Assessment: 1. Acute kidney injury secondary to ATN secondary to hypotension and further worsened with the use of Cozaar and Kerendia. Creatinine was 2 on admission and is up to 5.9 today. No hydronephrosis noted on CAT scan. Creatinine in February 2021 was as low as 1.0. 2. Hyponatremia secondary to acute kidney injury. Improved. Stable today. 3. Metabolic acidosis secondary to acute kidney injury and IV fluids. On oral bicarbonate. 4. Pneumonia maintained on antibiotics. 5. Gallstones with concern for cholecystitis been followed by surgery. Status post cholecystectomy 07/23/2022. 6. Diabetes mellitus. 7. Hypertension with chronic kidney disease. 8. Anemia. Iron deficiency noted. On Aranesp. s/p IV iron. 9. History of coronary disease status post cardiac stenting and CABG. 10. Rule out chronic disease. Patient does have 1+ proteinuria which is most likely secondary to underlying diabetic kidney disease. 11. Hypomagnesemia from poor intake. Replaced. Better. 12. Urinary retention. Armenta catheter placed. On Flomax. Urology following. 13. Volume overload. Plan: Stopped Cozaar and Kerendia. Off IV fluids. Encourage oral intake. Maintain IV Lasix. Avoid nephrotoxins. Increase bicarbonate to 3 times a day. Add amlodipine 5 mg once daily. Continue to monitor renal function and urine output. Discussed with patient the need to start renal replacement therapy due to worsening renal function and volume overload. Patient refusing to start at this time but will consider starting in the next 1- 2 days depending on the renal function. Will continue to address a daily basis.
[2022-07-27] MEDS: amLODIPine 5 MG TAB PO SCH (12:25)
[2022-07-27] MEDS: LACTATED RINGERS 1,000 ML IV SCH (15:40)
--- NOTE | 2022-07-27 17:19 | P.PN ---
Subjective Progress Note Date: 07/27/22 Principal diagnosis: Left lower lobe community-acquired pneumonia, on Rocephin we'll continue Acute kidney disease, transient renal function and monitor electrolytes closely Coronary artery disease ischemic cardiomyopathy, continuation of home medications Diabetes mellitus uncontrolled with hyperglycemia continue sliding scale insulin and home medications 07/27/2022, patient seen eval examined during rounds labs reviewed medications reviewed remains on IV antibiotics for pneumonia cough is stable but is still short of breath, labs from today reviewed CBC within normal limit hemoglobin 7.6 which is stable, sodium 135, anion gap increases 17, BUN/creatinine continue to go up 66/5.9 GFR is 9.3 slowly declining patient is being followed by nephrology, patient has been having some bloating sensation which is otherwise stable, 07/26/2022, patient seen eval examined during the rounds labs reviewed medications reviewed care plan discussed, Estrace status remains stable denies any chest pain, however does have bloating sensation, some nauseous intermittent feeling, currently feels better, chest pain is improved, breathing more comfortably, hemodynamically patient is stable afebrile with oxygen saturation 98% room air, hemodynamically stable blood pressure is 1:30/64 07/25/2022, patient seen eval examined during the rounds labs reviewed medications reviewed, chest x-ray performed today reviewed him a bibasilar atelectasis along with possible pneumonia present, patient afebrile hemodynamically stable oxygen saturation is 96% on 2 L. Labs reviewed hemoglobin and hematocrit 7.6/24.7, BUN/creatinine 57/4.8 07/24/2022, patient seen and evaluated examined postop day #1 of laparoscopic cholecystectomy by Dr. Rodgers is overall doing well, passing gas from below, respirations stable, denies any chest pain, pleuritic chest pain noted previously have improved though, 07/22/2022, patient breathing K more comfortably, still have intermittent cough and sputum production, no night sweats fever or chills present, abdominal pain appears to be slightly better, patient has been evaluated by nephrology for acute tubular necrosis thought to be related to hypertension with concomitant use of Cozaar currently to 4.6 now R inhibitor and hold and patient has been g ently rehydrated, patient has been on Zosyn for pneumonia as well as the acute cholecystitis being planned for surgery early next week 07/21/2022, patient seen eval reexamined during the rounds labs reviewed medications reviewed care plan discussed, respiratory status continued to improve however still cough congestion and yellowish sputum production is present, blood cultures no growth, patient remains on broad-spectrum antibiotic for left lower lobe pneumonia patient has a component of pleuritic chest pain, responded well with pain medicine, patient has been evaluated by surgical services for cholecystitis, patient is scheduled for cholecystectomy early next week 07/20/2022, patient seen and evaluated examined, cough congestion slightly improved still however producing greenish sputum, sputum cultures are pending however blood cultures have been negative so far. Patient is status post HIDA scan that will not visualized likely related to cystic-type obstruction or cholecystitis, general surgery have been consulted to labs from today reviewed white cell count is 14.74, hemoglobin and hematocrit 8.9/27, BUN/creatinine 45.9/2.5 blood sugar mostly higher than 300 range Patient is a 66-year-old female came into the hospital with a developing right upper quadrant pain along with nausea and vomiting started 1 day prior to coming to the hospital, ongoing intermittent diarrhea present as well, denies any fever or chills so throat has some problems with cough and shortness of breath as well. Her past medical history significant for diabetes dyslipidemia hypertension hypertensive cardiovascular disease hypothyroidism, chronic neuropathy and leg edema, status post AICD, coronary artery disease status post CABG 3 and placement for ischemic cardiomyopathy with AICD, status post left BKA, labs reviewed CBC within normal limit BUN/creatinine 48/2.01 blood sugar is 340. Computed tomography scan of the chest positive for left lower lobe consolidation along with trace pleural effusion consistent with pneumonia evidence of cholelithiasis seen as well. Currently patient is on IV Rocephin along with continuation of home medications Objective - Vital Signs Vital signs: Vital Signs Temp 97.9 F 07/27/22 13:35 Pulse 72 07/27/22 15:55 Resp 18 07/27/22 13:35 BP 161/68 07/27/22 13:35 Pulse Ox 97 07/27/22 13:35 FiO2 Intake & Output 07/26/22 07/27/22 07/27/22 18:59 06:59 18:59 Intake Total 240 Output Total 239 036 6157 Balance -170 -700 900 Weight 90.718 kg Intake: Oral 240 Output: Urine 322 877 6472 Other: Voiding Method Bedpan Indwelling Catheter Indwelling Catheter Indwelling Catheter # Voids 1 # Bowel Movements 1 2 1 - Exam - Constitutional General appearance: average body habitus, disheveled - EENT Eyes: EOMI, PERRLA ENT: normal oropharynx Ears: bilateral: normal - Neck Carotids: bilateral: upstroke normal Thyroid: bilateral: normal size - Respiratory Respiratory: bilateral: CTA - Cardiovascular Rhythm: regular Heart sounds: normal: S1, S2 - Gastrointestinal General gastrointestinal: decreased bowel sounds, soft - Integumentary Integumentary: normal turgor - Neurologic Neurologic: CNII-XII intact - Musculoskeletal Musculoskeletal: generalized weakness, strength equal bilaterally - Psychiatric Psychiatric: A&O x's 3, appropriate affect, intact judgment & insight - Labs CBC & Chem 7: 07/27/22 05:44 07/27/22 05:44 Labs: Abnormal Lab Results - Last 24 Hours (Table) 07/26/22 07/27/22 07/27/22 Range/Units 20:45 02:45 05:44 WBC 11.65 H (4.50-10.00) X 10*3/uL RBC 2.64 L (4.40-5.60) X 10*6/uL Hgb 7.6 L (13.0-17.0) g/dL Hct 24.0 L (39.6-50.0) % MCHC 31.7 L (32.0-37.0) g/dL RDW 15.7 H (11.5-14.5) % Carbon Dioxide (20.0-27.5) mmol/L BUN (9.0-27.0) mg/dL Creatinine (0.6-1.5) mg/dL Est GFR (CKD-EPI)AfAm (60.0-200.0) Est GFR (CKD-EPI)NonAf (60.0-200.0) BUN/Creatinine Ratio (12.00-20.00) Ratio Glucose (70-110) mg/dL POC Glucose (mg/dL) 166 H 150 H (70-110) mg/dL Calcium (8.7-10.3) mg/dL 07/27/22 07/27/22 07/27/22 Range/Units 05:44 06:30 11:42 WBC (4.50-10.00) X 10*3/uL RBC (4.40-5.60) X 10*6/uL Hgb (13.0-17.0) g/dL Hct (39.6-50.0) % MCHC (32.0-37.0) g/dL RDW (11.5-14.5) % Carbon Dioxide 19.3 L (20.0-27.5) mmol/L BUN 66.1 H (9.0-27.0) mg/dL Creatinine 5.9 H (0.6-1.5) mg/dL Est GFR (CKD-EPI)AfAm 10.8 L (60.0-200.0) Est GFR (CKD-EPI)NonAf 9.3 L (60.0-200.0) BUN/Creatinine Ratio 11.30 L (12.00-20.00) Ratio Glucose 134 H (70-110) mg/dL POC Glucose (mg/dL) 146 H 130 H (70-110) mg/dL Calcium 7.8 L (8.7-10.3) mg/dL Assessment and Plan Assessment: Left lower lobe community-acquired pneumonia, on Zosyn we'll continue Acute cholecystitis, surgery on consult, status post cholecystectomy laparoscopy overall recovering slowly Acute kidney disease, with worsening of renal functions, nephrology is following Anitra as well as No on hold, renal functions steadily getting worse, nephrology is thinking about hemodialysis, family undecided but may go for it Coronary artery disease ischemic cardiomyopathy, continuation of home medications Diabetes mellitus uncontrolled with hyperglycemia continue sliding scale insulin and home medications Plan: As above Time with Patient: Greater than 30
[2022-07-27] MEDS: TAMSULOSIN 0.4 MG CAP.ER.24H PO SCH (17:34)
[2022-07-27 17:45] LABS: Glucose,Whole Blood 113 mg/dL (70-110)
[2022-07-27 21:02] LABS: Glucose,Whole Blood 150 mg/dL (70-110)
[2022-07-27] MEDS: INSULIN DETEMIR (LEVEMIR) 100 UNIT/ML SYR SQ SCH (21:23)
[2022-07-28] MEDS: INSULIN ASPART (NovoLOG) 100 UNIT/ML VIAL SQ SCH ×4 (06:07→21:02)
[2022-07-28 06:08] LABS: Glucose,Whole Blood 83 mg/dL (70-110)
[2022-07-28] MEDS: LEVOTHYROXINE 125 MCG TAB PO SCH (06:09)
[2022-07-28 07:39] LABS: Glucose,Whole Blood 84 mg/dL (70-110)
[2022-07-28 07:58] LABS: African American GFR (CKD) 12 (>60 ml/min/1.73 sqM); Anion Gap 12 mmol/L; Blood Urea Nitrogen 64 mg/dL (9-20); Calcium 8.1 mg/dL (8.4-10.2); Carbon Dioxide 25 mmol/L (22-30); Chloride 103 mmol/L (98-107); Glucose 79 mg/dL (74-99); Magnesium 1.8 mg/dL (1.6-2.3); Non-African American GFR(CKD) 10 (>60 ml/min/1.73 sqM); Potassium 3.8 mmol/L (3.5-5.1); Sodium 140 mmol/L (137-145)
[2022-07-28] MEDS: FENOFIBRATE 160 MG TAB PO SCH (08:24)
[2022-07-28] MEDS: SODIUM BICARBONATE TAB 650 MG TAB PO SCH ×3 (08:24→21:08)
[2022-07-28] MEDS: PANTOPRAZOLE 40 MG TABLET PO SCH (08:25)
[2022-07-28] MEDS: METOPROLOL TARTRATE 25 MG TAB PO SCH ×3 (08:25→21:08)
[2022-07-28] MEDS: ATORVASTATIN 40 MG TAB PO SCH (08:25)
[2022-07-28] MEDS: amLODIPine 5 MG TAB PO SCH (08:25)
[2022-07-28] MEDS: ASPIRIN 81 MG PO SCH (08:25)
[2022-07-28] MEDS: FUROSEMIDE 10 MG/ML 4 ML VIAL IV SCH ×2 (08:25→21:08)
[2022-07-28] MEDS: FOLIC ACID 1 MG TAB PO SCH (08:25)
[2022-07-28] MEDS: HEPARIN SODIUM,PORCINE/PF 5,000 UNIT/0.5 ML SYRINGE SQ SCH ×2 (08:34→21:08)
[2022-07-28] MEDS: PIPERACILLIN-TAZOBACTAM 3.375 GM in SODIUM CHLORIDE 0.9% 100 ML IVPB SCH ×2 (10:20→23:52)
--- NOTE | 2022-07-28 11:33 | P.PN ---
Subjective Patient is seen in follow-up for acute kidney injury. Renal function worsening the last few days. Creatinine decreased to 5.4 today. On IV Lasix. Nonoliguric. Has Armenta catheter for urinary retention. Nonoliguric. Oral intake fair. Blood pressure not low. Vomited 1 today Objective - Vital Signs Vital signs: Vital Signs Temp 98.5 F 07/28/22 08:00 Pulse 70 07/28/22 08:00 Resp 18 07/28/22 08:00 BP 152/76 07/28/22 08:00 Pulse Ox 94 L 07/28/22 08:00 FiO2 Intake & Output 07/27/22 07/28/22 07/28/22 18:59 06:59 18:59 Intake Total 950 120 Output Total 1140 1640 Balance -190 -1640 120 Weight 90.718 kg Intake: Oral 950 120 Output: Urine 1140 1640 Other: Voiding Method Indwelling Catheter Indwelling Catheter # Voids 1 0 # Bowel Movements 1 2 - Exam Awake, comfortable, in no acute distress Examination of the heart S1 and S2 Examination of the lungs bilateral breath sounds are heard Abdomen is soft nontender Examination lower extremity shows no significant edema. Bilateral BKA - Labs CBC & Chem 7: 07/27/22 05:44 07/28/22 06:42 Labs: Abnormal Lab Results - Last 24 Hours (Table) 07/27/22 07/27/22 07/27/22 Range/Units 11:42 17:44 21:01 BUN (9-20) mg/dL Creatinine (0.66-1.25) mg/dL POC Glucose (mg/dL) 130 H 113 H 150 H (70-110) mg/dL Calcium (8.4-10.2) mg/dL 07/28/22 Range/Units 06:42 BUN 64 H (9-20) mg/dL Creatinine 5.46 H (0.66-1.25) mg/dL POC Glucose (mg/dL) (70-110) mg/dL Calcium 8.1 L (8.4-10.2) mg/dL Assessment and Plan Assessment: 1. Acute kidney injury secondary to ATN secondary to hypotension and further worsened with the use of Cozaar and Kerendia. Creatinine was 2 on admission and is up to 5.4 today. No hydronephrosis noted on CAT scan. Creatinine in February 2021 was as low as 1.0. 2. Hyponatremia secondary to acute kidney injury. Improved. Stable today. 3. Metabolic acidosis secondary to acute kidney injury and IV fluids. On oral bicarbonate. 4. Pneumonia maintained on antibiotics. 5. Gallstones with concern for cholecystitis been followed by surgery. Status post cholecystectomy 07/23/2022. 6. Diabetes mellitus. 7. Hypertension with chronic kidney disease. 8. Anemia. Iron deficiency noted. On Aranesp. s/p IV iron. 9. History of coronary disease status post cardiac stenting and CABG. 10. Rule out chronic disease. Patient does have 1+ proteinuria which is most likely secondary to underlying diabetic kidney disease. 11. Hypomagnesemia from poor intake. Replaced. Better. 12. Urinary retention. Armenta catheter placed. On Flomax. Urology following. 13. Volume overload. Plan: Patient is reluctant for renal replacement therapy. Serum creatinine has improved today. We will continue to monitor for now. No urgent indication for dialysis today.
--- NOTE | 2022-07-28 14:26 | P.PN ---
Subjective Progress Note Date: 07/28/22 Principal diagnosis: Left lower lobe community-acquired pneumonia, on Rocephin we'll continue Acute kidney disease, transient renal function and monitor electrolytes closely Coronary artery disease ischemic cardiomyopathy, continuation of home medications Diabetes mellitus uncontrolled with hyperglycemia continue sliding scale insulin and home medications 07/28/2022, patient seen and evaluated examined during the rounds labs reviewed medications reviewed sister is accompanied by patient, chest pain and cough slightly better but is still present patient get short of breath on activity and exertion bloating sensation is much better, hemodynamically patient is stable remains afebrile, blood pressure is 1:30/73 saturations 98%, BUN/creatinine 64/5.46, slight improvement noted from yesterday patient has been making more urine now 07/27/2022, patient seen eval examined during rounds labs reviewed medications reviewed remains on IV antibiotics for pneumonia cough is stable but is still short of breath, labs from today reviewed CBC within normal limit hemoglobin 7.6 which is stable, sodium 135, anion gap increases 17, BUN/creatinine continue to go up 66/5.9 GFR is 9.3 slowly declining patient is being followed by nephrology, patient has been having some bloating sensation which is otherwise stable, 07/26/2022, patient seen eval examined during the rounds labs reviewed medications reviewed care plan discussed, Estrace status remains stable denies any chest pain, however does have bloating sensation, some nauseous intermittent feeling, currently feels better, chest pain is improved, breathing more comfortably, hemodynamically patient is stable afebrile with oxygen saturation 98% room air, hemodynamically stable blood pressure is 1:30/64 07/25/2022, patient seen eval examined during the rounds labs reviewed medications reviewed, chest x-ray performed today reviewed him a bibasilar atelectasis along with possible pneumonia present, patient afebrile he modynamically stable oxygen saturation is 96% on 2 L. Labs reviewed hemoglobin and hematocrit 7.6/24.7, BUN/creatinine 57/4.8 07/24/2022, patient seen and evaluated examined postop day #1 of laparoscopic cholecystectomy by Dr. Rodgers is overall doing well, passing gas from below, respirations stable, denies any chest pain, pleuritic chest pain noted previously have improved though, 07/22/2022, patient breathing K more comfortably, still have intermittent cough and sputum production, no night sweats fever or chills present, abdominal pain appears to be slightly better, patient has been evaluated by nephrology for acute tubular necrosis thought to be related to hypertension with concomitant use of Cozaar currently to 4.6 now R inhibitor and hold and patient has been gently rehydrated, patient has been on Zosyn for pneumonia as well as the acute cholecystitis being planned for surgery early next week 07/21/2022, patient seen eval reexamined during the rounds labs reviewed medications reviewed care plan discussed, respiratory status continued to improve however still cough congestion and yellowish sputum production is present, blood cultures no growth, patient remains on broad-spectrum antibiotic for left lower lobe pneumonia patient has a component of pleuritic chest pain, responded well with pain medicine, patient has been evaluated by surgical services for cholecystitis, patient is scheduled for cholecystectomy early next week 07/20/2022, patient seen and evaluated examined, cough congestion slightly improved still however producing greenish sputum, sputum cultures are pending however blood cultures have been negative so far. Patient is status post HIDA scan that will not visualized likely related to cystic-type obstruction or cholecystitis, general surgery have been consulted to labs from today reviewed white cell count is 14.74, hemoglobin and hematocrit 8.9/27, BUN/creatinine 45.9/2.5 blood sugar mostly higher than 300 range Patient is a 66-year-old female came into the hospital with a developing right upper quadrant pain along with nausea and vomiting started 1 day prior to coming to the hospital, ongoing intermittent diarrhea present as well, denies any fever or chills so throat has some problems with cough and shortness of breath as well. Her past medical history significant for diabetes dyslipidemia hypertension hypertensive cardiovascular disease hypothyroidism, chronic neuropathy and leg edema, status post AICD, coronary artery disease status post CABG 3 and placement for ischemic cardiomyopathy with AICD, status post left BKA, labs reviewed CBC within normal limit BUN/creatinine 48/2.01 blood sugar is 340. Computed tomography scan of the chest positive for left lower lobe consolidation along with trace pleural effusion consistent with pneumonia evidence of cholelithiasis seen as well. Currently patient is on IV Rocephin along with continuation of home medications Objective - Vital Signs Vital signs: Vital Signs Temp 98.2 F 07/28/22 13:48 Pulse 65 07/28/22 13:48 Resp 18 07/28/22 13:48 BP 130/73 07/28/22 13:48 Pulse Ox 98 07/28/22 13:48 FiO2 Intake & Output 07/27/22 07/28/22 07/28/22 18:59 06:59 18:59 Intake Total 950 240 Output Total 1140 1640 800 Balance -190 -1640 -560 Weight 90.718 kg Intake: Oral 950 240 Output: Urine 1140 1640 800 Other: Voiding Method Indwelling Catheter Indwelling Catheter # Voids 1 0 # Bowel Movements 1 2 - Exam - Constitutional General appearance: average body habitus, disheveled - EENT Eyes: EOMI, PERRLA ENT: normal oropharynx Ears: bilateral: normal - Neck Carotids: bilateral: upstroke normal Thyroid: bilateral: normal size - Respiratory Respiratory: bilateral: CTA - Cardiovascular Rhythm: regular Heart sounds: normal: S1, S2 - Gastrointestinal General gastrointestinal: decreased bowel sounds, soft - Integumentary Integumentary: normal turgor - Neurologic Neurologic: CNII-XII intact - Musculoskeletal Musculoskeletal: generalized weakness, strength equal bilaterally - Psychiatric Psychiatric: A&O x's 3, appropriate affect, intact judgment & insight - Labs CBC & Chem 7: 07/27/22 05:44 07/28/22 06:42 Labs: Abnormal Lab Results - Last 24 Hours (Table) 07/27/22 07/27/22 07/28/22 Range/Units 17:44 21:01 06:42 BUN 64 H (9-20) mg/dL Creatinine 5.46 H (0.66-1.25) mg/dL POC Glucose (mg/dL) 113 H 150 H (70-110) mg/dL Calcium 8.1 L (8.4-10.2) mg/dL Assessment and Plan Assessment: Left lower lobe community-acquired pneumonia, on Zosyn we'll continue Acute cholecystitis, surgery on consult, status post cholecystectomy laparoscopy overall recovering slowly Acute kidney disease, with worsening of renal functions, nephrology is following Anitra as well as Ricardoia on hold, renal functions steadily getting worse, however since yesterday numbers slightly appear better with better urine output Coronary artery disease ischemic cardiomyopathy, continuation of home medications Diabetes mellitus uncontrolled with hyperglycemia continue sliding scale insulin and home medications Plan: As above Time with Patient: Greater than 30
--- NOTE | 2022-07-28 14:35 | PN ---
PROGRESS NOTE DATE OF SERVICE: 07/27/2022 SUBJECTIVE: A 66-year-old white male with worsening renal failure with BUN into the 60s and creatinine in the mid 5s. The patient refused dialysis, he is being treated for pneumonia. He is stable. He has been constipated in last few days for which bowel medications for constipation have been used. GFR is 9.3, declining some bloating sensation. He had a Armenta catheter and increased Lasix due to CHF per Renal yesterday up to 40 b.i.d., white count 14.1. OBJECTIVE: CARDIOVASCULAR: Clear. HEART: S1, S2. ABDOMEN: Soft. NEUROLOGIC: Cranial nerves intact. EXTREMITIES: He has BKA bilaterally. PSYCH: Nerves normal. ASSESSMENT: Left lower lobe community-acquired pneumonia, on Zosyn. Acute cholecystitis, surgeon consulted, status post cholecystectomy, laparoscopy overly, recovering well; acute kidney disease, worsening renal functions, unclear etiology; coronary artery disease; ischemic cardiomyopathy; diabetes mellitus; hyperglycemia. Wait for Renal physicians opinion. Continue postop gallbladder surgery. Broad-spectrum antibiotics. Monitor kidney function. The patient refused dialysis catheter at this point. MMODL / IJN: [id number] /
[2022-07-28 17:05] LABS: Glucose,Whole Blood 106 mg/dL (70-110)
[2022-07-28] MEDS: TAMSULOSIN 0.4 MG CAP.ER.24H PO SCH (18:04)
[2022-07-28] MEDS: LACTATED RINGERS 1,000 ML IV SCH (18:04)
[2022-07-28 21:02] LABS: Glucose,Whole Blood 118 mg/dL (70-110)
[2022-07-28] MEDS: INSULIN DETEMIR (LEVEMIR) 100 UNIT/ML SYR SQ SCH (21:02)
[2022-07-29 06:42] LABS: Glucose,Whole Blood 150 mg/dL (70-110)
[2022-07-29] MEDS: INSULIN ASPART (NovoLOG) 100 UNIT/ML VIAL SQ SCH ×4 (06:42→21:49)
[2022-07-29] MEDS: LEVOTHYROXINE 125 MCG TAB PO SCH (06:44)
--- NOTE | 2022-07-29 07:38 | P.PN ---
Subjective Progress Note Date: 07/29/22 Principal diagnosis: Left lower lobe community-acquired pneumonia, on Rocephin we'll continue Acute kidney disease, transient renal function and monitor electrolytes closely Coronary artery disease ischemic cardiomyopathy, continuation of home medications Diabetes mellitus uncontrolled with hyperglycemia continue sliding scale insulin and home medications 07/29/2022, patient seen and evaluated examined shortness of breath still present but severity has improved less cough congestion is present denies any chest pain breathing lifting more comfortably, patient remains on broad-spectrum antibiotics tolerating very well intermittent bloating sensation are present, labs from today not back at, patient remains afebrile with T-max 98 respiratory rate 16 blood pressure 136/67 oxygen saturation is 97-98% on 2 L oxygen, and this morning blood glucose 150, patient remains on Zosyn 07/28/2022, patient seen and evaluated examined during the rounds labs reviewed medications reviewed sister is accompanied by patient, chest pain and cough slightly better but is still present patient get short of breath on activity and exertion bloating sensation is much better, hemodynamically patient is stable remains afebrile, blood pressure is 1:30/73 saturations 98%, BUN/creatinine 6 4/5.46, slight improvement noted from yesterday patient has been making more urine now 07/27/2022, patient seen eval examined during rounds labs reviewed medications reviewed remains on IV antibiotics for pneumonia cough is stable but is still short of breath, labs from today reviewed CBC within normal limit hemoglobin 7.6 which is stable, sodium 135, anion gap increases 17, BUN/creatinine continue to go up 66/5.9 GFR is 9.3 slowly declining patient is being followed by nephrology, patient has been having some bloating sensation which is otherwise stable, 07/26/2022, patient seen eval examined during the rounds labs reviewed medications reviewed care plan discussed, Estrace status remains stable denies any chest pain, however does have bloating sensation, some nauseous intermittent feeling, currently feels better, chest pain is improved, breathing more comfortably, hemodynamically patient is stable afebrile with oxygen saturation 98% room air, hemodynamically stable blood pressure is 1:30/64 07/25/2022, patient seen eval examined during the rounds labs reviewed medications reviewed, chest x-ray performed today reviewed him a bibasilar atelectasis along with possible pneumonia present, patient afebrile hemodynamically stable oxygen saturation is 96% on 2 L. Labs reviewed hemog lobin and hematocrit 7.6/24.7, BUN/creatinine 57/4.8 07/24/2022, patient seen and evaluated examined postop day #1 of laparoscopic cholecystectomy by Dr. Rodgers is overall doing well, passing gas from below, respirations stable, denies any chest pain, pleuritic chest pain noted previously have improved though, 07/22/2022, patient breathing K more comfortably, still have intermittent cough and sputum production, no night sweats fever or chills present, abdominal pain appears to be slightly better, patient has been evaluated by nephrology for acute tubular necrosis thought to be related to hypertension with concomitant use of Cozaar currently to 4.6 now R inhibitor and hold and patient has been gently rehydrated, patient has been on Zosyn for pneumonia as well as the acute cholecystitis being planned for surgery early next week 07/21/2022, patient seen eval reexamined during the rounds labs reviewed medications reviewed care plan discussed, respiratory status continued to improve however still cough congestion and yellowish sputum production is present, blood cultures no growth, patient remains on broad-spectrum antibiotic for left lower lobe pneumonia patient has a component of pleuritic chest pain, responded well with pain medicine, patient has been evaluated by surgical serv ices for cholecystitis, patient is scheduled for cholecystectomy early next week 07/20/2022, patient seen and evaluated examined, cough congestion slightly improved still however producing greenish sputum, sputum cultures are pending however blood cultures have been negative so far. Patient is status post HIDA scan that will not visualized likely related to cystic-type obstruction or cholecystitis, general surgery have been consulted to labs from today reviewed white cell count is 14.74, hemoglobin and hematocrit 8.9/27, BUN/creatinine 45.9/2.5 blood sugar mostly higher than 300 range Patient is a 66-year-old female came into the hospital with a developing right upper quadrant pain along with nausea and vomiting started 1 day prior to coming to the hospital, ongoing intermittent diarrhea present as well, denies any fever or chills so throat has some problems with cough and shortness of breath as well. Her past medical history significant for diabetes dyslipidemia hypertension hypertensive cardiovascular disease hypothyroidism, chronic neuropathy and leg edema, status post AICD, coronary artery disease status post CABG 3 and placement for ischemic cardiomyopathy with AICD, status post left BKA, labs reviewed CBC within normal limit BUN/creatinine 48/2.01 blood sugar is 340. Computed tomography scan of the chest positive for left lower lobe consolidation along with trace pleural effusion consistent with pneumonia evidence of cholelithiasis seen as well. Currently patient is on IV Rocephin along with continuation of home medications Objective - Vital Signs Vital signs: Vital Signs Temp 98.2 F 07/29/22 02:48 Pulse 68 07/29/22 02:48 Resp 16 07/29/22 02:48 BP 136/67 07/29/22 02:48 Pulse Ox 97 07/29/22 02:48 FiO2 Intake & Output 07/28/22 07/29/22 07/29/22 18:59 06:59 18:59 Intake Total 480 Output Total 800 425 Balance -320 -425 Intake: Oral 480 Output: Urine 800 425 Other: Voiding Method Indwelling Catheter # Voids 0 1 # Bowel Movements 1 - Exam - Constitutional General appearance: average body habitus, disheveled - EENT Eyes: EOMI, PERRLA ENT: normal oropharynx Ears: bilateral: normal - Neck Carotids: bilateral: upstroke normal Thyroid: bilateral: normal size - Respiratory Respiratory: bilateral: CTA - Cardiovascular Rhythm: regular Heart sounds: normal: S1, S2 - Gastrointestinal General gastrointestinal: decreased bowel sounds, soft - Integumentary Integumentary: normal turgor - Neurologic Neurologic: CNII-XII intact - Musculoskeletal Musculoskeletal: generalized weakness, strength equal bilaterally - Psychiatric Psychiatric: A&O x's 3, appropriate affect, intact judgment & insight - Labs CBC & Chem 7: 07/27/22 05:44 07/28/22 06:42 Labs: Abnormal Lab Results - Last 24 Hours (Table) 07/28/22 07/28/22 07/29/22 Range/Units 06:42 21:00 06:40 BUN 64 H (9-20) mg/dL Creatinine 5.46 H (0.66-1.25) mg/dL POC Glucose (mg/dL) 118 H 150 H (70-110) mg/dL Calcium 8.1 L (8.4-10.2) mg/dL Assessment and Plan Assessment: Left lower lobe community-acquired pneumonia, on Zosyn we'll continue, however can be switched to oral in next 24-48 hours Acute cholecystitis, surgery on consult, status post cholecystectomy laparoscopy overall recovering slowly Acute kidney disease, with worsening of renal functions, nephrology is following Anitra as well as No on hold, renal functions steadily getting worse, however since yesterday numbers slightly appear better with better urine output awaiting today's labs Coronary artery disease ischemic cardiomyopathy, continuation of home medications Diabetes mellitus uncontrolled with hyperglycemia continue sliding scale insulin and home medications We will sign off Plan: As above Time with Patient: Greater than 30
[2022-07-29 08:42] LABS: Glucose,Whole Blood 163 mg/dL (70-110)
[2022-07-29] MEDS: ATORVASTATIN 40 MG TAB PO SCH (09:07)
[2022-07-29] MEDS: amLODIPine 5 MG TAB PO SCH (09:07)
[2022-07-29] MEDS: FUROSEMIDE 10 MG/ML 4 ML VIAL IV SCH ×2 (09:07→21:48)
[2022-07-29] MEDS: FENOFIBRATE 160 MG TAB PO SCH (09:07)
[2022-07-29] MEDS: FOLIC ACID 1 MG TAB PO SCH (09:07)
[2022-07-29] MEDS: METOPROLOL TARTRATE 25 MG TAB PO SCH ×3 (09:07→21:49)
[2022-07-29] MEDS: SODIUM BICARBONATE TAB 650 MG TAB PO SCH ×3 (09:07→21:49)
[2022-07-29] MEDS: HEPARIN SODIUM,PORCINE/PF 5,000 UNIT/0.5 ML SYRINGE SQ SCH ×2 (09:08→21:50)
[2022-07-29] MEDS: ASPIRIN 81 MG PO SCH (09:08)
[2022-07-29] MEDS: PANTOPRAZOLE 40 MG TABLET PO SCH (09:08)
[2022-07-29 11:17] LABS: Basophils # (A) 0.07 X 10*3/uL (0.00-0.10); Basophils % (A) 0.5 %; Eosinophils # (A) 0.32 X 10*3/uL (0.04-0.35); Eosinophils % (A) 2.4 %; HCT 24.2 % (39.6-50.0); HGB 7.5 g/dL (13.0-17.0); Immature Grans, Automated 2.4 %; Lymphocytes # (A) 1.09 X 10*3/uL (0.90-5.00); Lymphocytes % (A) 8.2 %; MCH 28.2 pg (27.0-32.0); Mean Platelet Volume 9.7 fL (9.5-12.2); Monocytes # (A) 0.91 X 10*3/uL (0.20-1.00); Monocytes % (A) 6.8 %; NRBC Per 100 WBC 0 /100 WBCS (0.0-0.0); Neutrophils # (A) 10.59 X 10*3/uL (1.80-7.70); Neutrophils % (A) 79.7 %; Platelet Count 339 X 10*3/uL (140-440); RBC 2.66 X 10*6/uL (4.40-5.60); RDW 15.6 % (11.5-14.5)
[2022-07-29] MEDS: PIPERACILLIN-TAZOBACTAM 3.375 GM in SODIUM CHLORIDE 0.9% 100 ML IVPB SCH ×2 (11:19→21:59)
--- NOTE | 2022-07-29 11:22 | P.PN ---
Subjective Patient is seen in follow-up for acute kidney injury. Renal function was worsening the last few days. Creatinine decreased to 5.4 today. On IV Lasix. Nonoliguric. Has Armenta catheter for urinary retention. Nonoliguric. Oral intake fair. Blood pressure not low. Nausea has improved. Labs pending from today. Objective - Vital Signs Vital signs: Vital Signs Temp 98.2 F 07/29/22 02:48 Pulse 68 07/29/22 08:00 Resp 16 07/29/22 08:00 BP 136/67 07/29/22 02:48 Pulse Ox 97 07/29/22 02:48 FiO2 Intake & Output 07/28/22 07/29/22 07/29/22 18:59 06:59 18:59 Intake Total 480 200 Output Total 800 425 Balance -320 -425 200 Intake: Oral 480 200 Output: Urine 800 425 Other: Voiding Method Indwelling Catheter Indwelling Catheter # Voids 0 1 # Bowel Movements 1 - Exam Awake, comfortable, in no acute distress Examination of the heart S1 and S2 Examination of the lungs bilateral breath sounds are heard Abdomen is soft nontender Examination lower extremity shows no significant edema. Bilateral BKA - Labs CBC & Chem 7: 07/29/22 07:43 07/28/22 06:42 Labs: Abnormal Lab Results - Last 24 Hours (Table) 07/28/22 07/29/22 07/29/22 Range/Units 21:00 06:40 07:43 WBC 13.30 H (4.50-10.00) X 10*3/uL RBC 2.66 L (4.40-5.60) X 10*6/uL Hgb 7.5 L (13.0-17.0) g/dL Hct 24.2 L (39.6-50.0) % MCHC 31.0 L (32.0-37.0) g/dL RDW 15.6 H (11.5-14.5) % Immature Gran # 0.32 H (0.00-0.04) X 10*3/uL Neutrophils # 10.59 H (1.80-7.70) X 10*3/uL POC Glucose (mg/dL) 118 H 150 H (70-110) mg/dL 07/29/22 Range/Units 08:21 WBC (4.50-10.00) X 10*3/uL RBC (4.40-5.60) X 10*6/uL Hgb (13.0-17.0) g/dL Hct (39.6-50.0) % MCHC (32.0-37.0) g/dL RDW (11.5-14.5) % Immature Gran # (0.00-0.04) X 10*3/uL Neutrophils # (1.80-7.70) X 10*3/uL POC Glucose (mg/dL) 163 H (70-110) mg/dL Assessment and Plan Assessment: 1. Acute kidney injury secondary to ATN secondary to hypotension and further worsened with the use of Cozaar and Kerendia. Creatinine was 2 on admission and was down to 5.4 yesterday. No hydronephrosis noted on CAT scan. Creatinine in February 2021 was as low as 1.0. 2. Hyponatremia secondary to acute kidney injury. Improved. Stable today. 3. Metabolic acidosis secondary to acute kidney injury and IV fluids. On oral bicarbonate. 4. Pneumonia maintained on antibiotics. 5. Gallstones with concern for cholecystitis been followed by surgery. Status post cholecystectomy 07/23/2022. 6. Diabetes mellitus. 7. Hypertension with chronic kidney disease. 8. Anemia. Iron deficiency noted. On Aranesp. s/p IV iron. 9. History of coronary disease status post cardiac stenting and CABG. 10. Rule out chronic disease. Patient does have 1+ proteinuria which is most likely secondary to underlying diabetic kidney disease. 11. Hypomagnesemia from poor intake. Replaced. Better. 12. Urinary retention. Armenta catheter placed. On Flomax. Urology following. 13. Volume overload. Plan: Patient is reluctant for renal replacement therapy. Serum creatinine had improved yesterday. We will continue to monitor for now. No urgent indication for dialysis today. Repeat labs today and again in a.m. Continue with Armenta catheter
--- NOTE | 2022-07-29 11:29 | P.PN ---
Progress Note - Text Progress Note Date: 07/29/22 The patient's creatinine level is stable at 5.46. The Armenta catheter is draining clear yellow urine. He has no complaints at this time. I will suggest that the catheter remain in place at this time to optimize his renal function.
[2022-07-29 12:01] LABS: Glucose,Whole Blood 199 mg/dL (70-110)
[2022-07-29 12:23] LABS: African American GFR (CKD) 13.7 (60.0-200.0); Albumin 2.4 g/dL (3.8-4.9); Albumin/Globulin Ratio 0.8 (1.60-3.17); Anion Gap 16.4 mmol/L (10.00-18.00); BUN/Creat Ratio 12.79 Ratio (12.00-20.00); Blood Urea Nitrogen 61.4 mg/dL (9.0-27.0); Calcium 8.1 mg/dL (8.7-10.3); Carbon Dioxide 22.6 mmol/L (20.0-27.5); Non-African American GFR(CKD) 11.8 (60.0-200.0); Potassium 3.8 mmol/L (3.5-5.5); Total Bilirubin 0.3 mg/dL (0.30-1.20); Total Protein 5.4 g/dL (6.2-8.2)
[2022-07-29] MEDS: LACTATED RINGERS 1,000 ML IV SCH (16:38)
[2022-07-29 17:17] LABS: Glucose,Whole Blood 285 mg/dL (70-110)
[2022-07-29] MEDS: TAMSULOSIN 0.4 MG CAP.ER.24H PO SCH (17:50)
[2022-07-29 21:26] LABS: Glucose,Whole Blood 295 mg/dL (70-110)
[2022-07-29] MEDS: HYDROmorphone 0.5 MG/0.5 ML SYRINGE IVP PRN (21:48)
[2022-07-29] MEDS: INSULIN DETEMIR (LEVEMIR) 100 UNIT/ML SYR SQ SCH (21:50)
[2022-07-30] MEDS: LEVOTHYROXINE 125 MCG TAB PO SCH (06:48)
[2022-07-30] MEDS: INSULIN ASPART (NovoLOG) 100 UNIT/ML VIAL SQ SCH ×4 (06:52→21:38)
[2022-07-30 06:53] LABS: Glucose,Whole Blood 235 mg/dL (70-110)
[2022-07-30 07:36] LABS: Glucose,Whole Blood 224 mg/dL (70-110)
[2022-07-30] MEDS: FOLIC ACID 1 MG TAB PO SCH (07:57)
[2022-07-30] MEDS: ATORVASTATIN 40 MG TAB PO SCH (07:57)
[2022-07-30] MEDS: SODIUM BICARBONATE TAB 650 MG TAB PO SCH ×3 (07:57→21:01)
[2022-07-30] MEDS: HEPARIN SODIUM,PORCINE/PF 5,000 UNIT/0.5 ML SYRINGE SQ SCH ×2 (07:57→21:01)
[2022-07-30] MEDS: FENOFIBRATE 160 MG TAB PO SCH (07:58)
[2022-07-30] MEDS: PANTOPRAZOLE 40 MG TABLET PO SCH (07:58)
[2022-07-30] MEDS: ERGOCALCIFEROL 1,250 MCG (50,000 IU) CAPSULE PO SCH (07:58)
[2022-07-30] MEDS: amLODIPine 5 MG TAB PO SCH (07:58)
[2022-07-30] MEDS: ASPIRIN 81 MG PO SCH (07:58)
[2022-07-30] MEDS: METOPROLOL TARTRATE 25 MG TAB PO SCH ×3 (07:58→21:01)
[2022-07-30] MEDS: FUROSEMIDE 10 MG/ML 4 ML VIAL IV SCH ×2 (07:58→21:01)
--- NOTE | 2022-07-30 08:10 | PN ---
PROGRESS NOTE SUBJECTIVE: A 66-year-old white with chronic renal disease of uncertain etiology, with IV Lasix. His creatinine is getting better really now, was 5.77, now is down to 4.8 with BUN of 61. Sugars are in the mid . White count is improved. Albumin is 2.4. OBJECTIVE: CARDIOVASCULAR: S1, S2. LUNGS: Clear. GI: Obese. EXTREMITIES: BKA bilaterally. ASSESSMENT: Status post cholecystectomy with sepsis with acute tubular necrosis, acute renal insufficiency, improving with Lasix. Continue with broad-spectrum antibiotics, Lasix. Monitor renal function. dialysis issues, but his kidney functions improved. Possible home in the next 48 hours as he is improving greatly. MMELÍASL / IJN: [id number] /
[2022-07-30 08:55] LABS: Glucose,Whole Blood 85 mg/dL (70-110)
[2022-07-30 08:55] LABS: Glucose,Whole Blood 86 mg/dL (70-110)
--- NOTE | 2022-07-30 09:14 | P.PN ---
Progress Note - Text Progress Note Date: 07/30/22 Patient seen as a follow up for urinary retention. Armenta catheter remains in place and draining clear davina urine. Nephrology following renal function closely. Recommend leaving Armenta catheter in so bladder can regain its tone, and to maximize renal function. Plan to remove catheter before discharge for voiding trial. Impression and plan of care have been directed as dictated by the signing physician. Susan Segovia nurse practitioner acting as scribe for signing physician. Susan Segovia [facility] Palliative Care/Urology [place] [phone] Email: [email or web address] The patient is seen by me and I concur with Lennox Fuentes
[2022-07-30 09:37] LABS: Basophils # (A) 0.05 X 10*3/uL (0.00-0.10); Basophils % (A) 0.4 %; Eosinophils # (A) 0.37 X 10*3/uL (0.04-0.35); Eosinophils % (A) 3.1 %; HCT 23.5 % (39.6-50.0); HGB 7.3 g/dL (13.0-17.0); Immature Grans, Automated 4.3 %; Lymphocytes # (A) 1.14 X 10*3/uL (0.90-5.00); Lymphocytes % (A) 9.4 %; MCH 27.8 pg (27.0-32.0); MCHC 31.1 g/dL (32.0-37.0); MCV 89.4 fL (80.0-97.0); Mean Platelet Volume 9.5 fL (9.5-12.2); Monocytes # (A) 0.88 X 10*3/uL (0.20-1.00); Monocytes % (A) 7.3 %; NRBC Per 100 WBC 0 /100 WBCS (0.0-0.0); Neutrophils # (A) 9.16 X 10*3/uL (1.80-7.70); Neutrophils % (A) 75.5 %; Platelet Count 335 X 10*3/uL (140-440); RBC 2.63 X 10*6/uL (4.40-5.60); RDW 15.3 % (11.5-14.5); WBC 12.12 X 10*3/uL (4.50-10.00)
[2022-07-30 09:38] LABS: ALT 10 U/L (10-49); AST 19 U/L (14-35); African American GFR (CKD) 15.2 (60.0-200.0); Albumin 2.3 g/dL (3.8-4.9); Albumin/Globulin Ratio 0.77 (1.60-3.17); Alkaline Phosphatase 179 U/L (41-126); BUN/Creat Ratio 13.57 Ratio (12.00-20.00); Blood Urea Nitrogen 59.7 mg/dL (9.0-27.0); Calcium 7.8 mg/dL (8.7-10.3); Carbon Dioxide 28.7 mmol/L (20.0-27.5); Chloride 101 mmol/L (96-109); Glucose 226 mg/dL (70-110); Non-African American GFR(CKD) 13.1 (60.0-200.0); Potassium 3.5 mmol/L (3.5-5.5); Sodium 140 mmol/L (135-145); Total Bilirubin <0.15 mg/dL (0.30-1.20); Total Protein 5.3 g/dL (6.2-8.2)
--- NOTE | 2022-07-30 10:08 | P.PN ---
Subjective Patient is seen in follow-up for acute kidney injury. Renal function was worsening the last few days. Creatinine decreased to 4.8 yesterday. On IV Lasix. Nonoliguric. Has Armenta catheter for urinary retention. Nonoliguric. Oral intake fair. Blood pressure not low. Nausea has improved. Serum creatinine continues to decrease and is down to 4.4 today Objective - Vital Signs Vital signs: Vital Signs Temp 98.3 F 07/30/22 07:35 Pulse 66 07/30/22 08:00 Resp 18 07/30/22 08:00 BP 130/67 07/30/22 07:35 Pulse Ox 97 07/30/22 07:35 FiO2 Intake & Output 07/29/22 07/30/22 07/30/22 18:59 06:59 18:59 Intake Total 680 300 Output Total 900 1000 Balance -220 -1000 300 Intake: Oral 680 300 Output: Urine 900 1000 Other: Voiding Method Indwelling Catheter Indwelling Catheter Indwelling Catheter # Voids 0 - Exam Awake, comfortable, in no acute distress Examination of the heart S1 and S2 Examination of the lungs bilateral breath sounds are heard Abdomen is soft nontender Examination lower extremity shows no significant edema. Bilateral BKA - Labs CBC & Chem 7: 07/30/22 05:35 07/30/22 05:35 Labs: Abnormal Lab Results - Last 24 Hours (Table) 07/29/22 07/29/22 07/29/22 Range/Units 07:43 07:43 11:50 WBC 13.30 H (4.50-10.00) X 10*3/uL RBC 2.66 L (4.40-5.60) X 10*6/uL Hgb 7.5 L (13.0-17.0) g/dL Hct 24.2 L (39.6-50.0) % MCHC 31.0 L (32.0-37.0) g/dL RDW 15.6 H (11.5-14.5) % Immature Gran # 0.32 H (0.00-0.04) X 10*3/uL Neutrophils # 10.59 H (1.80-7.70) X 10*3/uL Eosinophils # (0.04-0.35) X 10*3/uL Carbon Dioxide (20.0-27.5) mmol/L BUN 61.4 H (9.0-27.0) mg/dL Creatinine 4.8 H (0.6-1.5) mg/dL Est GFR (CKD-EPI)AfAm 13.7 L (60.0-200.0) Est GFR (CKD-EPI)NonAf 11.8 L (60.0-200.0) Glucose 154 H (70-110) mg/dL POC Glucose (mg/dL) 199 H (70-110) mg/dL Calcium 8.1 L (8.7-10.3) mg/dL Total Bilirubin (0.30-1.20) mg/dL Alkaline Phosphatase 233 H (41-126) U/L Total Protein 5.4 L (6.2-8.2) g/dL Albumin 2.4 L (3.8-4.9) g/dL Albumin/Globulin Ratio 0.80 L (1.60-3.17) g/dL 07/29/22 07/29/22 07/30/22 Range/Units 17:03 21:24 05:35 WBC 12.12 H (4.50-10.00) X 10*3/uL RBC 2.63 L (4.40-5.60) X 10*6/uL Hgb 7.3 L (13.0-17.0) g/dL Hct 23.5 L (39.6-50.0) % MCHC 31.1 L (32.0-37.0) g/dL RDW 15.3 H (11.5-14.5) % Immature Gran # 0.52 H (0.00-0.04) X 10*3/uL Neutrophils # 9.16 H (1.80-7.70) X 10*3/uL Eosinophils # 0.37 H (0.04-0.35) X 10*3/uL Carbon Dioxide (20.0-27.5) mmol/L BUN (9.0-27.0) mg/dL Creatinine (0.6-1.5) mg/dL Est GFR (CKD-EPI)AfAm (60.0-200.0) Est GFR (CKD-EPI)NonAf (60.0-200.0) Glucose (70-110) mg/dL POC Glucose (mg/dL) 285 H 295 H (70-110) mg/dL Calcium (8.7-10.3) mg/dL Total Bilirubin (0.30-1.20) mg/dL Alkaline Phosphatase (41-126) U/L Total Protein (6.2-8.2) g/dL Albumin (3.8-4.9) g/dL Albumin/Globulin Ratio (1.60-3.17) g/dL 07/30/22 07/30/22 07/30/22 Range/Units 05:35 06:51 07:35 WBC (4.50-10.00) X 10*3/uL RBC (4.40-5.60) X 10*6/uL Hgb (13.0-17.0) g/dL Hct (39.6-50.0) % MCHC (32.0-37.0) g/dL RDW (11.5-14.5) % Immature Gran # (0.00-0.04) X 10*3/uL Neutrophils # (1.80-7.70) X 10*3/uL Eosinophils # (0.04-0.35) X 10*3/uL Carbon Dioxide 28.7 H (20.0-27.5) mmol/L BUN 59.7 H (9.0-27.0) mg/dL Creatinine 4.4 H (0.6-1.5) mg/dL Est GFR (CKD-EPI)AfAm 15.2 L (60.0-200.0) Est GFR (CKD-EPI)NonAf 13.1 L (60.0-200.0) Glucose 226 H (70-110) mg/dL POC Glucose (mg/dL) 235 H 224 H (70-110) mg/dL Calcium 7.8 L (8.7-10.3) mg/dL Total Bilirubin <0.15 L (0.30-1.20) mg/dL Alkaline Phosphatase 179 H (41-126) U/L Total Protein 5.3 L (6.2-8.2) g/dL Albumin 2.3 L (3.8-4.9) g/dL Albumin/Globulin Ratio 0.77 L (1.60-3.17) g/dL Assessment and Plan Assessment: 1. Acute kidney injury secondary to ATN secondary to hypotension and further worsened with the use of Cozaar and Kerendia. Creatinine was 2 on admission and was down to 4.4 today. No hydronephrosis noted on CAT scan. Creatinine in February 2021 was as low as 1.0. 2. Hyponatremia secondary to acute kidney injury. Improved. Stable today. 3. Metabolic acidosis secondary to acute kidney injury and IV fluids. On oral bicarbonate. 4. Pneumonia maintained on antibiotics. 5. Gallstones with concern for cholecystitis been followed by surgery. Status post cholecystectomy 07/23/2022. 6. Diabetes mellitus. 7. Hypertension with chronic kidney disease. 8. Anemia. Iron deficiency noted. On Aranesp. s/p IV iron. 9. History of coronary disease status post cardiac stenting and CABG. 10. Rule out chronic disease. Patient does have 1+ proteinuria which is most likely secondary to underlying diabetic kidney disease. 11. Hypomagnesemia from poor intake. Replaced. Better. 12. Urinary retention. Armenta catheter placed. On Flomax. Urology following. 13. Volume overload. Plan: Renal function continues to improve. Continue with Armenta catheter Continue with IV Lasix No indication for dialysis at this point.
[2022-07-30] MEDS: PIPERACILLIN-TAZOBACTAM 3.375 GM in SODIUM CHLORIDE 0.9% 100 ML IVPB SCH ×2 (10:35→22:27)
[2022-07-30 12:13] LABS: Glucose,Whole Blood 174 mg/dL (70-110)
[2022-07-30] MEDS: LACTATED RINGERS 1,000 ML IV SCH (16:25)
[2022-07-30 17:13] LABS: Glucose,Whole Blood 196 mg/dL (70-110)
[2022-07-30] MEDS: TAMSULOSIN 0.4 MG CAP.ER.24H PO SCH (17:30)
--- NOTE | 2022-07-30 17:45 | P.PN ---
Progress Note - Text Progress Note Date: 07/30/22 Presenting complaint: Tired Hospital course: I'm rounding for Dr. Johny Granado. Patient admitted with acute kidney injury with ATN secondary to hypertension, low-sodium, metabolic acidosis, pneumonia, urinary retention and a Armenta catheter placed. Slight abnormalities, suspect underlying chronic kidney disease. 07/30/2022: Laying in bed. Eating fair. Had to 3 BMs yesterday. Slightly loose. No abdominal pain. No fever no chills. Tired. Armenta catheter. Making urine. Remains on IV Lasix. IV Zosyn. Active Medications Acetaminophen (Acetaminophen Tab 325 Mg Tab) 650 mg PO Q6HR PRN PRN Reason: Mild Pain or Fever > 100.5 Amlodipine Besylate (Amlodipine 5 Mg Tab) 5 mg PO DAILY [facility] Last Admin: 07/30/22 07:58 Dose: 5 mg Aspirin (Aspirin 81 Mg) 81 mg PO DAILY [facility] Last Admin: 07/30/22 07:58 Dose: 81 mg Atorvastatin Calcium (Atorvastatin 40 Mg Tab) 40 mg PO DAILY [facility] Last Admin: 07/30/22 07:57 Dose: 40 mg Darbepoetin Nir (Darbepoetin Nir 40 Mcg/0.4 Ml Syringe) 40 mcg SQ Q7D [facility] Last Admin: 07/25/22 11:52 Dose: 40 mcg Dextrose/Water (Dextrose 50% Syringe 50 Ml) 25 ml IVP PER PROTOCOL PRN; Protocol PRN Reason: Hypoglycemia Dextrose/Water (Dextrose 50% Syringe 50 Ml) 50 ml IVP PER PROTOCOL PRN; Protocol PRN Reason: Hypoglycemia Ergocalciferol (Ergocalciferol 1,250 Mcg (50,000 Iu) Capsule) 1,250 mcg PO MO [facility] Last Admin: 07/30/22 07:58 Dose: 1,250 mcg Fenofibrate (Fenofibrate 160 Mg Tab) 160 mg PO DAILY [facility] Last Admin: 07/30/22 07:58 Dose: 160 mg Folic Acid (Folic Acid 1 Mg Tab) 1 mg PO DAILY [facility] Last Admin: 07/30/22 07:57 Dose: 1 mg Furosemide (Furosemide 10 Mg/Ml 4 Ml Vial) 40 mg IV Q12HR [facility] Last Admin: 07/30/22 07:58 Dose: 40 mg Heparin Sodium (Porcine) (Heparin Sodium,Porcine/Pf 5,000 Unit/0.5 Ml Syringe) 5,000 unit SQ Q12HR [facility] Last Admin: 07/30/22 07:57 Dose: 5,000 unit Hydromorphone HCl (Hydromorphone 0.5 Mg/0.5 Ml Syringe) 0.5 mg IVP Q3HR PRN PRN Reason: Moderate Pain (Scale 4 to 6) Last Admin: 07/29/22 21:48 Dose: 0.5 mg Hydromorphone HCl (Hydromorphone 1 Mg/Ml 1 Ml Syringe) 1 mg IVP Q3HR PRN PRN Reason: Severe Pain (Scale 7 to 10) Last Admin: 07/25/22 20:12 Dose: 1 mg Lactated Ringer's (Lactated Ringers) 1,000 mls @ 20 mls/hr IV .Q24H [facility] Last Admin: 07/30/22 16:25 Dose: Not Given Piperacillin Sod/Tazobactam (Sod 3.375 gm/ Sodium Chloride) 100 mls @ 25 mls/hr IVPB Q12H [facility]; Protocol Last Admin: 07/30/22 10:35 Dose: 25 mls/hr Insulin Aspart (Insulin Aspart (Novolog) 100 Unit/Ml Vial) 0 unit SQ ACHS [facility]; Protocol Last Admin: 07/30/22 13:26 Dose: 1 unit Insulin Detemir (Insulin Detemir (Levemir) 100 Unit/Ml Syr) 30 unit SQ HS [facility] Last Admin: 07/29/22 21:50 Dose: 30 unit Levothyroxine Sodium (Levothyroxine 125 Mcg Tab) 250 mcg PO 0630 [facility] Last Admin: 07/30/22 06:48 Dose: 250 mcg Metoprolol Tartrate (Metoprolol Tartrate 25 Mg Tab) 25 mg PO TID [facility] Last Admin: 07/30/22 16:29 Dose: 25 mg Miscellaneous Information (Pneumonia Protocol Utilized 1 Each Misc) 1 each PO ONCE PRN PRN Reason: Per Protocol Naloxone HCl (Naloxone 0.4 Mg/Ml 1 Ml Vial) 0.2 mg IV Q2M PRN PRN Reason: Opioid Reversal Ondansetron HCl (Ondansetron 4 Mg/2 Ml Vial) 4 mg IVP Q8HR PRN PRN Reason: Nausea And Vomiting Last Admin: 07/24/22 22:15 Dose: 4 mg Pantoprazole Sodium (Pantoprazole 40 Mg Tablet) 40 mg PO DAILY [facility] Last Admin: 07/30/22 07:58 Dose: 40 mg Sodium Bicarbonate (Sodium Bicarbonate Tab 650 Mg Tab) 650 mg PO TID [facility] Last Admin: 07/30/22 16:29 Dose: 650 mg Tamsulosin HCl (Tamsulosin 0.4 Mg Cap.Er.24h) 0.4 mg PO PC-SUPPER [facility] Last Admin: 07/29/22 17:50 Dose: 0.4 mg On examination: VITAL SIGNS: [98.3, 66, 18, 1:30/, 97% on 2 L GENERAL APPEARANCE: BMI 32.3, Lying in bed, tired. HEENT: Normal external appearance of nose and ear. Oral cavity normal EYES: Pupils equal. Conjunctiva normal. NECK: JVD not raised. Mass not palpable. RESPIRATORY: Respiratory effort normal. Lungs decreased breath sounds. CARDIOVASCULAR: First and second sounds normal. No edema. ABDOMEN: Soft. Liver and spleen not palpable. No tenderness. No mass palpable. PSYCHIATRY: Able to answer simple questions. Mood and affect normal. INVESTIGATIONS, reviewed in the clinical context: WBC 12.1 hemoglobin 7.3 platelets 335 sodium 140 potassium 3.5 BUN 59.7 creatinine 4.4 Assessment and plan: -Acute kidney injury secondary to ATN secondary to hypertension and worsening with medications.: Slow to respond Creatinine was 2.01 on presentation patient went up to 4.8. Creatinine February 2021 was 1.0 -Hyponatremia: Corrected -Metabolic acidosis due to severe acute kidney injury injury: Corrected -Acute cholecystitis followed by an upper scopic cholecystectomy by Dr. Schilling on July 18 -Acute fluid overload, slow to respond IV Lasix -Left lower lobe Pneumonia suspected gram-negative organism IV Zosyn -Diabetes mellitus type 2, chronically on insulin Levemir. Follow Accu-Cheks -Anemia, iron deficiency Received IV iron. On Aranesp -CAD with a prior history of stent and CABG Aspirin, Lipitor, Lopressor -Hypothyroid On Synthroid -Essential hypertension Norvasc, Lipitor -GERD On PPI -Urinary retention possibly from blood outflow obstruction Seen by urology. On Flomax. Armenta catheter. Encourage oral intake. Sitting up in a chair. Slight improvement in creatinine. IV Zosyn. Remains on IV Lasix. Follow lites closely.
[2022-07-30] MEDS: INSULIN DETEMIR (LEVEMIR) 100 UNIT/ML SYR SQ SCH (21:10)
[2022-07-30 21:11] LABS: Glucose,Whole Blood 193 mg/dL (70-110)
[2022-07-30] MEDS: HYDROmorphone 0.5 MG/0.5 ML SYRINGE IVP PRN (21:11)
[2022-07-31 06:11] LABS: Glucose,Whole Blood 111 mg/dL (70-110)
[2022-07-31] MEDS: LEVOTHYROXINE 125 MCG TAB PO SCH (06:11)
[2022-07-31] MEDS: INSULIN ASPART (NovoLOG) 100 UNIT/ML VIAL SQ SCH ×4 (06:40→20:09)
[2022-07-31 07:41] LABS: Glucose,Whole Blood 95 mg/dL (70-110)
[2022-07-31] MEDS: FUROSEMIDE 10 MG/ML 4 ML VIAL IV SCH ×2 (08:26→20:26)
[2022-07-31] MEDS: METOPROLOL TARTRATE 25 MG TAB PO SCH ×3 (08:27→20:26)
[2022-07-31] MEDS: SODIUM BICARBONATE TAB 650 MG TAB PO SCH ×3 (08:27→20:36)
[2022-07-31] MEDS: HEPARIN SODIUM,PORCINE/PF 5,000 UNIT/0.5 ML SYRINGE SQ SCH ×2 (08:27→20:26)
[2022-07-31] MEDS: ATORVASTATIN 40 MG TAB PO SCH (08:27)
[2022-07-31] MEDS: FOLIC ACID 1 MG TAB PO SCH (08:27)
[2022-07-31] MEDS: ASPIRIN 81 MG PO SCH (08:27)
[2022-07-31] MEDS: PANTOPRAZOLE 40 MG TABLET PO SCH (08:27)
[2022-07-31] MEDS: FENOFIBRATE 160 MG TAB PO SCH (08:27)
[2022-07-31] MEDS: amLODIPine 5 MG TAB PO SCH (08:27)
[2022-07-31] MEDS: PIPERACILLIN-TAZOBACTAM 3.375 GM in SODIUM CHLORIDE 0.9% 100 ML IVPB SCH ×2 (11:41→23:38)
[2022-07-31 12:30] LABS: African American GFR (CKD) 17 (>60 ml/min/1.73 sqM); Anion Gap 14 mmol/L; Blood Urea Nitrogen 61 mg/dL (9-20); Calcium 7.8 mg/dL (8.4-10.2); Carbon Dioxide 28 mmol/L (22-30); Chloride 100 mmol/L (98-107); Glucose 83 mg/dL (74-99); Non-African American GFR(CKD) 14 (>60 ml/min/1.73 sqM); Potassium 3.2 mmol/L (3.5-5.1); Sodium 142 mmol/L (137-145)
[2022-07-31 12:44] LABS: Glucose,Whole Blood 83 mg/dL (70-110)
--- NOTE | 2022-07-31 12:51 | P.PN ---
Subjective Patient is seen in follow-up for acute kidney injury. Renal function was worsening the last few days. Creatinine decreased to 4.8 yesterday. On IV Lasix. Nonoliguric. Has Armenta catheter for urinary retention. Nonoliguric. Oral intake fair. Blood pressure not low. Nausea has improved. Serum creatinine continues to decrease and is down to 4.0 today Objective - Vital Signs Vital signs: Vital Signs Temp 98.1 F 07/31/22 08:00 Pulse 68 07/31/22 08:00 Resp 18 07/31/22 08:00 BP 138/70 07/31/22 08:00 Pulse Ox 100 07/31/22 08:00 FiO2 Intake & Output 07/30/22 07/31/22 07/31/22 18:59 06:59 18:59 Intake Total 536 Output Total 640 650 Balance -104 -650 Intake: Oral 536 Output: Urine 640 650 Other: Voiding Method Indwelling Catheter Indwelling Catheter Indwelling Catheter # Bowel Movements 3 1 - Exam Awake, comfortable, in no acute distress Examination of the heart S1 and S2 Examination of the lungs bilateral breath sounds are heard Abdomen is soft nontender Examination lower extremity shows no significant edema. Bilateral BKA - Labs CBC & Chem 7: 07/30/22 05:35 07/31/22 10:57 Labs: Abnormal Lab Results - Last 24 Hours (Table) 07/30/22 07/30/22 07/31/22 Range/Units 17:12 21:10 06:10 Potassium (3.5-5.1) mmol/L BUN (9-20) mg/dL Creatinine (0.66-1.25) mg/dL POC Glucose (mg/dL) 196 H 193 H 111 H (70-110) mg/dL Calcium (8.4-10.2) mg/dL 07/31/22 Range/Units 10:57 Potassium 3.2 L (3.5-5.1) mmol/L BUN 61 H (9-20) mg/dL Creatinine 4.09 H (0.66-1.25) mg/dL POC Glucose (mg/dL) (70-110) mg/dL Calcium 7.8 L (8.4-10.2) mg/dL Assessment and Plan Assessment: 1. Acute kidney injury secondary to ATN secondary to hypotension and further worsened with the use of Cozaar and Kerendia. Creatinine was 2 on admission and was down to 4.0 today. No hydronephrosis noted on CAT scan. Creatinine in February 2021 was as low as 1.0. 2. Hyponatremia secondary to acute kidney injury. Improved. Stable today. 3. Metabolic acidosis secondary to acute kidney injury and IV fluids. On oral bicarbonate. 4. Pneumonia maintained on antibiotics. 5. Gallstones with concern for cholecystitis been followed by surgery. Status post cholecystectomy 07/23/2022. 6. Diabetes mellitus. 7. Hypertension with chronic kidney disease. 8. Anemia. Iron deficiency noted. On Aranesp. s/p IV iron. 9. History of coronary disease status post cardiac stenting and CABG. 10. Rule out chronic disease. Patient does have 1+ proteinuria which is most likely secondary to underlying diabetic kidney disease. 11. Hypomagnesemia from poor intake. Replaced. Better. 12. Urinary retention. Armenta catheter placed. On Flomax. Urology following. 13. Volume overload. Plan: Renal function continues to improve. Continue with Armenta catheter Continue with IV Lasix No indication for dialysis at this point. Switch to oral Lasix in a.m.
[2022-07-31] MEDS: LACTATED RINGERS 1,000 ML IV SCH (16:50)
[2022-07-31 17:41] LABS: Glucose,Whole Blood 93 mg/dL (70-110)
[2022-07-31] MEDS: TAMSULOSIN 0.4 MG CAP.ER.24H PO SCH (18:47)
[2022-07-31] MEDS ORDERED: POTASSIUM CHLORIDE ER 20 MEQ TAB.ER PO STA (20:07)
--- NOTE | 2022-07-31 20:07 | P.PN ---
Progress Note - Text Progress Note Date: 07/31/22 Presenting complaint: Tired Hospital course: I'm rounding for Dr. Johny Granado. Patient admitted with acute kidney injury with ATN secondary to hypertension, low-sodium, metabolic acidosis, pneumonia, urinary retention and a Armenta catheter placed. Slight abnormalities, suspect underlying chronic kidney disease. 07/30/2022: Laying in bed. Eating fair. Had to 3 BMs yesterday. Slightly loose. No abdominal pain. No fever no chills. Tired. Armenta catheter. Making urine. Remains on IV Lasix. IV Zosyn. 07/31/2022: In bed. Oral intake fair. Had BM. Good urine output. On IV Lasix, IV Zosyn. Some improvement in renal function. Active Medications Acetaminophen (Acetaminophen Tab 325 Mg Tab) 650 mg PO Q6HR PRN PRN Reason: Mild Pain or Fever > 100.5 Amlodipine Besylate (Amlodipine 5 Mg Tab) 5 mg PO DAILY [facility] Last Admin: 07/31/22 08:27 Dose: 5 mg Aspirin (Aspirin 81 Mg) 81 mg PO DAILY [facility] Last Admin: 07/31/22 08:27 Dose: 81 mg Atorvastatin Calcium (Atorvastatin 40 Mg Tab) 40 mg PO DAILY [facility] Last Admin: 07/31/22 08:27 Dose: 40 mg Darbepoetin Nir (Darbepoetin Nir 40 Mcg/0.4 Ml Syringe) 40 mcg SQ Q7D [facility] Last Admin: 07/25/22 11:52 Dose: 40 mcg Dextrose/Water (Dextrose 50% Syringe 50 Ml) 25 ml IVP PER PROTOCOL PRN; Protocol PRN Reason: Hypoglycemia Dextrose/Water (Dextrose 50% Syringe 50 Ml) 50 ml IVP PER PROTOCOL PRN; Protocol PRN Reason: Hypoglycemia Ergocalciferol (Ergocalciferol 1,250 Mcg (50,000 Iu) Capsule) 1,250 mcg PO MO [facility] Last Admin: 07/30/22 07:58 Dose: 1,250 mcg Fenofibrate (Fenofibrate 160 Mg Tab) 160 mg PO DAILY [facility] Last Admin: 07/31/22 08:27 Dose: 160 mg Folic Acid (Folic Acid 1 Mg Tab) 1 mg PO DAILY [facility] Last Admin: 07/31/22 08:27 Dose: 1 mg Furosemide (Furosemide 10 Mg/Ml 4 Ml Vial) 40 mg IV Q12HR [facility] Last Admin: 07/31/22 08:26 Dose: 40 mg Heparin Sodium (Porcine) (Heparin Sodium,Porcine/Pf 5,000 Unit/0.5 Ml Syringe) 5,000 unit SQ Q12HR [facility] Last Admin: 07/31/22 08:27 Dose: 5,000 unit Hydromorphone HCl (Hydromorphone 0.5 Mg/0.5 Ml Syringe) 0.5 mg IVP Q3HR PRN PRN Reason: Moderate Pain (Scale 4 to 6) Last Admin: 07/30/22 21:11 Dose: 0.5 mg Hydromorphone HCl (Hydromorphone 1 Mg/Ml 1 Ml Syringe) 1 mg IVP Q3HR PRN PRN Reason: Severe Pain (Scale 7 to 10) Last Admin: 07/25/22 20:12 Dose: 1 mg Lactated Ringer's (Lactated Ringers) 1,000 mls @ 20 mls/hr IV .Q24H [facility] Last Admin: 07/31/22 16:50 Dose: Not Given Piperacillin Sod/Tazobactam (Sod 3.375 gm/ Sodium Chloride) 100 mls @ 25 mls/hr IVPB Q12H [facility]; Protocol Last Admin: 07/31/22 11:41 Dose: 25 mls/hr Insulin Aspart (Insulin Aspart (Novolog) 100 Unit/Ml Vial) 0 unit SQ ACHS [facility]; Protocol Last Admin: 07/31/22 18:45 Dose: Not Given Insulin Detemir (Insulin Detemir (Levemir) 100 Unit/Ml Syr) 30 unit SQ HS [facility] Last Admin: 07/30/22 21:10 Dose: 30 unit Levothyroxine Sodium (Levothyroxine 125 Mcg Tab) 250 mcg PO 0630 [facility] Last Admin: 07/31/22 06:11 Dose: 250 mcg Metoprolol Tartrate (Metoprolol Tartrate 25 Mg Tab) 25 mg PO TID [facility] Last Admin: 07/31/22 16:52 Dose: 25 mg Miscellaneous Information (Pneumonia Protocol Utilized 1 Each Misc) 1 each PO ONCE PRN PRN Reason: Per Protocol Naloxone HCl (Naloxone 0.4 Mg/Ml 1 Ml Vial) 0.2 mg IV Q2M PRN PRN Reason: Opioid Reversal Ondansetron HCl (Ondansetron 4 Mg/2 Ml Vial) 4 mg IVP Q8HR PRN PRN Reason: Nausea And Vomiting Last Admin: 07/24/22 22:15 Dose: 4 mg Pantoprazole Sodium (Pantoprazole 40 Mg Tablet) 40 mg PO DAILY [facility] Last Admin: 07/31/22 08:27 Dose: 40 mg Sodium Bicarbonate (Sodium Bicarbonate Tab 650 Mg Tab) 650 mg PO TID [facility] Last Admin: 07/31/22 18:45 Dose: Not Given Tamsulosin HCl (Tamsulosin 0.4 Mg Cap.Er.24h) 0.4 mg PO PC-SUPPER [facility] Last Admin: 07/31/22 18:47 Dose: 0.4 mg On examination: VITAL SIGNS: 97.4, 68, 18, 1 47 x 71, 92% on GENERAL APPEARANCE: Laying in bed, awake HEENT: Normal external appearance of nose and ear. Oral cavity normal EYES: Pupils equal. Conjunctiva normal. NECK: JVD not raised. Mass not palpable. RESPIRATORY: Respiratory effort normal. Lungs decreased breath sounds. CARDIOVASCULAR: First and second sounds normal. No edema. ABDOMEN: Soft. Liver and spleen not palpable. No tenderness. No mass palpable. PSYCHIATRY: Able to answer simple questions. Mood and affect normal. INVESTIGATIONS, reviewed in the clinical context: 07/31/2022: Potassium 3.2 BUN 61 creatinine 4.09 WBC 12.1 hemoglobin 7.3 platelets 335 sodium 140 potassium 3.5 BUN 59.7 creatinine 4.4 Assessment and plan: -Acute kidney injury secondary to ATN secondary to hypertension and worsening with medications.: Slow to respond Creatinine was 2.01 on presentation patient went up to 4.8. Creatinine February 2021 was 1.0 -Hyponatremia: Corrected -Metabolic acidosis due to severe acute kidney injury injury: Corrected -Acute cholecystitis followed by an upper scopic cholecystectomy by Dr. Schilling on July 18 -Acute fluid overload, slow to respond IV Lasix 40 mg every 12 -Left lower lobe Pneumonia suspected gram-negative organism IV Zosyn -Diabetes mellitus type 2, chronically on insulin Levemir. Follow Accu-Cheks -Anemia, iron deficiency Received IV iron. On Aranesp -CAD with a prior history of stent and CABG Aspirin, Lipitor, Lopressor -Hypothyroid On Synthroid -Essential hypertension Norvasc, Lipitor -GERD On PPI -Urinary retention possibly from blood outflow obstruction Seen by urology. On Flomax. Armenta catheter. IV Lasix 40 mg every 12. IV Zosyn. Slow improvement OF renal function. Other medications.
[2022-07-31 20:08] LABS: Glucose,Whole Blood 100 mg/dL (70-110)
[2022-07-31] MEDS: INSULIN DETEMIR (LEVEMIR) 100 UNIT/ML SYR SQ SCH (20:24)
[2022-07-31] MEDS: HYDROmorphone 0.5 MG/0.5 ML SYRINGE IVP PRN (20:25)
[2022-08-01 05:58] LABS: African American GFR (CKD) 18 (>60 ml/min/1.73 sqM); Anion Gap 11 mmol/L; Blood Urea Nitrogen 56 mg/dL (9-20); Calcium 7.5 mg/dL (8.4-10.2); Carbon Dioxide 30 mmol/L (22-30); Chloride 99 mmol/L (98-107); Glucose 78 mg/dL (74-99); Non-African American GFR(CKD) 16 (>60 ml/min/1.73 sqM); Potassium 3.5 mmol/L (3.5-5.1); Sodium 140 mmol/L (137-145)
[2022-08-01 06:50] LABS: Glucose,Whole Blood 77 mg/dL (70-110)
[2022-08-01] MEDS: INSULIN ASPART (NovoLOG) 100 UNIT/ML VIAL SQ SCH ×4 (06:50→20:10)
[2022-08-01] MEDS: LEVOTHYROXINE 125 MCG TAB PO SCH (06:51)
[2022-08-01 07:20] LABS: Glucose,Whole Blood 74 mg/dL (70-110)
[2022-08-01] MEDS: FENOFIBRATE 160 MG TAB PO SCH (08:29)
[2022-08-01] MEDS: METOPROLOL TARTRATE 25 MG TAB PO SCH ×3 (08:30→20:37)
[2022-08-01] MEDS: ATORVASTATIN 40 MG TAB PO SCH (08:30)
[2022-08-01] MEDS: PANTOPRAZOLE 40 MG TABLET PO SCH (08:30)
[2022-08-01] MEDS: amLODIPine 5 MG TAB PO SCH (08:30)
[2022-08-01] MEDS: FOLIC ACID 1 MG TAB PO SCH (08:30)
[2022-08-01] MEDS: SODIUM BICARBONATE TAB 650 MG TAB PO SCH ×3 (08:30→20:37)
[2022-08-01] MEDS: FUROSEMIDE 10 MG/ML 4 ML VIAL IV SCH (08:30)
[2022-08-01] MEDS: HEPARIN SODIUM,PORCINE/PF 5,000 UNIT/0.5 ML SYRINGE SQ SCH ×2 (08:30→20:37)
[2022-08-01] MEDS: ASPIRIN 81 MG PO SCH (08:30)
[2022-08-01] MEDS: DARBEPOETIN ALFA 40 MCG/0.4 ML SYRINGE SQ SCH (10:41)
[2022-08-01 13:05] LABS: Glucose,Whole Blood 103 mg/dL (70-110)
[2022-08-01] MEDS: LACTATED RINGERS 1,000 ML IV SCH (13:13)
--- NOTE | 2022-08-01 14:44 | P.PN ---
Subjective Patient is seen in follow-up for acute kidney injury. Renal function was worsening the last few days. Creatinine decreased to 4.8 yesterday. On IV Lasix. Nonoliguric. Has Armenta catheter for urinary retention. Nonoliguric. Oral intake fair. Blood pressure not low. . Serum creatinine continues to decrease and is down to 3.8 today Pt is c/o diarrhea today x2. No n,v,abdominal pain. Objective - Vital Signs Vital signs: Vital Signs Temp 98 F 08/01/22 13:00 Pulse 71 08/01/22 13:00 Resp 18 08/01/22 13:00 BP 152/69 08/01/22 13:00 Pulse Ox 96 08/01/22 13:00 FiO2 Intake & Output 07/31/22 08/01/22 08/01/22 18:59 06:59 18:59 Intake Total 100 180 Output Total 950 Balance -950 100 180 Weight 90.718 kg Intake: Intake, IV Titration 100 Amount Piperacillin-Tazobactam 3 100 .375 gm In Sodium Chloride 0.9% 100 ml @ 25 mls/hr IVPB Q12H [facility] Rx# :[id number] Oral 180 Output: Urine 950 Other: Voiding Method Indwelling Catheter Indwelling Catheter Indwelling Catheter - Exam Awake, comfortable, in no acute distress Examination of the heart S1 and S2 Examination of the lungs bilateral breath sounds are heard Abdomen is soft nontender Examination lower extremity shows no significant edema. Bilateral BKA - Labs CBC & Chem 7: 07/30/22 05:35 08/01/22 05:03 Labs: Abnormal Lab Results - Last 24 Hours (Table) 08/01/22 Range/Units 05:03 BUN 56 H (9-20) mg/dL Creatinine 3.82 H (0.66-1.25) mg/dL Calcium 7.5 L (8.4-10.2) mg/dL Assessment and Plan Assessment: 1. Acute kidney injury secondary to ATN secondary to hypotension and further worsened with the use of Cozaar and Kerendia. Creatinine was 2 on admission and was down to 3.8 today. No hydronephrosis noted on CAT scan. Creatinine in February 2021 was as low as 1.0. 2. Hyponatremia secondary to acute kidney injury. Improved. Stable today. 3. Metabolic acidosis secondary to acute kidney injury and IV fluids. On oral bicarbonate. 4. Pneumonia maintained on antibiotics. 5. Gallstones with concern for cholecystitis been followed by surgery. Status post cholecystectomy 07/23/2022. 6. Diabetes mellitus. 7. Hypertension with chronic kidney disease. 8. Anemia. Iron deficiency noted. On Aranesp. s/p IV iron. 9. History of coronary disease status post cardiac stenting and CABG. 10. Rule out chronic disease. Patient does have 1+ proteinuria which is most likely secondary to underlying diabetic kidney disease. 11. Hypomagnesemia from poor intake. Replaced. Better. 12. Urinary retention. Armenta catheter placed. On Flomax. Urology following. 13. Volume overload, improved Plan: Renal function continues to improve. Continue with Armenta catheter Switch to oral diuretics. No indication for dialysis at this point. Check stool for C diff if diarrhea persists.
[2022-08-01] MEDS: TORSEMIDE 20 MG TAB PO SCH (15:15)
[2022-08-01 16:53] LABS: Glucose,Whole Blood 117 mg/dL (70-110)
[2022-08-01] MEDS: TAMSULOSIN 0.4 MG CAP.ER.24H PO SCH (18:32)
[2022-08-01 19:40] LABS: Glucose,Whole Blood 137 mg/dL (70-110)
[2022-08-01] MEDS: HYDROmorphone 0.5 MG/0.5 ML SYRINGE IVP PRN (20:36)
[2022-08-01] MEDS: INSULIN DETEMIR (LEVEMIR) 100 UNIT/ML SYR SQ SCH (20:37)
--- NOTE | 2022-08-01 20:39 | P.PN ---
Progress Note - Text Progress Note Date: 08/01/22 Presenting complaint: Tired Hospital course: I'm rounding for Dr. Johny Granado. Patient admitted with acute kidney injury with ATN secondary to hypertension, low-sodium, metabolic acidosis, pneumonia, urinary retention and a Armenta catheter placed. Slight abnormalities, suspect underlying chronic kidney disease. 07/30/2022: Laying in bed. Eating fair. Had to 3 BMs yesterday. Slightly loose. No abdominal pain. No fever no chills. Tired. Armenta catheter. Making urine. Remains on IV Lasix. IV Zosyn. 07/31/2022: In bed. Oral intake fair. Had BM. Good urine output. On IV Lasix, IV Zosyn. Some improvement in renal function. 08/01/2022: Patient had some loose stools. IV Zosyn been discontinued. We'll check for C. diff. Oral intake fair. Improvement in creatinine. Active Medications Acetaminophen (Acetaminophen Tab 325 Mg Tab) 650 mg PO Q6HR PRN PRN Reason: Mild Pain or Fever > 100.5 Amlodipine Besylate (Amlodipine 5 Mg Tab) 5 mg PO DAILY [facility] Last Admin: 08/01/22 08:30 Dose: 5 mg Aspirin (Aspirin 81 Mg) 81 mg PO DAILY [facility] Last Admin: 08/01/22 08:30 Dose: 81 mg Atorvastatin Calcium (Atorvastatin 40 Mg Tab) 40 mg PO DAILY [facility] Last Admin: 08/01/22 08:30 Dose: 40 mg Darbepoetin Nir (Darbepoetin Nir 40 Mcg/0.4 Ml Syringe) 40 mcg SQ Q7D [facility] Last Admin: 08/01/22 10:41 Dose: 40 mcg Dextrose/Water (Dextrose 50% Syringe 50 Ml) 25 ml IVP PER PROTOCOL PRN; Protocol PRN Reason: Hypoglycemia Dextrose/Water (Dextrose 50% Syringe 50 Ml) 50 ml IVP PER PROTOCOL PRN; Protocol PRN Reason: Hypoglycemia Ergocalciferol (Ergocalciferol 1,250 Mcg (50,000 Iu) Capsule) 1,250 mcg PO MO [facility] Last Admin: 07/30/22 07:58 Dose: 1,250 mcg Fenofibrate (Fenofibrate 160 Mg Tab) 160 mg PO DAILY [facility] Last Admin: 08/01/22 08:29 Dose: 160 mg Folic Acid (Folic Acid 1 Mg Tab) 1 mg PO DAILY [facility] Last Admin: 08/01/22 08:30 Dose: 1 mg Heparin Sodium (Porcine) (Heparin Sodium,Porcine/Pf 5,000 Unit/0.5 Ml Syringe) 5,000 unit SQ Q12HR [facility] Last Admin: 08/01/22 20:37 Dose: 5,000 unit Hydromorphone HCl (Hydromorphone 0.5 Mg/0.5 Ml Syringe) 0.5 mg IVP Q3HR PRN PRN Reason: Moderate Pain (Scale 4 to 6) Last Admin: 08/01/22 20:36 Dose: 0.5 mg Hydromorphone HCl (Hydromorphone 1 Mg/Ml 1 Ml Syringe) 1 mg IVP Q3HR PRN PRN Reason: Severe Pain (Scale 7 to 10) Last Admin: 07/25/22 20:12 Dose: 1 mg Lactated Ringer's (Lactated Ringers) 1,000 mls @ 20 mls/hr IV .Q24H [facility] Last Admin: 08/01/22 13:13 Dose: Not Given Insulin Aspart (Insulin Aspart (Novolog) 100 Unit/Ml Vial) 0 unit SQ ACHS [facility]; Protocol Last Admin: 08/01/22 20:10 Dose: Not Given Insulin Detemir (Insulin Detemir (Levemir) 100 Unit/Ml Syr) 30 unit SQ HS [facility] Last Admin: 08/01/22 20:37 Dose: 15 unit Levothyroxine Sodium (Levothyroxine 125 Mcg Tab) 250 mcg PO 0630 [facility] Last Admin: 08/01/22 06:51 Dose: 250 mcg Metoprolol Tartrate (Metoprolol Tartrate 25 Mg Tab) 25 mg PO TID [facility] Last Admin: 08/01/22 20:37 Dose: 25 mg Miscellaneous Information (Pneumonia Protocol Utilized 1 Each Misc) 1 each PO ONCE PRN PRN Reason: Per Protocol Naloxone HCl (Naloxone 0.4 Mg/Ml 1 Ml Vial) 0.2 mg IV Q2M PRN PRN Reason: Opioid Reversal Ondansetron HCl (Ondansetron 4 Mg/2 Ml Vial) 4 mg IVP Q8HR PRN PRN Reason: Nausea And Vomiting Last Admin: 07/24/22 22:15 Dose: 4 mg Pantoprazole Sodium (Pantoprazole 40 Mg Tablet) 40 mg PO DAILY [facility] Last Admin: 08/01/22 08:30 Dose: 40 mg Sodium Bicarbonate (Sodium Bicarbonate Tab 650 Mg Tab) 650 mg PO TID [facility] Last Admin: 08/01/22 20:37 Dose: 650 mg Tamsulosin HCl (Tamsulosin 0.4 Mg Cap.Er.24h) 0.4 mg PO PC-SUPPER [facility] Last Admin: 08/01/22 18:32 Dose: 0.4 mg Torsemide (Torsemide 20 Mg Tab) 40 mg PO DAILY [facility] Last Admin: 08/01/22 15:15 Dose: 40 mg On examination: VITAL SIGNS: 98, 71, 18, 1 52 x 69, 96% room air GENERAL APPEARANCE: Laying in bed, awake HEENT: Normal external appearance of nose and ear. Oral cavity normal EYES: Pupils equal. Conjunctiva normal. NECK: JVD not raised. Mass not palpable. RESPIRATORY: Respiratory effort normal. Lungs decreased breath sounds. CARDIOVASCULAR: First and second sounds normal. No edema. ABDOMEN: Soft. Liver and spleen not palpable. No tenderness. No mass palpable. PSYCHIATRY: Able to answer simple questions. Mood and affect normal. INVESTIGATIONS, reviewed in the clinical context: 08/01/2022: Potassium 3.5. 56 creatinine 3.82 07/31/2022: Potassium 3.2 BUN 61 creatinine 4.09 WBC 12.1 hemoglobin 7.3 platelets 335 sodium 140 potassium 3.5 BUN 59.7 creatinine 4.4 Assessment and plan: -Acute kidney injury secondary to ATN secondary to hypertension and worsening with medications.: Slow improvement Creatinine was 2.01 on presentation patient went up to 4.8. Creatinine February 2021 was 1.0 -Acute diarrhea Stool for C. diff -Hyponatremia: Corrected -Metabolic acidosis due to severe acute kidney injury injury: Corrected -Acute cholecystitis followed by an upper scopic cholecystectomy by Dr. Schilling on July 18 -Acute fluid overload, IV Lasix discontinued -Left lower lobe Pneumonia suspected gram-negative organism: Improved IV Zosyn: Completed course -Diabetes mellitus type 2, chronically on insulin Levemir. Follow Accu-Cheks -Anemia, iron deficiency Received IV iron. On Aranesp -CAD with a prior history of stent and CABG Aspirin, Lipitor, Lopressor -Hypothyroid On Synthroid -Essential hypertension Norvasc, Lipitor -GERD On PPI -Urinary retention possibly from blood outflow obstruction Seen by urology. On Flomax. Armenta catheter DC trial before discharge.. DC Zosyn. Change to oral Lasix. Stool for C. diff. Discussed with patient other medications to continue.
[2022-08-02] MEDS: INSULIN ASPART (NovoLOG) 100 UNIT/ML VIAL SQ SCH ×4 (05:53→22:04)
[2022-08-02 05:55] LABS: Glucose,Whole Blood 86 mg/dL (70-110)
[2022-08-02] MEDS: LEVOTHYROXINE 125 MCG TAB PO SCH (05:55)
[2022-08-02 06:56] LABS: Glucose,Whole Blood 79 mg/dL (70-110)
[2022-08-02] MEDS ORDERED: FUROSEMIDE 10 MG/ML 4 ML VIAL IV STA (09:53)
[2022-08-02] MEDS: HEPARIN SODIUM,PORCINE/PF 5,000 UNIT/0.5 ML SYRINGE SQ SCH ×2 (11:14→21:56)
[2022-08-02] MEDS: SODIUM BICARBONATE TAB 650 MG TAB PO SCH ×3 (11:14→21:56)
[2022-08-02] MEDS: TORSEMIDE 20 MG TAB PO SCH (11:14)
[2022-08-02] MEDS: ASPIRIN 81 MG PO SCH (11:14)
[2022-08-02] MEDS: FENOFIBRATE 160 MG TAB PO SCH (11:15)
[2022-08-02] MEDS: PANTOPRAZOLE 40 MG TABLET PO SCH (11:15)
[2022-08-02] MEDS: amLODIPine 5 MG TAB PO SCH (11:15)
[2022-08-02] MEDS: FOLIC ACID 1 MG TAB PO SCH (11:15)
[2022-08-02] MEDS: ATORVASTATIN 40 MG TAB PO SCH (11:15)
[2022-08-02] MEDS: METOPROLOL TARTRATE 25 MG TAB PO SCH ×3 (11:15→21:55)
[2022-08-02 11:44] LABS: Glucose,Whole Blood 82 mg/dL (70-110)
--- NOTE | 2022-08-02 11:47 | P.PN ---
Subjective Patient is seen in follow-up for acute kidney injury. Renal function was worsening the last few days. Creatinine decreased to 4.8 yesterday. On IV Lasix. Nonoliguric. Has Armenta catheter for urinary retention. Nonoliguric. Oral intake fair. Blood pressure not low. Serum creatinine continues to decrease and is down to 3.8 yesterday No significant diarrhea today Objective - Vital Signs Vital signs: Vital Signs Temp 98.5 F 08/02/22 08:45 Pulse 68 08/02/22 08:45 Resp 18 08/02/22 08:45 BP 150/73 08/02/22 08:45 Pulse Ox 97 08/02/22 10:50 FiO2 Intake & Output 08/01/22 08/02/22 08/02/22 18:59 06:59 18:59 Intake Total 420 250 240 Output Total 1000 1200 Balance -580 -950 240 Intake: Oral 420 250 240 Output: Urine 1000 1200 Other: Voiding Method Indwelling Catheter Indwelling Catheter # Voids 1 - Exam Awake, comfortable, in no acute distress Examination of the heart S1 and S2 Examination of the lungs bilateral breath sounds are heard Abdomen is soft nontender Examination lower extremity shows no significant edema. Bilateral BKA - Labs CBC & Chem 7: 07/30/22 05:35 08/01/22 05:03 Labs: Abnormal Lab Results - Last 24 Hours (Table) 08/01/22 08/01/22 Range/Units 16:51 19:38 POC Glucose (mg/dL) 117 H 137 H (70-110) mg/dL Assessment and Plan Assessment: 1. Acute kidney injury secondary to ATN secondary to hypotension and further worsened with the use of Cozaar and Kerendia. Creatinine was 2 on admission and was down to 3.8 . No hydronephrosis noted on CAT scan. Creatinine in February 2021 was as low as 1.0. 2. Hyponatremia secondary to acute kidney injury. Improved. Stable today. 3. Metabolic acidosis secondary to acute kidney injury and IV fluids. On oral bicarbonate. 4. Pneumonia maintained on antibiotics. 5. Gallstones with concern for cholecystitis been followed by surgery. Status post cholecystectomy 07/23/2022. 6. Diabetes mellitus. 7. Hypertension with chronic kidney disease. 8. Anemia. Iron deficiency noted. On Aranesp. s/p IV iron. 9. History of coronary disease status post cardiac stenting and CABG. 10. Rule out chronic disease. Patient does have 1+ proteinuria which is most likely secondary to underlying diabetic kidney disease. 11. Hypomagnesemia from poor intake. Replaced. Better. 12. Urinary retention. Armenta catheter placed. On Flomax. Urology following. 13. Volume overload, improved Plan: Renal function continues to improve. Continue with Armenta catheter Continue oral diuretics No indication for dialysis at this point.
[2022-08-02 12:41] LABS: African American GFR (CKD) 21 (>60 ml/min/1.73 sqM); Anion Gap 9 mmol/L; Blood Urea Nitrogen 55 mg/dL (9-20); Calcium 7.7 mg/dL (8.4-10.2); Carbon Dioxide 33 mmol/L (22-30); Chloride 98 mmol/L (98-107); Glucose 74 mg/dL (74-99); Non-African American GFR(CKD) 18 (>60 ml/min/1.73 sqM); Potassium 3.6 mmol/L (3.5-5.1); Sodium 140 mmol/L (137-145)
[2022-08-02] MEDS: LACTATED RINGERS 1,000 ML IV SCH (14:52)
[2022-08-02 16:26] LABS: Glucose,Whole Blood 151 mg/dL (70-110)
[2022-08-02] MEDS: TAMSULOSIN 0.4 MG CAP.ER.24H PO SCH (17:52)
--- NOTE | 2022-08-02 18:31 | P.PN ---
Progress Note - Text Progress Note Date: 08/02/22 Presenting complaint: Tired Hospital course: I'm rounding for Dr. Johny Granado. Patient admitted with acute kidney injury with ATN secondary to hypertension, low-sodium, metabolic acidosis, pneumonia, urinary retention and a Armenta catheter placed. Slight abnormalities, suspect underlying chronic kidney disease. 07/30/2022: Laying in bed. Eating fair. Had to 3 BMs yesterday. Slightly loose. No abdominal pain. No fever no chills. Tired. Armenta catheter. Making urine. Remains on IV Lasix. IV Zosyn. 07/31/2022: In bed. Oral intake fair. Had BM. Good urine output. On IV Lasix, IV Zosyn. Some improvement in renal function. 08/01/2022: Patient had some loose stools. IV Zosyn been discontinued. We'll check for C. diff. Oral intake fair. Improvement in creatinine. 08/02/2022: Loose bowels much improved. Oral intake better. IV Lasix discontinued. On oral Demadex. Active Medications Acetaminophen (Acetaminophen Tab 325 Mg Tab) 650 mg PO Q6HR PRN PRN Reason: Mild Pain or Fever > 100.5 Amlodipine Besylate (Amlodipine 5 Mg Tab) 5 mg PO DAILY [facility] Last Admin: 08/02/22 11:15 Dose: 5 mg Aspirin (Aspirin 81 Mg) 81 mg PO DAILY [facility] Last Admin: 08/02/22 11:14 Dose: 81 mg Atorvastatin Calcium (Atorvastatin 40 Mg Tab) 40 mg PO DAILY [facility] Last Admin: 08/02/22 11:15 Dose: 40 mg Darbepoetin Nir (Darbepoetin Nir 40 Mcg/0.4 Ml Syringe) 40 mcg SQ Q7D [facility] Last Admin: 08/01/22 10:41 Dose: 40 mcg Dextrose/Water (Dextrose 50% Syringe 50 Ml) 25 ml IVP PER PROTOCOL PRN; Protocol PRN Reason: Hypoglycemia Dextrose/Water (Dextrose 50% Syringe 50 Ml) 50 ml IVP PER PROTOCOL PRN; Protocol PRN Reason: Hypoglycemia Ergocalciferol (Ergocalciferol 1,250 Mcg (50,000 Iu) Capsule) 1,250 mcg PO MO [facility] Last Admin: 07/30/22 07:58 Dose: 1,250 mcg Fenofibrate (Fenofibrate 160 Mg Tab) 160 mg PO DAILY [facility] Last Admin: 08/02/22 11:15 Dose: 160 mg Folic Acid (Folic Acid 1 Mg Tab) 1 mg PO DAILY [facility] Last Admin: 08/02/22 11:15 Dose: 1 mg Heparin Sodium (Porcine) (Heparin Sodium,Porcine/Pf 5,000 Unit/0.5 Ml Syringe) 5,000 unit SQ Q12HR [facility] Last Admin: 08/02/22 11:14 Dose: 5,000 unit Hydromorphone HCl (Hydromorphone 0.5 Mg/0.5 Ml Syringe) 0.5 mg IVP Q3HR PRN PRN Reason: Moderate Pain (Scale 4 to 6) Last Admin: 08/01/22 20:36 Dose: 0.5 mg Hydromorphone HCl (Hydromorphone 1 Mg/Ml 1 Ml Syringe) 1 mg IVP Q3HR PRN PRN Reason: Severe Pain (Scale 7 to 10) Last Admin: 07/25/22 20:12 Dose: 1 mg Lactated Ringer's (Lactated Ringers) 1,000 mls @ 20 mls/hr IV .Q24H [facility] Last Admin: 08/02/22 14:52 Dose: Not Given Insulin Aspart (Insulin Aspart (Novolog) 100 Unit/Ml Vial) 0 unit SQ ACHS [facility]; Protocol Last Admin: 08/02/22 17:14 Dose: Not Given Insulin Detemir (Insulin Detemir (Levemir) 100 Unit/Ml Syr) 30 unit SQ HS [facility] Last Admin: 08/01/22 20:37 Dose: 15 unit Levothyroxine Sodium (Levothyroxine 125 Mcg Tab) 250 mcg PO 0630 [facility] Last Admin: 08/02/22 05:55 Dose: 250 mcg Metoprolol Tartrate (Metoprolol Tartrate 25 Mg Tab) 25 mg PO TID [facility] Last Admin: 08/02/22 16:07 Dose: 25 mg Miscellaneous Information (Pneumonia Protocol Utilized 1 Each Misc) 1 each PO ONCE PRN PRN Reason: Per Protocol Naloxone HCl (Naloxone 0.4 Mg/Ml 1 Ml Vial) 0.2 mg IV Q2M PRN PRN Reason: Opioid Reversal Ondansetron HCl (Ondansetron 4 Mg/2 Ml Vial) 4 mg IVP Q8HR PRN PRN Reason: Nausea And Vomiting Last Admin: 07/24/22 22:15 Dose: 4 mg Pantoprazole Sodium (Pantoprazole 40 Mg Tablet) 40 mg PO DAILY [facility] Last Admin: 08/02/22 11:15 Dose: 40 mg Sodium Bicarbonate (Sodium Bicarbonate Tab 650 Mg Tab) 650 mg PO TID [facility] Last Admin: 08/02/22 16:36 Dose: 650 mg Tamsulosin HCl (Tamsulosin 0.4 Mg Cap.Er.24h) 0.4 mg PO PC-SUPPER [facility] Last Admin: 08/02/22 17:52 Dose: 0.4 mg Torsemide (Torsemide 20 Mg Tab) 40 mg PO DAILY [facility] Last Admin: 08/02/22 11:14 Dose: 40 mg On examination: VITAL SIGNS: 97.6, 71, 16, 133/72, 92% room air GENERAL APPEARANCE: Laying in bed, comfortable HEENT: Normal external appearance of nose and ear. Oral cavity normal EYES: Pupils equal. Conjunctiva normal. NECK: JVD not raised. Mass not palpable. RESPIRATORY: Respiratory effort normal. Lungs decreased breath sounds. CARDIOVASCULAR: First and second sounds normal. Some edema. ABDOMEN: Soft. Liver and spleen not palpable. No tenderness. No mass palpable. PSYCHIATRY: Able to answer simple questions. Mood and affect normal. INVESTIGATIONS, reviewed in the clinical context: 08/02/2022: Potassium 3.6 BUN 55 creatinine 3.34 08/01/2022: Potassium 3.5. 56 creatinine 3.82 07/31/2022: Potassium 3.2 BUN 61 creatinine 4.09 WBC 12.1 hemoglobin 7.3 platelets 335 sodium 140 potassium 3.5 BUN 59.7 creati nine 4.4 Assessment and plan: -Acute kidney injury secondary to ATN secondary to hypertension and worsening with medications.: Improvement Creatinine was 2.01 on presentation patient went up to 4.8. Creatinine February 2021 was 1.0 -Acute diarrhea, better. Likely antibiotic associated -Hyponatremia: Corrected -Metabolic acidosis due to severe acute kidney injury injury: Corrected -Acute cholecystitis followed by an upper scopic cholecystectomy by Dr. Schilling on July 18 -Acute fluid overload, IV Lasix discontinued -Left lower lobe Pneumonia suspected gram-negative organism: Improved IV Zosyn: Completed course -Diabetes mellitus type 2, chronically on insulin Levemir. Follow Accu-Cheks -Anemia, iron deficiency Received IV iron. On Aranesp -CAD with a prior history of stent and CABG Aspirin, Lipitor, Lopressor -Hypothyroid On Synthroid -Essential hypertension Norvasc, Lipitor -GERD On PPI -Urinary retention possibly from blood outflow obstruction Seen by urology. On Flomax. Armenta catheter DC trial before discharge.. Patient on diabetic since yesterday. Kidney function improving. DC trial of Armenta in the morning.
[2022-08-02 21:39] LABS: Glucose,Whole Blood 256 mg/dL (70-110)
[2022-08-02] MEDS: INSULIN DETEMIR (LEVEMIR) 100 UNIT/ML SYR SQ SCH (21:55)
[2022-08-02] MEDS: HYDROmorphone 0.5 MG/0.5 ML SYRINGE IVP PRN (21:55)
[2022-08-03] MEDS: LEVOTHYROXINE 125 MCG TAB PO SCH (06:29)
[2022-08-03 06:33] LABS: Glucose,Whole Blood 110 mg/dL (70-110)
[2022-08-03] MEDS: INSULIN ASPART (NovoLOG) 100 UNIT/ML VIAL SQ SCH ×3 (06:34→17:55)
[2022-08-03 09:12] LABS: Glucose,Whole Blood 288 mg/dL (70-110)
[2022-08-03] MEDS: amLODIPine 5 MG TAB PO SCH (09:43)
[2022-08-03] MEDS: ASPIRIN 81 MG PO SCH (09:44)
[2022-08-03] MEDS: FENOFIBRATE 160 MG TAB PO SCH (09:45)
[2022-08-03] MEDS: ATORVASTATIN 40 MG TAB PO SCH (09:45)
[2022-08-03] MEDS: FOLIC ACID 1 MG TAB PO SCH (09:46)
[2022-08-03] MEDS: METOPROLOL TARTRATE 25 MG TAB PO SCH ×2 (09:48→15:49)
[2022-08-03] MEDS: PANTOPRAZOLE 40 MG TABLET PO SCH (09:49)
[2022-08-03] MEDS: SODIUM BICARBONATE TAB 650 MG TAB PO SCH ×2 (09:49→15:49)
[2022-08-03] MEDS: TORSEMIDE 20 MG TAB PO SCH (09:50)
[2022-08-03] MEDS: HEPARIN SODIUM,PORCINE/PF 5,000 UNIT/0.5 ML SYRINGE SQ SCH (10:13)
[2022-08-03 11:17] LABS: African American GFR (CKD) 21 (>60 ml/min/1.73 sqM); Anion Gap 10 mmol/L; Blood Urea Nitrogen 56 mg/dL (9-20); Calcium 7.7 mg/dL (8.4-10.2); Carbon Dioxide 35 mmol/L (22-30); Chloride 95 mmol/L (98-107); Glucose 53 mg/dL (74-99); Non-African American GFR(CKD) 18 (>60 ml/min/1.73 sqM); Potassium 3.6 mmol/L (3.5-5.1); Sodium 140 mmol/L (137-145)
--- NOTE | 2022-08-03 11:38 | P.PN ---
Subjective Patient is seen in follow-up for acute kidney injury. Renal function was worsening the last few days. Creatinine decreased to 4.8 yesterday. On IV Lasix. Nonoliguric. Has Armenta catheter for urinary retention. Nonoliguric. Oral intake fair. Blood pressure not low. Serum creatinine continues to decrease and is down to 3.3 yesterday No significant diarrhea today Objective - Vital Signs Vital signs: Vital Signs Temp 98.6 F 08/03/22 07:02 Pulse 65 08/03/22 09:41 Resp 14 08/03/22 07:02 BP 128/72 08/03/22 09:41 Pulse Ox 94 L 08/03/22 07:02 FiO2 Intake & Output 08/02/22 08/03/22 08/03/22 18:59 06:59 18:59 Intake Total 480 180 Output Total 525 1700 425 Balance -45 -1700 -245 Intake: Oral 480 180 Output: Urine 525 1700 425 Other: Voiding Method Indwelling Catheter Indwelling Catheter Indwelling Catheter # Bowel Movements 1 - Exam Awake, comfortable, in no acute distress Examination of the heart S1 and S2 Examination of the lungs bilateral breath sounds are heard Abdomen is soft nontender Examination lower extremity shows no significant edema. Bilateral BKA - Labs CBC & Chem 7: 07/30/22 05:35 08/03/22 10:31 Labs: Abnormal Lab Results - Last 24 Hours (Table) 08/02/22 08/02/22 08/02/22 Range/Units 11:00 16:24 21:37 Chloride (98-107) mmol/L Carbon Dioxide 33 H (22-30) mmol/L BUN 55 H (9-20) mg/dL Creatinine 3.34 H (0.66-1.25) mg/dL Glucose (74-99) mg/dL POC Glucose (mg/dL) 151 H 256 H (70-110) mg/dL Calcium 7.7 L (8.4-10.2) mg/dL 08/03/22 08/03/22 Range/Units 09:11 10:31 Chloride 95 L (98-107) mmol/L Carbon Dioxide 35 H (22-30) mmol/L BUN 56 H (9-20) mg/dL Creatinine 3.33 H (0.66-1.25) mg/dL Glucose 53 L (74-99) mg/dL POC Glucose (mg/dL) 288 H (70-110) mg/dL Calcium 7.7 L (8.4-10.2) mg/dL Assessment and Plan Assessment: 1. Acute kidney injury secondary to ATN secondary to hypotension and further worsened with the use of Cozaar and Kerendia. Creatinine was 2 on admission and was down to 3.8 . No hydronephrosis noted on CAT scan. Creatinine in February 2021 was as low as 1.0. 2. Hyponatremia secondary to acute kidney injury. Improved. Stable today. 3. Metabolic acidosis secondary to acute kidney injury and IV fluids. On oral bicarbonate. 4. Pneumonia maintained on antibiotics. 5. Gallstones with concern for cholecystitis been followed by surgery. Status post cholecystectomy 07/23/2022. 6. Diabetes mellitus. 7. Hypertension with chronic kidney disease. 8. Anemia. Iron deficiency noted. On Aranesp. s/p IV iron. 9. History of coronary disease status post cardiac stenting and CABG. 10. Rule out chronic disease. Patient does have 1+ proteinuria which is most likely secondary to underlying diabetic kidney disease. 11. Hypomagnesemia from poor intake. Replaced. Better. 12. Urinary retention. Armenta catheter placed. On Flomax. Urology following. 13. Volume overload, improved Plan: Renal function continues to improve. Continue with Armenta catheter Continue oral diuretics Check with urology before removing Armenta catheter follow-up as outpatient in about 1 week's time
[2022-08-03 11:58] LABS: Glucose,Whole Blood 69 mg/dL (70-110)
[2022-08-03 12:28] LABS: Glucose,Whole Blood 81 mg/dL (70-110)
[2022-08-03] MEDS: LACTATED RINGERS 1,000 ML IV SCH (12:40)
[2022-08-03 14:11] VITALS: BP 108/62; PULSE 69; RESP 21; TEMP 98.5
[2022-08-03 17:23] LABS: Glucose,Whole Blood 168 mg/dL (70-110)
[2022-08-03] MEDS: TAMSULOSIN 0.4 MG CAP.ER.24H PO SCH (17:54)
--- NOTE | 2022-08-03 18:30 | P.DS ---
Providers Date of admission: 07/20/22 12:19 Expected date of discharge: 08/03/22 Attending physician: Johny Granado Consults: 07/19/22 00:07 Consult Physician Routine Consulting Provider: Manoj Ferris Consult Reason/Comments: lll pneumonia Do you want consulting provider notified?: Yes 07/21/22 14:37 Consult Physician Routine Consulting Provider: Leti Menard Consult Reason/Comments: Acute kidney injury Do you want consulting provider notified?: Yes 07/24/22 12:57 Consult Physician Routine Consulting Provider: Leti Menard Consult Reason/Comments: renal insufficiency Do you want consulting provider notified?: Yes 07/25/22 10:00 Consult Physician Routine Consulting Provider: Eric Nguyen Consult Reason/Comments: retention Do you want consulting provider notified?: Yes Primary care physician: Johny Granado [facility] Course: Presenting complaint: Tired Hospital course: I'm rounding for Dr. Johny Granado. Patient admitted with acute kidney injury with ATN secondary to hypertension, low-sodium, metabolic acidosis, pneumonia, urinary retention and a Armenta catheter placed. Slight abnormalities, suspect underlying chronic kidney disease. 07/30/2022: Laying in bed. Eating fair. Had to 3 BMs yesterday. Slightly loose. No abdominal pain. No fever no chills. Tired. Armenta catheter. Making urine. Remains on IV Lasix. IV Zosyn. 07/31/2022: In bed. Oral intake fair. Had BM. Good urine output. On IV Lasix, IV Zosyn. Some improvement in renal function. 08/01/2022: Patient had some loose stools. IV Zosyn been discontinued. We'll check for C. diff. Oral intake fair. Improvement in creatinine. 08/02/2022: Loose bowels much improved. Oral intake better. IV Lasix discontinued. On oral Demadex. 08/03/2022: Doing well. Breathing well. Pulse ox on room air. Will DC on Demadex. Cleared by nephrology. He'll follow-up in the outpatient. Discussed with case planner. Armenta discontinued. Making urine. Discussion and discharge planning more than 35 minutes On examination: VITAL SIGNS: 98.6, 65, 14, 131/67, 94% room air GENERAL APPEARANCE: Laying in bed, comfortable HEENT: Normal external appearance of nose and ear. Oral cavity normal EYES: Pupils equal. Conjunctiva normal. NECK: JVD not raised. Mass not palpable. RESPIRATORY: Respiratory effort normal. Lungs decreased breath sounds. CARDIOVASCULAR: First and second sounds normal. Some edema. ABDOMEN: Soft. Liver and spleen not palpable. No tenderness. No mass palpable. PSYCHIATRY: Able to answer simple questions. Mood and affect normal. INVESTIGATIONS, reviewed in the clinical context: 08/03/2022: Potassium 3.6 BUN 56 creatinine 3.33 08/02/2022: Potassium 3.6 BUN 55 creatinine 3.34 WBC 12.1 hemoglobin 7.3 platelets 335 sodium 140 potassium 3.5 BUN 59.7 crea tinine 4.4 Assessment and plan: -Acute kidney injury secondary to ATN secondary to hypertension and worsening with medications.: Improvement Creatinine was 2.01 on presentation patient went up to 4.8. Creatinine February 2021 was 1.0 -Acute diarrhea, better. Likely antibiotic associated -Hyponatremia: Corrected -Metabolic acidosis due to severe acute kidney injury injury: Corrected -Acute cholecystitis followed by an upper scopic cholecystectomy by Dr. Schilling on July 18 -Acute fluid overload, IV Lasix discontinued -Left lower lobe Pneumonia suspected gram-negative organism: Improved IV Zosyn: Completed course -Diabetes mellitus type 2, chronically on insulin Levemir. Follow Accu-Cheks -Anemia, iron deficiency Received IV iron. On Aranesp -CAD with a prior history of stent and CABG Aspirin, Lipitor, Lopressor -Hypothyroid On Synthroid -Essential hypertension Norvasc, Lipitor -GERD On PPI -Urinary retention possibly from blood outflow obstruction Seen by urology. On Flomax. Armenta catheter discontinued Disposition: Home with home care Plan - Discharge Summary Discharge Rx Participant: No New Discharge Prescriptions: New amLODIPine [Norvasc] 5 mg PO DAILY #30 tab Torsemide [Demadex] 40 mg PO DAILY #30 tab Tamsulosin [Flomax] 0.4 mg PO PC-SUPPER #30 cap Continue Insulin Lispro [humaLOG Kwikpen] See Protocol SQ AC-TID Fenofibrate 160 mg PO DAILY Metoprolol Tartrate 25 mg PO TID Atorvastatin [Lipitor] 40 mg PO DAILY Aspirin 81 mg PO DAILY 90 Days #90 chew Ergocalciferol (Vitamin D2) [Drisdol (50,000 Iu)] 1,250 mcg PO MO Levothyroxine Sodium [Synthroid] 200 mcg PO DAILY Insulin Lispro [humaLOG Kwikpen] 5 unit SQ AC-TID Folic Acid 1 mg PO DAILY 90 Days #90 tab Insulin Glargine,Hum.rec.anlog [Toujeo Solostar] 30 units SQ HS Levothyroxine Sodium [Synthroid] 50 mcg PO DAILY Omeprazole 40 mg PO DAILY Finerenone [Kerendia] 10 mg PO HS Discontinued Furosemide [Lasix] 40 mg PO BID Losartan [Cozaar] 50 mg PO DAILY Discharge Medication List Fenofibrate 160 mg PO DAILY 03/31/14 [History] Insulin Lispro [humaLOG Kwikpen] See Protocol SQ AC-TID 03/31/14 [History] Atorvastatin [Lipitor] 40 mg PO DAILY 05/24/20 [History] Metoprolol Tartrate 25 mg PO TID 05/24/20 [History] Aspirin 81 mg PO DAILY 90 Days #90 chew 12/16/20 [Rx] Folic Acid 1 mg PO DAILY 90 Days #90 tab 12/27/20 [Rx] Ergocalciferol (Vitamin D2) [Drisdol (50,000 Iu)] 1,250 mcg PO MO 06/02/21 [History] Insulin Glargine,Hum.rec.anlog [Toujeo Solostar] 30 units SQ HS 06/02/21 [History] Levothyroxine Sodium [Synthroid] 50 mcg PO DAILY 06/02/21 [History] Levothyroxine Sodium [Synthroid] 200 mcg PO DAILY 06/02/21 [History] Insulin Lispro [humaLOG Kwikpen] 5 unit SQ AC-TID 07/25/21 [History] Finerenone [Kerendia] 10 mg PO HS 07/18/22 [History] Omeprazole 40 mg PO DAILY 07/18/22 [History] Tamsulosin [Flomax] 0.4 mg PO PC-SUPPER #30 cap 08/03/22 [Rx] Torsemide [Demadex] 40 mg PO DAILY #30 tab 08/03/22 [Rx] amLODIPine [Norvasc] 5 mg PO DAILY #30 tab 08/03/22 [Rx] Follow up Appointment(s)/Referral(s): Leti Menard MD [STAFF PHYSICIAN] - 08/14/22 11:20 am Johny Granado MD [Primary Care Provider] - 1-2 days [facility], [NON-STAFF] - 1-2 Days Manoj Ferris MD [STAFF PHYSICIAN] - 1 Week Prosper Schilling MD [STAFF PHYSICIAN] - 08/09/22 3:45 pm Patient Instructions/Handouts: *Surgery [facility] - ([facility]) Laparoscopic Cholecystectomy, Viral Pneumonia (DC), Acute Kidney Injury (DC), Urinary Retention in Men (GEN) Activity/Diet/Wound Care/Special Instructions: wound care orders and follow up
--- NOTE | 2022-08-06 10:49 | CDI ---
Documentation Clarification Form Date: 08/06/22 From: Tyra Ahuja Admit Date: 07/20/2022 12:19:00 PM Patient Name: Cruz Sorenson V Visit Number: [id number] Discharge Date: 08/03/2022 06:41:00 PM ATTENTION: The Clinical Documentation Specialists (CDI) and [facility] Coding Staff appreciate your assistance in clarifying documentation. Please respond to the clarification below the line at the bottom and electronically sign. The CDI & [facility] Coding staff will review the response and follow-up if needed. Please note: Queries are made part of the Legal Health Record. If you have any questions, please contact the author of this message via ITS. Dr. Johny Granado, Your patient has the documented diagnosis of diastolic congestive heart failure in your 07/20 PN. Additional information regarding the acuity of diastolic CHF is requested. History/Risk Factors: CAD, S/P CABG & cardiac stents, pneumonia ATN, calculus of GB and acute & chronic cholecystitis wo obstruction, COPD w lower resp infection, S/P non-pressure ulcer of Left BKA, anemia in chronic kidney disease, hypotension Clinical Indicators: DORIAN secondary to ATN secondary to hypotension and further worsened with the use of Cozaar and Kerendia. Volume overload. VS/Pulse OX: T 98.4, P 66, R 18, BP 118/66, O2 97 on 2L NC BNP: 592 (07/18) 36693 (07/25) Echocardiogram Results: 07/25 Chest X Ray: Expiratory exam, basilar atelectasis versus pneumonia, difficult to exclude congestive heart failure. Treatment: IV Lasix 20 mg IV, stop Cozaar & Kerendia In your professional opinion, can you please clarify the acuity of diastolic CHF if known? [ ] Acute Diastolic Heart Failure (preserved EF) [ ] Chronic Diastolic Heart Failure (preserved EF) [ ] Acute on Chronic Diastolic Heart Failure (preserved EF) [ ] Other, please specify [ ] Unable to determine SOLEDADD
--- NOTE | 2022-08-06 11:05 | CDI ---
Documentation Clarification Form Date: 08/06/22 From: Tyra Ahuja Admit Date: 07/20/2022 12:19:00 PM Patient Name: Cruz Sorenson V Visit Number: [id number] Discharge Date: 08/03/2022 06:41:00 PM ATTENTION: The Clinical Documentation Specialists (CDI) and [facility] Coding Staff appreciate your assistance in clarifying documentation. Please respond to the clarification below the line at the bottom and electronically sign. The CDI & [facility] Coding staff will review the response and follow-up if needed. Please note: Queries are made part of the Legal Health Record. If you have any questions, please contact the author of this message via ITS. Dr. Johny Granado, The patients principal diagnosis the diagnosis that was chiefly responsible for the admission - has not been clearly identified and clarification is requested. The patient presented with acute abdominal pain, possible gallstone in gallbladder, Status post left lower lobe consolidation, treat with broad- spectrum antibiotics and placed in observation on 07/18. History/Risk factors: CAD, S/P CABG & cardiac stents, pneumonia ATN, calculus of GB and acute & chronic cholecystitis wo obstruction, COPD w lower resp infection, S/P non-pressure ulcer of Left BKA, anemia in chronic kidney disease, hypotension Clinical Indicators: Patient was found to have calculus of GB and acute & chronic cholecystitis wo obstruction with planned lap aneudy on 07/23. In addition, he has left lower lobe community-acquired pneumonia, on Rocephin. Lab findings: 07/18 CHESTWO: Consolidation in the posterior left lower lobe with trace pleural effusion. Findings could correlate with pneumonia or atelectasis from the adjacent pleural effusion. Vital Signs: T 98.1, P 70, R 17, BP 129/64, O2 Sat 95 on room air In your professional opinion, can you please clarify which diagnosis, after study, was the reason chiefly responsible for the admission? [ ] Calculus of GB and acute & chronic cholecystitis wo obstruction [ ] Left lower lobe community acquired pneumonia [ ] ATN [ ] Other, please specify [ ] Unable to determine MTDD
--- NOTE | 2022-08-06 11:20 | CDI ---
Documentation Clarification Form Date: 08/06/22 From: Tyra Ahuja Admit Date: 07/20/2022 12:19:00 PM Patient Name: Cruz Sorenson V Visit Number: [id number] Discharge Date: 08/03/2022 06:41:00 PM ATTENTION: The Clinical Documentation Specialists (CDI) and [facility] Coding Staff appreciate your assistance in clarifying documentation. Please respond to the clarification below the line at the bottom and electronically sign. The CDI & [facility] Coding staff will review the response and follow-up if needed. Please note: Queries are made part of the Legal Health Record. If you have any questions, please contact the author of this message via ITS. Dr. Johny Granado, The patient presented with the following clinical indicators. Additional clarification regarding the etiology/cause of the clinical indicators is requested. History/Risk Factors: CAD, S/P CABG & cardiac stents, pneumonia ATN, calculus of GB and acute & chronic cholecystitis wo obstruction, COPD w lower resp infection, S/P non-pressure ulcer of Left BKA, anemia in chronic kidney disease, hypotension Clinical Indicators: Per your 07/29 PN it states "Status post cholecystectomy with sepsis with acute tubular necrosis, acute renal insufficiency, improving with Lasix. Continue with broad-spectrum antibiotics. WBC: 14.74 (07/20), 13.08 (07/21), 11.65 (07/27), 13.30 (07/29, 12.12 (07/30) Lactic acid: none Blood cultures: negative Vitals signs: 07/20 99.1, P 71, R 18, BP 121/58, O2 94 RA Treatment: IV Rocephin, IV Zosyn, IV fluids In your professional opinion, please clarify if these findings signify one of the following conditions: [ ] Sepsis POA [ ] Sepsis, Not POA [ ] Sepsis ruled out [ ] Severe Sepsis with organ failure [ ] Septic Shock [ ] SIRS, without underlying infectious process [ ] Other, please specify [ ] Unable to determine SIRS Criteria: 2 or more of the following may indicate SIRS -Temperature < 96.8F (36C) or > 101.0F (38.3C) -Heart Rate > 90 bpm -Respiratory Rate > 20 breaths/min or PaCO2 < 32 mmHg -White Blood Cell Count > 12,000 or < 4,000 cells/mm3 or > 10% bands MTDD
--- NOTE | 2022-08-10 20:20 | PN ---
PROGRESS NOTE Acute on chronic diastolic heart failure with preserved ejection fraction. Left lower lobe community-acquired pneumonia and acute on chronic cholecystitis, all were responsible for the admission. Severe sepsis POA. BELEN / JENNAN: [id number] /
== END 2022-08-03 18:41 | disposition home health service (06) | DRG 417 ==
LOC: EC 12:14 → 6NMEDSUR 19:06 → OBSVTOIN 07-20 12:19
PROVIDERS: ADMIT Family Medicine; ATTEND Family Medicine
PROC: 0FT44ZZ Resection of Gallbladder, Percutaneous Endoscopic Approach (ICD-10-PCS; principal; 2022-07-23 11:30)
PROC: 05HD33Z Insertion of Infusion Device into Right Cephalic Vein, Percutaneous Approach (ICD-10-PCS; 2022-07-24 08:35)
DX: K80.12 Calculus of gallbladder with acute and chronic cholecystitis without obstruction (principal); A41.9 Sepsis, unspecified organism; I50.33 Acute on chronic diastolic (congestive) heart failure; J18.9 Pneumonia, unspecified organism; N17.0 Acute kidney failure with tubular necrosis; R65.20 Severe sepsis without septic shock; E87.1 Hypo-osmolality and hyponatremia; I47.20 Ventricular tachycardia, unspecified; E87.20 Acidosis, unspecified; I13.0 Hypertensive heart and chronic kidney disease with heart failure and stage 1 through stage 4 chronic kidney disease, or unspecified chronic kidney disease; J44.0 Chronic obstructive pulmonary disease with (acute) lower respiratory infection; L97.822 Non-pressure chronic ulcer of other part of left lower leg with fat layer exposed; N13.8 Other obstructive and reflux uropathy; J98.11 Atelectasis; T87.44 Infection of amputation stump, left lower extremity; D63.1 Anemia in chronic kidney disease; E11.649 Type 2 diabetes mellitus with hypoglycemia without coma; I95.9 Hypotension, unspecified; K82.A1 Gangrene of gallbladder in cholecystitis; T87.89 Other complications of amputation stump; E11.622 Type 2 diabetes mellitus with other skin ulcer; E11.22 Type 2 diabetes mellitus with diabetic chronic kidney disease; E11.40 Type 2 diabetes mellitus with diabetic neuropathy, unspecified; E11.51 Type 2 diabetes mellitus with diabetic peripheral angiopathy without gangrene; N18.30 Chronic kidney disease, stage 3 unspecified; E11.65 Type 2 diabetes mellitus with hyperglycemia; I48.0 Paroxysmal atrial fibrillation; Z79.4 Long term (current) use of insulin; Z89.511 Acquired absence of right leg below knee; Z89.512 Acquired absence of left leg below knee; Z91.15 Patient's noncompliance with renal dialysis; Z28.310 Unvaccinated for COVID-19; I25.5 Ischemic cardiomyopathy; E78.5 Hyperlipidemia, unspecified; I25.10 Atherosclerotic heart disease of native coronary artery without angina pectoris; D50.9 Iron deficiency anemia, unspecified; E83.42 Hypomagnesemia; N40.1 Benign prostatic hyperplasia with lower urinary tract symptoms; R33.8 Other retention of urine; R33.9 Retention of urine, unspecified; L08.9 Local infection of the skin and subcutaneous tissue, unspecified; K21.9 Gastro-esophageal reflux disease without esophagitis; I25.2 Old myocardial infarction; E03.9 Hypothyroidism, unspecified; M19.042 Primary osteoarthritis, left hand; M19.041 Primary osteoarthritis, right hand; K59.00 Constipation, unspecified; Z79.82 Long term (current) use of aspirin; H93.13 Tinnitus, bilateral; E66.9 Obesity, unspecified; Z68.32 Body mass index [BMI] 32.0-32.9, adult; H91.90 Unspecified hearing loss, unspecified ear; Z79.890 Hormone replacement therapy; Z79.899 Other long term (current) drug therapy; Z87.891 Personal history of nicotine dependence; Z95.810 Presence of automatic (implantable) cardiac defibrillator; Z95.1 Presence of aortocoronary bypass graft; Z95.5 Presence of coronary angioplasty implant and graft; Z71.3 Dietary counseling and surveillance
CPT/HCPCS: 36410; 36415; 71045; 71046; 71250; 74176; 76705; 76937; 78227; 80048; 80053; 81001; 82150; 82728; 83036; 83540; 83550; 83690; 83735; 83880; 84484; 85025; 85027; 87040; 87070; 87205; 88304; 94760; 96361; 96374; 96375; 96376; 99285

== ENCOUNTER 2022-08-06 14:44 | Inpatient (IN) | payer MEDICARE ==
--- NOTE | 2022-08-06 15:13 | ED ---
General Adult HPI - General Chief complaint: Shortness of Breath Stated complaint: hypoxia Time Seen by Provider: 08/06/22 15:02 Source: patient, EMS, RN notes reviewed Mode of arrival: EMS Limitations: no limitations - History of Present Illness Initial comments: Patient is a pleasant 66-year-old male presenting to the emergency department for thoughts of breath. Onset of symptoms was today. Patient was recently in the hospital for cholecystectomy. Patient also had pneumonia that time however he feels that has resolved. Patient had complicated HPI. Patient was discharged. Patient no longer has a [place] catheter. No recent cough. No fever. There was discussion of having patient take oxygen at nighttime however this has not yet started. Patient feels symptoms are improved while on oxygen in the emergency department. - Related Data Home Medications Medication Instructions Recorded Confirmed Fenofibrate 160 mg PO DAILY 03/31/14 07/18/22 Insulin Lispro [humaLOG Kwikpen] See Protocol SQ AC-TID 03/31/14 07/18/22 Atorvastatin [Lipitor] 40 mg PO DAILY 05/24/20 07/18/22 Metoprolol Tartrate 25 mg PO TID 05/24/20 07/18/22 Ergocalciferol (Vitamin D2) 1,250 mcg PO MO 06/02/21 07/18/22 [Drisdol (50,000 Iu)] Insulin Glargine,Hum.rec.anlog 30 units SQ HS 06/02/21 07/18/22 [Sofia Gomesostdottie] Levothyroxine Sodium [Synthroid] 50 mcg PO DAILY 06/02/21 07/18/22 Levothyroxine Sodium [Synthroid] 200 mcg PO DAILY 06/02/21 07/25/21 Insulin Lispro [humaLOG Kwikpen] 5 unit SQ AC-TID 07/25/21 07/18/22 Finerenone [Kerendia] 10 mg PO HS 07/18/22 07/18/22 Omeprazole 40 mg PO DAILY 07/18/22 07/18/22 Previous Rx's Medication Instructions Recorded Aspirin 81 mg PO DAILY 90 Days #90 chew 12/16/20 Folic Acid 1 mg PO DAILY 90 Days #90 tab 12/27/20 Tamsulosin [Flomax] 0.4 mg PO PC-SUPPER #30 cap 08/03/22 Torsemide [Demadex] 40 mg PO DAILY #30 tab 08/03/22 amLODIPine [Norvasc] 5 mg PO DAILY #30 tab 08/03/22 Allergies Allergy/AdvReac Type Severity Reaction Status Date / Time No Known Allergies Allergy Verified 07/18/22 14:56 Review of Systems ROS Statement: Those systems with pertinent positive or pertinent negative responses have been documented in the HPI. ROS Other: All systems not noted in ROS Statement are negative. Constitutional: Denies: fever Eyes: Denies: eye pain ENT: Denies: ear pain Respiratory: Reports: as per HPI, dyspnea Cardiovascular: Denies: chest pain, palpitations Endocrine: Denies: fatigue Gastrointestinal: Denies: abdominal pain Genitourinary: Denies: dysuria Musculoskeletal: Denies: back pain Skin: Denies: rash Neurological: Denies: weakness Past Medical History Past Medical History: Heart Failure, Diabetes Mellitus, Diabetes Mellitus, Eye Disorder, GERD/Reflux, Hearing Disorder / Deafness, Hyperlipidemia, Hypertension, Myocardial Infarction ([place]), Osteoarthritis (OA), Renal Disease, S kin Disorder, Thyroid Disorder Additional Past Medical History / Comment(s): IDDM type II, neuropathy bilateral hands/forearms/lower legs/feet, WCC pt, bilateral leg edema, [place]. wounds right foot w/wound vac, ischemic cardiomyopathy/AICD, vtach, past medical record documents paroxysmal Afib/pt does not recall this, bilateral lower leg intermittent claudication/PAD, chronic renal disease stage III, anemia- transfusion in December per pt., bilateral tinnitis/[place], hypothyroidchronic renal disease stage III, anemia, bilateral tinnitis/[place], hypothyroid, arthritis bilateral hands with R hand worse, Last Myocardial Infarction Date:: 2006 History of Any Multi-Drug Resistant Organisms: None Reported Past Surgical History: AICD, Coronary Bypass/CABG, Heart Catheterization, Heart Catheterization With Stent, Pacemaker Additional Past Surgical History / Comment(s): PCI with one stent 2006 CABG 3 vessel and AICD, DFTs, aortagram with runoff, colonoscopy, bilateral cataract removals/lens implants, multiple debridements of wounds, left bka Past Anesthesia/Blood Transfusion Reactions: No Reported Reaction Date of Last Stent Placement:: 1998 Type of Cardiac Device: Permanent Pacemaker, AICD Device Placement Date:: 2006 Past Psychological History: No Psychological Hx Reported Smoking Status: Former smoker Past Alcohol Use History: None Reported Past Drug Use History: None Reported - Past Family History Sister(s) Additional Family Medical History / Comment(s): Pt has a sister with COPD, another sister with diabetes/copd/htn and another sister with diabetes. Father Family Medical History: Myocardial Infarction ([place]) Additional Family Medical History / Comment(s): Father of a [place] at the age of 75 yrs. Brother(s) Family Medical History: Coronary Artery Disease (CAD), CVA/TIA, Diabetes Mellitus, Myocardial Infarction ([place]) Additional Family Medical History / Comment(s): One brother had a [place] at 38yrs and at age 48yrs. Another brother is alive and had a stroke. Mother Family Medical History: Diabetes Mellitus, Renal Disease Additional Family Medical History / Comment(s): Mother at age 62 from renal failure General Exam Limitations: no limitations General appearance: alert, in no apparent distress Head exam: Present: normocephalic Eye exam: Present: normal appearance Neck exam: Present: normal inspection Respiratory exam: Present: normal lung sounds bilaterally Cardiovascular Exam: Present: regular rate, normal rhythm GI/Abdominal exam: Present: soft. Absent: tenderness Extremities exam: Present: normal inspection. Absent: pedal edema, calf tenderness Neurological exam: Present: alert Psychiatric exam: Present: normal affect, normal mood Skin exam: Present: normal color Course Vital Signs 08/06/22 08/06/22 14:46 15:08 Temperature 98.3 F Pulse Rate 65 65 Respiratory 20 Rate Blood Pressure 105/52 O2 Sat by Pulse 93 L 99 Oximetry EKG Findings - EKG Comments: EKG Findings:: Paced rhythm with rate of 64. IL 158. QRS 146. QT 461. QTC 471. Normal axis. Wide-complex QRS. Nonspecific ST-T. Medical Decision Making - Medical Decision Making Patient reevaluated. Patient and family updated. Clinical presentation more consistent with congestive heart failure. Family adds that patient has been gaining weight recently. Case discussed with Dr. Granado, who will admit his patient. Patient and family updated. Consults will be placed for pulmonary, cardiology, and nephrology. Dialysis is limited at this time secondary to HPI. - Lab Data Result diagrams: 08/06/22 15:20 08/06/22 15:20 Lab Results 11/07/22 11/07/22 11/07/22 Range/Units 15:20 15:20 15:20 WBC 11.2 H (3.8-10.6) k/uL RBC 2.52 L (4.30-5.90) m/uL Hgb 7.4 L (13.0-17.5) gm/dL Hct 21.8 L (39.0-53.0) % MCV 86.3 (80.0-100.0) fL MCH 29.2 (25.0-35.0) pg MCHC 33.9 (31.0-37.0) g/dL RDW 14.5 (11.5-15.5) % Plt Count 380 (150-450) k/uL MPV 8.0 Neutrophils % 75 % Lymphocytes % 14 % Monocytes % 7 % Eosinophils % 3 % Basophils % 1 % Neutrophils # 8.4 H (1.3-7.7) k/uL Lymphocytes # 1.5 (1.0-4.8) k/uL Monocytes # 0.7 (0-1.0) k/uL Eosinophils # 0.3 (0-0.7) k/uL Basophils # 0.1 (0-0.2) k/uL Hypochromasia Slight PT 12.3 H (9.0-12.0) sec INR 1.2 H (<1.2) APTT 24.1 (22.0-30.0) sec D-Dimer 3.70 H (<0.60) mg/L FEU Sodium 135 L (137-145) mmol/L Potassium 3.6 (3.5-5.1) mmol/L Chloride 95 L (98-107) mmol/L Carbon Dioxide 35 H (22-30) mmol/L Anion Gap 5 mmol/L BUN 62 H (9-20) mg/dL Creatinine 3.01 H (0.66-1.25) mg/dL Est GFR (CKD-EPI)AfAm 24 (>60 ml/min/1.73 sqM) Est GFR (CKD-EPI)NonAf 21 (>60 ml/min/1.73 sqM) Glucose 161 H (74-99) mg/dL Plasma Lactic Acid Gianluca (0.7-2.0) mmol/L Calcium 7.8 L (8.4-10.2) mg/dL Total Bilirubin 0.3 (0.2-1.3) mg/dL AST 26 (17-59) U/L ALT 12 (4-49) U/L Alkaline Phosphatase 87 (38-126) U/L Troponin I (0.000-0.034) ng/mL NT-Pro-B Natriuret Pep pg/mL Total Protein 5.8 L (6.3-8.2) g/dL Albumin 2.6 L (3.5-5.0) g/dL Coronavirus (PCR) (Not Detectd) Influenza Type A RNA (Not Detectd) Influenza Type B (PCR) (Not Detectd) 08/06/22 08/06/22 08/06/22 Range/Units 15:20 15:20 15:20 WBC (3.8-10.6) k/uL RBC (4.30-5.90) m/uL Hgb (13.0-17.5) gm/dL Hct (39.0-53.0) % MCV (80.0-100.0) fL MCH (25.0-35.0) pg MCHC (31.0-37.0) g/dL RDW (11.5-15.5) % Plt Count (150-450) k/uL MPV Neutrophils % % Lymphocytes % % Monocytes % % Eosinophils % % Basophils % % Neutrophils # (1.3-7.7) k/uL Lymphocytes # (1.0-4.8) k/uL Monocytes # (0-1.0) k/uL Eosinophils # (0-0.7) k/uL Basophils # (0-0.2) k/uL Hypochromasia PT (9.0-12.0) sec INR (<1.2) APTT (22.0-30.0) sec D-Dimer (<0.60) mg/L FEU Sodium (137-145) mmol/L Potassium (3.5-5.1) mmol/L Chloride (98-107) mmol/L Carbon Dioxide (22-30) mmol/L Anion Gap mmol/L BUN (9-20) mg/dL Creatinine (0.66-1.25) mg/dL Est GFR (CKD-EPI)AfAm (>60 ml/min/1.73 sqM) Est GFR (CKD-EPI)NonAf (>60 ml/min/1.73 sqM) Glucose (74-99) mg/dL Plasma Lactic Acid Gianluca 1.2 (0.7-2.0) mmol/L Calcium (8.4-10.2) mg/dL Total Bilirubin (0.2-1.3) mg/dL AST (17-59) U/L ALT (4-49) U/L Alkaline Phosphatase (38-126) U/L Troponin I 0.177 H* (0.000-0.034) ng/mL NT-Pro-B Natriuret Pep 8570 pg/mL Total Protein (6.3-8.2) g/dL Albumin (3.5-5.0) g/dL Coronavirus (PCR) (Not Detectd) Influenza Type A RNA (Not Detectd) Influenza Type B (PCR) (Not Detectd) 08/06/22 08/06/22 Range/Units 15:20 15:20 WBC (3.8-10.6) k/uL RBC (4.30-5.90) m/uL Hgb (13.0-17.5) gm/dL Hct (39.0-53.0) % MCV (80.0-100.0) fL MCH (25.0-35.0) pg MCHC (31.0-37.0) g/dL RDW (11.5-15.5) % Plt Count (150-450) k/uL MPV Neutrophils % % Lymphocytes % % Monocytes % % Eosinophils % % Basophils % % Neutrophils # (1.3-7.7) k/uL Lymphocytes # (1.0-4.8) k/uL Monocytes # (0-1.0) k/uL Eosinophils # (0-0.7) k/uL Basophils # (0-0.2) k/uL Hypochromasia PT (9.0-12.0) sec INR (<1.2) APTT (22.0-30.0) sec D-Dimer (<0.60) mg/L FEU Sodium (137-145) mmol/L Potassium (3.5-5.1) mmol/L Chloride (98-107) mmol/L Carbon Dioxide (22-30) mmol/L Anion Gap mmol/L BUN (9-20) mg/dL Creatinine (0.66-1.25) mg/dL Est GFR (CKD-EPI)AfAm (>60 ml/min/1.73 sqM) Est GFR (CKD-EPI)NonAf (>60 ml/min/1.73 sqM) Glucose (74-99) mg/dL Plasma Lactic Acid Gianluca (0.7-2.0) mmol/L Calcium (8.4-10.2) mg/dL Total Bilirubin (0.2-1.3) mg/dL AST (17-59) U/L ALT (4-49) U/L Alkaline Phosphatase (38-126) U/L Troponin I (0.000-0.034) ng/mL NT-Pro-B Natriuret Pep pg/mL Total Protein (6.3-8.2) g/dL Albumin (3.5-5.0) g/dL Coronavirus (PCR) Not Detected (Not Detectd) Influenza Type A RNA Not Detected (Not Detectd) Influenza Type B (PCR) Not Detected (Not Detectd) - Radiology Data Radiology results: image reviewed (Bilateral infiltrates concerning for fluid overload versus pneumonia) Disposition Clinical Impression: Dyspnea Disposition: ADMITTED IP TO THIS HOSP Is patient prescribed a controlled substance at d/c from ED?: No Referrals: Johny Granado MD [Primary Care Provider] - 1-2 days Time of Disposition: 16:46
[2022-08-06 15:42] LABS: Basophils # (A) 0.1 k/uL (0-0.2); Basophils % (A) 1 %; Eosinophils # (A) 0.3 k/uL (0-0.7); Eosinophils % (A) 3 %; HCT 21.8 % (39.0-53.0); HGB 7.4 gm/dL (13.0-17.5); Hypochromasia Slight; Lymphocytes # (A) 1.5 k/uL (1.0-4.8); Lymphocytes % (A) 14 %; MCH 29.2 pg (25.0-35.0); MCHC 33.9 g/dL (31.0-37.0); MCV 86.3 fL (80.0-100.0); Monocytes # (A) 0.7 k/uL (0-1.0); Monocytes % (A) 7 %; Neutrophils # (A) 8.4 k/uL (1.3-7.7); Neutrophils % (A) 75 %; Platelet Count 380 k/uL (150-450); RBC 2.52 m/uL (4.30-5.90); RDW 14.5 % (11.5-15.5); WBC 11.2 k/uL (3.8-10.6)
[2022-08-06 15:55] LABS: INR 1.2 (<1.2); Partial Thromboplastin Time 24.1 sec (22.0-30.0); Prothrombin Time 12.3 sec (9.0-12.0)
[2022-08-06 15:59] LABS: Albumin 2.6 g/dL (3.5-5.0); Calcium 7.8 mg/dL (8.4-10.2); Potassium 3.6 mmol/L (3.5-5.1); Total Bilirubin 0.3 mg/dL (0.2-1.3); Total Protein 5.8 g/dL (6.3-8.2)
--- NOTE | 2022-08-06 16:18 | XR ---
EXAMINATION TYPE: XR chest 2V DATE OF EXAM: 08/06/2022 COMPARISON: 07/25/2022 TECHNIQUE: PA and lateral views submitted. HISTORY: Shortness of breath FINDINGS: Cardiac device is seen is postsurgical change with bilateral infiltrate and pleural effusion. Diffuse interstitial pattern. No pneumothorax. Hypertrophic and degenerative change of the spine. IMPRESSION: 1. Persistent bilateral infiltrate and pleural effusion correlate for pneumonia otherwise consider CH F.
[2022-08-06] MEDS ORDERED: ASPIRIN 325 MG TAB PO STA (16:47)
[2022-08-06] MEDS ORDERED: HEPARIN SODIUM 1,000 UN/ML (10ML VL) IV PRN (16:53)
[2022-08-06] MEDS ORDERED: HEPARIN SODIUM 1,000 UN/ML (10ML VL) IV ONE (16:53)
[2022-08-06] MEDS: NITROGLYCERIN OINT 1 INCH/GM PACKET TOPICAL SCH ×2 (17:37→21:47)
[2022-08-06] MEDS: SODIUM CHLORIDE 0.9% 1,000 ML IV SCH (17:37)
[2022-08-06] MEDS: HEPARIN SOD,PORK IN 0.45% NACL 25,000 UNIT in 0.45% NACL 1 250ML.BAG IV SCH (17:40)
[2022-08-06 18:20] LABS: Glucose,Whole Blood 279 mg/dL (70-110)
--- NOTE | 2022-08-06 18:43 | CT ---
EXAMINATION TYPE: CT chest wo con DATE OF EXAM: 08/06/2022 COMPARISON: 07/18/2022 HISTORY: Pleural effusion. CT DLP: 469.2 mGycm Automated exposure control for dose reduction was used. Images obtained from the thoracic inlet to the diaphragm with no contrast. There is some infiltrate or atelectasis at both lung bases. There is mild bilateral pleural effusions . Heart size is fairly normal. There is extensive coronary artery calcification. There are sternal wi res. There is cardiac surgery. There is left axillary pacemaker. There are no hilar masses. No medias tinal adenopathy. The thoracic aorta is intact. No aneurysm. The bony thorax is intact. Upper abdomin al soft tissues are intact. IMPRESSION: Bilateral pleural effusions and basilar pulmonary infiltrates and atelectasis which is increased comp ared to the old exam. Abnormality in the right lower lobe mostly new compared to old exam. Atheroscle rotic vascular disease.
[2022-08-06] MEDS: INSULIN ASPART (NovoLOG) 100 UNIT/ML VIAL SQ SCH (19:29)
[2022-08-06 20:28] LABS: Glucose,Whole Blood 201 mg/dL (70-110)
[2022-08-06] MEDS ORDERED: ATORVASTATIN 80 MG TAB PO SCH (21:00)
[2022-08-06] MEDS ORDERED: FUROSEMIDE 10 MG/ML 2 ML VIAL IV SCH (21:00)
[2022-08-06] MEDS: METOPROLOL TARTRATE 25 MG TAB PO SCH (21:40)
[2022-08-06] MEDS: TAMSULOSIN 0.4 MG CAP.ER.24H PO SCH (21:40)
[2022-08-06] MEDS: INSULIN DETEMIR (LEVEMIR) 100 UNIT/ML SYR SQ SCH (21:40)
[2022-08-07 06:10] LABS: Glucose,Whole Blood 73 mg/dL (70-110)
[2022-08-07] MEDS ORDERED: LEVOTHYROXINE 50 MCG TAB PO SCH (06:30)
[2022-08-07] MEDS: LEVOTHYROXINE 125 MCG TAB PO SCH (06:32)
[2022-08-07] MEDS: PANTOPRAZOLE 40 MG TABLET PO SCH (06:32)
[2022-08-07] MEDS ORDERED: FUROSEMIDE 10 MG/ML 4 ML VIAL IV STA (08:53)
[2022-08-07] MEDS ORDERED: ASPIRIN 325 MG TAB PO SCH (09:00)
[2022-08-07] MEDS: FENOFIBRATE 160 MG TAB PO SCH (09:04)
[2022-08-07] MEDS: amLODIPine 5 MG TAB PO SCH (09:04)
[2022-08-07] MEDS: ASPIRIN 81 MG PO SCH (09:04)
[2022-08-07] MEDS: ATORVASTATIN 40 MG TAB PO SCH (09:04)
[2022-08-07] MEDS: FOLIC ACID 1 MG TAB PO SCH (09:04)
[2022-08-07] MEDS: METOPROLOL TARTRATE 25 MG TAB PO SCH ×3 (09:04→21:19)
[2022-08-07] MEDS: NITROGLYCERIN OINT 1 INCH/GM PACKET TOPICAL SCH (09:05)
--- NOTE | 2022-08-07 09:08 | NM ---
EXAMINATION TYPE: NM pul vent and perfuse DATE OF EXAM: 08/07/2022 8:25 AM COMPARISON: CT chest 08/06/2022. CLINICAL INDICATION:Male, 66 years old with history of dyspnea; TECHNIQUE: Utilizing inhalation of 35.4 mCi Tc 99m DTPA aerosol and intravenous injection of 4.9 mCi of Tc 99m MAA, ventilation and perfusion images are acquired post injection in multiple projections. FINDINGS: FINDING: The ventilatory segment of the exam is within normal limits demonstrating normal wash in, equilibrium , and wash out phases. No abnormal areas of air trapping are identified. The initial flow demonstrates no evidence of any flow abnormalities. There is symmetrical and homogen ous flow to the lung patel bilaterally. There is nonsegmental diminished activity identified scattered throughout both lungs. No wedge-shaped perfusion abnormalities identified. IMPRESSION: Low probability for pulmonary embolism. Findings on recent CT chest suggests congestive heart failure changes.
[2022-08-07] MEDS: HEPARIN SOD,PORK IN 0.45% NACL 25,000 UNIT in 0.45% NACL 1 250ML.BAG IV SCH (09:23)
--- NOTE | 2022-08-07 09:55 | P.NPCON ---
History of Present Illness - Reason for Consult acute renal failure - History of Present Illness Reason for consultation: Acute kidney injury History of present illness: Patient is a 66-year-old male seen in renal consultation for acute kidney injury. Patient's creatinine in March 2021 was 1.1. Patient was omitted at this facility in June 2022 and patient's creatinine ranged from 2-5.9. This admission his creatinine is 3. During his previous admission patient was treated for pneumonia and also underwent cholecystectomy. He was noted to have urinary retention and a [place] catheter was removed prior to admission. Patient states he has been voiding but has noticed decreased urine output and more straining. He did undergo straight catheterization once this admission per nurse. Patient presented to the hospital this time with shortness of breath that began same day of admission. Denies fever or chills. VQ scan showed low probability of PE. Chest CT since just above bilateral pleural effusion and infiltrates. Patient has long-standing history of diabetes with bilateral [id number]-gxy-lmad amputations. He also has history of coronary artery disease with cardiac stenting and CABG in the past. He denies use of nonsteroidals. Patient has been having loose stools but better. No vomiting. Oral intake fair. Vital signs are stable. General: Awake. No acute distress. HEENT: Head exam is unremarkable. LUNGS: Breath sounds decreased. HEART: Rate and Rhythm are regular. ABDOMEN: Soft, no distention. EXTREMITITES: Tedls-[id number] amputations noted. Past Medical History Past Medical History: Heart Failure, Diabetes Mellitus, Diabetes Mellitus, Eye Disorder, GERD/Reflux, Hearing Disorder / Deafness, Hyperlipidemia, Hypertension, Myocardial Infarction ([place]), Osteoarthritis (OA), Renal Disease, Skin Disorder, Thyroid Disorder Additional Past Medical History / Comment(s): IDDM type II, neuropathy bilateral hands/forearms/lower legs/feet, WCC pt, bilateral leg edema, [place]. wounds right foot w/wound vac, ischemic cardiomyopathy/AICD, vtach, past medical record documents paroxysmal Afib/pt does not recall this, bilateral lower leg intermittent claudication/PAD, chronic renal disease stage III, anemia- transfusion in December per pt., bilateral tinnitis/[place], hypothyroidchronic renal disease stage III, anemia, bilateral tinnitis/[place], hypothyroid, arthritis bilateral hands with R hand worse, Last Myocardial Infarction Date:: 2006 History of Any Multi-Drug Resistant Organisms: None Reported Past Surgical History: AICD, Cholecystectomy, Coronary Bypass/CABG, Heart Catheterization, Heart Catheterization With Stent, Pacemaker Additional Past Surgical History / Comment(s): PCI with one stent 1998, 2006 CABG 3 vessel and AICD, DFTs, aortagram with runoff, colonoscopy, bilateral cataract removals/lens implants, multiple debridements of wounds, left bka, lap choley 07/23/22 Past Anesthesia/Blood Transfusion Reactions: No Reported Reaction Date of Last Stent Placement:: 1998 Type of Cardiac Device: Permanent Pacemaker, AICD Device Placement Date:: 2006 Past Psychological History: No Psychological Hx Reported Additional Psychological History / Comment(s): Pt resides with his spouse. using wheelchair and slideboard, pt. bilateral BKA. pt. has home care for wound care on his left stump Smoking Status: Former smoker Past Alcohol Use History: None Reported Additional Past Alcohol Use History / Comment(s): STARTED SMOKING AT AGE 17 QUIT 2006 SMOKED 1 1/2 PPD Past Drug Use History: None Reported - Past Family History Sister(s) Additional Family Medical History / Comment(s): Pt has a sister with COPD, ano ther sister with diabetes/copd/htn and another sister with diabetes. Father Family Medical History: Myocardial Infarction ([place]) Additional Family Medical History / Comment(s): Father of a [place] at the age of 75 yrs. Brother(s) Family Medical History: Coronary Artery Disease (CAD), CVA/TIA, Diabetes Mellitus, Myocardial Infarction ([place]) Additional Family Medical History / Comment(s): One brother had a [place] at 38yrs and at age 48yrs. Another brother is alive and had a stroke. Mother Family Medical History: Diabetes Mellitus, Renal Disease Additional Family Medical History / Comment(s): Mother at age 62 from renal failure Medications and Allergies Home Medications Medication Instructions Recorded Confirmed Type Fenofibrate 160 mg PO DAILY 03/31/14 08/06/22 History Insulin Lispro [humaLOG Kwikpen] See Protocol SQ AC-TID 03/31/14 08/06/22 History Atorvastatin [Lipitor] 40 mg PO DAILY 05/24/20 08/06/22 History Metoprolol Tartrate 25 mg PO TID 05/24/20 08/06/22 History Aspirin 81 mg PO DAILY 90 Days #90 chew 12/16/20 08/06/22 Rx Folic Acid 1 mg PO DAILY 90 Days #90 tab 12/27/20 08/06/22 Rx Ergocalciferol (Vitamin D2) 1,250 mcg PO MO 06/02/21 08/06/22 History [Drisdol (50,000 Iu)] Insulin Glargine,Hum.rec.anlog 30 units SQ HS 06/02/21 08/06/22 History [Toujeo Solostar] Levothyroxine Sodium [Synthroid] 50 mcg PO DAILY 06/02/21 08/06/22 History Levothyroxine Sodium [Synthroid] 200 mcg PO DAILY 06/02/21 08/06/22 History Insulin Lispro [humaLOG Kwikpen] 5 unit SQ AC-TID 07/25/21 08/06/22 History Finerenone [Kerendia] 10 mg PO HS 07/18/22 08/06/22 History Omeprazole 40 mg PO DAILY 07/18/22 08/06/22 History Tamsulosin [Flomax] 0.4 mg PO PC-SUPPER #30 cap 08/03/22 08/06/22 Rx Torsemide [Demadex] 40 mg PO DAILY #30 tab 08/03/22 08/06/22 Rx amLODIPine [Norvasc] 5 mg PO DAILY #30 tab 08/03/22 08/06/22 Rx Allergies Allergy/AdvReac Type Severity Reaction Status Date / Time No Known Allergies Allergy Verified 08/06/22 16:47 Physical Exam Vitals: Vital Signs Temp Pulse Pulse Resp BP BP Pulse Ox 08/07/22 09:07 85 17 118/58 96 08/07/22 04:05 97.5 F L 57 L 20 115/65 99 08/07/22 00:08 97.9 F 56 L 22 117/56 98 08/06/22 19:55 98.3 F 63 20 122/71 97 08/06/22 19:35 17 08/06/22 19:11 98.1 F 64 18 119/70 97 08/06/22 17:44 62 16 112/56 96 08/06/22 15:08 65 99 08/06/22 14:46 98.3 F 65 20 105/52 93 L Intake and Output 08/06/22 08/07/22 08/07/22 22:59 06:59 14:59 Intake Total 102.956 109.461 Output Total 500 Balance -397.044 109.461 Intake: Intake, IV Titration 102.956 109.461 Amount Heparin Sod,Pork in 0.45% 102.956 109.461 NaCl 25,000 unit In 0.45 % NaCl 1 250ml.bag @ 18 UNITS/KG/HR 15.921 mls/hr IV .[id number] VICK Rx#: [id number] Output: Urine 500 Other: Voiding Method Urinal # Voids 0 0 # Bowel Movements 0 Weight 88.451 kg 99 kg Results - Lab Results Most recent lab results Calcium 7.8 mg/dL (8.4-10.2) L 08/06/22 15:20 08/06/22 15:20 08/06/22 15:20 Assessment and Plan Plan: Assessment: 1. Acute kidney injury secondary to ATN secondary to cardiorenal syndrome. Renal function has been improving since last admission and creatinine peaked at 5.9 on 07/27/2022. 3.01 yesterday on admission. Rule out urinary retention. Creatinine was near 1 in March 2021. UA from June 2022 showed protein, glucose. 2. Acute hypoxic respiratory failure secondary to volume overload. 3. Diabetes mellitus. 4. Status post bilateral below-knee medications. 5. History of coronary disease status post cardiac stenting and CABG. 6. Anemia. Rule out iron deficiency. 7. Probable chronic kidney disease due to diabetic kidney disease. Need to establish baseline renal function. 8. Benign hypertension. Controlled. 9. Urinary retention on Flomax. Plan: Change Lasix to 40 mg IV BID. Monitor bladder scans closely to make sure no urinary retention. 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 I will reorder workup for myeloma. Check renal ultrasound. Check iron studies. Follow-up echocardiogram. Avoid nephrotoxins. Continue to monitor renal function and urine output. Hold amlodipine for systolic blood pressure less than 120. Thank you for the consultation. I will continue to follow the patient with you during his hospital stay.
--- NOTE | 2022-08-07 11:01 | US ---
EXAMINATION TYPE: US kidneys/renal and bladder DATE OF EXAM: 08/07/2022 COMPARISON: CT, US CLINICAL HISTORY: [email or web address]. [email or web address] EXAM MEASUREMENTS: Right Kidney: 11.8 x 5.9 x 5.9 cm Left Kidney: 11.6 x 5.2 x 6.7 cm Right Kidney: No hydronephrosis or masses seen Left Kidney: No hydronephrosis or masses seen Bladder: Appears anechoic. Bilateral Jets seen: Left jet seen IMPRESSION: No evidence of obstructive uropathy.
[2022-08-07] MEDS: INSULIN ASPART (NovoLOG) 100 UNIT/ML VIAL SQ SCH ×3 (11:09→17:12)
[2022-08-07 11:20] LABS: Basophils # (A) 0.1 k/uL (0-0.2); Basophils % (A) 1 %; Eosinophils # (A) 0.4 k/uL (0-0.7); Eosinophils % (A) 3 %; Hypochromasia Moderate; Lymphocytes # (A) 1.4 k/uL (1.0-4.8); Lymphocytes % (A) 12 %; MCH 27.2 pg (25.0-35.0); MCHC 30.7 g/dL (31.0-37.0); MCV 88.6 fL (80.0-100.0); Mean Platelet Volume 8.6; Monocytes # (A) 0.6 k/uL (0-1.0); Monocytes % (A) 5 %; Neutrophils # (A) 9.1 k/uL (1.3-7.7); Neutrophils % (A) 78 %; Platelet Count 448 k/uL (150-450); RBC 2.94 m/uL (4.30-5.90); RDW 14.9 % (11.5-15.5); WBC 11.7 k/uL (3.8-10.6)
[2022-08-07 11:21] VITALS: BMI 42.6
[2022-08-07 11:34] LABS: Calcium 7.9 mg/dL (8.4-10.2); Magnesium 1.7 mg/dL (1.6-2.3); Potassium 3.5 mmol/L (3.5-5.1)
[2022-08-07 11:40] LABS: Glucose,Whole Blood 94 mg/dL (70-110)
--- NOTE | 2022-08-07 11:51 | P.CRDCN ---
History of Present Illness History of present illness: HISTORY OF PRESENTING ILLNESS This is a pleasant 66-year-old male past medical history significant for coronary artery disease status post CABG 2006 (WILD to LAD, SVG to obtuse marginal, SVG to RCA), ischemic cardiomyopathy with recovered ejection fraction and status post AICD placement , peripheral artery disease with bilateral occluded anterior tibial arteries in 2017, bilateral vascular wounds, type 2 diabetes,chronic kidney disease, neuropathy of upper and lower extremities. He followed in the office with Dr. Henderson, last follow up in 04/2021. We have been asked to see in consultation for shortness of breath. Patient was recently hospitalized from 07/20/20 with acute kidney injury, acute cholecystitis status post cholecystectomy on 07/18, pneumonia. He states that he was feeling well few days after his discharge. However Saturday morning he had symptoms of shortness of breath, felt "clammy", he noticed he had decreased oxygen saturations with a pulse ox at home. He states that he was unable to take his Lasix at home secondary to not being given at discharge and did not have Torsemide at home. He also was taken off his metoprolol and his losartan as well last admission. He feels that he has more fluid with increased edema, shortness of breath and weight gain. He denies any chest pain, lightheadedness, dizziness, palpitations, nausea, vomiting, abdominal pain. He denies any fever cough or chills. He was started on IV Lasix emergency department, he feels an improvement in his symptoms. DIAGNOSTICS EKG revealed ventricular paced rhythm, heart rate [address] revealed bilateral pleural effusions and basilar pulmonary infiltrates and atelectasis increased from old exam. V/Q scan was low probability for pulmonary embolism Labs, WBC 11.7, hemoglobin 8.0, platelets 448, sodium 139, potassium 3.5, BUN 62, serum creatinine 2.3, magnesium 1.7, troponin 0.17, 0.19, 0.15, proBNP 8570, d-dimer 3.7 Echocardiogram in the office 07/2020 revealed an EF of 5055 percent, mild to moderate tricuspid regurgitation REVIEW OF SYSTEMS At the time of my exam: CONSTITUTIONAL:Denies fever and chills. +weight gain CARDIOVASCULAR: Denies chest pain, +shortness of breath,+LE edema Denies orthopnea, PND or palpitations. RESPIRATORY: Denies cough. GASTROINTESTINAL: Denies abdominal pain, diarrhea, constipation, nausea or vomiting. MUSCULOSKELETAL: Denies myalgias. NEUROLOGIC: Denies numbness, tingling, headacbe or weakness. ENDOCRINE: Denies fatigue, weight change, polydipsia or polyurina. GENITOURINARY: Denies burning, hematuria or urgency with micturation. HEMATOLOGIC: Denies history of anemia or bleeding. PHYSICAL EXAMINATION CONSTITUTIONAL: No apparent distress. HEENT: Head is normocephalic. Pupils are equal, round. Sclerae anicteric. Mucous membranes of the mouth are moist. No JVD. No carotid bruit. CHEST EXAMINATION: Lungs are crackles bases to auscultation. No chest wall tenderness is noted on palpation or with deep breathing. HEART EXAMINATION: Regular rate and rhythm. S1, S2 heard. Systolic murmur No gallops or rub. ABDOMEN: Soft, nontender. Positive bowel sounds. EXTREMITIES: +2 radial pulses bilaterally. +2 lower extremity edema and bilateral lower extremity pain with palpation. NEUROLOGIC EXAMINATION: Patient is awake, alert and oriented x3. ASSESSMENT -Acute on chronic heart failure with preserved ejection fraction, recent admission not taking Torsemide at home, recent discontinuing of beta ilsa and ARB medications -Elevated troponin, possibly related to type II [place] -Recent cholecystectomy on 07/18/2022 -Recent admission to the hospital with acute kidney injury and pneumonia -Coronary artery disease status post 3 vessel CABG in 2006 -Ischemic cardiomyopathy with recovered ejection fraction and status post AICD placement -Peripheral artery disease with bilateral occluded anterior tibial arteries in 2017 -Bilateral vascular wounds -Type 2 Diabetes -Chronic Kidney Disease PLAN Obtain 2D echocardiogram Continue IV Lasix Monitor I/Os, daily weights, renal function and electrolytes Continue IV heparin for additional 24 hours Continue aspirin, statin, amlodipine, beta ilsa at this time Maximize medical therapy as tolerated Further recommendations based on clinical course Nurse Practitioner note has been reviewed, I agree with a documented findings and plan of care. Patient was seen and examined. Past Medical History Past Medical History: Heart Failure, Diabetes Mellitus, Diabetes Mellitus, Eye Disorder, GERD/Reflux, Hearing Disorder / Deafness, Hyperlipidemia, Hypertension, Myocardial Infarction ([place]), Osteoarthritis (OA), Renal Disease, Skin Disorder, Thyroid Disorder Additional Past Medical History / Comment(s): IDDM type II, neuropathy bilateral hands/forearms/lower legs/feet, WCC pt, bilateral leg edema, [place]. wounds right foot w/wound vac, ischemic cardiomyopathy/AICD, vtach, past medical record documents paroxysmal Afib/pt does not recall this, bilateral lower leg intermittent claudication/PAD, chronic renal disease stage III, anemia- transfusion in December per pt., bilateral tinnitis/[place], hypothyroidchronic renal disease stage III, anemia, bilateral tinnitis/[place], hypothyroid, arthritis bi lateral hands with R hand worse, Last Myocardial Infarction Date:: 2006 History of Any Multi-Drug Resistant Organisms: None Reported Past Surgical History: AICD, Cholecystectomy, Coronary Bypass/CABG, Heart Catheterization, Heart Catheterization With Stent, Pacemaker Additional Past Surgical History / Comment(s): PCI with one stent 1998, 2006 CABG 3 vessel and AICD, DFTs, aortagram with runoff, colonoscopy, bilateral cataract removals/lens implants, multiple debridements of wounds, left bka, lap choley 07/23/22 Past Anesthesia/Blood Transfusion Reactions: No Reported Reaction Date of Last Stent Placement:: 1998 Type of Cardiac Device: Permanent Pacemaker, AICD Device Placement Date:: 2006 Past Psychological History: No Psychological Hx Reported Additional Psychological History / Comment(s): Pt resides with his spouse. using wheelchair and slideboard, pt. bilateral BKA. pt. has home care for wound care on his left stump Smoking Status: Former smoker Past Alcohol Use History: None Reported Additional Past Alcohol Use History / Comment(s): STARTED SMOKING AT AGE 17 QUIT 2006 SMOKED 1 1/2 PPD Past Drug Use History: None Reported - Past Family History Sister(s) Additional Family Medical History / Comment(s): Pt has a sister with COPD, another sister with diabetes/copd/htn and another sister with diabetes. Father Family Medical History: Myocardial Infarction ([place]) Additional Family Medical History / Comment(s): Father of a [place] at the age of 75 yrs. Brother(s) Family Medical History: Coronary Artery Disease (CAD), CVA/TIA, Diabetes Mellitus, Myocardial Infarction ([place]) Additional Family Medical History / Comment(s): One brother had a [place] at 38yrs and at age 48yrs. Another brother is alive and had a stroke. Mother Family Medical History: Diabetes Mellitus, Renal Disease Additional Family Medical History / Comment(s): Mother at age 62 from renal failure Medications and Allergies Home Medications Medication Instructions Recorded Confirmed Type Fenofibrate 160 mg PO DAILY 03/31/14 08/06/22 History Insulin Lispro [humaLOG Kwikpen] See Protocol SQ AC-TID 03/31/14 08/06/22 History Atorvastatin [Lipitor] 40 mg PO DAILY 05/24/20 08/06/22 History Metoprolol Tartrate 25 mg PO TID 05/24/20 08/06/22 History Aspirin 81 mg PO DAILY 90 Days #90 chew 12/16/20 08/06/22 Rx Folic Acid 1 mg PO DAILY 90 Days #90 tab 12/27/20 08/06/22 Rx Ergocalciferol (Vitamin D2) 1,250 mcg PO MO 06/02/21 08/06/22 History [Drisdol (50,000 Iu)] Insulin Glargine,Hum.rec.anlog 30 units SQ HS 06/02/21 08/06/22 History [Toujeo Solostar] Levothyroxine Sodium [Synthroid] 50 mcg PO DAILY 06/02/21 08/06/22 History Levothyroxine Sodium [Synthroid] 200 mcg PO DAILY 06/02/21 08/06/22 History Insulin Lispro [humaLOG Kwikpen] 5 unit SQ AC-TID 07/25/21 08/06/22 History Finerenone [Kerendia] 10 mg PO HS 07/18/22 08/06/22 History Omeprazole 40 mg PO DAILY 07/18/22 08/06/22 History Tamsulosin [Flomax] 0.4 mg PO PC-SUPPER #30 cap 08/03/22 08/06/22 Rx Torsemide [Demadex] 40 mg PO DAILY #30 tab 08/03/22 08/06/22 Rx amLODIPine [Norvasc] 5 mg PO DAILY #30 tab 08/03/22 08/06/22 Rx Allergies Allergy/AdvReac Type Severity Reaction Status Date / Time No Known Allergies Allergy Verified 08/06/22 16:47 Physical Exam Vitals: Vital Signs Temp Pulse Pulse Resp BP BP Pulse Ox 08/07/22 04:05 97.5 F L 57 L 20 115/65 99 08/07/22 00:08 97.9 F 56 L 22 117/56 98 08/06/22 19:55 98.3 F 63 20 122/71 97 08/06/22 19:35 17 08/06/22 19:11 98.1 F 64 18 119/70 97 08/06/22 17:44 62 16 112/56 96 08/06/22 15:08 65 99 08/06/22 14:46 98.3 F 65 20 105/52 93 L Intake and Output 08/06/22 08/07/22 08/07/22 22:59 06:59 14:59 Intake Total 102.956 Output Total 500 Balance -397.044 Intake: Intake, IV Titration 102.956 Amount Heparin Sod,Pork in 0.45% 102.956 NaCl 25,000 unit In 0.45 % NaCl 1 250ml.bag @ 18 UNITS/KG/HR 15.921 mls/hr IV .[id number] [facility] Rx#: [id number] Output: Urine 500 Other: Voiding Method Urinal # Voids 0 # Bowel Movements 0 Weight 88.451 kg 99 kg Results 08/07/22 10:40 08/07/22 10:40 Cardiac Enzymes 08/06/22 08/06/22 08/06/22 Range/Units 15:20 15:20 17:21 AST 26 (17-59) U/L Troponin I 0.177 H* 0.191 H* (0.000-0.034) ng/mL 08/06/22 Range/Units 20:42 AST (17-59) U/L Troponin I 0.157 H* (0.000-0.034) ng/mL Coagulation 08/06/22 08/06/22 Range/Units 15:20 22:48 PT 12.3 H (9.0-12.0) sec APTT 24.1 96.5 H (22.0-30.0) sec CBC 08/06/22 Range/Units 15:20 WBC 11.2 H (3.8-10.6) k/uL RBC 2.52 L (4.30-5.90) m/uL Hgb 7.4 L (13.0-17.5) gm/dL Hct 21.8 L (39.0-53.0) % Plt Count 380 (150-450) k/uL Comprehensive Metabolic Panel 08/06/22 Range/Units 15:20 Sodium 135 L (137-145) mmol/L Potassium 3.6 (3.5-5.1) mmol/L Chloride 95 L (98-107) mmol/L Carbon Dioxide 35 H (22-30) mmol/L BUN 62 H (9-20) mg/dL Creatinine 3.01 H (0.66-1.25) mg/dL Glucose 161 H (74-99) mg/dL Calcium 7.8 L (8.4-10.2) mg/dL AST 26 (17-59) U/L ALT 12 (4-49) U/L Alkaline Phosphatase 87 (38-126) U/L Total Protein 5.8 L (6.3-8.2) g/dL Albumin 2.6 L (3.5-5.0) g/dL Current Medications Generic Name Dose Route Start Last Admin Trade Name Freq PRN Reason Stop Dose Admin Amlodipine Besylate 5 mg 08/07/22 09:00 Amlodipine 5 Mg Tab PO DAILY [facility] Aspirin 81 mg 08/07/22 09:00 Aspirin 81 Mg PO DAILY [facility] Atorvastatin Calcium 40 mg 08/07/22 09:00 Atorvastatin 40 Mg Tab PO DAILY [facility] Ergocalciferol 1,250 mcg 08/13/22 09:00 Ergocalciferol 1,250 Mcg (50,000 Iu) Capsule PO MO [facility] Fenofibrate 160 mg 08/07/22 09:00 Fenofibrate 160 Mg Tab PO DAILY [facility] Folic Acid 1 mg 08/07/22 09:00 Folic Acid 1 Mg Tab PO DAILY [facility] Furosemide 20 mg 08/06/22 21:00 08/06/22 21:40 Furosemide 10 Mg/Ml 2 Ml Vial IV 20 mg Q12HR [facility] Administration Heparin Sodium (Porcine) 0 unit 08/06/22 16:53 Heparin Sodium 1,000 Un/Ml (10ml Vl) IV PER PROTOCOL PRN Low PTT Protocol Sodium Chloride 1,000 mls @ 20 mls/hr 08/06/22 17:00 08/06/22 17:37 Saline 0.9% IV 20 mls/hr .Q24H [facility] Administration Heparin Sodium/Sodium Chloride 250 mls @ 15.921 mls/hr 08/06/22 17:00 08/07/22 01:08 25,000 unit/ Sodium Chloride IV 15 units/kg/hr .[id number] [facility] 13.268 mls/hr Titration Protocol 18 UNITS/KG/HR Insulin Aspart 5 unit 08/06/22 17:30 08/06/22 19:29 Insulin Aspart (Novolog) 100 Unit/Ml Vial SQ Not Given AC-TID [facility] Insulin Detemir 30 unit 08/06/22 21:00 08/06/22 21:40 Insulin Detemir (Levemir) 100 Unit/Ml Syr SQ 30 unit HS [facility] Administration Levothyroxine Sodium 250 mcg 08/07/22 06:30 08/07/22 06:32 Levothyroxine 125 Mcg Tab PO 250 mcg DAILY@0630 [facility] Administration Metoprolol Tartrate 25 mg 08/06/22 22:00 08/06/22 21:40 Metoprolol Tartrate 25 Mg Tab PO 25 mg TID [facility] Administration Nitroglycerin 1 inch 08/06/22 18:00 08/06/22 21:47 Nitroglycerin Oint 1 Inch/Gm Packet TOPICAL Not Given QID [facility] Pantoprazole Sodium 40 mg 08/07/22 07:30 08/07/22 06:32 Pantoprazole 40 Mg Tablet PO 40 mg AC-[id number] [facility] Administration Tamsulosin HCl 0.4 mg 08/06/22 18:30 08/06/22 21:40 Tamsulosin 0.4 Mg Cap.Er.24h PO 0.4 mg PC-SUPPER [facility] Administration Intake and Output 08/06/22 08/07/22 08/07/22 22:59 06:59 14:59 Intake Total 102.956 Output Total 500 Balance -397.044 Intake: Intake, IV Titration 102.956 Amount Heparin Sod,Pork in 0.45% 102.956 NaCl 25,000 unit In 0.45 % NaCl 1 250ml.bag @ 18 UNITS/KG/HR 15.921 mls/hr IV .[id number] [facility] Rx#: [id number] Output: Urine 500 Other: Voiding Method Urinal # Voids 0 # Bowel Movements 0 Weight 88.451 kg 99 kg 08/06/22 15:20 08/06/22 15:20
--- NOTE | 2022-08-07 14:38 | P.CNPUL ---
History of Present Illness Consult date: 08/07/22 Reason for consult: dyspnea, cough, pneumonia Chief complaint: Dizziness lightheadedness History of present illness: Patient is a 66-year-old male well-known to me he is status post bilateral BKA, patient had left lower lobe pneumonia and acute cholecystitis with chronic kidney disease with acute onset was hospitalized later that those problems and discharge last week came back with problems of dizziness lightheadedness. He has significant cardiovascular disease status post a CABG 2006 history of cardiomyopathy ischemic in nature ejection fraction less than 30% status post AICD, peripheral arterial disease chronic kidney disease recent pneumonia status post cholecystectomy, patient was feeling cold and clammy has been short of breath oxygen saturation dropped down while decided to bring him into the hospital. Significant workup included a computed tomography scan of his chest is reviewed by basilar atelectasis along with effusion, EKG particular paced rhythm, VQ low probability for PE, white cell count is 11.7 creatinine is 2.3 BUN 62 BNP is 8570 d-dimer 3.7, patient has been admitted into the hospital with acute on chronic heart failure and type II [place] cardiovascular services following has been on dialysis and IV heparin along with continuation of antihypertensive aspirin and statins, Review of Systems All systems: negative Past Medical History Past Medical History: Heart Failure, Diabetes Mellitus, Diabetes Mellitus, Eye Disorder, GERD/Reflux, Hearing Disorder / Deafness, Hyperlipidemia, Hypertension, Myocardial Infarction ([place]), Osteoarthritis (OA), Renal Disease, Skin Disorder, Thyroid Disorder Additional Past Medical History / Comment(s): IDDM type II, neuropathy bilateral hands/forearms/lower legs/feet, WCC pt, bilateral leg edema, [place]. wounds right foot w/wound vac, ischemic cardiomyopathy/AICD, vtach, past medical record documents paroxysmal Afib/pt does not recall this, bilateral lower leg intermittent claudication/PAD, chronic renal disease stage III, anemia-transfusion in December per pt., bilateral tinnitis/[place], hypothyroidchronic renal disease stage III, anemia, bilateral tinnitis/[place], hypothyroid, arthritis bilateral hands with R hand worse, Last Myocardial Infarction Date:: 2006 History of Any Multi-Drug Resistant Organisms: None Reported Past Surgical History: AICD, Cholecystectomy, Coronary Bypass/CABG, Heart Catheterization, Heart Catheterization With Stent, Pacemaker Additional Past Surgical History / Comment(s): PCI with one stent 2006 CABG 3 vessel and AICD, DFTs, aortagram with runoff, colonoscopy, bilateral cataract removals/lens implants, multiple debridements of wounds, left bka, lap choley 07/23/22 Past Anesthesia/Blood Transfusion Reactions: No Reported Reaction Date of Last Stent Placement:: 1998 Type of Cardiac Device: Permanent Pacemaker, AICD Device Placement Date:: 2006 Past Psychological History: No Psychological Hx Reported Additional Psychological History / Comment(s): Pt resides with his spouse. using wheelchair and slideboard, pt. bilateral BKA. pt. has home care for wound care on his left stump Smoking Status: Former smoker Past Alcohol Use History: None Reported Additional Past Alcohol Use History / Comment(s): STARTED SMOKING AT AGE 17 QUIT 2006 SMOKED 1 1/2 PPD Past Drug Use History: None Reported - Past Family History Sister(s) Additional Family Medical History / Comment(s): Pt has a sister with COPD, another sister with diabetes/copd/htn and another sister with diabetes. Father Family Medical History: Myocardial Infarction ([place]) Additional Family Medical History / Comment(s): Father of a [place] at the age of 75 yrs. Brother(s) Family Medical History: Coronary Artery Disease (CAD), CVA/TIA, Diabetes Mellitus, Myocardial Infarction ([place]) Additional Family Medical History / Comment(s): One brother had a [place] at 38yrs and at age 48yrs. Another brother is alive and had a stroke. Mother Family Medical History: Diabetes Mellitus, Renal Disease Additional Family Medical History / Comment(s): Mother at age 62 from renal failure Medications and Allergies Home Medications Medication Instructions Recorded Confirmed Type Fenofibrate 160 mg PO DAILY 03/31/14 08/06/22 History Insulin Lispro [humaLOG Kwikpen] See Protocol SQ AC-TID 03/31/14 08/06/22 History Atorvastatin [Lipitor] 40 mg PO DAILY 05/24/20 08/06/22 History Metoprolol Tartrate 25 mg PO TID 05/24/20 08/06/22 History Aspirin 81 mg PO DAILY 90 Days #90 chew 12/16/20 08/06/22 Rx Folic Acid 1 mg PO DAILY 90 Days #90 tab 12/27/20 08/06/22 Rx Ergocalciferol (Vitamin D2) 1,250 mcg PO MO 06/02/21 08/06/22 History [Drisdol (50,000 Iu)] Insulin Glargine,Hum.rec.anlog 30 units SQ HS 06/02/21 08/06/22 History [Touadamo Solostar] Levothyroxine Sodium [Synthroid] 50 mcg PO DAILY 06/02/21 08/06/22 History Levothyroxine Sodium [Synthroid] 200 mcg PO DAILY 06/02/21 08/06/22 History Insulin Lispro [humaLOG Kwikpen] 5 unit SQ AC-TID 07/25/21 08/06/22 History Finerenone [Kerendia] 10 mg PO HS 07/18/22 08/06/22 History Omeprazole 40 mg PO DAILY 07/18/22 08/06/22 History Tamsulosin [Flomax] 0.4 mg PO PC-SUPPER #30 cap 08/03/22 08/06/22 Rx Torsemide [Demadex] 40 mg PO DAILY #30 tab 08/03/22 08/06/22 Rx amLODIPine [Norvasc] 5 mg PO DAILY #30 tab 08/03/22 08/06/22 Rx Allergies Allergy/AdvReac Type Severity Reaction Status Date / Time No Known Allergies Allergy Verified 08/06/22 16:47 Physical Exam Vitals: Vital Signs Temp Pulse Pulse Resp BP BP Pulse Ox 08/07/22 13:00 63 18 142/76 94 L 08/07/22 09:07 85 17 118/58 96 08/07/22 04:05 97.5 F L 57 L 20 115/65 99 08/07/22 00:08 97.9 F 56 L 22 117/56 98 08/06/22 19:55 98.3 F 63 20 122/71 97 08/06/22 19:35 17 08/06/22 19:11 98.1 F 64 18 119/70 97 08/06/22 17:44 62 16 112/56 96 08/06/22 15:08 65 99 08/06/22 14:46 98.3 F 65 20 105/52 93 L Intake and Output 08/06/22 08/07/22 08/07/22 22:59 06:59 14:59 Intake Total 102.956 109.461 Output Total 500 300 Balance -397.044 -190.539 Intake: Intake, IV Titration 102.956 109.461 Amount Heparin Sod,Pork in 0.45% 102.956 109.461 NaCl 25,000 unit In 0.45 % NaCl 1 250ml.bag @ 18 UNITS/KG/HR 15.921 mls/hr IV .[id number] [facility] Rx#: [id number] Output: Urine 500 300 Other: Voiding Method Urinal # Voids 0 0 # Bowel Movements 0 Weight 88.451 kg 99 kg 99 kg - Constitutional General appearance: average body habitus, cooperative, disheveled - EENT Eyes: EOMI, PERRLA ENT: normal oropharynx Ears: bilateral: normal - Neck Neck: lymphadenopathy Carotids: bilateral: upstroke normal Thyroid: bilateral: normal size - Respiratory Respiratory: bilateral: diminished - Cardiovascular Rhythm: regular Heart sounds: normal: S1, S2 - Gastrointestinal General gastrointestinal: normal bowel sounds, soft - Neurologic Neurologic: CNII-XII intact - Musculoskeletal Musculoskeletal: generalized weakness - Psychiatric Psychiatric: A&O x's 3, appropriate affect, intact judgment & insight Results - Laboratory Findings CBC and BMP: 08/07/22 10:40 08/07/22 10:40 PT/INR, D-dimer PT 12.3 sec (9.0-12.0) H 08/06/22 15:20 INR 1.2 (<1.2) H 08/06/22 15:20 D-Dimer 3.70 mg/L FEU (<0.60) H 08/06/22 15:20 Abnormal lab findings: Abnormal Labs 08/06/22 08/06/22 08/06/22 15:20 15:20 15:20 WBC 11.2 H RBC 2.52 L Hgb 7.4 L Hct 21.8 L MCHC Neutrophils # 8.4 H PT 12.3 H INR 1.2 H APTT D-Dimer 3.70 H Sodium 135 L Chloride 95 L Carbon Dioxide 35 H BUN 62 H Creatinine 3.01 H Glucose 161 H POC Glucose (mg/dL) Calcium 7.8 L Troponin I Total Protein 5.8 L Albumin 2.6 L Procalcitonin 08/06/22 08/06/22 08/06/22 15:20 15:20 17:21 WBC RBC Hgb Hct MCHC Neutrophils # PT INR APTT D-Dimer Sodium Chloride Carbon Dioxide BUN Creatinine Glucose POC Glucose (mg/dL) Calcium Troponin I 0.177 H* 0.191 H* Total Protein Albumin Procalcitonin 0.34 H 08/06/22 08/06/22 08/06/22 18:18 20:26 20:42 WBC RBC Hgb Hct MCHC Neutrophils # PT INR APTT D-Dimer Sodium Chloride Carbon Dioxide BUN Creatinine Glucose POC Glucose (mg/dL) 279 H 201 H Calcium Troponin I 0.157 H* Total Protein Albumin Procalcitonin 08/06/22 08/07/22 08/07/22 22:48 10:40 10:40 WBC 11.7 H RBC 2.94 L Hgb 8.0 L Hct 26.0 L MCHC 30.7 L Neutrophils # 9.1 H PT INR APTT 96.5 H D-Dimer Sodium Chloride 97 L Carbon Dioxide 37 H BUN 62 H Creatinine 3.35 H Glucose 55 L POC Glucose (mg/dL) Calcium 7.9 L Troponin I Total Protein Albumin Procalcitonin 08/07/22 10:40 WBC RBC Hgb Hct MCHC Neutrophils # PT INR APTT 65.5 H D-Dimer Sodium Chloride Carbon Dioxide BUN Creatinine Glucose POC Glucose (mg/dL) Calcium Troponin I Total Protein Albumin Procalcitonin - Diagnostic Findings Chest x-ray: image reviewed Assessment and Plan Assessment: Bilateral basilar atelectasis due to poor respiratory effort Bilateral small pleural effusion due to congestive heart failure suspect acute on chronic systolic heart failure Ischemic cardiomyopathy Recent left lower lobe pneumonia status post antibiotic therapy Acute cholecystitis status post recent cholecystectomy Plan: Agree with cardiovascular workup as outlined above Continue gentle diuresis monitor and trend renal functions Deep breathing exercises incentive spirometry Monitor observe off of antibiotics therapy Time with Patient: Greater than 30
[2022-08-07 15:25] LABS: Protein, Total 6.1 g/dL (6.2-8.2)
[2022-08-07 15:53] LABS: % Iron Saturation 13.91 (15.00-50.00)
[2022-08-07 16:28] LABS: Glucose,Whole Blood 150 mg/dL (70-110)
[2022-08-07] MEDS: VANCOMYCIN 125 MG CAPSULE PO SCH ×2 (17:13→21:19)
[2022-08-07] MEDS: TAMSULOSIN 0.4 MG CAP.ER.24H PO SCH (17:13)
[2022-08-07] MEDS: SODIUM CHLORIDE 0.9% 1,000 ML IV SCH (17:13)
[2022-08-07 20:04] LABS: Glucose,Whole Blood 166 mg/dL (70-110)
[2022-08-07] MEDS: FUROSEMIDE 10 MG/ML 4 ML VIAL IV SCH (21:19)
[2022-08-07] MEDS: INSULIN DETEMIR (LEVEMIR) 100 UNIT/ML SYR SQ SCH (21:19)
--- NOTE | 2022-08-07 22:35 | P.CONS ---
History of Present Illness - Reason for Consult Consult date: 08/07/22 - History of Present Illness Patient is a 66-year-old male with multiple comorbidities recently admitted to this hospital and the patient has been treated with Zosyn for possible pneumonia patient mention he did develop diarrhea while he was in the hospital and the patient was discharged home on 08/03/2022 patient now presenting back to the hospital on 08/06/2022 for symptoms of feeling cold and calmy very weak and also complaining of worsening diarrhea patient mention he did have multiple episodes of loose stools denies any blood or mucus in the stool he did have some crampy abdominal pain 4-500 no radiation some nausea but no vomiting patient denies having any chest pain some shortness of breath no significant cough or sputum production or URI symptoms with the symptom the patient was evaluated on arrival to the ER the patient was afebrile and no fever have been recorded subsequently patient did have white count of 11.2 with a left shift patient did have elevated BUN and creatinine levels observed normal patient did have a negative COVID influenza testing stool for C. difficile came back positive patient did have a chest x-ray possible infiltrate and effusion also have a CT of the chest bilateral effusion and basilar pulmonary feet atelectasis increased compared to old exam infectious disease was consulted for further management Past Medical History Past Medical History: Heart Failure, Diabetes Mellitus, Diabetes Mellitus, Eye Disorder, GERD/Reflux, Hearing Disorder / Deafness, Hyperlipidemia, Hypertension, Myocardial Infarction (NM), Osteoarthritis (OA), Renal Disease, Skin Disorder, Thyroid Disorder Additional Past Medical History / Comment(s): IDDM type II, neuropathy bilateral hands/forearms/lower legs/feet, WCC pt, bilateral leg edema, [place]. wounds right foot w/wound vac, ischemic cardiomyopathy/AICD, vtach, past medical record documents paroxysmal Afib/pt does not recall this, bilateral lower leg intermittent claudication/PAD, chronic renal disease stage III, anemia- transfusion in December per pt., bilateral tinnitis/[facility] [place], hypothyroidchronic renal disease stage III, anemia, bilateral tinnitis/[facility] [place], hypothyroid, arthritis bilateral hands with R hand worse, Last Myocardial Infarction Date:: 2006 History of Any Multi-Drug Resistant Organisms: None Reported Past Surgical History: AICD, Cholecystectomy, Coronary Bypass/CABG, Heart Cath eterization, Heart Catheterization With Stent, Pacemaker Additional Past Surgical History / Comment(s): PCI with one stent 2006 CABG 3 vessel and AICD, DFTs, aortagram with runoff, colonoscopy, bilateral cataract removals/lens implants, multiple debridements of wounds, left bka, lap choley 07/23/22 Past Anesthesia/Blood Transfusion Reactions: No Reported Reaction Date of Last Stent Placement:: 1998 Type of Cardiac Device: Permanent Pacemaker, AICD Device Placement Date:: 2006 Past Psychological History: No Psychological Hx Reported Additional Psychological History / Comment(s): Pt resides with his spouse. using wheelchair and slideboard, pt. bilateral BKA. pt. has home care for wound care on his left stump Smoking Status: Former smoker Past Alcohol Use History: None Reported Additional Past Alcohol Use History / Comment(s): STARTED SMOKING AT AGE 17 QUIT 2006 SMOKED 1 1/2 PPD Past Drug Use History: None Reported - Past Family History Sister(s) Additional Family Medical History / Comment(s): Pt has a sister with COPD, another sister with diabetes/copd/htn and another sister with diabetes. Father Family Medical History: Myocardial Infarction (NM) Additional Family Medical History / Comment(s): Father of a NM at the age of 75 yrs. Brother(s) Family Medical History: Coronary Artery Disease (CAD), CVA/TIA, Diabetes Mellitus, Myocardial Infarction (NM) Additional Family Medical History / Comment(s): One brother had a NM at 38yrs and at age 48yrs. Another brother is alive and had a stroke. Mother Family Medical History: Diabetes Mellitus, Renal Disease Additional Family Medical History / Comment(s): Mother at age 62 from renal failure Medications and Allergies Home Medications Medication Instructions Recorded Confirmed Type Fenofibrate 160 mg PO DAILY 03/31/14 08/06/22 History Insulin Lispro [humaLOG Kwikpen] See Protocol SQ AC-TID 03/31/14 08/06/22 History Atorvastatin [Lipitor] 40 mg PO DAILY 05/24/20 08/06/22 History Metoprolol Tartrate 25 mg PO TID 05/24/20 08/06/22 History Aspirin 81 mg PO DAILY 90 Days #90 chew 12/16/20 08/06/22 Rx Folic Acid 1 mg PO DAILY 90 Days #90 tab 12/27/20 08/06/22 Rx Ergocalciferol (Vitamin D2) 1,250 mcg PO MO 06/02/21 08/06/22 History [Drisdol (50,000 Iu)] Insulin Glargine,Hum.rec.anlog 30 units SQ HS 06/02/21 08/06/22 History [Touisa Solostar] Levothyroxine Sodium [Synthroid] 50 mcg PO DAILY 06/02/21 08/06/22 History Levothyroxine Sodium [Synthroid] 200 mcg PO DAILY 06/02/21 08/06/22 History Insulin Lispro [humaLOG Kwikpen] 5 unit SQ AC-TID 07/25/21 08/06/22 History Finerenone [Kerendia] 10 mg PO HS 07/18/22 08/06/22 History Omeprazole 40 mg PO DAILY 07/18/22 08/06/22 History Tamsulosin [Flomax] 0.4 mg PO PC-SUPPER #30 cap 08/03/22 08/06/22 Rx Torsemide [Demadex] 40 mg PO DAILY #30 tab 08/03/22 08/06/22 Rx amLODIPine [Norvasc] 5 mg PO DAILY #30 tab 08/03/22 08/06/22 Rx Allergies Allergy/AdvReac Type Severity Reaction Status Date / Time No Known Allergies Allergy Verified 08/06/22 16:47 Physical Exam Vitals: Vital Signs Temp Pulse Pulse Resp BP BP Pulse Ox 08/07/22 16:38 66 125/61 97 08/07/22 13:00 63 18 142/76 94 L 08/07/22 09:07 85 17 118/58 96 08/07/22 04:05 97.5 F L 57 L 20 115/65 99 08/07/22 00:08 97.9 F 56 L 22 117/56 98 08/06/22 19:55 98.3 F 63 20 122/71 97 08/06/22 19:35 17 08/06/22 19:11 98.1 F 64 18 119/70 97 08/06/22 17:44 62 16 112/56 96 Intake and Output 08/07/22 08/07/22 08/07/22 06:59 14:59 22:59 Intake Total 102.956 109.461 Output Total 500 300 Balance -397.044 -190.539 Intake: Intake, IV Titration 102.956 109.461 Amount Heparin Sod,Pork in 0.45% 102.956 109.461 NaCl 25,000 unit In 0.45 % NaCl 1 250ml.bag @ 18 UNITS/KG/HR 15.921 mls/hr IV .[id number] [facility] Rx#: [id number] Output: Urine 500 300 Other: # Voids 0 0 # Bowel Movements 0 2 Weight 99 kg 99 kg Results CBC & Chem 7: 08/07/22 10:40 08/07/22 10:40 Labs: Abnormal Lab Results - Last 24 Hours (Table) 08/06/22 08/06/22 08/06/22 Range/Units 15:20 17:21 18:18 WBC (3.8-10.6) k/uL RBC (4.30-5.90) m/uL Hgb (13.0-17.5) gm/dL Hct (39.0-53.0) % MCHC (31.0-37.0) g/dL Neutrophils # (1.3-7.7) k/uL APTT (22.0-30.0) sec Chloride (98-107) mmol/L Carbon Dioxide (22-30) mmol/L BUN (9-20) mg/dL Creatinine (0.66-1.25) mg/dL Glucose (74-99) mg/dL POC Glucose (mg/dL) 279 H (70-110) mg/dL Calcium (8.4-10.2) mg/dL Iron (65-175) ug/dL % Saturation (15.00-50.00) Transferrin (204.0-354.0) mg/dL Ferritin (22.0-322.0) ng/mL Troponin I 0.191 H* (0.000-0.034) ng/mL Total Protein (PEP) (6.2-8.2) g/dL Procalcitonin 0.34 H (0.02-0.09) ng/mL C. difficile (EIA) Intrp (Negative) 08/06/22 08/06/22 08/06/22 Range/Units 20:26 20:42 22:48 WBC (3.8-10.6) k/uL RBC (4.30-5.90) m/uL Hgb (13.0-17.5) gm/dL Hct (39.0-53.0) % MCHC (31.0-37.0) g/dL Neutrophils # (1.3-7.7) k/uL APTT 96.5 H (22.0-30.0) sec Chloride (98-107) mmol/L Carbon Dioxide (22-30) mmol/L BUN (9-20) mg/dL Creatinine (0.66-1.25) mg/dL Glucose (74-99) mg/dL POC Glucose (mg/dL) 201 H (70-110) mg/dL Calcium (8.4-10.2) mg/dL Iron (65-175) ug/dL % Saturation (15.00-50.00) Transferrin (204.0-354.0) mg/dL Ferritin (22.0-322.0) ng/mL Troponin I 0.157 H* (0.000-0.034) ng/mL Total Protein (PEP) (6.2-8.2) g/dL Procalcitonin (0.02-0.09) ng/mL C. difficile (EIA) Intrp (Negative) 08/07/22 08/07/22 08/07/22 Range/Units 10:40 10:40 10:40 WBC 11.7 H (3.8-10.6) k/uL RBC 2.94 L (4.30-5.90) m/uL Hgb 8.0 L (13.0-17.5) gm/dL Hct 26.0 L (39.0-53.0) % MCHC 30.7 L (31.0-37.0) g/dL Neutrophils # 9.1 H (1.3-7.7) k/uL APTT 65.5 H (22.0-30.0) sec Chloride 97 L (98-107) mmol/L Carbon Dioxide 37 H (22-30) mmol/L BUN 62 H (9-20) mg/dL Creatinine 3.35 H (0.66-1.25) mg/dL Glucose 55 L (74-99) mg/dL POC Glucose (mg/dL) (70-110) mg/dL Calcium 7.9 L (8.4-10.2) mg/dL Iron (65-175) ug/dL % Saturation (15.00-50.00) Transferrin (204.0-354.0) mg/dL Ferritin (22.0-322.0) ng/mL Troponin I (0.000-0.034) ng/mL Total Protein (PEP) (6.2-8.2) g/dL Procalcitonin (0.02-0.09) ng/mL C. difficile (EIA) Intrp (Negative) 08/07/22 08/07/22 08/07/22 Range/Units 10:40 10:40 14:20 WBC (3.8-10.6) k/uL RBC (4.30-5.90) m/uL Hgb (13.0-17.5) gm/dL Hct (39.0-53.0) % MCHC (31.0-37.0) g/dL Neutrophils # (1.3-7.7) k/uL APTT (22.0-30.0) sec Chloride (98-107) mmol/L Carbon Dioxide (22-30) mmol/L BUN (9-20) mg/dL Creatinine (0.66-1.25) mg/dL Glucose (74-99) mg/dL POC Glucose (mg/dL) (70-110) mg/dL Calcium (8.4-10.2) mg/dL Iron 37 L (65-175) ug/dL % Saturation 13.91 L (15.00-50.00) Transferrin 189.0 L (204.0-354.0) mg/dL Ferritin 1287.0 H (22.0-322.0) ng/mL Troponin I (0.000-0.034) ng/mL Total Protein (PEP) 6.1 L (6.2-8.2) g/dL Procalcitonin (0.02-0.09) ng/mL C. difficile (EIA) Intrp Positive A (Negative) 08/07/22 Range/Units 16:26 WBC (3.8-10.6) k/uL RBC (4.30-5.90) m/uL Hgb (13.0-17.5) gm/dL Hct (39.0-53.0) % MCHC (31.0-37.0) g/dL Neutrophils # (1.3-7.7) k/uL APTT (22.0-30.0) sec Chloride (98-107) mmol/L Carbon Dioxide (22-30) mmol/L BUN (9-20) mg/dL Creatinine (0.66-1.25) mg/dL Glucose (74-99) mg/dL POC Glucose (mg/dL) 150 H (70-110) mg/dL Calcium (8.4-10.2) mg/dL Iron (65-175) ug/dL % Saturation (15.00-50.00) Transferrin (204.0-354.0) mg/dL Ferritin (22.0-322.0) ng/mL Troponin I (0.000-0.034) ng/mL Total Protein (PEP) (6.2-8.2) g/dL Procalcitonin (0.02-0.09) ng/mL C. difficile (EIA) Intrp (Negative) Assessment and Plan Plan: 1patient present to hospital with weakness this patient who did have a significant diarrhea with recent exposure to 2 antibiotics in the form of Zosyn for possible pneumonia likely representing symptomatic C. difficile colitis. 2we will advise vancomycin 125 mg p.o. every 6 hours and avoid antimotility agents. 3clinically doubt pneumonia hence no need for any further antibiotic therapy at this point. We will follow on clinical condition and cultures to further adjust medication if needed Thank you for this consultation will follow this patient along with you Time with Patient: Greater than 30
[2022-08-08] MEDS: HEPARIN SOD,PORK IN 0.45% NACL 25,000 UNIT in 0.45% NACL 1 250ML.BAG IV SCH ×3 (03:20→23:34)
[2022-08-08 06:13] LABS: Glucose,Whole Blood 55 mg/dL (70-110)
[2022-08-08 06:27] LABS: Glucose,Whole Blood 74 mg/dL (70-110)
[2022-08-08] MEDS: PANTOPRAZOLE 40 MG TABLET PO SCH (06:43)
[2022-08-08] MEDS: LEVOTHYROXINE 125 MCG TAB PO SCH (06:43)
--- NOTE | 2022-08-08 07:04 | HP ---
HISTORY AND PHYSICAL HISTORY OF PRESENT ILLNESS: He is in the emergency room, came in with shortness of breath. He was sent home without oxygen, which he qualified for last admission ever since then. He had shortness of breath, worsening CHF, swelling, at which time he came right back to the hospital for admission. HOME MEDICATIONS: List reviewed. ALLERGIES: Negative. REVIEW OF SYSTEMS: A 14-point review of systems otherwise negative except for fatigue, shortness of breath, dizziness, and lightheadedness. PAST SURGICAL HISTORY: AICD, CABG, bilateral below-knee amputations, stent, pacemaker. FAMILY HISTORY: See old chart, it was reviewed. PHYSICAL EXAMINATION: VITAL SIGNS: Temp 98.3, pulse 65 respiratory rate 18 to 20, blood pressure 105/60, O2 of 93% on room air. EKG shows paced rhythm. BNP was over 8800, hemoglobin 7.4, BUN 62, creatinine 3.01. He had worsening renal failure on the last admission. We gave him IV Lasix, which improved it. He was sent home without Lasix on last admission. He has elevated troponins 0.177. Negative Flu. Elevated D-dimer, do a V/Q scan. Start him on some heparin until PE is ruled out. Rule out pleural effusion, which he had on last admission. Treat for CHF with Lasix. Renal failure, worsening. Get kidney doctor involved. Prognosis guarded. Please see further orders. MMODL / IJN: [id number] /
[2022-08-08 08:40] LABS: Calcium 7.7 mg/dL (8.4-10.2); Magnesium 1.6 mg/dL (1.6-2.3); Potassium 3.8 mmol/L (3.5-5.1)
[2022-08-08] MEDS: VANCOMYCIN 125 MG CAPSULE PO SCH ×4 (09:03→21:00)
[2022-08-08] MEDS: FENOFIBRATE 160 MG TAB PO SCH (09:03)
[2022-08-08] MEDS: METOPROLOL TARTRATE 25 MG TAB PO SCH ×3 (09:03→21:00)
[2022-08-08] MEDS: FOLIC ACID 1 MG TAB PO SCH (09:03)
[2022-08-08] MEDS: amLODIPine 5 MG TAB PO SCH (09:03)
[2022-08-08] MEDS: ATORVASTATIN 40 MG TAB PO SCH (09:03)
[2022-08-08] MEDS: ASPIRIN 81 MG PO SCH (09:03)
[2022-08-08] MEDS: FUROSEMIDE 10 MG/ML 4 ML VIAL IV SCH ×2 (09:03→21:01)
[2022-08-08] MEDS: INSULIN ASPART (NovoLOG) 100 UNIT/ML VIAL SQ SCH ×3 (09:04→17:56)
--- NOTE | 2022-08-08 09:04 | P.PN ---
Subjective Patient is seen in follow-up for acute kidney injury. Renal function fairly stable. On IV Lasix. Nonoliguric. Blood pressure stable. On 2 L nasal cannula. Vital signs are stable. General: Awake. No acute distress. HEENT: Head exam is unremarkable. On nasal cannula. LUNGS: Breath sounds decreased. HEART: Rate and Rhythm are regular. ABDOMEN: Soft, obese. EXTREMITITES: Bilateral BKA's noted. Objective - Vital Signs Vital signs: Vital Signs Temp 97.7 F 08/08/22 03:15 Pulse 67 08/08/22 08:58 Resp 17 08/08/22 08:58 BP 121/56 08/08/22 08:58 Pulse Ox 99 08/08/22 08:58 FiO2 Intake & Output 08/07/22 08/08/22 08/08/22 18:59 06:59 18:59 Intake Total 109.461 238.161 Output Total 600 880 Balance -490.539 -641.839 Weight 99 kg Intake: Intake, IV Titration 109.461 238.161 Amount Heparin Sod,Pork in 0.45% 109.461 238.161 NaCl 25,000 unit In 0.45 % NaCl 1 250ml.bag @ 18 UNITS/KG/HR 15.921 mls/hr IV .[id number] [facility] Rx#: [id number] Output: Urine 600 880 Other: Voiding Method Urinal # Voids 1 # Bowel Movements 2 - Labs CBC & Chem 7: 08/07/22 10:40 08/08/22 07:43 Labs: Abnormal Lab Results - Last 24 Hours (Table) 08/07/22 08/07/22 08/07/22 Range/Units 10:40 10:40 10:40 WBC 11.7 H (3.8-10.6) k/uL RBC 2.94 L (4.30-5.90) m/uL Hgb 8.0 L (13.0-17.5) gm/dL Hct 26.0 L (39.0-53.0) % MCHC 30.7 L (31.0-37.0) g/dL Neutrophils # 9.1 H (1.3-7.7) k/uL APTT 65.5 H (22.0-30.0) sec Chloride 97 L (98-107) mmol/L Carbon Dioxide 37 H (22-30) mmol/L BUN 62 H (9-20) mg/dL Creatinine 3.35 H (0.66-1.25) mg/dL Glucose 55 L (74-99) mg/dL POC Glucose (mg/dL) (70-110) mg/dL Calcium 7.9 L (8.4-10.2) mg/dL Iron (65-175) ug/dL % Saturation (15.00-50.00) Transferrin (204.0-354.0) mg/dL Ferritin (22.0-322.0) ng/mL Total Protein (PEP) (6.2-8.2) g/dL Procalcitonin (0.02-0.09) ng/mL C. difficile (EIA) Intrp (Negative) 08/07/22 08/07/22 08/07/22 Range/Units 10:40 10:40 13:11 WBC (3.8-10.6) k/uL RBC (4.30-5.90) m/uL Hgb (13.0-17.5) gm/dL Hct (39.0-53.0) % MCHC (31.0-37.0) g/dL Neutrophils # (1.3-7.7) k/uL APTT (22.0-30.0) sec Chloride (98-107) mmol/L Carbon Dioxide (22-30) mmol/L BUN (9-20) mg/dL Creatinine (0.66-1.25) mg/dL Glucose (74-99) mg/dL POC Glucose (mg/dL) (70-110) mg/dL Calcium (8.4-10.2) mg/dL Iron 37 L (65-175) ug/dL % Saturation 13.91 L (15.00-50.00) Transferrin 189.0 L (204.0-354.0) mg/dL Ferritin 1287.0 H (22.0-322.0) ng/mL Total Protein (PEP) 6.1 L (6.2-8.2) g/dL Procalcitonin 0.35 H (0.02-0.09) ng/mL C. difficile (EIA) Intrp (Negative) 08/07/22 08/07/22 08/07/22 Range/Units 14:20 16:26 20:02 WBC (3.8-10.6) k/uL RBC (4.30-5.90) m/uL Hgb (13.0-17.5) gm/dL Hct (39.0-53.0) % MCHC (31.0-37.0) g/dL Neutrophils # (1.3-7.7) k/uL APTT (22.0-30.0) sec Chloride (98-107) mmol/L Carbon Dioxide (22-30) mmol/L BUN (9-20) mg/dL Creatinine (0.66-1.25) mg/dL Glucose (74-99) mg/dL POC Glucose (mg/dL) 150 H 166 H (70-110) mg/dL Calcium (8.4-10.2) mg/dL Iron (65-175) ug/dL % Saturation (15.00-50.00) Transferrin (204.0-354.0) mg/dL Ferritin (22.0-322.0) ng/mL Total Protein (PEP) (6.2-8.2) g/dL Procalcitonin (0.02-0.09) ng/mL C. difficile (EIA) Intrp Positive A (Negative) 08/08/22 08/08/22 08/08/22 Range/Units 06:11 07:43 07:43 WBC (3.8-10.6) k/uL RBC (4.30-5.90) m/uL Hgb (13.0-17.5) gm/dL Hct (39.0-53.0) % MCHC (31.0-37.0) g/dL Neutrophils # (1.3-7.7) k/uL APTT 62.4 H (22.0-30.0) sec Chloride (98-107) mmol/L Carbon Dioxide 37 H (22-30) mmol/L BUN 63 H (9-20) mg/dL Creatinine 3.48 H (0.66-1.25) mg/dL Glucose 56 L (74-99) mg/dL POC Glucose (mg/dL) 55 L (70-110) mg/dL Calcium 7.7 L (8.4-10.2) mg/dL Iron (65-175) ug/dL % Saturation (15.00-50.00) Transferrin (204.0-354.0) mg/dL Ferritin (22.0-322.0) ng/mL Total Protein (PEP) (6.2-8.2) g/dL Procalcitonin (0.02-0.09) ng/mL C. difficile (EIA) Intrp (Negative) Assessment and Plan Plan: Assessment: 1. Acute kidney injury secondary to ATN secondary to cardiorenal syndrome. Renal function has been improving since last admission and creatinine peaked at 5.9 on 07/27/2022. Creatinine was 3.01 on admission - 3.48 today. Creatinine was near 1 in March 2021. UA from June 2022 showed protein, glucose. No hydronephrosis noted on kidney ultrasound. 2. Acute hypoxic respiratory failure secondary to volume overload. 3. Diabetes mellitus. 4. Status post bilateral below-knee medications. 5. History of coronary disease status post cardiac stenting and CABG. 6. Anemia. Iron deficiency noted. 7. Probable chronic kidney disease due to diabetic kidney disease. Need to establish baseline renal function. 8. Benign hypertension. Controlled. 9. Urinary retention on Flomax. Bladder scans have been negative. 10. C. diff colitis on oral vancomycin. Plan: Maintain IV Lasix for 1 more day. Repeat chest x-ray. 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 I will reorder workup for myeloma - results pending. Add IV iron. Follow-up echocardiogram. Avoid nephrotoxins. Continue to monitor renal function and urine output. Hold amlodipine for systolic blood pressure less than 120.
[2022-08-08] MEDS: SODIUM FERRIC GLUCONAT-SUCROSE 125 MG in SODIUM CHLORIDE 0.9% 100 ML IVPB SCH (10:44)
[2022-08-08 11:45] LABS: Glucose,Whole Blood 150 mg/dL (70-110)
--- NOTE | 2022-08-08 13:08 | CDI ---
Documentation Clarification Form Date: 08/08/2022 12:52:10 PM From: Shelli Darby CCS, CCDS Admit Date: 08/06/2022 04:47:00 PM Patient Name: Cruz Sorenson V Visit Number: [id number] Discharge Date: ATTENTION: The Clinical Documentation Specialists (CDI) and [facility] Coding Staff appreciate your assistance in clarifying documentation. Please respond to the clarification below the line at the bottom and electronically sign. The CDI & [facility] Coding staff will review the response and follow-up if needed. Please note: Queries are made part of the Legal Health Record. If you have any questions, please contact the author of this message via ITS. Dr. Manoj Ferris: Per the 08/06 ED Note: There was discussion of having the patient take Oxygen at night, but this has not started yet. (The patient was recently discharged to home after being treated for Pneumonia). Per the 08/07 Nephrology Consult: Acute Hypoxic Respiratory Failure secondary to volume overload is documented. Per the 08/07 H/P: He was sent home without Oxygen, which he qualified for last admission. Based on this information and the findings below, is there an additional diagnosis that is clinically appropriate for this patient? History/Risk Factors per the 08/07 H/P: AICD, CABG, Bilateral BKAs, Stent, Pacemaker. History per the 08/06 ED Note: Heart Failure, Hypertension, Hyperlipidemia, IDD II, Bilateral Neuropathy, CAD, DC, GERD, PAD, CKD III, Anemia, Ischemic Cardiomyopathy, Former smoker. Clinical Indicators: Presented to the ED on 08/06 via EMS with SOB. Clinical presentation consistent with CHF. Admit with Dyspnea. 08/06 VS: T 98.3, P 65, R 20, BP 105/52, PO 93 RA - 99 3Lnc, BMI: 42.6. 08/06 LAB: WBC 11.2, RBC 2.52, Hgb 7.4, Hct 21.8, Neutrophils 8.4; PT 12.3, INR 1.2, D Dimer 3.70; Na 135, Chloride 95, CO2 35, BUN 62, Creatinine 3.01, Glucose 161, Calcium 7.8, Troponin 0.177, -.191, 0.157; total Protein 5.8, Albumin 2.6, procalcitonin 0.34. 08/06 CXR: Persistent bilateral infiltrate & pleural effusion correlate for Pneumonia or consider CHF. 08/06 CT Chest: Bilateral pleural effusions and basilar pulmonary infiltrates and atelectasis which is increased compared to the old exam. Abnormality in the right lower lobe mostly new compared to old exam. Atherosclerotic vascular disease. Treatment 08/06: Telemetry, CHF Protocol, IV heparin Drip, [place] Catheter placement, O2 3Lnc, IV Na Chl 1,000 mls @ 20 mls/hr q24H, IV Lasix 20 mg q12H. 08/07: IV Lasix 40 mg x1 - q12H. Is there an additional diagnosis that is clinically appropriate for this patient? [ ] Acute Hypoxic Respiratory Failure [ ] Acute on Chronic Hypoxic Respiratory Failure [ ] Chronic Hypoxic Respiratory Failure [ ] Respiratory Failure Ruled Out [ ] Acute Respiratory Insufficiency [ ] Other Diagnosis, please specify: [ ] Unable to determine (Template Last Revised: November 2020) MTDD
[2022-08-08 13:15] LABS: Glucose,Whole Blood 138 mg/dL (70-110)
--- NOTE | 2022-08-08 13:33 | P.PN ---
Subjective This is a pleasant 66-year-old male past medical history significant for coronary artery disease status post CABG 2006 (WILD to LAD, SVG to obtuse marginal, SVG to RCA), ischemic cardiomyopathy with recovered ejection fraction and status post AICD placement , peripheral artery disease with bilateral occluded anterior tibial arteries in 2017, bilateral vascular wounds, type 2 diabetes,chronic kidney disease, neuropathy of upper and lower extremities. He followed in the office with Dr. Henderson, last follow up in 04/2021. We have been asked to see in consultation for shortness of breath. Patient was recently hospitalized from 07/20/20 with acute kidney injury, acute cholecystitis status post cholecystectomy on 07/18, pneumonia. He states that he was feeling well few days after his discharge. However Saturday morning he had symptoms of shortness of breath, felt "clammy", he noticed he had decreased oxygen saturations with a pulse ox at home. Also with symptoms of diarrhea. He states that he was unable to take his Lasix at home secondary to not being given at discharge and did not have Torsemide at home. He also was taken off his metoprolol and his losartan as well last admission. He feels that he has more fluid with increased edema, shortness of breath and weight gain. He denies any chest pain, lightheadedness, dizziness, palpitations, nausea, vomiting, abdominal pain. He denies any fever cough or chills. He was started on IV Lasix emergency department, he feels an improvement in his symptoms. 08/08/2022 Patient seen and examined at bedside, no acute distress. He endorses breathing has improved. He continues to have diarrhea. History was positive for C. difficile and was started on PO vancomycin. Overall his breathing has improved but not back to his baseline. Blood pressure 119/58, heart rate 69. Awaiting 2D echo Labs, sodium 139, potassium 3.8, BUN 63, serum creatinine 2.4 PHYSICAL EXAMINATION CONSTITUTIONAL: No apparent distress. HEENT: Head is normocephalic. Neck Supple. No JVD. CHEST EXAMINATION: Lungs are crackles bases to auscultation. No chest wall tenderness is noted on palpation or with deep breathing. HEART EXAMINATION: Regular rate and rhythm. S1, S2 heard. Systolic murmur No gallops or rub. ABDOMEN: Soft, nontender. Positive bowel sounds. EXTREMITIES: +2 radial pulses bilaterally. +1-2 lower extremity edema at thighs NEUROLOGIC EXAMINATION: Patient is awake, alert and oriented x3. ASSESSMENT -Acute on chronic heart failure with preserved ejection fraction, recent admission not taking Torsemide at home, recent discontinuing of beta ilsa and ARB medications -Elevated troponin, possibly related to type II TN -Diarrhea -C difficile -Recent cholecystectomy on 07/18/2022 -Recent admission to the hospital with acute kidney injury and pneumonia -Coronary artery disease status post 3 vessel CABG in 2006 -Ischemic cardiomyopathy with recovered ejection fraction and status post AICD placement -Peripheral artery disease with bilateral occluded anterior tibial arteries in 2017 -Bilateral vascular wounds -Type 2 Diabetes -Chronic Kidney Disease PLAN Obtain 2D echocardiogram Continue IV Lasix for additional 24 hours Monitor I/Os, daily weights, renal function and electrolytes Continue IV heparin for additional 24 hours Continue aspirin, statin, amlodipine, beta ilsa at this time Maximize medical therapy as tolerated Further recommendations based on clinical course Nurse Practitioner note has been reviewed, I agree with a documented findings and plan of care. Patient was seen and examined. Objective - Vital Signs Vital signs: Vital Signs Temp 97.7 F 08/08/22 03:15 Pulse 67 08/08/22 09:14 Resp 17 08/08/22 08:58 BP 121/56 08/08/22 08:58 Pulse Ox 99 08/08/22 08:58 FiO2 Intake & Output 08/07/22 08/08/22 08/08/22 18:59 06:59 18:59 Intake Total 109.461 238.161 118 Output Total 600 880 330 Balance -490.539 -641.839 -212 Weight 99 kg Intake: Intake, IV Titration 109.461 238.161 Amount Heparin Sod,Pork in 0.45% 109.461 238.161 NaCl 25,000 unit In 0.45 % NaCl 1 250ml.bag @ 18 UNITS/KG/HR 15.921 mls/hr IV .[id number] [facility] Rx#: [id number] Oral 118 Output: Urine 600 880 330 Other: Voiding Method Urinal Urinal # Voids 1 1 # Bowel Movements 2 - Labs CBC & Chem 7: 08/07/22 10:40 08/08/22 07:43 Labs: Abnormal Lab Results - Last 24 Hours (Table) 08/07/22 08/07/2222 Range/Units 10:40 10:40 10:40 WBC 11.7 H (3.8-10.6) k/uL RBC 2.94 L (4.30-5.90) m/uL Hgb 8.0 L (13.0-17.5) gm/dL Hct 26.0 L (39.0-53.0) % MCHC 30.7 L (31.0-37.0) g/dL Neutrophils # 9.1 H (1.3-7.7) k/uL APTT 65.5 H (22.0-30.0) sec Chloride 97 L (98-107) mmol/L Carbon Dioxide 37 H (22-30) mmol/L BUN 62 H (9-20) mg/dL Creatinine 3.35 H (0.66-1.25) mg/dL Glucose 55 L (74-99) mg/dL POC Glucose (mg/dL) (70-110) mg/dL Calcium 7.9 L (8.4-10.2) mg/dL Iron (65-175) ug/dL % Saturation (15.00-50.00) Transferrin (204.0-354.0) mg/dL Ferritin (22.0-322.0) ng/mL Total Protein (PEP) (6.2-8.2) g/dL Procalcitonin (0.02-0.09) ng/mL C. difficile (EIA) Intrp (Negative) 08/07/22 08/07/22 08/07/22 Range/Units 10:40 10:40 13:11 WBC (3.8-10.6) k/uL RBC (4.30-5.90) m/uL Hgb (13.0-17.5) gm/dL Hct (39.0-53.0) % MCHC (31.0-37.0) g/dL Neutrophils # (1.3-7.7) k/uL APTT (22.0-30.0) sec Chloride (98-107) mmol/L Carbon Dioxide (22-30) mmol/L BUN (9-20) mg/dL Creatinine (0.66-1.25) mg/dL Glucose (74-99) mg/dL POC Glucose (mg/dL) (70-110) mg/dL Calcium (8.4-10.2) mg/dL Iron 37 L (65-175) ug/dL % Saturation 13.91 L (15.00-50.00) Transferrin 189.0 L (204.0-354.0) mg/dL Ferritin 1287.0 H (22.0-322.0) ng/mL Total Protein (PEP) 6.1 L (6.2-8.2) g/dL Procalcitonin 0.35 H (0.02-0.09) ng/mL C. difficile (EIA) Intrp (Negative) 08/07/22 08/07/22 08/07/22 Range/Units 14:20 16:26 20:02 WBC (3.8-10.6) k/uL RBC (4.30-5.90) m/uL Hgb (13.0-17.5) gm/dL Hct (39.0-53.0) % MCHC (31.0-37.0) g/dL Neutrophils # (1.3-7.7) k/uL APTT (22.0-30.0) sec Chloride (98-107) mmol/L Carbon Dioxide (22-30) mmol/L BUN (9-20) mg/dL Creatinine (0.66-1.25) mg/dL Glucose (74-99) mg/dL POC Glucose (mg/dL) 150 H 166 H (70-110) mg/dL Calcium (8.4-10.2) mg/dL Iron (65-175) ug/dL % Saturation (15.00-50.00) Transferrin (204.0-354.0) mg/dL Ferritin (22.0-322.0) ng/mL Total Protein (PEP) (6.2-8.2) g/dL Procalcitonin (0.02-0.09) ng/mL C. difficile (EIA) Intrp Positive A (Negative) 08/08/22 08/08/22 08/08/22 Range/Units 06:11 07:43 07:43 WBC (3.8-10.6) k/uL RBC (4.30-5.90) m/uL Hgb (13.0-17.5) gm/dL Hct (39.0-53.0) % MCHC (31.0-37.0) g/dL Neutrophils # (1.3-7.7) k/uL APTT 62.4 H (22.0-30.0) sec Chloride (98-107) mmol/L Carbon Dioxide 37 H (22-30) mmol/L BUN 63 H (9-20) mg/dL Creatinine 3.48 H (0.66-1.25) mg/dL Glucose 56 L (74-99) mg/dL POC Glucose (mg/dL) 55 L (70-110) mg/dL Calcium 7.7 L (8.4-10.2) mg/dL Iron (65-175) ug/dL % Saturation (15.00-50.00) Transferrin (204.0-354.0) mg/dL Ferritin (22.0-322.0) ng/mL Total Protein (PEP) (6.2-8.2) g/dL Procalcitonin (0.02-0.09) ng/mL C. difficile (EIA) Intrp (Negative)
[2022-08-08 16:35] LABS: Glucose,Whole Blood 157 mg/dL (70-110)
[2022-08-08 17:54] LABS: Glucose,Whole Blood 129 mg/dL (70-110)
[2022-08-08] MEDS: SODIUM CHLORIDE 0.9% 1,000 ML IV SCH (18:01)
[2022-08-08] MEDS: TAMSULOSIN 0.4 MG CAP.ER.24H PO SCH (18:01)
--- NOTE | 2022-08-08 19:20 | CA ---
Transthoracic Echo Report Name: Cruz Sorenson Age: 66 Gender: M : 1955 Exam Date: 08/07/2022 11:12 Exam Location: [facility] Ht (in): 66 Wt (lb): 218 Ordering Physician: Nikole Seth Attending/Referring Phys: Leti Menard MD Medical Malpractice Paralegal Maria Esther Baker RDCS Procedure CPT: Indications: shortness of breath, heart failure. Cardiac Hx: Technical Quality: Good Contrast 1: Total Dose (mL): Contrast 2: Total Dose (mL): MEASUREMENTS (Male / Female) Normal Values 2D ECHO LV Diastolic Diameter PLAX 4.5 cm 4.2 - 5.9 / 3.9 - 5.3 cm LV Systolic Diameter PLAX 3.7 cm IVS Diastolic Thickness 1.1 cm 0.6 - 1.0 / 0.6 - 0.9 cm LVPW Diastolic Thickness 1.3 cm 0.6 - 1.0 / 0.6 - 0.9 cm LV Relative Wall Thickness 0.5 RV Internal Dim ED PLAX 3.3 cm LA Systolic Diameter LX 3.9 cm 3.0 - 4.0 / 2.7 - 3.8 cm LA Volume 56.4 cm??? 18 - 58 / 22 - 52 cm??? M-MODE Aortic Root Diameter MM 3.3 cm MV E Point Septal Separation 0.7 cm AV Cusp Separation MM 2.3 cm DOPPLER AV Peak Velocity 132.7 cm/s AV Peak Gradient 7.0 mmHg MV E' Velocity 4.2 cm/s TR Peak Velocity 314.5 cm/s TR Peak Gradient 39.6 mmHg Right Ventricular Systolic Press 44.1 mmHg FINDINGS Left Ventricle Left ventricular ejection fraction is estimated at 55-60 %. Left ventricular cavity size normal. Mildly increased septal wall thickness. Right Ventricle Mild right ventricular dilatation. Mild pulmonary hypertension. Right Atrium Normal right atrial size. Left Atrium Normal left atrial size. No evidence for an atrial septal defect. Mitral Valve Mitral annular calcification. Trace to mild mitral regurgitation. Aortic Valve Trileaflet aortic valve. Focal thickening of the aortic valve cusps. Tricuspid Valve [id number] tricuspid regurgitation. Pulmonic Valve Trace pulmonic regurgitation. Pericardium Normal pericardium. Small pericardial effusion by left ventricle Aorta Normal size aortic root and proximal ascending aorta. CONCLUSIONS Normal left ventricular dimension and systolic function Mildly dilated right ventricle with normal function Previewed by: Dr. Daryn Townsend MD (Electronically Signed) Final Date: 08 August 2022 19:19
[2022-08-08 20:10] LABS: Glucose,Whole Blood 211 mg/dL (70-110)
[2022-08-08] MEDS: INSULIN DETEMIR (LEVEMIR) 100 UNIT/ML SYR SQ SCH (21:00)
--- NOTE | 2022-08-09 05:46 | PN ---
PROGRESS NOTE SUBJECTIVE: Cruz presents today. He remains on IV Lasix. His creatinine is improving. It is in the 3.6 to 3.8 range. Continues on vancomycin. His diarrhea is improving. Await for renal functions in the morning. It is better every day. PHYSICAL EXAMINATION: VITAL SIGNS: Blood pressure 123/58, O2 95% on 2 L, temp 97.5, respiratory rate 16 to 18, pulse is 60s. CARDIOVASCULAR: S1, S2. LUNGS: Clear. GI: Soft, increased bowel sounds. ASSESSMENT: Clostridium difficile colitis, acute on chronic renal insufficiency, prerenal azotemia. Continue current treatments. Possible discharge home in the next day or 2 if this is improving. He will have to be cleared by renal physician. He is on IV Lasix as he needs to be set up for home oxygen at home prior to discharge. He has to have his oxygen. Continue current treatment. Prognosis guarded. MMODL / IJN: [id number] /
[2022-08-09 05:58] LABS: Glucose,Whole Blood 134 mg/dL (70-110)
[2022-08-09] MEDS: INSULIN ASPART (NovoLOG) 100 UNIT/ML VIAL SQ SCH ×3 (06:14→19:02)
--- NOTE | 2022-08-09 06:41 | PN ---
PROGRESS NOTE DATE OF SERVICE: 08/07/2022 SUBJECTIVE: A white male who was admitted with dehydration, prerenal azotemia, has C diff colitis. We are going to start him on oral vancomycin 125 q.i.d. He is improving with the C diff colitis and fluids. IV Lasix for renal insufficiency and CHF. Continue current treatments. OBJECTIVE: PSYCHIATRIC: Better effect. CARDIOVASCULAR: S1, S2. LUNGS: Rales at the base. GI: Soft, increased bowel sounds. HEMATOLOGY: Negative Homans. ASSESSMENT: Congestive heart failure, renal failure, urinary tract infection with sepsis, Clostridium difficile colitis. Prognosis extremely guarded. Started oral vancomycin. Continue current fluid rehydration, electrolyte imbalance. MMODL / IJN: [id number] /
[2022-08-09] MEDS: PANTOPRAZOLE 40 MG TABLET PO SCH (06:44)
[2022-08-09] MEDS: LEVOTHYROXINE 125 MCG TAB PO SCH (06:44)
[2022-08-09 07:37] LABS: Basophils # (A) 0.1 k/uL (0-0.2); Basophils % (A) 1 %; Eosinophils # (A) 0.3 k/uL (0-0.7); Eosinophils % (A) 3 %; HCT 22.9 % (39.0-53.0); HGB 7.4 gm/dL (13.0-17.5); Hypochromasia Moderate; Lymphocytes # (A) 1.6 k/uL (1.0-4.8); Lymphocytes % (A) 16 %; MCH 28.7 pg (25.0-35.0); MCHC 32.5 g/dL (31.0-37.0); MCV 88.5 fL (80.0-100.0); Mean Platelet Volume 8.6; Monocytes # (A) 0.7 k/uL (0-1.0); Monocytes % (A) 8 %; Neutrophils # (A) 6.7 k/uL (1.3-7.7); Neutrophils % (A) 70 %; Platelet Count 407 k/uL (150-450); RBC 2.59 m/uL (4.30-5.90); RDW 15.1 % (11.5-15.5); WBC 9.5 k/uL (3.8-10.6)
[2022-08-09 08:02] LABS: Albumin 2.6 g/dL (3.5-5.0); Calcium 7.9 mg/dL (8.4-10.2); Magnesium 1.7 mg/dL (1.6-2.3); Total Bilirubin 0.2 mg/dL (0.2-1.3)
--- NOTE | 2022-08-09 08:08 | XR ---
EXAMINATION TYPE: XR chest 1V DATE OF EXAM: 08/09/2022 COMPARISON: 08/06/2022 HISTORY: Shortness TECHNIQUE: Single frontal view of the chest is obtained. FINDINGS: Cardiac device is seen is postsurgical change with bilateral infiltrate and pleural effusi on. Diffuse interstitial pattern. No pneumothorax. Hypertrophic and degenerative change of the spine. IMPRESSION: Bilateral infiltrate greater on the left pleural effusion similar to prior exam. Correla te for pneumonia otherwise consider CHF.
--- NOTE | 2022-08-09 09:07 | P.PN ---
Subjective Patient is seen in follow-up for acute kidney injury. Renal function a little worse today from diuresis. On IV Lasix. Nonoliguric. Blood pressure stable. On 2 L nasal cannula. Oral intake fair. Vital signs are stable. General: Awake. No acute distress. HEENT: Head exam is unremarkable. On nasal cannula. LUNGS: Breath sounds decreased. HEART: Rate and Rhythm are regular. ABDOMEN: Soft, obese. EXTREMITITES: Bilateral BKA's noted. Objective - Vital Signs Vital signs: Vital Signs Temp 98.1 F 08/09/22 03:37 Pulse 70 08/09/22 03:37 Resp 16 08/09/22 03:37 BP 120/59 08/09/22 03:37 Pulse Ox 94 L 08/09/22 08:00 FiO2 Intake & Output 08/08/22 08/09/22 08/09/22 18:59 06:59 18:59 Intake Total 430.597 73.859 240 Output Total 330 Balance 100.597 73.859 240 Weight 95.5 kg Intake: Intake, IV Titration 194.597 73.859 Amount Heparin Sod,Pork in 0.45% 194.597 73.859 NaCl 25,000 unit In 0.45 % NaCl 1 250ml.bag @ 18 UNITS/KG/HR 15.921 mls/hr IV .[id number] [facility] Rx#: [id number] Oral 236 240 Output: Urine 330 Other: Voiding Method Urinal Urinal # Voids 1 - Labs CBC & Chem 7: 08/09/22 06:03 08/09/22 06:03 Labs: Abnormal Lab Results - Last 24 Hours (Table) 08/08/22 08/08/22 08/08/22 Range/Units 11:43 13:11 16:32 RBC (4.30-5.90) m/uL Hgb (13.0-17.5) gm/dL Hct (39.0-53.0) % APTT (22.0-30.0) sec Chloride (98-107) mmol/L Carbon Dioxide (22-30) mmol/L BUN (9-20) mg/dL Creatinine (0.66-1.25) mg/dL POC Glucose (mg/dL) 150 H 138 H 157 H (70-110) mg/dL Calcium (8.4-10.2) mg/dL Total Protein (6.3-8.2) g/dL Albumin (3.5-5.0) g/dL 08/08/22 08/08/22 08/09/22 Range/Units 17:52 20:08 05:57 RBC (4.30-5.90) m/uL Hgb (13.0-17.5) gm/dL Hct (39.0-53.0) % APTT (22.0-30.0) sec Chloride (98-107) mmol/L Carbon Dioxide (22-30) mmol/L BUN (9-20) mg/dL Creatinine (0.66-1.25) mg/dL POC Glucose (mg/dL) 129 H 211 H 134 H (70-110) mg/dL Calcium (8.4-10.2) mg/dL Total Protein (6.3-8.2) g/dL Albumin (3.5-5.0) g/dL 08/09/22 08/09/22 08/09/22 Range/Units 06:03 06:03 06:03 RBC 2.59 L (4.30-5.90) m/uL Hgb 7.4 L (13.0-17.5) gm/dL Hct 22.9 L (39.0-53.0) % APTT 74.1 H (22.0-30.0) sec Chloride 97 L (98-107) mmol/L Carbon Dioxide 35 H (22-30) mmol/L BUN 59 H (9-20) mg/dL Creatinine 3.74 H (0.66-1.25) mg/dL POC Glucose (mg/dL) (70-110) mg/dL Calcium 7.9 L (8.4-10.2) mg/dL Total Protein 6.0 L (6.3-8.2) g/dL Albumin 2.6 L (3.5-5.0) g/dL Assessment and Plan Plan: Assessment: 1. Acute kidney injury secondary to ATN secondary to cardiorenal syndrome. Renal function has been improving since last admission and creatinine peaked at 5.9 on 07/27/2022. Creatinine was 3.01 on admission - 3.74 today. Creatinine was near 1 in March 2021. UA from June 2022 showed protein, glucose. No hydronephrosis noted on kidney ultrasound. 2. Acute hypoxic respiratory failure secondary to volume overload. Improving. 3. Diabetes mellitus. 4. Status post bilateral below-knee medications. 5. History of coronary disease status post cardiac stenting and CABG. 6. Anemia. Iron deficiency noted. 7. Probable chronic kidney disease due to diabetic kidney disease. Need to establish baseline renal function. 8. Benign hypertension. Controlled. 9. Urinary retention on Flomax. Bladder scans have been negative. 10. C. diff colitis on oral vancomycin. 11. Acute on chronic diastolic CHF with mild to moderate tricuspid regurgitation. Plan: Change Lasix to 40 mg orally twice daily. 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 I have reordered workup for myeloma - results pending. Maintain IV iron. Avoid nephrotoxins. Continue to monitor renal function and urine output. Hold amlodipine for systolic blood pressure less than 120.
--- NOTE | 2022-08-09 09:48 | P.CONS ---
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 The date acquired was: 02/05/2021. The wound has been in treatment 18 weeks. The wound is currently classified as a Grade 2 wound with etiology of Diabetic Wound/Ulcer of the Lower Extremity and is located on the L eft Lower Leg. The wound measures 0.3cm length x 0.5cm width x 0.5cm depth; 0.118cm^2 area and 0.059cm^3 volume. There is no tunneling noted. There is a medium amount of serous drainage noted. The wound margin is flat and intact. There is large (67-100%) red granulation within the wound bed. There is no necrotic tissue within the wound bed. The periwound skin appearance exhibited: Scarring. The periwound skin appearance did not exhibit: Callus, Crepitus, Excoriation, Induration, Rash, Dry/Scaly, Maceration, Atrophie [place], Cyanosis, Ecchymosis, Hemosiderin Staining, Mottled, Pallor, Rubor, Erythema. Review Of Systems: Constitutional: No fever, no chills, no night sweats. No weight change. No weakness, fatigue or lethargy. No daytime sleepiness. Integumentary:reports wounds, no lesions. No rash or pruritus. No unusual bruising. No change in hair or nails. Physical exam: General Appearance: Alert, cooperative, no distress, appears stated age. Skin: See HPI all other Skin color, texture, tugor normal, no rashes or lesions. Neurologic: Alert oriented x3 Assessment: 1. 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 Diabetes with skin ulceration Plan: 1. Apply absorptive silver moistened and border foam to the site. Change Saturday. Patient will return to the wound care center August 16 at 2:00. Thank you for the consultation any questions please contact the wound care center DNP note has been reviewed and discussed with Dr. Lira and the impression and plan of care has been directed as dictated. Past Medical History Past Medical History: Heart Failure, Diabetes Mellitus, Diabetes Mellitus, Eye Disorder, GERD/Reflux, Hearing Disorder / Deafness, Hyperlipidemia, Hy pertension, Myocardial Infarction (MD), Osteoarthritis (OA), Renal Disease, Skin Disorder, Thyroid Disorder Additional Past Medical History / Comment(s): IDDM type II, neuropathy bilateral hands/forearms/lower legs/feet, WCC pt, bilateral leg edema, [place]. wounds right foot w/wound vac, ischemic cardiomyopathy/AICD, vtach, past medical record documents paroxysmal Afib/pt does not recall this, bilateral lower leg intermittent claudication/PAD, chronic renal disease stage III, anemia- transfusion in December per pt., bilateral tinnitis/UM[place]A [place], hypothyroidchronic renal disease stage III, anemia, bilateral tinnitis/UM[place]ILLA TRIBE, hypothyroid, arthritis bilateral hands with R hand worse, Last Myocardial Infarction Date:: 2006 History of Any Multi-Drug Resistant Organisms: None Reported Past Surgical History: AICD, Cholecystectomy, Coronary Bypass/CABG, Heart Catheterization, Heart Catheterization With Stent, Pacemaker Additional Past Surgical History / Comment(s): PCI with one stent 1998, 2006 CABG 3 vessel and AICD, DFTs, aortagram with runoff, colonoscopy, bilateral cataract removals/lens implants, multiple debridements of wounds, left bka, lap choley 07/23/22 Past Anesthesia/Blood Transfusion Reactions: No Reported Reaction Date of Last Stent Placement:: 1998 Type of Cardiac Device: Permanent Pacemaker, AICD Device Placement Date:: 2006 Past Psychological History: No Psychological Hx Reported Additional Psychological History / Comment(s): Pt resides with his spouse. using wheelchair and slideboard, pt. bilateral BKA. pt. has home care for wound care on his left stump Smoking Status: Former smoker Past Alcohol Use History: None Reported Additional Past Alcohol Use History / Comment(s): STARTED SMOKING AT AGE 17 QUIT 2006 SMOKED 1 1/2 PPD Past Drug Use History: None Reported - Past Family History Sister(s) Additional Family Medical History / Comment(s): Pt has a sister with COPD, another sister with diabetes/copd/htn and another sister with diabetes. Father Family Medical History: Myocardial Infarction (MD) Additional Family Medical History / Comment(s): Father of a MD at the age of 75 yrs. Brother(s) Family Medical History: Coronary Artery Disease (CAD), CVA/TIA, Diabetes Mellitus, Myocardial Infarction (MD) Additional Family Medical History / Comment(s): One brother had a MD at 38yrs and at age 48yrs. Another brother is alive and had a stroke. Mother Family Medical History: Diabetes Mellitus, Renal Disease Additional Family Medical History / Comment(s): Mother at age 62 from renal failure Medications and Allergies Home Medications Medication Instructions Recorded Confirmed Type Fenofibrate 160 mg PO DAILY 03/31/14 08/06/22 History Insulin Lispro [humaLOG Kwikpen] See Protocol SQ AC-TID 03/31/14 08/06/22 History Atorvastatin [Lipitor] 40 mg PO DAILY 05/24/20 08/06/22 History Metoprolol Tartrate 25 mg PO TID 05/24/20 08/06/22 History Aspirin 81 mg PO DAILY 90 Days #90 chew 12/16/20 08/06/22 Rx Folic Acid 1 mg PO DAILY 90 Days #90 tab 12/27/20 08/06/22 Rx Ergocalciferol (Vitamin D2) 1,250 mcg PO MO 06/02/21 08/06/22 History [Drisdol (50,000 Iu)] Insulin Glargine,Hum.rec.anlog 30 units SQ HS 06/02/21 08/06/22 History [Toujeo Solostar] Levothyroxine Sodium [Synthroid] 50 mcg PO DAILY 06/02/21 08/06/22 History Levothyroxine Sodium [Synthroid] 200 mcg PO DAILY 06/02/21 08/06/22 History Insulin Lispro [humaLOG Kwikpen] 5 unit SQ AC-TID 07/25/21 08/06/22 History Finerenone [Kerendia] 10 mg PO HS 07/18/22 08/06/22 History Omeprazole 40 mg PO DAILY 07/18/22 08/06/22 History Tamsulosin [Flomax] 0.4 mg PO PC-SUPPER #30 cap 08/03/22 08/06/22 Rx Torsemide [Demadex] 40 mg PO DAILY #30 tab 08/03/22 08/06/22 Rx amLODIPine [Norvasc] 5 mg PO DAILY #30 tab 08/03/22 08/06/22 Rx Allergies Allergy/AdvReac Type Severity Reaction Status Date / Time No Known Allergies Allergy Verified 08/06/22 16:47 Physical Exam Vitals: Vital Signs Temp Pulse Resp BP Pulse Ox 08/09/22 08:00 94 L 08/09/22 03:37 98.1 F 70 16 120/59 96 08/09/22 01:38 71 18 08/08/22 23:58 71 18 120/58 95 08/08/22 20:00 97.5 F L 68 18 123/58 95 08/08/22 16:00 96.6 F L 66 20 134/63 99 08/08/22 12:04 69 16 119/58 98 Intake and Output 08/08/22 08/09/22 08/09/22 22:59 06:59 14:59 Intake Total 194.597 73.859 240 Balance 194.597 73.859 240 Intake: Intake, IV Titration 194.597 73.859 Amount Heparin Sod,Pork in 0.45% 194.597 73.859 NaCl 25,000 unit In 0.45 % NaCl 1 250ml.bag @ 18 UNITS/KG/HR 15.921 mls/hr IV .[id number] [facility] Rx#: [id number] Oral 240 Other: Voiding Method Urinal Urinal Results CBC & Chem 7: 08/09/22 06:03 08/09/22 06:03 Labs: Abnormal Lab Results - Last 24 Hours (Table) 08/08/22 08/08/22 08/08/22 Range/Units 11:43 13:11 16:32 RBC (4.30-5.90) m/uL Hgb (13.0-17.5) gm/dL Hct (39.0-53.0) % APTT (22.0-30.0) sec Chloride (98-107) mmol/L Carbon Dioxide (22-30) mmol/L BUN (9-20) mg/dL Creatinine (0.66-1.25) mg/dL POC Glucose (mg/dL) 150 H 138 H 157 H (70-110) mg/dL Calcium (8.4-10.2) mg/dL Total Protein (6.3-8.2) g/dL Albumin (3.5-5.0) g/dL 08/08/22 08/08/22 08/09/22 Range/Units 17:52 20:08 05:57 RBC (4.30-5.90) m/uL Hgb (13.0-17.5) gm/dL Hct (39.0-53.0) % APTT (22.0-30.0) sec Chloride (98-107) mmol/L Carbon Dioxide (22-30) mmol/L BUN (9-20) mg/dL Creatinine (0.66-1.25) mg/dL POC Glucose (mg/dL) 129 H 211 H 134 H (70-110) mg/dL Calcium (8.4-10.2) mg/dL Total Protein (6.3-8.2) g/dL Albumin (3.5-5.0) g/dL 08/09/22 08/09/22 08/09/22 Range/Units 06:03 06:03 06:03 RBC 2.59 L (4.30-5.90) m/uL Hgb 7.4 L (13.0-17.5) gm/dL Hct 22.9 L (39.0-53.0) % APTT 74.1 H (22.0-30.0) sec Chloride 97 L (98-107) mmol/L Carbon Dioxide 35 H (22-30) mmol/L BUN 59 H (9-20) mg/dL Creatinine 3.74 H (0.66-1.25) mg/dL POC Glucose (mg/dL) (70-110) mg/dL Calcium 7.9 L (8.4-10.2) mg/dL Total Protein 6.0 L (6.3-8.2) g/dL Albumin 2.6 L (3.5-5.0) g/dL Assessment and Plan (1) Non-pressure chronic ulcer of other part of left lower leg with fat layer exposed Current Visit: No Status: Acute Code(s): L97.822 - NON-PRS CHRONIC ULCER OTH PRT L LOW LEG W FAT LAYER EXPOSED SNOMED Code(s): 55370030 (2) Type 2 diabetes mellitus with other skin ulcer Current Visit: No Status: Acute Code(s): E11.622 - TYPE 2 DIABETES MELLITUS WITH OTHER SKIN ULCER; L98.499 - NON-PRESSURE CHRONIC ULCER OF SKIN OF SITES W UNSP SEVERITY SNOMED Code(s): 243267490
--- NOTE | 2022-08-09 10:11 | CDI ---
Documentation Clarification Form Date: 08/09/2022 09:54:16 AM From: Shelli Darby CCS, CCDS Admit Date: 08/06/2022 04:47:00 PM Patient Name: Cruz Sorenson V Visit Number: [id number] Discharge Date: ATTENTION: The Clinical Documentation Specialists (CDI) and [facility] Coding Staff appreciate your assistance in clarifying documentation. Please respond to the clarification below the line at the bottom and electronically sign. The CDI & [facility] Coding staff will review the response and follow-up if needed. Please note: Queries are made part of the Legal Health Record. If you have any questions, please contact the author of this message via ITS. Dr. Johny Granado: UTI with Sepsis is documented in the 08/08 Attending Physician Progress note and may lack clinical evidence in the medical record to support the diagnosis. Additional clarification is requested. History/Risk Factors per the 08/07 H/P: CHF, CAD status post AICD, CABG, Stents and Bilateral BKAs. Per the 08/06 ED History: CHF, DM, GERD, IROQUOIS, Hyperlipidemia, Hypertension, AR, OA, CKD III, Ischemic Cardiomyopathy, PAD with bilateral lower extremity intermittent claudication, Hypothyroidism, OA bilateral hands. Former smoker. Clinical Indicators: Presented to the ED on 08/06 via EMS with SOB and hypoxia. Recently admitted to the hospital and treated for pneumonia and also had a cholecystectomy, the patient no longer has a Armenta catheter, no recent cough or fever. The patient was to start home O2 but has not yet. Clinical presentation consistent with CHF. Admit with Dyspnea. 08/06 VS: T 98.3, P 65, R 20, BP 105/52, PO 93 RA - 99 3Lnc. BMI: 41.1. 08/06 LAB: WBC 11.2, RBC 2.52, Hgb 7.4, Hct 21.8, Neutrophils 8.4; PT 12.3, INR 1.2, D Dimer 3.70; Na 135, Chloride 95, CO2 35, BUN 62, Creatinine 3.01, Glucose 161, Lactic Acid 1.2, Calcium 7.8, Troponin 0.177, 0.191, 0.157; Total protein 5.8, Albumin 2.6, Procalcitonin 0.34. No UA done this admission. 08/06 CXR: Persistent bilateral infiltrate and pleural effusion correlate for pneumonia otherwise consider CHF. 08/06 CT Chest: Bilateral pleural effusions and basilar pulmonary infiltrates and atelectasis increased. Treatment 08/06: Telemetry, CHF protocol, IV Heparin Drip, Armenta catheter, O2 3Lnc, po Aspirin 325 mg x1, IV Na Chl 1,000 mls @ 20 mls/hr q24H, Nitropaste QID, IV Lasix 20 mg q12H. 08/07: IV Vancomycin 125 mg QID, IV Lasix 40 mg q12H. Please clarify if Sepsis and UTI are valid diagnoses? [ ] Yes, Sepsis and UTI, Present on Admission, were present as evidenced by, please specify: [ ] Yes, Sepsis and UTI, Not Present on Admission, were present as evidenced by, please specify: [ ] No, Sepsis and UTI are ruled out [ ] Other (please specify diagnosis) [ ] Unable to determine (Template Last Revised: November 2020) MTDD
--- NOTE | 2022-08-09 10:14 | P.PN ---
Subjective Progress Note Date: 08/08/22 Principal diagnosis: Bilateral basilar atelectasis due to poor respiratory effort Bilateral small pleural effusion due to congestive heart failure suspect acute on chronic systolic heart failure Ischemic cardiomyopathy Recent left lower lobe pneumonia status post antibiotic therapy Acute cholecystitis status post recent cholecystectomy 08/08/2022, patient seen eval examined during the rounds labs reviewed medications reviewed care plan discussed, shortness of breath is present remains on supplemental oxygen denies any chest pain however, patient remains afebrile echocardiogram is pending, blood glucose running on the higher side last check was 210 Patient is a 66-year-old male well-known to me he is status post bilateral BKA, patient had left lower lobe pneumonia and acute cholecystitis with chronic kidney disease with acute onset was hospitalized later that those problems and discharge last week came back with problems of dizziness lightheadedness. He has significant cardiovascular disease status post a CABG 2006 history of cardiomyopathy ischemic in nature ejection fraction less than 30% status post AICD, peripheral arterial disease chronic kidney disease recent pneumonia status post cholecystectomy, patient was feeling cold and clammy has been short of breath oxygen saturation dropped down while decided to bring him into the hospital. Significant workup included a computed tomography scan of his chest is reviewed by basilar atelectasis along with effusion, EKG particular paced rhythm, VQ low probability for PE, white cell count is 11.7 creatinine is 2.3 BUN 62 BNP is 8570 d-dimer 3.7, patient has been admitted into the hospital with acute on chronic heart failure and type II [place] cardiovascular services following has been on dialysis and IV heparin along with continuation of antihypertensive aspirin and statins, Objective - Vital Signs Vital signs: Vital Signs Temp 96.6 F L 08/08/22 16:00 Pulse 66 08/08/22 16:00 Resp 20 08/08/22 16:00 BP 134/63 08/08/22 16:00 Pulse Ox 99 08/08/22 16:00 FiO2 Intake & Output 08/07/22 08/08/22 08/08/22 18:59 06:59 18:59 Intake Total 109.461 238.161 430.597 Output Total 600 880 330 Balance -490.539 -641.839 100.597 Weight 99 kg 95.5 kg Intake: Intake, IV Titration 109.461 238.161 194.597 Amount Heparin Sod,Pork in 0.45% 109.461 238.161 194.597 NaCl 25,000 unit In 0.45 % NaCl 1 250ml.bag @ 18 UNITS/KG/HR 15.921 mls/hr IV .[id number] [facility] Rx#: [id number] Oral 236 Output: Urine 600 880 330 Other: Voiding Method Urinal Urinal # Voids 1 1 # Bowel Movements 2 - Exam - Constitutional General appearance: average body habitus, cooperative, disheveled - EENT Eyes: EOMI, PERRLA ENT: normal oropharynx Ears: bilateral: normal - Neck Neck: lymphadenopathy Carotids: bilateral: upstroke normal Thyroid: bilateral: normal size - Respiratory Respiratory: bilateral: diminished - Cardiovascular Rhythm: regular Heart sounds: normal: S1, S2 - Gastrointestinal General gastrointestinal: normal bowel sounds, soft - Neurologic Neurologic: CNII-XII intact - Musculoskeletal Musculoskeletal: generalized weakness - Psychiatric Psychiatric: A&O x's 3, appropriate affect, intact judgment & insight - Labs CBC & Chem 7: 08/09/22 06:03 08/09/22 06:03 Labs: Abnormal Lab Results - Last 24 Hours (Table) 08/07/22 08/07/22 08/08/22 Range/Units 13:11 20:02 06:11 APTT (22.0-30.0) sec Carbon Dioxide (22-30) mmol/L BUN (9-20) mg/dL Creatinine (0.66-1.25) mg/dL Glucose (74-99) mg/dL POC Glucose (mg/dL) 166 H 55 L (70-110) mg/dL Calcium (8.4-10.2) mg/dL Procalcitonin 0.35 H (0.02-0.09) ng/mL 08/08/22 08/08/22 08/08/22 Range/Units 07:43 07:43 11:43 APTT 62.4 H (22.0-30.0) sec Carbon Dioxide 37 H (22-30) mmol/L BUN 63 H (9-20) mg/dL Creatinine 3.48 H (0.66-1.25) mg/dL Glucose 56 L (74-99) mg/dL POC Glucose (mg/dL) 150 H (70-110) mg/dL Calcium 7.7 L (8.4-10.2) mg/dL Procalcitonin (0.02-0.09) ng/mL 08/08/22 08/08/22 08/08/22 Range/Units 13:11 16:32 17:52 APTT (22.0-30.0) sec Carbon Dioxide (22-30) mmol/L BUN (9-20) mg/dL Creatinine (0.66-1.25) mg/dL Glucose (74-99) mg/dL POC Glucose (mg/dL) 138 H 157 H 129 H (70-110) mg/dL Calcium (8.4-10.2) mg/dL Procalcitonin (0.02-0.09) ng/mL Assessment and Plan Assessment: Bilateral basilar atelectasis due to poor respiratory effort Bilateral small pleural effusion due to congestive heart failure suspect acute on chronic systolic heart failure Ischemic cardiomyopathy Recent left lower lobe pneumonia status post antibiotic therapy Acute cholecystitis status post recent cholecystectomy Plan: Agree with cardiovascular workup as outlined above Continue gentle diuresis monitor and trend renal functions Deep breathing exercises incentive spirometry Monitor observe off of antibiotics therapy Time with Patient: Greater than 30
--- NOTE | 2022-08-09 10:20 | P.PN ---
Subjective Progress Note Date: 08/09/22 Principal diagnosis: Bilateral basilar atelectasis due to poor respiratory effort Bilateral small pleural effusion due to congestive heart failure suspect acute on chronic systolic heart failure Ischemic cardiomyopathy Recent left lower lobe pneumonia status post antibiotic therapy Acute cholecystitis status post recent cholecystectomy 08/09/2022, patient seen eval examined during the rounds labs reviewed medications reviewed care plan discussed, ongoing shortness of breath cough is mostly dry and nonproductive, denies any chest pain, chest x-ray performed today revealed bilateral infiltrate versus atelectasis and small effusion, and labs today reveal white cell count is 9.5 with hemoglobin hematocrit 7.4/22.9, patient remains on heparin with PTT of 74, BUN/creatinine is 59/3.74, overall stable, C. difficile toxin is positive, pro-calcitonin mildly elevated, ejection fraction on echocardiogram 55-60% with mild dilatation of right ventricle 08/08/2022, patient seen eval examined during the rounds labs reviewed medications reviewed care plan discussed, shortness of breath is present remains on supplemental oxygen denies any chest pain however, patient remains afebrile echocardiogram is pending, blood glucose running on the higher side last check was 210 Patient is a 66-year-old male well-known to me he is status post bilateral BKA, patient had left lower lobe pneumonia and acute cholecystitis with chronic kidney disease with acute onset was hospitalized later that those problems and discharge last week came back with problems of dizziness lightheadedness. He has significant cardiovascular disease status post a CABG 2006 history of cardiomyopathy ischemic in nature ejection fraction less than 30% status post AICD, peripheral arterial disease chronic kidney disease recent pneumonia status post cholecystectomy, patient was feeling cold and clammy has been short of breath oxygen saturation dropped down while decided to bring him into the hospit al. Significant workup included a computed tomography scan of his chest is reviewed by basilar atelectasis along with effusion, EKG particular paced rhythm, VQ low probability for PE, white cell count is 11.7 creatinine is 2.3 BUN 62 BNP is 8570 d-dimer 3.7, patient has been admitted into the hospital with acute on chronic heart failure and type II [place] cardiovascular services following has been on dialysis and IV heparin along with continuation of antihypertensive aspirin and statins, Objective - Vital Signs Vital signs: Vital Signs Temp 98.1 F 08/09/22 03:37 Pulse 70 08/09/22 03:37 Resp 16 08/09/22 03:37 BP 120/59 08/09/22 03:37 Pulse Ox 94 L 08/09/22 08:00 FiO2 Intake & Output 08/08/22 08/09/22 08/09/22 18:59 06:59 18:59 Intake Total 430.597 73.859 240 Output Total 330 Balance 100.597 73.859 240 Weight 95.5 kg Intake: Intake, IV Titration 194.597 73.859 Amount Heparin Sod,Pork in 0.45% 194.597 73.859 NaCl 25,000 unit In 0.45 % NaCl 1 250ml.bag @ 18 UNITS/KG/HR 15.921 mls/hr IV .[id number] [facility] Rx#: [id number] Oral 236 240 Output: Urine 330 Other: Voiding Method Urinal Urinal # Voids 1 - Exam - Constitutional General appearance: average body habitus, cooperative, disheveled - EENT Eyes: EOMI, PERRLA ENT: normal oropharynx Ears: bilateral: normal - Neck Neck: lymphadenopathy Carotids: bilateral: upstroke normal Thyroid: bilateral: normal size - Respiratory Respiratory: bilateral: diminished - Cardiovascular Rhythm: regular Heart sounds: normal: S1, S2 - Gastrointestinal General gastrointestinal: normal bowel sounds, soft - Neurologic Neurologic: CNII-XII intact - Musculoskeletal Musculoskeletal: generalized weakness - Psychiatric Psychiatric: A&O x's 3, appropriate affect, intact judgment & insight - Labs CBC & Chem 7: 08/09/22 06:03 08/09/22 06:03 Labs: Abnormal Lab Results - Last 24 Hours (Table) 08/08/22 08/08/22 08/08/22 Range/Units 11:43 13:11 16:32 RBC (4.30-5.90) m/uL Hgb (13.0-17.5) gm/dL Hct (39.0-53.0) % APTT (22.0-30.0) sec Chloride (98-107) mmol/L Carbon Dioxide (22-30) mmol/L BUN (9-20) mg/dL Creatinine (0.66-1.25) mg/dL POC Glucose (mg/dL) 150 H 138 H 157 H (70-110) mg/dL Calcium (8.4-10.2) mg/dL Total Protein (6.3-8.2) g/dL Albumin (3.5-5.0) g/dL 08/08/22 08/08/22 08/09/22 Range/Units 17:52 20:08 05:57 RBC (4.30-5.90) m/uL Hgb (13.0-17.5) gm/dL Hct (39.0-53.0) % APTT (22.0-30.0) sec Chloride (98-107) mmol/L Carbon Dioxide (22-30) mmol/L BUN (9-20) mg/dL Creatinine (0.66-1.25) mg/dL POC Glucose (mg/dL) 129 H 211 H 134 H (70-110) mg/dL Calcium (8.4-10.2) mg/dL Total Protein (6.3-8.2) g/dL Albumin (3.5-5.0) g/dL 08/09/22 08/09/22 08/09/22 Range/Units 06:03 06:03 06:03 RBC 2.59 L (4.30-5.90) m/uL Hgb 7.4 L (13.0-17.5) gm/dL Hct 22.9 L (39.0-53.0) % APTT 74.1 H (22.0-30.0) sec Chloride 97 L (98-107) mmol/L Carbon Dioxide 35 H (22-30) mmol/L BUN 59 H (9-20) mg/dL Creatinine 3.74 H (0.66-1.25) mg/dL POC Glucose (mg/dL) (70-110) mg/dL Calcium 7.9 L (8.4-10.2) mg/dL Total Protein 6.0 L (6.3-8.2) g/dL Albumin 2.6 L (3.5-5.0) g/dL Assessment and Plan Assessment: C. difficile colitis Bilateral basilar atelectasis due to poor respiratory effort Bilateral small pleural effusion due to congestive heart failure suspect acute on chronic diastolic heart failure Ischemic cardiomyopathy, ejection fraction on recent echo normalized to 35% Recent left lower lobe pneumonia status post antibiotic therapy Acute cholecystitis status post recent cholecystectomy Plan: Agree with cardiovascular workup as outlined above Continue gentle diuresis monitor and trend renal functions Deep breathing exercises incentive spirometry Continue oral vancomycin for C. difficile colitis Monitor observe off of antibiotics therapy as doubt pneumonia and also in light of active C. difficile colitis Time with Patient: Greater than 30
[2022-08-09] MEDS: ASPIRIN 81 MG PO SCH (10:50)
[2022-08-09] MEDS: METOPROLOL TARTRATE 25 MG TAB PO SCH ×3 (10:50→20:42)
[2022-08-09] MEDS: SODIUM FERRIC GLUCONAT-SUCROSE 125 MG in SODIUM CHLORIDE 0.9% 100 ML IVPB SCH (10:50)
[2022-08-09] MEDS: FENOFIBRATE 160 MG TAB PO SCH (10:50)
[2022-08-09] MEDS: ATORVASTATIN 40 MG TAB PO SCH (10:50)
[2022-08-09] MEDS: FOLIC ACID 1 MG TAB PO SCH (10:50)
[2022-08-09] MEDS: amLODIPine 5 MG TAB PO SCH (10:50)
[2022-08-09] MEDS: VANCOMYCIN 125 MG CAPSULE PO SCH ×4 (10:52→20:43)
[2022-08-09 11:39] LABS: Glucose,Whole Blood 97 mg/dL (70-110)
--- NOTE | 2022-08-09 12:34 | P.PN ---
Subjective This is a pleasant 66-year-old male past medical history significant for coronary artery disease status post CABG 2006 (WILD to LAD, SVG to obtuse marginal, SVG to RCA), ischemic cardiomyopathy with recovered ejection fraction and status post AICD placement , peripheral artery disease with bilateral occluded anterior tibial arteries in 2017, bilateral vascular wounds, type 2 diabetes,chronic kidney disease, neuropathy of upper and lower extremities. He followed in the office with Dr. Henderson, last follow up in 04/2021. We have bee n asked to see in consultation for shortness of breath. Patient was recently hospitalized from 07/20/20 with acute kidney injury, acute cholecystitis status post cholecystectomy on 07/18, pneumonia. He states that he was feeling well few days after his discharge. However Saturday morning he had symptoms of shortness of breath, felt "clammy", he noticed he had decreased oxygen saturations with a pulse ox at home. Also with symptoms of diarrhea. He states that he was unable to take his Lasix at home secondary to not being given at discharge and did not have Torsemide at home. He also was taken off his metoprolol and his losartan as well last admission. He feels that he has more fluid with increased edema, shortness of breath and weight gain. He denies any chest pain, lightheadedness, dizziness, palpitations, nausea, vomiting, abdominal pain. He denies any fever cough or chills. He was started on IV Lasix emergency department, he feels an improvement in his symptoms. 08/08/2022 Patient seen and examined at bedside, no acute distress. He endorses breathing has improved. He continues to have diarrhea. History was positive for C. difficile and was started on PO vancomycin. Overall his breathing has improved but not back to his baseline. Blood pressure 119/58, heart rate 69. Awaiting 2D echo 07/10 Patient seen and examined. Patient denies any chest pain or pressure. States his diarrhea is somewhat improving. Creatinine increasing up to 3.7 and therefore changed to oral Lasix by nephrology. Echocardiogram resulted with EF 55-60%, mild mitral regurgitation, [id number] tricuspid regurgitation PHYSICAL EXAMINATION CONSTITUTIONAL: No apparent distress. HEENT: Head is normocephalic. Neck Supple. No JVD. CHEST EXAMINATION: Lungs are crackles bases to auscultation. No chest wall tenderness is noted on palpation or with deep breathing. HEART EXAMINATION: Regular rate and rhythm. S1, S2 heard. Systolic murmur No gallops or rub. ABDOMEN: Soft, nontender. Positive bowel sounds. EXTREMITIES: +2 radial pulses bilaterally. +1-2 lower extremity edema at thighs NEUROLOGIC EXAMINATION: Patient is awake, alert and oriented x3. ASSESSMENT -Acute on chronic heart failure with preserved ejection fraction, recent admission not taking Torsemide at home, recent discontinuing of beta ilsa and ARB medications -Elevated troponin, type II AL secondary to c diff, CKD -Diarrhea -C difficile -Recent cholecystectomy on 07/18/2022 -Recent admission to the hospital with acute kidney injury and pneumonia -Coronary artery disease status post 3 vessel CABG in 2006 -Ischemic cardiomyopathy with recovered ejection fraction and status post AICD placement -Peripheral artery disease with bilateral occluded anterior tibial arteries in 2017 -Bilateral vascular wounds -Type 2 Diabetes -Chronic Kidney Disease PLAN Echocardiogram reviewed with preserved EF without significant valvular disease. Patient is having worsened kidney function and therefore continue with oral diuretics and monitor closely. Okay to stop heparin drip and monitor clinically. Monitor I/Os, daily weights, renal function and electrolytes Continue IV heparin for additional 24 hours Continue aspirin, statin, amlodipine, beta ilsa at this time Maximize medical therapy as tolerated Further recommendations based on clinical course Objective - Vital Signs Vital signs: Vital Signs Temp 97.9 F 08/09/22 10:50 Pulse 66 08/09/22 10:50 Resp 18 08/09/22 10:50 BP 123/59 08/09/22 10:50 Pulse Ox 95 08/09/22 10:50 FiO2 Intake & Output 08/08/22 08/09/22 08/09/22 18:59 06:59 18:59 Intake Total 430.597 73.859 400.985 Output Total 330 Balance 100.597 73.859 400.985 Weight 95.5 kg Intake: Intake, IV Titration 194.597 73.859 160.985 Amount Heparin Sod,Pork in 0.45% 194.597 73.859 160.985 NaCl 25,000 unit In 0.45 % NaCl 1 250ml.bag @ 18 UNITS/KG/HR 15.921 mls/hr IV .[id number] COUNTS INCLUDE 234 BEDS AT THE [facility] Rx#: [id number] Oral 236 240 Output: Urine 330 Other: Voiding Method Urinal Urinal Urinal # Voids 1 - Labs CBC & Chem 7: 08/09/22 06:03 08/09/22 06:03 Labs: Abnormal Lab Results - Last 24 Hours (Table) 08/08/22 08/08/22 08/08/22 Range/Units 13:11 16:32 17:52 RBC (4.30-5.90) m/uL Hgb (13.0-17.5) gm/dL Hct (39.0-53.0) % APTT (22.0-30.0) sec Chloride (98-107) mmol/L Carbon Dioxide (22-30) mmol/L BUN (9-20) mg/dL Creatinine (0.66-1.25) mg/dL POC Glucose (mg/dL) 138 H 157 H 129 H (70-110) mg/dL Calcium (8.4-10.2) mg/dL Total Protein (6.3-8.2) g/dL Albumin (3.5-5.0) g/dL 08/08/22 08/09/22 08/09/22 Range/Units 20:08 05:57 06:03 RBC (4.30-5.90) m/uL Hgb (13.0-17.5) gm/dL Hct (39.0-53.0) % APTT 74.1 H (22.0-30.0) sec Chloride (98-107) mmol/L Carbon Dioxide (22-30) mmol/L BUN (9-20) mg/dL Creatinine (0.66-1.25) mg/dL POC Glucose (mg/dL) 211 H 134 H (70-110) mg/dL Calcium (8.4-10.2) mg/dL Total Protein (6.3-8.2) g/dL Albumin (3.5-5.0) g/dL 08/09/22 08/09/22 Range/Units 06:03 06:03 RBC 2.59 L (4.30-5.90) m/uL Hgb 7.4 L (13.0-17.5) gm/dL Hct 22.9 L (39.0-53.0) % APTT (22.0-30.0) sec Chloride 97 L (98-107) mmol/L Carbon Dioxide 35 H (22-30) mmol/L BUN 59 H (9-20) mg/dL Creatinine 3.74 H (0.66-1.25) mg/dL POC Glucose (mg/dL) (70-110) mg/dL Calcium 7.9 L (8.4-10.2) mg/dL Total Protein 6.0 L (6.3-8.2) g/dL Albumin 2.6 L (3.5-5.0) g/dL
[2022-08-09 12:55] LABS: Free Kappa Lt Chain Qnt, Serum 15.37 mg/dL (0.33-1.94); Free Lambda Lt Chain Qnt, Seru 11.28 mg/dL (0.57-2.63)
[2022-08-09 13:49] LABS: Albumin 2.19 g/dL (3.80-4.90); Gamma Globulin 1.34 g/dL (0.70-1.50)
[2022-08-09 16:36] LABS: Glucose,Whole Blood 203 mg/dL (70-110)
[2022-08-09] MEDS: FUROSEMIDE 40 MG TAB PO SCH (16:57)
--- NOTE | 2022-08-09 17:43 | P.PN ---
Subjective Progress Note Date: 08/08/22 Principal diagnosis: C. diff colitis Patient is a 66-year-old male who was recently admitted to this hospital and treated with the Zosyn for possible pneumonia subsequent to presenting to the hospital with not feeling well and worsening diarrhea at the patient stood for C. diff subsequently came back positive. On today's evaluation that is 08/08/2022, the patient denies having any fever or any chills patient is currently breathing comfortably on nasal cannula oxygen. Denies having any chest pain and no worsening cough or sputum production no abdominal pain and diarrhea has slowed down Objective - Vital Signs Vital signs: Vital Signs Temp 97.7 F 08/08/22 03:15 Pulse 69 08/08/22 12:04 Resp 16 08/08/22 12:04 BP 119/58 08/08/22 12:04 Pulse Ox 98 08/08/22 12:04 FiO2 Intake & Output 08/07/22 08/08/22 08/08/22 18:59 06:59 18:59 Intake Total 109.461 238.161 118 Output Total 600 880 330 Balance -490.539 -641.839 -212 Weight 99 kg Intake: Intake, IV Titration 109.461 238.161 Amount Heparin Sod,Pork in 0.45% 109.461 238.161 NaCl 25,000 unit In 0.45 % NaCl 1 250ml.bag @ 18 UNITS/KG/HR 15.921 mls/hr IV .[id number] [facility] Rx#: [id number] Oral 118 Output: Urine 600 880 330 Other: Voiding Method Urinal Urinal # Voids 1 1 # Bowel Movements 2 - Exam GENERAL DESCRIPTION: An elderly male lying in bed in no distress RESPIRATORY SYSTEM: Unlabored breathing , decreased breath sounds at bases HEART: S1 S2 regular rate and rhythm , ABDOMEN: Soft , no tenderness EXTREMITIES: No edema feet - Labs CBC & Chem 7: 08/09/22 06:03 08/09/22 06:03 Labs: Abnormal Lab Results - Last 24 Hours (Table) 08/07/22 08/07/22 08/07/22 Range/Units 10:40 10:40 13:11 APTT (22.0-30.0) sec Carbon Dioxide (22-30) mmol/L BUN (9-20) mg/dL Creatinine (0.66-1.25) mg/dL Glucose (74-99) mg/dL POC Glucose (mg/dL) (70-110) mg/dL Calcium (8.4-10.2) mg/dL Iron 37 L (65-175) ug/dL % Saturation 13.91 L (15.00-50.00) Transferrin 189.0 L (204.0-354.0) mg/dL Ferritin 1287.0 H (22.0-322.0) ng/mL Total Protein (PEP) 6.1 L (6.2-8.2) g/dL Procalcitonin 0.35 H (0.02-0.09) ng/mL C. difficile (EIA) Intrp (Negative) 08/07/22 08/07/22 08/07/22 Range/Units 14:20 16:26 20:02 APTT (22.0-30.0) sec Carbon Dioxide (22-30) mmol/L BUN (9-20) mg/dL Creatinine (0.66-1.25) mg/dL Glucose (74-99) mg/dL POC Glucose (mg/dL) 150 H 166 H (70-110) mg/dL Calcium (8.4-10.2) mg/dL Iron (65-175) ug/dL % Saturation (15.00-50.00) Transferrin (204.0-354.0) mg/dL Ferritin (22.0-322.0) ng/mL Total Protein (PEP) (6.2-8.2) g/dL Procalcitonin (0.02-0.09) ng/mL C. difficile (EIA) Intrp Positive A (Negative) 08/08/22 08/08/22 08/08/22 Range/Units 06:11 07:43 07:43 APTT 62.4 H (22.0-30.0) sec Carbon Dioxide 37 H (22-30) mmol/L BUN 63 H (9-20) mg/dL Creatinine 3.48 H (0.66-1.25) mg/dL Glucose 56 L (74-99) mg/dL POC Glucose (mg/dL) 55 L (70-110) mg/dL Calcium 7.7 L (8.4-10.2) mg/dL Iron (65-175) ug/dL % Saturation (15.00-50.00) Transferrin (204.0-354.0) mg/dL Ferritin (22.0-322.0) ng/mL Total Protein (PEP) (6.2-8.2) g/dL Procalcitonin (0.02-0.09) ng/mL C. difficile (EIA) Intrp (Negative) 08/08/22 Range/Units 11:43 APTT (22.0-30.0) sec Carbon Dioxide (22-30) mmol/L BUN (9-20) mg/dL Creatinine (0.66-1.25) mg/dL Glucose (74-99) mg/dL POC Glucose (mg/dL) 150 H (70-110) mg/dL Calcium (8.4-10.2) mg/dL Iron (65-175) ug/dL % Saturation (15.00-50.00) Transferrin (204.0-354.0) mg/dL Ferritin (22.0-322.0) ng/mL Total Protein (PEP) (6.2-8.2) g/dL Procalcitonin (0.02-0.09) ng/mL C. difficile (EIA) Intrp (Negative) Assessment and Plan (1) C. difficile colitis Current Visit: Yes Status: Acute Code(s): A04.72 - ENTEROCOLITIS D/T CLOSTRIDIUM DIFFICILE, NOT SPCF RECUR SNOMED Code(s): 986451794 Plan: 1patient present to hospital with weakness this patient who did have a significant diarrhea with recent exposure to 2 antibiotics in the form of Zosyn for possible pneumonia likely representing symptomatic C. difficile colitis. 2patient to continue with vancomycin 125 mg p.o. every 6 hours and avoid antimotility agents.
--- NOTE | 2022-08-09 17:44 | P.PN ---
Subjective Progress Note Date: 08/09/22 Principal diagnosis: C. diff colitis Patient is a 66-year-old male who was recently admitted to this hospital and treated with the Zosyn for possible pneumonia subsequent to presenting to the hospital with not feeling well and worsening diarrhea at the patient stood for C. diff subsequently came back positive. On today's evaluation that is 08/09/2022, the patient remains to be afebrile, patient is breathing comfortably on nasal cannula oxygen, the patient denies hav ing any chest pain and no worsening cough or sputum production no abdominal pain and diarrhea has slowed down, no blood or mucus in the stool Objective - Vital Signs Vital signs: Vital Signs Temp 97.9 F 08/09/22 10:50 Pulse 66 08/09/22 10:50 Resp 18 08/09/22 10:50 BP 123/59 08/09/22 10:50 Pulse Ox 95 08/09/22 10:50 FiO2 Intake & Output 08/08/22 08/09/22 08/09/22 18:59 06:59 18:59 Intake Total 430.597 73.859 400.985 Output Total 330 Balance 100.597 73.859 400.985 Weight 95.5 kg Intake: Intake, IV Titration 194.597 73.859 160.985 Amount Heparin Sod,Pork in 0.45% 194.597 73.859 160.985 NaCl 25,000 unit In 0.45 % NaCl 1 250ml.bag @ 18 UNITS/KG/HR 15.921 mls/hr IV .[id number] [facility] Rx#: [id number] Oral 236 240 Output: Urine 330 Other: Voiding Method Urinal Urinal Urinal # Voids 1 - Exam GENERAL DESCRIPTION: An elderly male lying in bed in no distress RESPIRATORY SYSTEM: Unlabored breathing , decreased breath sounds at bases HEART: S1 S2 regular rate and rhythm , ABDOMEN: Soft , no tenderness EXTREMITIES: No edema feet - Labs CBC & Chem 7: 08/09/22 06:03 08/09/22 06:03 Labs: Abnormal Lab Results - Last 24 Hours (Table) 08/07/22 08/08/22 08/08/22 Range/Units 10:40 13:11 16:32 RBC (4.30-5.90) m/uL Hgb (13.0-17.5) gm/dL Hct (39.0-53.0) % APTT (22.0-30.0) sec Chloride (98-107) mmol/L Carbon Dioxide (22-30) mmol/L BUN (9-20) mg/dL Creatinine (0.66-1.25) mg/dL POC Glucose (mg/dL) 138 H 157 H (70-110) mg/dL Calcium (8.4-10.2) mg/dL Total Protein (6.3-8.2) g/dL Albumin (3.5-5.0) g/dL Free [place] LC, Quant 15.37 H (0.33-1.94) mg/dL Free Lambda LC, Quant 11.28 H (0.57-2.63) mg/dL 08/08/22 08/08/22 08/09/22 Range/Units 17:52 20:08 05:57 RBC (4.30-5.90) m/uL Hgb (13.0-17.5) gm/dL Hct (39.0-53.0) % APTT (22.0-30.0) sec Chloride (98-107) mmol/L Carbon Dioxide (22-30) mmol/L BUN (9-20) mg/dL Creatinine (0.66-1.25) mg/dL POC Glucose (mg/dL) 129 H 211 H 134 H (70-110) mg/dL Calcium (8.4-10.2) mg/dL Total Protein (6.3-8.2) g/dL Albumin (3.5-5.0) g/dL Free [place] LC, Quant (0.33-1.94) mg/dL Free Lambda LC, Quant (0.57-2.63) mg/dL 08/09/22 08/09/22 08/09/22 Range/Units 06:03 06:03 06:03 RBC 2.59 L (4.30-5.90) m/uL Hgb 7.4 L (13.0-17.5) gm/dL Hct 22.9 L (39.0-53.0) % APTT 74.1 H (22.0-30.0) sec Chloride 97 L (98-107) mmol/L Carbon Dioxide 35 H (22-30) mmol/L BUN 59 H (9-20) mg/dL Creatinine 3.74 H (0.66-1.25) mg/dL POC Glucose (mg/dL) (70-110) mg/dL Calcium 7.9 L (8.4-10.2) mg/dL Total Protein 6.0 L (6.3-8.2) g/dL Albumin 2.6 L (3.5-5.0) g/dL Free [place]ring LC, Quant (0.33-1.94) mg/dL Free Lambda LC, Quant (0.57-2.63) mg/dL Assessment and Plan (1) C. difficile colitis Current Visit: Yes Status: Acute Code(s): A04.72 - ENTEROCOLITIS D/T CL OSTRIDIUM DIFFICILE, NOT SPCF RECUR SNOMED Code(s): 219750221 Plan: 1patient present to hospital with weakness this patient who did have a significant diarrhea with recent exposure to 2 antibiotics in the form of Zosyn for possible pneumonia likely representing symptomatic C. difficile colitis. 2patient seemed to have shown clinical improvement and well continue with vancomycin 125 mg p.o. every 6 hours and avoid antimotility agents. Time with Patient: Less than 30
[2022-08-09] MEDS: TAMSULOSIN 0.4 MG CAP.ER.24H PO SCH (19:02)
[2022-08-09] MEDS: FUROSEMIDE 10 MG/ML 4 ML VIAL IV SCH (20:00)
[2022-08-09] MEDS: SODIUM CHLORIDE 0.9% 1,000 ML IV SCH (20:01)
[2022-08-09 20:27] LABS: Glucose,Whole Blood 138 mg/dL (70-110)
[2022-08-09] MEDS: INSULIN DETEMIR (LEVEMIR) 100 UNIT/ML SYR SQ SCH (20:41)
[2022-08-10 06:11] LABS: Glucose,Whole Blood 62 mg/dL (70-110)
[2022-08-10 06:31] LABS: Glucose,Whole Blood 69 mg/dL (70-110)
[2022-08-10] MEDS: INSULIN ASPART (NovoLOG) 100 UNIT/ML VIAL SQ SCH ×3 (06:32→17:17)
[2022-08-10] MEDS: PANTOPRAZOLE 40 MG TABLET PO SCH (06:34)
[2022-08-10] MEDS: LEVOTHYROXINE 125 MCG TAB PO SCH (06:34)
[2022-08-10 06:50] LABS: Glucose,Whole Blood 97 mg/dL (70-110)
[2022-08-10 08:53] LABS: Calcium 7.8 mg/dL (8.4-10.2); Magnesium 1.7 mg/dL (1.6-2.3); Potassium 4.3 mmol/L (3.5-5.1)
--- NOTE | 2022-08-10 09:29 | P.PN ---
Subjective Patient is seen in follow-up for acute kidney injury. Renal function is fairly stable. On oral Lasix. Has been voiding. Blood pressure stable. On 2 L nasal cannula. Oral intake fair. Vital signs are stable. General: Awake. No acute distress. HEENT: Head exam is unremarkable. On nasal cannula. LUNGS: Breath sounds decreased. HEART: Rate and Rhythm are regular. ABDOMEN: Soft, obese. EXTREMITITES: Bilateral BKA's noted. Objective - Vital Signs Vital signs: Vital Signs Temp 96.9 F L 08/10/22 08:14 Pulse 74 08/10/22 08:14 Resp 16 08/10/22 08:14 BP 140/62 08/10/22 08:14 Pulse Ox 95 08/10/22 08:14 FiO2 Intake & Output 08/09/22 08/10/22 08/10/22 18:59 06:59 18:59 Intake Total 640.985 820 Output Total 270 600 Balance 370.985 220 Weight 94.5 kg Intake: Intake, IV Titration 160.985 340 Amount Heparin Sod,Pork in 0.45% 160.985 NaCl 25,000 unit In 0.45 % NaCl 1 250ml.bag @ 18 UNITS/KG/HR 15.921 mls/hr IV .[id number] [facility] Rx#: [id number] Sodium Chloride 0.9% 1, 240 000 ml @ 20 mls/hr IV . Q24H [facility] Rx#:[id number] Sodium Ferric Gluconat- 100 Sucrose 125 mg In Sodium Chloride 0.9% 100 ml @ 100 mls/hr IVPB DAILY [facility] Rx#:[id number] Oral 480 480 Output: Urine 270 600 Other: Voiding Method Urinal Urinal # Bowel Movements 1 1 - Labs CBC & Chem 7: 08/09/22 06:03 08/10/22 07:59 Labs: Abnormal Lab Results - Last 24 Hours (Table) 08/07/22 08/09/22 08/09/22 Range/Units 10:40 16:35 20:25 Carbon Dioxide (22-30) mmol/L BUN (9-20) mg/dL Creatinine (0.66-1.25) mg/dL Glucose (74-99) mg/dL POC Glucose (mg/dL) 203 H 138 H (70-110) mg/dL Calcium (8.4-10.2) mg/dL Albumin (PEP) 2.19 L (3.80-4.90) g/dL [id number] 0.46 H (0.10-0.40) g/dL Free [place] LC, Quant 15.37 H (0.33-1.94) mg/dL Free Lambda LC, Quant 11.28 H (0.57-2.63) mg/dL 08/10/22 08/10/22 08/10/22 Range/Units 06:09 06:28 07:59 Carbon Dioxide 36 H (22-30) mmol/L BUN 59 H (9-20) mg/dL Creatinine 3.55 H (0.66-1.25) mg/dL Glucose 138 H (74-99) mg/dL POC Glucose (mg/dL) 62 L 69 L (70-110) mg/dL Calcium 7.8 L (8.4-10.2) mg/dL Albumin (PEP) (3.80-4.90) g/dL [id number]-[id number] (0.10-0.40) g/dL Free [place] LC, Quant (0.33-1.94) mg/dL Free Lambda LC, Quant (0.57-2.63) mg/dL Assessment and Plan Plan: Assessment: 1. Acute kidney injury secondary to ATN secondary to cardiorenal syndrome. Renal function has been improving since last admission and creatinine peaked at 5.9 on 07/27/2022. Renal function fairly stable - creatinine 3.55 today. Creatinine was near 1 in March 2021. UA from June 2022 showed protein, glucose. No hydronephrosis noted on kidney ultrasound. 2. Acute hypoxic respiratory failure secondary to volume overload. Improving. 3. Diabetes mellitus. 4. Status post bilateral below-knee medications. 5. History of coronary disease status post cardiac stenting and CABG. 6. Anemia. Iron deficiency noted. 7. Probable chronic kidney disease due to diabetic kidney disease. Need to establish baseline renal function. 8. Benign hypertension. Controlled. 9. Urinary retention on Flomax. Bladder scans have been negative. 10. C. diff colitis on oral vancomycin. 11. Acute on chronic diastolic CHF with mild to moderate tricuspid regurgitation. Plan: Maintain oral Lasix. 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 [place]/lambda ratio 1.35 this admission. No significant monoclonality noted on serum immunofixation. Maintain IV iron. Add Aranesp. Avoid nephrotoxins. Continue to monitor renal function and urine output. Hold amlodipine for systolic blood pressure less than 120.
[2022-08-10] MEDS ORDERED: DARBEPOETIN ALFA 40 MCG/0.4 ML SYRINGE SQ SCH (10:00)
[2022-08-10] MEDS: FOLIC ACID 1 MG TAB PO SCH (10:36)
[2022-08-10] MEDS: FENOFIBRATE 160 MG TAB PO SCH (10:36)
[2022-08-10] MEDS: FUROSEMIDE 40 MG TAB PO SCH (10:36)
[2022-08-10] MEDS: ASPIRIN 81 MG PO SCH (10:36)
[2022-08-10] MEDS: SODIUM FERRIC GLUCONAT-SUCROSE 125 MG in SODIUM CHLORIDE 0.9% 100 ML IVPB SCH (10:36)
[2022-08-10] MEDS: amLODIPine 5 MG TAB PO SCH (10:36)
[2022-08-10] MEDS: METOPROLOL TARTRATE 25 MG TAB PO SCH ×3 (10:37→21:04)
[2022-08-10] MEDS: ATORVASTATIN 40 MG TAB PO SCH (10:37)
[2022-08-10] MEDS: VANCOMYCIN 125 MG CAPSULE PO SCH ×4 (10:38→21:03)
[2022-08-10 12:03] LABS: Glucose,Whole Blood 180 mg/dL (70-110)
--- NOTE | 2022-08-10 13:59 | P.PN ---
Subjective This is a pleasant 66-year-old male past medical history significant for coronary artery disease status post CABG 2006 (WILD to LAD, SVG to obtuse marginal, SVG to RCA), ischemic cardiomyopathy with recovered ejection fraction and status post AICD placement , peripheral artery disease with bilateral occluded anterior tibial arteries in 2017, bilateral vascular wounds, type 2 diabetes,chronic kidney disease, neuropathy of upper and lower extremities. He followed in the office with Dr. Henderson, last follow up in 04/2021. We have bee tiana asked to see in consultation for shortness of breath. Patient was recently hospitalized from 07/20/20 with acute kidney injury, acute cholecystitis status post cholecystectomy on 07/18, pneumonia. He states that he was feeling well few days after his discharge. However Saturday morning he had symptoms of shortness of breath, felt "clammy", he noticed he had decreased oxygen saturations with a pulse ox at home. Also with symptoms of diarrhea. He states that he was unable to take his Lasix at home secondary to not being given at discharge and did not have Torsemide at home. He also was taken off his metoprolol and his losartan as well last admission. He feels that he has more fluid with increased edema, shortness of breath and weight gain. He denies any chest pain, lightheadedness, dizziness, palpitations, nausea, vomiting, abdominal pain. He denies any fever cough or chills. He was started on IV Lasix emergency department, he feels an improvement in his symptoms. 08/08/2022 Patient seen and examined at bedside, no acute distress. He endorses breathing has improved. He continues to have diarrhea. History was positive for C. difficile and was started on PO vancomycin. Overall his breathing has improved but not back to his baseline. Blood pressure 119/58, heart rate 69. Awaiting 2D echo 07/10 Patient seen and examined. Patient denies any chest pain or pressure. States his diarrhea is somewhat improving. Creatinine increasing up to 3.7 and therefore changed to oral Lasix by nephrology. Echocardiogram resulted with EF 55-60%, mild mitral regurgitation, [id number] tricuspid regurgitation 08/10 Patient seen and examined. Patient states overall he feels okay. Some discussion about going home with oxygen. Denies any chest pain or pressure. Still does have extensive edema up to his thigh. He was transitioned to oral Lasix and admits to very poor urine output with the oral Lasix PHYSICAL EXAMINATION CONSTITUTIONAL: No apparent distress. HEENT: Head is normocephalic. Neck Supple. No JVD. CHEST EXAMINATION: Lungs are crackles bases to auscultation. No chest wall tenderness is noted on palpation or with deep breathing. HEART EXAMINATION: Regular rate and rhythm. S1, S2 heard. Systolic murmur No gallops or rub. ABDOMEN: Soft, nontender. Positive bowel sounds. EXTREMITIES: +2 radial pulses bilaterally. +1-2 lower extremity edema at thighs NEUROLOGIC EXAMINATION: Patient is awake, alert and oriented x3. ASSESSMENT -Acute on chronic heart failure with preserved ejection fraction, recent admission not taking Torsemide at home, recent discontinuing of beta ilsa and ARB medications -Elevated troponin, type II [place] secondary to c diff, CKD -Diarrhea -C difficile -Recent cholecystectomy on 07/18/2022 -Recent admission to the hospital with acute kidney injury and pneumonia -Coronary artery disease status post 3 vessel CABG in 2006 -Ischemic cardiomyopathy with recovered ejection fraction and status post AICD placement -Peripheral artery disease with bilateral occluded anterior tibial arteries in 2017 -Bilateral vascular wounds -Type 2 Diabetes -Chronic Kidney Disease PLAN Echocardiogram reviewed with preserved EF without significant valvular disease. Still with extensive edema worse over the past 1 month. Trial of Bumex IV and monitor Cr. Significantly volume overloaded. Monitor I/Os, daily weights, renal function and electrolytes Continue aspirin, statin, amlodipine, beta ilsa at this time Maximize medical therapy as tolerated Further recommendations based on clinical course Objective - Vital Signs Vital signs: Vital Signs Temp 96.8 F L 08/10/22 13:02 Pulse 67 08/10/22 13:02 Resp 18 08/10/22 13:02 BP 124/57 08/10/22 13:02 Pulse Ox 94 L 08/10/22 13:02 FiO2 Intake & Output 08/09/22 08/10/22 08/10/22 18:59 06:59 18:59 Intake Total 640.985 820 Output Total 270 600 325 Balance 370.985 220 -325 Weight 94.5 kg Intake: Intake, IV Titration 160.985 340 Amount Heparin Sod,Pork in 0.45% 160.985 NaCl 25,000 unit In 0.45 % NaCl 1 250ml.bag @ 18 UNITS/KG/HR 15.921 mls/hr IV .[id number] [facility] Rx#: [id number] Sodium Chloride 0.9% 1, 240 000 ml @ 20 mls/hr IV . Q24H [facility] Rx#:[id number] Sodium Ferric Gluconat- 100 Sucrose 125 mg In Sodium Chloride 0.9% 100 ml @ 100 mls/hr IVPB DAILY [facility] Rx#:[id number] Oral 480 480 Output: Urine 270 600 325 Other: Voiding Method Urinal Urinal # Bowel Movements 1 1 - Labs CBC & Chem 7: 08/09/22 06:03 08/10/22 07:59 Labs: Abnormal Lab Results - Last 24 Hours (Table) 08/09/22 08/09/22 08/10/22 Range/Units 16:35 20:25 06:09 Carbon Dioxide (22-30) mmol/L BUN (9-20) mg/dL Creatinine (0.66-1.25) mg/dL Glucose (74-99) mg/dL POC Glucose (mg/dL) 203 H 138 H 62 L (70-110) mg/dL Calcium (8.4-10.2) mg/dL 08/10/22 08/10/22 08/10/22 Range/Units 06:28 07:59 12:00 Carbon Dioxide 36 H (22-30) mmol/L BUN 59 H (9-20) mg/dL Creatinine 3.55 H (0.66-1.25) mg/dL Glucose 138 H (74-99) mg/dL POC Glucose (mg/dL) 69 L 180 H (70-110) mg/dL Calcium 7.8 L (8.4-10.2) mg/dL
--- NOTE | 2022-08-10 14:30 | P.PN ---
Subjective Progress Note Date: 08/10/22 Principal diagnosis: Bilateral basilar atelectasis due to poor respiratory effort Bilateral small pleural effusion due to congestive heart failure suspect acute on chronic systolic heart failure Ischemic cardiomyopathy Recent left lower lobe pneumonia status post antibiotic therapy Acute cholecystitis status post recent cholecystectomy 08/10/2022, patient seen and evaluated examined remains on supplemental oxygen, patient desaturated room air, patient is currently undergoing maximal medical therapy for now heart failure cardiovascular services are following, Lasix is s witched to oral now 08/09/2022, patient seen eval examined during the rounds labs reviewed medicati ons reviewed care plan discussed, ongoing shortness of breath cough is mostly dry and nonproductive, denies any chest pain, chest x-ray performed today revealed bilateral infiltrate versus atelectasis and small effusion, and labs today reveal white cell count is 9.5 with hemoglobin hematocrit 7.4/22.9, patient remains on heparin with PTT of 74, BUN/creatinine is 59/3.74, overall stable, C. difficile toxin is positive, pro-calcitonin mildly elevated, ejection fraction on echocardiogram 55-60% with mild dilatation of right ventricle 08/08/2022, patient seen eval examined during the rounds labs reviewed medications reviewed care plan discussed, shortness of breath is present remains on supplemental oxygen denies any chest pain however, patient remains afebrile echocardiogram is pending, blood glucose running on the higher side last check was 210 Patient is a 66-year-old male well-known to me he is status post bilateral BKA, patient had left lower lobe pneumonia and acute cholecystitis with chronic kidney disease with acute onset was hospitalized later that those problems and discharge last week came back with problems of dizziness lightheadedness. He has significant cardiovascular disease status post a CABG 2006 history of cardiomyopathy ischemic in nature ejection fraction less than 30% status post AICD, peripheral arterial disease chronic kidney disease recent pneumonia status post cholecystectomy, patient was feeling cold and clammy has been short of breath oxygen saturation dropped down while decided to bring him into the hospital. Significant workup included a computed tomography scan of his chest is reviewed by basilar atelectasis along with effusion, EKG particular paced rhythm, VQ low probability for PE, white cell count is 11.7 creatinine is 2.3 BUN 62 BNP is 8570 d-dimer 3.7, patient has been admitted into the hospital with acute on chronic heart failure and type II [place] cardiovascular services following has been on dialysis and IV heparin along with continuation of antihypertensive aspirin and statins, Objective - Vital Signs Vital signs: Vital Signs Temp 96.8 F L 08/10/22 13:02 Pulse 67 08/10/22 13:02 Resp 18 08/10/22 13:02 BP 124/57 08/10/22 13:02 Pulse Ox 94 L 08/10/22 13:02 FiO2 Intake & Output 08/09/22 08/10/22 08/10/22 18:59 06:59 18:59 Intake Total 640.985 820 Output Total 270 600 325 Balance 370.985 220 -325 Weight 94.5 kg Intake: Intake, IV Titration 160.985 340 Amount Heparin Sod,Pork in 0.45% 160.985 NaCl 25,000 unit In 0.45 % NaCl 1 250ml.bag @ 18 UNITS/KG/HR 15.921 mls/hr IV .[id number] [facility] Rx#: [id number] Sodium Chloride 0.9% 1, 240 000 ml @ 20 mls/hr IV . Q24H [facility] Rx#:[id number] Sodium Ferric Gluconat- 100 Sucrose 125 mg In Sodium Chloride 0.9% 100 ml @ 100 mls/hr IVPB DAILY [facility] Rx#:[id number] Oral 480 480 Output: Urine 270 600 325 Other: Voiding Method Urinal Urinal # Bowel Movements 1 1 - Exam - Constitutional General appearance: average body habitus, cooperative, disheveled - EENT Eyes: EOMI, PERRLA ENT: normal oropharynx Ears: bilateral: normal - Neck Neck: lymphadenopathy Carotids: bilateral: upstroke normal Thyroid: bilateral: normal size - Respiratory Respiratory: bilateral: diminished - Cardiovascular Rhythm: regular Heart sounds: normal: S1, S2 - Gastrointestinal General gastrointestinal: normal bowel sounds, soft - Neurologic Neurologic: CNII-XII intact - Musculoskeletal Musculoskeletal: generalized weakness - Psychiatric Psychiatric: A&O x's 3, appropriate affect, intact judgment & insight - Labs CBC & Chem 7: 08/09/22 06:03 08/10/22 07:59 Labs: Abnormal Lab Results - Last 24 Hours (Table) 08/09/22 08/09/22 08/10/22 Range/Units 16:35 20:25 06:09 Carbon Dioxide (22-30) mmol/L BUN (9-20) mg/dL Creatinine (0.66-1.25) mg/dL Glucose (74-99) mg/dL POC Glucose (mg/dL) 203 H 138 H 62 L (70-110) mg/dL Calcium (8.4-10.2) mg/dL 08/10/22 08/10/22 08/10/22 Range/Units 06:28 07:59 12:00 Carbon Dioxide 36 H (22-30) mmol/L BUN 59 H (9-20) mg/dL Creatinine 3.55 H (0.66-1.25) mg/dL Glucose 138 H (74-99) mg/dL POC Glucose (mg/dL) 69 L 180 H (70-110) mg/dL Calcium 7.8 L (8.4-10.2) mg/dL Assessment and Plan Assessment: Acute on chronic hypoxic respiratory failure C. difficile colitis Bilateral basilar atelectasis due to poor respiratory effort Bilateral small pleural effusion due to congestive heart failure suspect acute on chronic diastolic heart failure Ischemic cardiomyopathy, ejection fraction on recent echo normalized to 35% Recent left lower lobe pneumonia status post antibiotic therapy Acute cholecystitis status post recent cholecystectomy Plan: Continue supplemental oxygen patient will require home oxygen likely Agree with cardiovascular workup as outlined above Continue gentle diuresis monitor and trend renal functions Deep breathing exercises incentive spirometry Continue oral vancomycin for C. difficile colitis Monitor observe off of antibiotics therapy as doubt pneumonia and also in light of active C. difficile colitis Time with Patient: Greater than 30
[2022-08-10] MEDS: BUMETANIDE 0.25 MG/ML 10 ML VIAL IV SCH (15:25)
[2022-08-10] MEDS: SODIUM CHLORIDE 0.9% 1,000 ML IV SCH (16:26)
[2022-08-10 16:59] LABS: Glucose,Whole Blood 118 mg/dL (70-110)
[2022-08-10] MEDS: TAMSULOSIN 0.4 MG CAP.ER.24H PO SCH (17:55)
[2022-08-10 20:08] LABS: Glucose,Whole Blood 110 mg/dL (70-110)
--- NOTE | 2022-08-10 20:33 | PN ---
PROGRESS NOTE SUBJECTIVE: The patient was admitted for congestive heart failure, acute on chronic heart failure with low ejection fraction, ischemic cardiomyopathy, recent lower lobe pneumonia, status post cholecystectomy, came in. He wears oxygen at home. He was unable to get oxygen at home. He was readmitted for this reason as well as his Lasix was prescribed on discharge last time. PHYSICAL EXAMINATION: VITAL SIGNS: Temp is 96.8, blood pressure 124/57, O2 of 94%, pulse 67, respiratory rate 12 to 14. CARDIOVASCULAR: S1, S2. LUNGS: Clear. Scattered rhonchi and wheeze. GI: Soft. He has status post cholecystectomy scars. HEMATOLOGIC: He has swelling in his upper thighs. EXTREMITIES: He has BKA bilaterally. LABORATORY DATA: His D-dimer is 3.7. BNP is 8570. Creatinine is improving to 2.3, white cells 11.7. He is better every day. ASSESSMENT: Status post cholecystitis, acute on chronic congestive heart failure with poor ejection fraction, acute on chronic anemia secondary to renal disease, acute on chronic hypoxemic respiratory failure, C diff colitis. His diarrhea has improved. We will taper Vancomycin as tolerated. Possibly go home. He will need home oxygen and Lasix at home. He should improve. Bilateral pleural effusion secondary to congestive heart failure, ischemic cardiomyopathy, recent left lower lobe pneumonia, status post gallbladder surgery. Prognosis is guarded. He will be okay if he has diuresis at home. He takes his medicines and he has home oxygen. MMODL / IJN: [id number] /
[2022-08-10] MEDS: INSULIN DETEMIR (LEVEMIR) 100 UNIT/ML SYR SQ SCH ×2 (21:04→21:05)
--- NOTE | 2022-08-10 21:05 | PN ---
PROGRESS NOTE Sepsis, UTI, present on admission. MMODL / IJN: [id number] /
[2022-08-11] MEDS: BUMETANIDE 0.25 MG/ML 10 ML VIAL IV SCH ×2 (03:56→14:54)
[2022-08-11] MEDS: PANTOPRAZOLE 40 MG TABLET PO SCH (06:34)
[2022-08-11] MEDS: LEVOTHYROXINE 125 MCG TAB PO SCH (06:34)
[2022-08-11] MEDS: INSULIN ASPART (NovoLOG) 100 UNIT/ML VIAL SQ SCH ×3 (07:00→17:12)
[2022-08-11 07:01] LABS: Glucose,Whole Blood 149 mg/dL (70-110)
[2022-08-11] MEDS: FOLIC ACID 1 MG TAB PO SCH (08:52)
[2022-08-11] MEDS: FENOFIBRATE 160 MG TAB PO SCH (08:52)
[2022-08-11] MEDS: amLODIPine 5 MG TAB PO SCH (08:52)
[2022-08-11] MEDS: SODIUM FERRIC GLUCONAT-SUCROSE 125 MG in SODIUM CHLORIDE 0.9% 100 ML IVPB SCH (08:52)
[2022-08-11] MEDS: VANCOMYCIN 125 MG CAPSULE PO SCH ×3 (08:53→20:41)
[2022-08-11] MEDS: ATORVASTATIN 40 MG TAB PO SCH (08:53)
[2022-08-11] MEDS: ASPIRIN 81 MG PO SCH (08:53)
[2022-08-11] MEDS: METOPROLOL TARTRATE 25 MG TAB PO SCH ×3 (08:53→20:41)
--- NOTE | 2022-08-11 09:15 | P.PN ---
Subjective Progress Note Date: 08/11/22 Principal diagnosis: Bilateral basilar atelectasis due to poor respiratory effort Bilateral small pleural effusion due to congestive heart failure suspect acute on chronic systolic heart failure Ischemic cardiomyopathy Recent left lower lobe pneumonia status post antibiotic therapy Acute cholecystitis status post recent cholecystectomy 08/11/2022, patient seen eval reexamined during the rounds overall respiratory status marginal still get short of breath on activity and exertion ongoing cough present mostly dry and nonproductive patient has been using oxygen more regul miryam, on 2 L oxygen saturation is 94% hemodynamic status stable patient remains afebrile with temperature 98, blood sugar is 149, medications reviewed patient has been continued on antihypertensive agents along with statins, has been on iron therapy as well, frequency of diarrhea is improved patient is still getting by mouth vancomycin 08/10/2022, patient seen and evaluated examined remains on supplemental oxygen, patient desaturated room air, patient is currently undergoing maximal medical therapy for now heart failure cardiovascular services are following, Lasix is switched to oral now 08/09/2022, patient seen eval examined during the rounds labs reviewed medications reviewed care plan discussed, ongoing shortness of breath cough is mostly dry and nonproductive, denies any chest pain, chest x-ray performed today revealed bilateral infiltrate versus atelectasis and small effusion, and labs today reveal white cell count is 9.5 with hemoglobin hematocrit 7.4/22.9, patient remains on heparin with PTT of 74, BUN/creatinine is 59/3.74, overall stable, C. difficile toxin is positive, pro-calcitonin mildly elevated, ejection fraction on echocardiogram 55-60% with mild dilatation of right ventricle 08/08/2022, patient seen eval examined during the rounds labs reviewed medications reviewed care plan discussed, shortness of breath is present remains on supplemental oxygen denies any chest pain however, patient remains afebrile echocardiogram is pending, blood glucose running on the higher side last check was 210 Patient is a 66-year-old male well-known to me he is status post bilateral BKA, patient had left lower lobe pneumonia and acute cholecystitis with chronic kidney disease with acute onset was hospitalized later that those problems and discharge last week came back with problems of dizziness lightheadedness. He has significant cardiovascular disease status post a CABG 2006 history of cardiomyopathy ischemic in nature ejection fraction less than 30% status post AICD, peripheral arterial disease chronic kidney disease recent pneumonia status post cholecystectomy, patient was feeling cold and clammy has been short of breath oxygen saturation dropped down while decided to bring him into the hospital. Significant workup included a computed tomography scan of his chest is reviewed by basilar atelectasis along with effusion, EKG particular paced rhythm, VQ low probability for PE, white cell count is 11.7 creatinine is 2.3 BUN 62 BNP is 8570 d-dimer 3.7, patient has been admitted into the hospital with acute on chronic heart failure and type II MS cardiovascular services following has been on dialysis and IV heparin along with continuation of antihypertensive aspirin and statins, Objective - Vital Signs Vital signs: Vital Signs Temp 97.9 F 08/11/22 08:43 Pulse 68 08/11/22 08:43 Resp 18 08/11/22 08:43 BP 130/60 08/11/22 08:43 Pulse Ox 94 L 08/11/22 08:43 FiO2 Intake & Output 08/10/22 08/11/22 08/11/22 18:59 06:59 18:59 Intake Total 960 Output Total 675 450 Balance 285 -450 Weight 82.5 kg Intake: Oral 960 Output: Urine 675 450 Other: Voiding Method Urinal Urinal - Exam - Constitutional General appearance: average body habitus, cooperative, disheveled - EENT Eyes: EOMI, PERRLA ENT: normal oropharynx Ears: bilateral: normal - Neck Neck: lymphadenopathy Carotids: bilateral: upstroke normal Thyroid: bilateral: normal size - Respiratory Respiratory: bilateral: diminished - Cardiovascular Rhythm: regular Heart sounds: normal: S1, S2 - Gastrointestinal General gastrointestinal: normal bowel sounds, soft - Neurologic Neurologic: CNII-XII intact - Musculoskeletal Musculoskeletal: generalized weakness - Psychiatric Psychiatric: A&O x's 3, appropriate affect, intact judgment & insight - Labs CBC & Chem 7: 08/09/22 06:03 08/10/22 07:59 Labs: Abnormal Lab Results - Last 24 Hours (Table) 08/10/22 08/10/22 08/11/22 Range/Units 12:00 16:48 06:59 POC Glucose (mg/dL) 180 H 118 H 149 H (70-110) mg/dL Assessment and Plan Assessment: Acute on chronic hypoxic respiratory failure C. difficile colitis Bilateral basilar atelectasis due to poor respiratory effort Bilateral small pleural effusion due to congestive heart failure suspect acute on chronic diastolic heart failure Ischemic cardiomyopathy, ejection fraction on recent echo normalized to 35% Recent left lower lobe pneumonia status post antibiotic therapy Acute cholecystitis status post recent cholecystectomy Plan: Continue supplemental oxygen patient will require home oxygen likely Agree with cardiovascular workup as outlined above along with gentle diuresis Continue gentle diuresis monitor and trend renal functions Deep breathing exercises incentive spirometry Continue oral vancomycin for C. difficile colitis Monitor observe off of antibiotics therapy as doubt pneumonia and also in light of active C. difficile colitis Time with Patient: Greater than 30
--- NOTE | 2022-08-11 10:08 | P.PN ---
Subjective Patient is seen in follow-up for acute kidney injury. Renal function is fairly stable. On oral Lasix. Has been voiding. Blood pressure stable. On 2 L nasal cannula. Oral intake fair. Serum creatinine at 3.5 today Diarrhea much improved. Objective - Vital Signs Vital signs: Vital Signs Temp 97.9 F 08/11/22 08:43 Pulse 68 08/11/22 08:43 Resp 18 08/11/22 08:43 BP 130/60 08/11/22 08:43 Pulse Ox 94 L 08/11/22 09:42 FiO2 Intake & Output 08/10/22 08/11/22 08/11/22 18:59 06:59 18:59 Intake Total 960 180 Output Total 675 450 350 Balance 285 -450 -170 Weight 82.5 kg Intake: Oral 960 180 Output: Urine 675 450 350 Other: Voiding Method Urinal Urinal - Exam Vital signs are stable. General: Awake. No acute distress. HEENT: Head exam is unremarkable. On nasal cannula. LUNGS: Breath sounds decreased. HEART: Rate and Rhythm are regular. ABDOMEN: Soft, obese. EXTREMITITES: Bilateral BKA's noted. - Labs CBC & Chem 7: 08/09/22 06:03 08/10/22 07:59 Labs: Abnormal Lab Results - Last 24 Hours (Table) 08/10/22 08/10/22 08/11/22 Range/Units 12:00 16:48 06:59 POC Glucose (mg/dL) 180 H 118 H 149 H (70-110) mg/dL Assessment and Plan Assessment: 1. Acute kidney injury secondary to ATN secondary to cardiorenal syndrome. Renal function has been improving since last admission and creatinine peaked at 5.9 on 07/27/2022. Renal function fairly stable - creatinine 3.55 on 08/10/2022. Creatinine was near 1 in March 2021. UA from June 2022 showed protein, glucose. No hydronephrosis noted on kidney ultrasound. 2. Acute hypoxic respiratory failure secondary to volume overload. Improving. 3. Diabetes mellitus. 4. Status post bilateral below-knee medications. 5. History of coronary disease status post cardiac stenting and CABG. 6. Anemia. Iron deficiency noted. 7. Probable chronic kidney disease due to diabetic kidney disease. Need to establish baseline renal function. 8. Benign hypertension. Controlled. 9. Urinary retention on Flomax. Bladder scans have been negative. 10. C. diff colitis on oral vancomycin. 11. Acute on chronic diastolic CHF with mild to moderate tricuspid regurgitation. Plan: Continue current dose of oral Lasix Monitor renal function over the weekend Follow-up as outpatient in 1-2 weeks'
[2022-08-11 11:46] LABS: Basophils # (A) 0.1 k/uL (0-0.2); Basophils % (A) 1 %; Eosinophils # (A) 0.5 k/uL (0-0.7); Eosinophils % (A) 6 %; HCT 23.8 % (39.0-53.0); HGB 7.7 gm/dL (13.0-17.5); Hypochromasia Moderate; Lymphocytes # (A) 1.1 k/uL (1.0-4.8); Lymphocytes % (A) 15 %; MCH 28.6 pg (25.0-35.0); MCHC 32.2 g/dL (31.0-37.0); MCV 88.7 fL (80.0-100.0); Mean Platelet Volume 7.7; Monocytes # (A) 0.7 k/uL (0-1.0); Monocytes % (A) 9 %; Neutrophils # (A) 4.9 k/uL (1.3-7.7); Neutrophils % (A) 68 %; Platelet Count 392 k/uL (150-450); RBC 2.69 m/uL (4.30-5.90); RDW 14.7 % (11.5-15.5); WBC 7.2 k/uL (3.8-10.6)
[2022-08-11 11:46] LABS: Glucose,Whole Blood 175 mg/dL (70-110)
[2022-08-11 12:18] LABS: Albumin 2.7 g/dL (3.5-5.0); Magnesium 1.8 mg/dL (1.6-2.3); Total Bilirubin 0.4 mg/dL (0.2-1.3)
--- NOTE | 2022-08-11 13:02 | P.PN ---
Subjective This is a pleasant 66-year-old male past medical history significant for coronary artery disease status post CABG 2006 (WILD to LAD, SVG to obtuse marginal, SVG to RCA), ischemic cardiomyopathy with recovered ejection fraction and status post AICD placement , peripheral artery disease with bilateral occluded anterior tibial arteries in 2017, bilateral vascular wounds, type 2 diabetes,chronic kidney disease, neuropathy of upper and lower extremities. He followed in the office with Dr. Henderson, last follow up in 04/2021. We have bee tiana asked to see in consultation for shortness of breath. Patient was recently hospitalized from 07/20/20 with acute kidney injury, acute cholecystitis status post cholecystectomy on 07/18, pneumonia. He states that he was feeling well few days after his discharge. However Saturday morning he had symptoms of shortness of breath, felt "clammy", he noticed he had decreased oxygen saturations with a pulse ox at home. Also with symptoms of diarrhea. He states that he was unable to take his Lasix at home secondary to not being given at discharge and did not have Torsemide at home. He also was taken off his metoprolol and his losartan as well last admission. He feels that he has more fluid with increased edema, shortness of breath and weight gain. He denies any chest pain, lightheadedness, dizziness, palpitations, nausea, vomiting, abdominal pain. He denies any fever cough or chills. He was started on IV Lasix emergency department, he feels an improvement in his symptoms. 08/08/2022 Patient seen and examined at bedside, no acute distress. He endorses breathing has improved. He continues to have diarrhea. History was positive for C. difficile and was started on PO vancomycin. Overall his breathing has improved but not back to his baseline. Blood pressure 119/58, heart rate 69. Awaiting 2D echo 07/10 Patient seen and examined. Patient denies any chest pain or pressure. States his diarrhea is somewhat improving. Creatinine increasing up to 3.7 and therefore changed to oral Lasix by nephrology. Echocardiogram resulted with EF 55-60%, mild mitral regurgitation, [id number] tricuspid regurgitation 08/10 Patient seen and examined. Patient states overall he feels okay. Some discussion about going home with oxygen. Denies any chest pain or pressure. Still does have extensive edema up to his thigh. He was transitioned to oral Lasix and admits to very poor urine output with the oral Lasix 08/11 Patient seen and examined. Hemoglobin 7.7, creatinine 3.6 which is near his baseline. Remains on Bumex 2 mg every 12 hours. Unclear accurate ins and outs PHYSICAL EXAMINATION CONSTITUTIONAL: No apparent distress. HEENT: Head is normocephalic. Neck Supple. No JVD. CHEST EXAMINATION: Lungs are crackles bases to auscultation. No chest wall tend erness is noted on palpation or with deep breathing. HEART EXAMINATION: Regular rate and rhythm. S1, S2 heard. Systolic murmur No gallops or rub. ABDOMEN: Soft, nontender. Positive bowel sounds. EXTREMITIES: +2 radial pulses bilaterally. +1-2 lower extremity edema at thighs NEUROLOGIC EXAMINATION: Patient is awake, alert and oriented x3. ASSESSMENT -Acute on chronic heart failure with preserved ejection fraction, recent admission not taking Torsemide at home, recent discontinuing of beta ilsa and ARB medications -Elevated troponin, type II MA secondary to c diff, CKD -Diarrhea -C difficile -Recent cholecystectomy on 07/18/2022 -Recent admission to the hospital with acute kidney injury and pneumonia -Coronary artery disease status post 3 vessel CABG in 2006 -Ischemic cardiomyopathy with recovered ejection fraction and status post AICD placement -Peripheral artery disease with bilateral occluded anterior tibial arteries in 2017 -Bilateral vascular wounds -Type 2 Diabetes -Chronic Kidney Disease PLAN Echocardiogram reviewed with preserved EF without significant valvular disease. Continue with Bumex IV for now. Likely DC next 24 - 48 hrs. Monitor I/Os, daily weights, renal function and electrolytes Continue aspirin, statin, amlodipine, beta ilsa at this time Maximize medical therapy as tolerated Further recommendations based on clinical course Objective - Vital Signs Vital signs: Vital Signs Temp 97.9 F 08/11/22 08:43 Pulse 68 08/11/22 08:43 Resp 18 08/11/22 08:43 BP 130/60 08/11/22 08:43 Pulse Ox 94 L 08/11/22 09:42 FiO2 Intake & Output 08/10/22 08/11/22 08/11/22 18:59 06:59 18:59 Intake Total 960 180 Output Total 675 450 600 Balance 285 -450 -420 Weight 82.5 kg Intake: Oral 960 180 Output: Urine 675 450 600 Other: Voiding Method Urinal Urinal Urinal - Labs CBC & Chem 7: 08/11/22 11:00 08/11/22 11:00 Labs: Abnormal Lab Results - Last 24 Hours (Table) 08/10/22 08/11/22 08/11/22 Range/Units 16:48 06:59 11:00 RBC (4.30-5.90) m/uL Hgb (13.0-17.5) gm/dL Hct (39.0-53.0) % Chloride 97 L (98-107) mmol/L Carbon Dioxide 39 H (22-30) mmol/L BUN 54 H (9-20) mg/dL Creatinine 3.61 H (0.66-1.25) mg/dL Glucose 139 H (74-99) mg/dL POC Glucose (mg/dL) 118 H 149 H (70-110) mg/dL Calcium 8.0 L (8.4-10.2) mg/dL Total Protein 6.0 L (6.3-8.2) g/dL Albumin 2.7 L (3.5-5.0) g/dL 08/11/22 08/11/22 Range/Units 11:00 11:44 RBC 2.69 L (4.30-5.90) m/uL Hgb 7.7 L (13.0-17.5) gm/dL Hct 23.8 L (39.0-53.0) % Chloride (98-107) mmol/L Carbon Dioxide (22-30) mmol/L BUN (9-20) mg/dL Creatinine (0.66-1.25) mg/dL Glucose (74-99) mg/dL POC Glucose (mg/dL) 175 H (70-110) mg/dL Calcium (8.4-10.2) mg/dL Total Protein (6.3-8.2) g/dL Albumin (3.5-5.0) g/dL
[2022-08-11 16:35] LABS: Glucose,Whole Blood 207 mg/dL (70-110)
[2022-08-11] MEDS: TAMSULOSIN 0.4 MG CAP.ER.24H PO SCH (17:12)
[2022-08-11] MEDS: SODIUM CHLORIDE 0.9% 1,000 ML IV SCH (17:13)
[2022-08-11 19:54] LABS: Glucose,Whole Blood 241 mg/dL (70-110)
[2022-08-11] MEDS: INSULIN DETEMIR (LEVEMIR) 100 UNIT/ML SYR SQ SCH (20:42)
[2022-08-12] MEDS: BUMETANIDE 0.25 MG/ML 10 ML VIAL IV SCH ×2 (00:12→12:58)
[2022-08-12] MEDS: LEVOTHYROXINE 125 MCG TAB PO SCH (06:22)
[2022-08-12] MEDS: PANTOPRAZOLE 40 MG TABLET PO SCH (06:23)
[2022-08-12] MEDS: INSULIN ASPART (NovoLOG) 100 UNIT/ML VIAL SQ SCH ×3 (06:57→17:37)
[2022-08-12 07:28] LABS: Glucose,Whole Blood 68 mg/dL (70-110)
[2022-08-12 07:28] LABS: Glucose,Whole Blood 56 mg/dL (70-110)
[2022-08-12 07:28] LABS: Glucose,Whole Blood 92 mg/dL (70-110)
[2022-08-12] MEDS: VANCOMYCIN 125 MG CAPSULE PO SCH ×3 (08:53→20:04)
[2022-08-12] MEDS: FENOFIBRATE 160 MG TAB PO SCH (08:53)
[2022-08-12] MEDS: METOPROLOL TARTRATE 25 MG TAB PO SCH ×3 (08:53→20:05)
[2022-08-12] MEDS: ATORVASTATIN 40 MG TAB PO SCH (08:53)
[2022-08-12] MEDS: FOLIC ACID 1 MG TAB PO SCH (08:53)
[2022-08-12] MEDS: amLODIPine 5 MG TAB PO SCH (08:53)
[2022-08-12] MEDS: ASPIRIN 81 MG PO SCH (08:53)
[2022-08-12 09:06] LABS: Basophils # (A) 0.1 k/uL (0-0.2); Basophils % (A) 1 %; Eosinophils # (A) 0.4 k/uL (0-0.7); Eosinophils % (A) 6 %; HGB 8.2 gm/dL (13.0-17.5); Hypochromasia Moderate; Lymphocytes # (A) 1.2 k/uL (1.0-4.8); Lymphocytes % (A) 16 %; MCH 27.8 pg (25.0-35.0); MCHC 31.5 g/dL (31.0-37.0); MCV 88.5 fL (80.0-100.0); Mean Platelet Volume 9.6; Monocytes # (A) 0.7 k/uL (0-1.0); Monocytes % (A) 9 %; Neutrophils # (A) 4.9 k/uL (1.3-7.7); Neutrophils % (A) 66 %; Platelet Count 394 k/uL (150-450); RBC 2.94 m/uL (4.30-5.90); WBC 7.4 k/uL (3.8-10.6)
[2022-08-12 09:25] LABS: Calcium 8.2 mg/dL (8.4-10.2); Potassium 4.4 mmol/L (3.5-5.1); Total Bilirubin 0.4 mg/dL (0.2-1.3); Total Protein 6.4 g/dL (6.3-8.2)
--- NOTE | 2022-08-12 09:58 | P.PN ---
Subjective Patient is seen in follow-up for acute kidney injury. Renal function is fairly stable. On oral Lasix. Has been voiding. Blood pressure stable. On 2 L nasal cannula. Oral intake fair. Serum creatinine at 3.0 today Diarrhea much improved. Objective - Vital Signs Vital signs: Vital Signs Temp 97.6 F 08/12/22 08:00 Pulse 64 08/12/22 08:00 Resp 18 08/12/22 08:00 BP 148/65 08/12/22 08:00 Pulse Ox 95 08/12/22 08:00 FiO2 Intake & Output 08/11/22 08/12/22 08/12/22 18:59 06:59 18:59 Intake Total 540 240 Output Total 925 350 Balance -385 -350 240 Weight 84.5 kg Intake: Oral 540 240 Output: Urine 925 350 Other: Voiding Method Urinal Urinal # Bowel Movements 2 - Exam Vital signs are stable. General: Awake. No acute distress. HEENT: Head exam is unremarkable. On nasal cannula. LUNGS: Breath sounds decreased. HEART: Rate and Rhythm are regular. ABDOMEN: Soft, obese. EXTREMITITES: Bilateral BKA's noted. - Labs CBC & Chem 7: 08/12/22 07:52 08/12/22 07:52 Labs: Abnormal Lab Results - Last 24 Hours (Table) 08/11/22 08/11/22 08/11/22 Range/Units 11:00 11:00 11:44 RBC 2.69 L (4.30-5.90) m/uL Hgb 7.7 L (13.0-17.5) gm/dL Hct 23.8 L (39.0-53.0) % Chloride 97 L (98-107) mmol/L Carbon Dioxide 39 H (22-30) mmol/L BUN 54 H (9-20) mg/dL Creatinine 3.61 H (0.66-1.25) mg/dL Glucose 139 H (74-99) mg/dL POC Glucose (mg/dL) 175 H (70-110) mg/dL Calcium 8.0 L (8.4-10.2) mg/dL Total Protein 6.0 L (6.3-8.2) g/dL Albumin 2.7 L (3.5-5.0) g/dL 08/11/22 08/11/22 08/12/22 Range/Units 16:34 19:53 06:55 RBC (4.30-5.90) m/uL Hgb (13.0-17.5) gm/dL Hct (39.0-53.0) % Chloride (98-107) mmol/L Carbon Dioxide (22-30) mmol/L BUN (9-20) mg/dL Creatinine (0.66-1.25) mg/dL Glucose (74-99) mg/dL POC Glucose (mg/dL) 207 H 241 H 56 L (70-110) mg/dL Calcium (8.4-10.2) mg/dL Total Protein (6.3-8.2) g/dL Albumin (3.5-5.0) g/dL 08/12/22 08/12/22 08/12/22 Range/Units 07:11 07:52 07:52 RBC 2.94 L (4.30-5.90) m/uL Hgb 8.2 L (13.0-17.5) gm/dL Hct 26.0 L (39.0-53.0) % Chloride 97 L (98-107) mmol/L Carbon Dioxide 35 H (22-30) mmol/L BUN 54 H (9-20) mg/dL Creatinine 3.05 H (0.66-1.25) mg/dL Glucose (74-99) mg/dL POC Glucose (mg/dL) 68 L (70-110) mg/dL Calcium 8.2 L (8.4-10.2) mg/dL Total Protein (6.3-8.2) g/dL Albumin 3.0 L (3.5-5.0) g/dL Assessment and Plan Assessment: 1. Acute kidney injury secondary to ATN secondary to cardiorenal syndrome. Renal function has been improving since last admission and creatinine peaked at 5.9 on 07/27/2022. Renal function fairly stable - creatinine 3.0 today. Creatinine was near 1 in March 2021. UA from June 2022 showed protein, glucose. No hydronephrosis noted on kidney ultrasound. 2. Acute hypoxic respiratory failure secondary to volume overload. Improving. 3. Diabetes mellitus. 4. Status post bilateral below-knee medications. 5. History of coronary disease status post cardiac stenting and CABG. 6. Anemia. Iron deficiency noted. 7. Probable chronic kidney disease due to diabetic kidney disease. Need to establish baseline renal function. 8. Benign hypertension. Controlled. 9. Urinary retention on Flomax. Bladder scans have been negative. 10. C. diff colitis on oral vancomycin. 11. Acute on chronic diastolic CHF with mild to moderate tricuspid regurgitation. Plan: Continue current dose of oral Lasix Monitor renal function over the weekend Follow-up as outpatient in 1-2 weeks'
[2022-08-12 11:54] LABS: Glucose,Whole Blood 70 mg/dL (70-110)
--- NOTE | 2022-08-12 12:16 | PN ---
PROGRESS NOTE SUBJECTIVE: Seen for acute kidney injury. Renal function is fairly stable. He is currently on IV Bumex on 2 L. Creatinine is 3.0, diarrhea is improving. OBJECTIVE: VITAL SIGNS: Blood pressure 148/65, temperature 97.6, pulse 64, and respiratory rate 18. CARDIOVASCULAR: S1, S2. LUNGS: Clear. GI: Soft. HEMATOLOGIC: He has pitting edema in his upper thighs. PSYCH: Fair mood and affect. SKIN: Intact. Hemoglobin is 8.2, white count 7.4, BUN is 34, creatinine is 3.05. Ultrasound is negative for kidney obstruction. ASSESSMENT AND PLAN: 1. Status post BKA. 2. Diabetes mellitus. 3. Hypoxic respiratory failure secondary to congestive heart failure with preserved ejection fraction. 4. Acute kidney injury secondary to ATN, cardiorenal, renal function is improving with IV Bumex. 5. Coronary artery disease, status post stenting. 6. Anemia, iron deficiency. 7. Chronic kidney disease. 8. Benign hypertension. 9. Flomax for urinary retention. 10.C diff colitis on vancomycin. Continue current dose of Bumex. 11.Monitor renal function, possibly discharge home in the next day or 2. MMODL / IJN: [id number] /
--- NOTE | 2022-08-12 15:09 | P.PN ---
Subjective This is a pleasant 66-year-old male past medical history significant for coronary artery disease status post CABG 2006 (WILD to LAD, SVG to obtuse marginal, SVG to RCA), ischemic cardiomyopathy with recovered ejection fraction and status post AICD placement , peripheral artery disease with bilateral occluded anterior tibial arteries in 2017, bilateral vascular wounds, type 2 diabetes,chronic kidney disease, neuropathy of upper and lower extremities. He followed in the office with Dr. Henderson, last follow up in 04/2021. We have bee tiana asked to see in consultation for shortness of breath. Patient was recently hospitalized from 07/20/20 with acute kidney injury, acute cholecystitis status post cholecystectomy on 07/18, pneumonia. He states that he was feeling well few days after his discharge. However Saturday morning he had symptoms of shortness of breath, felt "clammy", he noticed he had decreased oxygen saturations with a pulse ox at home. Also with symptoms of diarrhea. He states that he was unable to take his Lasix at home secondary to not being given at discharge and did not have Torsemide at home. He also was taken off his metoprolol and his losartan as well last admission. He feels that he has more fluid with increased edema, shortness of breath and weight gain. He denies any chest pain, lightheadedness, dizziness, palpitations, nausea, vomiting, abdominal pain. He denies any fever cough or chills. He was started on IV Lasix emergency department, he feels an improvement in his symptoms. 08/08/2022 Patient seen and examined at bedside, no acute distress. He endorses breathing has improved. He continues to have diarrhea. History was positive for C. difficile and was started on PO vancomycin. Overall his breathing has improved but not back to his baseline. Blood pressure 119/58, heart rate 69. Awaiting 2D echo 07/10 Patient seen and examined. Patient denies any chest pain or pressure. States his diarrhea is somewhat improving. Creatinine increasing up to 3.7 and therefore changed to oral Lasix by nephrology. Echocardiogram resulted with EF 55-60%, mild mitral regurgitation, [id number] tricuspid regurgitation 08/10 Patient seen and examined. Patient states overall he feels okay. Some discussion about going home with oxygen. Denies any chest pain or pressure. Still does have extensive edema up to his thigh. He was transitioned to oral Lasix and admits to very poor urine output with the oral Lasix 08/11 Patient seen and examined. Hemoglobin 7.7, creatinine 3.6 which is near his baseline. Remains on Bumex 2 mg every 12 hours. Unclear accurate ins and outs 08/12 Patient seen and examined. Hemoglobin 8.2 today. BUN 54, creatinine 3.0. He has been evaluated for home oxygen. PHYSICAL EXAMINATION CONSTITUTIONAL: No apparent distress. HEENT: Head is normocephalic. Neck Supple. No JVD. CHEST EXAMINATION: Lungs are crackles bases to auscultation. No chest wall tenderness is noted on palpation or with deep breathing. HEART EXAMINATION: Regular rate and rhythm. S1, S2 heard. Systolic murmur No gallops or rub. ABDOMEN: Soft, nontender. Positive bowel sounds. EXTREMITIES: +2 radial pulses bilaterally. +1-2 lower extremity edema at thighs NEUROLOGIC EXAMINATION: Patient is awake, alert and oriented x3. ASSESSMENT -Acute on chronic heart failure with preserved ejection fraction, recent admission not taking Torsemide at home, recent discontinuing of beta ilsa and ARB medications -Elevated troponin, type II MN secondary to c diff, CKD -Diarrhea -C difficile -Recent cholecystectomy on 07/18/2022 -Recent admission to the hospital with acute kidney injury and pneumonia -Coronary artery disease status post 3 vessel CABG in 2006 -Ischemic cardiomyopathy with recovered ejection fraction and status post AICD placement -Peripheral artery disease with bilateral occluded anterior tibial arteries in 2016 -Bilateral vascular wounds -Type 2 Diabetes -Chronic Kidney Disease PLAN Echocardiogram reviewed with preserved EF without significant valvular disease. Continue oral diuretics. Monitor I/Os, daily weights, renal function and electrolytes Continue aspirin, statin, amlodipine, beta ilsa at this time Maximize medical therapy as tolerated Further recommendations based on clinical course Objective - Vital Signs Vital signs: Vital Signs Temp 97.3 F L 08/12/22 12:00 Pulse 65 08/12/22 12:00 Resp 18 08/12/22 12:00 BP 135/61 08/12/22 12:00 Pulse Ox 95 08/12/22 12:00 FiO2 Intake & Output 08/11/22 08/12/22 08/12/22 18:59 06:59 18:59 Intake Total 540 480 Output Total 925 350 350 Balance -385 -350 130 Weight 84.5 kg Intake: Oral 540 480 Output: Urine 925 350 350 Other: Voiding Method Urinal Urinal Urinal # Bowel Movements 2 - Labs CBC & Chem 7: 08/12/22 07:52 08/12/22 07:52 Labs: Abnormal Lab Results - Last 24 Hours (Table) 08/11/22 08/11/22 08/12/22 Range/Units 16:34 19:53 06:55 RBC (4.30-5.90) m/uL Hgb (13.0-17.5) gm/dL Hct (39.0-53.0) % Chloride (98-107) mmol/L Carbon Dioxide (22-30) mmol/L BUN (9-20) mg/dL Creatinine (0.66-1.25) mg/dL POC Glucose (mg/dL) 207 H 241 H 56 L (70-110) mg/dL Calcium (8.4-10.2) mg/dL Albumin (3.5-5.0) g/dL 08/12/22 08/12/22 08/12/22 Range/Units 07:11 07:52 07:52 RBC 2.94 L (4.30-5.90) m/uL Hgb 8.2 L (13.0-17.5) gm/dL Hct 26.0 L (39.0-53.0) % Chloride 97 L (98-107) mmol/L Carbon Dioxide 35 H (22-30) mmol/L BUN 54 H (9-20) mg/dL Creatinine 3.05 H (0.66-1.25) mg/dL POC Glucose (mg/dL) 68 L (70-110) mg/dL Calcium 8.2 L (8.4-10.2) mg/dL Albumin 3.0 L (3.5-5.0) g/dL
[2022-08-12] MEDS: SODIUM CHLORIDE 0.9% 1,000 ML IV SCH (16:21)
[2022-08-12 16:57] LABS: Glucose,Whole Blood 126 mg/dL (70-110)
[2022-08-12] MEDS: TAMSULOSIN 0.4 MG CAP.ER.24H PO SCH (17:37)
[2022-08-12 20:03] LABS: Glucose,Whole Blood 180 mg/dL (70-110)
[2022-08-12] MEDS: INSULIN DETEMIR (LEVEMIR) 100 UNIT/ML SYR SQ SCH (20:07)
[2022-08-13] MEDS: BUMETANIDE 0.25 MG/ML 10 ML VIAL IV SCH (02:10)
[2022-08-13] MEDS: PANTOPRAZOLE 40 MG TABLET PO SCH (06:16)
[2022-08-13] MEDS: LEVOTHYROXINE 125 MCG TAB PO SCH (06:16)
[2022-08-13 06:20] LABS: Glucose,Whole Blood 54 mg/dL (70-110)
[2022-08-13] MEDS: INSULIN ASPART (NovoLOG) 100 UNIT/ML VIAL SQ SCH ×2 (06:22→12:04)
[2022-08-13 06:48] LABS: Glucose,Whole Blood 69 mg/dL (70-110)
[2022-08-13 06:55] LABS: Glucose,Whole Blood 105 mg/dL (70-110)
--- NOTE | 2022-08-13 08:30 | P.PN ---
Subjective Progress Note Date: 08/10/22 Principal diagnosis: C. diff colitis Patient is a 66-year-old male who was recently admitted to this hospital and treated with the Zosyn for possible pneumonia subsequent to presenting to the hospital with not feeling well and worsening diarrhea at the patient stood for C. diff subsequently came back positive. On today's evaluation that is 08/11/2022, the patient continues to be afebrile, patient is breathing comfortably on nasal cannula oxygen, the patient denies h aving any chest pain the patient did have occasional cough no significant sputum production no abdominal pain and diarrhea has slowed down Objective - Vital Signs Vital signs: Vital Signs Temp 96.8 F L 08/10/22 13:02 Pulse 67 08/10/22 13:02 Resp 18 08/10/22 13:02 BP 124/57 08/10/22 13:02 Pulse Ox 94 L 08/10/22 13:02 FiO2 Intake & Output 08/09/22 08/10/22 08/10/22 18:59 06:59 18:59 Intake Total 640.985 820 Output Total 270 600 325 Balance 370.985 220 -325 Weight 94.5 kg Intake: Intake, IV Titration 160.985 340 Amount Heparin Sod,Pork in 0.45% 160.985 NaCl 25,000 unit In 0.45 % NaCl 1 250ml.bag @ 18 UNITS/KG/HR 15.921 mls/hr IV .[id number] VICK Rx#: [id number] Sodium Chloride 0.9% 1, 240 000 ml @ 20 mls/hr IV . Q24H VICK Rx#:[id number] Sodium Ferric Gluconat- 100 Sucrose 125 mg In Sodium Chloride 0.9% 100 ml @ 100 mls/hr IVPB DAILY VICK Rx#:[id number] Oral 480 480 Output: Urine 270 600 325 Other: Voiding Method Urinal Urinal # Bowel Movements 1 1 - Exam GENERAL DESCRIPTION: An elderly male lying in bed in no distress RESPIRATORY SYSTEM: Unlabored breathing , decreased breath sounds at bases HEART: S1 S2 regular rate and rhythm , ABDOMEN: Soft , no tenderness EXTREMITIES: No edema feet - Labs CBC & Chem 7: 08/12/22 07:52 08/12/22 07:52 Labs: Abnormal Lab Results - Last 24 Hours (Table) 08/09/22 08/09/2222 Range/Units 16:35 20:25 06:09 Carbon Dioxide (22-30) mmol/L BUN (9-20) mg/dL Creatinine (0.66-1.25) mg/dL Glucose (74-99) mg/dL POC Glucose (mg/dL) 203 H 138 H 62 L (70-110) mg/dL Calcium (8.4-10.2) mg/dL 08/10/22 08/10/22 08/10/22 Range/Units 06:28 07:59 12:00 Carbon Dioxide 36 H (22-30) mmol/L BUN 59 H (9-20) mg/dL Creatinine 3.55 H (0.66-1.25) mg/dL Glucose 138 H (74-99) mg/dL POC Glucose (mg/dL) 69 L 180 H (70-110) mg/dL Calcium 7.8 L (8.4-10.2) mg/dL Assessment and Plan (1) C. difficile colitis Current Visit: Yes Status: Acute Code(s): A04.72 - ENTEROCOLITIS D/T CLOSTRIDIUM DIFFICILE, NOT SPCF RECUR SNOMED Code(s): 634193552 Plan: 1patient present to hospital with weakness this patient who did have a signific ant diarrhea with recent exposure to 2 antibiotics in the form of Zosyn for possible pneumonia likely representing symptomatic C. difficile colitis. 2patient has shown clinical improvement, the patient will continue with vancomycin 125 mg p.o. every 6 hours and Questran as needed. Time with Patient: Less than 30
--- NOTE | 2022-08-13 08:32 | P.PN ---
Subjective Progress Note Date: 08/11/22 Principal diagnosis: C. diff colitis Patient is a 66-year-old male who was recently admitted to this hospital and treated with the Zosyn for possible pneumonia subsequent to presenting to the hospital with not feeling well and worsening diarrhea at the patient stood for C. diff subsequently came back positive. On today's evaluation that is 08/11/2022, the patient denies any fever and chills, patient is breathing comfortably on nasal cannula oxygen, the patient denies having any chest pain the patient did have occasional cough no significant sputum production no abdominal pain and diarrhea has slowed down and stools are forming up Objective - Vital Signs Vital signs: Vital Signs Temp 97.9 F 08/11/22 12:00 Pulse 66 08/11/22 12:00 Resp 18 08/11/22 12:00 BP 141/67 08/11/22 12:00 Pulse Ox 94 L 08/11/22 12:00 FiO2 Intake & Output 08/10/22 08/11/22 08/11/22 18:59 06:59 18:59 Intake Total 960 360 Output Total 675 450 925 Balance 285 -450 -565 Weight 82.5 kg Intake: Oral 960 360 Output: Urine 675 450 925 Other: Voiding Method Urinal Urinal Urinal - Exam GENERAL DESCRIPTION: An elderly male lying in bed in no distress RESPIRATORY SYSTEM: Unlabored breathing , decreased breath sounds at bases HEART: S1 S2 regular rate and rhythm , ABDOMEN: Soft , no tenderness EXTREMITIES: No edema feet - Labs CBC & Chem 7: 08/12/22 07:52 08/12/22 07:52 Labs: Abnormal Lab Results - Last 24 Hours (Table) 08/10/22 08/11/22 08/11/22 Range/Units 16:48 06:59 11:00 RBC (4.30-5.90) m/uL Hgb (13.0-17.5) gm/dL Hct (39.0-53.0) % Chloride 97 L (98-107) mmol/L Carbon Dioxide 39 H (22-30) mmol/L BUN 54 H (9-20) mg/dL Creatinine 3.61 H (0.66-1.25) mg/dL Glucose 139 H (74-99) mg/dL POC Glucose (mg/dL) 118 H 149 H (70-110) mg/dL Calcium 8.0 L (8.4-10.2) mg/dL Total Protein 6.0 L (6.3-8.2) g/dL Albumin 2.7 L (3.5-5.0) g/dL 08/11/22 08/11/22 Range/Units 11:00 11:44 RBC 2.69 L (4.30-5.90) m/uL Hgb 7.7 L (13.0-17.5) gm/dL Hct 23.8 L (39.0-53.0) % Chloride (98-107) mmol/L Carbon Dioxide (22-30) mmol/L BUN (9-20) mg/dL Creatinine (0.66-1.25) mg/dL Glucose (74-99) mg/dL POC Glucose (mg/dL) 175 H (70-110) mg/dL Calcium (8.4-10.2) mg/dL Total Protein (6.3-8.2) g/dL Albumin (3.5-5.0) g/dL Assessment and Plan (1) C. difficile colitis Current Visit: Yes Status: Acute Code(s): A04.72 - ENTEROCOLITIS D/T CLOSTRIDIUM DIFFICILE, NOT SPCF RECUR SNOMED Code(s): 429547421 Plan: 1patient present to hospital with weakness this patient who did have a significant diarrhea with recent exposure to 2 antibiotics in the form of Zosyn for possible pneumonia likely representing symptomatic C. difficile colitis. 2patient has shown clinical improvement with improvement in his diarrhea, the patient will continue with vancomycin 125 mg p.o. every 6 hours to finish ten- day course of therapy Time with Patient: Less than 30
--- NOTE | 2022-08-13 08:33 | P.PN ---
Subjective Progress Note Date: 08/12/22 Principal diagnosis: C. diff colitis Patient is a 66-year-old male who was recently admitted to this hospital and treated with the Zosyn for possible pneumonia subsequent to presenting to the hospital with not feeling well and worsening diarrhea at the patient stood for C. diff subsequently came back positive. On today's evaluation that is 08/12/2022, the patient remains to be afebrile, patient is breathing comfortably on nasal cannula oxygen, the patient denies hav ing any chest pain the patient did have occasional dry cough the patient denies abdominal pain and diarrhea has resolved Objective - Vital Signs Vital signs: Vital Signs Temp 98.0 F 08/13/22 00:00 Pulse 67 08/13/22 04:00 Resp 19 08/13/22 04:00 BP 132/61 08/13/22 04:00 Pulse Ox 95 08/13/22 04:00 FiO2 Intake & Output 08/12/22 08/13/22 08/13/22 18:59 06:59 18:59 Intake Total 720 118 Output Total 350 300 Balance 370 -182 Weight 96 kg Intake: Oral 720 118 Output: Urine 350 300 Other: Voiding Method Urinal Urinal # Voids 2 # Bowel Movements 1 - Exam GENERAL DESCRIPTION: An elderly male lying in bed in no distress RESPIRATORY SYSTEM: Unlabored breathing , decreased breath sounds at bases HEART: S1 S2 regular rate and rhythm , ABDOMEN: Soft , no tenderness EXTREMITIES: No edema feet - Labs CBC & Chem 7: 08/12/22 07:52 08/12/22 07:52 Labs: Abnormal Lab Results - Last 24 Hours (Table) 08/12/22 08/12/22 08/12/22 Range/Units 07:52 07:52 16:46 RBC 2.94 L (4.30-5.90) m/uL Hgb 8.2 L (13.0-17.5) gm/dL Hct 26.0 L (39.0-53.0) % Chloride 97 L (98-107) mmol/L Carbon Dioxide 35 H (22-30) mmol/L BUN 54 H (9-20) mg/dL Creatinine 3.05 H (0.66-1.25) mg/dL POC Glucose (mg/dL) 126 H (70-110) mg/dL Calcium 8.2 L (8.4-10.2) mg/dL Albumin 3.0 L (3.5-5.0) g/dL 08/12/22 08/13/22 08/13/22 Range/Units 20:02 06:18 06:36 RBC (4.30-5.90) m/uL Hgb (13.0-17.5) gm/dL Hct (39.0-53.0) % Chloride (98-107) mmol/L Carbon Dioxide (22-30) mmol/L BUN (9-20) mg/dL Creatinine (0.66-1.25) mg/dL POC Glucose (mg/dL) 180 H 54 L 69 L (70-110) mg/dL Calcium (8.4-10.2) mg/dL Albumin (3.5-5.0) g/dL Assessment and Plan (1) C. difficile colitis Current Visit: Yes Status: Acute Code(s): A04.72 - ENTEROCOLITIS D/T CLOSTRIDIUM DIFFICILE, NOT SPCF RECUR SNOMED Code(s): 174437585 Plan: 1patient present to hospital with weakness this patient who did have a significant diarrhea with recent exposure to 2 antibiotics in the form of Zosyn for possible pneumonia likely representing symptomatic C. difficile colitis. 2patient has shown clinical improvement with resolution of his diarrhea, the patient will continue with vancomycin 125 mg p.o. every 6 hours to finish ten- day course of therapy and monitor clinical closely Time with Patient: Less than 30
[2022-08-13] MEDS ORDERED: ERGOCALCIFEROL 1,250 MCG (50,000 IU) CAPSULE PO SCH (09:00)
[2022-08-13] MEDS: SODIUM CHLORIDE 0.9% 1,000 ML IV SCH (09:27)
[2022-08-13] MEDS: VANCOMYCIN 125 MG CAPSULE PO SCH (09:27)
[2022-08-13] MEDS: amLODIPine 5 MG TAB PO SCH (09:27)
[2022-08-13] MEDS: FOLIC ACID 1 MG TAB PO SCH (09:27)
[2022-08-13] MEDS: FENOFIBRATE 160 MG TAB PO SCH (09:27)
[2022-08-13] MEDS: ASPIRIN 81 MG PO SCH (09:27)
[2022-08-13] MEDS: METOPROLOL TARTRATE 25 MG TAB PO SCH (09:27)
[2022-08-13] MEDS: ATORVASTATIN 40 MG TAB PO SCH (09:27)
[2022-08-13 09:45] VITALS: RESP 18
--- NOTE | 2022-08-13 10:04 | PN ---
PROGRESS NOTE DATE OF SERVICE: 08/11/2022 SUBJECTIVE: Cardiology started him on Bumex 1 mg q.12 hours for CHF, but not responsive to Lasix. I have him cut down on vancomycin to 125 mg t.i.d. as his diarrhea has improved, from q.i.d. to t.i.d. for his C diff. OBJECTIVE: GENERAL: He is in no acute distress. CARDIOVASCULAR: S1, S2. VITAL SIGNS: Reviewed. ABDOMEN: Soft, nontender. EXTREMITIES: BKA, pitting edema in the upper extremities and thigh area. SKIN: Intact. NEUROLOGIC: More alert, giving appropriate answers. ASSESSMENT AND PLAN: Acute on chronic heart failure with preserved ejection fraction. Acute kidney injury. Start beta ilsa, ARB medications, elevated troponin. Type 2 myocardial infarction secondary to C diff, chronic kidney disease, diarrhea, C diff, status post cholecystectomy, status post pneumonia, hospital-acquired pneumonia, coronary artery disease, ischemic cardiomyopathy with recovered ejection fraction, AICD, PAD, type 2 diabetes mellitus, chronic kidney disease. Echo reviewed, preserved ejection fraction without significant valvular disease. He is going to be on IV Bumex for another day or 2. Possibly discharge home. Continue aspirin, statin, amlodipine, beta blockers. Creatinine is improving, creatinine is down to 3.0 for 3.55. Continue current treatment. Please see further orders. MMODL / IJN: [id number] /
--- NOTE | 2022-08-13 11:42 | P.PN ---
Subjective Patient is seen in follow-up for acute kidney injury. Renal function is fairly stable. On oral Lasix. Has been voiding. Blood pressure stable. On 2 L nasal cannula. Oral intake fair. Serum creatinine at 3.0 yesterday Diarrhea much improved. No complaints today Objective - Vital Signs Vital signs: Vital Signs Temp 96.8 F L 08/13/22 09:25 Pulse 64 08/13/22 09:25 Resp 18 08/13/22 09:25 BP 123/60 08/13/22 09:25 Pulse Ox 95 08/13/22 09:25 FiO2 Intake & Output 08/12/22 08/13/22 08/13/22 18:59 06:59 18:59 Intake Total 720 118 Output Total 350 500 Balance 370 -382 Weight 96 kg Intake: Oral 720 118 Output: Urine 350 500 Other: Voiding Method Urinal Urinal Urinal # Voids 2 1 # Bowel Movements 1 1 - Exam Vital signs are stable. General: Awake. No acute distress. HEENT: Head exam is unremarkable. On nasal cannula. LUNGS: Breath sounds decreased. HEART: Rate and Rhythm are regular. ABDOMEN: Soft, obese. EXTREMITITES: Bilateral BKA's noted. - Labs CBC & Chem 7: 08/12/22 07:52 08/12/22 07:52 Labs: Abnormal Lab Results - Last 24 Hours (Table) 08/12/22 08/12/22 08/13/22 Range/Units 16:46 20:02 06:18 POC Glucose (mg/dL) 126 H 180 H 54 L (70-110) mg/dL 08/13/22 Range/Units 06:36 POC Glucose (mg/dL) 69 L (70-110) mg/dL Assessment and Plan Assessment: 1. Acute kidney injury secondary to ATN secondary to cardiorenal syndrome. Renal function has been improving since last admission and creatinine peaked at 5.9 on 07/27/2022. Renal function fairly stable - creatinine 3.0 yesterday. Creatinine was near 1 in March 2021. UA from June 2022 showed protein, glucose. No hydronephrosis noted on kidney ultrasound. 2. Acute hypoxic respiratory failure secondary to volume overload. Improving. 3. Diabetes mellitus. 4. Status post bilateral below-knee medications. 5. History of coronary disease status post cardiac stenting and CABG. 6. Anemia. Iron deficiency noted. 7. Probable chronic kidney disease due to diabetic kidney disease. Need to establish baseline renal function. 8. Benign hypertension. Controlled. 9. Urinary retention on Flomax. Bladder scans have been negative. 10. C. diff colitis on oral vancomycin. 11. Acute on chronic diastolic CHF with mild to moderate tricuspid regurgitation. Plan: Switch to oral diuretics Follow-up as outpatient in 1-2 weeks'
[2022-08-13 11:47] LABS: Glucose,Whole Blood 167 mg/dL (70-110)
[2022-08-13] MEDS ORDERED: TORSEMIDE 20 MG TAB PO SCH (12:00)
[2022-08-13 12:17] VITALS: BP 127/60; PULSE 62; TEMP 97.1
[2022-08-13 12:28] LABS: Potassium 4.7 mmol/L (3.5-5.1)
--- NOTE | 2022-08-13 13:56 | P.PN ---
Subjective Progress Note Date: 08/13/22 HISTORY OF PRESENT ILLNESS: This is a pleasant 66-year-old male past medical history significant for coronary artery disease status post CABG 2006 (WILD to LAD, SVG to obtuse marginal, SVG to RCA), ischemic cardiomyopathy with recovered ejection fraction and status post AICD placement , peripheral artery disease with bilateral occluded anterior tibial arteries in 2017, bilateral vascular wounds, type 2 diabetes,chronic kidney disease, neuropathy of upper and lower extremities. He followed in the office with Dr. Henderson, last follow up in 04/2021. We have been asked to see in consultation for shortness of breath. Patient was recently hospitalized from 07/20/20 with acute kidney injury, acute cholecystitis status post cholecystectomy on 07/18, pneumonia. He states that he was feeling well few days after his discharge. However Saturday morning he had symptoms of shortness of breath, felt "clammy", he noticed he had decreased oxygen saturations with a pulse ox at home. Also with symptoms of diarrhea. He states that he was unable to take his Lasix at home secondary to not being given at discharge and did not have Torsemide at home. He also was taken off his metoprolol and his losartan as well last admission. He feels that he has more fluid with increased edema, shortness of breath and weight gain. He denies any chest pain, lightheadedness, dizziness, palpitations, nausea, vomiting, abdominal pain. He denies any fever cough or chills. He was started on IV Lasix emergency department, he feels an improvement in his symptoms. 08/08/2022 Patient seen and examined at bedside, no acute distress. He endorses breathing has improved. He continues to have diarrhea. History was positive for C. difficile and was started on PO vancomycin. Overall his breathing has improved but not back to his baseline. Blood pressure 119/58, heart rate 69. Awaiting 2D echo 07/10 Patient seen and examined. Patient denies any chest pain or pressure. States his diarrhea is somewhat improving. Creatinine increasing up to 3.7 and therefore changed to oral Lasix by nephrology. Echocardiogram resulted with EF 55-60%, mild mitral regurgitation, [id number] tricuspid regurgitation 08/10 Patient seen and examined. Patient states overall he feels okay. Some discussion about going home with oxygen. Denies any chest pain or pressure. Still does have extensive edema up to his thigh. He was transitioned to oral Lasix and admits to very poor urine output with the oral Lasix 08/11 Patient seen and examined. Hemoglobin 7.7, creatinine 3.6 which is near his baseline. Remains on Bumex 2 mg every 12 hours. Unclear accurate ins and outs 08/12 Patient seen and examined. Hemoglobin 8.2 today. BUN 54, creatinine 3.0. He has been evaluated for home oxygen. 08/13/2022 Patient examined this morning at the bedside. Patient denies chest pain or pressure. He denies shortness of breath. He has been transitioned to oral Demadex per nephrology. He is hoping to be discharged home today. Vital signs are stable. PHYSICAL EXAM: VITAL SIGNS: Reviewed. GENERAL: Well-developed in no acute distress. NECK: Supple. No JVD or thyromegaly LUNGS: Respirations even and unlabored. Lungs essentially clear to auscultation bilaterally. HEART: Regular rate and rhythm. S1 and S2 heard. EXTREMITIES: Normal range of motion. No clubbing or cyanosis. Peripheral pulses intact. Bilateral amputations. ASSESSMENT: -Acute on chronic heart failure with preserved ejection fraction, recent admission not taking Torsemide at home, recent discontinuing of beta ilsa and ARB medications -Elevated troponin, type II OK secondary to c diff, CKD -Diarrhea -C difficile -Recent cholecystectomy on 07/18/2022 -Recent admission to the hospital with acute kidney injury and pneumonia -Coronary artery disease status post 3 vessel CABG in 2006 -Ischemic cardiomyopathy with recovered ejection fraction and status post AICD placement -Peripheral artery disease with bilateral occluded anterior tibial arteries in 2017 -Bilateral vascular wounds -Type 2 Diabetes -Chronic Kidney Disease PLAN: Continue current cardiac medications Patient is stable for discharge home today from a cardiac standpoint with close outpatient follow-up with Dr. Henderson Nurse practitioner note has been reviewed by physician. Signing provider agrees with the documented findings, assessment, and plan of care. Objective - Vital Signs Vital signs: Vital Signs Temp 97.1 F L 08/13/22 12:03 Pulse 62 08/13/22 12:03 Resp 18 08/13/22 12:03 BP 127/60 08/13/22 12:03 Pulse Ox 92 L 08/13/22 12:03 FiO2 Intake & Output 08/12/22 08/13/22 08/13/22 18:59 06:59 18:59 Intake Total 720 358 Output Total 350 770 Balance 370 -412 Weight 96 kg Intake: Oral 720 358 Output: Urine 350 770 Other: Voiding Method Urinal Urinal Urinal # Voids 2 1 # Bowel Movements 1 1 - Labs CBC & Chem 7: 08/12/22 07:52 08/13/22 11:38 Labs: Abnormal Lab Results - Last 24 Hours (Table) 08/12/22 08/12/22 08/13/22 Range/Units 16:46 20:02 06:18 Carbon Dioxide (22-30) mmol/L BUN (9-20) mg/dL Creatinine (0.66-1.25) mg/dL Glucose (74-99) mg/dL POC Glucose (mg/dL) 126 H 180 H 54 L (70-110) mg/dL Calcium (8.4-10.2) mg/dL 08/13/22 08/13/22 08/13/22 Range/Units 06:36 11:38 11:46 Carbon Dioxide 35 H (22-30) mmol/L BUN 49 H (9-20) mg/dL Creatinine 3.02 H (0.66-1.25) mg/dL Glucose 162 H (74-99) mg/dL POC Glucose (mg/dL) 69 L 167 H (70-110) mg/dL Calcium 8.0 L (8.4-10.2) mg/dL
== END 2022-08-13 15:58 | disposition home or self-care (01) | DRG 871 ==
LOC: EC 14:44 → 3SCARD 16:47
PROVIDERS: ADMIT Family Medicine; ATTEND Family Medicine
DX: A41.9 Sepsis, unspecified organism (principal); I21.A1 Myocardial infarction type 2; J96.21 Acute and chronic respiratory failure with hypoxia; N17.0 Acute kidney failure with tubular necrosis; I50.33 Acute on chronic diastolic (congestive) heart failure; I31.39 Other pericardial effusion (noninflammatory); A04.72 Enterocolitis due to Clostridium difficile, not specified as recurrent; I13.0 Hypertensive heart and chronic kidney disease with heart failure and stage 1 through stage 4 chronic kidney disease, or unspecified chronic kidney disease; L97.822 Non-pressure chronic ulcer of other part of left lower leg with fat layer exposed; Z68.41 Body mass index [BMI] 40.0-44.9, adult; N39.0 Urinary tract infection, site not specified; J98.11 Atelectasis; D63.1 Anemia in chronic kidney disease; E11.22 Type 2 diabetes mellitus with diabetic chronic kidney disease; I70.213 Atherosclerosis of native arteries of extremities with intermittent claudication, bilateral legs; E03.9 Hypothyroidism, unspecified; E66.9 Obesity, unspecified; D50.9 Iron deficiency anemia, unspecified; I27.20 Pulmonary hypertension, unspecified; I48.0 Paroxysmal atrial fibrillation; E86.0 Dehydration; I25.10 Atherosclerotic heart disease of native coronary artery without angina pectoris; I25.5 Ischemic cardiomyopathy; N18.30 Chronic kidney disease, stage 3 unspecified; I08.1 Rheumatic disorders of both mitral and tricuspid valves; E78.5 Hyperlipidemia, unspecified; H91.93 Unspecified hearing loss, bilateral; M19.042 Primary osteoarthritis, left hand; M19.041 Primary osteoarthritis, right hand; E11.51 Type 2 diabetes mellitus with diabetic peripheral angiopathy without gangrene; E11.42 Type 2 diabetes mellitus with diabetic polyneuropathy; E11.622 Type 2 diabetes mellitus with other skin ulcer; Z20.822 Contact with and (suspected) exposure to COVID-19; Z28.310 Unvaccinated for COVID-19; Z79.899 Other long term (current) drug therapy; Z79.4 Long term (current) use of insulin; Z79.890 Hormone replacement therapy; Z79.82 Long term (current) use of aspirin; Z87.01 Personal history of pneumonia (recurrent); Z87.891 Personal history of nicotine dependence; Z95.1 Presence of aortocoronary bypass graft; Z89.512 Acquired absence of left leg below knee; Z89.511 Acquired absence of right leg below knee; Z95.5 Presence of coronary angioplasty implant and graft; Z95.810 Presence of automatic (implantable) cardiac defibrillator; I25.2 Old myocardial infarction
CPT/HCPCS: 36415; 71045; 71046; 71250; 76770; 78582; 80048; 80053; 82728; 83540; 83550; 83605; 83735; 83880; 83883; 84145; 84165; 84484; 85025; 85379; 85610; 85730; 86334; 86335; 87324; 87502; 87635; 93005; 93306; 94760; 99285

== ENCOUNTER → 2022-09-06 | Outpatient (CLI) | payer MEDICARE ==
--- NOTE | 2022-09-07 09:29 | XR ---
EXAMINATION TYPE: XR knee complete LT DATE OF EXAM: 09/06/2022 COMPARISON: 05/03/2022 HISTORY: Nonhealing wound TECHNIQUE: 3 views submitted FINDINGS: Below the knee amputation noted with soft tissue defect likely related to soft tissue wound or ulcer. Surgical clips and vascular calcifications are seen. There is demineralization mineralizat ion of the distal margin of the remaining portion of the tibia. IMPRESSION: 1. Soft tissue edema and probable ulceration. Localized demineralization of the distal margin of the remaining tibia could be associated with osteomyelitis correlate with triple phase bone scan.
== END | disposition home or self-care (01) ==
LOC: RADXRMAIN 15:07
PROVIDERS: ATTEND Nurse Practitioner Family
DX: L97.922 Non-pressure chronic ulcer of unspecified part of left lower leg with fat layer exposed (principal); T87.89 Other complications of amputation stump; R60.0 Localized edema

== ENCOUNTER → 2023-08-28 | Outpatient (CLI) | payer MEDICARE ==
--- NOTE | 2023-08-28 14:45 | US ---
EXAMINATION TYPE: US extremity nonvasculr ltd LT DATE OF EXAM: 08/28/2023 COMPARISON: CT CLINICAL INDICATION: Male, 67 years old with history of T87.89 Stump complication; Pt states left low er leg amputation 2 years ago- has had non-healing wound near end of stump/ abnormal CT TECHNIQUE: Left leg at stump FINDINGS: Small fluid collection with tract to skin at area of non-healing wound left anterior leg at stump IMPRESSION: Small hypoattenuating area along the skin surface at the wound site in the region of the stump with no definitive drainable fluid collection or abscess identified. There does appear to be a small amount of fluid subcutaneously, however not definitively drainable at this time.
== END | disposition home or self-care (01) ==
LOC: RADUSWWP 14:08
PROVIDERS: ATTEND Family Medicine
DX: T87.89 Other complications of amputation stump (principal)

== ENCOUNTER → 2023-10-07 | Outpatient (CLI) | payer MEDICARE ==
[2023-10-07 13:52] LABS: African American GFR (CKD) 23 (>60 ml/min/1.73 sqM); Anion Gap 9 mmol/L; Blood Urea Nitrogen 56 mg/dL (9-20); Calcium 8.7 mg/dL (8.4-10.2); Carbon Dioxide 23 mmol/L (22-30); Chloride 105 mmol/L (98-107); Glucose 251 mg/dL (74-99); Non-African American GFR(CKD) 20 (>60 ml/min/1.73 sqM); Potassium 5.1 mmol/L (3.5-5.1); Sodium 137 mmol/L (137-145)
[2023-10-07 13:57] LABS: NT-Pro-B-Type Natriuretic Pept 984 pg/mL
== END | disposition home or self-care (01) ==
LOC: LABWHC1 12:04
PROVIDERS: ATTEND Internal Medicine
DX: I50.9 Heart failure, unspecified (principal)
CPT/HCPCS: 36415; 80048; 83880

== ENCOUNTER → 2023-12-19 | Outpatient (CLI) | payer MEDICARE ==
--- NOTE | 2023-12-19 14:39 | XR ---
EXAMINATION TYPE: XR knee complete LT DATE OF EXAM: 12/19/2023 COMPARISON: 09/06/2022 HISTORY: Distal wound TECHNIQUE: Three views are submitted. FINDINGS: Diffuse soft tissue edema with evidence of previous amputation. Generalized demineralization. Surgical clips are stable and there are vascular calcifications. There is localized demineralization of the distal margin of the tibia and fibula which is stable from prior exam. No overtly destructive changes. Previous arthritic changes stable. No acute fracture. Irregular along the distal medial margin of the soft tissues may reflect the soft tissue wound reported by history. IMPRESSION: 1. Soft tissue edema correlate for cellulitis. 2. No diagnostic evidence of osteomyelitis. If there is high clinical concern for osteomyelitis consi marietta triple phase bone scan.
== END | disposition home or self-care (01) ==
LOC: RADXRMAIN 13:02
PROVIDERS: ATTEND Surgery
DX: M79.662 Pain in left lower leg (principal); R60.0 Localized edema

== ENCOUNTER → 2024-01-03 | Outpatient (CLI) | payer MEDICARE ==
--- NOTE | 2024-01-03 13:30 | NM ---
EXAMINATION TYPE: NM bone 3 phase DATE OF EXAM: 01/03/2024 COMPARISON: NONE CLINICAL INDICATION: Male, 68 years old with history of L97.922 NON-PRS CHR ULC UNSP PRT OF L LOW LEG ; Triple phase bone scintigraphy was performed following the injection of 23.7 mCi Tc 99m MDP. Immedia te images and 3 hours post injection images acquired. FINDINGS: Mild uptake involving the left knee soft tissues medially on blood pool and flow images. Delayed imag ing does not demonstrate radiotracer attenuation in this region. There is no significant abnormal accumulation of radiotracer to suggest metastatic disease to the bon e or other significant abnormality. IMPRESSION: 1. No evidence for osteomyelitis. 2. Suspected cellulitis changes medial left knee.
== END | disposition home or self-care (01) ==
LOC: RADNMMAIN 07:24
PROVIDERS: ATTEND Nurse Practitioner Family
DX: E11.622 Type 2 diabetes mellitus with other skin ulcer (principal); L97.922 Non-pressure chronic ulcer of unspecified part of left lower leg with fat layer exposed; T87.89 Other complications of amputation stump
CPT/HCPCS: 78315; A9503

== ENCOUNTER → 2024-01-30 | Day surgery (SDC) | payer MEDICARE ==
[~2024-01-30] MED LIST changes: +LIDOCAINE 1% INJ 10MG/ML (20 ML MDV) ONE; +MIDAZOLAM 2 MG/2 ML VIAL ONE; +PROPOFOL 10 MG/ML 20 ML VIAL IV ONE; -SCOPOLAMINE 1.5MG/72HR PATCH TRANSDERM ONE; +ePHEDrine 50 MG/ML 1 ML VIAL ONE; +fentaNYL (PF) 50 MCG/ML 2 ML AMP ONE
[2024-01-30 11:08] LABS: HGB 10.5 gm/dL (13.0-17.5); MCH 28.3 pg (25.0-35.0); MCHC 31.8 g/dL (31.0-37.0); MCV 88.9 fL (80.0-100.0); Platelet Count 187 k/uL (150-450); RBC 3.71 m/uL (4.30-5.90); RDW 14.2 % (11.5-15.5); WBC 9.9 k/uL (3.8-10.6)
[2024-01-30] MEDS: LACTATED RINGERS 1,000 ML IV SCH (11:12)
[2024-01-30] MEDS: ONDANSETRON 4 MG/2 ML VIAL IVP ONE (11:26)
[2024-01-30] MEDS: DEXAMETHASONE SOD PHOSPHATE 4 MG/ML 1 ML VIAL IV ONE (11:57)
[2024-01-30] MEDS: INSULIN ASPART (NovoLOG) 100 UNIT/ML VIAL SQ ONE (11:58)
[2024-01-30 12:02] LABS: Glucose,Whole Blood 266 mg/dL (70-110)
--- NOTE | 2024-01-30 13:49 | P.OP ---
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 EBL: 10 cc IV fluids: See records Urine output: Not measured Drains: None Complications: None immediately apparent Condition: Stable to recovery Operative indication and findings: Patient is a 68-year-old male with previous left lower extremity amputation who has had a wound at the midportion of the previous incision that has intermittently opened and healed multiple times over through the past few years. He presented to my office for evaluation and upon further imaging there was not any evidence of osteomyelitis or bony infection therefore recommendation was made for excisional debridement of the tract itself with potential placement of skin substitute. He seemingly understands and is willing to proceed. Procedure in detail: Patient was brought to the operative suite and placed in supine position. The left lower extremity was prepped and draped in usual sterile fashion. A preprocedural timeout performed, all parties were in agreement. An incision was made surrounding the previous wound through the previous incision site. The wound itself tracked down to the level of the periosteal tissue. T there was no evidence of drainage or purulence. Here was a silk suture at this level with some evidence of epithelialized tissue. This area was sharply debrided with a curette. Hemostasis was achieved with electrocautery. The wound was then copiously irrigated. At the depth of the wound, a 4 x 4.5 cm piece of EpiFix was placed to allow for recruitment and improvement of healing. The deep tissues were reapproximated with interrupted sutures of 3-0 Vicryl. The skin was reapproximated with interrupted sutures of 2-0 nylon. Dressings were placed along with a compression wrap up the leg due to his edema. He tolerated the procedure well. Plan - Discharge Summary Discharge Rx Participant: No New Discharge Prescriptions: No Action Insulin Lispro [humaLOG Kwikpen] See Protocol SQ AC-TID PRN PRN Reason: hyperglycemia Metoprolol Tartrate 25 mg PO BID Atorvastatin [Lipitor] 40 mg PO DAILY Aspirin 81 mg PO DAILY 90 Days #90 chew Levothyroxine Sodium [Synthroid] 200 mcg PO DAILY Insulin Lispro [humaLOG Kwikpen] 5 unit SQ AC-TID amLODIPine [Norvasc] 5 mg PO DAILY #30 tab Cholecalciferol [Vitamin D3 (125 Mcg = 5000 Iu)] 250 mcg PO DAILY allopurinoL 100 mg PO DAILY Folic Acid 1 mg PO DAILY 90 Days #90 tab Insulin Glargine,Hum.rec.anlog [Toujeo Solostar] 25 units SQ HS Omeprazole 40 mg PO DAILY Torsemide [Demadex] 20 mg PO DAILY Losartan/Hydrochlorothiazide [Losartan-Hctz 50-12.5 mg Tab] 1 each PO DAILY Furosemide [Lasix] 40 mg PO DAILY Ferosul 325mg 325 mg PO DAILY Dulaglutide [Trulicity] 0.75 mg SQ TU Discharge Medication List Insulin Lispro [humaLOG Kwikpen] See Protocol SQ AC-TID PRN 03/31/14 [History] Atorvastatin [Lipitor] 40 mg PO DAILY 05/24/20 [History] Metoprolol Tartrate 25 mg PO BID 05/24/20 [History] Aspirin 81 mg PO DAILY 90 Days #90 chew 12/16/20 [Rx] Folic Acid 1 mg PO DAILY 90 Days #90 tab 12/27/20 [Rx] Insulin Glargine,Hum.rec.anlog [Toujeo Solostar] 25 units SQ HS 06/02/21 [History] Levothyroxine Sodium [Synthroid] 200 mcg PO DAILY 06/02/21 [History] Insulin Lispro [humaLOG Kwikpen] 5 unit SQ AC-TID 07/25/21 [History] Omeprazole 40 mg PO DAILY 07/18/22 [History] amLODIPine [Norvasc] 5 mg PO DAILY #30 tab 08/03/22 [Rx] Cholecalciferol [Vitamin D3 (125 Mcg = 5000 Iu)] 250 mcg PO DAILY 01/28/24 [History] Dulaglutide [Trulicity] 0.75 mg SQ TU 01/28/24 [History] Ferosul 325mg 325 mg PO DAILY 01/28/24 [History] Furosemide [Lasix] 40 mg PO DAILY 01/28/24 [History] Losartan/Hydrochlorothiazide [Losartan-Hctz 50-12.5 mg Tab] 1 each PO DAILY 01/28/24 [History] Torsemide [Demadex] 20 mg PO DAILY 01/28/24 [History] allopurinoL 100 mg PO DAILY 01/28/24 [History]
[2024-01-30 13:51] LABS: Glucose,Whole Blood 249 mg/dL (70-110)
[2024-01-30 14:12] LABS: African American GFR (CKD) 26 (>60 ml/min/1.73 sqM); Anion Gap 7 mmol/L; Blood Urea Nitrogen 50 mg/dL (9-20); Calcium 8.5 mg/dL (8.4-10.2); Carbon Dioxide 26 mmol/L (22-30); Chloride 103 mmol/L (98-107); Glucose 254 mg/dL (74-99); Non-African American GFR(CKD) 22 (>60 ml/min/1.73 sqM); Potassium 4.7 mmol/L (3.5-5.1); Sodium 136 mmol/L (137-145)
[2024-01-30 14:34] VITALS: TEMP 97
[2024-01-30 14:35] LABS: Glucose,Whole Blood 258 mg/dL (70-110)
[2024-01-30 14:36] VITALS: RESP 20
[2024-01-30 15:18] VITALS: BP 124/75; PULSE 72
== END ==
LOC: EC 10:26 → UNDOADMIN 10:26 → 2ORMAIN 10:26 → EC 11:05 → EDSTATUS 12:00 → UNDODISIN 15:24
PROVIDERS: ATTEND Surgery
DX: S81.802A Unspecified open wound, left lower leg, initial encounter (principal); Z89.512 Acquired absence of left leg below knee; X58.XXXA Exposure to other specified factors, initial encounter
CPT/HCPCS: 80048; 85027; 11043; J2250; J1100; J0690; J2405; J2001; J3010; J2704

== ENCOUNTER 2024-03-06 12:41 | Observation (INO) | payer MEDICARE ==
--- NOTE | 2024-03-06 13:48 | ED ---
General Adult HPI - General Source: patient, RN notes reviewed, old records reviewed Mode of arrival: wheelchair Limitations: no limitations <Miguel Barbosa - Last Filed: 03/06/24 14:55> <Miguel Sherwood - Last Filed: 03/06/24 19:13> - General Chief complaint: Recheck/Abnormal Lab/Rx Stated complaint: Dehydrated Time Seen by Provider: 03/06/24 13:35 - History of Present Illness Initial comments: This is a 68-year-old male who presents to the emergency department stating that he has had a history of C. difficile. Patient states he has had a wound on his leg since his amputation and he states it was opened in September but it got much worse with some tunneling effect and so he had another surgery about a month ago and he states that wound is not getting any better. Patient states he is also been on antibiotics about a month and a half ago. Patient states he has now had diarrhea constantly and he thinks he might have C. difficile. Patient had outpatient lab work done and he was having acute renal failure as well as dehydration and his doctor Vannesa wanted him to be admitted to the hospital patient denies any abdominal pain. Patient is chest pain difficulty breathing or shortness of breath. Patient has any fever chills (Miguel Barbosa) - Related Data Home Medications Medication Instructions Recorded Confirmed Atorvastatin [Lipitor] 40 mg PO DAILY 05/24/20 03/06/24 Metoprolol Tartrate 25 mg PO BID 05/24/20 03/06/24 Insulin Glargine,Hum.rec.anlog 30 units SQ HS 06/02/21 03/06/24 [Toujeo Solostar] Levothyroxine Sodium [Synthroid] 200 mcg PO DAILY 06/02/21 03/06/24 Cholecalciferol [Vitamin D3 (125 250 mcg PO DAILY 01/28/24 03/06/24 Mcg = 5000 Iu)] Dulaglutide [Trulicity] 0.75 mg SQ Q7D 01/28/24 03/06/24 Furosemide [Lasix] 40 mg PO DAILY 01/28/24 03/06/24 Losartan/Hydrochlorothiazide 1 tab PO DAILY 01/28/24 03/06/24 [Losartan-Hctz 50-12.5 mg Tab] allopurinoL 100 mg PO DAILY 01/28/24 03/06/24 Ferrous Sulfate [Feosol] 325 mg PO DAILY 03/06/24 03/06/24 Insulin Aspart [NovoLOG Flexpen] See Protocol SQ AC-TID PRN 03/06/24 03/06/24 Insulin Aspart [NovoLOG Flexpen] See Protocol SQ HS 03/06/24 03/06/24 Levothyroxine Sodium [Synthroid] 50 mcg PO DAILY 03/06/24 03/06/24 Tamsulosin [Flomax] 0.4 mg PO DAILY 03/06/24 03/06/24 Previous Rx's Medication Instructions Recorded Aspirin 81 mg PO DAILY 90 Days #90 chew 12/16/20 Folic Acid 1 mg PO DAILY 90 Days #90 tab 12/27/20 Allergies Allergy/AdvReac Type Severity Reaction Status Date / Time empagliflozin AdvReac Nausea & Verified 03/06/24 16:27 [From Jardiance] Vomiting & Diarrhea, gas/bloating iodine AdvReac kidney Verified 03/06/24 16:27 issue Review of Systems ROS Other: All systems not noted in ROS Statement are negative. <Miguel Barbosa - Last Filed: 03/06/24 14:55> ROS Other: All systems not noted in ROS Statement are negative. <Miguel Sherwood - Last Filed: 03/06/24 19:13> ROS Statement: Those systems with pertinent positive or pertinent negative responses have been documented in the HPI. Past Medical History Past Medical History: Heart Failure, COPD, Diabetes Mellitus, Diabetes Mellitus, GERD/Reflux, Hearing Disorder / Deafness, Hyperlipidemia, Hypertension, Myocardial Infarction (RI), Osteoarthritis (OA), Renal Disease, Skin Disorder, Thyroid Disorder Additional Past Medical History / Comment(s): IDDM type II, neuropathy bilateral hands/forearms/legs, WCC pt, bilateral leg edema, [place]. ischemic cardiomyopathy/AICD, vtach, past medical record documents paroxysmal Afib/pt does not recall this, bilateral lower leg intermittent claudication/PAD, chronic renal disease stage III, hx anemia-transfusion in December per pt., bilateral tinnitis/[place], hypothyroidchronic , arthritis bilateral hands with R hand worse, non healing wound to left stump. wears 2 L 02 at night. Last Myocardial Infarction Date:: 2006 History of Any Multi-Drug Resistant Organisms: None Reported Date of last positivie culture/infection: 12/24/23 MDRO Source:: Left Leg Past Surgical History: AICD, Cholecystectomy, Coronary Bypass/CABG, Heart Catheterization, Heart Catheterization With Stent, Pacemaker Additional Past Surgical History / Comment(s): PCI with one stent 1998, 2006 CABG 3 vessel and AICD, DFTs, aortagram with runoff, colonoscopy, bilateral cataract removals/lens implants, multiple debridements of wounds, [place] bka, lap choley 07/23/2210/24/22 Past Anesthesia/Blood Transfusion Reactions: No Reported Reaction Additional Past Anesthesia/Blood Transfusion Reaction / Comment(s): has received blood for anemia without issue Date of Last Stent Placement:: 1998 Type of Cardiac Device: Permanent Pacemaker, AICD Device Placement Date:: 2006 Past Psychological History: No Psychological Hx Reported Smoking Status: Former smoker Past Alcohol Use History: Occasional Past Drug Use History: None Reported - Past Family History Sister(s) Family Medical History: COPD, Hypertension Additional Family Medical History / Comment(s): Pt has a sister with COPD, another sister with diabetes/copd/htn and another sister with diabetes. Father Family Medical History: Myocardial Infarction (RI) Additional Family Medical History / Comment(s): Father of a RI at the age of 75 yrs. Brother(s) Family Medical History: CVA/TIA Additional Family Medical History / Comment(s): other brother RI Mother Family Medical History: Diabetes Mellitus, Renal Disease Additional Family Medical History / Comment(s): Mother at age 62 from renal failure <Miguel Barbosa - Last Filed: 03/06/24 14:55> General Exam Limitations: no limitations <Miguel Barbosa - Last Filed: 03/06/24 14:55> General appearance: alert, in no apparent distress Head exam: Present: atraumatic, normocephalic, normal inspection Eye exam: Present: normal appearance, PERRL, EOMI. Absent: scleral icterus, conjunctival injection, periorbital swelling ENT exam: Present: normal exam, mucous membranes moist Neck exam: Present: normal inspection. Absent: tenderness, meningismus, lymphadenopathy Respiratory exam: Present: normal lung sounds bilaterally. Absent: respiratory distress, wheezes, rales, rhonchi, stridor Cardiovascular Exam: Present: regular rate, normal rhythm, normal heart sounds. Absent: systolic murmur, diastolic murmur, rubs, gallop, clicks GI/Abdominal exam: Present: soft, normal bowel sounds. Absent: distended, tenderness, guarding, rebound, rigid Extremities exam: Present: normal inspection, full ROM, normal capillary refill. Absent: tenderness, pedal edema, joint swelling, calf tenderness Back exam: Present: normal inspection Neurological exam: Present: alert, oriented X3, CN II-XII intact Psychiatric exam: Present: normal affect, normal mood Skin exam: Present: warm, dry, intact, normal color. Absent: rash <Miguel Sherwood - Last Filed: 03/06/24 19:13> - General Exam Comments Initial Comments: GENERAL: Patient is well-developed and well-nourished. Patient is nontoxic and well- hydrated and is in mild distress. ENT: Neck is soft and supple. No significant lymphadenopathy is noted. Oropharynx is clear. Moist mucous membranes. Neck has full range of motion without eliciting any pain. EYES: The sclera were anicteric and conjunctiva were pink and moist. Extraocular movements were intact and pupils were equal round and reactive to light. Eyelids were unremarkable. PULMONARY: Unlabored respirations. Good breath sounds bilaterally. No audible rales rhonchi or wheezing was noted. CARDIOVASCULAR: There is a regular rate and rhythm without any murmurs gallops or rubs. ABDOMEN: Soft and nontender with normal bowel sounds. SKIN: Skin is clear with no lesions or rashes and otherwise unremarkable. NEUROLOGIC: Patient is alert and oriented x3. Cranial nerves II through XII are grossly intact. Motor and sensory are also intact. Normal speech, volume and content. Symmetrical smile. MUSCULOSKELETAL: Normal extremities with adequate strength and full range of motion. No lower extremity swelling or edema. No calf tenderness. LYMPHATICS: No significant lymphadenopathy is noted PSYCHIATRIC: Normal psychiatric evaluation. (Miguel Barbosa) Course <Miguel Sherwood - Last Filed: 03/06/24 19:13> Vital Signs 03/06/24 03/06/24 03/06/24 12:45 14:05 15:51 Temperature 98.1 F 97.6 F 97.9 F Pulse Rate 66 63 65 Respiratory 18 16 18 Rate Blood Pressure 117/67 136/62 100/75 O2 Sat by Pulse 99 100 96 Oximetry 03/06/24 03/06/24 17:46 18:48 Temperature 97.7 F 97.6 F Pulse Rate 61 63 Respiratory 15 17 Rate Blood Pressure 113/91 130/75 O2 Sat by Pulse 97 96 Oximetry - Reevaluation(s) Reevaluation #1: 03/06/24 19:12 Medical records reviewed (Miguel Sherwood) Reevaluation #2: 03/06/24 19:12 Symptoms relatively unchanged no C. difficile sample (Miguel Sherwood) Reevaluation #3: 03/06/24 19:13 Patient informed of results and questions answered (Miguel Sherwood) - Consultations Consultation #1: Spoke with Dr. Granado who agrees to admit this patient (Miguel Sherwood) Medical Decision Making - Lab Data Result diagrams: 03/06/24 14:12 03/06/24 14:12 <Miguel Barbosa - Last Filed: 03/06/24 14:55> - Lab Data Result diagrams: 03/06/24 14:12 03/06/24 14:12 <Miguel hSerwood - Last Filed: 03/06/24 19:13> - Medical Decision Making Was pt. sent in by a medical professional or institution (, PA, CERTIFIED PHARMACY TECHNICIAN, urgent care, hospital, or longterm...) When possible be specific @ -Dr. Granado sent the patient in to be evaluated in the emergency department and to be admitted Did you speak to anyone other than the patient for history (EMS, parent, family, police, friend...)? What history was obtained from this source @ -No Did you review nursing and triage notes (agree or disagree)? Why? @ -I reviewed and agree with nursing and triage notes Were old charts reviewed (outside hosp., previous admission, EMS record, old EKG, old radiological studies, urgent care reports/EKG's, longterm records)? Report findings @ -No old charts were reviewed Differential Diagnosis (chest pain, altered mental status, abdominal pain women, abdominal pain men, vaginal bleeding, weakness, fever, dyspnea, syncope, headache, dizziness, GI bleed, back pain, seizure, CVA, palpatations, mental health, musculoskeletal)? @ -Viral diarrhea, C. difficile, urinary tract infection, electrolyte abnormality, kidney failure, dehydration, this is not an all-inclusive list EKG interpreted by me (3pts min.). @ -As above X-rays interpreted by me (1pt min.). @ -None done CT interpreted by me (1pt min.). @ -None done U/S interpreted by me (1pt. min.). @ -None done What testing was considered but not performed or refused? (CT, X-rays, U/S, labs)? Why? @ -None What meds were considered but not given or refused? Why? @ -None Did you discuss the management of the patient with other professionals (professionals i.e. DrDeacon, PA, CERTIFIED PHARMACY TECHNICIAN, lab, RT, psych nurse, social services coordinator, activity specialist, teacher, public health service officer, case monitor)? Give summary @ -No Was smoking cessation discussed for >3mins.? @ -No Was critical care preformed (if so, how long)? @ -No Were there social determinants of health that impacted care today? How? (Homelessness, low income, unemployed, alcoholism, drug addiction, transportation, low edu. Level, literacy, decrease access to med. care, long term, rehab)? @ -No Was there de-escalation of care discussed even if they declined (Discuss DNR or withdrawal of care, Hospice)? DNR status @ -No What co-morbidities impacted this encounter? (DM, HTN, Smoking, COPD, CAD, Cancer, CVA, ARF, Chemo, Hep., AIDS, mental health diagnosis, sleep apnea, morbid obesity)? @ -None Was patient admitted / discharged? Hospital course, mention meds given and route, prescriptions, significant lab abnormalities, going to OR and other pertinent info. @ -Lab work was not completed by the time I shift ended I signed the patient out to Dr. Sherwood he will take over the care of the patient at 3 PM (Miguel Barbosa) 68 male will be admitted for nausea vomiting diarrhea with increasing renal failure (Miguel Sherwood) - Lab Data Lab Results 03/06/24 03/06/24 03/06/24 Range/Units 14:12 14:12 14:12 WBC 9.0 (3.8-10.6) k/uL RBC 3.67 L (4.30-5.90) m/uL Hgb 10.4 L (13.0-17.5) gm/dL Hct 32.2 L (39.0-53.0) % MCV 87.7 (80.0-100.0) fL MCH 28.3 (25.0-35.0) pg MCHC 32.3 (31.0-37.0) g/dL RDW 14.1 (11.5-15.5) % Plt Count 164 (150-450) k/uL MPV 9.4 Neutrophils % 71 % Lymphocytes % 16 % Monocytes % 7 % Eosinophils % 4 % Basophils % 1 % Neutrophils # 6.4 (1.3-7.7) k/uL Lymphocytes # 1.4 (1.0-4.8) k/uL Monocytes # 0.7 (0-1.0) k/uL Eosinophils # 0.4 (0-0.7) k/uL Basophils # 0.1 (0-0.2) k/uL Sodium 136 L (137-145) mmol/L Potassium 4.7 (3.5-5.1) mmol/L Chloride 107 (98-107) mmol/L Carbon Dioxide 22 (22-30) mmol/L Anion Gap 7 mmol/L BUN 80 H (9-20) mg/dL Creatinine 3.19 H (0.66-1.25) mg/dL Est GFR (CKD-EPI)AfAm 22 (>60 ml/min/1.73 sqM) Est GFR (CKD-EPI)NonAf 19 (>60 ml/min/1.73 sqM) Glucose 267 H (74-99) mg/dL Plasma Lactic Acid Gianluca 1.1 (0.7-2.0) mmol/L Calcium 8.6 (8.4-10.2) mg/dL Total Bilirubin 0.8 (0.2-1.3) mg/dL AST 20 (17-59) U/L ALT 14 (4-49) U/L Alkaline Phosphatase 107 (38-126) U/L Total Protein 5.7 L (6.3-8.2) g/dL Albumin 3.1 L (3.5-5.0) g/dL Amylase 68 (30-110) U/L Lipase 90 (23-300) U/L Disposition <Miguel Barbosa - Last Filed: 03/06/24 14:55> Is patient prescribed a controlled substance at d/c from ED?: No Time of Disposition: 19:00 <Miguel Sherwood - Last Filed: 03/06/24 19:13> Clinical Impression: Diarrhea, CKD (chronic kidney disease), Leukocytosis, Weakness Disposition: ADMITTED IP TO THIS HOSP Condition: Good Referrals: Johny Granado MD [Primary Care Provider] - 1-2 days
[2024-03-06] MEDS: SODIUM CHLORIDE 0.9% 1,000 ML IV STA ×2 (14:35→17:36)
[2024-03-06 14:41] LABS: Basophils # (A) 0.1 k/uL (0-0.2); Basophils % (A) 1 %; Eosinophils # (A) 0.4 k/uL (0-0.7); Eosinophils % (A) 4 %; HCT 32.2 % (39.0-53.0); HGB 10.4 gm/dL (13.0-17.5); Lymphocytes # (A) 1.4 k/uL (1.0-4.8); Lymphocytes % (A) 16 %; MCH 28.3 pg (25.0-35.0); MCHC 32.3 g/dL (31.0-37.0); MCV 87.7 fL (80.0-100.0); Mean Platelet Volume 9.4; Monocytes # (A) 0.7 k/uL (0-1.0); Monocytes % (A) 7 %; Neutrophils # (A) 6.4 k/uL (1.3-7.7); Neutrophils % (A) 71 %; Platelet Count 164 k/uL (150-450); RBC 3.67 m/uL (4.30-5.90); RDW 14.1 % (11.5-15.5)
[2024-03-06 14:51] LABS: ALT 14 U/L (4-49); AST 20 U/L (17-59); African American GFR (CKD) 22 (>60 ml/min/1.73 sqM); Albumin 3.1 g/dL (3.5-5.0); Alkaline Phosphatase 107 U/L (38-126); Amylase 68 U/L (30-110); Anion Gap 7 mmol/L; Blood Urea Nitrogen 80 mg/dL (9-20); Calcium 8.6 mg/dL (8.4-10.2); Carbon Dioxide 22 mmol/L (22-30); Chloride 107 mmol/L (98-107); Glucose 267 mg/dL (74-99); Lipase 90 U/L (23-300); Non-African American GFR(CKD) 19 (>60 ml/min/1.73 sqM); Potassium 4.7 mmol/L (3.5-5.1); Sodium 136 mmol/L (137-145); Total Bilirubin 0.8 mg/dL (0.2-1.3); Total Protein 5.7 g/dL (6.3-8.2)
[2024-03-06] MEDS ORDERED: NALOXONE 0.4 MG/ML 1 ML VIAL IV PRN (19:08)
[2024-03-06] MEDS ORDERED: ONDANSETRON 4 MG/2 ML VIAL IVP PRN (19:08)
[2024-03-06] MEDS ORDERED: MORPHINE SULFATE 4 MG/ML SYRINGE IV PRN (19:08)
[2024-03-06 20:38] LABS: Glucose,Whole Blood 212 mg/dL (70-110)
[2024-03-06] MEDS: SODIUM CHLORIDE 0.9% 1,000 ML IV SCH (21:06)
[2024-03-06] MEDS: FORMOTEROL FUMARATE 20 MCG/2 ML NEBU INHALATION SCH (21:29)
[2024-03-06] MEDS: INSULIN DETEMIR (LEVEMIR) 100 UNIT/ML SYR SQ SCH (22:10)
[2024-03-06] MEDS: METOPROLOL TARTRATE 25 MG TAB PO SCH (22:10)
[2024-03-07] MEDS: LEVOTHYROXINE 50 MCG TAB PO SCH (08:31)
[2024-03-07] MEDS: PANTOPRAZOLE 40 MG/10 ML VIAL IV SCH (08:31)
[2024-03-07] MEDS: LEVOTHYROXINE 100 MCG TAB PO SCH (08:31)
[2024-03-07] MEDS: TAMSULOSIN 0.4 MG CAP.ER.24H PO SCH (08:31)
[2024-03-07] MEDS: FERROUS SULFATE 325 MG TAB PO SCH (08:31)
[2024-03-07] MEDS: ATORVASTATIN 40 MG TAB PO SCH (08:31)
[2024-03-07] MEDS: FOLIC ACID 1 MG TAB PO SCH (08:31)
[2024-03-07] MEDS: ASPIRIN 81 MG PO SCH (08:31)
[2024-03-07 10:07] LABS: Basophils # (A) 0.07 X 10*3/uL (0.00-0.10); Basophils % (A) 0.8 %; HCT 28.9 % (39.6-50.0); HGB 9.4 g/dL (13.0-17.0); Lymphocytes # (A) 1.64 X 10*3/uL (0.90-5.00); Lymphocytes % (A) 19.6 %; MCH 28.9 pg (27.0-32.0); MCHC 32.5 g/dL (32.0-37.0); MCV 88.9 FL (80.0-97.0); Mean Platelet Volume 11.1 FL (9.5-12.2); Monocytes # (A) 0.73 X 10*3/uL (0.20-1.00); Monocytes % (A) 8.7 %; NRBC Per 100 WBC 0 X 10*3/uL (0.00-0.01); Neutrophils % (A) 64.5 %; Platelet Count 167 X 10*3/uL (140-440); RBC 3.25 X 10*6/uL (4.40-5.60); RDW 13.6 % (11.5-14.5); WBC 8.37 X 10*3/uL (4.50-10.00)
[2024-03-07 10:21] LABS: ALT 12 U/L (10-49); AST 20 U/L (14-35); Albumin 3.2 g/dL (3.8-4.9); Albumin/Globulin Ratio 1.39 Ratio (1.60-3.17); Alkaline Phosphatase 87 U/L (41-126); BUN/Creat Ratio 21.23 Ratio (12.00-20.00); Blood Urea Nitrogen 63.7 mg/dL (9.0-27.0); Calcium 8.4 mg/dL (8.7-10.3); Carbon Dioxide 23.2 mmol/L (21.6-31.8); Chloride 106 mmol/L (96-109); Globulin 2.3 g/dL (1.6-3.3); Glucose 145 mg/dL (70-110); Magnesium 1.9 mg/dL (1.5-2.4); Phosphorus 3.8 mg/dL (2.4-5.1); Potassium 4.3 mmol/L (3.5-5.5); Sodium 140 mmol/L (135-145); Total Bilirubin 0.3 mg/dL (0.3-1.2); Total Protein 5.5 g/dL (6.2-8.2)
[2024-03-07 11:20] LABS: Glucose,Whole Blood 230 mg/dL (70-110)
[2024-03-07] MEDS: SODIUM FERRIC GLUCONAT-SUCROSE 125 MG in SODIUM CHLORIDE 0.9% 100 ML IVPB SCH (12:30)
[2024-03-07 16:39] LABS: Glucose,Whole Blood 196 mg/dL (70-110)
[2024-03-07 19:59] LABS: Glucose,Whole Blood 229 mg/dL (70-110)
--- NOTE | 2024-03-08 00:22 | HP ---
HISTORY AND PHYSICAL HISTORY AND PHYSICAL: A 68-year-old white male with a history of C diff, chronic severe diarrhea at home, dehydrated, admitted for dehydration. Overnight, did test C diff. He also has worsening renal function over the last 2 weeks, the last month. He had a recent surgery with the wound site healing due to a tunneling into the leg. He was adding antibiotics for about a month and a half ago. He has diarrhea constantly, some acute worsening of his renal failure, dehydration. We will admit him into the hospital, give him fluids overnight, hold his diuretics. HOME MEDICATIONS: 1. Lipitor 40 daily. 2. Metoprolol 25 b.i.d. 3. Toujeo daily. 4. Synthroid 200 mcg daily. 5. Trulicity 0.75 mg weekly. 6. Lasix 40 mg daily. 7. Losartan/hydrochlorothiazide 50/12.5 one daily. 8. Allopurinol 100 daily. 9. NovoLog before meals and at bedtime. 10.Synthroid 250 mcg daily. 11.Flomax 0.4 mg daily. ALLERGIES: Empagliflozin, iodine. PAST MEDICAL HISTORY: Heart failure, COPD, diabetes mellitus, GERD, hearing disorder, deafness, dyslipidemia, hypertension, myocardial infarction, osteoarthritis, renal disease, skin disorder, thyroid disorder, insulin dependent diabetes mellitus type 2, ischemic cardiomyopathy, atrial fibrillation. PAST SURGICAL HISTORY: PCI with 1 stent, permanent pacemaker, AICD. FAMILY HISTORY: Sister with COPD, hypertension. Father, myocardial infarction. Brother, CVA, TIA. Mother, diabetes . PHYSICAL EXAMINATION: GENERAL: White male. He is obese. He has bilateral AKA. He is in no acute distress. Dry skin turgor. HEENT: Dry mucous membranes. LUNGS: Scattered rhonchi and wheeze. CARDIOVASCULAR: S1, S2. GI: Soft, nontender. EXTREMITIES: BKA bilaterally. . He has a 0.5 cm wound in his distal stump. PSYCH: Fair mood and affect. NEUROLOGIC: Alert and oriented x3. SKIN: Warm, dry. VITAL SIGNS: Blood pressure 100 to 117 over 60s to 70s, respiratory rate 16, temperature 97.9, O2 sat 99% to 100%. LABORATORY DATA: White count 9. BUN 80, creatinine 3.19. Hemoglobin is 10.4, 267, lactic acid is 1.1, albumin is 3.1. ASSESSMENT: Acute tubular necrosis, dehydration, acute on chronic worsening of his renal function, hyponatremia, rule out C diff for chronic diarrhea, history of COPD, diabetes mellitus, asthma, . Continue current treatments. Prognosis guarded. Please see further orders. MMELÍASL / IJN: [id number] /
[2024-03-08 05:54] LABS: Glucose,Whole Blood 60 mg/dL (70-110)
[2024-03-08 06:19] LABS: Glucose,Whole Blood 61 mg/dL (70-110)
[2024-03-08 06:24] LABS: Glucose,Whole Blood 115 mg/dL (70-110)
[2024-03-08 08:04] VITALS: RESP 18
[2024-03-08 09:31] LABS: Basophils # (A) 0.06 X 10*3/uL (0.00-0.10); Basophils % (A) 0.8 %; Eosinophils % (A) 6.3 %; HCT 27.2 % (39.6-50.0); HGB 8.6 g/dL (13.0-17.0); Lymphocytes # (A) 1.52 X 10*3/uL (0.90-5.00); Lymphocytes % (A) 19.2 %; MCH 28.2 pg (27.0-32.0); MCHC 31.6 g/dL (32.0-37.0); MCV 89.2 FL (80.0-97.0); Monocytes # (A) 0.73 X 10*3/uL (0.20-1.00); Monocytes % (A) 9.2 %; NRBC Per 100 WBC 0 X 10*3/uL (0.00-0.01); Neutrophils # (A) 5.08 X 10*3/uL (1.80-7.70); Neutrophils % (A) 64.2 %; Platelet Count 161 X 10*3/uL (140-440); RBC 3.05 X 10*6/uL (4.40-5.60); RDW 13.7 % (11.5-14.5); WBC 7.91 X 10*3/uL (4.50-10.00)
[2024-03-08 10:00] LABS: ALT 10 U/L (10-49); AST 20 U/L (14-35); Albumin/Globulin Ratio 1.58 Ratio (1.60-3.17); Alkaline Phosphatase 72 U/L (41-126); BUN/Creat Ratio 19.33 Ratio (12.00-20.00); Blood Urea Nitrogen 52.2 mg/dL (9.0-27.0); Carbon Dioxide 22.6 mmol/L (21.6-31.8); Chloride 110 mmol/L (96-109); Globulin 1.9 g/dL (1.6-3.3); Glucose 70 mg/dL (70-110); Potassium 4.4 mmol/L (3.5-5.5); Sodium 142 mmol/L (135-145); Total Bilirubin 0.3 mg/dL (0.3-1.2); Total Protein 4.9 g/dL (6.2-8.2)
[2024-03-08 11:30] LABS: Glucose,Whole Blood 174 mg/dL (70-110)
[2024-03-08 16:26] LABS: Glucose,Whole Blood 168 mg/dL (70-110)
[2024-03-08 20:49] LABS: Glucose,Whole Blood 233 mg/dL (70-110)
[2024-03-09 05:47] LABS: Glucose,Whole Blood 232 mg/dL (70-110)
[2024-03-09] MEDS: PANTOPRAZOLE 40 MG TABLET PO SCH (06:44)
--- NOTE | 2024-03-09 06:57 | PN ---
PROGRESS NOTE SUBJECTIVE: This is a 68-year-old white male, came in with acute renal insufficiency. C diff pending. He had urine clean-catch which showed no growth. He has chronic wound in his leg. LABS: White count is 8.6, creatinine is down to 2.7, BUN is 52, GFR is 25, albumin is 3. C diff was done. Possibly he will be able to go home as he is getting more hydrated. Sat 95 on room air. OBJECTIVE: VITAL SIGNS: Blood pressure 123/65, temperature 98, pulse 62, respiratory rate 16 to 18. CARDIOVASCULAR: S1, S2. LUNGS: Transmitted upper sounds. HEMATOLOGY: Negative for Homans. PSYCH: Fair mood and affect. INTEGUMENT: Shows wound on the left leg is with the wound culture. Prognosis guarded. MMODL / IJN: [id number] /
[2024-03-09 07:25] VITALS: BP 128/68; TEMP 97.7
[2024-03-09 09:41] LABS: Basophils # (A) 0.05 X 10*3/uL (0.00-0.10); Basophils % (A) 0.6 %; Eosinophils # (A) 0.41 X 10*3/uL (0.04-0.35); HCT 27.2 % (39.6-50.0); HGB 8.6 g/dL (13.0-17.0); Lymphocytes # (A) 1.34 X 10*3/uL (0.90-5.00); Lymphocytes % (A) 16.4 %; MCHC 31.6 g/dL (32.0-37.0); MCV 91.6 FL (80.0-97.0); Mean Platelet Volume 11.4 FL (9.5-12.2); Monocytes % (A) 7.3 %; NRBC Per 100 WBC 0 X 10*3/uL (0.00-0.01); Neutrophils # (A) 5.76 X 10*3/uL (1.80-7.70); Neutrophils % (A) 70.3 %; Platelet Count 162 X 10*3/uL (140-440); RBC 2.97 X 10*6/uL (4.40-5.60); RDW 13.7 % (11.5-14.5); WBC 8.19 X 10*3/uL (4.50-10.00)
[2024-03-09 09:44] LABS: BUN/Creat Ratio 18.04 Ratio (12.00-20.00); Blood Urea Nitrogen 43.3 mg/dL (9.0-27.0); Carbon Dioxide 21.8 mmol/L (21.6-31.8); Chloride 107 mmol/L (96-109); Glucose 232 mg/dL (70-110); Potassium 4.3 mmol/L (3.5-5.5); Sodium 138 mmol/L (135-145)
[2024-03-09 09:45] LABS: ALT 11 U/L (10-49); AST 18 U/L (14-35); Albumin 2.9 g/dL (3.8-4.9); Albumin/Globulin Ratio 1.38 Ratio (1.60-3.17); Alkaline Phosphatase 90 U/L (41-126); Calcium 7.9 mg/dL (8.7-10.3); Globulin 2.1 g/dL (1.6-3.3); Total Bilirubin 0.3 mg/dL (0.3-1.2)
[2024-03-09 10:09] VITALS: PULSE 68
[2024-03-09 11:06] LABS: Glucose,Whole Blood 179 mg/dL (70-110)
== END 2024-03-09 14:09 | disposition home or self-care (01) ==
LOC: EC 12:41 → 6NMEDSUR 19:09 → 4SSUR 20:22
PROVIDERS: ADMIT Family Medicine; ATTEND Family Medicine
DX: N17.0 Acute kidney failure with tubular necrosis (principal); E86.0 Dehydration; E87.1 Hypo-osmolality and hyponatremia; I11.0 Hypertensive heart disease with heart failure; I50.9 Heart failure, unspecified; J44.9 Chronic obstructive pulmonary disease, unspecified; K21.9 Gastro-esophageal reflux disease without esophagitis; E78.5 Hyperlipidemia, unspecified; E11.40 Type 2 diabetes mellitus with diabetic neuropathy, unspecified; I25.5 Ischemic cardiomyopathy; I48.0 Paroxysmal atrial fibrillation; I25.2 Old myocardial infarction; E66.9 Obesity, unspecified; Z68.32 Body mass index [BMI] 32.0-32.9, adult; Z87.891 Personal history of nicotine dependence; Z89.612 Acquired absence of left leg above knee; Z89.611 Acquired absence of right leg above knee; Z95.5 Presence of coronary angioplasty implant and graft; Z95.810 Presence of automatic (implantable) cardiac defibrillator; Z79.899 Other long term (current) drug therapy; Z79.4 Long term (current) use of insulin; Z79.890 Hormone replacement therapy; Z79.85 Long-term (current) use of injectable non-insulin antidiabetic drugs; Z79.82 Long term (current) use of aspirin
CPT/HCPCS: 96376; 96361 ×4; 96365; 96366 ×2; 96375; 99285; 36415; 94640 ×6; 94760; 80053 ×4; 82150; 83605; 83690; 83735; 84100; 85025 ×4; 87086; 84145; G0378 ×5; J2916 ×3; C9113 ×2